=== PATIENT | male | born 1945 | race Caucasian/White ===

== ENCOUNTER 2020-04-14 11:00 | Outpatient (RCR) | payer MEDICARE, SELFPAY ==
[2020-04-07 09:27] VITALS: BP 107/47; PULSE 72; RESP 16; TEMP 36.5
--- NOTE | 2020-04-07 12:54 | PCM.WC.HP ---
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 Code(s): E11.622 - Type 2 diabetes mellitus with other skin ulcer; L97.319 - Non-pressure chronic ulcer of right ankle with unspecified severity (3) Diabetic ulcer of right lower leg Status: Chronic Code(s): E11.622 - Type 2 diabetes mellitus with other skin ulcer; L97.919 - Non-pressure chronic ulcer of unspecified part of right lower leg with unspecified severity (4) Alcoholism Status: Chronic Code(s): F10.20 - Alcohol dependence, uncomplicated (5) Decubitus ulcer of right hip, stage 4 Status: Chronic Code(s): L89.214 - Pressure ulcer of right hip, stage 4 (6) Diabetes mellitus type 2 in nonobese Status: Chronic Code(s): E11.9 - Type 2 diabetes mellitus without complications (7) Bipolar disorder Status: Chronic Code(s): F31.9 - Bipolar disorder, unspecified (8) Hyperlipidemia Status: Chronic Code(s): E78.5 - Hyperlipidemia, unspecified (9) Hypertension Status: Chronic Code(s): I10 - Essential (primary) hypertension History of Present Illness Date of Service: 04/07/20 Chief Complaint: Ulcers of right foot, right ankle, right lateral leg, and right hip History of Wound: The patient presents to the wound healing center today, 04/07/2020, for an initial evaluation of right lower extremity ulcers of the foot, ankle, lateral leg and hip. He has a past medical history significant for type 2 diabetes mellitus, hypertension, hyperlipidemia, anemia, tobacco use and alcoholism. He states he has been sober for about 4 months. He no longer takes Metformin, and states this was discontinued due to causing renal insufficiency. He states his diabetes is currently managed with diet and exercise, though he has been not unable to exercise in recent months. He states that in December he suffered a fall and laid on the ground for 5 days, during which time he developed these ulcers. He reports subsequent impaired movement and sensation of his right lower extremity from the mid lower leg to his toes. He was admitted to a senior living following hospitalization, and was receiving wound debridement approximately every 2 weeks. Santyl was used on the ulcers of his right lower leg, ankle and foot. A wound VAC was used for his right hip ulcer. He was discharged from the senior living on 04/03/2020, at which time the wound VAC was discontinued. Since 04/03/2020, the patient has been using wet to dry gauze dressings to the right hip daily. He is receiving home health care from [facility]. He reports he is able to ambulate with the use of a walker, and also uses a wheelchair at times. He denies any fever or chills. He states there was a concern for infection in his right lateral leg ulcer, and he was started on doxycycline, which he is currently taking. He reports occasional nausea, but denies vomiting or diarrhea. He also reports a decreased appetite. He denies any recent copious, purulent, or foul-smelling drainage from his ulcers. Past Medical History Past Medical History: Chronic Problems Diabetic ulcer of right foot (Chronic) Diabetic ulcer of right ankle (Chronic) Diabetic ulcer of right lower leg (Chronic) Decubitus ulcer of right hip, stage 4 (Chronic) Essential tremor (Chronic) Hyperlipidemia (Chronic) Hypertension (Chronic) Diabetes mellitus type 2 in nonobese (Chronic) Bipolar disorder (Chronic) Alcoholism (Chronic) Surgical History: - - ruptured colon repair. Allergies/Adverse Reactions: Allergies No Known Allergies Allergy (Verified 04/07/20 09:55) Home Medications: Ambulatory Orders Medication Instructions Recorded Gabapentin [Gralise] 600 mg PO QHS 09/12/16 Metoprolol Succinate 100 mg PO DAILY 09/12/16 Atorvastatin Calcium [Lipitor] 40 mg PO DAILY 09/13/16 Bacitracin Ointment 1 applic TOPICAL TID #1 tube 09/18/16 Magnesium Oxide [Mag-Ox 400] 400 mg PO DAILYCM #30 tablet 09/18/16 metFORMIN HCl [Glucophage] 500 mg PO BIDCM #60 tablet 09/18/16 - Family History Maternal - - mother is still alive, had small strokes. Paternal - - father had a stroke Smoking Status: Current every day smoker Review of Systems Constitutional: Denies: Chills, Fever, Night Sweats Eyes: Denies: Conjunctivae Inflammation, Eyelid Inflammation, Redness HEENT: Reports: Difficulty Hearing, Hard of Hearing Cardiovascular: Denies: Chest Pain Respiratory: Reports: Cough Gastrointestinal: Reports: Nausea. Denies: Diarrhea, Vomiting Genitourinary: Denies: Dysuria, Hematuria Musculoskeletal: Reports: Leg Pain - On palpation/manipulation of ulcer. Denies: Foot Pain Skin: Reports: Wounds - Ulcers of right hip, right lateral leg, right ankle, and right foot Neurological: Reports: Tremor. Denies: Change in Speech, Confusion Psychiatric: Reports: - - Bipolar disorder Endocrine: Reports: - - Type II diabetes mellitus Hematologic/ Lymphatic: Reports: Anemia - Physical Exam Vital Signs Temp Pulse Resp BP 97.7 F L 72 16 107/47 L 04/07/20 09:27 04/07/20 09:27 04/07/20 09:27 04/07/20 09:27 General: Alert, Cooperative, No apparent distress HEENT: Atraumatic Oral: Moist Mucosa Neck: Supple Lungs: Clear to auscultation, Normal air movement, No rhonchi, No wheeze, No rales Cardiovascular: Regular rate, Regular Rhythm, Murmur Abdomen: Bowel Sounds Present, Soft Extremities: No clubbing, No cyanosis, No edema, Capillary Refill Less than 3 Seconds, Peripheral Pulses Normal Skin: Ulcer/ Wound - Stage IV right hip ulcer, does not probe to bone, undermining present. Ulcers of right lateral leg, right ankle, and right foot with subcutaneous layers exposed. Small to moderate amounts of slough present. No clinical signs of infection including periulcer erythema, warmth, or purulent drainage Wound Measurements and Assessment WC - Nurse 1 - General Ulcer Measurement Start: 04/07/20 09:17 Freq: Status: Active Protocol: Activity Type Activity Date Activity User E-Sign Co-Sign Detail Recorded Client Recorded Date Recorded By Document 04/07/20 09:27 MS [id number] 04/07/20 09:52 MS 04/07/20 09:27 Wound Center Nurse 1 [Ulcer Assessment] #3 R Lat LE -Current Size (cm) - Length 5 -Current Size (cm) - Width 2.5 -Current Size (cm) - Depth 0.1 -Total Square Cm 12.5 -Photo Taken Yes -Exudate Amt Medium -Exudate Type Serosanguineous -Wound Margin Distinct, Outline Attached -Granulation Amt Medium (34-66%) -Granulation Quality Red -Necrosis Amt Medium (34-66%) -Necrotic Tissue Type Adherent Slough -Structure Exposed N/A -Texture (Cammie-wound Skin Appearance) Scarring -Moisture (Cammie-wound Skin Appearance No Abnormality ) -Color (Cammie-wound Skin Appearance) No Abnormality -Temperature (Cammie-wound Skin No Abnormality Appearance) (Pt Warm) -Tenderness on Palpation (Cammie-wound No Skin Appearance) -Ulcer Cleansing Wound Cleanser -Foul Odor after Cleansing No -Anesthetic Used 4% Lidocaine Solution #2 R Hip -Current Size (cm) - Length 4 -Current Size (cm) - Width 4.2 -Current Size (cm) - Depth 3 -Total Square Cm 16.8 -Photo Taken Yes -Undermining/Tunneling Starts (O' 3 clock) -Undermining/Tunneling Ends (O'clock) 5 -Maximum Distance (cm) 2.7 -Classification - Thickness Full Thickness without Exposed Support Structure -Exudate Amt Medium -Exudate Type Serosanguineous -Wound Margin Distinct, Outline Attached -Granulation Amt Medium (34-66%) -Granulation Quality Red -Necrosis Amt Medium (34-66%) -Necrotic Tissue Type Adherent Slough -Structure Exposed N/A -Texture (Cammie-wound Skin Appearance) Scarring -Moisture (Cammie-wound Skin Appearance No Abnormality, ) Dry/Scaly -Color (Cammie-wound Skin Appearance) No Abnormality -Temperature (Cammie-wound Skin No Abnormality Appearance) (Pt Warm) -Tenderness on Palpation (Cammie-wound No Skin Appearance) -Ulcer Cleansing Wound Cleanser -Foul Odor after Cleansing No -Anesthetic Used 4% Lidocaine Solution #1 R ankle -Current Size (cm) - Length 1.1 -Current Size (cm) - Width 0.9 -Current Size (cm) - Depth 0.3 -Total Square Cm 0.99 -Photo Taken Yes -Classification - Thickness Full Thickness without Exposed Support Structure -Exudate Amt Medium -Exudate Type Serosanguineous -Wound Margin Distinct, Outline Attached -Granulation Amt None Present (0 %) -Necrosis Amt Large (67-100%) -Necrotic Tissue Type Adherent Slough -Structure Exposed N/A -Texture (Cammie-wound Skin Appearance) Scarring -Moisture (Cammie-wound Skin Appearance No Abnormality ) -Color (Cammie-wound Skin Appearance) No Abnormality -Temperature (Cammie-wound Skin No Abnormality Appearance) (Pt Warm) -Tenderness on Palpation (Cammie-wound No Skin Appearance) -Ulcer Cleansing Wound Cleanser -Foul Odor after Cleansing No -Anesthetic Used 4% Lidocaine Solution Musculoskeletal: Muscle Wasting, Tenderness - On palpation/debridement of right hip and right lateral leg Neurological: Unsteady Gait Psych/Mental Status: Normal Affect, Appropriate Debridement Note Wound debrided: Right foot ulcer Laterality: Right Wound Grade/Stage: Mendez 1 Type of Debridement: Excisional debridement Anesthesia Used: 4% Lidocaine Solution Depth: in the subcutaneous layer Percentage of wound debrided: 100 Instrument Used: 3mm curette Tissue Removed: Slough and devitalized tissue Severity: Fat Layer Exposed Amount of bleeding with debridement: Mild Bleeding Controlled with: Pressure Patient tolerated procedure well - Additional Wound Wound debrided: Right ankle ulcer Laterality: Right Wound Grade/Stage: Mendez 1 Type of Debridement: Excisional debridement Anesthesia Used: 4% Lidocaine Solution Depth: in the subcutaneous layer Percentage of wound debrided: 100 Instrument Used: 5mm curette Tissue Removed: Slough and devitalized tissue Severity: Fat Layer Exposed Amount of bleeding with debridement: Mild Bleeding Controlled with: Pressure Patient tolerated procedure: Patient tolerated procedure well - Additional Wound Wound debrided: Right lateral leg ulcer Wound Grade/Stage: Stage II Type of Debridement: Excisional debridement Anesthesia Used: 4% Lidocaine Solution Depth: in the subcutaneous layer Percentage of wound debrided: 100 Instrument Used: 7mm curette Tissue Removed: Slough and devitalized tissue Severity: Fat Layer Exposed Amount of bleeding with debridement: Mild Bleeding Controlled with: Pressure Patient tolerated procedure: Patient tolerated procedure well - Additional Wound Wound debrided: Right hip ulcer Wound Grade/Stage: Stage IV Type of Debridement: Excisional debridement Anesthesia Used: 4% Lidocaine Solution Depth: to muscle Percentage of wound debrided: 100 Instrument Used: 7mm curette Tissue Removed: Slough and devitalized tissue Severity: Fat Layer Exposed Amount of bleeding with debridement: Mild Bleeding Controlled with: Pressure Patient tolerated procedure: Patient tolerated procedure well Assessment/Plan Active Problems 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 Wet-to-dry dressing applied to the right hip. Aquacel Ag dressing applied to the right lateral leg, right ankle, and right foot. Given the duration of the wound and failure of the wound to respond to standard wound care, we will apply for advanced skin substitutes for the diabetic ulcers of the right lateral leg, right ankle, and right foot. Given the depth and size of the right hip ulcer, we will apply for a wound VAC. We will initiate Dakin's wet-to-dry dressings to the right hip until wound VAC approval is obtained. We will resume the use of Santyl to the right lateral leg, right ankle, and right foot ulcers for the next week, with the plan to initiate use of advanced skin substitutes if/when approved. At home wound-care instructions: Patient's ulcers are to be cleansed daily with antibacterial soap and water. Dressings are to be changed daily. Compression: No edema is present today. Compression will be deferred for the time being. Off-loading: Avoid pressure at ulcer sites. Avoid prolonged standing or dangling of the legs. When seated, keep feet elevated at chest level. A Roho cushion will be ordered for the patient to use when utilizing his wheelchair. He was instructed on appropriate offloading when seated/lying down. Frequent position changes were encouraged. Diet: Patient encouraged to increase protein and vitamin C intake while taking caution to avoid high carbohydrate and/or sugar intake. Labs/cultures/imaging: Cultures ordered and collected today. Routine baseline labwork ordered. Vascular studies deferred for the time being, as peripheral pulses are normal and there is no presence of edema. Follow-up: Return to clinic in 1 week for re-evaluation. Return sooner or report to the emergency room should symptoms worsen, or new symptoms arise. Note: [employer] speech recognition radiochemical technician software was used to create portions of this document. Sound-alike and misspelled words, as well as other radiochemical technician errors may be contained in the documentation. Office Visits / Consults: [id number] OV L4 New [id number]: [id number] Berna subq tissue 20 sq cm/< - [id number] x1 and [id number] x1
[2020-04-14 11:43] VITALS: BP 100/36; PULSE 66; TEMP 36.7
--- NOTE | 2020-04-14 13:00 | PCM.WC.PN ---
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 Code(s): E11.622 - Type 2 diabetes mellitus with other skin ulcer; L97.319 - Non-pressure chronic ulcer of right ankle with unspecified severity (3) Diabetic ulcer of right lower leg Status: Chronic Code(s): E11.622 - Type 2 diabetes mellitus with other skin ulcer; L97.919 - Non-pressure chronic ulcer of unspecified part of right lower leg with unspecified severity (4) Alcoholism Status: Chronic Code(s): F10.20 - Alcohol dependence, uncomplicated (5) Decubitus ulcer of right hip, stage 4 Status: Chronic Code(s): L89.214 - Pressure ulcer of right hip, stage 4 (6) Diabetes mellitus type 2 in nonobese Status: Chronic Code(s): E11.9 - Type 2 diabetes mellitus without complications (7) Bipolar disorder Status: Chronic Code(s): F31.9 - Bipolar disorder, unspecified (8) Hyperlipidemia Status: Chronic Code(s): E78.5 - Hyperlipidemia, unspecified (9) Hypertension Status: Chronic Code(s): I10 - Essential (primary) hypertension Type of Wound Date of Service: 04/14/20 Chief Complaint: Ulcers of right foot, right ankle, right lateral leg, and right hip History of Wound: The patient presents to the wound healing center today, 04/07/2020, for an initial evaluation of right lower extremity ulcers of the foot, ankle, lateral leg and hip. He has a past medical history significant for type 2 diabetes mellitus, hypertension, hyperlipidemia, anemia, tobacco use and alcoholism. He states he has been sober for about 4 months. He no longer takes Metformin, and states this was discontinued due to causing renal insufficiency. He states his diabetes is currently managed with diet and exercise, though he has been not unable to exercise in recent months. He states that in December he suffered a fall and laid on the ground for 5 days, during which time he developed these ulcers. He reports subsequent impaired movement and sensation of his right lower extremity from the mid lower leg to his toes. He was admitted to a skilled nursing following hospitalization, and was receiving wound debridement approximately every 2 weeks. Santyl was used on the ulcers of his right lower leg, ankle and foot. A wound VAC was used for his right hip ulcer. He was discharged from the skilled nursing on 04/03/2020, at which time the wound VAC was discontinued. Since 04/03/2020, the patient has been using wet to dry gauze dressings to the right hip daily. He is receiving home health care from [place] at home. He reports he is able to ambulate with the use of a walker, and also uses a wheelchair at times. He denies any fever or chills. He states there was a concern for infection in his right lateral leg ulcer, and he was started on doxycycline, which he is currently taking. He reports occasional nausea, but denies vomiting or diarrhea. He also reports a decreased appetite. He denies any recent copious, purulent, or foul-smelling drainage from his ulcers. Progress of Wound: Home health has been performing daily wet-to-dry dressings with Dakin's to the right hip ulcer and daily Santyl dressing changes to the ulcers of the right leg, right ankle, and right foot. The patient denies any fever or chills. He completed a course of doxycycline on 04/11/2020. His right hip culture was positive for 1+ MRSA, susceptible to clindamycin and Bactrim. He was started on Bactrim on 04/11/2020 by his primary care doctor. He reports erythema and swelling of his right lower extremity last night, which is much improved this morning. A culture from his right leg was collected today. - Physical Exam Vital Signs Temp Pulse Resp BP 98.0 F 66 16 100/36 L 04/14/20 11:43 04/14/20 11:43 04/07/20 09:27 04/14/20 11:43 General: Alert, Cooperative, No apparent distress Oral: Moist Mucosa Lungs: Normal air movement Extremities: No clubbing, No cyanosis, Capillary Refill Less than 3 Seconds, Edema - Edema right lower extremity, Peripheral Pulses Normal, Tenderness - On debridement of right leg ulcer Skin: Ulcer/ Wound - Stage IV R hip ulcer, does not probe to bone, undermining present. Ulcers of R lateral leg, R ankle, & R foot w/ subcu layers exposed. Small to moderate amounts of slough present. Generalized, mild erythema, warmth, and edema of R lower extremity from knee to toes. No purulent/malodorous drainage Wound Measurements and Assessment WC - Nurse 1 - General Ulcer Measurement Start: 04/07/20 09:17 Freq: Status: Active Protocol: Activity Type Activity Date Activity User E-Sign Co-Sign Detail Recorded Client Recorded Date Recorded By Document 04/14/20 11:43 HARDIK [id number] 04/14/20 11:46 HARDIK 04/14/20 11:43 Wound Center Nurse 1 [Ulcer Assessment] #4 Right Lat Foot -Current Size (cm) - Length 0.3 -Current Size (cm) - Width 0.6 -Current Size (cm) - Depth 0.1 -Total Square Cm 0.18 -Exudate Amt Small -Exudate Type Serosanguineous -Wound Margin Distinct, Outline Attached -Granulation Amt Medium (34-66%) -Granulation Quality Red -Necrosis Amt Medium (34-66%) -Necrotic Tissue Type Adherent Slough -Texture (Cammie-wound Skin Appearance) Assessed, Scarring -Moisture (Cammie-wound Skin Appearance No Abnormality, ) Assessed -Color (Cammie-wound Skin Appearance) No Abnormality, Assessed -Temperature (Cammie-wound Skin No Abnormality Appearance) (Pt Warm) -Tenderness on Palpation (Cammie-wound No Skin Appearance) -Ulcer Cleansing Rinsed/ Irrigated with Saline -Foul Odor after Cleansing No -Anesthetic Used 4% Lidocaine Solution #3 R Lat LE -Current Size (cm) - Length 4.8 -Current Size (cm) - Width 3 -Current Size (cm) - Depth 0.1 -Total Square Cm 14.4 -Exudate Amt Medium -Exudate Type Serosanguineous -Wound Margin Distinct, Outline Attached -Granulation Amt Medium (34-66%) -Granulation Quality Red -Necrosis Amt Medium (34-66%) -Necrotic Tissue Type Adherent Slough -Texture (Cammie-wound Skin Appearance) Assessed, Scarring -Moisture (Cammie-wound Skin Appearance No Abnormality, ) Assessed -Color (Cammie-wound Skin Appearance) No Abnormality, Assessed -Temperature (Cammie-wound Skin No Abnormality Appearance) (Pt Warm) -Tenderness on Palpation (Cammie-wound No Skin Appearance) -Ulcer Cleansing Rinsed/ Irrigated with Saline -Foul Odor after Cleansing No -Anesthetic Used 4% Lidocaine Solution #2 R Hip -Current Size (cm) - Length 2.9 -Current Size (cm) - Width 3.5 -Current Size (cm) - Depth 1.4 -Total Square Cm 10.15 -Undermining/Tunneling Starts (O' 2 clock) -Undermining/Tunneling Ends (O'clock) 3 -Maximum Distance (cm) 3 -Exudate Amt Medium -Exudate Type Serosanguineous -Wound Margin Distinct, Outline Attached -Granulation Amt Medium (34-66%) -Granulation Quality Red -Necrosis Amt Medium (34-66%) -Necrotic Tissue Type Adherent Slough -Texture (Cammie-wound Skin Appearance) Assessed, Scarring -Moisture (Cammie-wound Skin Appearance No Abnormality, ) Assessed -Color (Cammie-wound Skin Appearance) No Abnormality, Assessed -Temperature (Cammie-wound Skin No Abnormality Appearance) (Pt Warm) -Tenderness on Palpation (Cammie-wound No Skin Appearance) -Ulcer Cleansing Rinsed/ Irrigated with Saline -Foul Odor after Cleansing No -Anesthetic Used 4% Lidocaine Solution #1 R ankle -Current Size (cm) - Length 0.5 -Current Size (cm) - Width 1 -Current Size (cm) - Depth 0.2 -Total Square Cm 0.5 -Exudate Amt Medium -Exudate Type Serosanguineous -Wound Margin Distinct, Outline Attached -Granulation Amt Medium (34-66%) -Granulation Quality Red -Necrosis Amt Medium (34-66%) -Necrotic Tissue Type Adherent Slough -Texture (Cammie-wound Skin Appearance) Assessed, Scarring -Moisture (Cammie-wound Skin Appearance No Abnormality, ) Assessed -Color (Cammie-wound Skin Appearance) No Abnormality, Assessed -Temperature (Cammie-wound Skin No Abnormality Appearance) (Pt Warm) -Tenderness on Palpation (Cammie-wound No Skin Appearance) -Ulcer Cleansing Rinsed/ Irrigated with Saline -Foul Odor after Cleansing No -Anesthetic Used 4% Lidocaine Solution WC - Nurse 3 - General Ulcer D/C NN Start: 04/07/20 09:17 Freq: Status: Active Protocol: Activity Type Activity Date Activity User E-Sign Co-Sign Detail Recorded Client Recorded Date Recorded By Document 04/14/20 12:32 HARDIK [id number] 04/14/20 12:32 HARDIK 02/26/21 12:32 Wound Care Nurse 3 [Wound Dressing] #4 Right Lat Foot -Ulcer Cleansing Rinsed/ Irrigated with Saline -Primary Dressing Applied C Hydrogel ($) -Primary Dressing Covered/Secured Dry Gauze, with Secured with Tape #3 R Lat LE -Ulcer Cleansing Rinsed/ Irrigated with Saline -Primary Dressing Applied C Hydrogel ($) -Primary Dressing Covered/Secured Dry Gauze, with Secured with Tape #1 R ankle -Ulcer Cleansing Rinsed/ Irrigated with Saline -Primary Dressing Applied C Hydrogel ($) -Primary Dressing Covered/Secured Dry Gauze, with Secured with Tape Pain Scale: 0-10 Numeric [Pain] -Is Patient Pain Free? Yes WC - Visit Discharge [Visit Discharge Information] -Discharge Condition Stable -Ambulatory Status Walker -Transportation Private Auto -Accompanied by grandson Psych/Mental Status: Normal Affect, Appropriate Debridement Note Post-Debridement Measurements/Treatment WC - Nurse 2 - General Ulcer CM Notes Start: 04/07/20 09:17 Freq: Status: Active Protocol: Activity Type Activity Date Activity User E-Sign Co-Sign Detail Recorded Client Recorded Date Recorded By Document 04/07/20 14:43 PL [id number] 04/07/20 14:53 PL 04/07/20 14:43 Wound Center Nurse 2 #4 Right Lat Foot -Time 10:30 -Correct Patient Yes -Correct Side, Site, Position Yes -Correct Procedure Yes -Procedure Performed Yes -Type of Procedure Debridement -Clinical Debridement Subcutaneous -Tissue Removed Subcutaneous -Post Debridement (cm) - Length 0.7 -Post Debridement (cm) - Width 1.0 -Post Debridement (cm) - Depth 0.1 -Total Square (Post) (cm) 0.70 -Area of Debridement (cm) - Length 0.7 -Area of Debridement (cm) - Width 1.0 -Total Square (Area) (cm) 0.70 -Tunneling No -Undermining/Tunneling No -Circular Undermining No -Wound/Ulcer Outcome Not Healed -Ulcer Cleansing Rinsed/ Irrigated with Saline -Foul Odor after Cleansing No -Bioengineered Tissue No -Bleeding Controlled with Pressure -Treatment Response Procedure Tolerated Well -Debridement - Subq, 1st 20sq cm No #3 R Lat LE -Time 10:30 -Correct Patient Yes -Correct Side, Site, Position Yes -Correct Procedure Yes -Procedure Performed Yes -Type of Procedure Debridement -Clinical Debridement Subcutaneous -Tissue Removed Subcutaneous -Post Debridement (cm) - Length 5.5 -Post Debridement (cm) - Width 2.4 -Post Debridement (cm) - Depth 0.1 -Total Square (Post) (cm) 13.20 -Area of Debridement (cm) - Length 5.5 -Area of Debridement (cm) - Width 2.4 -Total Square (Area) (cm) 13.20 -Tunneling No -Undermining/Tunneling No -Circular Undermining No -Wound/Ulcer Outcome Not Healed -Ulcer Cleansing Rinsed/ Irrigated with Saline -Foul Odor after Cleansing No -Bioengineered Tissue No -Debridement - Subq, 1st 20sq cm No #2 R Hip -Time 10:30 -Correct Patient Yes -Correct Side, Site, Position Yes -Correct Procedure Yes -Procedure Performed Yes -Type of Procedure Debridement -Clinical Debridement Muscle / Fascia -Tissue Removed Subcutaneous, Muscle -Post Debridement (cm) - Length 3.9 -Post Debridement (cm) - Width 4.7 -Post Debridement (cm) - Depth 3.8 -Total Square (Post) (cm) 18.33 -Area of Debridement (cm) - Length 3.9 -Area of Debridement (cm) - Width 4.7 -Total Square (Area) (cm) 18.33 -Tunneling No -Undermining/Tunneling Yes -Undermining/Tunneling Starts (O'clock 2 ) -Undermining/Tunneling Ends (O'clock) 5 -Maximum Distance (cm) 2.9 -Circular Undermining No -Wound/Ulcer Outcome Not Healed -Ulcer Cleansing Rinsed/ Irrigated with Saline -Foul Odor after Cleansing No -Bioengineered Tissue No -Bleeding Controlled with Pressure -Treatment Response Procedure Tolerated Well -Debridement - Muscle / Fascia, 1st Yes 20sq cm #1 R ankle -Time 10:30 -Correct Patient Yes -Correct Side, Site, Position Yes -Correct Procedure Yes -Procedure Performed Yes -Type of Procedure Debridement -Clinical Debridement Subcutaneous -Tissue Removed Subcutaneous -Post Debridement (cm) - Length 1.8 -Post Debridement (cm) - Width 1.5 -Post Debridement (cm) - Depth 0.3 -Total Square (Post) (cm) 2.70 -Area of Debridement (cm) - Length 1.8 -Area of Debridement (cm) - Width 1.5 -Total Square (Area) (cm) 2.70 -Tunneling No -Undermining/Tunneling No -Circular Undermining No -Wound/Ulcer Outcome Not Healed -Ulcer Cleansing Rinsed/ Irrigated with Saline -Foul Odor after Cleansing No -Bioengineered Tissue No -Debridement - Subq, 1st 20sq cm Yes Pain Scale: 0-10 Numeric Is Patient Pain Free? Yes WC - Nurse 3 - General Ulcer D/C NN Start: 04/07/20 09:17 Freq: Status: Active Protocol: Activity Type Activity Date Activity User E-Sign Co-Sign Detail Recorded Client Recorded Date Recorded By Document 04/14/20 12:32 HARDIK [id number] 04/14/20 12:32 HARDIK 04/14/20 12:32 Wound Care Nurse 3 #4 Right Lat Foot -Ulcer Cleansing Rinsed/ Irrigated with Saline -Primary Dressing Applied C Hydrogel ($) -Primary Dressing Covered/Secured with Dry Gauze, Secured with Tape #3 R Lat LE -Ulcer Cleansing Rinsed/ Irrigated with Saline -Primary Dressing Applied C Hydrogel ($) -Primary Dressing Covered/Secured with Dry Gauze, Secured with Tape #1 R ankle -Ulcer Cleansing Rinsed/ Irrigated with Saline -Primary Dressing Applied C Hydrogel ($) -Primary Dressing Covered/Secured with Dry Gauze, Secured with Tape Pain Scale: 0-10 Numeric Is Patient Pain Free? Yes WC - Visit Discharge Discharge Condition Stable Ambulatory Status Walker Transportation Private Auto Accompanied by alexandra Wound debrided: Right foot ulcer Laterality: Right Wound Grade/Stage: Mendez 1 Type of Debridement: Excisional debridement Anesthesia Used: 4% Lidocaine Solution Depth: in the subcutaneous layer Percentage of wound debrided: 100 Instrument Used: 5mm curette Tissue Removed: Slough and devitalized tissue Severity: Fat Layer Exposed Amount of bleeding with debridement: Mild Bleeding Controlled with: Pressure Patient tolerated procedure well - Additional Wound Wound debrided: Right ankle ulcer Laterality: Right Wound Grade/Stage: Mendez 1 Type of Debridement: Excisional debridement Anesthesia Used: 4% Lidocaine Solution Depth: in the subcutaneous layer Percentage of wound debrided: 100 Instrument Used: 5mm curette Tissue Removed: Slough and devitalized tissue Severity: Fat Layer Exposed Amount of bleeding with debridement: Mild Bleeding Controlled with: Pressure Patient tolerated procedure: Patient tolerated procedure well - Additional Wound Wound debrided: Right lateral leg ulcer Laterality: Right Wound Grade/Stage: Stage II Type of Debridement: Excisional debridement Anesthesia Used: 4% Lidocaine Solution, Cetacaine Depth: in the subcutaneous layer Percentage of wound debrided: 100 Instrument Used: 7mm curette Tissue Removed: Slough and devitalized tissue Severity: Fat Layer Exposed Amount of bleeding with debridement: Mild Bleeding Controlled with: Compression and gauze Patient tolerated procedure: Patient tolerated procedure well - Additional Wound Wound debrided: Right hip ulcer Laterality: Right Wound Grade/Stage: Stage IV Type of Debridement: Excisional debridement Anesthesia Used: 4% Lidocaine Solution, Cetacaine Depth: in the subcutaneous layer, to muscle Percentage of wound debrided: 100 Instrument Used: 7mm curette Tissue Removed: Slough and devitalized tissue Severity: Fat Layer Exposed Amount of bleeding with debridement: Mild Bleeding Controlled with: Pressure Patient tolerated procedure: Patient tolerated procedure well Assessment/Plan Active Problems 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 Wound VAC applied to the right hip at 150 mmHg negative pressure. Aquacel Ag dressing applied to the right lateral leg, right ankle, and right foot. 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 We will continue the use of Santyl to the right lateral leg, right ankle, and right foot ulcers for the next week, with the plan to initiate use of advanced skin substitutes if/when approved. At home wound-care instructions: Patient's right leg, right ankle, and right foot ulcers are to be cleansed daily with antibacterial soap and water and dressings are to be changed daily. The patient's right hip wound VAC is to be changed 3 times weekly. Off-loading: Avoid pressure at ulcer sites. Avoid prolonged standing or dangling of the legs. When seated, keep feet elevated at chest level. A Roho cushion was ordered for the patient to use when utilizing his wheelchair. He was instructed on appropriate offloading when seated/lying down. Frequent position changes were encouraged. Diet: Patient encouraged to increase protein and vitamin C intake while taking caution to avoid high carbohydrate and/or sugar intake. Labs/cultures/imaging: The patient's right hip culture was positive for 1+ MRSA. He was started on Bactrim by his primary care provider. A culture of his right leg ulcer was obtained today. Changes to antibiotics will be initiated as needed based on culture results. Routine baseline labwork (CRP, CMP, CBC D, ESR, prealbumin) was significant for the following: CRP 10.1 (H), glucose 123 (H), normal serum creatinine, estimated GFR 81.4, ESR 103 (H), RBC 3.46 (L), hemoglobin 10.5 (L), hematocrit 31.2 (L). Vascular studies deferred for the time being; we will continue to monitor. Follow-up: Return to clinic in 1 week for re-evaluation. Return sooner or report to the emergency room should symptoms worsen, or new symptoms arise. Note: [email or web address] speech recognition clothes separator software was used to create portions of this document. Sound-alike and misspelled words, as well as other clothes separator errors may be contained in the documentation. [id number]: [id number] Berna musc/fascia 20 sq cm/< - [id number] x1 + [id number] x1 (2 separate wounds)
== END 2020-04-16 23:59 ==
LOC: WC 11:00
PROVIDERS: PCP Student in an Organized Health Care Education/Training Program; Referring Provider Family Medicine; Visit Provider Nurse Practitioner Family
DX: E11.621 Type 2 diabetes mellitus with foot ulcer (principal); L97.312 Non-pressure chronic ulcer of right ankle with fat layer exposed; E11.622 Type 2 diabetes mellitus with other skin ulcer; L89.214 Pressure ulcer of right hip, stage 4; E78.5 Hyperlipidemia, unspecified; I10 Essential (primary) hypertension; F10.20 Alcohol dependence, uncomplicated; F17.200 Nicotine dependence, unspecified, uncomplicated; L97.512 Non-pressure chronic ulcer of other part of right foot with fat layer exposed; G25.0 Essential tremor; Z79.899 Other long term (current) drug therapy; Z79.84 Long term (current) use of oral hypoglycemic drugs
CPT/HCPCS: 11042; 11043; 87070; 87075; 87077; 87186; 87205; 97605; 99213; G0463

== ENCOUNTER 2020-05-12 10:30 | Outpatient (RCR) | payer MEDICARE, SELFPAY ==
[2016-09-12 23:57] VITALS: BMI 20.8
[2020-04-17 00:38] VITALS: BP 100/36; PULSE 66; RESP 16; TEMP 36.7
[2020-04-21 10:36] VITALS: BP 125/55; PULSE 83; TEMP 36.1; BMI 20.8
--- NOTE | 2020-04-21 13:31 | PN.PCM_ITS ---
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 Code(s): E11.622 - Type 2 diabetes mellitus with other skin ulcer; L97.919 - Non-pressure chronic ulcer of unspecified part of right lower leg with unspecified severity (3) Diabetic ulcer of right ankle Status: Chronic Code(s): E11.622 - Type 2 diabetes mellitus with other skin ulcer; L97.319 - Non-pressure chronic ulcer of right ankle with unspecified severity (4) Diabetic ulcer of right foot Status: Chronic Code(s): E11.621 - Type 2 diabetes mellitus with foot ulcer; L97.519 - Non-pressure chronic ulcer of other part of right foot with unspecified severity (5) Decubitus ulcer of right hip, stage 4 Status: Chronic Code(s): L89.214 - Pressure ulcer of right hip, stage 4 (6) Diabetes mellitus type 2 in nonobese Status: Chronic Code(s): E11.9 - Type 2 diabetes mellitus without complications (7) Alcoholism Status: Chronic Code(s): F10.20 - Alcohol dependence, uncomplicated (8) Bipolar disorder Status: Chronic Code(s): F31.9 - Bipolar disorder, unspecified (9) Hyperlipidemia Status: Chronic Code(s): E78.5 - Hyperlipidemia, unspecified (10) Hypertension Status: Chronic Code(s): I10 - Essential (primary) hypertension Type of Wound Date of Service: 04/21/20 Chief Complaint: Ulcers of right foot, right ankle, right lateral leg, and right hip History of Wound: The patient presents to the wound healing center today, 04/07/2020, for an initial evaluation of right lower extremity ulcers of the foot, ankle, lateral leg and hip. He has a past medical history significant for type 2 diabetes mellitus, hypertension, hyperlipidemia, anemia, tobacco use and alcoholism. He states he has been sober for about 4 months. He no longer takes Metformin, and states this was discontinued due to causing renal insufficiency. He states his diabetes is currently managed with diet and exercise, though he has been not unable to exercise in recent months. He states that in December he suffered a fall and laid on the ground for 5 days, during which time he developed these ulcers. He reports subsequent impaired movement and sensation of his right lower extremity from the mid lower leg to his toes. He was admitted to a [place] [facility] following hospitalization, and was receiving wound debridement approximately every 2 weeks. Santyl was used on the ulcers of his right lower leg, ankle and foot. A wound VAC was used for his right hip ulcer. He was discharged from the [place] [facility] on 04/03/2020, at which time the wound VAC was discontinued. Since 04/03/2020, the patient has been using wet to dry gauze dressings to the right hip daily. He is receiving home health care from [facility]. He reports he is able to ambulate with the use of a walker, and also uses a wheelchair at times. He denies any fever or chills. He states there was a concern for infection in his right lateral leg ulcer, and he was started on doxycycline, which he is currently taking. He reports occasional nausea, but denies vomiting or diarrhea. He also reports a decreased appetite. He denies any recent copious, purulent, or foul-smelling drainage from his ulcers. Progress of Wound: Wound VAC was applied to the right hip ulcer last week. He notes home health has been having difficulty with operating and applying the [facility]. He reports that last night the VAC was not suctioning and he had a large amount of drainage leak out from his right hip ulcer. He has been compliant with the use of daily Santyl dressing changes to the ulcers of the right leg, right ankle, and right foot. The patient denies any fever or chills. He completed a course of doxycycline on 04/11/2020. His right hip culture was positive for 1+ MRSA, susceptible to clindamycin and Bactrim. He was started on Bactrim on 04/11/2020 by his primary care doctor. A culture was collected from his right lower leg ulcer on 04/14/2020. This was positive for 1+ Staph aureus (susceptible to Bactrim) and Staph epidermidis which possibly indicated skin contamination. Bactrim was continued. In the past week, the patient's right lower extremity erythema, warmth, and swelling have worsened. - Physical Exam Vital Signs Temp Pulse Resp BP 97.0 F L 83 16 125/55 H 04/21/20 10:36 04/21/20 10:36 04/17/20 00:38 04/21/20 10:36 General: Alert, Cooperative, No apparent distress Oral: Moist Mucosa Lungs: Normal air movement Extremities: No clubbing, No cyanosis, Capillary Refill Less than 3 Seconds, Edema - 4+ pitting edema of right lower extremity, Peripheral Pulses Normal Skin: Ulcer/ Wound - Stage IV R hip ulcer, does not probe to bone, undermining present. Ulcers of R lateral leg, R, and R ankle with subcu layer is exposed. Small to moderate amounts of slough present. No purulent/malodorous drainage., Rash Present - Cellulitic rash of right lower extremity from below knee to foot. Wound Measurements and Assessment WC - Nurse 1 - General Ulcer Measurement Start: 04/21/20 10:36 Freq: Status: Active Protocol: Activity Type Activity Date Activity User E-Sign Co-Sign Detail Recorded Client Recorded Date Recorded By Document 04/21/20 10:36 HARDIK [id number] 04/21/20 10:47 HARDIK 04/21/20 10:36 Wound Center Nurse 1 [Ulcer Assessment] #4 Right Lat Foot -Current Size (cm) - Length 0.5 -Current Size (cm) - Width 0.9 -Current Size (cm) - Depth 0.2 -Total Square Cm 0.45 -Exudate Amt Small -Exudate Type Serosanguineous -Wound Margin Distinct, Outline Attached -Granulation Amt Small (1-33%) -Granulation Quality [place] -Necrosis Amt Small (1-33%) -Necrotic Tissue Type Adherent Slough -Texture (Cammie-wound Skin Appearance) Assessed, Scarring -Moisture (Cammie-wound Skin Appearance No Abnormality, ) Assessed -Color (Cammie-wound Skin Appearance) No Abnormality, Assessed -Temperature (Cammie-wound Skin No Abnormality Appearance) (Pt Warm) -Tenderness on Palpation (Cammie-wound No Skin Appearance) -Ulcer Cleansing Rinsed/ Irrigated with Saline -Foul Odor after Cleansing No -Anesthetic Used 4% Lidocaine Solution #3 R Lat LE -Current Size (cm) - Length 4.9 -Current Size (cm) - Width 3.5 -Current Size (cm) - Depth 0.1 -Total Square Cm 17.15 -Exudate Amt Medium -Exudate Type Serosanguineous -Wound Margin Distinct, Outline Attached -Granulation Amt Medium (34-66%) -Granulation Quality Red -Necrosis Amt Medium (34-66%) -Necrotic Tissue Type Adherent Slough -Texture (Cammie-wound Skin Appearance) Assessed, Scarring -Moisture (Cammie-wound Skin Appearance No Abnormality, ) Assessed -Color (Cammie-wound Skin Appearance) No Abnormality, Assessed -Temperature (Cammie-wound Skin No Abnormality Appearance) (Pt Warm) -Tenderness on Palpation (Cammie-wound No Skin Appearance) -Ulcer Cleansing Rinsed/ Irrigated with Saline -Foul Odor after Cleansing No -Anesthetic Used 4% Lidocaine Solution #2 R Hip -Current Size (cm) - Length 4 -Current Size (cm) - Width 2.5 -Current Size (cm) - Depth 0.9 -Total Square Cm 10.0 -Exudate Amt Medium -Exudate Type Serosanguineous -Wound Margin Distinct, Outline Attached -Granulation Amt Medium (34-66%) -Granulation Quality Red -Necrosis Amt Medium (34-66%) -Necrotic Tissue Type Adherent Slough -Texture (Cammie-wound Skin Appearance) Assessed, Scarring -Moisture (Cammie-wound Skin Appearance No Abnormality, ) Assessed -Color (Cammie-wound Skin Appearance) No Abnormality, Assessed -Temperature (Cammie-wound Skin No Abnormality Appearance) (Pt Warm) -Tenderness on Palpation (Cammie-wound No Skin Appearance) -Ulcer Cleansing Rinsed/ Irrigated with Saline -Foul Odor after Cleansing No -Anesthetic Used 4% Lidocaine Solution #1 R ankle -Current Size (cm) - Length 1.5 -Current Size (cm) - Width 1.7 -Current Size (cm) - Depth 0.3 -Total Square Cm 2.55 -Exudate Amt Medium -Exudate Type Serosanguineous -Wound Margin Distinct, Outline Attached -Granulation Amt Medium (34-66%) -Granulation Quality Red -Necrosis Amt Medium (34-66%) -Necrotic Tissue Type Adherent Slough -Texture (Cammie-wound Skin Appearance) Assessed, Scarring -Moisture (Cammie-wound Skin Appearance No Abnormality, ) Assessed -Color (Cammie-wound Skin Appearance) No Abnormality, Assessed -Temperature (Cammie-wound Skin No Abnormality Appearance) (Pt Warm) -Tenderness on Palpation (Cammie-wound No Skin Appearance) -Ulcer Cleansing Rinsed/ Irrigated with Saline -Foul Odor after Cleansing No -Anesthetic Used 4% Lidocaine Solution WC - Nurse 3 - General Ulcer D/C NN Start: 04/21/20 10:36 Freq: Status: Active Protocol: Activity Type Activity Date Activity User E-Sign Co-Sign Detail Recorded Client Recorded Date Recorded By Document 04/21/20 11:22 MS [id number] 04/21/20 11:25 MS 04/21/20 11:22 Wound Care Nurse 3 [Wound Dressing] #4 Right Lat Foot -Ulcer Cleansing Rinsed/ Irrigated with Saline -Foul Odor after Cleansing No -Other Dressing hydrogel,abd -Primary Dressing Covered/Secured Dry Gauze, with Secured with Tape #3 R Lat LE -Ulcer Cleansing Rinsed/ Irrigated with Saline -Other Dressing hydrogel,abd -Primary Dressing Covered/Secured Dry Gauze, with Secured with Tape #2 R Hip -Ulcer Cleansing Rinsed/ Irrigated with Saline -Foul Odor after Cleansing No -Negative Pressure Wound Therapy Continue -Setting (mmHg) 150 -Negative Pressure is Continuous -NPWT Application Charge ($) NPWT </= 50 sq cm #1 R ankle -Ulcer Cleansing Rinsed/ Irrigated with Saline -Other Dressing hydrogel,abd -Primary Dressing Covered/Secured Dry Gauze, with Secured with Tape Pain Scale: 0-10 Numeric [Pain] -Is Patient Pain Free? Yes WC - Visit Discharge [Visit Discharge Information] -Discharge Condition Stable -Ambulatory Status Wheelchair -Clinical Summary of Care Provided Yes Musculoskeletal: Muscle Wasting Psych/Mental Status: Normal Affect, Appropriate Debridement Note Post-Debridement Measurements/Treatment WC - Nurse 3 - General Ulcer D/C NN Start: 04/21/20 10:36 Freq: Status: Active Protocol: Activity Type Activity Date Activity User E-Sign Co-Sign Detail Recorded Client Recorded Date Recorded By Document 04/21/20 11:22 MS [id number] 04/21/20 11:25 MS 04/21/20 11:22 Wound Care Nurse 3 #4 Right Lat Foot -Ulcer Cleansing Rinsed/ Irrigated with Saline -Foul Odor after Cleansing No -Other Dressing hydrogel,abd -Primary Dressing Covered/Secured with Dry Gauze, Secured with Tape #3 R Lat LE -Ulcer Cleansing Rinsed/ Irrigated with Saline -Other Dressing hydrogel,abd -Primary Dressing Covered/Secured with Dry Gauze, Secured with Tape #2 R Hip -Ulcer Cleansing Rinsed/ Irrigated with Saline -Foul Odor after Cleansing No -Negative Pressure Wound Therapy Continue -Setting (mmHg) 150 -Negative Pressure is Continuous -NPWT Application Charge ($) NPWT </= 50 sq cm #1 R ankle -Ulcer Cleansing Rinsed/ Irrigated with Saline -Other Dressing hydrogel,abd -Primary Dressing Covered/Secured with Dry Gauze, Secured with Tape Pain Scale: 0-10 Numeric Is Patient Pain Free? Yes WC - Visit Discharge Discharge Condition Stable Ambulatory Status Wheelchair Clinical Summary of Care Provided Yes Wound debrided: Right foot ulcer Laterality: Right Wound Grade/Stage: Mendez 1 Type of Debridement: Excisional debridement Anesthesia Used: 4% Lidocaine Solution Depth: Down to and including healthy tissue, in the subcutaneous layer Percentage of wound debrided: 100 Instrument Used: 3mm curette Tissue Removed: Slough and devitalized tissue Severity: Fat Layer Exposed Amount of bleeding with debridement: Mild Bleeding Controlled with: Pressure Patient tolerated procedure well - Additional Wound Wound debrided: Right ankle ulcer Laterality: Right Wound Grade/Stage: Mendez 1 Type of Debridement: Excisional debridement Anesthesia Used: 4% Lidocaine Solution Depth: Down to and including healthy tissue, in the subcutaneous layer Percentage of wound debrided: 100 Instrument Used: 5mm curette Tissue Removed: Slough and devitalized tissue Severity: Fat Layer Exposed Amount of bleeding with debridement: Mild Bleeding Controlled with: Pressure Patient tolerated procedure: Patient tolerated procedure well - Additional Wound Wound debrided: Right lateral leg ulcer Laterality: Right Wound Grade/Stage: Stage II Type of Debridement: Excisional debridement Anesthesia Used: 4% Lidocaine Solution, Cetacaine Depth: Down to and including healthy tissue, in the subcutaneous layer Percentage of wound debrided: 100 Instrument Used: 7mm curette Tissue Removed: Slough and devitalized tissue Severity: Fat Layer Exposed Amount of bleeding with debridement: Mild Bleeding Controlled with: Pressure Patient tolerated procedure: Patient tolerated procedure well - Additional Wound Wound debrided: Right hip ulcer Laterality: Right Wound Grade/Stage: Stage IV Type of Debridement: Excisional debridement Anesthesia Used: 4% Lidocaine Solution, Cetacaine Depth: in the subcutaneous layer Percentage of wound debrided: 100 Instrument Used: 7mm curette Tissue Removed: Slough and devitalized tissue Severity: Fat Layer Exposed Amount of bleeding with debridement: Mild Bleeding Controlled with: Pressure Patient tolerated procedure: Patient tolerated procedure well Assessment/Plan Assessment: See above Plan: Debridement performed today in clinic. Wound VAC applied to the right hip at 150 mmHg negative pressure. Aquacel Ag dressing applied to the right lateral leg, right ankle, and right foot. 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 We will continue the use of Santyl to the right lateral leg, right ankle, and right foot ulcers for the next week, with the plan to initiate use of advanced skin substitutes if/when approved. At home wound-care instructions: Patient's right leg, right ankle, and right foot ulcers are to be cleansed daily with antibacterial soap and water and dressings are to be changed daily. The patient's right hip wound VAC is to be changed 3 times weekly. Off-loading: Avoid pressure at ulcer sites. Avoid prolonged standing or dangling of the legs. When seated, keep feet elevated at chest level. A Roho cushion was ordered for the patient to use when utilizing his wheelchair. He was instructed on appropriate offloading when seated/lying down. Frequent position changes were encouraged. Diet: Patient encouraged to increase protein and vitamin C intake while taking caution to avoid high carbohydrate and/or sugar intake. Labs/cultures/imaging: The patient's right hip culture was positive for 1+ MRSA. He was started on Bactrim by his primary care provider. A culture of his right leg ulcer on 04/14/2020 was positive for 1+ Staph aureus (susceptible to Bactrim) and Staphylococcus epidermidis (possible skin contamination). The patient's right lower extremity cellulitis has worsened in the past week. Bactrim will be discontinued and clindamycin 450 mg p.o. 3 times daily will be initiated. The patient was advised to report to the emergency room if at any time his redness, warmth, or swelling of his right lower extremity worsens, or if he develops fever, chills, or general feeling of illness. He was advised to report to the emergency room if his right lower extremity erythema, warmth and swelling do not improve in the next 2 days, as he may require IV antibiotic treatment. Routine baseline labwork (CRP, CMP, CBC D, ESR, prealbumin) was significant for the following: CRP 10.1 (H), glucose 123 (H), normal serum creatinine, estimated GFR 81.4, ESR 103 (H), RBC 3.46 (L), hemoglobin 10.5 (L), hematocrit 31.2 (L). Vascular studies deferred for the time being; we will continue to monitor. Follow-up: Return to clinic in 1 week for re-evaluation. Return sooner or report to the emergency room should symptoms worsen, or new symptoms arise. Note: [employer] ??? speech recognition radar signal processing engineer software was used to create portions of this document. Sound-alike and misspelled words, as well as other radar signal processing engineer errors may be contained in the documentation. [id number]: [id number] Berna musc/fascia 20 sq cm/< - [id number] + [id number] (2 separate wounds)
[2020-04-28 10:31] VITALS: TEMP 36.2; BMI 20.8
[2020-04-28 10:46] VITALS: BP 130/72; PULSE 64; TEMP 36.2; BMI 20.8
--- NOTE | 2020-04-28 13:44 | PN.PCM_ITS ---
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 Code(s): E11.622 - Type 2 diabetes mellitus with other skin ulcer; L97.919 - Non-pressure chronic ulcer of unspecified part of right lower leg with unspecified severity (3) Diabetic ulcer of right ankle Status: Chronic Code(s): E11.622 - Type 2 diabetes mellitus with other skin ulcer; L97.319 - Non-pressure chronic ulcer of right ankle with unspecified severity (4) Diabetic ulcer of right foot Status: Chronic Code(s): E11.621 - Type 2 diabetes mellitus with foot ulcer; L97.519 - Non-pressure chronic ulcer of other part of right foot with unspecified severity (5) Decubitus ulcer of right hip, stage 4 Status: Chronic Code(s): L89.214 - Pressure ulcer of right hip, stage 4 (6) Diabetes mellitus type 2 in nonobese Status: Chronic Code(s): E11.9 - Type 2 diabetes mellitus without complications (7) Alcoholism Status: Chronic Code(s): F10.20 - Alcohol dependence, uncomplicated (8) Bipolar disorder Status: Chronic Code(s): F31.9 - Bipolar disorder, unspecified (9) Hyperlipidemia Status: Chronic Code(s): E78.5 - Hyperlipidemia, unspecified (10) Hypertension Status: Chronic Code(s): I10 - Essential (primary) hypertension Type of Wound Date of Service: 04/28/20 Chief Complaint: Ulcers of right foot, right ankle, right lateral leg, and right hip History of Wound: The patient presents to the wound healing center today, 04/07/2020, for an initial evaluation of right lower extremity ulcers of the foot, ankle, lateral leg and hip. He has a past medical history significant for type 2 diabetes mellitus, hypertension, hyperlipidemia, anemia, tobacco use and alcoholism. He states he has been sober for about 4 months. He no longer takes Metformin, and states this was discontinued due to causing renal insufficiency. He states his diabetes is currently managed with diet and exercise, though he has been not unable to exercise in recent months. He states that in December he suffered a fall and laid on the ground for 5 days, during which time he developed these ulcers. He reports subsequent impaired movement and sensation of his right lower extremity from the mid lower leg to his toes. He was admitted to a half-way following hospitalization, and was receiving wound debridement approximately every 2 weeks. Santyl was used on the ulcers of his right lower leg, ankle and foot. A wound VAC was used for his right hip ulcer. He was discharged from the half-way on 04/03/2020, at which time the wound VAC was discontinued. Since 04/03/2020, the patient has been using wet to dry gauze dressings to the right hip daily. He is receiving home health care from [facility]. He reports he is able to ambulate with the use of a walker, and also uses a wheelchair at times. He denies any fever or chills. He states there was a concern for infection in his right lateral leg ulcer, and he was started on doxycycline, which he is currently taking. He reports occasional nausea, but denies vomiting or diarrhea. He also reports a decreased appetite. He denies any recent copious, purulent, or foul-smelling drainage from his ulcers. Progress of Wound: The patient has been using wound VAC to his right hip ulcer, and is tolerating this well. His right hip ulcer has increased in size this w [facility]. He has foul-smelling drainage from his right hip ulcer today. He has been compliant with the use of daily Santyl dressing changes to the ulcers of the right leg, right ankle, and right foot. He denies any foul-smelling drainage from these ulcers. The patient denies any fever or chills. He completed a course of doxycycline on 04/11/2020. Patient's right hip culture from 04/07/2020 was positive for 1+ MRSA (susceptible to Bactrim), and he was started on Bactrim by his PCP on 04/11/20. Patient's right lower leg culture from 04/14/2020 was positive for rare MRSA (susceptible to Bactrim). Bactrim was continued. In the past 2 weeks, the patient developed right lower extremity erythema, warmth, and swelling which spread to the left lower extremity as well. At last week's appointment, Bactrim was discontinued and he was started on Clindamycin 450mg PO TID x 10 days. (Cultures showed susceptibility to clindamycin, and negative for inducible clindamycin resistance.) Since initiation of clindamycin, the patient and his caregiver report significant improvement in the erythema and edema of his bilateral lower extremities. Clindamycin is causing frequent, loose stools. - Physical Exam Vital Signs Temp Pulse Resp BP 97.2 F L 64 16 130/72 H 04/28/20 10:46 04/28/20 10:46 04/17/20 00:38 04/28/20 10:46 General: Alert, Cooperative, No apparent distress Oral: Moist Mucosa Neck: Supple, Trachea Midline Lungs: Normal air movement Extremities: No clubbing, No cyanosis, Capillary Refill Less than 3 Seconds, Edema - 3+ pitting edema bilateral lower extremities, Peripheral Pulses Normal Skin: Ulcer/ Wound - Stage IV R hip ulcer, does not probe to bone, undermining present. Malodorous yellow?green drainage present. Ulcers of R lateral leg, R foot, and R ankle with subcu layers exposed. Small to moderate amounts of slough present. No purulent/malodorous drainage., Rash Present - Cellulitic rash of right lower extremity from knee to foot has improved. Bilateral lower e xtremities remain warm to touch. Wound Measurements and Assessment WC - Nurse 1 - General Ulcer Measurement Start: 04/21/20 10:36 Freq: Status: Active Protocol: Activity Type Activity Date Activity User E-Sign Co-Sign Detail Recorded Client Recorded Date Recorded By Document 04/28/20 10:46 HARDIK [id number] 04/28/20 10:49 HARDIK 04/28/20 10:46 Wound Center Nurse 1 [Ulcer Assessment] #4 Right Lat Foot -Current Size (cm) - Length 0.3 -Current Size (cm) - Width 0.6 -Current Size (cm) - Depth 0.1 -Total Square Cm 0.18 -Exudate Amt Small -Exudate Type Serosanguineous -Wound Margin Distinct, Outline Attached -Granulation Amt Medium (34-66%) -Granulation Quality Red -Necrosis Amt Medium (34-66%) -Necrotic Tissue Type Adherent Slough -Texture (Cammie-wound Skin Appearance) Assessed, Scarring -Moisture (Cammie-wound Skin Appearance No Abnormality, ) Assessed -Color (Cammie-wound Skin Appearance) No Abnormality, Assessed -Temperature (Cammie-wound Skin No Abnormality Appearance) (Pt Warm) -Tenderness on Palpation (Cammie-wound No Skin Appearance) -Ulcer Cleansing Rinsed/ Irrigated with Saline -Foul Odor after Cleansing No -Anesthetic Used 4% Lidocaine Solution #3 R Lat LE -Current Size (cm) - Length 5.5 -Current Size (cm) - Width 1.6 -Current Size (cm) - Depth 0.1 -Total Square Cm 8.80 -Exudate Amt Medium -Exudate Type Serosanguineous -Wound Margin Distinct, Outline Attached -Granulation Amt Medium (34-66%) -Granulation Quality Red -Necrosis Amt Medium (34-66%) -Necrotic Tissue Type Adherent Slough -Texture (Cammie-wound Skin Appearance) Assessed, Scarring -Moisture (Cammie-wound Skin Appearance No Abnormality, ) Assessed -Color (Cammie-wound Skin Appearance) No Abnormality, Assessed -Temperature (Cammie-wound Skin No Abnormality Appearance) (Pt Warm) -Tenderness on Palpation (Cammie-wound No Skin Appearance) -Ulcer Cleansing Rinsed/ Irrigated with Saline -Foul Odor after Cleansing No -Anesthetic Used 4% Lidocaine Solution #2 R Hip -Current Size (cm) - Length 2.5 -Current Size (cm) - Width 2.9 -Current Size (cm) - Depth 3.1 -Total Square Cm 7.25 -Exudate Amt Large -Exudate Type Yellow/Green -Wound Margin Distinct, Outline Attached -Granulation Amt Medium (34-66%) -Granulation Quality Red -Necrosis Amt Medium (34-66%) -Necrotic Tissue Type Adherent Slough -Texture (Cammie-wound Skin Appearance) Assessed, Scarring -Moisture (Cammie-wound Skin Appearance No Abnormality, ) Assessed -Color (Cammie-wound Skin Appearance) No Abnormality, Assessed -Temperature (Cammie-wound Skin No Abnormality Appearance) (Pt Warm) -Tenderness on Palpation (Cammie-wound No Skin Appearance) -Ulcer Cleansing soap and water -Foul Odor after Cleansing No -Anesthetic Used 4% Lidocaine Solution #1 R ankle -Current Size (cm) - Length 1.5 -Current Size (cm) - Width 1.5 -Current Size (cm) - Depth 0.2 -Total Square Cm 2.25 -Exudate Amt Small -Exudate Type Serosanguineous -Wound Margin Distinct, Outline Attached -Granulation Amt Medium (34-66%) -Granulation Quality Red -Necrosis Amt Medium (34-66%) -Necrotic Tissue Type Adherent Slough -Texture (Cammie-wound Skin Appearance) Assessed, Scarring -Moisture (Cammie-wound Skin Appearance No Abnormality, ) Assessed -Color (Cammie-wound Skin Appearance) No Abnormality, Assessed -Temperature (Cammie-wound Skin No Abnormality Appearance) (Pt Warm) -Tenderness on Palpation (Cammie-wound No Skin Appearance) -Ulcer Cleansing Rinsed/ Irrigated with Saline -Foul Odor after Cleansing No -Anesthetic Used 4% Lidocaine Solution DELVIS - Nurse 3 - General Ulcer D/C NN Start: 04/21/20 10:36 Freq: Status: Active Protocol: Activity Type Activity Date Activity User E-Sign Co-Sign Detail Recorded Client Recorded Date Recorded By Document 04/28/20 12:01 [facility] [id number] 04/28/20 12:03 [facility] 04/28/20 12:01 Wound Care Nurse 3 [Wound Dressing] #4 Right Lat Foot -Ulcer Cleansing Rinsed/ Irrigated with Saline -Foul Odor after Cleansing No -Primary Dressing Applied Aquacel AG 4x4 -Other Dressing unna boot -Other Covering drsg per k ruminski client support coordinator -Aquacel AG 4x4 1 #3 R Lat LE -Ulcer Cleansing Rinsed/ Irrigated with Saline -Foul Odor after Cleansing No -Primary Dressing Applied Aquacel AG 4x4 -Other Covering unna boot per k ruminski client support coordinator -Aquacel AG 4x4 0 #2 R Hip -Ulcer Cleansing Rinsed/ Irrigated with Saline -Foul Odor after Cleansing No -Negative Pressure Wound Therapy Continue -Setting (mmHg) 150 -Negative Pressure is Continuous -NPWT Application Charge ($) NPWT </= 50 sq cm #1 R ankle -Ulcer Cleansing Rinsed/ Irrigated with Saline Pain Scale: 0-10 Numeric [Pain] -Is Patient Pain Free? Yes WC - Visit Discharge [Visit Discharge Information] -Discharge Condition Stable -Ambulatory Status Wheelchair -Transportation Private Auto -Accompanied by gr son [Facility Notification] -Facility Type Home Health Musculoskeletal: Muscle Wasting Psych/Mental Status: Normal Affect, Appropriate Debridement Note Post-Debridement Measurements/Treatment DELVIS - Nurse 2 - General Ulcer CM Notes Start: 04/21/20 10:36 Freq: Status: Active Protocol: Activity Type Activity Date Activity User E-Sign Co-Sign Detail Recorded Client Recorded Date Recorded By Document 04/21/20 13:26 PL [id number] 04/21/20 13:31 PL 04/21/20 13:26 Wound Center Nurse 2 #4 Right Lat Foot -Time 10:58 -Correct Patient Yes -Correct Side, Site, Position Yes -Correct Procedure Yes -Procedure Performed Yes -Type of Procedure Debridement -Clinical Debridement Subcutaneous -Tissue Removed Subcutaneous -Post Debridement (cm) - Length 0.5 -Post Debridement (cm) - Width 0.9 -Post Debridement (cm) - Depth 0.2 -Total Square (Post) (cm) 0.45 -Area of Debridement (cm) - Length 0.5 -Area of Debridement (cm) - Width 0.9 -Total Square (Area) (cm) 0.45 -Tunneling No -Undermining/Tunneling No -Circular Undermining No -Wound/Ulcer Outcome Not Healed -Ulcer Cleansing Rinsed/ Irrigated with Saline -Foul Odor after Cleansing No -Bioengineered Tissue No -Bleeding Controlled with Pressure -Treatment Response Procedure Tolerated Well -Debridement - Subq, 1st 20sq cm No #3 R Lat LE -Time 10:58 -Correct Patient Yes -Correct Side, Site, Position Yes -Correct Procedure Yes -Procedure Performed Yes -Type of Procedure Debridement -Clinical Debridement Subcutaneous -Tissue Removed Subcutaneous -Post Debridement (cm) - Length 4.9 -Post Debridement (cm) - Width 3.5 -Post Debridement (cm) - Depth 0.1 -Total Square (Post) (cm) 17.15 -Area of Debridement (cm) - Length 4.9 -Area of Debridement (cm) - Width 3.5 -Total Square (Area) (cm) 17.15 -Tunneling No -Undermining/Tunneling No -Circular Undermining No -Wound/Ulcer Outcome Not Healed -Ulcer Cleansing Rinsed/ Irrigated with Saline -Foul Odor after Cleansing No -Bioengineered Tissue No -Debridement - Subq, 1st 20sq cm Yes #2 R Hip -Time 10:58 -Correct Patient Yes -Correct Side, Site, Position Yes -Correct Procedure Yes -Procedure Performed Yes -Type of Procedure Debridement -Clinical Debridement Muscle / Fascia -Tissue Removed Muscle -Post Debridement (cm) - Length 3.0 -Post Debridement (cm) - Width 4.0 -Post Debridement (cm) - Depth 3.8 -Total Square (Post) (cm) 12.00 -Area of Debridement (cm) - Length 3.0 -Area of Debridement (cm) - Width 4.0 -Total Square (Area) (cm) 12.00 -Tunneling No -Undermining/Tunneling No -Circular Undermining No -Wound/Ulcer Outcome Not Healed -Ulcer Cleansing Rinsed/ Irrigated with Saline -Foul Odor after Cleansing No -Bioengineered Tissue No -Debridement - Muscle / Fascia, 1st Yes 20sq cm #1 R ankle -Time 10:58 -Correct Patient Yes -Correct Side, Site, Position Yes -Correct Procedure Yes -Procedure Performed Yes -Type of Procedure Debridement -Clinical Debridement Subcutaneous -Tissue Removed Subcutaneous -Post Debridement (cm) - Length 1.9 -Post Debridement (cm) - Width 2.0 -Post Debridement (cm) - Depth 0.3 -Total Square (Post) (cm) 3.80 -Area of Debridement (cm) - Length 1.9 -Area of Debridement (cm) - Width 2.0 -Total Square (Area) (cm) 3.80 -Tunneling No -Undermining/Tunneling No -Circular Undermining No -Wound/Ulcer Outcome Not Healed -Ulcer Cleansing Rinsed/ Irrigated with Saline -Foul Odor after Cleansing No -Bioengineered Tissue No -Debridement - Subq, 1st 20sq cm No Pain Scale: 0-10 Numeric Is Patient Pain Free? Yes WC - Nurse 3 - General Ulcer D/C NN Start: 04/21/20 10:36 Freq: Status: Active Protocol: Activity Type Activity Date Activity User E-Sign Co-Sign Detail Recorded Client Recorded Date Recorded By Document 04/21/20 11:22 [facility] [id number] 04/21/20 11:25 MS Document 04/28/20 12:01 [facility] [id number] 04/28/20 12:03 [facility] 04/21/20 04/28/20 11:22 12:01 Wound Care Nurse 3 #4 Right Lat Foot -Ulcer Cleansing Rinsed/ Rinsed/ Irrigated with Irrigated with Saline Saline -Foul Odor after Cleansing No No -Primary Dressing Applied Aquacel AG 4x4 -Other Dressing hydrogel,abd unna boot -Primary Dressing Covered/Secured with Dry Gauze, Secured with Tape -Other Covering drsg per bailee william lpn -Aquacel AG 4x4 1 #3 R Lat LE -Ulcer Cleansing Rinsed/ Rinsed/ Irrigated with Irrigated with Saline Saline -Foul Odor after Cleansing No -Primary Dressing Applied Aquacel AG 4x4 -Other Dressing hydrogel,abd -Primary Dressing Covered/Secured with Dry Gauze, Secured with Tape -Other Covering unna boot ryne bailee nidhinichole client support coordinator -Aquacel AG 4x4 0 #2 R Hip -Ulcer Cleansing Rinsed/ Rinsed/ Irrigated with Irrigated with Saline Saline -Foul Odor after Cleansing No No -Negative Pressure Wound Therapy Continue Continue -Setting (mmHg) 150 150 -Negative Pressure is Continuous Continuous -NPWT Application Charge ($) NPWT </= 50 sq NPWT </= 50 sq cm cm #1 R ankle -Ulcer Cleansing Rinsed/ Rinsed/ Irrigated with Irrigated with Saline Saline -Other Dressing hydrogel,abd -Primary Dressing Covered/Secured with Dry Gauze, Secured with Tape Pain Scale: 0-10 Numeric Is Patient Pain Free? Yes Yes WC - Visit Discharge Discharge Condition Stable Stable Ambulatory Status Wheelchair Wheelchair Transportation Private Auto Accompanied by gr son Clinical Summary of Care Provided Yes Facility Type Home Health Wound debrided: Right foot ulcer Laterality: Right Wound Grade/Stage: Mendez 1 Type of Debridement: Excisional debridement Anesthesia Used: 4% Lidocaine Solution Depth: in the subcutaneous layer Percentage of wound debrided: 100 Instrument Used: 3mm curette Tissue Removed: Slough and devitalized tissue Severity: Fat Layer Exposed Amount of bleeding with debridement: Mild Bleeding Controlled with: Pressure Patient tolerated procedure well - Additional Wound Wound debrided: Right ankle ulcer Laterality: Right Wound Grade/Stage: Mendez 1 Type of Debridement: Excisional debridement Anesthesia Used: 4% Lidocaine Solution Depth: in the subcutaneous layer Percentage of wound debrided: 100 Instrument Used: 3mm curette Tissue Removed: Slough and devitalized tissue Severity: Fat Layer Exposed Amount of bleeding with debridement: Mild Bleeding Controlled with: Pressure Patient tolerated procedure: Patient tolerated procedure well - Additional Wound Wound debrided: Right lateral leg ulcer Laterality: Right Wound Grade/Stage: Stage II Type of Debridement: Excisional debridement Anesthesia Used: 4% Lidocaine Solution, Cetacaine Depth: in the subcutaneous layer Percentage of wound debrided: 100 Instrument Used: 7mm curette Tissue Removed: Slough and devitalized tissue Severity: Fat Layer Exposed Amount of bleeding with debridement: Mild Bleeding Controlled with: Pressure Patient tolerated procedure: Patient did not tolerate procedure well - Additional Wound Wound debrided: Right hip ulcer Laterality: Right Wound Grade/Stage: Stage IV Type of Debridement: Excisional debridement Anesthesia Used: 4% Lidocaine Solution, Cetacaine Depth: in the subcutaneous layer, to muscle Percentage of wound debrided: 100 Instrument Used: 7mm curette Tissue Removed: Slough and devitalized tissue Severity: Fat Layer Exposed Amount of bleeding with debridement: Mild Bleeding Controlled with: Pressure Patient tolerated procedure: Patient tolerated procedure well Assessment/Plan Active Problems 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 Wound VAC applied to the right hip at 150 mmHg negative pressure. Aquacel Ag dressing applied to the right lateral leg, right ankle, and right foot. ABIs performed today in clinic were normal. Unna boots applied to bilateral lower extremities. These are to be removed on Friday when the home health nurse arrives. Upon removal of the Unna boots, bilateral legs should be washed thoroughly with antibacterial soap and water and a new Aquacel dressing should be applied to the right lateral leg, right ankle, and right foot ulcers. New Unna boots should be applied. If there is any concern regarding Unna boots, or the patient's erythema and swelling of bilateral lower extremities, the nurse is to contact the wound healing center or patient should report to the emergency department. 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 At home wound-care instructions: The patient is to keep Unna boots clean and dry. If he notices numbness/tingling of the toes or discoloration of the toes, he is to contact the wound healing center or report to the emergency department. The patient's right hip wound VAC is to be changed 3 times weekly. Off-loading: Avoid pressure at ulcer sites. Avoid prolonged standing or dangling of the legs. When seated, keep feet elevated at chest level. If Unna boots begin to feel tight, elevate the feet. A Roho cushion was ordered for the patient to use when utilizing his wheelchair. He was instructed on appropriate offloading when seated/lying down. Frequent position changes were encouraged. Diet: Patient encouraged to increase protein and vitamin C intake while taking caution to avoid high carbohydrate and/or sugar intake. Labs/cultures/imaging: He completed a course of doxycycline on 04/11/2020. Patient's right hip culture from 04/07/2020 was positive for 1+ MRSA (susceptible to Bactrim), and he was started on Bactrim by his PCP on 04/11/20. Patient's right lower leg culture from 04/14/2020 was positive for rare MRSA (susceptible to Bactrim). Bactrim was continued. In the past 2 weeks, the patient developed right lower extremity erythema, warmth, and swelling which spread to the left lower extremity as well. At last week's appointment, Bactrim was discontinued and he was started on Clindamycin 450mg PO TID x 10 days. (Cultures showed susceptibility to clindamycin, and negative for inducible clindamycin resistance.) Since initiation of clindamycin, the patient and his caregiver report significant improvement in the erythema and edema of his bilateral lower extremities. Clindamycin will be continued for another 7 days. Due to clinical signs of infection, new cultures were collected from the right hip today. The patient will be notified if a change in antibiotics is warranted. Patient believes he had a right hip x-ray at [facility]. Records will be requested. Routine baseline labwork (CRP, CMP, CBC D, ESR, prealbumin) was significant for the following: CRP 10.1 (H), glucose 123 (H), normal serum creatinine, estimated GFR 81.4, ESR 103 (H), RBC 3.46 (L), hemoglobin 10.5 (L), hematocrit 31.2 (L). ABIs were done in office today and were normal. Follow-up: Return to clinic in 1 week for re-evaluation. Return sooner or report to the emergency room should symptoms worsen, or new symptoms arise. Note: [employer] speech recognition lathe puller software was used to create portions of this document. Sound-alike and misspelled words, as well as other lathe puller errors may be contained in the documentation. [id number]: [id number] Berna musc/fascia 20 sq cm/< - [id number] + [id number] (separate wounds)
[2020-04-28 14:34] VITALS: BMI 20.8
[2020-05-05 10:30] VITALS: BP 132/53; PULSE 69; TEMP 35.8; BMI 20.8
--- NOTE | 2020-05-05 14:19 | PCM.WC.PN ---
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 Code(s): E11.622 - Type 2 diabetes mellitus with other skin ulcer; L97.319 - Non-pressure chronic ulcer of right ankle with unspecified severity (3) Diabetic ulcer of right foot Status: Chronic Code(s): E11.621 - Type 2 diabetes mellitus with foot ulcer; L97.519 - Non-pressure chronic ulcer of other part of right foot with unspecified severity (4) Decubitus ulcer of right hip, stage 4 Status: Chronic Code(s): L89.214 - Pressure ulcer of right hip, stage 4 (5) Cellulitis of right lower extremity Status: Acute Code(s): L03.115 - Cellulitis of right lower limb (6) Diabetes mellitus type 2 in nonobese Status: Chronic Code(s): E11.9 - Type 2 diabetes mellitus without complications (7) Alcoholism Status: Chronic Code(s): F10.20 - Alcohol dependence, uncomplicated (8) Bipolar disorder Status: Chronic Code(s): F31.9 - Bipolar disorder, unspecified (9) Hyperlipidemia Status: Chronic Code(s): E78.5 - Hyperlipidemia, unspecified (10) Hypertension Status: Chronic Code(s): I10 - Essential (primary) hypertension Type of Wound Date of Service: 05/05/20 Chief Complaint: Ulcers of right foot, right ankle, right lateral leg, and right hip History of Wound: The patient presents to the wound healing center today, 04/07/2020, for an initial evaluation of right lower extremity ulcers of the foot, ankle, lateral leg and hip. He has a past medical history significant for type 2 diabetes mellitus, hypertension, hyperlipidemia, anemia, tobacco use and alcoholism. He states he has been sober for about 4 months. He no longer takes Metformin, and states this was discontinued due to causing renal insufficiency. He states his diabetes is currently managed with diet and exercise, though he has been not unable to exercise in recent months. He states that in December he suffered a fall and laid on the ground for 5 days, during which time he developed these ulcers. He reports subsequent impaired movement and sensation of his right lower extremity from the mid lower leg to his toes. He was admitted to a longterm following hospitalization, and was receiving wound debridement approximately every 2 weeks. Santyl was used on the ulcers of his right lower leg, ankle and foot. A wound VAC was used for his right hip ulcer. He was discharged from the longterm on 04/03/2020, at which time the wound VAC was discontinued. Since 04/03/2020, the patient has been using wet to dry gauze dressings to the right hip daily. He is receiving home health care from [facility]. He reports he is able to ambulate with the use of a walker, and also uses a wheelchair at times. He denies any fever or chills. He states there was a concern for infection in his right lateral leg ulcer, and he was started on doxycycline, which he is currently taking. He reports occasional nausea, but denies vomiting or diarrhea. He also reports a decreased appetite. He denies any recent copious, purulent, or foul-smelling drainage from his ulcers. Progress of Wound: The patient has been using wound VAC to his right hip ulcer, and is tolerating this well. His right hip ulcer has decreased in size this week. There is no foul-smelling drainage from his right hip ulcer today. He has been using Aquacel Ag to the ulcers of his right leg. He denies any foul-smelling drainage from these ulcers. He reports the erythema and swelling of his bilateral lower extremities improved with the use of clindamycin and Unna boots. The patient denies any fever or chills. He completed a course of doxycycline on 04/11/2020. Patient's right hip culture from 04/07/2020 was positive for 1+ MRSA (susceptible to Bactrim), and he was started on Bactrim by his PCP on 04/11/20. Patient's right lower leg culture from 04/14/2020 was positive for rare MRSA (susceptible to Bactrim). Bactrim was continued. He then developed right lower extremity erythema, warmth, and swelling which spread to the left lower extremity as well. At last week's appointment, Bactrim was discontinued and he was started on Clindamycin 450mg PO TID x 10 days. (Cultures showed susceptibility to clindamycin, and negative for inducible clindamycin resistance.) Since initiation of clindamycin, the patient and his caregiver report significant improvement in the erythema and edema of his bilateral lower extremities. A wound culture collected last week revealed 3+ stenotrophomonas maltophilia susceptible to levofloxacin and Bactrim. Anaerobic studies are pending. - Physical Exam Vital Signs Temp Pulse Resp BP 96.4 F L 69 16 132/53 H 05/05/20 10:30 05/05/20 10:30 04/17/20 00:38 05/05/20 10:30 General: Alert, Cooperative, No apparent distress Oral: Moist Mucosa Neck: Supple Lungs: Normal air movement Extremities: No clubbing, No cyanosis, Capillary Refill Less than 3 Seconds, Edema - 2+ pitting edema of bilateral lower extremities, Peripheral Pulses Normal Skin: Ulcer/ Wound - Stage IV R hip ulcer, does not probe to bone, undermining present. No malodorous drainage. Size improved. Ulcers of R lateral leg, R foot, and R ankle with subcu layers exposed. Small to moderate amounts of slough present. No purulent/malodorous drainage., Rash Present - Cellulitic rash of right lower extremity from knee to foot has improved. Wound Measurements and Assessment WC - Nurse 1 - General Ulcer Measurement Start: 04/21/20 10:36 Freq: Status: Active Protocol: Activity Type Activity Date Activity User E-Sign Co-Sign Detail Recorded Client Recorded Date Recorded By Document 05/05/20 10:30 [email or web address] [id number] 05/05/20 10:38 HARDIK 05/05/20 10:30 Wound Center Nurse 1 [Ulcer Assessment] #4 Right Lat Foot -Current Size (cm) - Length 0.4 -Current Size (cm) - Width 0.7 -Current Size (cm) - Depth 0.2 -Total Square Cm 0.28 -Exudate Amt Medium -Exudate Type Serosanguineous -Wound Margin Distinct, Outline Attached -Granulation Amt Medium (34-66%) -Granulation Quality Red -Necrosis Amt Medium (34-66%) -Necrotic Tissue Type Adherent Slough -Texture (Cammie-wound Skin Appearance) Assessed, Scarring -Moisture (Cammie-wound Skin Appearance No Abnormality, ) Assessed -Color (Cammie-wound Skin Appearance) No Abnormality, Assessed -Temperature (Cammie-wound Skin No Abnormality Appearance) (Pt Warm) -Tenderness on Palpation (Cammie-wound No Skin Appearance) -Ulcer Cleansing Rinsed/ Irrigated with Saline -Foul Odor after Cleansing No -Anesthetic Used 4% Lidocaine Solution #3 R Lat LE -Current Size (cm) - Length 5.5 -Current Size (cm) - Width 2.7 -Current Size (cm) - Depth 0.2 -Total Square Cm 14.85 -Exudate Amt Medium -Exudate Type Serosanguineous -Wound Margin Distinct, Outline Attached -Granulation Amt Medium (34-66%) -Granulation Quality Red -Necrosis Amt Medium (34-66%) -Necrotic Tissue Type Adherent Slough -Texture (Cammie-wound Skin Appearance) Assessed, Scarring -Moisture (Cammie-wound Skin Appearance No Abnormality, ) Assessed -Color (Cammie-wound Skin Appearance) No Abnormality, Assessed -Temperature (Cammie-wound Skin No Abnormality Appearance) (Pt Warm) -Tenderness on Palpation (Cammie-wound No Skin Appearance) -Ulcer Cleansing Rinsed/ Irrigated with Saline -Foul Odor after Cleansing No -Anesthetic Used 4% Lidocaine Solution #2 R Hip -Current Size (cm) - Length 2 -Current Size (cm) - Width 2.6 -Current Size (cm) - Depth 4.4 -Total Square Cm 5.2 -Exudate Amt Large -Exudate Type Yellow/Green -Wound Margin Distinct, Outline Attached -Granulation Amt Medium (34-66%) -Granulation Quality Red -Necrosis Amt Medium (34-66%) -Necrotic Tissue Type Adherent Slough -Texture (Cammie-wound Skin Appearance) Assessed, Scarring -Moisture (Cammie-wound Skin Appearance No Abnormality, ) Assessed -Color (Cammie-wound Skin Appearance) No Abnormality, Assessed -Temperature (Cammie-wound Skin No Abnormality Appearance) (Pt Warm) -Tenderness on Palpation (Cammie-wound No Skin Appearance) -Ulcer Cleansing Rinsed/ Irrigated with Saline -Foul Odor after Cleansing No -Anesthetic Used 4% Lidocaine Solution #1 R ankle -Current Size (cm) - Length 1.6 -Current Size (cm) - Width 1.3 -Current Size (cm) - Depth 0.3 -Total Square Cm 2.08 -Exudate Amt Medium -Exudate Type Serosanguineous -Wound Margin Distinct, Outline Attached -Granulation Amt Medium (34-66%) -Granulation Quality Red -Necrosis Amt Medium (34-66%) -Necrotic Tissue Type Adherent Slough -Texture (Cammie-wound Skin Appearance) Assessed, Scarring -Moisture (Cammie-wound Skin Appearance No Abnormality, ) Assessed -Color (Cammie-wound Skin Appearance) No Abnormality, Assessed -Temperature (Cammie-wound Skin No Abnormality Appearance) (Pt Warm) -Tenderness on Palpation (Cammie-wound No Skin Appearance) -Ulcer Cleansing soap and water -Foul Odor after Cleansing No -Anesthetic Used 4% Lidocaine Solution WC - Nurse 2 - General Ulcer CM Notes Start: 04/21/20 10:36 Freq: Status: Active Protocol: Activity Type Activity Date Activity User E-Sign Co-Sign Detail Recorded Client Recorded Date Recorded By Document 05/05/20 14:08 PL [id number] 05/05/20 14:13 PL 05/05/20 14:08 Wound Center Nurse 2 [Procedure/Treatment] #4 Right Lat Foot -Time 10:50 -Correct Patient Yes -Correct Side, Site, Position Yes -Correct Procedure Yes -Procedure Performed Yes -Type of Procedure Debridement -Clinical Debridement Subcutaneous -Tissue Removed Subcutaneous -Post Debridement (cm) - Length 0.6 -Post Debridement (cm) - Width 0.9 -Post Debridement (cm) - Depth 0.1 -Total Square (Post) (cm) 0.54 -Area of Debridement (cm) - Length 0.6 -Area of Debridement (cm) - Width 0.9 -Total Square (Area) (cm) 0.54 -Tunneling No -Undermining/Tunneling No -Circular Undermining No -Wound/Ulcer Outcome Not Healed -Ulcer Cleansing Rinsed/ Irrigated with Saline -Foul Odor after Cleansing No -Bioengineered Tissue No -Debridement - Subq, 1st 20sq cm No #3 R Lat LE -Time 10:50 -Correct Patient Yes -Correct Side, Site, Position Yes -Correct Procedure Yes -Procedure Performed Yes -Type of Procedure Debridement -Clinical Debridement Subcutaneous -Tissue Removed Subcutaneous -Post Debridement (cm) - Length 5.5 -Post Debridement (cm) - Width 2.8 -Post Debridement (cm) - Depth 0.1 -Total Square (Post) (cm) 15.40 -Area of Debridement (cm) - Length 5.5 -Area of Debridement (cm) - Width 2.8 -Total Square (Area) (cm) 15.40 -Tunneling No -Undermining/Tunneling No -Circular Undermining No -Wound/Ulcer Outcome Not Healed -Ulcer Cleansing Rinsed/ Irrigated with Saline -Foul Odor after Cleansing No -Bioengineered Tissue No -Debridement - Subq, 1st 20sq cm No #2 R Hip -Time 10:50 -Correct Patient Yes -Correct Side, Site, Position Yes -Correct Procedure Yes -Procedure Performed Yes -Type of Procedure Debridement -Clinical Debridement Muscle / Fascia -Tissue Removed Subcutaneous, Muscle -Post Debridement (cm) - Length 2.3 -Post Debridement (cm) - Width 2.8 -Post Debridement (cm) - Depth 3.9 -Total Square (Post) (cm) 6.44 -Area of Debridement (cm) - Length 2.3 -Area of Debridement (cm) - Width 2.8 -Total Square (Area) (cm) 6.44 -Tunneling No -Undermining/Tunneling Yes -Undermining/Tunneling Starts (O' 1 clock) -Undermining/Tunneling Ends (O'clock) 4 -Maximum Distance (cm) 3.5 -Circular Undermining No -Wound/Ulcer Outcome Not Healed -Ulcer Cleansing Rinsed/ Irrigated with Saline -Foul Odor after Cleansing No -Bioengineered Tissue No -Debridement - Subq, 1st 20sq cm No -Debridement - Muscle / Fascia, 1st Yes 20sq cm #1 R ankle -Time 10:50 -Correct Patient Yes -Correct Side, Site, Position Yes -Correct Procedure Yes -Procedure Performed Yes -Type of Procedure Debridement -Clinical Debridement Subcutaneous -Tissue Removed Subcutaneous -Post Debridement (cm) - Length 1.5 -Post Debridement (cm) - Width 1.7 -Post Debridement (cm) - Depth 0.3 -Total Square (Post) (cm) 2.55 -Area of Debridement (cm) - Length 1.5 -Area of Debridement (cm) - Width 1.7 -Total Square (Area) (cm) 2.55 -Tunneling No -Undermining/Tunneling No -Circular Undermining No -Wound/Ulcer Outcome Not Healed -Ulcer Cleansing Rinsed/ Irrigated with Saline -Foul Odor after Cleansing No -Bioengineered Tissue No -Debridement - Subq, 1st 20sq cm Yes [See Physician Procedure note for Specifics] Pain Scale: 0-10 Numeric [Pain] -Is Patient Pain Free? Yes - Nurse 3 - General Ulcer D/C NN Start: 04/21/20 10:36 Freq: Status: Active Protocol: Activity Type Activity Date Activity User E-Sign Co-Sign Detail Recorded Client Recorded Date Recorded By Document 05/05/20 11:40 [id number] 05/05/20 11:41 05/05/20 11:40 Wound Care Nurse 3 [Wound Dressing] #4 Right Lat Foot -Ulcer Cleansing Rinsed/ Irrigated with Saline -Foul Odor after Cleansing No -Primary Dressing Applied Aquacel Extra -Other Dressing drysorb -Aquacel Extra 1 #3 R Lat LE -Ulcer Cleansing Rinsed/ Irrigated with Saline -Foul Odor after Cleansing No -Primary Dressing Applied Aquacel Extra -Other Dressing drysorb -Aquacel Extra 0 #2 R Hip -Ulcer Cleansing Rinsed/ Irrigated with Saline -Foul Odor after Cleansing No -Primary Dressing Applied Aquacel Extra -Other Dressing drysorb -Aquacel Extra 0 #1 R ankle -Ulcer Cleansing Rinsed/ Irrigated with Saline -Foul Odor after Cleansing No -Negative Pressure Wound Therapy Continue -Setting (mmHg) 150 -Negative Pressure is Continuous -NPWT Application Charge ($) NPWT </= 50 sq cm [Compression Applied] Right -Multi-Layered Wrap Application Unna Boot - Right ($) -Compression Wrap Unna Boot ($) ( single) Left -Multi-Layered Wrap Application Unna Boot - Left ($) -Compression Wrap Unna Boot ($) ( single) Pain Scale: 0-10 Numeric [Pain] -Is Patient Pain Free? Yes - Visit Discharge [Visit Discharge Information] -Discharge Condition Stable -Ambulatory Status Wheelchair -Transportation Private Auto -Accompanied by grandson -Medication Reconcilliation completed Yes & provided to patient/care provider -Clinical Summary of Care Provided Yes Musculoskeletal: Muscle Wasting Psych/Mental Status: Normal Affect, Appropriate Debridement Note Post-Debridement Measurements/Treatment - Nurse 2 - General Ulcer CM Notes Start: 04/21/20 10:36 Freq: Status: Active Protocol: Activity Type Activity Date Activity User E-Sign Co-Sign Detail Recorded Client Recorded Date Recorded By Document 04/21/20 13:26 PL [id number] 04/21/20 13:31 PL Document 04/28/20 14:28 PL [id number] 04/28/20 14:33 PL Document 05/05/20 14:08 PL [id number] 05/05/20 14:13 PL 04/21/20 04/28/20 05/05/20 13:26 14:28 14:08 Wound Center Nurse 2 #4 Right Lat Foot -Time 10:58 10:56 10:50 -Correct Patient Yes Yes Yes -Correct Side, Site, Position Yes Yes Yes -Correct Procedure Yes Yes Yes -Procedure Performed Yes Yes Yes -Type of Procedure Debridement Debridement Debridement -Clinical Debridement Subcutaneous Subcutaneous Subcutaneous -Tissue Removed Subcutaneous Subcutaneous Subcutaneous -Post Debridement (cm) - Length 0.5 0.5 0.6 -Post Debridement (cm) - Width 0.9 0.8 0.9 -Post Debridement (cm) - Depth 0.2 0.1 0.1 -Total Square (Post) (cm) 0.45 0.40 0.54 -Area of Debridement (cm) - Length 0.5 0.5 0.6 -Area of Debridement (cm) - Width 0.9 0.8 0.9 -Total Square (Area) (cm) 0.45 0.40 0.54 -Tunneling No No No -Undermining/Tunneling No No No -Circular Undermining No No No -Wound/Ulcer Outcome Not Healed Not Healed Not Healed -Ulcer Cleansing Rinsed/ Rinsed/ Rinsed/ Irrigated with Irrigated with Irrigated with Saline Saline Saline -Foul Odor after Cleansing No No No -Bioengineered Tissue No No No -Bleeding Controlled with Pressure -Treatment Response Procedure Tolerated Well -Debridement - Subq, 1st 20sq cm No Yes No #3 R Lat LE -Time 10:58 10:56 10:50 -Correct Patient Yes Yes Yes -Correct Side, Site, Position Yes Yes Yes -Correct Procedure Yes Yes Yes -Procedure Performed Yes Yes Yes -Type of Procedure Debridement Debridement Debridement -Clinical Debridement Subcutaneous Subcutaneous Subcutaneous -Tissue Removed Subcutaneous Subcutaneous Subcutaneous -Post Debridement (cm) - Length 4.9 4.9 5.5 -Post Debridement (cm) - Width 3.5 3.0 2.8 -Post Debridement (cm) - Depth 0.1 0.1 0.1 -Total Square (Post) (cm) 17.15 14.70 15.40 -Area of Debridement (cm) - Length 4.9 4.9 5.5 -Area of Debridement (cm) - Width 3.5 3.0 2.8 -Total Square (Area) (cm) 17.15 14.70 15.40 -Tunneling No No No -Undermining/Tunneling No No No -Circular Undermining No No No -Wound/Ulcer Outcome Not Healed Not Healed Not Healed -Ulcer Cleansing Rinsed/ Rinsed/ Rinsed/ Irrigated with Irrigated with Irrigated with Saline Saline Saline -Foul Odor after Cleansing No No No -Bioengineered Tissue No No No -Debridement - Subq, 1st 20sq cm Yes No No #2 R Hip -Time 10:58 10:56 10:50 -Correct Patient Yes Yes Yes -Correct Side, Site, Position Yes Yes Yes -Correct Procedure Yes Yes Yes -Procedure Performed Yes Yes Yes -Type of Procedure Debridement Debridement Debridement -Clinical Debridement Muscle / Fascia Muscle / Fascia Muscle / Fascia -Tissue Removed Muscle Subcutaneous, Subcutaneous, Muscle Muscle -Post Debridement (cm) - Length 3.0 2.8 2.3 -Post Debridement (cm) - Width 4.0 3.0 2.8 -Post Debridement (cm) - Depth 3.8 4.3 3.9 -Total Square (Post) (cm) 12.00 8.40 6.44 -Area of Debridement (cm) - Length 3.0 2.8 2.3 -Area of Debridement (cm) - Width 4.0 3.0 2.8 -Total Square (Area) (cm) 12.00 8.40 6.44 -Tunneling No No No -Undermining/Tunneling No Yes Yes -Undermining/Tunneling Starts (O'clock 10 1 ) -Undermining/Tunneling Ends (O'clock) 2 4 -Maximum Distance (cm) 4.0 3.5 -Circular Undermining No No No -Wound/Ulcer Outcome Not Healed Not Healed Not Healed -Ulcer Cleansing Rinsed/ Rinsed/ Rinsed/ Irrigated with Irrigated with Irrigated with Saline Saline Saline -Foul Odor after Cleansing No No No -Bioengineered Tissue No No No -Debridement - Subq, 1st 20sq cm No -Debridement - Muscle / Fascia, 1st Yes Yes Yes 20sq cm #1 R ankle -Time 10:58 10:56 10:50 -Correct Patient Yes Yes Yes -Correct Side, Site, Position Yes Yes Yes -Correct Procedure Yes Yes Yes -Procedure Performed Yes Yes Yes -Type of Procedure Debridement Debridement Debridement -Clinical Debridement Subcutaneous Subcutaneous Subcutaneous -Tissue Removed Subcutaneous Subcutaneous Subcutaneous -Post Debridement (cm) - Length 1.9 1.9 1.5 -Post Debridement (cm) - Width 2.0 1.8 1.7 -Post Debridement (cm) - Depth 0.3 0.3 0.3 -Total Square (Post) (cm) 3.80 3.42 2.55 -Area of Debridement (cm) - Length 1.9 1.9 1.5 -Area of Debridement (cm) - Width 2.0 1.8 1.7 -Total Square (Area) (cm) 3.80 3.42 2.55 -Tunneling No No No -Undermining/Tunneling No No No -Circular Undermining No No No -Wound/Ulcer Outcome Not Healed Not Healed Not Healed -Ulcer Cleansing Rinsed/ Rinsed/ Rinsed/ Irrigated with Irrigated with Irrigated with Saline Saline Saline -Foul Odor after Cleansing No No No -Bioengineered Tissue No No No -Debridement - Subq, 1st 20sq cm No No Yes Pain Scale: 0-10 Numeric Is Patient Pain Free? Yes Yes Yes WC - Nurse 3 - General Ulcer D/C NN Start: 04/21/20 10:36 Freq: Status: Active Protocol: Activity Type Activity Date Activity User E-Sign Co-Sign Detail Recorded Client Recorded Date Recorded By Document 04/21/20 11:22 [place] [id number] 04/21/20 11:25 MS Document 04/28/20 12:01 [facility] [id number] 04/28/20 12:03 [facility] Document 05/05/20 11:40 [id number] 05/05/20 11:41 04/21/20 04/28/20 05/05/20 11:22 12:01 11:40 Wound Care Nurse 3 #4 Right Lat Foot -Ulcer Cleansing Rinsed/ Rinsed/ Rinsed/ Irrigated with Irrigated with Irrigated with Saline Saline Saline -Foul Odor after Cleansing No No No -Primary Dressing Applied Aquacel AG 4x4 Aquacel Extra -Other Dressing hydrogel,abd unna boot drysorb -Primary Dressing Covered/Secured with Dry Gauze, Secured with Tape -Other Covering drsg per bailee william lpn -Aquacel Extra 1 -Aquacel AG 4x4 1 #3 R Lat LE -Ulcer Cleansing Rinsed/ Rinsed/ Rinsed/ Irrigated with Irrigated with Irrigated with Saline Saline Saline -Foul Odor after Cleansing No No -Primary Dressing Applied Aquacel AG 4x4 Aquacel Extra -Other Dressing hydrogel,abd drysorb -Primary Dressing Covered/Secured with Dry Gauze, Secured with Tape -Other Covering unna boot per k ruminski 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 -Aquacel Extra 0 -Aquacel AG 4x4 0 #2 R Hip -Ulcer Cleansing Rinsed/ Rinsed/ Rinsed/ Irrigated with Irrigated with Irrigated with Saline Saline Saline -Foul Odor after Cleansing No No No -Negative Pressure Wound Therapy Continue Continue -Setting (mmHg) 150 150 -Negative Pressure is Continuous Continuous -Primary Dressing Applied Aquacel Extra -Other Dressing drysorb -NPWT Application Charge ($) NPWT </= 50 sq NPWT </= 50 sq cm cm -Aquacel Extra 0 #1 R ankle -Ulcer Cleansing Rinsed/ Rinsed/ Rinsed/ Irrigated with Irrigated with Irrigated with Saline Saline Saline -Foul Odor after Cleansing No -Negative Pressure Wound Therapy Continue -Setting (mmHg) 150 -Negative Pressure is Continuous -Other Dressing hydrogel,abd -Primary Dressing Covered/Secured with Dry Gauze, Secured with Tape -NPWT Application Charge ($) NPWT </= 50 sq cm Right -Multi-Layered Wrap Application Unna Boot - Right ($) -Compression Wrap Unna Boot ($) ( single) Left -Multi-Layered Wrap Application Unna Boot - Left ($) -Compression Wrap Unna Boot ($) ( single) Pain Scale: 0-10 Numeric Is Patient Pain Free? Yes Yes Yes WC - Visit Discharge Discharge Condition Stable Stable Stable Ambulatory Status Wheelchair Wheelchair Wheelchair Transportation Private Auto Private Auto Accompanied by tara hartman Medication Reconcilliation completed & Yes provided to patient/care provider Clinical Summary of Care Provided Yes Yes Facility Type Home Health Wound debrided: Mendez 1 Laterality: Right Wound Grade/Stage: Right foot ulcer Type of Debridement: Excisional debridement Anesthesia Used: 4% Lidocaine Solution Depth: in the subcutaneous layer Percentage of wound debrided: 100 Instrument Used: 3mm curette Tissue Removed: Slough and devitalized tissue Severity: Fat Layer Exposed Amount of bleeding with debridement: Mild Bleeding Controlled with: Pressure Patient tolerated procedure well - Additional Wound Wound debrided: Right ankle ulcer Laterality: Right Wound Grade/Stage: Mendez 1 Type of Debridement: Excisional debridement Anesthesia Used: 4% Lidocaine Solution, Cetacaine Depth: in the subcutaneous layer Percentage of wound debrided: 100 Instrument Used: 5mm curette Tissue Removed: Slough and devitalized tissue Severity: Fat Layer Exposed Amount of bleeding with debridement: Mild Bleeding Controlled with: Pressure Patient tolerated procedure: Patient tolerated procedure well - Additional Wound Wound debrided: Right lateral leg ulcer Laterality: Right Wound Grade/Stage: Stage II Type of Debridement: Excisional debridement Anesthesia Used: 4% Lidocaine Solution, Cetacaine Depth: in the subcutaneous layer Percentage of wound debrided: 100 Instrument Used: 7mm curette Tissue Removed: Slough and devitalized tissue Severity: Fat Layer Exposed Amount of bleeding with debridement: Mild Bleeding Controlled with: Pressure Patient tolerated procedure: Patient tolerated procedure well - Additional Wound Wound debrided: Right hip ulcer Laterality: Right Wound Grade/Stage: Stage IV Type of Debridement: Excisional debridement Anesthesia Used: 4% Lidocaine Solution, Cetacaine Depth: in the subcutaneous layer, to muscle Percentage of wound debrided: 100 Instrument Used: 7mm curette Tissue Removed: Slough and devitalized tissue Severity: Fat Layer Exposed Amount of bleeding with debridement: Mild Bleeding Controlled with: Pressure Patient tolerated procedure: Patient tolerated procedure well Assessment/Plan Active Problems 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 Wound VAC applied to the right hip at 150 mmHg negative pressure. Aquacel dressing applied to the right lateral leg, right ankle, and right foot. Unna boots applied to bilateral lower extremities. Unna boots may be left in place for 1 week, until next appointment. If there is any concern regarding Unna boots, or the patient's erythema and swelling of bilateral lower extremities, the nurse or patient is to contact the wound healing center or patient should report to the emergency department. 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 We will submit an application for epifix today. At home wound-care instructions: The patient is to keep Unna boots clean and dry. If he notices numbness/tingling of the toes or discoloration of the toes, he is to contact the wound healing center or report to the emergency department. The patient's right hip wound VAC is to be changed 3 times weekly. Off-loading: Avoid pressure at ulcer sites. Avoid prolonged standing or dangling of the legs. When seated, keep feet elevated at chest level. If Unna boots begin to feel tight, elevate the feet. A Roho cushion was ordered for the patient to use when utilizing his wheelchair. He was instructed on appropriate offloading when seated/lying down. Frequent position changes were encouraged. Diet: Patient encouraged to increase protein and vitamin C intake while taking caution to avoid high carbohydrate and/or sugar intake. Labs/cultures/imaging: He completed a course of doxycycline on 04/11/2020. Patient's right hip culture from 04/07/2020 was positive for 1+ MRSA (susceptible to Bactrim), and he was started on Bactrim by his PCP on 04/11/20. Patient's right lower leg culture from 04/14/2020 was positive for rare MRSA (susceptible to Bactrim). Bactrim was continued. In the past 2 weeks, the patient developed right lower extremity erythema, warmth, and swelling which spread to the left lower extremity as well. At last week's appointment, Bactrim was discontinued and he was started on Clindamycin 450mg PO TID x 10 days. (Cultures showed susceptibility to clindamycin, and negative for inducible clindamycin resistance.) Since initiation of clindamycin, the patient and his caregiver report significant improvement in the erythema and edema of his bilateral lower extremities. Clindamycin was continued for another 7 days. Due to clinical signs of infection, new cultures were collected from the right hip on 04/28/2020, which were positive for 3+ Stenotrophomonas maltophilia and 1+ gram-positive allan. Susceptibility studies showed susceptibility of Stenotrophomonas maltophilia to levofloxacin and Bactrim. Anaerobic studies are pending. The patient will be started on levofloxacin 750 mg once daily for 7 days. Clindamycin will be discontinued. Additional antibiotics will be considered based on anaerobic culture results. The patient will be notified if a change in antibiotics is warranted. Patient believes he had a right hip x-ray at [facility]. Records not yet received. Routine baseline labwork (CRP, CMP, CBC D, ESR, prealbumin) was significant for the following: CRP 10.1 (H), glucose 123 (H), normal serum creatinine, estimated GFR 81.4, ESR 103 (H), RBC 3.46 (L), hemoglobin 10.5 (L), hematocrit 31.2 (L). ABIs were done in office today and were normal. Follow-up: Return to clinic in 1 week for re-evaluation. Return sooner or report to the emergency room should symptoms worsen, or new symptoms arise. Note: [employer] speech recognition vice president sales and marketing software was used to create portions of this document. Sound-alike and misspelled words, as well as other vice president sales and marketing errors may be contained in the documentation. Multi Select Codes - Integumentary Integumentary CPT Codes: 08337 Berna subq tissue 20 sq cm/<, 62170 Berna musc/fascia 20 sq cm/<
[2020-05-12 10:46] VITALS: BMI 20.8
--- NOTE | 2020-05-12 13:03 | PN.PCM_ITS ---
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 Code(s): E11.622 - Type 2 diabetes mellitus with other skin ulcer; L97.319 - Non-pressure chronic ulcer of right ankle with unspecified severity (3) Diabetic ulcer of right foot Status: Chronic Code(s): E11.621 - Type 2 diabetes mellitus with foot ulcer; L97.519 - Non-pressure chronic ulcer of other part of right foot with unspecified severity (4) Decubitus ulcer of right hip, stage 4 Status: Chronic Code(s): L89.214 - Pressure ulcer of right hip, stage 4 (5) Cellulitis of right lower extremity Status: Acute Code(s): L03.115 - Cellulitis of right lower limb (6) Diabetes mellitus type 2 in nonobese Status: Chronic Code(s): E11.9 - Type 2 diabetes mellitus without complications (7) Alcoholism Status: Chronic Code(s): F10.20 - Alcohol dependence, uncomplicated (8) Bipolar disorder Status: Chronic Code(s): F31.9 - Bipolar disorder, unspecified (9) Hyperlipidemia Status: Chronic Code(s): E78.5 - Hyperlipidemia, unspecified (10) Hypertension Status: Chronic Code(s): I10 - Essential (primary) hypertension Type of Wound Date of Service: 05/12/20 Chief Complaint: Ulcers of right foot, right ankle, right lateral leg, and right hip History of Wound: The patient presents to the wound healing center today, 04/07/2020, for an initial evaluation of right lower extremity ulcers of the foot, ankle, lateral leg and hip. He has a past medical history significant for type 2 diabetes mellitus, hypertension, hyperlipidemia, anemia, tobacco use and alcoholism. He states he has been sober for about 4 months. He no longer takes Metformin, and states this was discontinued due to causing renal insufficiency. He states his diabetes is currently managed with diet and exercise, though he has been not unable to exercise in recent months. He states that in December he suffered a fall and laid on the ground for 5 days, during which time he developed these ulcers. He reports subsequent impaired movement and sensation of his right lower extremity from the mid lower leg to his toes. [facility] a [facility] following hospitalization, and was receiving wound debridement approximately every 2 weeks. Santyl was used on the ulcers of his right lower leg, ankle and foot. A wound VAC was used for his right hip ulcer. He was discharged from the jail on 04/03/2020, at which time the wound VAC was discontinued. Since 04/03/2020, the patient has been using wet to dry gauze dressings to the right hip daily. He is receiving home health care from [facility] at home. He reports he is able to ambulate with the use of a walker, and also uses a wheelchair at times. He denies any fever or chills. He states there was a concern for infection in his right lateral leg ulcer, and he was started on doxycycline, which he is currently taking. He reports occasional nausea, but denies vomiting or diarrhea. He also reports a decreased appetite. He denies any recent copious, purulent, or foul-smelling drainage from his ulcers. Progress of Wound: The patient has been using wound VAC to his right hip ulcer, and is tolerating this well. His right hip ulcer has decreased in size this w [employer], though there is deepening of the undermining. There is no foul-smelling drainage from his right hip ulcer today. He has been using Aquacel Ag to the ulcers of his right leg. He denies any foul-smelling drainage from these ulcers. He reports the erythema and swelling of his bilateral lower extremities continues to improve with the use of antibiotics and Unna boots. The patient denies any fever or chills. He completed a course of doxycycline on 04/11/2020. Patient's right hip culture from 04/07/2020 was positive for 1+ MRSA (susceptible to Bactrim), and he was started on Bactrim by his PCP on 04/11/20. Patient's right lower leg culture from 04/14/2020 was positive for rare MRSA (susceptible to Bactrim). Bactrim was continued. He then developed right lower extremity erythema, warmth, and swelling which spread to the left lower extremity as well. At last week's appointment, Bactrim was discontinued and he was started on Clindamycin 450mg PO TID x 10 days. (Cultures showed susceptibility to clindamycin, and negative for inducible clindamycin resistance.) Since initiation of clindamycin, the patient and his caregiver report significant improvement in the erythema and edema of his bilateral lower extremities. His most recent wound culture revealed 3+ stenotrophomonas maltophilia susceptible to levofloxacin and Bactrim and 1+ corynebacterium striatum. Anaerobic studies were negative. Levofloxacin was not tolerated (caused weakness and confusion, per patient's PCP) and his PCP changed his antibiotic to Bactrim and his sypmtoms resolved. - Physical Exam Vital Signs Temp Pulse Resp BP 96.4 F L 69 16 132/53 H 05/05/20 10:30 05/05/20 10:30 04/17/20 00:38 05/05/20 10:30 General: Alert, Cooperative, No apparent distress HEENT: Atraumatic, Normocephalic Oral: Moist Mucosa Neck: Supple Lungs: Normal air movement Extremities: No clubbing, No cyanosis, Capillary Refill Less than 3 Seconds, Edema - 1+ pitting edema of left lower extremity, Peripheral Pulses Normal Skin: Ulcer/ Wound - Stage IV R hip ulcer, does not probe to bone, undermining present. No malodorous drainage; improved, aside from depth of undermining. Ulcers of R lateral leg, R foot, and R ankle with subcu layers exposed; improved. Small to moderate amount of slough present. No purulent/malodorous drainage., Rash Present - Cellulitic rash of right lower extremity from knee to foot has improved. Wound Measurements and Assessment WC - Nurse 1 - General Ulcer Measurement Start: 04/21/20 10:36 Freq: Status: Active Protocol: Activity Type Activity Date Activity User E-Sign Co-Sign Detail Recorded Client Recorded Date Recorded By Document 05/12/20 10:46 VIELKA [id number] 05/12/20 11:06 VIELKA 05/12/20 10:46 Wound Center Nurse 1 [Ulcer Assessment] #4 Right Lat Foot -Current Size (cm) - Length 0.3 -Current Size (cm) - Width 0.5 -Current Size (cm) - Depth 0.2 -Total Square Cm 0.15 -Exudate Amt Medium -Exudate Type Serous -Wound Margin Distinct, Outline Attached -Granulation Amt Medium (34-66%) -Granulation Quality [place] -Necrosis Amt Medium (34-66%) -Necrotic Tissue Type Adherent Slough -Texture (Cammie-wound Skin Appearance) Assessed, Scarring -Moisture (Cammie-wound Skin Appearance Assessed,Dry/ ) Scaly -Color (Cammie-wound Skin Appearance) No Abnormality, Assessed -Temperature (Cammie-wound Skin No Abnormality Appearance) (Pt Warm) -Tenderness on Palpation (Cammie-wound No Skin Appearance) -Ulcer Cleansing Rinsed/ Irrigated with Saline -Foul Odor after Cleansing No -Anesthetic Used 4% Lidocaine Solution #3 R Lat LE -Current Size (cm) - Length 5.9 -Current Size (cm) - Width 2.4 -Current Size (cm) - Depth 0.2 -Total Square Cm 14.16 -Exudate Amt Medium -Exudate Type Yellow/Green -Wound Margin Distinct, Outline Attached -Granulation Amt Large (67-100%) -Granulation Quality Red -Slough/Fibrin No -Necrosis Amt None Present (0 %) -Texture (Cammie-wound Skin Appearance) Assessed, Scarring -Moisture (Cammie-wound Skin Appearance No Abnormality, ) Assessed -Color (Cammie-wound Skin Appearance) No Abnormality, Assessed -Temperature (Cammie-wound Skin No Abnormality Appearance) (Pt Warm) -Tenderness on Palpation (Cammie-wound No Skin Appearance) -Ulcer Cleansing Rinsed/ Irrigated with Saline -Foul Odor after Cleansing No -Anesthetic Used 4% Lidocaine Solution #2 R Hip -Current Size (cm) - Length 1.5 -Current Size (cm) - Width 2 -Current Size (cm) - Depth 3.7 -Total Square Cm 3.0 -Exudate Amt Medium -Exudate Type Serous -Wound Margin Distinct, Outline Attached -Granulation Amt Medium (34-66%) -Granulation Quality [place] -Necrosis Amt Small (1-33%) -Necrotic Tissue Type Adherent Slough -Texture (Cammie-wound Skin Appearance) Assessed, Scarring -Moisture (Cammie-wound Skin Appearance No Abnormality, ) Assessed -Color (Cammie-wound Skin Appearance) No Abnormality, Assessed -Temperature (Cammie-wound Skin No Abnormality Appearance) (Pt Warm) -Tenderness on Palpation (Cammie-wound No Skin Appearance) -Ulcer Cleansing Rinsed/ Irrigated with Saline -Foul Odor after Cleansing No -Anesthetic Used 4% Lidocaine Solution #1 R ankle -Current Size (cm) - Length 1.6 -Current Size (cm) - Width 1.4 -Current Size (cm) - Depth 0.2 -Total Square Cm 2.24 -Exudate Amt Medium -Exudate Type Serosanguineous -Wound Margin Distinct, Outline Attached -Granulation Amt Small (1-33%) -Granulation Quality Red -Necrosis Amt Medium (34-66%) -Necrotic Tissue Type Adherent Slough -Texture (Cammie-wound Skin Appearance) Assessed, Scarring -Moisture (Cammie-wound Skin Appearance No Abnormality, ) Assessed -Color (Cammie-wound Skin Appearance) No Abnormality, Assessed -Temperature (Cammie-wound Skin No Abnormality Appearance) (Pt Warm) -Tenderness on Palpation (Cammie-wound No Skin Appearance) -Ulcer Cleansing Rinsed/ Irrigated with Saline -Foul Odor after Cleansing No -Anesthetic Used 4% Lidocaine Solution [Edema Assessment] -Right Calf (cm) 33.6 -Right Ankle (cm) 21.7 -Left Calf (cm) 31.4 -Left Ankle (cm) 20 WC - Nurse 2 - General Ulcer CM Notes Start: 04/21/20 10:36 Freq: Status: Active Protocol: Activity Type Activity Date Activity User E-Sign Co-Sign Detail Recorded Client Recorded Date Recorded By Document 05/12/20 11:56 HEATHER [id number] 05/12/20 12:01 HEATHER 05/12/20 11:56 Wound Center Nurse 2 [Procedure/Treatment] #4 Right Lat Foot -Time 11:25 -Correct Patient Yes -Correct Side, Site, Position Yes -Correct Procedure Yes -Procedure Performed Yes -Type of Procedure Debridement -Clinical Debridement Subcutaneous -Tissue Removed Subcutaneous -Post Debridement (cm) - Length 0.4 -Post Debridement (cm) - Width 0.7 -Post Debridement (cm) - Depth 0.1 -Total Square (Post) (cm) 0.28 -Area of Debridement (cm) - Length 0.4 -Area of Debridement (cm) - Width 0.7 -Total Square (Area) (cm) 0.28 -Tunneling No -Undermining/Tunneling No -Circular Undermining No -Wound/Ulcer Outcome Not Healed -Ulcer Cleansing Rinsed/ Irrigated with Saline -Foul Odor after Cleansing No -Bioengineered Tissue No -Debridement - Subq, 1st 20sq cm No #3 R Lat LE -Time 11:25 -Correct Patient Yes -Correct Side, Site, Position Yes -Correct Procedure Yes -Procedure Performed Yes -Type of Procedure Debridement -Clinical Debridement Subcutaneous -Tissue Removed Subcutaneous -Post Debridement (cm) - Length 5.5 -Post Debridement (cm) - Width 2.5 -Post Debridement (cm) - Depth 0.1 -Total Square (Post) (cm) 13.75 -Area of Debridement (cm) - Length 5.5 -Area of Debridement (cm) - Width 2.5 -Total Square (Area) (cm) 13.75 -Tunneling No -Undermining/Tunneling No -Circular Undermining No -Wound/Ulcer Outcome Not Healed -Ulcer Cleansing Rinsed/ Irrigated with Saline -Foul Odor after Cleansing No -Bioengineered Tissue No -Debridement - Subq, 1st 20sq cm Yes #2 R Hip -Time 11:25 -Correct Patient Yes -Correct Side, Site, Position Yes -Correct Procedure Yes -Procedure Performed Yes -Type of Procedure Debridement -Clinical Debridement Muscle / Fascia -Tissue Removed Epidermis, Dermis, Subcutaneous, Muscle -Post Debridement (cm) - Length 2 -Post Debridement (cm) - Width 2 -Post Debridement (cm) - Depth 2.9 -Total Square (Post) (cm) 4 -Area of Debridement (cm) - Length 2 -Area of Debridement (cm) - Width 2 -Total Square (Area) (cm) 4 -Undermining/Tunneling Yes -Undermining/Tunneling Starts (O' 1 clock) -Undermining/Tunneling Ends (O'clock) 4 -Maximum Distance (cm) 5.0 -Circular Undermining No -Wound/Ulcer Outcome Not Healed -Ulcer Cleansing Rinsed/ Irrigated with Saline -Foul Odor after Cleansing No -Bioengineered Tissue No -Bleeding Controlled with Pressure -Treatment Response Procedure Tolerated Well -Debridement - Muscle / Fascia, 1st Yes 20sq cm #1 R ankle -Time 11:25 -Correct Patient Yes -Correct Side, Site, Position Yes -Correct Procedure Yes -Procedure Performed Yes -Type of Procedure Debridement -Clinical Debridement Subcutaneous -Tissue Removed Subcutaneous -Post Debridement (cm) - Length 1.5 -Post Debridement (cm) - Width 1.6 -Post Debridement (cm) - Depth 0.3 -Total Square (Post) (cm) 2.40 -Area of Debridement (cm) - Length 1.5 -Area of Debridement (cm) - Width 1.6 -Total Square (Area) (cm) 2.40 -Tunneling No -Undermining/Tunneling No -Circular Undermining No -Wound/Ulcer Outcome Not Healed -Ulcer Cleansing Rinsed/ Irrigated with Saline -Foul Odor after Cleansing No -Bioengineered Tissue No -Debridement - Subq, 1st 20sq cm No [See Physician Procedure note for Specifics] Pain Scale: 0-10 Numeric [Pain] -Is Patient Pain Free? Yes Musculoskeletal: Muscle Wasting Psych/Mental Status: Normal Affect, Appropriate Debridement Note Post-Debridement Measurements/Treatment WC - Nurse 2 - General Ulcer CM Notes Start: 04/21/20 10:36 Freq: Status: Active Protocol: Activity Type Activity Date Activity User E-Sign Co-Sign Detail Recorded Client Recorded Date Recorded By Document 04/21/20 13:26 PL [id number] 04/21/20 13:31 PL Document 04/28/20 14:28 PL [id number] 04/28/20 14:33 PL Document 05/05/20 14:08 PL [id number] 05/05/20 14:13 PL Document 05/12/20 11:56 PL [id number] 05/12/20 12:01 PL 04/21/20 04/28/20 05/05/20 13:26 14:28 14:08 Wound Center Nurse 2 #4 Right Lat Foot -Time 10:58 10:56 10:50 -Correct Patient Yes Yes Yes -Correct Side, Site, Position Yes Yes Yes -Correct Procedure Yes Yes Yes -Procedure Performed Yes Yes Yes -Type of Procedure Debridement Debridement Debridement -Clinical Debridement Subcutaneous Subcutaneous Subcutaneous -Tissue Removed Subcutaneous Subcutaneous Subcutaneous -Post Debridement (cm) - Length 0.5 0.5 0.6 -Post Debridement (cm) - Width 0.9 0.8 0.9 -Post Debridement (cm) - Depth 0.2 0.1 0.1 -Total Square (Post) (cm) 0.45 0.40 0.54 -Area of Debridement (cm) - Length 0.5 0.5 0.6 -Area of Debridement (cm) - Width 0.9 0.8 0.9 -Total Square (Area) (cm) 0.45 0.40 0.54 -Tunneling No No No -Undermining/Tunneling No No No -Circular Undermining No No No -Wound/Ulcer Outcome Not Healed Not Healed Not Healed -Ulcer Cleansing Rinsed/ Rinsed/ Rinsed/ Irrigated with Irrigated with Irrigated with Saline Saline Saline -Foul Odor after Cleansing No No No -Bioengineered Tissue No No No -Bleeding Controlled with Pressure -Treatment Response Procedure Tolerated Well -Debridement - Subq, 1st 20sq cm No Yes No #3 R Lat LE -Time 10:58 10:56 10:50 -Correct Patient Yes Yes Yes -Correct Side, Site, Position Yes Yes Yes -Correct Procedure Yes Yes Yes -Procedure Performed Yes Yes Yes -Type of Procedure Debridement Debridement Debridement -Clinical Debridement Subcutaneous Subcutaneous Subcutaneous -Tissue Removed Subcutaneous Subcutaneous Subcutaneous -Post Debridement (cm) - Length 4.9 4.9 5.5 -Post Debridement (cm) - Width 3.5 3.0 2.8 -Post Debridement (cm) - Depth 0.1 0.1 0.1 -Total Square (Post) (cm) 17.15 14.70 15.40 -Area of Debridement (cm) - Length 4.9 4.9 5.5 -Area of Debridement (cm) - Width 3.5 3.0 2.8 -Total Square (Area) (cm) 17.15 14.70 15.40 -Tunneling No No No -Undermining/Tunneling No No No -Circular Undermining No No No -Wound/Ulcer Outcome Not Healed Not Healed Not Healed -Ulcer Cleansing Rinsed/ Rinsed/ Rinsed/ Irrigated with Irrigated with Irrigated with Saline Saline Saline -Foul Odor after Cleansing No No No -Bioengineered Tissue No No No -Debridement - Subq, 1st 20sq cm Yes No No #2 R Hip -Time 10:58 10:56 10:50 -Correct Patient Yes Yes Yes -Correct Side, Site, Position Yes Yes Yes -Correct Procedure Yes Yes Yes -Procedure Performed Yes Yes Yes -Type of Procedure Debridement Debridement Debridement -Clinical Debridement Muscle / Fascia Muscle / Fascia Muscle / Fascia -Tissue Removed Muscle Subcutaneous, Subcutaneous, Muscle Muscle -Post Debridement (cm) - Length 3.0 2.8 2.3 -Post Debridement (cm) - Width 4.0 3.0 2.8 -Post Debridement (cm) - Depth 3.8 4.3 3.9 -Total Square (Post) (cm) 12.00 8.40 6.44 -Area of Debridement (cm) - Length 3.0 2.8 2.3 -Area of Debridement (cm) - Width 4.0 3.0 2.8 -Total Square (Area) (cm) 12.00 8.40 6.44 -Tunneling No No No -Undermining/Tunneling No Yes Yes -Undermining/Tunneling Starts (O'clock 10 1 ) -Undermining/Tunneling Ends (O'clock) 2 4 -Maximum Distance (cm) 4.0 3.5 -Circular Undermining No No No -Wound/Ulcer Outcome Not Healed Not Healed Not Healed -Ulcer Cleansing Rinsed/ Rinsed/ Rinsed/ Irrigated with Irrigated with Irrigated with Saline Saline Saline -Foul Odor after Cleansing No No No -Bioengineered Tissue No No No -Bleeding Controlled with -Treatment Response -Debridement - Subq, 1st 20sq cm No -Debridement - Muscle / Fascia, 1st Yes Yes Yes 20sq cm #1 R ankle -Time 10:58 10:56 10:50 -Correct Patient Yes Yes Yes -Correct Side, Site, Position Yes Yes Yes -Correct Procedure Yes Yes Yes -Procedure Performed Yes Yes Yes -Type of Procedure Debridement Debridement Debridement -Clinical Debridement Subcutaneous Subcutaneous Subcutaneous -Tissue Removed Subcutaneous Subcutaneous Subcutaneous -Post Debridement (cm) - Length 1.9 1.9 1.5 -Post Debridement (cm) - Width 2.0 1.8 1.7 -Post Debridement (cm) - Depth 0.3 0.3 0.3 -Total Square (Post) (cm) 3.80 3.42 2.55 -Area of Debridement (cm) - Length 1.9 1.9 1.5 -Area of Debridement (cm) - Width 2.0 1.8 1.7 -Total Square (Area) (cm) 3.80 3.42 2.55 -Tunneling No No No -Undermining/Tunneling No No No -Circular Undermining No No No -Wound/Ulcer Outcome Not Healed Not Healed Not Healed -Ulcer Cleansing Rinsed/ Rinsed/ Rinsed/ Irrigated with Irrigated with Irrigated with Saline Saline Saline -Foul Odor after Cleansing No No No -Bioengineered Tissue No No No -Debridement - Subq, 1st 20sq cm No No Yes Pain Scale: 0-10 Numeric Is Patient Pain Free? Yes Yes Yes 05/12/20 11:56 Wound Center Nurse 2 #4 Right Lat Foot -Time 11:25 -Correct Patient Yes -Correct Side, Site, Position Yes -Correct Procedure Yes -Procedure Performed Yes -Type of Procedure Debridement -Clinical Debridement Subcutaneous -Tissue Removed Subcutaneous -Post Debridement (cm) - Length 0.4 -Post Debridement (cm) - Width 0.7 -Post Debridement (cm) - Depth 0.1 -Total Square (Post) (cm) 0.28 -Area of Debridement (cm) - Length 0.4 -Area of Debridement (cm) - Width 0.7 -Total Square (Area) (cm) 0.28 -Tunneling No -Undermining/Tunneling No -Circular Undermining No -Wound/Ulcer Outcome Not Healed -Ulcer Cleansing Rinsed/ Irrigated with Saline -Foul Odor after Cleansing No -Bioengineered Tissue No -Bleeding Controlled with -Treatment Response -Debridement - Subq, 20sq cm No #3 R Lat LE -Time 11:25 -Correct Patient Yes -Correct Side, Site, Position Yes -Correct Procedure Yes -Procedure Performed Yes -Type of Procedure Debridement -Clinical Debridement Subcutaneous -Tissue Removed Subcutaneous -Post Debridement (cm) - Length 5.5 -Post Debridement (cm) - Width 2.5 -Post Debridement (cm) - Depth 0.1 -Total Square (Post) (cm) 13.75 -Area of Debridement (cm) - Length 5.5 -Area of Debridement (cm) - Width 2.5 -Total Square (Area) (cm) 13.75 -Tunneling No -Undermining/Tunneling No -Circular Undermining No -Wound/Ulcer Outcome Not Healed -Ulcer Cleansing Rinsed/ Irrigated with Saline -Foul Odor after Cleansing No -Bioengineered Tissue No -Debridement - Subq, 20sq cm Yes #2 R Hip -Time 11:25 -Correct Patient Yes -Correct Side, Site, Position Yes -Correct Procedure Yes -Procedure Performed Yes -Type of Procedure Debridement -Clinical Debridement Muscle / Fascia -Tissue Removed Epidermis, Dermis, Subcutaneous, Muscle -Post Debridement (cm) - Length 2 -Post Debridement (cm) - Width 2 -Post Debridement (cm) - Depth 2.9 -Total Square (Post) (cm) 4 -Area of Debridement (cm) - Length 2 -Area of Debridement (cm) - Width 2 -Total Square (Area) (cm) 4 -Tunneling -Undermining/Tunneling Yes -Undermining/Tunneling Starts (O'clock 1 ) -Undermining/Tunneling Ends (O'clock) 4 -Maximum Distance (cm) 5.0 -Circular Undermining No -Wound/Ulcer Outcome Not Healed -Ulcer Cleansing Rinsed/ Irrigated with Saline -Foul Odor after Cleansing No -Bioengineered Tissue No -Bleeding Controlled with Pressure -Treatment Response Procedure Tolerated Well -Debridement - Subq, 1st 20sq cm -Debridement - Muscle / Fascia, 1st Yes 20sq cm #1 R ankle -Time 11:25 -Correct Patient Yes -Correct Side, Site, Position Yes -Correct Procedure Yes -Procedure Performed Yes -Type of Procedure Debridement -Clinical Debridement Subcutaneous -Tissue Removed Subcutaneous -Post Debridement (cm) - Length 1.5 -Post Debridement (cm) - Width 1.6 -Post Debridement (cm) - Depth 0.3 -Total Square (Post) (cm) 2.40 -Area of Debridement (cm) - Length 1.5 -Area of Debridement (cm) - Width 1.6 -Total Square (Area) (cm) 2.40 -Tunneling No -Undermining/Tunneling No -Circular Undermining No -Wound/Ulcer Outcome Not Healed -Ulcer Cleansing Rinsed/ Irrigated with Saline -Foul Odor after Cleansing No -Bioengineered Tissue No -Debridement - Subq, 1st 20sq cm No Pain Scale: 0-10 Numeric Is Patient Pain Free? Yes WC - Nurse 3 - General Ulcer D/C NN Start: 04/21/20 10:36 Freq: Status: Active Protocol: Activity Type Activity Date Activity User E-Sign Co-Sign Detail Recorded Client Recorded Date Recorded By Document 04/21/20 11:22 MS [id number] 04/21/20 11:25 MS Document 04/28/20 12:01 [facility] [id number] 04/28/20 12:03 [facility] Document 05/05/20 11:40 JF [id number] 05/05/20 11:41 JF 04/21/20 04/28/20 05/05/20 11:22 12:01 11:40 Wound Care Nurse 3 #4 Right Lat Foot -Ulcer Cleansing Rinsed/ Rinsed/ Rinsed/ Irrigated with Irrigated with Irrigated with Saline Saline Saline -Foul Odor after Cleansing No No No -Primary Dressing Applied Aquacel AG 4x4 Aquacel Extra -Other Dressing hydrogel,abd unna boot drysorb -Primary Dressing Covered/Secured with Dry Gauze, Secured with Tape -Other Covering drsg per k ruminski cloth pattern maker -Aquacel Extra 1 -Aquacel AG 4x4 1 #3 R Lat LE -Ulcer Cleansing Rinsed/ Rinsed/ Rinsed/ Irrigated with Irrigated with Irrigated with Saline Saline Saline -Foul Odor after Cleansing No No -Primary Dressing Applied Aquacel AG 4x4 Aquacel Extra -Other Dressing hydrogel,abd drysorb -Primary Dressing Covered/Secured with Dry Gauze, Secured with Tape -Other Covering unna boot per k ruminski cloth pattern maker -Aquacel Extra 0 -Aquacel AG 4x4 0 #2 R Hip -Ulcer Cleansing Rinsed/ Rinsed/ Rinsed/ Irrigated with Irrigated with Irrigated with Saline Saline Saline -Foul Odor after Cleansing No No No -Negative Pressure Wound Therapy Continue Continue -Setting (mmHg) 150 150 -Negative Pressure is Continuous Continuous -Primary Dressing Applied Aquacel Extra -Other Dressing drysorb -NPWT Application Charge ($) NPWT </= 50 sq NPWT </= 50 sq cm cm -Aquacel Extra 0 #1 R ankle -Ulcer Cleansing Rinsed/ Rinsed/ Rinsed/ Irrigated with Irrigated with Irrigated with Saline Saline Saline -Foul Odor after Cleansing No -Negative Pressure Wound Therapy Continue -Setting (mmHg) 150 -Negative Pressure is Continuous -Other Dressing hydrogel,abd -Primary Dressing Covered/Secured with Dry Gauze, Secured with Tape -NPWT Application Charge ($) NPWT </= 50 sq cm Bilateral -Multi-Layered Wrap Application Unna Boot - Bilateral ($) -Unna Boots (Bilat) ($) 2 Right -Compression Wrap Unna Boot ($) ( single) Left -Compression Wrap Unna Boot ($) ( single) Pain Scale: 0-10 Numeric Is Patient Pain Free? Yes Yes Yes WC - Visit Discharge Discharge Condition Stable Stable Stable Ambulatory Status Wheelchair Wheelchair Wheelchair Transportation Private Auto Private Auto Accompanied by tara hartman Medication Reconcilliation completed & Yes provided to patient/care provider Clinical Summary of Care Provided Yes Yes Facility Type Home Health Wound debrided: Right foot ulcer Laterality: Right Wound Grade/Stage: Mendez 1 Type of Debridement: Excisional debridement Anesthesia Used: 4% Lidocaine Solution Depth: in the subcutaneous layer Percentage of wound debrided: 100 Instrument Used: 3mm curette Tissue Removed: Slough and devitalized tissue Severity: Fat Layer Exposed Amount of bleeding with debridement: Mild Bleeding Controlled with: Pressure Patient tolerated procedure well - Additional Wound Wound debrided: Right ankle ulcer Laterality: Right Wound Grade/Stage: Mendez 1 Type of Debridement: Excisional debridement Anesthesia Used: 4% Lidocaine Solution Depth: in the subcutaneous layer, to muscle Percentage of wound debrided: 100 Instrument Used: 5mm curette Tissue Removed: Slough and devitalized tissue Severity: Fat Layer Exposed Amount of bleeding with debridement: Mild Bleeding Controlled with: Pressure Patient tolerated procedure: Patient tolerated procedure well - Additional Wound Wound debrided: Right lateral leg ulcer Laterality: Right Wound Grade/Stage: Stage II Type of Debridement: Excisional debridement Anesthesia Used: 4% Lidocaine Solution Depth: in the subcutaneous layer Percentage of wound debrided: 100 Instrument Used: 7mm curette Tissue Removed: Slough and devitalized tissue Severity: Fat Layer Exposed Amount of bleeding with debridement: Mild Bleeding Controlled with: Pressure Patient tolerated procedure: Patient tolerated procedure well - Additional Wound Wound debrided: Right hip ulcer Laterality: Right Wound Grade/Stage: Stage IV Type of Debridement: Excisional debridement Anesthesia Used: 4% Lidocaine Solution Depth: in the subcutaneous layer Percentage of wound debrided: 100 Instrument Used: 7mm curette Tissue Removed: Slough and devitalized tissue Severity: Fat Layer Exposed Amount of bleeding with debridement: Mild Bleeding Controlled with: Pressure Patient tolerated procedure: Patient tolerated procedure well Assessment/Plan Active Problems 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 Wound VAC applied to the right hip at 150 mmHg negative pressure, with special instructions to pack 1:00 undermining with foam. Aquacel dressing applied to the right lateral leg, right ankle, and right foot. Unna boots applied to bilateral lower extremities. Unna boots may be left in place for 1 week, until next appointment. If there is any concern regarding Unna boots, or the patient's erythema and swelling of bilateral lower extremities, the nurse or patient is to contact the wound healing center or patient should report to the emergency department. 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 At home wound-care instructions: The patient is to keep Unna boots clean and dry. If he notices numbness/tingling of the toes or discoloration of the toes, he is to contact the wound healing center or report to the emergency department. The patient's right hip wound VAC is to be changed 3 times weekly. Off-loading: Avoid pressure at ulcer sites. Avoid prolonged standing or dangling of the legs. When seated, keep feet elevated at chest level. If Unna boots begin to feel tight, elevate the feet. A Roho cushion was ordered for the patient to use when utilizing his wheelchair. He was instructed on appropriate offloading when seated/lying down. Frequent position changes were encouraged. Diet: Patient encouraged to increase protein and vitamin C intake while taking caution to avoid high carbohydrate and/or sugar intake. Labs/cultures/imaging: He completed a course of doxycycline on 04/11/2020. Patient's right hip culture from 04/07/2020 was positive for 1+ MRSA (susceptible to Bactrim), and he was started on Bactrim by his PCP on 04/11/20. Patient's right lower leg culture from 04/14/2020 was positive for rare MRSA (susceptible to Bactrim). Bactrim was continued. In recent weeks, the patient developed right lower extremity erythema, warmth, and swelling which spread to the left lower extremity as well. Bactrim was discontinued and he was started on Clindamycin 450mg PO TID x 10 days. (Cultures showed susceptibility to clindamycin, and negative for inducible clindamycin resistance.) With initiation of clindamycin, the patient and his caregiver report significant improvement in the erythema and edema of his bilateral lower extremities. Clindamycin was continued for another 7 days. Due to clinical signs of infection, new cultures were collected from the right hip on 04/28/2020, which were positive for 3+ Stenotrophomonas maltophilia and 1+ corynebacterium striatum. Susceptibility studies showed susceptibility of Stenotrophomonas maltophilia to levofloxacin and Bactrim. Anaerobic studies were negative. The patient was started on levofloxacin 750 mg once daily for 7 days. Per his primary care provider, this was not well-tolerated (caused weakness and confusion) and his primary care provider discontinued levofloxacin and started him on Bactrim; side effects resolved with antibiotic change. Patient believes he had a right hip x-ray at [facility]. Records not yet received. Routine baseline labwork (CRP, CMP, CBC D, ESR, prealbumin) was significant for the following: CRP 10.1 (H), glucose 123 (H), normal serum creatinine, estimated GFR 81.4, ESR 103 (H), RBC 3.46 (L), hemoglobin 10.5 (L), hematocrit 31.2 (L). ABIs were done in office today and were normal. Follow- up: Return to clinic in 1 week for re-evaluation. Return sooner or report to the emergency room should symptoms worsen, or new symptoms arise. We have discussed in great detail the clinical signs of infection or worsening overall condition and emphasized the importance of seeking emergency medical care should these occur. Note: [employer] speech recognition central control room operator software was used to create portions of this document. Sound-alike and misspelled words, as well as other central control room operator errors may be contained in the documentation. Multi Select Codes - Integumentary Integumentary CPT Codes: 66618 Berna subq tissue 20 sq cm/<, 58215 Berna musc/fascia 20 sq cm/<
== END 2020-05-17 23:59 ==
LOC: WC 10:30
PROVIDERS: PCP Student in an Organized Health Care Education/Training Program; Referring Provider Family Medicine; Visit Provider Nurse Practitioner Family
DX: E11.621 Type 2 diabetes mellitus with foot ulcer (principal); L97.312 Non-pressure chronic ulcer of right ankle with fat layer exposed; E11.622 Type 2 diabetes mellitus with other skin ulcer; L03.115 Cellulitis of right lower limb; L89.214 Pressure ulcer of right hip, stage 4; F10.20 Alcohol dependence, uncomplicated; E78.5 Hyperlipidemia, unspecified; I10 Essential (primary) hypertension; Z86.14 Personal history of Methicillin resistant Staphylococcus aureus infection; L97.512 Non-pressure chronic ulcer of other part of right foot with fat layer exposed; L97.812 Non-pressure chronic ulcer of other part of right lower leg with fat layer exposed
CPT/HCPCS: 11042; 11043; 29580; 87070; 87075; 87077; 87186; 87205; 97605

== ENCOUNTER 2020-06-16 10:30 | Outpatient (RCR) | payer MEDICARE, SELFPAY ==
[2020-05-18 00:44] VITALS: BP 132/53; PULSE 69; RESP 16; TEMP 35.8
[2020-05-19 11:43] VITALS: BP 123/61; PULSE 95; RESP 16; TEMP 36.4; BMI 20.8
--- NOTE | 2020-05-19 15:02 | PN.PCM_ITS ---
(1) Diabetic ulcer of right lower leg Status: Chronic Code(s): E11.622 - Type 2 diabetes mellitus with other skin ulcer; L97.919 - Non-pressure chronic ulcer of unspecified part of right lower leg with unspecified severity (2) Diabetic ulcer of right foot Status: Chronic Code(s): E11.621 - Type 2 diabetes mellitus with foot ulcer; L97.519 - Non-pressure chronic ulcer of other part of right foot with unspecified severity (3) Diabetic ulcer of right ankle Status: Chronic Code(s): E11.622 - Type 2 diabetes mellitus with other skin ulcer; L97.319 - Non-pressure chronic ulcer of right ankle with unspecified severity (4) Diabetes mellitus type 2 in nonobese Status: Chronic Code(s): E11.9 - Type 2 diabetes mellitus without complications (5) Decubitus ulcer of right hip, stage 4 Status: Chronic Code(s): L89.214 - Pressure ulcer of right hip, stage 4 (6) Cellulitis of right lower extremity Status: Resolved Code(s): L03.115 - Cellulitis of right lower limb (7) Alcoholism Status: Chronic Code(s): F10.20 - Alcohol dependence, uncomplicated (8) Bipolar disorder Status: Chronic Code(s): F31.9 - Bipolar disorder, unspecified (9) Hyperlipidemia Status: Chronic Code(s): E78.5 - Hyperlipidemia, unspecified (10) Hypertension Status: Chronic Code(s): I10 - Essential (primary) hypertension Type of Wound Date of Service: 05/19/20 Chief Complaint: Ulcers of right foot, right ankle, right lateral leg, and right hip History of Wound: The patient presents to the wound healing center today, 04/07/2020, for an initial evaluation of right lower extremity ulcers of the foot, ankle, lateral leg and hip. He has a past medical history significant for type 2 diabetes mellitus, hypertension, hyperlipidemia, anemia, tobacco use and alcoholism. He states he has been sober for about 4 months. He no longer takes Metformin, and states this was discontinued due to causing renal insufficiency. He states his diabetes is currently managed with diet and exercise, though he has been not unable to exercise in recent months. He states that in December he suffered a fall and laid on the ground for 5 days, during which time he developed these ulcers. He reports subsequent impaired movement and sensation of his right lower extremity from the mid lower leg to his toes. [facility], and was receiving wound debridement approximately every 2 weeks. Santyl was used on the ulcers of his right lower leg, ankle and foot. A wound VAC was used for his right hip ulcer. He was [facility] from the [facility]iary on 04/03/2020, at which time the wound VAC was discontinued. Since 04/03/2020, the patient has been using wet to dry gauze dressings to the right hip daily. He is receiving home health care from [facility]. He reports he is able to ambulate with the use of a walker, and also uses a wheelchair at times. He denies any fever or chills. He states there was a concern for infection in his right lateral leg ulcer, and he was started on doxycycline, which he is currently taking. He reports occasional nausea, but denies vomiting or diarrhea. He also reports a decreased appetite. He denies any recent copious, purulent, or foul-smelling drainage from his ulcers. Progress of Wound: The patient has been using wound VAC to his right hip ulcer, and is tolerating this well. His right hip ulcer has decreased in size this week, and tunneling is improved in depth. There is no foul-smelling drainage from his right hip ulcer today. He has been using Aquacel Ag to the ulcers of his right leg. He denies any foul-smelling drainage from these ulcers. The erythema and swelling of his bilateral lower extremities is significantly improved. The patient denies any fever or chills. He completed a course of doxycycline on 04/11/2020. Patient's right hip culture from 04/07/2020 was positive for 1+ MRSA (susceptible to Bactrim), and he was started on Bactrim by his PCP on 04/11/20. Patient's right lower leg culture from 04/14/2020 was positive for rare MRSA (susceptible to Bactrim). Bactrim was continued. He then developed right lower extremity erythema, warmth, and swelling which spread to the left lower extremity as well. At last week's appointment, Bactrim was discontinued and he was started on Clindamycin 450mg PO TID x 10 days. (Cultures showed susceptibility to clindamycin, and negative for inducible clindamycin resistance.) With initiation of clindamycin, the patient and his caregiver reported significant improvement in the erythema and edema of his bilateral lower extremities. His most recent wound culture revealed 3+ stenotrophomonas maltophilia susceptible to levofloxacin and Bactrim and 1+ corynebacterium striatum. Anaerobic studies were negative. Levofloxacin was not tolerated (caused weakness and confusion, per patient's PCP) and his PCP changed his antibiotic to Bactrim and his sypmtoms resolved. He has one more day of antibiotics before he is completed with his course of Bactrim. - Physical Exam Vital Signs Temp Pulse Resp BP 97.6 F L 95 16 123/61 H 05/19/20 11:43 05/19/20 11:43 05/19/20 11:43 05/19/20 11:43 General: Alert, Cooperative, No apparent distress HEENT: Atraumatic, Normocephalic Oral: Moist Mucosa Lungs: Normal air movement Extremities: No clubbing, No cyanosis, Edema - Trace edema of right lower extremity, Peripheral Pulses Normal Skin: No rashes - cellulitis resolved, Ulcer/ Wound - Stage IV R hip ulcer, does not probe to bone, undermining present. No malodorous drainage; improved. Ulcers of R lateral leg, R foot, and R ankle with subcu layers exposed, no tunneling or undermining. Small to moderate amount of slough present. No purulent/malodorous drainage. Wound Measurements and Assessment WC - Nurse 1 - General Ulcer Measurement Start: 05/19/20 11:43 Freq: Status: Active Protocol: Activity Type Activity Date Activity User E-Sign Co-Sign Detail Recorded Client Recorded Date Recorded By Document 05/19/20 11:43 HARDIK [id number] 05/19/20 11:47 HARDIK 05/19/20 11:43 Wound Center Nurse 1 [Ulcer Assessment] #4 Right Lat Foot -Current Size (cm) - Length 0.5 -Current Size (cm) - Width 0.5 -Current Size (cm) - Depth 0.3 -Total Square Cm 0.25 -Exudate Amt Medium -Exudate Type Serosanguineous -Wound Margin Distinct, Outline Attached -Granulation Amt Medium (34-66%) -Slough/Fibrin Yes -Necrosis Amt Medium (34-66%) -Necrotic Tissue Type Adherent Slough -Texture (Cammie-wound Skin Appearance) No Abnormality -Moisture (Cammie-wound Skin Appearance No Abnormality ) -Color (Cammie-wound Skin Appearance) No Abnormality -Temperature (Cammie-wound Skin No Abnormality Appearance) (Pt Warm) -Ulcer Cleansing Rinsed/ Irrigated with Saline -Foul Odor after Cleansing No -Anesthetic Used 4% Lidocaine Solution #3 R Lat LE -Current Size (cm) - Length 5.5 -Current Size (cm) - Width 2.5 -Current Size (cm) - Depth 0.2 -Total Square Cm 13.75 -Exudate Amt Medium -Exudate Type Serosanguineous -Wound Margin Distinct, Outline Attached -Granulation Amt Medium (34-66%) -Slough/Fibrin Yes -Necrosis Amt Medium (34-66%) -Necrotic Tissue Type Adherent Slough -Texture (Cammie-wound Skin Appearance) No Abnormality -Moisture (Cammie-wound Skin Appearance No Abnormality ) -Color (Cammie-wound Skin Appearance) No Abnormality -Temperature (Cammie-wound Skin No Abnormality Appearance) (Pt Warm) -Ulcer Cleansing Rinsed/ Irrigated with Saline -Foul Odor after Cleansing No -Anesthetic Used 4% Lidocaine Solution #2 R Hip -Current Size (cm) - Length 1 -Current Size (cm) - Width 2.5 -Current Size (cm) - Depth 3.8 -Total Square Cm 2.5 -Exudate Amt Large -Exudate Type Serosanguineous -Wound Margin Distinct, Outline Attached -Granulation Amt Medium (34-66%) -Slough/Fibrin No -Necrosis Amt Medium (34-66%) -Texture (Cammie-wound Skin Appearance) No Abnormality -Moisture (Cammie-wound Skin Appearance No Abnormality ) -Color (Cammie-wound Skin Appearance) No Abnormality -Temperature (Cammie-wound Skin No Abnormality Appearance) (Pt Warm) -Tenderness on Palpation (Cammie-wound Yes Skin Appearance) -Ulcer Cleansing Rinsed/ Irrigated with Saline -Foul Odor after Cleansing No -Anesthetic Used 4% Lidocaine Solution #1 R ankle -Current Size (cm) - Length 1.5 -Current Size (cm) - Width 1.5 -Current Size (cm) - Depth 0.3 -Total Square Cm 2.25 -Exudate Amt Small -Exudate Type Serosanguineous -Wound Margin Distinct, Outline Attached -Granulation Amt Medium (34-66%) -Necrosis Amt Medium (34-66%) -Necrotic Tissue Type Adherent Slough -Texture (Cammie-wound Skin Appearance) No Abnormality -Moisture (Cammie-wound Skin Appearance No Abnormality ) -Color (Cammie-wound Skin Appearance) No Abnormality -Temperature (Cammie-wound Skin No Abnormality Appearance) (Pt Warm) -Tenderness on Palpation (Cammie-wound No Skin Appearance) -Ulcer Cleansing Rinsed/ Irrigated with Saline -Foul Odor after Cleansing No -Anesthetic Used 4% Lidocaine Solution Musculoskeletal: Muscle Wasting Psych/Mental Status: Normal Affect, Appropriate Debridement Note Wound debrided: Right foot ulcer Laterality: Right Wound Grade/Stage: Mendez 1 Anesthesia Used: 4% Lidocaine Solution Depth: in the subcutaneous layer Percentage of wound debrided: 100 Instrument Used: 3mm curette Tissue Removed: Slough and devitalized tissue Severity: Fat Layer Exposed Amount of bleeding with debridement: Mild Bleeding Controlled with: Pressure Patient tolerated procedure well - Additional Wound Wound debrided: Right ankle ulcer Laterality: Right Wound Grade/Stage: Mendez 1 Type of Debridement: Excisional debridement Anesthesia Used: 4% Lidocaine Solution Depth: in the subcutaneous layer Percentage of wound debrided: 100 Instrument Used: 5mm curette Tissue Removed: Slough and devitalized tissue Severity: Fat Layer Exposed Amount of bleeding with debridement: Mild Bleeding Controlled with: Pressure Patient tolerated procedure: Patient tolerated procedure well - Additional Wound Wound debrided: Right lateral leg ulcer Laterality: Right Wound Grade/Stage: Stage II Type of Debridement: Excisional debridement Anesthesia Used: 4% Lidocaine Solution, Cetacaine Depth: in the subcutaneous layer Percentage of wound debrided: 100 Instrument Used: 7mm curette Tissue Removed: Slough and devitalized tissue Severity: Fat Layer Exposed Amount of bleeding with debridement: Mild Bleeding Controlled with: Pressure Patient tolerated procedure: Patient tolerated procedure well - Additional Wound Wound debrided: Right hip ulcer Laterality: Right Wound Grade/Stage: Stage IV Type of Debridement: Excisional debridement Anesthesia Used: 4% Lidocaine Solution, Cetacaine Depth: in the subcutaneous layer, to muscle Percentage of wound debrided: 100 Instrument Used: 7mm curette Tissue Removed: Slough and devitalized tissue Severity: Fat Layer Exposed Amount of bleeding with debridement: Mild Bleeding Controlled with: Pressure Patient tolerated procedure: Patient tolerated procedure well Assessment/Plan Active Problems 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 Wound VAC applied to the right hip at 150 mmHg negative pressure, with special instructions to pack 1:00 undermining with foam. Aquacel dressing applied to the right ankle, and right foot. Given the duration of the wound and failure of the wound to respond to standard wound care, we applied for advanced skin substitutes and were approved for epifix. Epifix #1 applied to the right lateral leg ulcer, 100% of the product was used. Epifix was covered with Adaptic and secured with Steri- Strips. Unna boot applied to right lower extremity. 3M wrap applied to the left lower extremity. Unna boot and 3M wrap are to be left in place for 1 week, until next appointment. At home wound-care instructions: The patient is to keep Unna boots clean and dry. If he notices numbness/tingling of the toes or discoloration of the toes, he is to contact the wound healing center or report to the emergency department. The patient's right hip wound VAC is to be changed 3 times weekly. Off-loading: Avoid pressure at ulcer sites. Avoid prolonged standing or dangling of the legs. When seated, keep feet elevated at chest level. If Unna boots begin to feel tight, elevate the feet. A Roho cushion was ordered for the patient to use when utilizing his wheelchair. He was instructed on appropriate offloading when seated/lying down. Frequent position changes were encouraged. Diet: Patient encouraged to increase protein and vitamin C intake while taking caution to avoid high carbohydrate and/or sugar intake. Labs/cultures/imaging: He completed a course of doxycycline on 04/11/2020. Patient's right hip culture from 04/07/2020 was positive for 1+ MRSA (susceptible to Bactrim), and he was started on Bactrim by his PCP on 04/11/20. Patient's right lower leg culture from 04/14/2020 was positive for rare MRSA (susceptible to Bactrim). Bactrim was continued. In recent weeks, the patient developed right lower extremity erythema, warmth, and swelling which spread to the left lower extremity as well. Bactrim was discontinued and he was started on Clindamycin 450mg PO TID x 10 days. (Cultures showed susceptibility to clindamycin, and negative for inducible clindamycin resistance.) With initiation of clindamycin, the patient and his caregiver report significant improvement in the erythema and edema of his bilateral lower extremities. Clindamycin was continued for another 7 days. Due to clinical signs of infection, new cultures were collected from the right hip on 04/28/2020, which were positive for 3+ Stenotrophomonas maltophilia and 1+ corynebacterium striatum. Susceptibility studies showed susceptibility of Stenotrophomonas maltophilia to levofloxacin and Bactrim. Anaerobic studies were negative. The patient was started on levofloxacin 750 mg once daily for 7 days. Per his primary care provider, this was not well-tolerated (caused weakness and confusion) and his primary care provider discontinued levofloxacin and started him on Bactrim; side effects resolved with antibiotic change. He has 1 day left of Bactrim, and should complete this course. No further antibiotics are warranted at this time. Patient believes he had a right hip x-ray at [facility]. Records not yet received. Routine baseline labwork (CRP, CMP, CBC D, ESR, prealbumin) was significant for the following: CRP 10.1 (H), glucose 123 (H), normal serum creatinine, estimated GFR 81.4, ESR 103 (H), RBC 3.46 (L), hemoglobin 10.5 (L), hematocrit 31.2 (L). ABIs were done in office and were normal. Follow-up: Return to clinic in 1 week for re-evaluation. Return sooner or report to the emergency room should symptoms worsen, or new symptoms arise. We have discussed in great detail the clinical signs of infection or worsening overall condition and emphasized the importance of seeking emergency medical care should these occur. Note: [employer] speech recognition jig and fixture maker software was used to create portions of this document. Sound-alike and misspelled words, as well as other jig and fixture maker errors may be contained in the documentation. Multi Select Codes - Integumentary Integumentary CPT Codes: 72641 Berna subq tissue 20 sq cm/<, 07078 Berna musc/fascia 20 sq cm/<, 78742 Skin sub graft trnk/arm/leg
[2020-05-26 10:32] VITALS: BP 137/69; PULSE 82; RESP 16; TEMP 36.2; BMI 20.8
--- NOTE | 2020-05-26 12:45 | PN.PCM_ITS ---
(1) Diabetic ulcer of right lower leg Status: Chronic Code(s): E11.622 - Type 2 diabetes mellitus with other skin ulcer; L97.919 - Non-pressure chronic ulcer of unspecified part of right lower leg with unspecified severity (2) Diabetic ulcer of right foot Status: Chronic Code(s): E11.621 - Type 2 diabetes mellitus with foot ulcer; L97.519 - Non-pressure chronic ulcer of other part of right foot with unspecified severity (3) Diabetic ulcer of right ankle Status: Chronic Code(s): E11.622 - Type 2 diabetes mellitus with other skin ulcer; L97.319 - Non-pressure chronic ulcer of right ankle with unspecified severity (4) Diabetes mellitus type 2 in nonobese Status: Chronic Code(s): E11.9 - Type 2 diabetes mellitus without complications (5) Decubitus ulcer of right hip, stage 4 Status: Chronic Code(s): L89.214 - Pressure ulcer of right hip, stage 4 (6) Cellulitis of right lower extremity Status: Resolved Code(s): L03.115 - Cellulitis of right lower limb (7) Alcoholism Status: Chronic Code(s): F10.20 - Alcohol dependence, uncomplicated (8) Bipolar disorder Status: Chronic Code(s): F31.9 - Bipolar disorder, unspecified (9) Hyperlipidemia Status: Chronic Code(s): E78.5 - Hyperlipidemia, unspecified (10) Hypertension Status: Chronic Code(s): I10 - Essential (primary) hypertension Type of Wound Date of Service: 05/26/20 Chief Complaint: Ulcers of right foot, right ankle, right lateral leg, and right hip History of Wound: The patient presents to the wound healing center today, 04/07/2020, for an initial evaluation of right lower extremity ulcers of the foot, ankle, lateral leg and hip. He has a past medical history significant for type 2 diabetes mellitus, hypertension, hyperlipidemia, anemia, tobacco use and alcoholism. He states he has been sober for about 4 months. He no longer takes Metformin, and states this was discontinued due to causing renal insufficiency. He states his diabetes is currently managed with diet and exercise, though he has been not unable to exercise in recent months. He states that in December he suffered a fall and laid on the ground for 5 days, during which time he developed these ulcers. He reports subsequent impaired movement and sensation of his right lower extremity from the mid lower leg to his toes. He was admitted to a detention following hospitalization, and was receiving wound debridement approximately every 2 weeks. Santyl was used on the ulcers of his right lower leg, ankle and foot. A wound VAC was used for his right hip ulcer. He was discharged from the detention on 04/03/2020, at which time the wound VAC was discontinued. Since 04/03/2020, the patient has been using wet to dry gauze dressings to the right hip daily. He is receiving home health care from [facility]. He reports he is able to ambulate with the use of a walker, and also uses a wheelchair at times. He denies any fever or chills. He states there was a concern for infection in his right lateral leg ulcer, and he was started on doxycycline, which he is currently taking. He reports occasional nausea, but denies vomiting or diarrhea. He also reports a decreased appetite. He denies any recent copious, purulent, or foul-smelling drainage from his ulcers. Progress of Wound: The patient has been using wound VAC to his right hip ulcer, and is tolerating this well. His right hip ulcer has decreased in size this week, and tunneling is improved in depth. There is no foul-smelling drainage from his right hip ulcer today. He received Epifix #1 to his right leg ulcer last week and tolerated this well. He has been using Aquacel Ag to the ulcers of his right foot and ankle. He denies any foul-smelling drainage from these ulcers. The erythema and swelling of his bilateral lower extremities is significantly improved. The patient denies any fever or chills. He completed a course of doxycycline on 04/11/2020. Patient's right hip culture from 04/07/2020 was positive for 1+ MRSA (susceptible to Bactrim), and he was started on Bactrim by his PCP on 04/11/20. Patient's right lower leg culture from 04/14/2020 was positive for rare MRSA (susceptible to Bactrim). Bactrim was continued. He then developed right lower extremity erythema, warmth, and swelling which spread to the left lower extremity as well. Bactrim was discontinued and he was started on Clindamycin 450mg PO TID x 10 days. (Cultures showed susceptibility to clindamycin, and negative for inducible clindamycin resistance.). With initiation of clindamycin, the patient and his caregiver reported significant improvement in the erythema and edema of his bilateral lower extremities. His most recent wound culture revealed 3+ stenotrophomonas maltophilia susceptible to levofloxacin and Bactrim and 1+ corynebacterium striatum. Anaerobic studies were negative. Levofloxacin was not tolerated (caused weakness and confusion, per patient's PCP) and his PCP changed his antibiotic to Bactrim and his symptoms resolved. He has completed his course of Bactrim. - Physical Exam Vital Signs Temp Pulse Resp BP 97.1 F L 82 16 137/69 H 05/26/20 10:32 05/26/20 10:32 05/26/20 10:32 05/26/20 10:32 General: Alert, Cooperative, No apparent distress HEENT: Atraumatic, Normocephalic Oral: Moist Mucosa Lungs: Normal air movement Extremities: No clubbing, No cyanosis, No edema, Capillary Refill Less than 3 Seconds, Peripheral Pulses Normal Skin: No rashes - cellulitis resolved, Ulcer/ Wound - Stage IV R hip ulcer, does not probe to bone, undermining present. No malodorous drainage; improved. Ulcers of R lateral leg, R foot, and R ankle with subcu layers exposed, no tunneling or undermining. Small to moderate amount of slough present. No purulent/malodorous drainage Wound Measurements and Assessment WC - Nurse 1 - General Ulcer Measurement Start: 05/19/20 11:43 Freq: Status: Active Protocol: Activity Type Activity Date Activity User E-Sign Co-Sign Detail Recorded Client Recorded Date Recorded By Document 05/26/20 10:32 AK [id number] 05/26/20 10:50 MS 05/26/20 10:32 Wound Center Nurse 1 [Ulcer Assessment] #4 Right Lat Foot -Current Size (cm) - Length 5.6 -Current Size (cm) - Width 1.5 -Current Size (cm) - Depth 0.1 -Total Square Cm 8.40 -Exudate Amt Small -Exudate Type Serosanguineous -Wound Margin Distinct, Outline Attached -Granulation Amt Medium (34-66%) -Granulation Quality Red -Necrosis Amt None Present (0 %) -Necrotic Tissue Type Adherent Slough -Texture (Cammie-wound Skin Appearance) No Abnormality -Moisture (Cammie-wound Skin Appearance No Abnormality ) -Color (Cammie-wound Skin Appearance) No Abnormality -Temperature (Cammie-wound Skin No Abnormality Appearance) (Pt Warm) -Tenderness on Palpation (Cammie-wound Yes Skin Appearance) -Ulcer Cleansing Wound Cleanser -Foul Odor after Cleansing No -Anesthetic Used 4% Lidocaine Solution #3 R Lat LE -Current Size (cm) - Length 0.5 -Current Size (cm) - Width 0.5 -Current Size (cm) - Depth 0.1 -Total Square Cm 0.25 -Exudate Amt Small -Exudate Type Serosanguineous -Wound Margin Distinct, Outline Attached -Granulation Amt Medium (34-66%) -Granulation Quality Red -Slough/Fibrin Yes -Necrosis Amt None Present (0 %) -Necrotic Tissue Type Adherent Slough -Texture (Cammie-wound Skin Appearance) No Abnormality -Moisture (Cammie-wound Skin Appearance No Abnormality ) -Color (Cammie-wound Skin Appearance) No Abnormality -Temperature (Cammie-wound Skin No Abnormality Appearance) (Pt Warm) -Tenderness on Palpation (Cammie-wound No Skin Appearance) -Ulcer Cleansing Wound Cleanser -Foul Odor after Cleansing No -Anesthetic Used 4% Lidocaine Solution #2 R Hip -Current Size (cm) - Length 1.5 -Current Size (cm) - Width 1.7 -Current Size (cm) - Depth 0.3 -Total Square Cm 2.55 -Tunneling No -Undermining/Tunneling Yes -Undermining/Tunneling Starts (O' 1 clock) -Undermining/Tunneling Ends (O'clock) 2 -Exudate Amt Medium -Exudate Type Serosanguineous -Wound Margin Distinct, Outline Attached -Granulation Amt Medium (34-66%) -Granulation Quality Red -Slough/Fibrin Yes -Necrosis Amt Small (1-33%) -Necrotic Tissue Type Adherent Slough -Texture (Cammie-wound Skin Appearance) No Abnormality -Moisture (Cammie-wound Skin Appearance No Abnormality ) -Color (Cammie-wound Skin Appearance) No Abnormality -Temperature (Cammie-wound Skin No Abnormality Appearance) (Pt Warm) -Tenderness on Palpation (Cammie-wound Yes Skin Appearance) -Ulcer Cleansing Wound Cleanser -Foul Odor after Cleansing No -Anesthetic Used 4% Lidocaine Solution #1 R ankle -Current Size (cm) - Length 1.6 -Current Size (cm) - Width 1.1 -Current Size (cm) - Depth 0.3 -Total Square Cm 1.76 -Exudate Amt Small -Exudate Type Serosanguineous -Wound Margin Distinct, Outline Attached -Granulation Amt Medium (34-66%) -Slough/Fibrin Yes -Necrosis Amt None Present (0 %) -Necrotic Tissue Type Adherent Slough -Texture (Cammie-wound Skin Appearance) No Abnormality -Moisture (Cammie-wound Skin Appearance No Abnormality ) -Color (Cammie-wound Skin Appearance) No Abnormality -Ulcer Cleansing Wound Cleanser -Foul Odor after Cleansing No -Anesthetic Used 4% Lidocaine Solution [Edema Assessment] -Right Calf (cm) 29 -Right Ankle (cm) 21 -Left Calf (cm) 30 -Left Ankle (cm) 20 - Nurse 3 - General Ulcer D/C NN Start: 05/19/20 11:43 Freq: Status: Active Protocol: Activity Type Activity Date Activity User E-Sign Co-Sign Detail Recorded Client Recorded Date Recorded By Document 05/26/20 12:05 KR [id number] 05/26/20 12:06 [email or web address] 05/26/20 12:05 Wound Care Nurse 3 [Wound Dressing] #4 Right Lat Foot -Primary Dressing Covered/Secured Dry Gauze with #3 R Lat LE -Primary Dressing Covered/Secured Dry Gauze with #1 R ankle -Primary Dressing Covered/Secured Dry Gauze with [Compression Applied] Right -Multi-Layered Wrap Application Unna Boot - Bilateral ($) -Unna Boots (Bilat) ($) 2 Pain Scale: 0-10 Numeric [Pain] -Is Patient Pain Free? Yes - Visit Discharge [Visit Discharge Information] -Discharge Condition Stable -Ambulatory Status Wheelchair -Transportation Private Auto -Accompanied by grandson Musculoskeletal: Muscle Wasting Psych/Mental Status: Normal Affect, Appropriate Debridement Note Post-Debridement Measurements/Treatment - Nurse 2 - General Ulcer CM Notes Start: 05/19/20 11:43 Freq: Status: Active Protocol: Activity Type Activity Date Activity User E-Sign Co-Sign Detail Recorded Client Recorded Date Recorded By Document 05/19/20 15:39 PL [id number] 05/19/20 16:00 PL 05/19/20 15:39 Wound Center Nurse 2 #4 Right Lat Foot -Time 11:43 -Correct Patient Yes -Correct Side, Site, Position Yes -Correct Procedure Yes -Procedure Performed Yes -Type of Procedure Debridement -Clinical Debridement Subcutaneous -Tissue Removed Subcutaneous -Post Debridement (cm) - Length 0.6 -Post Debridement (cm) - Width 0.7 -Post Debridement (cm) - Depth 0.2 -Total Square (Post) (cm) 0.42 -Area of Debridement (cm) - Length 0.6 -Area of Debridement (cm) - Width 0.7 -Total Square (Area) (cm) 0.42 -Tunneling No -Undermining/Tunneling No -Circular Undermining No -Wound/Ulcer Outcome Not Healed -Ulcer Cleansing Rinsed/ Irrigated with Saline -Foul Odor after Cleansing No -Bioengineered Tissue No -Bleeding Controlled with Pressure -Treatment Response Procedure Tolerated Well -Debridement - Subq, 1st 20sq cm Yes #3 R Lat LE -Time 11:43 -Correct Patient Yes -Correct Side, Site, Position Yes -Correct Procedure Yes -Procedure Performed Yes -Type of Procedure Debridement -Clinical Debridement Subcutaneous -Tissue Removed Subcutaneous -Post Debridement (cm) - Length 5.6 -Post Debridement (cm) - Width 2.3 -Post Debridement (cm) - Depth 0.1 -Total Square (Post) (cm) 12.88 -Area of Debridement (cm) - Length 5.6 -Area of Debridement (cm) - Width 2.3 -Total Square (Area) (cm) 12.88 -Tunneling No -Undermining/Tunneling No -Circular Undermining No -Wound/Ulcer Outcome Not Healed -Ulcer Cleansing Rinsed/ Irrigated with Saline -Foul Odor after Cleansing No -Bioengineered Tissue Yes -Type of Bioengineered Tissue Epifix Mesh -Expiration Date 01/17/25 -Product Lot Number [id number] -Percent Used 100 -Lot number of Saline Used [id number] -Bleeding Controlled with Pressure -Treatment Response Procedure Tolerated Well -Debridement - Subq, 1st 20sq cm No -Apply Skin Sub - 1st 25 sq cm - Legs 1 -Epifix Mesh (per sq cm) 11 #2 R Hip -Time 11:43 -Correct Patient Yes -Correct Side, Site, Position Yes -Correct Procedure Yes -Procedure Performed Yes -Type of Procedure Debridement -Clinical Debridement Muscle / Fascia -Tissue Removed Epidermis, Dermis, Subcutaneous, Muscle -Post Debridement (cm) - Length 1.4 -Post Debridement (cm) - Width 2.5 -Post Debridement (cm) - Depth 2.5 -Total Square (Post) (cm) 3.50 -Area of Debridement (cm) - Length 1.4 -Area of Debridement (cm) - Width 2.5 -Total Square (Area) (cm) 3.50 -Tunneling No -Tunneling Position (O'clock) 1 -Tunneling Distance (cm) 4.5 -Undermining/Tunneling No -Circular Undermining No -Wound/Ulcer Outcome Not Healed -Ulcer Cleansing Rinsed/ Irrigated with Saline -Foul Odor after Cleansing No -Bioengineered Tissue No -Bleeding Controlled with Pressure -Treatment Response Procedure Tolerated Well -Debridement - Muscle / Fascia, 1st Yes 20sq cm #1 R ankle -Time 11:43 -Correct Patient Yes -Correct Side, Site, Position Yes -Correct Procedure Yes -Procedure Performed Yes -Type of Procedure Debridement -Clinical Debridement Subcutaneous -Tissue Removed Subcutaneous -Post Debridement (cm) - Length 1.1 -Post Debridement (cm) - Width 0.8 -Post Debridement (cm) - Depth 0.3 -Total Square (Post) (cm) 0.88 -Area of Debridement (cm) - Length 1.1 -Area of Debridement (cm) - Width 0.8 -Total Square (Area) (cm) 0.88 -Tunneling No -Undermining/Tunneling No -Circular Undermining No -Wound/Ulcer Outcome Not Healed -Ulcer Cleansing Rinsed/ Irrigated with Saline -Foul Odor after Cleansing No -Bioengineered Tissue No -Debridement - Subq, 1st 20sq cm No Pain Scale: 0-10 Numeric Is Patient Pain Free? Yes WC - Nurse 3 - General Ulcer D/C NN Start: 05/19/20 11:43 Freq: Status: Active Protocol: Activity Type Activity Date Activity User E-Sign Co-Sign Detail Recorded Client Recorded Date Recorded By Document 05/19/20 15:39 PL [id number] 05/19/20 16:00 PL Document 05/26/20 12:05 KR [id number] 05/26/20 12:06 KR 05/19/20 05/26/20 15:39 12:05 Pain Scale: 0-10 Numeric Is Patient Pain Free? Yes Yes Wound Care Nurse 3 #4 Right Lat Foot -Primary Dressing Covered/Secured with Dry Gauze, Dry Gauze Secured with Tape #3 R Lat LE -Primary Dressing Covered/Secured with Dry Gauze, Dry Gauze Secured with Tape #2 R Hip -Ulcer Cleansing Rinsed/ Irrigated with Saline -Foul Odor after Cleansing No -Negative Pressure Wound Therapy Continue -Setting (mmHg) 150 -Negative Pressure is Continuous -NPWT Application Charge ($) NPWT </= 50 sq cm #1 R ankle -Ulcer Cleansing Rinsed/ Irrigated with Saline -Foul Odor after Cleansing No -Primary Dressing Covered/Secured with Dry Gauze, Dry Gauze Secured with Tape Right -Multi-Layered Wrap Application Unna Boot - Unna Boot - Right ($) Bilateral ($) -Unna Boots (Bilat) ($) 2 Left -Multi-Layered Wrap Application Multi-Layer Comp - Left ($) WC - Visit Discharge Discharge Condition Stable Stable Ambulatory Status Wheelchair Wheelchair Transportation Private Auto Private Auto Accompanied by devan Clinical Summary of Care Provided Yes Wound debrided: Right foot ulcer Laterality: Right Wound Grade/Stage: Mendez 1 Type of Debridement: Excisional debridement Anesthesia Used: 4% Lidocaine Solution, Cetacaine Depth: in the subcutaneous layer Percentage of wound debrided: 100 Instrument Used: 3mm curette Tissue Removed: Slough and devitalized tissue Severity: Fat Layer Exposed Amount of bleeding with debridement: Mild Bleeding Controlled with: Pressure Patient tolerated procedure well - Additional Wound Wound debrided: Right ankle ulcer Laterality: Right Wound Grade/Stage: Mendez 1 Type of Debridement: Excisional debridement Anesthesia Used: 4% Lidocaine Solution, Cetacaine Depth: in the subcutaneous layer Percentage of wound debrided: 100 Instrument Used: 5mm curette Tissue Removed: Slough and devitalized tissue Severity: Fat Layer Exposed Amount of bleeding with debridement: Mild Bleeding Controlled with: Pressure Patient tolerated procedure: Patient tolerated procedure well - Additional Wound Wound debrided: Right lateral leg ulcer Laterality: Right Wound Grade/Stage: Stage II Type of Debridement: Excisional debridement Anesthesia Used: 4% Lidocaine Solution, Cetacaine Depth: in the subcutaneous layer Percentage of wound debrided: 100 Instrument Used: 7mm curette Tissue Removed: Slough and devitalized tissue Severity: Fat Layer Exposed Amount of bleeding with debridement: Mild Bleeding Controlled with: Pressure Patient tolerated procedure: Patient tolerated procedure well - Additional Wound Wound debrided: Right hip ulcer Laterality: Right Wound Grade/Stage: Stage IV Type of Debridement: Excisional debridement Anesthesia Used: 4% Lidocaine Solution, Cetacaine Depth: in the subcutaneous layer, to muscle Percentage of wound debrided: 100 Instrument Used: 7mm curette Tissue Removed: Slough and devitalized tissue Severity: Fat Layer Exposed Amount of bleeding with debridement: Mild Bleeding Controlled with: Pressure Patient tolerated procedure: Patient tolerated procedure well Assessment/Plan Active Problems 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 Wound VAC applied to the right hip at 150 mmHg negative pressure, with special instructions to pack 1:00 undermining with foam. Aquacel Ag dressing applied to the right ankle, and right foot. Given the duration of the wound and failure of the wound to respond to standard wound care, we applied for advanced skin substitutes and were approved for epifix. Epifix #2 applied to the right lateral leg ulcer, 100% of the product was used. Epifix was covered with Adaptic touch and secured with Steri-Strips. Unna boot applied to lower extremities. (3M wrap was not well tolerated last week due to loosening, and the patient removed the outer layer.) Unna boots are to be left in place for 1 week, until next appointment. At home wound-care instructions: The patient is to keep Unna boots clean and dry. If he notices numbness/tingling of the toes or discoloration of the toes, he is to contact the wound healing center or report to the emergency department. The patient's right hip wound VAC is to be changed 3 times weekly. Off-loading: Avoid pressure at ulcer sites. Avoid prolonged standing or dangling of the legs. When seated, keep feet elevated at chest level. If Unna boots begin to feel tight, elevate the feet. A Roho cushion was ordered for the patient to use when utilizing his wheelchair. He was instructed on appropriate offloading when seated/lying down. Frequent position changes were encouraged. Diet: Patient encouraged to increase protein and vitamin C intake while taking caution to avoid high carbohydrate and/or sugar intake. Labs/cultures/imaging: He completed a course of doxycycline on 04/11/2020. Patient's right hip culture from 04/07/2020 was positive for 1+ MRSA (susceptible to Bactrim), and he was started on Bactrim by his PCP on 04/11/20. Patient's right lower leg culture from 04/14/2020 was positive for rare MRSA (susceptible to Bactrim). Bactrim was continued. He later developed right lower extremity erythema, warmth, and swelling which spread to the left lower extremity as well. Bactrim was discontinued and he was started on Clindamycin 450mg PO TID x 10 days. (Cultures showed susceptibility to clindamycin, and negative for inducible clindamycin resistance.) With initiation of clindamycin, the patient and his caregiver reported significant improvement in the erythema and edema of his bilateral lower extremities. Clindamycin was continued for another 7 days. Due to cl inical signs of infection, new cultures were collected from the right hip on 04/28/2020, which were positive for 3+ Stenotrophomonas maltophilia and 1+ corynebacterium striatum. Susceptibility studies showed susceptibility of Stenotrophomonas maltophilia to levofloxacin and Bactrim. Anaerobic studies were negative. The patient was started on levofloxacin 750 mg once daily for 7 days. Per his primary care provider, this was not well-tolerated (caused weakness and confusion) and his primary care provider discontinued levofloxacin and started him on Bactrim; side effects resolved with antibiotic change. He completed his course of Bactrim. No further antibiotics are warranted at this time. Patient believes he had a right hip x-ray at [facility]. Records not yet received. Routine baseline labwork (CRP, CMP, CBC D, ESR, prealbumin) was significant for the following: CRP 10.1 (H), glucose 123 (H), normal serum creatinine, estimated GFR 81.4, ESR 103 (H), RBC 3.46 (L), hemoglo bin 10.5 (L), hematocrit 31.2 (L). ABIs were done in office and were normal. Follow-up: Return to clinic in 1 week for re-evaluation. Return sooner or report to the emergency room should symptoms worsen, or new symptoms arise. We have discussed in great detail the clinical signs of infection or worsening overall condition and emphasized the importance of seeking emergency medical care should these occur. Note: invi speech recognition theatrical rigger software was used to create portions of this document. Sound-alike and misspelled words, as well as other theatrical rigger errors may be contained in the documentation. Multi Select Codes - Integumentary Integumentary CPT Codes: 61230 Berna subq tissue 20 sq cm/<, 72004 Berna musc/fascia 20 sq cm/<, 68759 Skin sub graft trnk/arm/leg
[2020-06-02 10:38] VITALS: BP 142/75; PULSE 85; TEMP 36.6; BMI 20.8
--- NOTE | 2020-06-02 13:50 | PN.PCM_ITS ---
(1) Diabetic ulcer of right lower leg Status: Chronic Code(s): E11.622 - Type 2 diabetes mellitus with other skin ulcer; L97.919 - Non-pressure chronic ulcer of unspecified part of right lower leg with unspecified severity (2) Diabetic ulcer of right foot Status: Chronic Code(s): E11.621 - Type 2 diabetes mellitus with foot ulcer; L97.519 - Non-pressure chronic ulcer of other part of right foot with unspecified severity (3) Diabetic ulcer of right ankle Status: Chronic Code(s): E11.622 - Type 2 diabetes mellitus with other skin ulcer; L97.319 - Non-pressure chronic ulcer of right ankle with unspecified severity (4) Diabetes mellitus type 2 in nonobese Status: Chronic Code(s): E11.9 - Type 2 diabetes mellitus without complications (5) Decubitus ulcer of right hip, stage 4 Status: Chronic Code(s): L89.214 - Pressure ulcer of right hip, stage 4 (6) Cellulitis of right lower extremity Status: Resolved Code(s): L03.115 - Cellulitis of right lower limb (7) Alcoholism Status: Chronic Code(s): F10.20 - Alcohol dependence, uncomplicated (8) Bipolar disorder Status: Chronic Code(s): F31.9 - Bipolar disorder, unspecified (9) Hyperlipidemia Status: Chronic Code(s): E78.5 - Hyperlipidemia, unspecified (10) Hypertension Status: Chronic Code(s): I10 - Essential (primary) hypertension Type of Wound Date of Service: 06/02/20 Chief Complaint: Ulcers of right foot, right ankle, right lateral leg, and right hip History of Wound: The patient presents to the wound healing center today, 04/07/2020, for an initial evaluation of right lower extremity ulcers of the foot, ankle, lateral leg and hip. He has a past medical history significant for type 2 diabetes mellitus, hypertension, hyperlipidemia, anemia, tobacco use and alcoholism. He states he has been sober for about 4 months. He no longer takes Metformin, and states this was discontinued due to causing renal insufficiency. He states his diabetes is currently managed with diet and exercise, though he has been not unable to exercise in recent months. He states that in December he suffered a fall and laid on the ground for 5 days, during which time he developed these ulcers. He reports subsequent impaired movement and sensation of his right lower extremity from the mid lower leg to his toes. He was admitted to a skilled nursing following hospitalization, and was receiving wound debridement approximately every 2 weeks. Santyl was used on the ulcers of his right lower leg, ankle and foot. A wound VAC was used for his right hip ulcer. He was discharged from the skilled nursing on 04/03/2020, at which time the wound VAC was discontinued. Since 04/03/2020, the patient has been using wet to dry gauze dressings to the right hip daily. He is receiving home health care from [facility]. He reports he is able to ambulate with the use of a walker, and also uses a wheelchair at times. He denies any fever or chills. He states there was a concern for infection in his right lateral leg ulcer, and he was started on doxycycline, which he is currently taking. He reports occasional nausea, but denies vomiting or diarrhea. He also reports a decreased appetite. He denies any recent copious, purulent, or foul-smelling drainage from his ulcers. Progress of Wound: The patient has been using wound VAC to his right hip ulcer, and is tolerating this well. His right hip ulcer has decreased in size this week, though tunneling remains unchanged. There is no foul-smelling drainage from his right hip ulcer today. He received Epifix #2 to his right leg ulcer last week and tolerated this well. He has been using Aquacel Ag to the ulcers of his right foot and ankle. His Right leg, right ankle, and right foot ulcers are improved in size this week. He denies any foul-smelling drainage from these ulcers. The erythema and swelling of his bilateral lower extremities is significantly improved. The patient denies any fever or chills. He completed a course of doxycycline on 04/11/2020. Patient's right hip culture from 04/07/2020 was positive for 1+ MRSA (susceptible to Bactrim), and he was started on Bactrim by his PCP on 04/11/20. Patient's right lower leg culture from 04/14/2020 was positive for rare MRSA (susceptible to Bactrim). Bactrim was continued. He then developed right lower extremity erythema, warmth, and swelling which spread to the left lower extremity as well. Bactrim was discontinued and he was started on Clindamycin 450mg PO TID x 10 days. (Cultures showed susceptibility to clindamycin, and negative for inducible clindamycin resistance.). With initiation of clindamycin, the patient and his caregiver reported significant improvement in the erythema and edema of his bilateral lower extremities. His most recent wound culture revealed 3+ stenotrophomonas maltophilia susceptible to levofloxacin and Bactrim and 1+ corynebacterium striatum. Anaerobic studies were negative. Levofloxacin was not tolerated (caused weakness and confusion, per patient's PCP) and his PCP changed his antibiotic to Bactrim and his symptoms resolved. He has completed his course of Bactrim. He was diagnosed with a UTI in the past week and was started on doxycycline by his PCP. - Physical Exam Vital Signs Temp Pulse Resp BP 97.9 F 85 16 142/75 H 06/02/20 10:38 06/02/20 10:38 05/26/20 10:32 06/02/20 10:38 General: Alert, Cooperative, No apparent distress HEENT: Atraumatic, Normocephalic Oral: Moist Mucosa Neck: Supple Lungs: Normal air movement Extremities: No clubbing, No cyanosis, No edema, Capillary Refill Less than 3 Seconds, Peripheral Pulses Normal Skin: No rashes, Ulcer/ Wound - Stage IV R hip ulcer, does not probe to bone, undermining/tunneling present. No malodorous drainage. Ulcers of R lateral leg, R foot, and R ankle with subcu layers exposed, no tunneling or undermining. Small amounts of slough present. No purulent/malodorous drainage Wound Measurements and Assessment WC - Nurse 1 - General Ulcer Measurement Start: 05/19/20 11:43 Freq: Status: Active Protocol: Activity Type Activity Date Activity User E-Sign Co-Sign Detail Recorded Client Recorded Date Recorded By Document 06/02/20 10:38 [facility] [id number] 06/02/20 10:50 [facility] 06/02/20 10:38 Wound Center Nurse 1 [Ulcer Assessment] #4 Right Lat Foot -Current Size (cm) - Length 1.4 -Current Size (cm) - Width 0.8 -Current Size (cm) - Depth 0.4 -Total Square Cm 1.12 -Exudate Amt Small -Exudate Type Serosanguineous -Wound Margin Distinct, Outline Attached -Granulation Amt Medium (34-66%) -Granulation Quality Red -Necrosis Amt Medium (34-66%) -Necrotic Tissue Type Adherent Slough -Texture (Cammie-wound Skin Appearance) Assessed, Scarring -Moisture (Cammie-wound Skin Appearance No Abnormality, ) Assessed -Color (Cammie-wound Skin Appearance) No Abnormality, Assessed -Temperature (Cammie-wound Skin No Abnormality Appearance) (Pt Warm) -Tenderness on Palpation (Cammie-wound No Skin Appearance) -Ulcer Cleansing soap and water -Foul Odor after Cleansing No -Anesthetic Used 4% Lidocaine Solution #3 R Lat LE -Current Size (cm) - Length 5 -Current Size (cm) - Width 1.9 -Current Size (cm) - Depth 0.1 -Total Square Cm 9.5 -Date of Last Picture (Recall this 06/02/20 field) -Exudate Amt Medium -Exudate Type Serosanguineous -Wound Margin Distinct, Outline Attached -Granulation Amt Medium (34-66%) -Granulation Quality Red -Necrosis Amt Medium (34-66%) -Necrotic Tissue Type Adherent Slough -Texture (Cammie-wound Skin Appearance) Assessed, Scarring -Moisture (Cammie-wound Skin Appearance No Abnormality, ) Assessed -Color (Cammie-wound Skin Appearance) No Abnormality, Assessed -Temperature (Cammie-wound Skin No Abnormality Appearance) (Pt Warm) -Tenderness on Palpation (Cammie-wound No Skin Appearance) -Ulcer Cleansing soap and water -Anesthetic Used 4% Lidocaine Solution #2 R Hip -Current Size (cm) - Length 1 -Current Size (cm) - Width 1.3 -Current Size (cm) - Depth 1.6 -Total Square Cm 1.3 -Tunneling Position (O'clock) 1 -Tunneling Distance (cm) 3.4 -Exudate Amt Medium -Exudate Type Serosanguineous -Wound Margin Distinct, Outline Attached -Granulation Amt Large (67-100%) -Granulation Quality Red -Necrosis Amt None Present (0 %) -Texture (Cammie-wound Skin Appearance) Assessed, Scarring -Color (Cammie-wound Skin Appearance) No Abnormality, Assessed -Temperature (Cammie-wound Skin No Abnormality Appearance) (Pt Warm) -Tenderness on Palpation (Cammie-wound No Skin Appearance) -Ulcer Cleansing soap and water -Anesthetic Used 4% Lidocaine Solution #1 R ankle -Current Size (cm) - Length 0.1 -Current Size (cm) - Width 0.1 -Current Size (cm) - Depth 0.1 -Total Square Cm 0.01 -Exudate Amt Small -Exudate Type Serosanguineous -Wound Margin Distinct, Outline Attached -Granulation Amt Medium (34-66%) -Granulation Quality Red -Necrosis Amt Medium (34-66%) -Necrotic Tissue Type Adherent Slough -Texture (Cammie-wound Skin Appearance) Assessed, Scarring -Moisture (Cammie-wound Skin Appearance No Abnormality, ) Assessed -Color (Cammie-wound Skin Appearance) No Abnormality, Assessed -Temperature (Cammie-wound Skin No Abnormality Appearance) (Pt Warm) -Tenderness on Palpation (Cammie-wound No Skin Appearance) -Ulcer Cleansing soap and water -Foul Odor after Cleansing No -Anesthetic Used 4% Lidocaine Solution [Edema Assessment] -Right Calf (cm) 28.6 -Right Ankle (cm) 20.4 -Left Calf (cm) 30.1 -Left Ankle (cm) 18.8 WC - Nurse 2 - General Ulcer CM Notes Start: 05/19/20 11:43 Freq: Status: Active Protocol: Activity Type Activity Date Activity User E-Sign Co-Sign Detail Recorded Client Recorded Date Recorded By Document 06/02/20 13:17 PL [id number] 06/02/20 13:23 PL 06/02/20 13:17 Wound Center Nurse 2 [Procedure/Treatment] #4 Right Lat Foot -Time 10:58 -Correct Patient Yes -Correct Side, Site, Position Yes -Correct Procedure Yes -Procedure Performed Yes -Type of Procedure Debridement -Clinical Debridement Subcutaneous -Tissue Removed Subcutaneous -Post Debridement (cm) - Length 0.3 -Post Debridement (cm) - Width 0.4 -Post Debridement (cm) - Depth 0.1 -Total Square (Post) (cm) 0.12 -Area of Debridement (cm) - Length 0.3 -Area of Debridement (cm) - Width 0.4 -Total Square (Area) (cm) 0.12 -Tunneling No -Undermining/Tunneling No -Circular Undermining No -Wound/Ulcer Outcome Not Healed -Ulcer Cleansing Rinsed/ Irrigated with Saline -Foul Odor after Cleansing No -Bioengineered Tissue No -Debridement - Subq, 1st 20sq cm No #3 R Lat LE -Time 10:58 -Correct Patient Yes -Correct Side, Site, Position Yes -Correct Procedure Yes -Procedure Performed Yes -Type of Procedure Debridement -Clinical Debridement Subcutaneous -Tissue Removed Subcutaneous -Post Debridement (cm) - Length 4.2 -Post Debridement (cm) - Width 1.2 -Post Debridement (cm) - Depth 0.1 -Total Square (Post) (cm) 5.04 -Area of Debridement (cm) - Length 4.2 -Area of Debridement (cm) - Width 1.2 -Total Square (Area) (cm) 5.04 -Tunneling No -Undermining/Tunneling No -Circular Undermining No -Wound/Ulcer Outcome Not Healed -Ulcer Cleansing Rinsed/ Irrigated with Saline -Foul Odor after Cleansing No -Bioengineered Tissue Yes -Type of Bioengineered Tissue Epifix Mesh -Expiration Date 03/20/23 -Product Lot Number [id number] -Percent Used 100 -Lot number of Saline Used [id number] -Bleeding Controlled with Pressure -Treatment Response Procedure Tolerated Well -Debridement - Subq, 1st 20sq cm No -Apply Skin Sub - 1st 25 sq cm - Legs 1 -Epifix Mesh (per sq cm) 11 #2 R Hip -Time 10:58 -Correct Patient Yes -Correct Side, Site, Position Yes -Correct Procedure Yes -Procedure Performed Yes -Type of Procedure Debridement -Clinical Debridement Muscle / Fascia -Tissue Removed Subcutaneous, Muscle -Post Debridement (cm) - Length 1.2 -Post Debridement (cm) - Width 1.7 -Post Debridement (cm) - Depth 2.2 -Total Square (Post) (cm) 2.04 -Area of Debridement (cm) - Length 1.2 -Area of Debridement (cm) - Width 1.7 -Total Square (Area) (cm) 2.04 -Undermining/Tunneling Yes -Undermining/Tunneling Starts (O' 1 clock) -Undermining/Tunneling Ends (O'clock) 3 -Maximum Distance (cm) 3.4 -Wound/Ulcer Outcome Not Healed -Ulcer Cleansing Rinsed/ Irrigated with Saline -Foul Odor after Cleansing No -Bioengineered Tissue No -Debridement - Muscle / Fascia, 1st Yes 20sq cm #1 R ankle -Time 10:58 -Correct Patient Yes -Correct Side, Site, Position Yes -Correct Procedure Yes -Procedure Performed Yes -Type of Procedure Debridement -Clinical Debridement Subcutaneous -Tissue Removed Subcutaneous -Post Debridement (cm) - Length 1.1 -Post Debridement (cm) - Width 1.0 -Post Debridement (cm) - Depth 0.2 -Total Square (Post) (cm) 1.10 -Area of Debridement (cm) - Length 1.1 -Area of Debridement (cm) - Width 1.0 -Total Square (Area) (cm) 1.10 -Tunneling No -Undermining/Tunneling No -Circular Undermining No -Wound/Ulcer Outcome Not Healed -Ulcer Cleansing Rinsed/ Irrigated with Saline -Foul Odor after Cleansing No -Bioengineered Tissue No -Debridement - Subq, 1st 20sq cm No [See Physician Procedure note for Specifics] Pain Scale: 0-10 Numeric [Pain] -Is Patient Pain Free? Yes - Nurse 3 - General Ulcer D/C NN Start: 05/19/20 11:43 Freq: Status: Active Protocol: Activity Type Activity Date Activity User E-Sign Co-Sign Detail Recorded Client Recorded Date Recorded By Document 06/02/20 11:49 [facility] [id number] 06/02/20 11:52 [facility] 06/02/20 11:49 Wound Care Nurse 3 [Wound Dressing] #4 Right Lat Foot -Other Dressing epifix -Other Covering unna per kr manager field service #3 R Lat LE -Other Dressing epifix -Other Covering unna per kr manager field service #2 R Hip -Negative Pressure Wound Therapy Continue -Setting (mmHg) 125 -Negative Pressure is Continuous -Other Dressing epifix -NPWT Application Charge ($) NPWT </= 50 sq cm #1 R ankle -Ulcer Cleansing Rinsed/ Irrigated with Saline -Foul Odor after Cleansing No -Other Dressing epifix -Other Covering unna per kr manager field service [Compression Applied] BLE -Multi-Layered Wrap Application Unna Boot - Bilateral ($) -Unna Boots (Bilat) ($) 1 -Other PER KR ASSISTANT CORPORATE CONTROLLER [Post Procedure Tolerated] -Treatment Response Procedure Tolerated Well Pain Scale: 0-10 Numeric [Pain] -Is Patient Pain Free? Yes - Visit Discharge [Visit Discharge Information] -Discharge Condition Stable -Ambulatory Status Wheelchair -Transportation Private Auto -Accompanied by GR SON [Facility Notification] -Facility Type Home Health Musculoskeletal: Muscle Wasting Psych/Mental Status: Normal Affect, Appropriate Debridement Note Post-Debridement Measurements/Treatment WC - Nurse 2 - General Ulcer CM Notes Start: 05/19/20 11:43 Freq: Status: Active Protocol: Activity Type Activity Date Activity User E-Sign Co-Sign Detail Recorded Client Recorded Date Recorded By Document 05/19/20 15:39 PL [id number] 05/19/20 16:00 PL Document 05/26/20 13:34 PL [id number] 05/26/20 13:40 PL Document 06/02/20 13:17 PL [id number] 06/02/20 13:23 PL 05/19/20 05/26/20 06/02/20 15:39 13:34 13:17 Wound Center Nurse 2 #4 Right Lat Foot -Time 11:43 10:56 10:58 -Correct Patient Yes Yes Yes -Correct Side, Site, Position Yes Yes Yes -Correct Procedure Yes Yes Yes -Procedure Performed Yes Yes Yes -Type of Procedure Debridement Debridement Debridement -Clinical Debridement Subcutaneous Subcutaneous Subcutaneous -Tissue Removed Subcutaneous Subcutaneous Subcutaneous -Post Debridement (cm) - Length 0.6 0.4 0.3 -Post Debridement (cm) - Width 0.7 0.5 0.4 -Post Debridement (cm) - Depth 0.2 0.1 0.1 -Total Square (Post) (cm) 0.42 0.20 0.12 -Area of Debridement (cm) - Length 0.6 0.4 0.3 -Area of Debridement (cm) - Width 0.7 0.5 0.4 -Total Square (Area) (cm) 0.42 0.20 0.12 -Tunneling No No No -Undermining/Tunneling No No No -Circular Undermining No No No -Wound/Ulcer Outcome Not Healed Not Healed Not Healed -Ulcer Cleansing Rinsed/ Rinsed/ Rinsed/ Irrigated with Irrigated with Irrigated with Saline Saline Saline -Foul Odor after Cleansing No No No -Bioengineered Tissue No No No -Bleeding Controlled with Pressure -Treatment Response Procedure Tolerated Well -Debridement - Subq, 1st 20sq cm Yes No No #3 R Lat LE -Time 11:43 10:56 10:58 -Correct Patient Yes Yes Yes -Correct Side, Site, Position Yes Yes Yes -Correct Procedure Yes Yes Yes -Procedure Performed Yes Yes Yes -Type of Procedure Debridement Debridement Debridement -Clinical Debridement Subcutaneous Subcutaneous Subcutaneous -Tissue Removed Subcutaneous Subcutaneous Subcutaneous -Post Debridement (cm) - Length 5.6 5.4 4.2 -Post Debridement (cm) - Width 2.3 2.0 1.2 -Post Debridement (cm) - Depth 0.1 0.1 0.1 -Total Square (Post) (cm) 12.88 10.80 5.04 -Area of Debridement (cm) - Length 5.6 5.4 4.2 -Area of Debridement (cm) - Width 2.3 2.0 1.2 -Total Square (Area) (cm) 12.88 10.80 5.04 -Tunneling No No No -Undermining/Tunneling No No No -Circular Undermining No No No -Wound/Ulcer Outcome Not Healed Not Healed Not Healed -Ulcer Cleansing Rinsed/ Rinsed/ Rinsed/ Irrigated with Irrigated with Irrigated with Saline Saline Saline -Foul Odor after Cleansing No No No -Bioengineered Tissue Yes Yes Yes -Type of Bioengineered Tissue Epifix Mesh Epifix Mesh Epifix Mesh -Expiration Date 01/17/25 01/17/25 03/20/23 -Product Lot Number [id number] -Percent Used 100 100 100 -Lot number of Saline Used [id number] -Bleeding Controlled with Pressure Pressure Pressure -Treatment Response Procedure Procedure Procedure Tolerated Well Tolerated Well Tolerated Well -Debridement - Subq, 1st 20sq cm No No No -Apply Skin Sub - 1st 25 sq cm - Legs 1 1 1 -Epifix Mesh (per sq cm) 11 11 11 #2 R Hip -Time 11:43 10:56 10:58 -Correct Patient Yes Yes Yes -Correct Side, Site, Position Yes Yes Yes -Correct Procedure Yes Yes Yes -Procedure Performed Yes Yes Yes -Type of Procedure Debridement Debridement Debridement -Clinical Debridement Muscle / Fascia Muscle / Fascia Muscle / Fascia -Tissue Removed Epidermis, Epidermis, Subcutaneous, Dermis, Dermis, Muscle Subcutaneous, Subcutaneous, Muscle Muscle -Post Debridement (cm) - Length 1.4 1.4 1.2 -Post Debridement (cm) - Width 2.5 2.0 1.7 -Post Debridement (cm) - Depth 2.5 2.2 2.2 -Total Square (Post) (cm) 3.50 2.80 2.04 -Area of Debridement (cm) - Length 1.4 1.4 1.2 -Area of Debridement (cm) - Width 2.5 2.0 1.7 -Total Square (Area) (cm) 3.50 2.80 2.04 -Tunneling No No -Tunneling Position (O'clock) 1 -Tunneling Distance (cm) 4.5 -Undermining/Tunneling No No Yes -Undermining/Tunneling Starts (O'clock 1 ) -Undermining/Tunneling Ends (O'clock) 3 -Maximum Distance (cm) 3.4 -Circular Undermining No No -Wound/Ulcer Outcome Not Healed Not Healed Not Healed -Ulcer Cleansing Rinsed/ Rinsed/ Rinsed/ Irrigated with Irrigated with Irrigated with Saline Saline Saline -Foul Odor after Cleansing No No No -Bioengineered Tissue No No No -Bleeding Controlled with Pressure -Treatment Response Procedure Tolerated Well -Debridement - Muscle / Fascia, 1st Yes Yes Yes 20sq cm #1 R ankle -Time 11:43 10:56 10:58 -Correct Patient Yes Yes Yes -Correct Side, Site, Position Yes Yes Yes -Correct Procedure Yes Yes Yes -Procedure Performed Yes Yes Yes -Type of Procedure Debridement Debridement Debridement -Clinical Debridement Subcutaneous Subcutaneous Subcutaneous -Tissue Removed Subcutaneous Subcutaneous Subcutaneous -Post Debridement (cm) - Length 1.1 1.3 1.1 -Post Debridement (cm) - Width 0.8 1.2 1.0 -Post Debridement (cm) - Depth 0.3 0.3 0.2 -Total Square (Post) (cm) 0.88 1.56 1.10 -Area of Debridement (cm) - Length 1.1 1.3 1.1 -Area of Debridement (cm) - Width 0.8 1.2 1.0 -Total Square (Area) (cm) 0.88 1.56 1.10 -Tunneling No No No -Undermining/Tunneling No No No -Circular Undermining No No No -Wound/Ulcer Outcome Not Healed Not Healed Not Healed -Ulcer Cleansing Rinsed/ Rinsed/ Rinsed/ Irrigated with Irrigated with Irrigated with Saline Saline Saline -Foul Odor after Cleansing No No No -Bioengineered Tissue No No No -Debridement - Subq, 1st 20sq cm No No No Pain Scale: 0-10 Numeric Is Patient Pain Free? Yes Yes Yes - Nurse 3 - General Ulcer D/C NN Start: 05/19/20 11:43 Freq: Status: Active Protocol: Activity Type Activity Date Activity User E-Sign Co-Sign Detail Recorded Client Recorded Date Recorded By Document 05/19/20 15:39 PL [id number] 05/19/20 16:00 PL Document 05/26/20 12:05 KR [id number] 05/26/20 12:06 KR Document 06/02/20 11:49 [facility] [id number] 06/02/20 11:52 [facility] 05/19/20 05/26/20 06/02/20 15:39 12:05 11:49 Pain Scale: 0-10 Numeric Is Patient Pain Free? Yes Yes Yes Wound Care Nurse 3 #4 Right Lat Foot -Other Dressing epifix -Primary Dressing Covered/Secured with Dry Gauze, Dry Gauze Secured with Tape -Other Covering unna per kr manager field service #3 R Lat LE -Other Dressing epifix -Primary Dressing Covered/Secured with Dry Gauze, Dry Gauze Secured with Tape -Other Covering unna per kr manager field service #2 R Hip -Ulcer Cleansing Rinsed/ Irrigated with Saline -Foul Odor after Cleansing No -Negative Pressure Wound Therapy Continue Continue -Setting (mmHg) 150 125 -Negative Pressure is Continuous Continuous -Other Dressing epifix -NPWT Application Charge ($) NPWT </= 50 sq NPWT </= 50 sq cm cm #1 R ankle -Ulcer Cleansing Rinsed/ Rinsed/ Irrigated with Irrigated with Saline Saline -Foul Odor after Cleansing No No -Other Dressing epifix -Primary Dressing Covered/Secured with Dry Gauze, Dry Gauze Secured with Tape -Other Covering unna per kr manager field service BLE -Multi-Layered Wrap Application Unna Boot - Bilateral ($) -Unna Boots (Bilat) ($) 1 -Other PER KR ASSISTANT CORPORATE CONTROLLER Right -Multi-Layered Wrap Application Unna Boot - Unna Boot - Right ($) Bilateral ($) -Unna Boots (Bilat) ($) 2 Left -Multi-Layered Wrap Application Multi-Layer Comp - Left ($) Treatment Response Procedure Tolerated Well WC - Visit Discharge Discharge Condition Stable Stable Stable Ambulatory Status Wheelchair Wheelchair Wheelchair Transportation Private Auto Private Auto Private Auto Accompanied by devan BRAGG Clinical Summary of Care Provided Yes Facility Type Home Health Wound debrided: Right foot ulcer Laterality: Right Wound Grade/Stage: Mendez 1 Type of Debridement: Excisional debridement Anesthesia Used: 4% Lidocaine Solution Depth: in the subcutaneous layer Percentage of wound debrided: 100 Instrument Used: 3mm curette Tissue Removed: Slough and devitalized tissue Severity: Fat Layer Exposed Amount of bleeding with debridement: Mild Bleeding Controlled with: Pressure Patient tolerated procedure well - Additional Wound Wound debrided: Right ankle ulcer Laterality: Right Wound Grade/Stage: Mendez 1 Type of Debridement: Excisional debridement Anesthesia Used: 4% Lidocaine Solution Depth: in the subcutaneous layer Percentage of wound debrided: 100 Instrument Used: 5mm curette Tissue Removed: Slough and devitalized tissue Severity: Fat Layer Exposed Amount of bleeding with debridement: Mild Bleeding Controlled with: Pressure Patient tolerated procedure: Patient tolerated procedure well - Additional Wound Wound debrided: Right lateral leg ulcer Laterality: Right Wound Grade/Stage: Stage II Type of Debridement: Excisional debridement Anesthesia Used: 4% Lidocaine Solution, Cetacaine Depth: in the subcutaneous layer Percentage of wound debrided: 100 Instrument Used: 7mm curette Tissue Removed: Slough and devitalized tissue Severity: Fat Layer Exposed Amount of bleeding with debridement: Mild Bleeding Controlled with: Compression and gauze Patient tolerated procedure: Patient did not tolerate procedure well - Additional Wound Wound debrided: Right hip ulcer Laterality: Right Wound Grade/Stage: Stage IV Type of Debridement: Excisional debridement Anesthesia Used: 4% Lidocaine Solution, Cetacaine Depth: in the subcutaneous layer, to muscle Percentage of wound debrided: 100 Instrument Used: 5mm curette Tissue Removed: Slough and devitalized tissue Severity: Fat Layer Exposed Amount of bleeding with debridement: Mild Bleeding Controlled with: Pressure Patient tolerated procedure: Patient did not tolerate procedure well Assessment/Plan Active Problems 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 Wound VAC applied to the right hip at 125 mmHg negative pressure, with special instructions to pack 2:00 tunnel with foam. Aquacel Ag dressing applied to the right ankle, and right foot. Given the duration of the wound and failure of the wound to respond to standard wound care, we applied for advanced skin substitutes and were approved for epifix. Epifix #3 applied to the right lateral leg ulcer, 100% of the product was used. Epifix was covered with Adaptic touch and secured with Steri-Strips. Unna boots applied to lower extremities. (3M wrap was previously not well tolerated.) Unna boots are to be left in place for 1 week, until next appointment. At home wound-care instructions: The patient is to keep Unna boots clean and dry. If he notices numbness/tingling of the toes or discoloration of the toes, he is to contact the wound healing center or report to the emergency department. The patient's right hip wound VAC is to be changed 3 times weekly. Off-loading: Avoid pressure at ulcer sites. Avoid prolonged standing or dangling of the legs. When seated, keep feet elevated at chest level. If Unna boots begin to feel tight, elevate the feet. A Roho cushion was ordered for the patient to use when utilizing his wheelchair. He was instructed on appropriate offloading when seated/lying down. Frequent position changes were encouraged. Diet: Patient encouraged to increase protein and vitamin C intake while taking caution to avoid high carbohydrate and/or sugar intake. Labs/cultures/imaging: He completed a course of doxycycline on 04/11/2020. Patient's right hip culture from 04/07/2020 was positive for 1+ MRSA (susceptible to Bactrim), and he was started on Bactrim by his PCP on 04/11/20. Patient's right lower leg culture from 04/14/2020 was positive for rare MRSA (susceptible to Bactrim). Bactrim was continued. He later developed right lower extremity erythema, warmth, and swelling which spread to the left lower extremity as well. Bactrim was discontinued and he was started on Clindamycin 450mg PO TID x 10 days. (Cultures showed susceptibility to clindamycin, and negative for inducible clindamycin resistance.) With initiation of clindamycin, the patient and his caregiver reported significant improvement in the erythema and edema of his bilateral lower extremities. Clindamycin was continued for another 7 days. Due to clinical signs of infection, new cultures were collected from the right hip on 04/28/2020, which were positive for 3+ Stenotrophomonas maltophilia and 1+ corynebacterium striatum. Susceptibility studies showed susceptibility of Stenotrophomonas maltophilia to levofloxacin and Bactrim. Anaerobic studies were negative. The patient was started on levofloxacin 750 mg once daily for 7 days. Per his primary care provider, this was not well-tolerated (caused weakness and confusion) and his primary care provider discontinued levofloxacin and started him on Bactrim; side effects resolved with antibiotic change. He completed his course of Bactrim. No further antibiotics are warranted for his wounds at this time. He was started on doxycycline by his PCP earlier this week (approximately 05/30/2019) for a UTI. Patient believes he had a right hip x-ray at [facility]. Records not yet received. Routine baseline labwork (CRP, CMP, CBC D, ESR, prealbumin) was significant for the following: CRP 10.1 (H), glucose 123 (H), normal serum creatinine, estimated GFR 81.4, ESR 103 (H), RBC 3.46 (L), hemoglobin 10.5 (L), hematocrit 31.2 (L). ABIs were done in office and were normal. Follow-up: Return to clinic in 1 week for re- evaluation. Return sooner or report to the emergency room should symptoms worsen, or new symptoms arise. We have discussed in great detail the clinical signs of infection or worsening overall condition and emphasized the importance of seeking emergency medical care should these occur. Note: [employer] speech recognition molding plasterer software was used to create portions of this document. Sound-alike and misspelled words, as well as other molding plasterer errors may be contained in the documentation. Multi Select Codes - Integumentary Integumentary CPT Codes: 91007 Berna musc/fascia 20 sq cm/<, 47076 Skin sub graft trnk/arm/leg
[2020-06-09 10:31] VITALS: BP 127/60; PULSE 97; RESP 18; TEMP 36.6; BMI 20.8
--- NOTE | 2020-06-09 15:07 | PN.PCM_ITS ---
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 Qualifiers: Diabetic foot ulcer location: midfoot Diabetes mellitus type: type 2 Non- pressure ulcer stage: with fat layer exposed Qualified Code(s): E11.621 - Type 2 diabetes mellitus with foot ulcer; L97.412 - Non-pressure chronic ulcer of right heel and midfoot with fat layer exposed Code(s): E11.621 - Type 2 diabetes mellitus with foot ulcer; L97.519 - Non- pressure chronic ulcer of other part of right foot with unspecified severity (2) Diabetic ulcer of right ankle Status: Chronic Code(s): E11.622 - Type 2 diabetes mellitus with other skin ulcer; L97.319 - Non-pressure chronic ulcer of right ankle with unspecified severity (3) Diabetic ulcer of right lower leg Status: Chronic Code(s): E11.622 - Type 2 diabetes mellitus with other skin ulcer; L97.919 - Non-pressure chronic ulcer of unspecified part of right lower leg with unspecified severity (4) Decubitus ulcer of right hip, stage 4 Status: Chronic Code(s): L89.214 - Pressure ulcer of right hip, stage 4 (5) Hypertension Status: Chronic Qualifiers: Hypertension type: essential hypertension Qualified Code(s): I10 - Essential (primary) hypertension Code(s): I10 - Essential (primary) hypertension (6) Diabetes mellitus type 2 in nonobese Status: Chronic Code(s): E11.9 - Type 2 diabetes mellitus without complications (7) Bipolar disorder Status: Chronic Qualifiers: Active/Remission status: remission status unspecified Qualified Code(s): F31.9 - Bipolar disorder, unspecified Code(s): F31.9 - Bipolar disorder, unspecified Type of Wound Date of Service: 06/09/20 Chief Complaint: Ulcers of right foot, right ankle, right lateral leg, and right hip History of Wound: The patient presents to the wound healing center today, 04/07/2020, for an initial evaluation of right lower extremity ulcers of the foot, ankle, lateral leg and hip. He has a past medical history significant for type 2 diabetes mellitus, hypertension, hyperlipidemia, anemia, tobacco use and alcoholism. He states he has been sober for about 4 months. He no longer takes Metformin, and states this was discontinued due to causing renal insufficiency. He states his diabetes is currently managed with diet and exercise, though he has been not unable to exercise in recent months. He states that in December he suffered a fall and laid on the ground for 5 days, during which time he developed these ulcers. He reports subsequent impaired movement and sensation of his right lower extremity from the mid lower leg to his toes. He was admitted to a half-way following hospitalization, and was receiving wound debridement approximately every 2 weeks. Santyl was used on the ulcers of his right lower leg, ankle and foot. A wound VAC was used for his right hip ulcer. He was discharged from the half-way on 04/03/2020, at which time the wound VAC was discontinued. Since 04/03/2020, the patient has been using wet to dry gauze dressings to the right hip daily. He is receiving home health care from [facility]. He reports he is able to ambulate with the use of a walker, and also uses a wheelchair at times. He denies any fever or chills. He states there was a concern for infection in his right lateral leg ulcer, and he was started on doxycycline, which he is currently taking. He reports occasional nausea, but denies vomiting or diarrhea. He also reports a decreased appetite. He denies any recent copious, purulent, or foul-smelling drainage from his ulcers. Progress of Wound: Rosendo is seen today as a courtesy visit for Mary peng CNP. The patient has been using wound VAC to his right hip ulcer, and is tolerating this well. His right hip ulcer has decreased in size this week, though tunneling remains relatively unchanged. There is no foul-smelling drainage from his right hip ulcer today. He received Epifix #3 to his right leg ulcer last week and tolerated this well. He has been using Aquacel Ag to the ulcers of his right foot and ankle. His right leg, right ankle, and right foot ulcers are improved in size this week. He denies any foul-smelling drainage from these ulcers. The erythema and swelling of his bilateral lower extremities is significantly improved. The patient denies any fever or chills. He completed a course of doxycycline on 04/11/2020. Patient's right hip culture from 04/07/2020 was positive for 1+ MRSA (susceptible to Bactrim), and he was started on Bactrim by his PCP on 04/11/20. Patient's right lower leg culture from 04/14/2020 was positive for rare MRSA (susceptible to Bactrim). Bactrim was continued. He then developed right lower extremity erythema, warmth, and swelling which spread to the left lower extremity as well. Bactrim was discontinued and he was started on Clindamycin 450mg PO TID x 10 days. (Cultures showed susceptibility to clindamycin, and negative for inducible clindamycin resistance.). With initiation of clindamycin, the patient and his caregiver reported significant improvement in the erythema and edema of his bilateral lower extremities. His most recent wound culture revealed 3+ stenotrophomonas maltophilia susceptible to levofloxacin and Bactrim and 1+ corynebacterium striatum. Anaerobic studies were negative. Levofloxacin was not tolerated (caused weakness and confusion, per patient's PCP) and his PCP changed his antibiotic to Bactrim and his symptoms resolved. He has completed his course of Bactrim. He was diagnosed with a UTI in the past week and was started on doxycycline by his PCP. - Physical Exam Vital Signs Temp Pulse Resp BP 98 F 97 18 127/60 H 06/09/20 10:31 06/09/20 10:31 06/09/20 10:31 06/09/20 10:31 General: Alert, Oriented x3, Cooperative, No apparent distress HEENT: Atraumatic, Normocephalic Oral: Moist Mucosa Neck: Supple Cardiovascular: Regular rate, Regular Rhythm Extremities: No edema Skin: Ulcer/ Wound Wound Measurements and Assessment WC - Nurse 1 - General Ulcer Measurement Start: 05/19/20 11:43 Freq: Status: Active Protocol: Activity Type Activity Date Activity User E-Sign Co-Sign Detail Recorded Client Recorded Date Recorded By Document 06/09/20 10:31 RB [id number] 06/09/20 10:39 RB 06/09/20 10:31 Wound Center Nurse 1 [Ulcer Assessment] #4 Right Lat Foot -Combined with other wound No -Current Size (cm) - Length 3 -Current Size (cm) - Width 0.9 -Current Size (cm) - Depth 0.1 -Total Square Cm 2.7 -Tunneling No -Undermining/Tunneling No -Circular Undermining No -Exudate Amt Small -Exudate Type Serosanguineous -Wound Margin Flat & Intact -Granulation Amt Medium (34-66%) -Granulation Quality [place] -Slough/Fibrin Yes -Necrosis Amt Small (1-33%) -Necrotic Tissue Type Adherent Slough -Structure Exposed N/A -Texture (Cammie-wound Skin Appearance) Assessed, Scarring -Moisture (Cammie-wound Skin Appearance Assessed ) -Color (Cammie-wound Skin Appearance) Assessed -Temperature (Cammie-wound Skin No Abnormality Appearance) (Pt Warm) -Foul Odor after Cleansing Yes, Due to Product Use -Anesthetic Used 4% Lidocaine Solution #3 R Lat LE -Combined with other wound No -Current Size (cm) - Length 0.3 -Current Size (cm) - Width 0.4 -Current Size (cm) - Depth 0.2 -Total Square Cm 0.12 -Tunneling No -Undermining/Tunneling No -Circular Undermining No -Exudate Amt Medium -Exudate Type Serosanguineous -Wound Margin Thickened -Granulation Amt Medium (34-66%) -Granulation Quality [place] -Slough/Fibrin Yes -Necrosis Amt Small (1-33%) -Necrotic Tissue Type Adherent Slough -Structure Exposed N/A -Texture (Cammie-wound Skin Appearance) Assessed, Scarring -Moisture (Cammie-wound Skin Appearance Assessed ) -Color (Cammie-wound Skin Appearance) Assessed -Temperature (Cammie-wound Skin No Abnormality Appearance) (Pt Warm) -Tenderness on Palpation (Cammie-wound No Skin Appearance) -Ulcer Cleansing Wound Cleanser -Foul Odor after Cleansing No -Anesthetic Used 4% Lidocaine Solution #2 R Hip -Combined with other wound No -Current Size (cm) - Length 0.8 -Current Size (cm) - Width 1.2 -Current Size (cm) - Depth 2.6 -Total Square Cm 0.96 -Tunneling No -Undermining/Tunneling No -Circular Undermining No -Exudate Amt Medium -Exudate Type Serosanguineous -Wound Margin Thickened -Granulation Amt Medium (34-66%) -Granulation Quality [place] -Slough/Fibrin Yes -Necrosis Amt Small (1-33%) -Necrotic Tissue Type Adherent Slough -Structure Exposed N/A -Texture (Cammie-wound Skin Appearance) Assessed, Scarring -Moisture (Cammie-wound Skin Appearance Assessed ) -Color (Cammie-wound Skin Appearance) Assessed -Temperature (Cammie-wound Skin No Abnormality Appearance) (Pt Warm) -Tenderness on Palpation (Cammie-wound No Skin Appearance) -Ulcer Cleansing Wound Cleanser -Foul Odor after Cleansing No -Anesthetic Used 4% Lidocaine Solution #1 R ankle -Combined with other wound No -Current Size (cm) - Length 1 -Current Size (cm) - Width 0.7 -Current Size (cm) - Depth 0.1 -Total Square Cm 0.7 -Tunneling No -Undermining/Tunneling No -Circular Undermining No -Exudate Amt Medium -Exudate Type Serosanguineous -Wound Margin Thickened -Granulation Amt Medium (34-66%) -Granulation Quality [place] -Slough/Fibrin Yes -Necrosis Amt Small (1-33%) -Necrotic Tissue Type Adherent Slough -Structure Exposed N/A -Texture (Cammie-wound Skin Appearance) Assessed, Scarring -Moisture (Cammie-wound Skin Appearance Assessed ) -Color (Cammie-wound Skin Appearance) Assessed -Temperature (Cammie-wound Skin No Abnormality Appearance) (Pt Warm) -Tenderness on Palpation (Cammie-wound No Skin Appearance) -Ulcer Cleansing Wound Cleanser -Foul Odor after Cleansing No -Anesthetic Used 4% Lidocaine Solution WC - Nurse 2 - General Ulcer CM Notes Start: 05/19/20 11:43 Freq: Status: Active Protocol: Activity Type Activity Date Activity User E-Sign Co-Sign Detail Recorded Client Recorded Date Recorded By Document 06/09/20 10:47 MW [id number] 06/09/20 11:13 MW 06/09/20 10:47 Wound Center Nurse 2 [Procedure/Treatment] #4 Right Lat Foot -Time 10:51 -Correct Patient Yes -Correct Side, Site, Position Yes -Correct Procedure Yes -Procedure Performed Yes -Type of Procedure Debridement -Clinical Debridement Subcutaneous -Tissue Removed Subcutaneous -Post Debridement (cm) - Length 0.1 -Post Debridement (cm) - Width 0.1 -Post Debridement (cm) - Depth 0.1 -Total Square (Post) (cm) 0.01 -Area of Debridement (cm) - Length 0.1 -Area of Debridement (cm) - Width 0.1 -Total Square (Area) (cm) 0.01 -Tunneling No -Undermining/Tunneling No -Circular Undermining No -Wound/Ulcer Outcome Not Healed -Ulcer Cleansing Rinsed/ Irrigated with Saline -Foul Odor after Cleansing No -Bioengineered Tissue No -Bleeding Controlled with Pressure -Offloading No -Treatment Response Procedure Tolerated Well -Debridement - Subq, 1st 20sq cm No #3 R Lat LE -Time 10:51 -Correct Patient Yes -Correct Side, Site, Position Yes -Correct Procedure Yes -Procedure Performed Yes -Type of Procedure Debridement -Clinical Debridement Subcutaneous -Tissue Removed Subcutaneous -Post Debridement (cm) - Length 3.8 -Post Debridement (cm) - Width 1.0 -Post Debridement (cm) - Depth 0.1 -Total Square (Post) (cm) 3.80 -Area of Debridement (cm) - Length 3.8 -Area of Debridement (cm) - Width 1.0 -Total Square (Area) (cm) 3.80 -Tunneling No -Undermining/Tunneling No -Circular Undermining No -Wound/Ulcer Outcome Not Healed -Ulcer Cleansing Rinsed/ Irrigated with Saline -Foul Odor after Cleansing No -Bioengineered Tissue Yes -Type of Bioengineered Tissue Epifix Mesh -Expiration Date 03/20/25 -Product Lot Number [id number] -Percent Used 100 -Lot number of Saline Used [id number] -Bleeding Controlled with Pressure -Offloading No -Treatment Response Procedure Tolerated Well -Debridement - Subq, 1st 20sq cm No -Apply Skin Sub - 1st 25 sq cm - Legs 1 -Epifix Mesh (per sq cm) 11 #2 R Hip -Time 10:52 -Correct Patient Yes -Correct Side, Site, Position Yes -Correct Procedure Yes -Procedure Performed Yes -Type of Procedure Debridement -Clinical Debridement Subcutaneous -Tissue Removed Subcutaneous -Post Debridement (cm) - Length 1.0 -Post Debridement (cm) - Width 1.1 -Post Debridement (cm) - Depth 2.6 -Total Square (Post) (cm) 1.10 -Area of Debridement (cm) - Length 1.0 -Area of Debridement (cm) - Width 1.1 -Total Square (Area) (cm) 1.10 -Tunneling No -Tunneling Position (O'clock) 2 -Tunneling Distance (cm) 4.1 -Undermining/Tunneling No -Circular Undermining No -Wound/Ulcer Outcome Not Healed -Ulcer Cleansing Rinsed/ Irrigated with Saline -Foul Odor after Cleansing No -Bioengineered Tissue No -Bleeding Controlled with Pressure -Offloading No -Debridement - Subq, 1st 20sq cm Yes #1 R ankle -Time 10:53 -Correct Patient Yes -Correct Side, Site, Position Yes -Correct Procedure Yes -Procedure Performed No -Type of Procedure Debridement -Clinical Debridement Subcutaneous -Tissue Removed Subcutaneous -Post Debridement (cm) - Length 1.1 -Post Debridement (cm) - Width 0.7 -Post Debridement (cm) - Depth 0.3 -Total Square (Post) (cm) 0.77 -Area of Debridement (cm) - Length 1.1 -Area of Debridement (cm) - Width 0.7 -Total Square (Area) (cm) 0.77 -Tunneling No -Undermining/Tunneling No -Circular Undermining No -Wound/Ulcer Outcome Not Healed -Ulcer Cleansing Rinsed/ Irrigated with Saline -Foul Odor after Cleansing No -Bioengineered Tissue No -Bleeding Controlled with Pressure -Offloading No -Debridement - Subq, 1st 20sq cm No [See Physician Procedure note for Specifics] Pain Scale: 0-10 Numeric [Pain] -Is Patient Pain Free? Yes - Nurse 3 - General Ulcer D/C NN Start: 05/19/20 11:43 Freq: Status: Active Protocol: Activity Type Activity Date Activity User E-Sign Co-Sign Detail Recorded Client Recorded Date Recorded By Document 06/09/20 12:44 PL [id number] 06/09/20 12:46 PL 06/09/20 12:44 Wound Care Nurse 3 [Wound Dressing] #4 Right Lat Foot -Other Dressing ABD #3 R Lat LE -Other Dressing abd #2 R Hip -Negative Pressure Wound Therapy Continue -Setting (mmHg) 125 -Negative Pressure is Continuous -NPWT Application Charge ($) NPWT </= 50 sq cm #1 R ankle -Other Dressing ABD Pain Scale: 0-10 Numeric [Pain] -Is Patient Pain Free? Yes Psych/Mental Status: Normal Affect, Appropriate Debridement Note Post-Debridement Measurements/Treatment WC - Nurse 2 - General Ulcer CM Notes Start: 05/19/20 11:43 Freq: Status: Active Protocol: Activity Type Activity Date Activity User E-Sign Co-Sign Detail Recorded Client Recorded Date Recorded By Document 05/19/20 15:39 PL [id number] 05/19/20 16:00 PL Document 05/26/20 13:34 PL [id number] 05/26/20 13:40 PL Document 06/02/20 13:17 PL [id number] 06/02/20 13:23 PL Document 06/09/20 10:47 MW [id number] 06/09/20 11:13 MW 05/19/20 05/26/20 06/02/20 15:39 13:34 13:17 Wound Center Nurse 2 #4 Right Lat Foot -Time 11:43 10:56 10:58 -Correct Patient Yes Yes Yes -Correct Side, Site, Position Yes Yes Yes -Correct Procedure Yes Yes Yes -Procedure Performed Yes Yes Yes -Type of Procedure Debridement Debridement Debridement -Clinical Debridement Subcutaneous Subcutaneous Subcutaneous -Tissue Removed Subcutaneous Subcutaneous Subcutaneous -Post Debridement (cm) - Length 0.6 0.4 0.3 -Post Debridement (cm) - Width 0.7 0.5 0.4 -Post Debridement (cm) - Depth 0.2 0.1 0.1 -Total Square (Post) (cm) 0.42 0.20 0.12 -Area of Debridement (cm) - Length 0.6 0.4 0.3 -Area of Debridement (cm) - Width 0.7 0.5 0.4 -Total Square (Area) (cm) 0.42 0.20 0.12 -Tunneling No No No -Undermining/Tunneling No No No -Circular Undermining No No No -Wound/Ulcer Outcome Not Healed Not Healed Not Healed -Ulcer Cleansing Rinsed/ Rinsed/ Rinsed/ Irrigated with Irrigated with Irrigated with Saline Saline Saline -Foul Odor after Cleansing No No No -Bioengineered Tissue No No No -Bleeding Controlled with Pressure -Offloading -Treatment Response Procedure Tolerated Well -Debridement - Subq, 1st 20sq cm Yes No No #3 R Lat LE -Time 11:43 10:56 10:58 -Correct Patient Yes Yes Yes -Correct Side, Site, Position Yes Yes Yes -Correct Procedure Yes Yes Yes -Procedure Performed Yes Yes Yes -Type of Procedure Debridement Debridement Debridement -Clinical Debridement Subcutaneous Subcutaneous Subcutaneous -Tissue Removed Subcutaneous Subcutaneous Subcutaneous -Post Debridement (cm) - Length 5.6 5.4 4.2 -Post Debridement (cm) - Width 2.3 2.0 1.2 -Post Debridement (cm) - Depth 0.1 0.1 0.1 -Total Square (Post) (cm) 12.88 10.80 5.04 -Area of Debridement (cm) - Length 5.6 5.4 4.2 -Area of Debridement (cm) - Width 2.3 2.0 1.2 -Total Square (Area) (cm) 12.88 10.80 5.04 -Tunneling No No No -Undermining/Tunneling No No No -Circular Undermining No No No -Wound/Ulcer Outcome Not Healed Not Healed Not Healed -Ulcer Cleansing Rinsed/ Rinsed/ Rinsed/ Irrigated with Irrigated with Irrigated with Saline Saline Saline -Foul Odor after Cleansing No No No -Bioengineered Tissue Yes Yes Yes -Type of Bioengineered Tissue Epifix Mesh Epifix Mesh Epifix Mesh -Expiration Date 01/17/25 01/17/25 03/20/23 -Product Lot Number [id number] -Percent Used 100 100 100 -Lot number of Saline Used [id number] -Bleeding Controlled with Pressure Pressure Pressure -Offloading -Treatment Response Procedure Procedure Procedure Tolerated Well Tolerated Well Tolerated Well -Debridement - Subq, 1st 20sq cm No No No -Apply Skin Sub - 1st 25 sq cm - Legs 1 1 1 -Epifix Mesh (per sq cm) 11 11 11 #2 R Hip -Time 11:43 10:56 10:58 -Correct Patient Yes Yes Yes -Correct Side, Site, Position Yes Yes Yes -Correct Procedure Yes Yes Yes -Procedure Performed Yes Yes Yes -Type of Procedure Debridement Debridement Debridement -Clinical Debridement Muscle / Fascia Muscle / Fascia Muscle / Fascia -Tissue Removed Epidermis, Epidermis, Subcutaneous, Dermis, Dermis, Muscle Subcutaneous, Subcutaneous, Muscle Muscle -Post Debridement (cm) - Length 1.4 1.4 1.2 -Post Debridement (cm) - Width 2.5 2.0 1.7 -Post Debridement (cm) - Depth 2.5 2.2 2.2 -Total Square (Post) (cm) 3.50 2.80 2.04 -Area of Debridement (cm) - Length 1.4 1.4 1.2 -Area of Debridement (cm) - Width 2.5 2.0 1.7 -Total Square (Area) (cm) 3.50 2.80 2.04 -Tunneling No No -Tunneling Position (O'clock) 1 -Tunneling Distance (cm) 4.5 -Undermining/Tunneling No No Yes -Undermining/Tunneling Starts (O'clock 1 ) -Undermining/Tunneling Ends (O'clock) 3 -Maximum Distance (cm) 3.4 -Circular Undermining No No -Wound/Ulcer Outcome Not Healed Not Healed Not Healed -Ulcer Cleansing Rinsed/ Rinsed/ Rinsed/ Irrigated with Irrigated with Irrigated with Saline Saline Saline -Foul Odor after Cleansing No No No -Bioengineered Tissue No No No -Bleeding Controlled with Pressure -Offloading -Treatment Response Procedure Tolerated Well -Debridement - Subq, 1st 20sq cm -Debridement - Muscle / Fascia, 1st Yes Yes Yes 20sq cm #1 R ankle -Time 11:43 10:56 10:58 -Correct Patient Yes Yes Yes -Correct Side, Site, Position Yes Yes Yes -Correct Procedure Yes Yes Yes -Procedure Performed Yes Yes Yes -Type of Procedure Debridement Debridement Debridement -Clinical Debridement Subcutaneous Subcutaneous Subcutaneous -Tissue Removed Subcutaneous Subcutaneous Subcutaneous -Post Debridement (cm) - Length 1.1 1.3 1.1 -Post Debridement (cm) - Width 0.8 1.2 1.0 -Post Debridement (cm) - Depth 0.3 0.3 0.2 -Total Square (Post) (cm) 0.88 1.56 1.10 -Area of Debridement (cm) - Length 1.1 1.3 1.1 -Area of Debridement (cm) - Width 0.8 1.2 1.0 -Total Square (Area) (cm) 0.88 1.56 1.10 -Tunneling No No No -Undermining/Tunneling No No No -Circular Undermining No No No -Wound/Ulcer Outcome Not Healed Not Healed Not Healed -Ulcer Cleansing Rinsed/ Rinsed/ Rinsed/ Irrigated with Irrigated with Irrigated with Saline Saline Saline -Foul Odor after Cleansing No No No -Bioengineered Tissue No No No -Bleeding Controlled with -Offloading -Debridement - Subq, 1st 20sq cm No No No Pain Scale: 0-10 Numeric Is Patient Pain Free? Yes Yes Yes 06/09/20 10:47 Wound Center Nurse 2 #4 Right Lat Foot -Time 10:51 -Correct Patient Yes -Correct Side, Site, Position Yes -Correct Procedure Yes -Procedure Performed Yes -Type of Procedure Debridement -Clinical Debridement Subcutaneous -Tissue Removed Subcutaneous -Post Debridement (cm) - Length 0.1 -Post Debridement (cm) - Width 0.1 -Post Debridement (cm) - Depth 0.1 -Total Square (Post) (cm) 0.01 -Area of Debridement (cm) - Length 0.1 -Area of Debridement (cm) - Width 0.1 -Total Square (Area) (cm) 0.01 -Tunneling No -Undermining/Tunneling No -Circular Undermining No -Wound/Ulcer Outcome Not Healed -Ulcer Cleansing Rinsed/ Irrigated with Saline -Foul Odor after Cleansing No -Bioengineered Tissue No -Bleeding Controlled with Pressure -Offloading No -Treatment Response Procedure Tolerated Well -Debridement - Subq, 1st 20sq cm No #3 R Lat LE -Time 10:51 -Correct Patient Yes -Correct Side, Site, Position Yes -Correct Procedure Yes -Procedure Performed Yes -Type of Procedure Debridement -Clinical Debridement Subcutaneous -Tissue Removed Subcutaneous -Post Debridement (cm) - Length 3.8 -Post Debridement (cm) - Width 1.0 -Post Debridement (cm) - Depth 0.1 -Total Square (Post) (cm) 3.80 -Area of Debridement (cm) - Length 3.8 -Area of Debridement (cm) - Width 1.0 -Total Square (Area) (cm) 3.80 -Tunneling No -Undermining/Tunneling No -Circular Undermining No -Wound/Ulcer Outcome Not Healed -Ulcer Cleansing Rinsed/ Irrigated with Saline -Foul Odor after Cleansing No -Bioengineered Tissue Yes -Type of Bioengineered Tissue Epifix Mesh -Expiration Date 03/20/25 -Product Lot Number [id number] -Percent Used 100 -Lot number of Saline Used [id number] -Bleeding Controlled with Pressure -Offloading No -Treatment Response Procedure Tolerated Well -Debridement - Subq, 1st 20sq cm No -Apply Skin Sub - 1st 25 sq cm - Legs 1 -Epifix Mesh (per sq cm) 11 #2 R Hip -Time 10:52 -Correct Patient Yes -Correct Side, Site, Position Yes -Correct Procedure Yes -Procedure Performed Yes -Type of Procedure Debridement -Clinical Debridement Subcutaneous -Tissue Removed Subcutaneous -Post Debridement (cm) - Length 1.0 -Post Debridement (cm) - Width 1.1 -Post Debridement (cm) - Depth 2.6 -Total Square (Post) (cm) 1.10 -Area of Debridement (cm) - Length 1.0 -Area of Debridement (cm) - Width 1.1 -Total Square (Area) (cm) 1.10 -Tunneling No -Tunneling Position (O'clock) 2 -Tunneling Distance (cm) 4.1 -Undermining/Tunneling No -Undermining/Tunneling Starts (O'clock ) -Undermining/Tunneling Ends (O'clock) -Maximum Distance (cm) -Circular Undermining No -Wound/Ulcer Outcome Not Healed -Ulcer Cleansing Rinsed/ Irrigated with Saline -Foul Odor after Cleansing No -Bioengineered Tissue No -Bleeding Controlled with Pressure -Offloading No -Treatment Response -Debridement - Subq, 1st 20sq cm Yes -Debridement - Muscle / Fascia, 1st 20sq cm #1 R ankle -Time 10:53 -Correct Patient Yes -Correct Side, Site, Position Yes -Correct Procedure Yes -Procedure Performed No -Type of Procedure Debridement -Clinical Debridement Subcutaneous -Tissue Removed Subcutaneous -Post Debridement (cm) - Length 1.1 -Post Debridement (cm) - Width 0.7 -Post Debridement (cm) - Depth 0.3 -Total Square (Post) (cm) 0.77 -Area of Debridement (cm) - Length 1.1 -Area of Debridement (cm) - Width 0.7 -Total Square (Area) (cm) 0.77 -Tunneling No -Undermining/Tunneling No -Circular Undermining No -Wound/Ulcer Outcome Not Healed -Ulcer Cleansing Rinsed/ Irrigated with Saline -Foul Odor after Cleansing No -Bioengineered Tissue No -Bleeding Controlled with Pressure -Offloading No -Debridement - Subq, 1st 20sq cm No Pain Scale: 0-10 Numeric Is Patient Pain Free? Yes WC - Nurse 3 - General Ulcer D/C NN Start: 05/19/20 11:43 Freq: Status: Active Protocol: Activity Type Activity Date Activity User E-Sign Co-Sign Detail Recorded Client Recorded Date Recorded By Document 05/19/20 15:39 PL [id number] 05/19/20 16:00 PL Document 05/26/20 12:05 KR [id number] 05/26/20 12:06 KR Document 06/02/20 11:49 BMF [id number] 06/02/20 11:52 BMF Document 06/09/20 12:44 PL [id number] 06/09/20 12:46 PL 05/19/20 05/26/20 06/02/20 15:39 12:05 11:49 Pain Scale: 0-10 Numeric Is Patient Pain Free? 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 #2 R Hip -Ulcer Cleansing Rinsed/ Irrigated with Saline -Foul Odor after Cleansing No -Negative Pressure Wound Therapy Continue Continue -Setting (mmHg) 150 125 -Negative Pressure is Continuous Continuous -Other Dressing epifix -NPWT Application Charge ($) NPWT </= 50 sq NPWT </= 50 sq cm cm #1 R ankle -Ulcer Cleansing Rinsed/ Rinsed/ Irrigated with Irrigated with Saline Saline -Foul Odor after Cleansing No No -Other Dressing epifix -Primary Dressing Covered/Secured with Dry Gauze, Dry Gauze Secured with Tape -Other Covering unna per kr restaurant hourly manager BLE -Multi-Layered Wrap Application Unna Boot - Bilateral ($) -Unna Boots (Bilat) ($) 1 -Other PER KR MOTION STUDY ANALYST Right -Multi-Layered Wrap Application Unna Boot - Unna Boot - Right ($) Bilateral ($) -Unna Boots (Bilat) ($) 2 Left -Multi-Layered Wrap Application Multi-Layer Comp - Left ($) Treatment Response Procedure Tolerated Well WC - Visit Discharge Discharge Condition Stable Stable Stable Ambulatory Status Wheelchair Wheelchair Wheelchair Transportation Private Auto Private Auto Private Auto Accompanied by devan BRAGG Clinical Summary of Care Provided Yes Facility Type Home Health 06/09/20 12:44 Pain Scale: 0-10 Numeric Is Patient Pain Free? Yes Wound Care Nurse 3 #4 Right Lat Foot -Other Dressing ABD -Primary Dressing Covered/Secured with -Other Covering #3 R Lat LE -Other Dressing abd -Primary Dressing Covered/Secured with -Other Covering #2 R Hip -Ulcer Cleansing -Foul Odor after Cleansing -Negative Pressure Wound Therapy Continue -Setting (mmHg) 125 -Negative Pressure is Continuous -Other Dressing -NPWT Application Charge ($) NPWT </= 50 sq cm #1 R ankle -Ulcer Cleansing -Foul Odor after Cleansing -Other Dressing ABD -Primary Dressing Covered/Secured with -Other Covering BLE -Multi-Layered Wrap Application -Unna Boots (Bilat) ($) -Other Right -Multi-Layered Wrap Application -Unna Boots (Bilat) ($) Left -Multi-Layered Wrap Application Treatment Response WC - Visit Discharge Discharge Condition Ambulatory Status Transportation Accompanied by Clinical Summary of Care Provided Facility Type Wound debrided: right lateral foot Laterality: Right Wound Grade/Stage: Mendez grade 2 Type of Debridement: Excisional debridement Anesthesia Used: 4% Lidocaine Solution Depth: Down to and including healthy tissue, in the subcutaneous layer Percentage of wound debrided: 100 Instrument Used: 3mm curette Tissue Removed: yellow slough, devitalized tissue Severity: Fat Layer Exposed Amount of bleeding with debridement: Mild Bleeding Controlled with: Compression and gauze Patient tolerated procedure well - Additional Wound Wound debrided: right lateral LE Laterality: Right Wound Grade/Stage: Mendez grade 2 Type of Debridement: Excisional debridement Anesthesia Used: 4% Lidocaine Solution, 5% Lidocaine Gel Depth: Down to and including healthy tissue, in the subcutaneous layer Percentage of wound debrided: 100 Instrument Used: 3mm curette Tissue Removed: yellow slough, devitalized tissue Severity: Fat Layer Exposed Amount of bleeding with debridement: Mild Bleeding Controlled with: Compression and gauze Patient tolerated procedure: Patient tolerated procedure well - Additional Wound Wound debrided: right hip Laterality: Right Wound Grade/Stage: Stage 4 Type of Debridement: Excisional debridement Anesthesia Used: 4% Lidocaine Solution Depth: Down to and including healthy tissue, in the subcutaneous layer Percentage of wound debrided: 100 Instrument Used: 3mm curette Tissue Removed: yellow slough, devitalized tissue Severity: Fat Layer Exposed Amount of bleeding with debridement: Mild Bleeding Controlled with: Compression and gauze Patient tolerated procedure: Patient tolerated procedure well - Additional Wound Wound debrided: right ankle Laterality: Right Wound Grade/Stage: Mendez grade 2 Type of Debridement: Excisional debridement Anesthesia Used: 4% Lidocaine Solution, 5% Lidocaine Gel Depth: Down to and including healthy tissue, in the subcutaneous layer Percentage of wound debrided: 100 Instrument Used: 3mm curette Tissue Removed: yellow slough, devitalized tissue Severity: Fat Layer Exposed Amount of bleeding with debridement: Mild Bleeding Controlled with: Compression and gauze Patient tolerated procedure: Patient tolerated procedure well Assessment/Plan Active Problems 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 Wound VAC applied to the right hip at 125 mmHg negative pressure, with special instructions to pack 2:00 tunnel with foam. Aquacel Ag dressing applied to the right ankle, and right foot. Given the duration of the wound and failure of the wound to respond to standard wound care, we applied for advanced skin substitutes and were approved for epifix. Epifix #4 applied to the right lateral leg ulcer, 100% of the product was used. Epifix was covered with Adaptic touch and secured with Steri-Strips. 3M wrap placed to right LE and will be left in place for 1 week, until next appointment. At home wound-care instructions: The patient is to keep Unna boots clean and dry. If he notices numbness/tingling of the toes or discoloration of the toes, he is to contact the wound healing center or report to the emergency department. The patient's right hip wound VAC is to be changed 3 times weekly. Off-loading: Avoid pressure at ulcer sites. Avoid prolonged standing or dangling of the legs. When seated, keep feet elevated at chest level. If Unna boots begin to feel tight, elevate the feet. A Roho cushion was ordered for the patient to use when utilizing his wheelchair. He was instructed on appropriate offloading when seated/lying down. Frequent position changes were encouraged. Diet: Patient encouraged to increase protein and vitamin C intake while taking caution to avoid high carbohydrate and/or sugar intake. Labs/cultures/imaging: He completed a course of doxycycline on 04/11/2020. Patient's right hip culture from 04/07/2020 was positive for 1+ MRSA (susceptible to Bactrim), and he was started on Bactrim by his PCP on 04/11/20. Patient's right lower leg culture from 04/14/2020 was positive for rare MRSA (susceptible to Bactrim). Bactrim was continued. He later developed right lower extremity erythema, warmth, and swelling which spread to the left lower extremity as well. Bactrim was discontinued and he was started on Clindamycin 450mg PO TID x 10 days. (Cultures showed susceptibility to clindamycin, and negative for inducible clindamycin resistance.) With initiation of clindamycin, the patient and his caregiver reported significant improvement in the erythema and edema of his bilateral lower extremities. Clindamycin was continued for another 7 days. Due to clinical signs of infection, new cultures were collected from the right hip on 04/28/2020, which were positive for 3+ Stenotrophomonas maltophilia and 1+ corynebacterium striatum. Susceptibility studies showed susceptibility of Stenotrophomonas maltophilia to levofloxacin and Bactrim. Anaerobic studies were negative. The patient was started on levofloxacin 750 mg once daily for 7 days. Per his primary care provider, this was not well-tolerated (caused weakness and confusion) and his primary care provider discontinued levofloxacin and started him on Bactrim; side effects resolved with antibiotic change. He completed his course of Bactrim. No further antibiotics are warranted for his wounds at this time. He was started on doxycycline by his PCP earlier this week (approximately 05/30/2019) for a UTI. Patient believes he had a right hip x-ray at [facility]. Records not yet received. Routine baseline labwork (CRP, CMP, CBC D, ESR, prealbumin) was significant for the following: CRP 10.1 (H), glucose 123 (H), normal serum creatinine, estimated GFR 81.4, ESR 103 (H), RBC 3.46 (L), hemoglobin 10.5 (L), hematocrit 31.2 (L). ABIs were done in office and were normal. Follow-up: Return to clinic in 1 week for re- evaluation. Return sooner or report to the emergency room should symptoms worsen, or new symptoms arise. We have discussed in great detail the clinical signs of infection or worsening overall condition and emphasized the importance of seeking emergency medical care should these occur. Note: [employer] speech recognition site controller software was used to create portions of this document. Sound-alike and misspelled words, as well as other site controller errors may be contained in the documentation.
[2020-06-16 10:55] VITALS: BP 112/43; PULSE 84; RESP 16; TEMP 35.8; BMI 20.8
--- NOTE | 2020-06-16 14:13 | PCM.WC.PN ---
History of Present Illness Date of Service: 06/16/20 Chief Complaint: Ulcers of right foot, right ankle, right lateral leg, and right hip History of Wound: The patient presents to the wound healing center today, 04/07/2020, for an initial evaluation of right lower extremity ulcers of the foot, ankle, lateral leg and hip. He has a past medical history significant for type 2 diabetes mellitus, hypertension, hyperlipidemia, anemia, tobacco use and alcoholism. He states he has been sober for about 4 months. He no longer takes Metformin, and states this was discontinued due to causing renal insufficiency. He states his diabetes is currently managed with diet and exercise, though he has been not unable to exercise in recent months. He states that in December he suffered a fall and laid on the ground for 5 days, during which time he developed these ulcers. He reports subsequent impaired movement and sensation of his right lower extremity from the mid lower leg to his toes. He was admitted to a fdc following hospitalization, and was receiving wound debridement approximately every 2 weeks. Santyl was used on the ulcers of his right lower leg, ankle and foot. A wound VAC was used for his right hip ulcer. He was discharged from the fdc on 04/03/2020, at which time the wound VAC was discontinued. Since 04/03/2020, the patient has been using wet to dry gauze dressings to the right hip daily. He is receiving home health care from [facility]. He reports he is able to ambulate with the use of a walker, and also uses a wheelchair at times. He denies any fever or chills. He states there was a concern for infection in his right lateral leg ulcer, and he was started on doxycycline, which he is currently taking. He reports occasional nausea, but denies vomiting or diarrhea. He also reports a decreased appetite. He denies any recent copious, purulent, or foul-smelling drainage from his ulcers. Progress of Wound: Rosendo returns today for a follow-up visit. He has been using a wound VAC to his right hip ulcer and is tolerating this well. There is some concern regarding the wound opening closing more quickly than his tunnel is filling in. The tunnel has become more shallow in the past week. He reports an increase in pain in his right hip ulcer, as well as an increase in drainage. A culture will be collected today. His right leg ulcer is significantly improved in size and appearance since last week with the use of epifix. His right ankle ulcer is increased in size this week. No signs of infection present. His right foot ulcer is healed today. The patient denies fever, chills, nausea, vomiting, or diarrhea. 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 Code(s): E11.622 - Type 2 diabetes mellitus with other skin ulcer; L97.319 - Non-pressure chronic ulcer of right ankle with unspecified severity (2) Diabetic ulcer of right lower leg: Status: Chronic Code(s): E11.622 - Type 2 diabetes mellitus with other skin ulcer; L97.919 - Non-pressure chronic ulcer of unspecified part of right lower leg with unspecified severity (3) Decubitus ulcer of right hip, stage 4: Status: Chronic Code(s): L89.214 - Pressure ulcer of right hip, stage 4 (4) Diabetes mellitus type 2 in nonobese: Status: Chronic Code(s): E11.9 - Type 2 diabetes mellitus without complications (5) Hypertension: Status: Chronic Code(s): I10 - Essential (primary) hypertension Qualifiers: Hypertension type: essential hypertension Qualified Code(s): I10 - Essential (primary) hypertension (6) Hyperlipidemia: Status: Chronic Code(s): E78.5 - Hyperlipidemia, unspecified Qualifiers: Hyperlipidemia type: unspecified Qualified Code(s): E78.5 - Hyperlipidemia, unspecified (7) Alcoholism: Status: Chronic Code(s): F10.20 - Alcohol dependence, uncomplicated (8) Bipolar disorder: Status: Chronic Code(s): F31.9 - Bipolar disorder, unspecified Qualifiers: Active/Remission status: remission status unspecified Qualified Code(s): F31.9 - Bipolar disorder, unspecified Plan: Debridement performed today in clinic. Wound VAC applied to the right hip at 125 mmHg negative pressure, with special instructions to pack 2:00 tunnel with foam. Aquacel Ag dressing applied to the right ankle. Given the duration of the wound and failure of the wound to respond to standard wound care, we applied for advanced skin substitutes and were approved for Epifix. Epifix #4 applied to the right lateral leg ulcer, 100% of the product was used. Epifix was covered with a wound veil and secured with Steri-Strips. Unna boot applied to right lower extremity. (3M wrap was previously not well tolerated.) At home wound-care instructions: The patient is to keep Unna boots clean and dry. If he notices numbness/tingling of the toes or discoloration of the toes, he is to contact the wound healing center or report to the emergency department. The patient's right hip wound VAC is to be changed 3 times weekly. Off-loading: Avoid pressure at ulcer sites. Avoid prolonged standing or dangling of the legs. When seated, keep feet elevated at chest level. If Unna boots begin to feel tight, elevate the feet. A Roho cushion was ordered for the patient to use when utilizing his wheelchair. He was instructed on appropriate offloading when seated/lying down. Frequent position changes were encouraged. Diet: Patient encouraged to increase protein and vitamin C intake while taking caution to avoid high carbohydrate and/or sugar intake. Labs/cultures/imaging: He completed a course of doxycycline on 04/11/2020. Patient's right hip culture from 04/07/2020 was positive for 1+ MRSA (susceptible to Bactrim), and he was started on Bactrim by his PCP on 04/11/20. Patient's right lower leg culture from 04/14/2020 was positive for rare MRSA (susceptible to Bactrim). Bactrim was continued. He later developed right lower extremity erythema, warmth, and swelling which spread to the left lower extremity as well. Bactrim was discontinued and he was started on Clindamycin 450mg PO TID x 10 days. (Cultures showed susceptibility to clindamycin, and negative for inducible clindamycin resistance.) With initiation of clindamycin, the patient and his caregiver reported significant improvement in the erythema and edema of his bilateral lower extremities. Clindamycin was continued for another 7 days. Due to clinical signs of infection, new cultures were collected from the right hip on 04/28/2020, which were positive for 3+ Stenotrophomonas maltophilia and 1+ corynebacterium striatum. Susceptibility studies showed susceptibility of Stenotrophomonas maltophilia to levofloxacin and Bactrim. Anaerobic studies were negative. The patient was started on levofloxacin 750 mg once daily for 7 days. Per his primary care provider, this was not well-tolerated (caused weakness and confusion) and his primary care provider discontinued levofloxacin and started him on Bactrim; side effects resolved with antibiotic change. He completed his course of Bactrim. He was started on doxycycline by his PCP on approximately 05/30/2019 for a UTI. He has been off of antibiotics for approximately 1 week now. Cultures again collected from the right hip today due to an increase in pain and drainage from the right hip ulcer. We will await culture results to determine appropriateness of antibiotics. Patient believes he had a right hip x-ray at [facility]. Records not yet received. Routine baseline lab work (CRP, CMP, CBC D, ESR, prealbumin) was significant for the following: CRP 10.1 (H), glucose 123 (H), normal serum creatinine, estimated GFR 81.4, ESR 103 (H), RBC 3.46 (L), hemoglobin 10.5 (L), hematocrit 31.2 (L). ABIs were done in office and were normal. Follow-up: Return to clinic in 1 week for re-evaluation. Return sooner or report to the emergency room should symptoms worsen, or new symptoms arise. We have discussed in great detail the clinical signs of infection or worsening overall condition and emphasized the importance of seeking emergency medical care should these occur. Note: [employer] speech recognition center rep software was used to create portions of this document. Sound-alike and misspelled words, as well as other center rep errors may be contained in the documentation. Charges/Coding Procedures Integumentary 111xxx-113xx: 50977 Berna musc/fascia 20 sq cm/< 150xxx-152xx: 10611 Skin sub graft trnk/arm/leg Physical Exam Const alert and no apparent distress General Appearance: cooperative, comfortable, well kempt and frail HEENT Head and Scalp: normocephalic and atraumatic Neck supple Resp normal respiratory effort and normal air movement GI non-distended Extremity normal capillary refill, no joint enlargement and no calf tenderness General Extremity: edema right lower extremity mild; Negative for clubbing or cyanosis Peripheral Pulses: Yes dorsalis pedis pulses present right 2+ Skin Wounds: wounds noted No malodorous Wound Narrative: 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 Tunneling is somewhat improved in depth. Does not probe to bone. No malodorous drainage. Moderate rey-colored drainage present. Right lateral leg ulcer is significantly improved in size and appearance. Good granulation tissue present. No periulcer warmth or edema. Tender to palpation. Right ankle ulcer is slightly increased in size today. Good granulation tissue is present. No periulcer warmth or erythema present. Right foot ulcer is healed today. Neuro moves all extremities Sensorium / Orientation: awake and alert Psych mental status grossly normal, cooperative and affect normal Appearance: grossly normal Debridement Note Debridement Note Post-Debridement Measurements and Additional Note: Post-Debridement Measurements/Treatment WC - Nurse 2 - General Ulcer CM Notes Start: 05/19/20 11:43 Freq: Status: Active Protocol: Activity Type Activity Date Activity User E-Sign Co-Sign Detail Recorded Client Recorded Date Recorded By Document 05/19/20 15:39 PL [id number] 05/19/20 16:00 PL Document 05/26/20 13:34 PL [id number] 05/26/20 13:40 PL Document 06/02/20 13:17 PL [id number] 06/02/20 13:23 PL Document 06/09/20 10:47 MW [id number] 06/09/20 11:13 MW Document 06/16/20 13:48 PL [id number] 06/16/20 13:58 PL 05/19/20 05/26/20 06/02/20 15:39 13:34 13:17 Wound Center Nurse 2 #4 Right Lat Foot -Time 11:43 10:56 10:58 -Correct Patient Yes Yes Yes -Correct Side, Site, Position Yes Yes Yes -Correct Procedure Yes Yes Yes -Procedure Performed Yes Yes Yes -Type of Procedure Debridement Debridement Debridement -Clinical Debridement Subcutaneous Subcutaneous Subcutaneous -Tissue Removed Subcutaneous Subcutaneous Subcutaneous -Post Debridement (cm) - Length 0.6 0.4 0.3 -Post Debridement (cm) - Width 0.7 0.5 0.4 -Post Debridement (cm) - Depth 0.2 0.1 0.1 -Total Square (Post) (cm) 0.42 0.20 0.12 -Area of Debridement (cm) - Length 0.6 0.4 0.3 -Area of Debridement (cm) - Width 0.7 0.5 0.4 -Total Square (Area) (cm) 0.42 0.20 0.12 -Tunneling No No No -Undermining/Tunneling No No No -Circular Undermining No No No -Wound/Ulcer Outcome Not Healed Not Healed Not Healed -Ulcer Cleansing Rinsed/ Rinsed/ Rinsed/ Irrigated with Irrigated with Irrigated with Saline Saline Saline -Foul Odor after Cleansing No No No -Bioengineered Tissue No No No -Bleeding Controlled with Pressure -Offloading -Treatment Response Procedure Tolerated Well -Debridement - Subq, 1st 20sq cm Yes No No #3 R Lat LE -Time 11:43 10:56 10:58 -Correct Patient Yes Yes Yes -Correct Side, Site, Position Yes Yes Yes -Correct Procedure Yes Yes Yes -Procedure Performed Yes Yes Yes -Type of Procedure Debridement Debridement Debridement -Clinical Debridement Subcutaneous Subcutaneous Subcutaneous -Tissue Removed Subcutaneous Subcutaneous Subcutaneous -Post Debridement (cm) - Length 5.6 5.4 4.2 -Post Debridement (cm) - Width 2.3 2.0 1.2 -Post Debridement (cm) - Depth 0.1 0.1 0.1 -Total Square (Post) (cm) 12.88 10.80 5.04 -Area of Debridement (cm) - Length 5.6 5.4 4.2 -Area of Debridement (cm) - Width 2.3 2.0 1.2 -Total Square (Area) (cm) 12.88 10.80 5.04 -Tunneling No No No -Undermining/Tunneling No No No -Circular Undermining No No No -Wound/Ulcer Outcome Not Healed Not Healed Not Healed -Ulcer Cleansing Rinsed/ Rinsed/ Rinsed/ Irrigated with Irrigated with Irrigated with Saline Saline Saline -Foul Odor after Cleansing No No No -Bioengineered Tissue Yes Yes Yes -Type of Bioengineered Tissue Epifix Mesh Epifix Mesh Epifix Mesh -Expiration Date 01/17/25 01/17/25 03/20/23 -Product Lot Number [id number] -Percent Used 100 100 100 -Lot number of Saline Used [id number] -Bleeding Controlled with Pressure Pressure Pressure -Offloading -Treatment Response Procedure Procedure Procedure Tolerated Well Tolerated Well Tolerated Well -Debridement - Subq, 1st 20sq cm No No No -Apply Skin Sub - 1st 25 sq cm - Legs 1 1 1 -Epifix (per sq cm) -Epifix Mesh (per sq cm) 11 11 11 #2 R Hip -Time 11:43 10:56 10:58 -Correct Patient Yes Yes Yes -Correct Side, Site, Position Yes Yes Yes -Correct Procedure Yes Yes Yes -Procedure Performed Yes Yes Yes -Type of Procedure Debridement Debridement Debridement -Clinical Debridement Muscle / Fascia Muscle / Fascia Muscle / Fascia -Tissue Removed Epidermis, Epidermis, Subcutaneous, Dermis, Dermis, Muscle Subcutaneous, Subcutaneous, Muscle Muscle -Post Debridement (cm) - Length 1.4 1.4 1.2 -Post Debridement (cm) - Width 2.5 2.0 1.7 -Post Debridement (cm) - Depth 2.5 2.2 2.2 -Total Square (Post) (cm) 3.50 2.80 2.04 -Area of Debridement (cm) - Length 1.4 1.4 1.2 -Area of Debridement (cm) - Width 2.5 2.0 1.7 -Total Square (Area) (cm) 3.50 2.80 2.04 -Tunneling No No -Tunneling Position (O'clock) 1 -Tunneling Distance (cm) 4.5 -Undermining/Tunneling No No Yes -Undermining/Tunneling Starts (O'clock 1 ) -Undermining/Tunneling Ends (O'clock) 3 -Maximum Distance (cm) 3.4 -Circular Undermining No No -Wound/Ulcer Outcome Not Healed Not Healed Not Healed -Ulcer Cleansing Rinsed/ Rinsed/ Rinsed/ Irrigated with Irrigated with Irrigated with Saline Saline Saline -Foul Odor after Cleansing No No No -Bioengineered Tissue No No No -Bleeding Controlled with Pressure -Offloading -Treatment Response Procedure Tolerated Well -Debridement - Subq, 1st 20sq cm -Debridement - Muscle / Fascia, 1st Yes Yes Yes 20sq cm #1 R ankle -Time 11:43 10:56 10:58 -Correct Patient Yes Yes Yes -Correct Side, Site, Position Yes Yes Yes -Correct Procedure Yes Yes Yes -Procedure Performed Yes Yes Yes -Type of Procedure Debridement Debridement Debridement -Clinical Debridement Subcutaneous Subcutaneous Subcutaneous -Tissue Removed Subcutaneous Subcutaneous Subcutaneous -Post Debridement (cm) - Length 1.1 1.3 1.1 -Post Debridement (cm) - Width 0.8 1.2 1.0 -Post Debridement (cm) - Depth 0.3 0.3 0.2 -Total Square (Post) (cm) 0.88 1.56 1.10 -Area of Debridement (cm) - Length 1.1 1.3 1.1 -Area of Debridement (cm) - Width 0.8 1.2 1.0 -Total Square (Area) (cm) 0.88 1.56 1.10 -Tunneling No No No -Undermining/Tunneling No No No -Circular Undermining No No No -Wound/Ulcer Outcome Not Healed Not Healed Not Healed -Ulcer Cleansing Rinsed/ Rinsed/ Rinsed/ Irrigated with Irrigated with Irrigated with Saline Saline Saline -Foul Odor after Cleansing No No No -Bioengineered Tissue No No No -Bleeding Controlled with -Offloading -Treatment Response -Debridement - Subq, 1st 20sq cm No No No Pain Scale: 0-10 Numeric Is Patient Pain Free? Yes Yes Yes 06/09/20 06/16/20 10:47 13:48 Wound Center Nurse 2 #4 Right Lat Foot -Time 10:51 -Correct Patient Yes -Correct Side, Site, Position Yes -Correct Procedure Yes -Procedure Performed Yes No -Type of Procedure Debridement -Clinical Debridement Subcutaneous -Tissue Removed Subcutaneous -Post Debridement (cm) - Length 0.1 -Post Debridement (cm) - Width 0.1 -Post Debridement (cm) - Depth 0.1 -Total Square (Post) (cm) 0.01 -Area of Debridement (cm) - Length 0.1 -Area of Debridement (cm) - Width 0.1 -Total Square (Area) (cm) 0.01 -Tunneling No -Undermining/Tunneling No -Circular Undermining No -Wound/Ulcer Outcome Not Healed Healed- Epithelialized -Ulcer Cleansing Rinsed/ Irrigated with Saline -Foul Odor after Cleansing No -Bioengineered Tissue No -Bleeding Controlled with Pressure -Offloading No -Treatment Response Procedure Tolerated Well -Debridement - Subq, 1st 20sq cm No #3 R Lat LE -Time 10:51 11:29 -Correct Patient Yes Yes -Correct Side, Site, Position Yes Yes -Correct Procedure Yes Yes -Procedure Performed Yes Yes -Type of Procedure Debridement Debridement -Clinical Debridement Subcutaneous Subcutaneous -Tissue Removed Subcutaneous Subcutaneous -Post Debridement (cm) - Length 3.8 1.9 -Post Debridement (cm) - Width 1.0 0.5 -Post Debridement (cm) - Depth 0.1 0.1 -Total Square (Post) (cm) 3.80 0.95 -Area of Debridement (cm) - Length 3.8 1.9 -Area of Debridement (cm) - Width 1.0 0.5 -Total Square (Area) (cm) 3.80 0.95 -Tunneling No No -Undermining/Tunneling No No -Circular Undermining No No -Wound/Ulcer Outcome Not Healed Not Healed -Ulcer Cleansing Rinsed/ Rinsed/ Irrigated with Irrigated with Saline Saline -Foul Odor after Cleansing No No -Bioengineered Tissue Yes Yes -Type of Bioengineered Tissue Epifix Mesh Epifix -Expiration Date 03/20/25 02/17/25 -Product Lot Number [id number] -Percent Used 100 100 -Lot number of Saline Used [id number] -Bleeding Controlled with Pressure Pressure -Offloading No -Treatment Response Procedure Procedure Tolerated Well Tolerated Well -Debridement - Subq, 1st 20sq cm No No -Apply Skin Sub - 1st 25 sq cm - Legs 1 1 -Epifix (per sq cm) 4 -Epifix Mesh (per sq cm) 11 #2 R Hip -Time 10:52 11:29 -Correct Patient Yes Yes -Correct Side, Site, Position Yes Yes -Correct Procedure Yes Yes -Procedure Performed Yes Yes -Type of Procedure Debridement Debridement -Clinical Debridement Subcutaneous Muscle / Fascia -Tissue Removed Subcutaneous Muscle -Post Debridement (cm) - Length 1.0 2.5 -Post Debridement (cm) - Width 1.1 1.5 -Post Debridement (cm) - Depth 2.6 2.2 -Total Square (Post) (cm) 1.10 3.75 -Area of Debridement (cm) - Length 1.0 2.5 -Area of Debridement (cm) - Width 1.1 1.5 -Total Square (Area) (cm) 1.10 3.75 -Tunneling No Yes -Tunneling Position (O'clock) 2 2 -Tunneling Distance (cm) 4.1 3.5 -Undermining/Tunneling No No -Undermining/Tunneling Starts (O'clock ) -Undermining/Tunneling Ends (O'clock) -Maximum Distance (cm) -Circular Undermining No No -Wound/Ulcer Outcome Not Healed Not Healed -Ulcer Cleansing Rinsed/ Rinsed/ Irrigated with Irrigated with Saline Saline -Foul Odor after Cleansing No No -Bioengineered Tissue No No -Bleeding Controlled with Pressure -Offloading No -Treatment Response -Debridement - Subq, 1st 20sq cm Yes -Debridement - Muscle / Fascia, 1st Yes 20sq cm #1 R ankle -Time 10:53 11:29 -Correct Patient Yes Yes -Correct Side, Site, Position Yes Yes -Correct Procedure Yes Yes -Procedure Performed No Yes -Type of Procedure Debridement Debridement -Clinical Debridement Subcutaneous Subcutaneous -Tissue Removed Subcutaneous Subcutaneous -Post Debridement (cm) - Length 1.1 1.2 -Post Debridement (cm) - Width 0.7 1.0 -Post Debridement (cm) - Depth 0.3 0.3 -Total Square (Post) (cm) 0.77 1.20 -Area of Debridement (cm) - Length 1.1 1.2 -Area of Debridement (cm) - Width 0.7 1.0 -Total Square (Area) (cm) 0.77 1.20 -Tunneling No No -Undermining/Tunneling No No -Circular Undermining No No -Wound/Ulcer Outcome Not Healed Not Healed -Ulcer Cleansing Rinsed/ Rinsed/ Irrigated with Irrigated with Saline Saline -Foul Odor after Cleansing No No -Bioengineered Tissue No No -Bleeding Controlled with Pressure Pressure -Offloading No -Treatment Response Procedure Tolerated Well -Debridement - Subq, 1st 20sq cm No No Pain Scale: 0-10 Numeric Is Patient Pain Free? Yes Yes WC - Nurse 3 - General Ulcer D/C NN Start: 05/19/20 11:43 Freq: Status: Active Protocol: Activity Type Activity Date Activity User E-Sign Co-Sign Detail Recorded Client Recorded Date Recorded By Document 05/19/20 15:39 PL [id number] 05/19/20 16:00 PL Document 05/26/20 12:05 KR [id number] 05/26/20 12:06 KR Document 06/02/20 11:49 [facility] [id number] 06/02/20 11:52 BMF Document 06/09/20 12:44 PL [id number] 06/09/20 12:46 PL Edit Result 06/09/20 12:44 PL (1) [id number] 06/12/20 06:35 PL Document 06/16/20 12:05 BMF [id number] 06/16/20 12:07 BMF (1) Right - Multi-Layered Wrap Application => Multi-Layer Comp - => Right ($) 05/19/20 05/26/20 06/02/20 15:39 12:05 11:49 Pain Scale: 0-10 Numeric Is Patient Pain Free? Yes Yes Yes Wound Care Nurse 3 #4 Right Lat Foot -Other Dressing epifix -Primary Dressing Covered/Secured with Dry Gauze, Dry Gauze Secured with Tape -Other Covering unna per kr ceramic capacitor processor #3 R Lat LE -Other Dressing epifix -Primary Dressing Covered/Secured with Dry Gauze, Dry Gauze Secured with Tape -Other Covering unna per kr ceramic capacitor processor #2 R Hip -Ulcer Cleansing Rinsed/ Irrigated with Saline -Foul Odor after Cleansing No -Negative Pressure Wound Therapy Continue Continue -Setting (mmHg) 150 125 -Negative Pressure is Continuous Continuous -Other Dressing epifix -NPWT Application Charge ($) NPWT </= 50 sq NPWT </= 50 sq cm cm #1 R ankle -Ulcer Cleansing Rinsed/ Rinsed/ Irrigated with Irrigated with Saline Saline -Foul Odor after Cleansing No No -Other Dressing epifix -Primary Dressing Covered/Secured with Dry Gauze, Dry Gauze Secured with Tape -Other Covering unna per kr ceramic capacitor processor BLE -Multi-Layered Wrap Application Unna Boot - Bilateral ($) -Unna Boots (Bilat) ($) 1 -Other PER KR [employer] Right -Multi-Layered Wrap Application Unna Boot - Unna Boot - Right ($) Bilateral ($) -Compression Wrap -Unna Boots (Bilat) ($) 2 Left -Multi-Layered Wrap Application Multi-Layer Comp - Left ($) Treatment Response Procedure Tolerated Well WC - Visit Discharge Discharge Condition Stable Stable Stable Ambulatory Status Wheelchair Wheelchair Wheelchair Transportation Private Auto Private Auto Private Auto Accompanied by devan BRAGG Clinical Summary of Care Provided Yes Facility Type Home Health 06/09/20 06/16/20 12:44 12:05 Pain Scale: 0-10 Numeric Is Patient Pain Free? Yes Wound Care Nurse 3 #4 Right Lat Foot -Other Dressing ABD epifix -Primary Dressing Covered/Secured with -Other Covering unna boot per kr ceramic capacitor processor #3 R Lat LE -Other Dressing abd epifix -Primary Dressing Covered/Secured with -Other Covering unna boot per kr ceramic capacitor processor #2 R Hip -Ulcer Cleansing Rinsed/ Irrigated with Saline -Foul Odor after Cleansing No -Negative Pressure Wound Therapy Continue Continue -Setting (mmHg) 125 150 -Negative Pressure is Continuous Continuous -Other Dressing -NPWT Application Charge ($) NPWT </= 50 sq NPWT </= 50 sq cm cm #1 R ankle -Ulcer Cleansing -Foul Odor after Cleansing -Other Dressing ABD epifix -Primary Dressing Covered/Secured with -Other Covering unna boot per kr ceramic capacitor processor BLE -Multi-Layered Wrap Application -Unna Boots (Bilat) ($) -Other Right -Multi-Layered Wrap Application Multi-Layer Unna Boot - Comp - Right ($ Right ($) ) -Compression Wrap Unna Boot ($) ( single) -Unna Boots (Bilat) ($) Left -Multi-Layered Wrap Application Treatment Response Procedure Tolerated Well WC - Visit Discharge Discharge Condition Stable Ambulatory Status Wheelchair Transportation Private Auto Accompanied by tara bragg Clinical Summary of Care Provided Facility Type Home Health Wound debrided: Right ankle ulcer Laterality: Right Wound Grade/Stage: Mendez 1 Type of Debridement: Excisional debridement Anesthesia Used: 4% Lidocaine Solution and Cetacaine Depth: in the subcutaneous layer Percentage of wound debrided: 100 Instrument Used: 5mm curette Tissue Removed: Slough and devitalized tissue Severity: Fat Layer Exposed Amount of bleeding with debridement: Mild Bleeding Controlled with: Pressure Patient tolerated procedure: Patient tolerated procedure well Additional Wound Wound debrided: Right leg ulcer Laterality: Right Wound Grade/Stage: Stage II Type of Debridement: Excisional debridement Anesthesia Used: 4% Lidocaine Solution and Cetacaine Depth: in the subcutaneous layer Percentage of wound debrided: 100 Instrument Used: 5mm curette Tissue Removed: Slough and devitalized tissue Severity: Fat Layer Exposed Amount of bleeding with debridement: Mild Bleeding Controlled with: Pressure Patient tolerated procedure: Patient tolerated procedure well Additional Wound Wound debrided: Right hip ulcer Laterality: Right Wound Grade/Stage: Stage IV Type of Debridement: Excisional debridement Anesthesia Used: 4% Lidocaine Solution and Cetacaine Depth: to muscle Percentage of wound debrided: 100 Instrument Used: 5mm curette Tissue Removed: Slough and devitalized tissue Severity: Fat Layer Exposed Amount of bleeding with debridement: Mild Bleeding Controlled with: Pressure Patient tolerated procedure: Patient did not tolerate procedure well
== END 2020-06-16 23:59 ==
LOC: WC 10:30
PROVIDERS: PCP Student in an Organized Health Care Education/Training Program; Referring Provider Family Medicine; Visit Provider Nurse Practitioner Family
DX: E11.622 Type 2 diabetes mellitus with other skin ulcer (principal); E11.621 Type 2 diabetes mellitus with foot ulcer; L97.312 Non-pressure chronic ulcer of right ankle with fat layer exposed; L97.812 Non-pressure chronic ulcer of other part of right lower leg with fat layer exposed; L97.512 Non-pressure chronic ulcer of other part of right foot with fat layer exposed; L89.214 Pressure ulcer of right hip, stage 4; F10.20 Alcohol dependence, uncomplicated; E78.5 Hyperlipidemia, unspecified; I10 Essential (primary) hypertension; Z72.0 Tobacco use; Z86.14 Personal history of Methicillin resistant Staphylococcus aureus infection
CPT/HCPCS: 11042; 11043; 15271; 29580; 29581; 87070; 87075; 87077; 87186; 87205; 97605; Q4186

== ENCOUNTER 2020-06-19 16:45 | Emergency (ER) | payer MEDICARE, SELFPAY ==
[2020-06-19 16:45] VITALS: BP 110/58; PULSE 68; RESP 17; TEMP 36.1; O2SAT 98; BMI 22.6
--- NOTE | 2020-06-19 18:13 | EDS_ITS ---
HPI History of Present Illness Chief Complaint: Wound Narrative Narrative: Patient has been following with the wound center for right lower extremity wounds that he received as a result of lying on the floor for 5 days in January when he had a stroke. He apparently had soft tissue damage in his right buttock/hip and other areas more distally as a result of lying there with pressure necrosis I assume. The practitioners at the wound care center were concerned about his right hip and did a culture 2 days ago, it returned positive and the patient states he was sent here for IV antibiotics. He denies any fevers, chills, or any other systemic symptoms. He states he has chronic pain in this wound, it is controlled, and has not been worse. He states he has not been concerned about the appearance of it, but the wound center was. He has a wound VAC on it at all times. [facility] Medical History (Updated 06/19/20 @ 20:[address] Geoff Hood MD) Alcoholism Bipolar disorder Decubitus ulcer of right hip, stage 4 Diabetes mellitus type 2 in nonobese Diabetic ulcer of right foot Essential tremor Hyperlipidemia Hypertension Stroke Home Medications Gralise 600 mg PO QHS 09/12/16 [History Last Taken Unknown] metoprolol succinate 100 mg PO DAILY 09/12/16 [History Last Taken Unknown] atorvastatin [Lipitor] 40 mg PO DAILY 09/13/16 [History Last Taken Unknown] bacitracin zinc 1 applic TOPICAL TID #1 tube 09/18/16 [Rx Last Taken Unknown] aspirin 81 mg PO DAILY 06/19/20 [History Last Taken Unknown] cefdinir 300 mg PO BID 10 Days #20 cap 06/19/20 [Rx Last Taken Unknown] levothyroxine [Synthroid] 25 mcg PO DAILY 06/19/20 [History Last Taken Unknown] lorazepam 1 mg PO Q8H PRN PRN 06/19/20 [History Last Taken Unknown] terazosin 5 mg PO DAILY 06/19/20 [History Last Taken Unknown] tramadol 50 mg PO Q12H PRN PRN 06/19/20 [History Last Taken Unknown] Allergy/AdvReac Type Severity Reaction Status Date / Time No Known Allergies Allergy Verified 06/19/20 16:47 Social History (Updated 06/19/20 @ 18:[address] Geoff Hood MD) household members: family Smoking Status: Current every day smoker ROS ROS ED Constitutional Constitutional ED: Denies chills or fever(s) Eyes Eyes: Denies change in vision or diplopia ENT ENT ED: Denies rhinorrhea or sore throat Cardiovascular Cardiovascular: Denies chest pain or palpitations Respiratory/Chest Respiratory/Chest: Denies cough or dyspnea Gastrointestinal Gastrointestinal: Denies abdominal pain, diarrhea, nausea or vomiting Genitourinary Genitourinary ED: Denies dysuria or hematuria Musculoskeletal Musculoskeletal: Reports as per HPI and extremity pain; Denies back pain or neck pain Integumentary Denies abscess or rash Neurologic Neurologic: Reports paresthesias and weakness; Denies headache(s) Psychiatric Psychiatric: Denies anxiety or suicidal thoughts EXAM Physical Exam Const Vital Signs: 06/19/20 16:45 Temperature 97 F L Temperature Source Temporal Pulse Rate 68 Respiratory Rate 17 Blood Pressure 110/58 L Blood Pressure Mean 75 Pulse Ox 98 Oxygen Delivery Method Room Air Positive well nourished and well developed General Appearance ED: well developed and NAD HEENT Reports moist mucous membranes normocephalic and atraumatic Eyes PERRL and EOMs intact bilaterally Neck full ROM and supple Resp normal respiratory effort and clear to auscultation bilaterally Cardio regular rate and regular rhythm GI non-tender and non-distended Auscultation: normoactive bowel sounds Palpation: soft Back/Spine no CVA tenderness General Back: other FROM Extremity normal to inspection General Extremety ED: Negative for edema, pulses abnormal or tenderness General Extremity: Negative for edema or pulses abnormal Neuro oriented x3 and CN's II-XII intact bilaterally Sensorium / Orientation: awake and alert Sensory Exam: other decreased RUE and RLE, chronic/stable since stroke Coordination: other (decreased strength RUE and RLE, chronic/stable since stroke) Skin no rashes or lesions noted Wounds: wounds noted other Right buttock, wound VAC intact with foam, no surrounding erythema or discharge apparent MDM MDM MDM Narrative Medical decision making narrative: Lab work is reviewed as below, lactate within normal limits, white blood count within normal limits, patient's vital signs are normal and he is not clinically septic. States he feels well. He was offered admission as I was unable to get a hold of anyone with wound care after hours, trying to contact the person who is caring for him in the clinic. We did review his culture results which appears to be group B strep, sensitive to everything it was tested for except clindamycin. He was given a dose of IV Unasyn here. He does not want to stay in hospital. For this reason he was discharged on cefdinir since it is a third-generation cephalosporin and the culture was sensitive to ceftriaxone. Lab Data Attestation: I reviewed the patient's lab results. Labs: Laboratory Results - last 24 hr 06/19/20 06/19/20 06/19/20 19:05 19:05 19:05 WBC 10.0 RBC 4.18 L Hgb 12.3 L Hct 37.5 L MCV 89.7 MCH 29.4 MCHC 32.8 RDW Std Deviation 54.7 H RDW Coeff of Ed 16.6 H Plt Count 250 MPV 10.7 Immature Gran % (Auto) 0.400 Neut % (Auto) 67.1 Lymph % (Auto) 21.2 Waller % (Auto) 9.4 Eos % (Auto) 1.5 Baso % (Auto) 0.4 Absolute Neuts (auto) 6.7 Absolute Lymphs (auto) 2.12 Nucleated RBC % 0 Sodium 135 L Potassium 5.4 H Chloride 103 Carbon Dioxide 24.0 Anion Gap 8 BUN 22 H Creatinine 0.99 Estim Creat Clear Calc 60.58 Est GFR (MDRD) Af Amer 96 Est GFR (MDRD) Non-Af 79 BUN/Creatinine Ratio 22.3 H Glucose 99 Lactic Acid 1.7 Calcium 9.1 Total Bilirubin 0.40 AST 55 H ALT 47 Alkaline Phosphatase 106 Total Protein 8.1 Albumin 3.6 Globulin 4.5 H Albumin/Globulin Ratio 0.8 L Discharge Plan Triage Chief Complaint: Wound ED Provider: Geoff Hood Dx/Rx/DC Orders Clinical Impression: Wound infection Instructions: ED Wound Check (Infection) Prescriptions: New cefdinir 300 mg capsule 300 mg PO BID 10 Days Qty: 20 RF: 0 No Action metoprolol succinate 100 MG tablet extended release 24 hr 100 mg PO DAILY RF: 0 Gralise 600 MG tablet extended release 24 hr 600 mg PO QHS RF: 0 atorvastatin [Lipitor] 40 MG tablet 40 mg PO DAILY RF: 0 bacitracin zinc 1 APPLIC ointment 1 applic topical TID Qty: 1 RF: 0 terazosin 5 mg capsule 5 mg PO DAILY RF: 0 tramadol 50 mg tablet 50 mg PO Q12H PRN PRN (Reason: Pain) RF: 0 levothyroxine [Synthroid] 25 mcg Tablet 25 mcg PO DAILY RF: 0 aspirin 81 mg Tablet 81 mg PO DAILY RF: 0 lorazepam 1 mg tablet 1 mg PO Q8H PRN PRN (Reason: Anxiety) RF: 0 Primary Care Provider: Abelardo Adamson Referrals: Abelardo Adamson DO [Primary Care Provider] - (And/or wound center) Disposition Disposition: Home, self care
--- NOTE | 2020-06-19 19:14 | ED.RN ---
Pt requesting Ativan 1mg d/t not liking being in the hospital. Pt upset that wound doctor sent him in. Pt states he takes Ativan at home when he gets like this. Dr. Hood updated and orders entered.
[2020-06-19 19:17] LABS: Absolute Lymphocyte Count 2.12 X10^3/uL (0.83-4.51); Absolute Neutrophil Count 6.7 X10^3/uL (2.0-7.7); Basophil# 0.04 X10^3/uL; Basophil% 0.4 % (0-1); Eosinophil# 0.15 X10^3/uL; Eosinophils% 1.5 % (0-5); Hematocrit 37.5 % (40-54); Hemoglobin 12.3 g/dL (13.0-16.5); Lymphocyte # 2.12 X10^3/ul (0.83-4.51); Lymphocyte % 21.2 % (19-41); Mean Corp Hgb Conc 32.8 g/dL (32-36); Mean Corpuscular Hgb 29.4 pg (27.0-32.0); Mean Corpuscular Volume 89.7 fL (80-94); Mean Platelet Vol. 10.7 fl (6.2-12.0); Monocyte# 0.94 X10^3/uL; Monocyte% 9.4 % (0-10); NRBC Flagged by Analyzer 0 % (0-5); Neutrophil # 6.71 X10^3/uL (2.7-7.7); Neutrophil % 67.1 % (47-70); Platelet Count 250 K/mm3 (150-450); RBC Distribution Width CV 16.6 % (11.6-14.6); RBC Distribution Width SD 54.7 fl (35.1-43.9); Red Blood Count 4.18 M/mm3 (4.6-6.2)
[2020-06-19] MEDS: LORazepam 1 MG Tablet PO (19:17)
[2020-06-19 20:03] LABS: ALB/GLOB Ratio 0.8 RATIO (0.9-2.4); AST(SGOT) 55 U/L (15-37); Alanine Aminotransfer ALT/SGPT 47 U/L (16-61); Albumin, Serum 3.6 g/dL (3.2-5.0); Alkaline Phosphatase 106 U/L (45-117); Anion Gap 8 (5-15); BUN 22 mg/dL (7-18); BUN/Creat Ratio 22.3 RATIO (10-20); Calcium,Total 9.1 mg/dL (8.5-10.1); Chloride 103 mmol/L (98-107); Creatinine, Serum 0.99 mg/dL (0.70-1.30); EST Glomerular Filtration Rate 79 mL/min (>60); Est Glom Filt Rate - Afr Amer 96 mL/min (>60); Estimated Creatinine Clearance 60.58 ml/min; Globulin 4.5 g/dL (2.2-4.2); Glucose 99 mg/dL (74-106); Lactic Acid 1.7 mmol/L (0.4-1.9); Potassium 5.4 mmol/L (3.5-5.1); Protein, Total 8.1 g/dL (6.4-8.2); Sodium Level 135 mmol/L (136-145)
[2020-06-19 21:41] VITALS: BP 115/74; PULSE 69; RESP 14; O2SAT 99
== END 2020-06-19 21:53 | disposition home or self-care (01) ==
PROVIDERS: Emergency Provider Emergency Medicine; PCP Student in an Organized Health Care Education/Training Program
DX: S31.819A Unspecified open wound of right buttock, initial encounter (principal); I10 Essential (primary) hypertension; F17.200 Nicotine dependence, unspecified, uncomplicated; E78.5 Hyperlipidemia, unspecified; Z79.82 Long term (current) use of aspirin; Z79.899 Other long term (current) drug therapy; X58.XXXA Exposure to other specified factors, initial encounter
CPT/HCPCS: 80053; 83605; 85025; 87040; 96365; 99285; J7050; A4216; J0295

== ENCOUNTER 2020-07-14 10:30 | Outpatient (RCR) | payer MEDICARE, SELFPAY ==
[2020-06-17 00:42] VITALS: BP 112/43; PULSE 84; RESP 16; TEMP 35.8
[2020-06-23 10:17] VITALS: BP 132/60; PULSE 82; TEMP 36.2; BMI 22.6
--- NOTE | 2020-06-23 12:03 | RAD_ITS ---
STUDY: X-RAY - PELVIS AND RIGHT HIP REASON FOR EXAM: Male, 74 years old. Nonhealing wound. TECHNIQUE: 3 views of the pelvis and hip. COMPARISON: None. FINDINGS: There is a non-specific bowel gas pattern. Soft tissue ulceration lateral to the proximal right femur. No bone resorption to suggest osteomyelitis. Vascular calcification. Normal bilateral iliac wings, sacroiliac joints and visualized sacrum. Normal bilateral superior and inferior pubic rami. Normal pubic symphysis. Normal bilateral ischial tuberosities. Mild arthrosis of both hips. RAD/HIP, UNI W/ Pelvis 2-3 Views IMPRESSION: Soft tissue ulceration lateral to the proximal right femur. No bone resorption to suggest osteomyelitis. Electronically Signed: Chris Butt MD at 12:20 EDT , Service support ,
--- NOTE | 2020-06-23 13:19 | PCM.WC.PN ---
History of Present Illness Date of Service: 06/23/20 Chief Complaint: Ulcers of right foot, right ankle, right lateral leg, and right hip History of Wound: The patient presents to the wound healing center today, 04/07/2020, for an initial evaluation of right lower extremity ulcers of the foot, ankle, lateral leg and hip. He has a past medical history significant for type 2 diabetes mellitus, hypertension, hyperlipidemia, anemia, tobacco use and alcoholism. He states he has been sober for about 4 months. He no longer takes Metformin, and states this was discontinued due to causing renal insufficiency. He states his diabetes is currently managed with diet and exercise, though he has been not unable to exercise in recent months. He states that in December he suffered a fall and laid on the ground for 5 days, during which time he developed these ulcers. He reports subsequent impaired movement and sensation of his right lower extremity from the mid lower leg to his toes. He was admitted to a fdc following hospitalization, and was receiving wound debridement approximately every 2 weeks. Santyl was used on the ulcers of his right lower leg, ankle and foot. A wound VAC was used for his right hip ulcer. He was discharged from the fdc on 04/03/2020, at which time the wound VAC was discontinued. Since 04/03/2020, the patient has been using wet to dry gauze dressings to the right hip daily. He is receiving home health care from [facility]. He reports he is able to ambulate with the use of a walker, and also uses a wheelchair at times. He denies any fever or chills. He states there was a concern for infection in his right lateral leg ulcer, and he was started on doxycycline, which he is currently taking. He reports occasional nausea, but denies vomiting or diarrhea. He also reports a decreased appetite. He denies any recent copious, purulent, or foul-smelling drainage from his ulcers. Progress of Wound: Rosendo returns today for a follow-up visit. He has been using a wound VAC to his right hip ulcer and is tolerating this well. The wound opening continues to close more quickly than his tunnel is filling in. A culture was collected from the right hip last week and demonstrated 1+ Streptococcus agalactiae (B). 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 He had reported to my child welfare caseworker that he would be presenting to [facility]. Report was called to [facility]. However, patient ended up presenting to [facility] emergency department, where he received a dose of IV Unasyn and was discharged on cefdinir. He is currently finishing his course of cefdinir. Labs were done while he was at the hospital on 06/19/2020. Preliminary blood cultures are negative. His CBC demonstrated anemia. His potassium level was elevated, but the lab report notes moderate hemolysis which may falsely increase this level. His lactic acid level was normal. A CMP was otherwise unremarkable. His right leg ulcer is significantly improved in size and appearance since last week with the use of epifix. His right ankle ulcer is improved in size this week. No signs of infection present. His right foot ulcer remains healed. The patient denies fever, chills, nausea, vomiting, or diarrhea. Objective Data Objective Data Vital Signs: Vital Signs Temp Pulse Resp BP 97.2 F L 82 16 132/60 H 06/23/20 10:17 06/23/20 10:17 06/17/20 00:42 06/23/20 10:17 Body Mass Index (BMI) 22.6 Radiography Diagnostic Testing: Radiology Impression Hip/Pelvis X-Ray 06/23/20 12:03 IMPRESSION: Soft tissue ulceration lateral to the proximal right femur. No bone resorption to suggest osteomyelitis. Electronically Signed: Chris Butt MD at 12:20 EDT , Service support , Assessment & Plan Assessment/Plan (1) Diabetic ulcer of right ankle: (2) Diabetic ulcer of right lower leg: (3) Decubitus ulcer of right hip, stage 4: (4) Diabetes mellitus type 2 in nonobese: (5) Hypertension: QUALIFIERS: Hypertension type: essential hypertension Qualified Code(s): I10 - Essential (primary) hypertension (6) Hyperlipidemia: QUALIFIERS: Hyperlipidemia type: unspecified Qualified Code(s): E78.5 - Hyperlipidemia, unspecified (7) Alcoholism: (8) Bipolar disorder: QUALIFIERS: Active/Remission status: remission status unspecified Qualified Code(s): F31.9 - Bipolar disorder, unspecified PLAN: Debridement performed today in clinic. Right hip wound packed with Aquacel Ag rope. Given the duration of the wound and failure of the wound to respond to standard wound care, we applied for advanced skin substitutes and were approved for Epifix. Epifix #5 applied to the right lateral leg ulcer, 100% of the product was used. Epifix was covered with Adaptic touch and secured with Steri-Strips. Right ankle ulcer covered with Aquacel Ag. Unna boot applied to right lower extremity. (3M wrap was previously not well tolerated.) At home wound-care instructions: The patient is to keep Unna boot clean and dry. If he notices numbness/tingling of the toes or discoloration of the toes, he is to contact the wound healing center or report to the emergency department. The patient's home health care nurse comes out on Mondays and Wednesdays. His right hip ulcer was packed today with Aquacel Ag rope. He was instructed to change the dressing tomorrow and replace with regular Aquacel Ag dressing. (He/support person do not feel comfortable with packing wound at home.) On Mondays and Wednesdays, the nurse will pack the right hip wound and tunnel with Aquacel Ag rope. Rope packing is not to be left in for more than 24 hours. Patient/support person should remove Aquacel Ag rope packing at 24 hours and replace with regular Aquacel Ag dressing. Off-loading: Avoid pressure at ulcer sites. Avoid prolonged standing or dangling of the legs. When seated, keep feet elevated at chest level. If Unna boots begin to feel tight, elevate the feet. A Roho cushion was ordered for the patient to use when utilizing his wheelchair. He was instructed on appropriate offloading when seated/lying down. Frequent position changes were encouraged. Diet: Patient encouraged to increase protein and vitamin C intake while taking caution to avoid high carbohydrate and/or sugar intake. Labs/cultures/imaging: He completed a course of doxycycline on 04/11/2020. Patient's right hip culture from 04/07/2020 was positive for 1+ MRSA (susceptible to Bactrim), and he was started on Bactrim by his PCP on 04/11/20. Patient's right lower leg culture from 04/14/2020 was positive for rare MRSA (susceptible to Bactrim). Bactrim was continued. He later developed right lower extremity erythema, warmth, and swelling which spread to the left lower extremity as well. Bactrim was discontinued and he was started on Clindamycin 450mg PO TID x 10 days. (Cultures showed susceptibility to clindamycin, and negative for inducible clindamycin resistance.) With initiation of clindamycin, the patient and his caregiver reported significant improvement in the erythema and edema of his bilateral lower extremities. Clindamycin was continued for another 7 days. Due to clinical signs of infection, new cultures were collected from the right hip on 04/28/2020, which were positive for 3+ Stenotrophomonas maltophilia and 1+ corynebacterium striatum. Susceptibility studies showed susceptibility of Stenotrophomonas maltophilia to levofloxacin and Bactrim. Anaerobic studies were negative. The patient was started on levofloxacin 750 mg once daily for 7 days. Per his primary care provider, this was not well-tolerated (caused weakness and confusion) and his primary care provider discontinued levofloxacin and started him on Bactrim; side effects resolved with antibiotic change. He completed his course of Bactrim. He was started on doxycycline by his PCP on approximately 05/30/2019 for a UTI. He has been off of antibiotics for approximately 1 week now. Cultures again collected from the right hip on 06/16/2020 demonstrated 1+ Streptococcus agalactiae (B). 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 He had reported to my child welfare caseworker that he would be presenting to [facility]. Report was called to [facility]. However, patient ended up presenting to [facility] emergency department, where he received a dose of IV Unasyn and was discharged on cefdinir. He is currently finishing his course of cefdinir. Labs were done while he was at the hospital on 06/19/2020. Preliminary blood cultures are negative. His CBC demonstrated anemia. His potassium level was elevated, but the lab report notes moderate hemolysis which may falsely increase this level. His lactic acid level was normal. A CMP was otherwise unremarkable. A right hip x-ray was ordered today. This revealed no bone reabsorption to suggest osteomyelitis. Follow-up: Return to clinic in 1 week for re-evaluation. A consult will be scheduled with Dr. Fenton (plastic surgeon) at the wound healing center for 07/03/2020 due to concern regarding right hip ulcer with deep tunneling which may require unroofing/surgical debridement. Return sooner or report to the emergency room should symptoms worsen, or new symptoms arise. We have discussed in great detail the clinical signs of infection or worsening overall condition and emphasized the importance of seeking emergency medical care should these occur. Note: [email or web address] speech recognition provider network analyst software was used to create portions of this document. Sound-alike and misspelled words, as well as other provider network analyst errors may be contained in the documentation. Charges/Coding Procedures Integumentary 111xxx-113xx: 52398 Berna musc/fascia 20 sq cm/< 150xxx-152xx: 83889 Skin sub graft trnk/arm/leg Physical Exam Const alert and no apparent distress General Appearance: cooperative, comfortable, well kempt and frail HEENT Head and Scalp: normocephalic and atraumatic Neck supple Resp normal respiratory effort and normal air movement GI non-distended Extremity normal capillary refill, no joint enlargement and no calf tenderness General Extremity: edema right lower extremity mild; Negative for clubbing or cyanosis Peripheral Pulses: Yes dorsalis pedis pulses present right 2+ Skin Wounds: wounds noted No malodorous Wound Narrative: 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 Tunneling is deeper this week. Ulcer opening is smaller in size this week. Ulcer does not probe to bone. No purulent/malodorous drainage. Right lateral leg ulcer is significantly improved in size and appearance. Good granulation tissue present. No periulcer warmth or edema. Tender to palpation. Right ankle ulcer is slightly improved in size today. Good granulation tissue is present. No periulcer warmth or erythema present. Right foot ulcer remains healed. Neuro moves all extremities Sensorium / Orientation: awake and alert Psych mental status grossly normal, cooperative and affect normal Appearance: grossly normal Debridement Note Debridement Note Post-Debridement Measurements and Additional Note: Post-Debridement Measurements/Treatment DELVIS - Nurse 1 - General Ulcer Assessment Start: 06/23/20 10:17 Freq: Status: Active Protocol: LOCEXBrandon Activity Type Activity Date Activity User E-Sign Co-Sign Detail Recorded Client Recorded Date Recorded By Document 06/23/20 10:17 HARDIK [id number] 06/23/20 10:27 HARDIK 06/23/20 10:17 - Today's Visit Information Type of service Follow-up Visit (Physician/RADIOLOGY CLERK ) Arrival Mode Ambulatory Patient Identification Verified (Name & Yes ) Height and Weight Body Mass Index (BMI) 22.6 BMI Classification Normal Vital Signs Temperature (97.8 F-99.1 F) 97.2 F L Temperature Source Temporal Pulse Rate (60-100) 82 Pulse Location Monitor Blood Pressure (90/60-120/80) 132/60 H Blood Pressure Mean (mm Hg) 84 Source Monitor Position Semi-Fowlers Blood Pressure Location Left Arm History Since Last Visit- (Skip if this is Patient's initial visit) Have you changed medications since your No last visit? Any new allergies or adverse reactions No Had a fall/change in ADL's that may No increase risk of falls Signs or symptoms of abuse and/or No neglect since last visit Have you been in the hospital since your No last visit? Has dressing in place as prescribed Yes Has compression in place as prescribed Yes Has offloadiing in place as prescribed N/A Experienced any changes in pain level or No management Left Footwear Regular Shoe Right Footwear Regular Shoe Pain Scale: 0-10 Numeric Is Patient Pain Free? Yes - Nurse 1 - General Ulcer Measurement Start: 06/23/20 10:17 Freq: Status: Active Protocol: Activity Type Activity Date Activity User E-Sign Co-Sign Detail Recorded Client Recorded Date Recorded By Document 06/23/20 10:17 HARDIK [id number] 06/23/20 10:27 HARDIK 06/23/20 10:17 Wound Center Nurse 1 #4 Right Lat Foot -Current Size (cm) - Length 0.1 -Current Size (cm) - Width 0.1 -Current Size (cm) - Depth 0.1 -Total Square Cm 0.01 -Exudate Amt None Present -Wound Margin Distinct, Outline Attached -Granulation Amt Small (1-33%) -Granulation Quality Hyper- granulation -Necrosis Amt None Present (0 %) -Texture (Cammie-wound Skin Appearance) Assessed, Scarring -Moisture (Cammie-wound Skin Appearance) No Abnormality, Assessed -Color (Cammie-wound Skin Appearance) Assessed -Temperature (Cammie-wound Skin No Abnormality Appearance) (Pt Warm) -Tenderness on Palpation (Cammie-wound No Skin Appearance) -Ulcer Cleansing soap and water -Anesthetic Used 4% Lidocaine Solution #3 R Lat LE -Current Size (cm) - Length 0.1 -Current Size (cm) - Width 0.1 -Current Size (cm) - Depth 0.1 -Total Square Cm 0.01 -Exudate Amt Small -Exudate Type Serosanguineous -Wound Margin Distinct, Outline Attached -Granulation Amt Medium (34-66%) -Granulation Quality Hyper- granulation -Necrosis Amt None Present (0 %) -Necrotic Tissue Type Adherent Slough -Texture (Cammie-wound Skin Appearance) Assessed, Scarring -Moisture (Cammie-wound Skin Appearance) No Abnormality, Assessed -Color (Cammie-wound Skin Appearance) No Abnormality, Assessed -Temperature (Cammie-wound Skin No Abnormality Appearance) (Pt Warm) -Tenderness on Palpation (Cammie-wound No Skin Appearance) -Ulcer Cleansing soap and water -Anesthetic Used 4% Lidocaine Solution #2 R Hip -Current Size (cm) - Length 1.3 -Current Size (cm) - Width 0.6 -Current Size (cm) - Depth 3.1 -Total Square Cm 0.78 -Exudate Amt Medium -Exudate Type Serosanguineous -Wound Margin Distinct, Outline Attached -Granulation Amt Medium (34-66%) -Granulation Quality Red -Necrosis Amt Medium (34-66%) -Necrotic Tissue Type Adherent Slough -Texture (Cammie-wound Skin Appearance) Assessed, Scarring -Moisture (Cammei-wound Skin Appearance) No Abnormality, Assessed -Color (Cammie-wound Skin Appearance) No Abnormality, Assessed -Temperature (Cammie-wound Skin No Abnormality Appearance) (Pt Warm) -Tenderness on Palpation (Cammie-wound No Skin Appearance) -Ulcer Cleansing soap and water -Anesthetic Used 4% Lidocaine Solution #1 R ankle -Current Size (cm) - Length 0.1 -Current Size (cm) - Width 0.1 -Current Size (cm) - Depth 0.1 -Total Square Cm 0.01 -Exudate Amt None Present -Wound Margin Distinct, Outline Attached -Granulation Amt None Present (0 %) -Necrosis Amt None Present (0 %) -Texture (Cammie-wound Skin Appearance) Assessed, Scarring -Moisture (Cammie-wound Skin Appearance) No Abnormality, Assessed -Color (Cammie-wound Skin Appearance) No Abnormality, Assessed -Temperature (Cammie-wound Skin No Abnormality Appearance) (Pt Warm) -Tenderness on Palpation (Cammie-wound No Skin Appearance) -Ulcer Cleansing soap and water -Foul Odor after Cleansing No -Anesthetic Used 4% Lidocaine Solution Right Calf (cm) 27.3 Right Ankle (cm) 19.7 - Nurse 3 - General Ulcer D/C NN Start: 06/23/20 10:17 Freq: Status: Active Protocol: Activity Type Activity Date Activity User E-Sign Co-Sign Detail Recorded Client Recorded Date Recorded By Document 06/23/20 12:41 VIELKA [id number] 06/23/20 12:44 VIELKA 06/23/20 12:41 Wound Care Nurse 3 #4 Right Lat Foot -Ulcer Cleansing Rinsed/ Irrigated with Saline -Foul Odor after Cleansing No -Primary Dressing Covered/Secured with Dry Gauze & Roll Gauze, Secured with Tape #3 R Lat LE -Ulcer Cleansing Rinsed/ Irrigated with Saline -Foul Odor after Cleansing No -Primary Dressing Covered/Secured with Dry Gauze & Roll Gauze, Secured with Tape #2 R Hip -Ulcer Cleansing Rinsed/ Irrigated with Saline -Foul Odor after Cleansing No -Primary Dressing Applied Aquacel AG 2x2 -Primary Dressing Covered/Secured with Dry Gauze, Secured with Tape -Aquacel AG 2x2 2 #1 R ankle -Ulcer Cleansing Rinsed/ Irrigated with Saline -Foul Odor after Cleansing No -Primary Dressing Covered/Secured with Dry Gauze, Secured with Tape Right -Compression Wrap Unna Boot ($) ( single) Pain Scale: 0-10 Numeric Is Patient Pain Free? Yes WC - Visit Discharge Discharge Condition Stable Ambulatory Status Wheelchair Transportation Private Auto Accompanied by caregiver Medication Reconcilliation completed & Yes provided to patient/care provider Clinical Summary of Care Provided Yes Wound debrided: Right hip ulcer Laterality: Right Wound Grade/Stage: Stage IV Type of Debridement: Excisional debridement Anesthesia Used: 4% Lidocaine Solution and Cetacaine Depth: Down to and including healthy tissue, in the subcutaneous layer and to muscle Percentage of wound debrided: 100 Instrument Used: 7mm curette Tissue Removed: Slough and devitalized tissue Severity: Fat Layer Exposed Amount of bleeding with debridement: Mild Bleeding Controlled with: Pressure Patient tolerated procedure: Patient did not tolerate procedure well Additional Wound Wound debrided: Right leg ulcer Laterality: Right Wound Grade/Stage: Stage II Type of Debridement: Excisional debridement Anesthesia Used: 4% Lidocaine Solution Depth: in the subcutaneous layer Percentage of wound debrided: 100 Instrument Used: 7mm curette Tissue Removed: Slough and devitalized tissue Severity: Fat Layer Exposed Amount of bleeding with debridement: Mild Bleeding Controlled with: Pressure Patient tolerated procedure: Patient tolerated procedure well Additional Wound Wound debrided: Right ankle ulcer Laterality: Right Wound Grade/Stage: Mendez 1 Type of Debridement: Excisional debridement Anesthesia Used: 4% Lidocaine Solution Depth: in the subcutaneous layer Percentage of wound debrided: 100 Instrument Used: 5mm curette Tissue Removed: Slough and devitalized tissue Severity: Fat Layer Exposed Amount of bleeding with debridement: Mild Bleeding Controlled with: Pressure Patient tolerated procedure: Patient tolerated procedure well
[2020-06-30 10:11] VITALS: BP 129/78; PULSE 81; RESP 18; TEMP 36.2; BMI 22.6
--- NOTE | 2020-06-30 15:10 | PCM.WC.PN ---
History of Present Illness Date of Service: 06/30/20 Chief Complaint: Ulcers of right foot, right ankle, right lateral leg, and right hip History of Wound: The patient presents to the wound healing center today, 04/07/2020, for an initial evaluation of right lower extremity ulcers of the foot, ankle, lateral leg and hip. He has a past medical history significant for type 2 diabetes mellitus, hypertension, hyperlipidemia, anemia, tobacco use and alcoholism. He states he has been sober for about 4 months. He no longer takes Metformin, and states this was discontinued due to causing renal insufficiency. He states his diabetes is currently managed with diet and exercise, though he has been not unable to exercise in recent months. He states that in December he suffered a fall and laid on the ground for 5 days, during which time he developed these ulcers. He reports subsequent impaired movement and sensation of his right lower extremity from the mid lower leg to his toes. He was admitted to a half-way following hospitalization, and was receiving wound debridement approximately every 2 weeks. Santyl was used on the ulcers of his right lower leg, ankle and foot. A wound VAC was used for his right hip ulcer. He was discharged from the half-way on 04/03/2020, at which time the wound VAC was discontinued. Since 04/03/2020, the patient has been using wet to dry gauze dressings to the right hip daily. He is receiving home health care from [facility]. He reports he is able to ambulate with the use of a walker, and also uses a wheelchair at times. He denies any fever or chills. He states there was a concern for infection in his right lateral leg ulcer, and he was started on doxycycline, which he is currently taking. He reports occasional nausea, but denies vomiting or diarrhea. He also reports a decreased appetite. He denies any recent copious, purulent, or foul-smelling drainage from his ulcers. Progress of Wound: Rosendo returns today for a follow-up visit. His wound VAC was discontinued last week and he was changed to Aquacel Ag packing to the right hip ulcer. The wound opening continues to close more quickly than his tunnel is filling in. His most recent culture collected from the right hip on 06/16/2020 demonstrated 1+ Streptococcus agalactiae (B). 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 He presented to [facility] emergency department, where he received a dose of IV Unasyn and was discharged on cefdinir. He has finished his course of cefdinir. Labs were done while he was at the hospital on 06/19/2020. Blood cultures were negative. His CBC demonstrated anemia. His potassium level was elevated, but the lab report notes moderate hemolysis which may falsely increase this level. His lactic acid level was normal. A CMP was otherwise unremarkable. His pelvis and right hip x-ray (06/23/2020) revealed no bone resorption to suggest osteomyelitis. His right leg ulcer is significantly improved in size and appearance since last week with the use of epifix. His right ankle ulcer is improved in size this week. No signs of infection present. His right foot ulcer remains healed. The patient denies fever, chills, nausea, vomiting, or diarrhea. He feels his appetite and energy level have improved this week. Objective Data Objective Data Vital Signs: Vital Signs Temp Pulse Resp BP 97.2 F L 81 18 129/78 H 06/30/20 10:11 06/30/20 10:11 06/30/20 10:11 06/30/20 10:11 Body Mass Index (BMI) 22.6 Assessment & Plan Assessment/Plan (1) Diabetic ulcer of right ankle: (2) Diabetic ulcer of right lower leg: (3) Decubitus ulcer of right hip, stage 4: (4) Diabetes mellitus type 2 in nonobese: (5) Hypertension: QUALIFIERS: Hypertension type: essential hypertension Qualified Code(s): I10 - Essential (primary) hypertension (6) Hyperlipidemia: QUALIFIERS: Hyperlipidemia type: unspecified Qualified Code(s): E78.5 - Hyperlipidemia, unspecified (7) Alcoholism: (8) Bipolar disorder: QUALIFIERS: Active/Remission status: remission status unspecified Qualified Code(s): F31.9 - Bipolar disorder, unspecified PLAN: Debridement performed today in clinic. Right hip wound packed with Aquacel. Given the duration of the wound and failure of the wound to respond to standard wound care, we applied for advanced skin substitutes and were approved for Epifix. Epifix #7 applied to the right lateral leg ulcer, 100% of the product was used. Epifix was covered with Adaptic touch and secured with Steri-Strips. Right ankle ulcer covered with Aquacel Ag. Unna boot applied to right lower extremity. (3M wrap was previously not well tolerated.) At home wound-care instructions: The patient is to keep Unna boot clean and dry. If he notices numbness/tingling of the toes or discoloration of the toes, he is to contact the wound healing center or report to the emergency department. The patient's home health care nurse comes out on Mondays and Wednesdays. His right hip ulcer was packed today with Aquacel. Leave packing in place until Friday. On Friday and Friday, the nurse will pack the right hip wound and tunnel with Aquacel Ag. Off-loading: Avoid pressure at ulcer sites. Avoid prolonged standing or dangling of the legs. When seated, keep feet elevated at chest level. If Unna boots begin to feel tight, elevate the feet. A Roho cushion was ordered for the patient to use when utilizing his wheelchair. He was instructed on appropriate offloading when seated/lying down. Frequent position changes were encouraged. Diet: Patient encouraged to increase protein and vitamin C intake while taking caution to avoid high carbohydrate and/or sugar intake. Labs/cultures/imaging: He completed a course of doxycycline on 04/11/2020. Patient's right hip culture from 04/07/2020 was positive for 1+ MRSA (susceptible to Bactrim), and he was started on Bactrim by his PCP on 04/11/20. Patient's right lower leg culture from 04/14/2020 was positive for rare MRSA (susceptible to Bactrim). Bactrim was continued. He later developed right lower extremity erythema, warmth, and swelling which spread to the left lower extremity as well. Bactrim was discontinued and he was started on Clindamycin 450mg PO TID x 10 days. (Cultures showed susceptibility to clindamycin, and negative for inducible clindamycin resistance.) With initiation of clindamycin, the patient and his caregiver reported significant improvement in the erythema and edema of his bilateral lower extremities. Clindamycin was continued for another 7 days. Due to clinical signs of infection, new cultures were collected from the right hip on 04/28/2020, which were positive for 3+ Stenotrophomonas maltophilia and 1+ corynebacterium striatum. Susceptibility studies showed susceptibility of Stenotrophomonas maltophilia to levofloxacin and Bactrim. Anaerobic studies were negative. The patient was started on levofloxacin 750 mg once daily for 7 days. Per his primary care provider, this was not well-tolerated (caused weakness and confusion) and his primary care provider discontinued levofloxacin and started him on Bactrim; side effects resolved with antibiotic change. He completed his course of Bactrim. He was started on doxycycline by his PCP on approximately 05/30/2019 for a UTI. He has been off of antibiotics for approximately 1 week now. Cultures again collected from the right hip on 06/16/2020 demonstrated 1+ Streptococcus agalactiae (B). 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 He presented to [facility] emergency department, where he received a dose of IV Unasyn and was discharged on cefdinir. He has completed his course of cefdinir. Labs were done while he was at the hospital on 06/19/2020. Blood cultures were negative. His CBC demonstrated anemia. His potassium level was elevated, but the lab report notes moderate hemolysis which may falsely increase this level. His lactic acid level was normal. A CMP was otherwise unremarkable. His right hip x-ray from 06/23/2020 revealed no bone reabsorption to suggest osteomyelitis. A consult will be scheduled with a plastic surgeon regarding right hip ulcer with deep tunneling which may require unroofing/surgical debridement. Follow-up: Return to clinic in 1 week for re-evaluation. Return sooner or report to the emergency room should symptoms worsen, or new symptoms arise. We have discussed in great detail the clinical signs of infection or worsening overall condition and emphasized the importance of seeking emergency medical care should these occur. Note: [employer] speech recognition mri assistant software was used to create portions of this document. Sound-alike and misspelled words, as well as other mri assistant errors may be contained in the documentation. Charges/Coding Procedures Integumentary 111xxx-113xx: 88820 Berna musc/fascia 20 sq cm/< 150xxx-152xx: 78804 Skin sub graft trnk/arm/leg Physical Exam Const alert and no apparent distress General Appearance: cooperative, comfortable, well kempt and frail HEENT Head and Scalp: normocephalic and atraumatic Neck supple Resp normal respiratory effort and normal air movement GI non-distended Extremity normal capillary refill, no joint enlargement and no calf tenderness General Extremity: edema right lower extremity mild; Negative for clubbing or cyanosis Peripheral Pulses: Yes dorsalis pedis pulses present right 2+ Skin Wounds: wounds noted No malodorous Wound Narrative: 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 Tunneling is deeper this week. Ulcer opening is smaller in size this week. Ulcer does not probe to bone. No purulent/malodorous drainage. Right lateral leg ulcer is significantly improved in size and appearance. Good granulation tissue present. No periulcer warmth or edema. Tender to palpation. Right ankle ulcer is improved in size today. Good granulation tissue is present. No periulcer warmth or erythema present. Right foot ulcer remains healed. Neuro Sensorium / Orientation: awake and alert Psych mental status grossly normal, cooperative and affect normal Appearance: grossly normal Debridement Note Debridement Note Post-Debridement Measurements and Additional Note: Post-Debridement Measurements/Treatment - Nurse 1 - General Ulcer Assessment Start: 06/23/20 10:17 Freq: Status: Active Protocol: DELVIS.FRANCISCA Activity Type Activity Date Activity User E-Sign Co-Sign Detail Recorded Client Recorded Date Recorded By Document 06/23/20 10:17 HARDIK [id number] 06/23/20 10:27 KR Document 06/30/20 10:11 HARDIK [id number] 06/30/20 10:22 KR 06/23/20 06/30/20 10:17 10:11 - Today's Visit Information Type of service Follow-up Visit Follow-up Visit (Physician/[employer]IPLE [employer] (Physician/TRIPLE [employer]VE TESTER ) ) Arrival Mode Ambulatory Wheelchair Patient Identification Verified (Name & Yes Yes ) Height and Weight Body Mass Index (BMI) 22.6 22.6 BMI Classification Normal Normal Vital Signs Temperature (97.8 F-99.1 F) 97.2 F L 97.2 F L Temperature Source Temporal Temporal Pulse Rate (60-100) 82 81 Pulse Location Monitor Monitor Respiratory Rate (12-18) 18 Respiratory rate source Observation Blood Pressure (90/60-120/80) 132/60 H 129/78 H Blood Pressure Mean (mm Hg) 84 95 Source Monitor Monitor Position Semi-Fowlers Blood Pressure Location Left Arm History Since Last Visit- (Skip if this is Patient's initial visit) Have you changed medications since your No No last visit? Any new allergies or adverse reactions No No Had a fall/change in ADL's that may No No increase risk of falls Signs or symptoms of abuse and/or No neglect since last visit Have you been in the hospital since your No No last visit? Has dressing in place as prescribed Yes Yes Has compression in place as prescribed Yes N/A Has offloadiing in place as prescribed N/A Yes Experienced any changes in pain level or No management Left Footwear Regular Shoe Right Footwear Regular Shoe Pain Scale: 0-10 Numeric Is Patient Pain Free? Yes Yes WC - Nurse 1 - General Ulcer Measurement Start: 06/23/20 10:17 Freq: Status: Active Protocol: Activity Type Activity Date Activity User E-Sign Co-Sign Detail Recorded Client Recorded Date Recorded By Document 06/23/20 10:17 KR [id number] 06/23/20 10:27 KR Document 06/30/20 10:11 KR [id number] 06/30/20 10:22 KR 06/23/20 06/30/20 10:17 10:11 Wound Center Nurse 1 #4 Right Lat Foot -Current Size (cm) - Length 0.1 -Current Size (cm) - Width 0.1 -Current Size (cm) - Depth 0.1 -Total Square Cm 0.01 -Exudate Amt None Present -Wound Margin Distinct, Outline Attached -Granulation Amt Small (1-33%) -Granulation Quality Hyper- granulation -Necrosis Amt None Present (0 %) -Texture (Cammie-wound Skin Appearance) Assessed, Scarring -Moisture (Cammie-wound Skin Appearance) No Abnormality, Assessed -Color (Cammie-wound Skin Appearance) Assessed -Temperature (Cammie-wound Skin No Abnormality Appearance) (Pt Warm) -Tenderness on Palpation (Cammie-wound No Skin Appearance) -Ulcer Cleansing soap and water -Anesthetic Used 4% Lidocaine Solution #3 R Lat LE -Current Size (cm) - Length 0.1 0.1 -Current Size (cm) - Width 0.1 0.1 -Current Size (cm) - Depth 0.1 0.1 -Total Square Cm 0.01 0.01 -Photo Taken No -Exudate Amt Small None Present -Exudate Type Serosanguineous -Wound Margin Distinct, Flat & Intact Outline Attached -Granulation Amt Medium (34-66%) Small (1-33%) -Granulation Quality Hyper- Ai granulation -Necrosis Amt None Present (0 Small (1-33%) %) -Necrotic Tissue Type Adherent Slough Adherent Slough -Structure Exposed N/A -Texture (Cammie-wound Skin Appearance) Assessed, Scarring Scarring -Moisture (Cammie-wound Skin Appearance) No Abnormality, No Abnormality Assessed -Color (Cammie-wound Skin Appearance) No Abnormality, No Abnormality Assessed -Temperature (Cammie-wound Skin No Abnormality No Abnormality Appearance) (Pt Warm) (Pt Warm) -Tenderness on Palpation (Cammie-wound No No Skin Appearance) -Ulcer Cleansing soap and water Wound Cleanser -Foul Odor after Cleansing No -Anesthetic Used 4% Lidocaine 4% Lidocaine Solution Solution #2 R Hip -Current Size (cm) - Length 1.3 1.1 -Current Size (cm) - Width 0.6 1.1 -Current Size (cm) - Depth 3.1 0.7 -Total Square Cm 0.78 1.21 -Photo Taken No -Tunneling Position (O'clock) 3 -Tunneling Distance (cm) 2.1 -Exudate Amt Medium Small -Exudate Type Serosanguineous Serosanguineous -Wound Margin Distinct, Distinct, Outline Outline Attached Attached -Granulation Amt Medium (34-66%) Medium (34-66%) -Granulation Quality Red Ai -Necrosis Amt Medium (34-66%) Medium (34-66%) -Necrotic Tissue Type Adherent Slough Adherent Slough -Structure Exposed N/A -Texture (Cammie-wound Skin Appearance) Assessed, Scarring Scarring -Moisture (Cammie-wound Skin Appearance) No Abnormality, No Abnormality, Assessed Dry/Scaly -Color (Cammie-wound Skin Appearance) No Abnormality, No Abnormality Assessed -Temperature (Cammie-wound Skin No Abnormality No Abnormality Appearance) (Pt Warm) (Pt Warm) -Tenderness on Palpation (Cammie-wound No No Skin Appearance) -Ulcer Cleansing soap and water Wound Cleanser -Foul Odor after Cleansing No -Anesthetic Used 4% Lidocaine 4% Lidocaine Solution Solution #1 R ankle -Current Size (cm) - Length 0.1 1.3 -Current Size (cm) - Width 0.1 1 -Current Size (cm) - Depth 0.1 0.2 -Total Square Cm 0.01 1.3 -Photo Taken No -Exudate Amt None Present Small -Exudate Type Serosanguineous -Wound Margin Distinct, Distinct, Outline Outline Attached Attached -Granulation Amt None Present (0 Small (1-33%) %) -Granulation Quality Ai -Necrosis Amt None Present (0 Small (1-33%) %) -Necrotic Tissue Type Adherent Slough -Structure Exposed N/A -Texture (Cammie-wound Skin Appearance) Assessed, Scarring Scarring -Moisture (Cammie-wound Skin Appearance) No Abnormality, No Abnormality Assessed -Color (Cammie-wound Skin Appearance) No Abnormality, No Abnormality Assessed -Temperature (Cammie-wound Skin No Abnormality No Abnormality Appearance) (Pt Warm) (Pt Warm) -Tenderness on Palpation (Cammie-wound No No Skin Appearance) -Ulcer Cleansing soap and water Wound Cleanser -Foul Odor after Cleansing No No -Anesthetic Used 4% Lidocaine 4% Lidocaine Solution Solution Right Calf (cm) 27.3 Right Ankle (cm) 19.7 WC - Nurse 2 - General Ulcer CM Notes Start: 06/23/20 10:17 Freq: Status: Active Protocol: Activity Type Activity Date Activity User E-Sign Co-Sign Detail Recorded Client Recorded Date Recorded By Document 06/23/20 14:31 PL [id number] 06/23/20 14:36 PL Document 06/30/20 10:43 [id number] 06/30/20 11:07 06/23/20 06/30/20 14:31 10:43 Wound Center Nurse 2 #3 R Lat LE -Time 10:35 10:56 -Correct Patient Yes Yes -Correct Side, Site, Position Yes Yes -Correct Procedure Yes Yes -Procedure Performed Yes Yes -Type of Procedure Debridement Debridement -Clinical Debridement Subcutaneous Subcutaneous -Tissue Removed Subcutaneous Subcutaneous -Post Debridement (cm) - Length 0.5 0.4 -Post Debridement (cm) - Width 0.5 0.5 -Post Debridement (cm) - Depth 0.1 0.1 -Total Square (Post) (cm) 0.25 0.20 -Area of Debridement (cm) - Length 0.5 0.4 -Area of Debridement (cm) - Width 0.5 0.5 -Total Square (Area) (cm) 0.25 0.20 -Tunneling No No -Undermining/Tunneling No No -Circular Undermining No No -Wound/Ulcer Outcome Not Healed Not Healed -Ulcer Cleansing Rinsed/ Rinsed/ Irrigated with Irrigated with Saline Saline -Foul Odor after Cleansing No No -Bioengineered Tissue Yes Yes -Type of Bioengineered Tissue Epifix Epifix -Expiration Date 02/17/25 03/20/25 -Product Lot Number [id number] -Percent Used 100 100 -Lot number of Saline Used [id number] -Bleeding Controlled with Pressure NA -Offloading No -Treatment Response Procedure Procedure Tolerated Well Tolerated Well -Debridement - Subq, 1st 20sq cm No No -Apply Skin Sub - 1st 25 sq cm - Legs 1 1 -Epifix (per sq cm) 4 4 #2 R Hip -Time 10:35 10:57 -Correct Patient Yes Yes -Correct Side, Site, Position Yes Yes -Correct Procedure Yes Yes -Procedure Performed Yes Yes -Type of Procedure Debridement Debridement -Clinical Debridement Muscle / Fascia Muscle / Fascia -Tissue Removed Epidermis, Muscle,Fascia Dermis, Subcutaneous, Muscle -Post Debridement (cm) - Length 1.7 1.5 -Post Debridement (cm) - Width 1.5 1.5 -Post Debridement (cm) - Depth 2.2 2.1 -Total Square (Post) (cm) 2.55 2.25 -Area of Debridement (cm) - Length 1.7 1.5 -Area of Debridement (cm) - Width 1.5 1.5 -Total Square (Area) (cm) 2.55 2.25 -Tunneling No Yes -Tunneling Position (O'clock) 2 -Tunneling Distance (cm) 5 -Undermining/Tunneling No No -Circular Undermining No No -Wound/Ulcer Outcome Not Healed Not Healed -Ulcer Cleansing Rinsed/ Rinsed/ Irrigated with Irrigated with Saline Saline -Foul Odor after Cleansing No No -Bioengineered Tissue No No -Bleeding Controlled with Pressure Pressure -Offloading No -Treatment Response Procedure Procedure Tolerated Well Tolerated Well -Debridement - Muscle / Fascia, 1st Yes Yes 20sq cm #1 R ankle -Time 10:35 10:59 -Correct Patient Yes Yes -Correct Side, Site, Position Yes Yes -Correct Procedure Yes Yes -Procedure Performed Yes Yes -Type of Procedure Debridement Debridement -Clinical Debridement Subcutaneous Subcutaneous -Tissue Removed Subcutaneous Subcutaneous -Post Debridement (cm) - Length 1.2 1.1 -Post Debridement (cm) - Width 0.9 0.8 -Post Debridement (cm) - Depth 0.3 0.2 -Total Square (Post) (cm) 1.08 0.88 -Area of Debridement (cm) - Length 1.2 1.1 -Area of Debridement (cm) - Width 0.9 0.8 -Total Square (Area) (cm) 1.08 0.88 -Tunneling No No -Undermining/Tunneling No No -Circular Undermining No No -Wound/Ulcer Outcome Not Healed Not Healed -Ulcer Cleansing Rinsed/ Rinsed/ Irrigated with Irrigated with Saline Saline -Foul Odor after Cleansing No No -Bioengineered Tissue No No -Bleeding Controlled with Pressure -Offloading No -Treatment Response Procedure Tolerated Well -Debridement - Subq, 1st 20sq cm No Yes Pain Scale: 0-10 Numeric Is Patient Pain Free? Yes Yes - Nurse 3 - General Ulcer D/C NN Start: 06/23/20 10:17 Freq: Status: Active Protocol: Activity Type Activity Date Activity User E-Sign Co-Sign Detail Recorded Client Recorded Date Recorded By Document 06/23/20 12:41 VIELKA [id number] 06/23/20 12:44 VIELKA Edit Result 06/23/20 12:41 JF (1) [id number] 06/25/20 09:08 PL (1) Right - Multi-Layered Wrap Application => Unna Boot - Right => ($) 06/23/20 12:41 Wound Care Nurse 3 #4 Right Lat Foot -Ulcer Cleansing Rinsed/ Irrigated with Saline -Foul Odor after Cleansing No -Primary Dressing Covered/Secured with Dry Gauze & Roll Gauze, Secured with Tape #3 R Lat LE -Ulcer Cleansing Rinsed/ Irrigated with Saline -Foul Odor after Cleansing No -Primary Dressing Covered/Secured with Dry Gauze & Roll Gauze, Secured with Tape #2 R Hip -Ulcer Cleansing Rinsed/ Irrigated with Saline -Foul Odor after Cleansing No -Primary Dressing Applied Aquacel AG 2x2 -Primary Dressing Covered/Secured with Dry Gauze, Secured with Tape -Clear Standards AG 2x2 2 #1 R ankle -Ulcer Cleansing Rinsed/ Irrigated with Saline -Foul Odor after Cleansing No -Primary Dressing Covered/Secured with Dry Gauze, Secured with Tape Right -Multi-Layered Wrap Application Unna Boot - Right ($) -Compression Wrap Unna Boot ($) ( single) Pain Scale: 0-10 Numeric Is Patient Pain Free? Yes WC - Visit Discharge Discharge Condition Stable Ambulatory Status Wheelchair Transportation Private Auto Accompanied by caregiver Medication Reconcilliation completed & Yes provided to patient/care provider Clinical Summary of Care Provided Yes Wound debrided: Right ankle ulcer Laterality: Right Wound Grade/Stage: Mendez 1 Type of Debridement: Excisional debridement Anesthesia Used: 5% Lidocaine Gel Depth: in the subcutaneous layer Percentage of wound debrided: 100 Instrument Used: 5mm curette Tissue Removed: Slough and devitalized tissue Severity: Fat Layer Exposed Amount of bleeding with debridement: Mild Bleeding Controlled with: Pressure Patient tolerated procedure: Patient tolerated procedure well Additional Wound Wound debrided: Right lateral leg ulcer Laterality: Right Wound Grade/Stage: Stage II Type of Debridement: Excisional debridement Anesthesia Used: 5% Lidocaine Gel Depth: in the subcutaneous layer Percentage of wound debrided: 100 Instrument Used: 5mm curette Tissue Removed: Slough and devitalized tissue Severity: Fat Layer Exposed Amount of bleeding with debridement: Mild Bleeding Controlled with: Pressure Patient tolerated procedure: Patient tolerated procedure well Additional Wound Wound debrided: Right hip ulcer Laterality: Right Wound Grade/Stage: Stage IV Type of Debridement: Excisional debridement Anesthesia Used: 5% Lidocaine Gel and Cetacaine Depth: in the subcutaneous layer and to muscle Percentage of wound debrided: 100 Instrument Used: 5mm curette Tissue Removed: Slough and devitalized tissue Severity: Fat Layer Exposed Amount of bleeding with debridement: Mild Bleeding Controlled with: Pressure Patient tolerated procedure: Patient tolerated procedure well
[2020-07-07 10:15] VITALS: BP 122/49; PULSE 80; RESP 16; TEMP 36.8; BMI 22.6
--- NOTE | 2020-07-07 13:21 | PN.PCM_ITS ---
History of Present Illness Date of Service: 07/07/20 Chief Complaint: Ulcers of right foot, right ankle, right lateral leg, and right hip History of Wound: The patient presents to the wound healing center today, 04/07/2020, for an initial evaluation of right lower extremity ulcers of the foot, ankle, lateral leg and hip. He has a past medical history significant for type 2 diabetes mellitus, hypertension, hyperlipidemia, anemia, tobacco use and alcoholism. He states he has been sober for about 4 months. He no longer takes Metformin, and states this was discontinued due to causing renal insufficiency. He states his diabetes is currently managed with diet and exercise, though he has been not unable to exercise in recent months. He states that in December he suffered a fall and laid on the ground for 5 days, during which time he developed these ulcers. He reports subsequent impaired movement and sensation of his right lower extremity from the mid lower leg to his toes. He was admitted to a group home following hospitalization, and was receiving wound debridement approximately every 2 weeks. Santyl was used on the ulcers of his right lower leg, ankle and foot. A wound VAC was used for his right hip ulcer. He was discharged from the group home on 04/03/2020, at which time the wound VAC was discontinued. Since 04/03/2020, the patient has been using wet to dry gauze dressings to the right hip daily. He is receiving home health care from [place] [facility]. He reports he is able to ambulate with the use of a walker, and also uses a wheelchair at times. He denies any fever or chills. He states there was a concern for infection in his right lateral leg ulcer, and he was started on doxycycline, which he is currently taking. He reports occasional nausea, but denies vomiting or diarrhea. He also reports a decreased appetite. He denies any recent copious, purulent, or foul-smelling drainage from his ulcers. Progress of Wound: Rosendo returns today for a follow-up visit. We have been using Aquacel Ag packing to the right hip ulcer. The wound opening continues to close more quickly than his tunnel is filling in. We have discussed referral to plastic surgeon for unroofing of right hip ulcer due to tunneling, however the patient reports numerous scheduling conflicts and the consult has not yet been scheduled. His right leg ulcer is nearly healed today. He has been tolerating Epifix well. His right ankle ulcer is improved in appearance this week. No signs of infection present. His right foot ulcer remains healed. His most recent culture collected from the right hip on 06/16/2020 demonstrated 1+ Streptococcus agalactiae (B). 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 He presented to [facility] emergency department, where he received a dose of IV Unasyn and was discharged on cefdinir. He has finished his course of cefdinir. Labs were done while he was at the hospital on 06/19/2020. Blood cultures were negative. His CBC demonstrated anemia. His potassium level was elevated, but the lab report notes moderate hemolysis which may falsely increase this level. His lactic acid level was normal. A CMP was otherwise unremarkable. His pelvis and right hip x-ray (06/23/2020) revealed no bone resorption to suggest osteomyelitis. The patient denies fever, chills, nausea, vomiting, or diarrhea. He feels his appetite and energy level have improved this week. Objective Data Objective Data Vital Signs: Vital Signs Temp Pulse Resp BP 98.3 F 80 16 122/49 H 07/07/20 10:15 07/07/20 10:15 07/07/20 10:15 07/07/20 10:15 Oxygen Delivery Method Room Air Body Mass Index (BMI) 22.6 Charges/Coding Procedures Integumentary 111xxx-113xx: 76257 Berna musc/fascia 20 sq cm/< 150xxx-152xx: 86739 Skin sub graft trnk/arm/leg Physical Exam Const alert and no apparent distress General Appearance: cooperative, comfortable, well kempt and frail HEENT Head and Scalp: normocephalic and atraumatic Neck supple Resp normal respiratory effort and normal air movement GI non-distended Extremity normal capillary refill, no joint enlargement and no calf tenderness General Extremity: edema right lower extremity mild; Negative for clubbing or cyanosis Peripheral Pulses: Yes dorsalis pedis pulses present right 2+ Skin Wounds: wounds noted No malodorous Wound Narrative: 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 Tunneling is improved this week. Ulcer opening is smaller in size this week. Ulcer does not probe to bone. No purulent/malodorous drainage. Right lateral leg ulcer is significantly improved in size and appearance and is nearly resolved. Good granulation tissue present. No periulcer warmth or edema. Tender to palpation. Right ankle ulcer is improved in size today. Good granulation tissue is present. No periulcer warmth or erythema present. Right foot ulcer remains healed. Neuro Sensorium / Orientation: awake and alert Psych mental status grossly normal, cooperative and affect normal Appearance: grossly normal Debridement Note Debridement Note Post-Debridement Measurements and Additional Note: Post-Debridement Measurements/Treatment - Nurse 1 - General Ulcer Assessment Start: 06/23/20 10:17 Freq: Status: Active Protocol: NADIA Activity Type Activity Date Activity User E-Sign Co-Sign Detail Recorded Client Recorded Date Recorded By Document 06/23/20 10:17 HARDIK [id number] 06/23/20 10:27 KR Document 06/30/20 10:11 KR [id number] 06/30/20 10:22 KR Document 07/07/20 10:15 [facility] Desktop 07/07/20 10:30 [facility] 06/23/20 06/30/20 07/07/20 10:17 10:11 10:15 - Today's Visit Information Type of service Follow-up Visit Follow-up Visit Follow-up Visit (Physician/PAPER SLITTER (Physician/PAPER SLITTER (Physician/PAPER SLITTER ) ) ) Arrival Mode Ambulatory Wheelchair Wheelchair Transfer Assistance None Transfer Assist (Other) stand by Accompanied by grandson Patient Identification Verified (Name & Yes Yes Yes ) Patient Requires Transmission-Based No Precautions Height and Weight Body Mass Index (BMI) 22.6 22.6 22.6 BMI Classification Normal Normal Normal Vital Signs Temperature (97.8 F-99.1 F) 97.2 F L 97.2 F L 98.3 F Temperature Source Temporal Temporal Temporal Pulse Rate (60-100) 82 81 80 Pulse Location Monitor Monitor Monitor Respiratory Rate (12-18) 18 16 Respiratory rate source Observation Observation Oxygen Delivery Method Room Air Blood Pressure (90/60-120/80) 132/60 H 129/78 H 122/49 H Blood Pressure Mean (mm Hg) 84 95 73 Source Monitor Monitor Monitor Position Semi-Fowlers Sitting Blood Pressure Location Left Arm Left Arm History Since Last Visit- (Skip if this is Patient's initial visit) Have you changed medications since your No No No last visit? Any new allergies or adverse reactions No No No Had a fall/change in ADL's that may No No No increase risk of falls Signs or symptoms of abuse and/or No No neglect since last visit Have you been in the hospital since your No No No last visit? Has dressing in place as prescribed Yes Yes Yes Has compression in place as prescribed Yes N/A Has offloadiing in place as prescribed N/A Yes Experienced any changes in pain level or No management Left Footwear Regular Shoe Right Footwear Regular Shoe Pain Scale: 0-10 Numeric Is Patient Pain Free? Yes Yes WC - Nurse 1 - General Ulcer Measurement Start: 06/23/20 10:17 Freq: Status: Active Protocol: Activity Type Activity Date Activity User E-Sign Co-Sign Detail Recorded Client Recorded Date Recorded By Document 06/23/20 10:17 HARDIK [id number] 06/23/20 10:27 KR Document 06/30/20 10:11 KR [id number] 06/30/20 10:22 KR Document 07/07/20 10:15 [facility] Desktop 07/07/20 10:30 [facility] 06/23/20 06/30/20 07/07/20 10:17 10:11 10:15 Wound Center Nurse 1 #4 Right Lat Foot -Current Size (cm) - Length 0.1 -Current Size (cm) - Width 0.1 -Current Size (cm) - Depth 0.1 -Total Square Cm 0.01 -Exudate Amt None Present -Wound Margin Distinct, Outline Attached -Granulation Amt Small (1-33%) -Granulation Quality Hyper- granulation -Necrosis Amt None Present (0 %) -Texture (Cammie-wound Skin Appearance) Assessed, Scarring -Moisture (Cammie-wound Skin Appearance) No Abnormality, Assessed -Color (Cammie-wound Skin Appearance) Assessed -Temperature (Cammie-wound Skin No Abnormality Appearance) (Pt Warm) -Tenderness on Palpation (Cammie-wound No Skin Appearance) -Ulcer Cleansing soap and water -Anesthetic Used 4% Lidocaine Solution #3 R Lat LE -Combined with other wound No -Current Size (cm) - Length 0.1 0.1 0.1 -Current Size (cm) - Width 0.1 0.1 0.1 -Current Size (cm) - Depth 0.1 0.1 0.1 -Total Square Cm 0.01 0.01 0.01 -Photo Taken No No -Epithelialization Large 67-100% -Exudate Amt Small None Present -Exudate Type Serosanguineous -Wound Margin Distinct, Flat & Intact Outline Attached -Granulation Amt Medium (34-66%) Small (1-33%) -Granulation Quality Hyper- [place] granulation -Slough/Fibrin Yes -Necrosis Amt None Present (0 Small (1-33%) Small (1-33%) %) -Necrotic Tissue Type Adherent Slough Adherent Slough Eschar -Structure Exposed N/A -Texture (Cammie-wound Skin Appearance) Assessed, Scarring Assessed, Scarring Scarring -Moisture (Cammie-wound Skin Appearance) No Abnormality, No Abnormality Assessed Assessed -Color (Cammie-wound Skin Appearance) No Abnormality, No Abnormality Assessed Assessed -Temperature (Cammie-wound Skin No Abnormality No Abnormality No Abnormality Appearance) (Pt Warm) (Pt Warm) (Pt Warm) -Tenderness on Palpation (Cammie-wound No No No Skin Appearance) -Ulcer Cleansing soap and water Wound Cleanser soapy water -Foul Odor after Cleansing No No -Anesthetic Used 4% Lidocaine 4% Lidocaine 4% Lidocaine Solution Solution Solution #2 R Hip -Combined with other wound No -Current Size (cm) - Length 1.3 1.1 1.1 -Current Size (cm) - Width 0.6 1.1 0.9 -Current Size (cm) - Depth 3.1 0.7 1 -Total Square Cm 0.78 1.21 0.99 -Photo Taken No No -Epithelialization Small 1-33% -Tunneling Yes -Tunneling Position (O'clock) 3 2 -Tunneling Distance (cm) 2.1 2.5 -Undermining/Tunneling No -Circular Undermining No -Exudate Amt Medium Small Large -Exudate Type Serosanguineous Serosanguineous Serosanguineous -Wound Margin Distinct, Distinct, Distinct, Outline Outline Outline Attached Attached Attached -Granulation Amt Medium (34-66%) Medium (34-66%) Large (67-100%) -Granulation Quality Red [place] Red -Slough/Fibrin Yes -Necrosis Amt Medium (34-66%) Medium (34-66%) Small (1-33%) -Necrotic Tissue Type Adherent Slough Adherent Slough Adherent Slough -Structure Exposed N/A -Texture (Cammie-wound Skin Appearance) Assessed, Scarring Assessed, Scarring Scarring -Moisture (Cammie-wound Skin Appearance) No Abnormality, No Abnormality, Assessed Assessed Dry/Scaly -Color (Cammie-wound Skin Appearance) No Abnormality, No Abnormality Assessed Assessed -Temperature (Cammie-wound Skin No Abnormality No Abnormality No Abnormality Appearance) (Pt Warm) (Pt Warm) (Pt Warm) -Tenderness on Palpation (Cammie-wound No No Yes Skin Appearance) -Ulcer Cleansing soap and water Wound Cleanser Rinsed/ Irrigated with Saline -Foul Odor after Cleansing No No -Anesthetic Used 4% Lidocaine 4% Lidocaine 5% Lidocaine Solution Solution Gel #1 R ankle -Combined with other wound No -Current Size (cm) - Length 0.1 1.3 0.7 -Current Size (cm) - Width 0.1 1 0.5 -Current Size (cm) - Depth 0.1 0.2 0.3 -Total Square Cm 0.01 1.3 0.35 -Photo Taken No No -Epithelialization Small 1-33% -Tunneling No -Undermining/Tunneling No -Circular Undermining No -Exudate Amt None Present Small Small -Exudate Type Serosanguineous Serosanguineous -Wound Margin Distinct, Distinct, Thickened Outline Outline Attached Attached -Granulation Amt None Present (0 Small (1-33%) Small (1-33%) %) -Granulation Quality [place] Red -Slough/Fibrin Yes -Necrosis Amt None Present (0 Small (1-33%) Large (67-100%) %) -Necrotic Tissue Type Adherent Slough Adherent Slough -Structure Exposed N/A -Texture (Cammie-wound Skin Appearance) Assessed, Scarring Assessed, Scarring Scarring -Moisture (Cammie-wound Skin Appearance) No Abnormality, No Abnormality Assessed Assessed -Color (Cammie-wound Skin Appearance) No Abnormality, No Abnormality Assessed -Temperature (Cammie-wound Skin No Abnormality No Abnormality No Abnormality Appearance) (Pt Warm) (Pt Warm) (Pt Warm) -Tenderness on Palpation (Cammie-wound No No Skin Appearance) -Ulcer Cleansing soap and water Wound Cleanser soapy water -Foul Odor after Cleansing No No No -Anesthetic Used 4% Lidocaine 4% Lidocaine 4% Lidocaine Solution Solution Solution Right Calf (cm) 27.3 Right Ankle (cm) 19.7 WC - Nurse 2 - General Ulcer CM Notes Start: 06/23/20 10:17 Freq: Status: Active Protocol: Activity Type Activity Date Activity User E-Sign Co-Sign Detail Recorded Client Recorded Date Recorded By Document 06/23/20 14:31 PL [id number] 06/23/20 14:36 PL Document 06/30/20 10:43 JF [id number] 06/30/20 11:07 JF 06/23/20 06/30/20 14:31 10:43 Wound Center Nurse 2 #3 R Lat LE -Time 10:35 10:56 -Correct Patient Yes Yes -Correct Side, Site, Position Yes Yes -Correct Procedure Yes Yes -Procedure Performed Yes Yes -Type of Procedure Debridement Debridement -Clinical Debridement Subcutaneous Subcutaneous -Tissue Removed Subcutaneous Subcutaneous -Post Debridement (cm) - Length 0.5 0.4 -Post Debridement (cm) - Width 0.5 0.5 -Post Debridement (cm) - Depth 0.1 0.1 -Total Square (Post) (cm) 0.25 0.20 -Area of Debridement (cm) - Length 0.5 0.4 -Area of Debridement (cm) - Width 0.5 0.5 -Total Square (Area) (cm) 0.25 0.20 -Tunneling No No -Undermining/Tunneling No No -Circular Undermining No No -Wound/Ulcer Outcome Not Healed Not Healed -Ulcer Cleansing Rinsed/ Rinsed/ Irrigated with Irrigated with Saline Saline -Foul Odor after Cleansing No No -Bioengineered Tissue Yes Yes -Type of Bioengineered Tissue Epifix Epifix -Expiration Date 02/17/25 03/20/25 -Product Lot Number [id number] -Percent Used 100 100 -Lot number of Saline Used [id number] -Bleeding Controlled with Pressure NA -Offloading No -Treatment Response Procedure Procedure Tolerated Well Tolerated Well -Debridement - Subq, 1st 20sq cm No No -Apply Skin Sub - 1st 25 sq cm - Legs 1 1 -Epifix (per sq cm) 4 4 #2 R Hip -Time 10:35 10:57 -Correct Patient Yes Yes -Correct Side, Site, Position Yes Yes -Correct Procedure Yes Yes -Procedure Performed Yes Yes -Type of Procedure Debridement Debridement -Clinical Debridement Muscle / Fascia Muscle / Fascia -Tissue Removed Epidermis, Muscle,Fascia Dermis, Subcutaneous, Muscle -Post Debridement (cm) - Length 1.7 1.5 -Post Debridement (cm) - Width 1.5 1.5 -Post Debridement (cm) - Depth 2.2 2.1 -Total Square (Post) (cm) 2.55 2.25 -Area of Debridement (cm) - Length 1.7 1.5 -Area of Debridement (cm) - Width 1.5 1.5 -Total Square (Area) (cm) 2.55 2.25 -Tunneling No Yes -Tunneling Position (O'clock) 2 -Tunneling Distance (cm) 5 -Undermining/Tunneling No No -Circular Undermining No No -Wound/Ulcer Outcome Not Healed Not Healed -Ulcer Cleansing Rinsed/ Rinsed/ Irrigated with Irrigated with Saline Saline -Foul Odor after Cleansing No No -Bioengineered Tissue No No -Bleeding Controlled with Pressure Pressure -Offloading No -Treatment Response Procedure Procedure Tolerated Well Tolerated Well -Debridement - Muscle / Fascia, 1st Yes Yes 20sq cm #1 R ankle -Time 10:35 10:59 -Correct Patient Yes Yes -Correct Side, Site, Position Yes Yes -Correct Procedure Yes Yes -Procedure Performed Yes Yes -Type of Procedure Debridement Debridement -Clinical Debridement Subcutaneous Subcutaneous -Tissue Removed Subcutaneous Subcutaneous -Post Debridement (cm) - Length 1.2 1.1 -Post Debridement (cm) - Width 0.9 0.8 -Post Debridement (cm) - Depth 0.3 0.2 -Total Square (Post) (cm) 1.08 0.88 -Area of Debridement (cm) - Length 1.2 1.1 -Area of Debridement (cm) - Width 0.9 0.8 -Total Square (Area) (cm) 1.08 0.88 -Tunneling No No -Undermining/Tunneling No No -Circular Undermining No No -Wound/Ulcer Outcome Not Healed Not Healed -Ulcer Cleansing Rinsed/ Rinsed/ Irrigated with Irrigated with Saline Saline -Foul Odor after Cleansing No No -Bioengineered Tissue No No -Bleeding Controlled with Pressure -Offloading No -Treatment Response Procedure Tolerated Well -Debridement - Subq, 1st 20sq cm No Yes Pain Scale: 0-10 Numeric Is Patient Pain Free? Yes Yes WC - Nurse 3 - General Ulcer D/C NN Start: 06/23/20 10:17 Freq: Status: Active Protocol: Activity Type Activity Date Activity User E-Sign Co-Sign Detail Recorded Client Recorded Date Recorded By Document 06/23/20 12:41 JF [id number] 06/23/20 12:44 JF Edit Result 06/23/20 12:41 JF (1) [id number] 06/25/20 09:08 PL Document 06/30/20 10:50 PL [id number] 07/03/20 06:57 PL Document 07/07/20 11:20 BMF Desktop 07/07/20 11:21 BMF (1) Right - Multi-Layered Wrap Application => Unna Boot - Right => ($) 06/23/20 06/30/20 07/07/20 12:41 10:50 11:20 Wound Care Nurse 3 #4 Right Lat Foot -Ulcer Cleansing Rinsed/ Irrigated with Saline -Foul Odor after Cleansing No -Primary Dressing Covered/Secured with Dry Gauze & Roll Gauze, Secured with Tape #3 R Lat LE -Ulcer Cleansing Rinsed/ Irrigated with Saline -Foul Odor after Cleansing No -Other Dressing epifix, unna boot -Primary Dressing Covered/Secured with Dry Gauze & Roll Gauze, Secured with Tape #2 R Hip -Ulcer Cleansing Rinsed/ Rinsed/ Irrigated with Irrigated with Saline Saline -Foul Odor after Cleansing No No -Primary Dressing Applied Aquacel AG 2x2 Aquacel Extra, Mepilex Border -Primary Dressing Covered/Secured with Dry Gauze, Secured with Tape -Aquacel Extra 1 -Aquacel AG 2x2 2 -Mepilex Border 1 #1 R ankle -Ulcer Cleansing Rinsed/ Irrigated with Saline -Foul Odor after Cleansing No -Other Dressing epifix, unna -Primary Dressing Covered/Secured with Dry Gauze, Secured with Tape Right -Multi-Layered Wrap Application Unna Boot - Unna Boot - Unna Boot - Right ($) Right ($) Right ($) -Compression Wrap Unna Boot ($) ( Unna Boot ($) ( single) single) Pain Scale: 0-10 Numeric Is Patient Pain Free? Yes Yes WC - Visit Discharge Discharge Condition Stable Stable Ambulatory Status Wheelchair Wheelchair Transportation Private Auto Private Auto Accompanied by caregiver gr son Medication Reconcilliation completed & Yes provided to patient/care provider Clinical Summary of Care Provided Yes Wound debrided: Right ankle ulcer Laterality: Right Wound Grade/Stage: Mendez 1 Type of Debridement: Excisional debridement Anesthesia Used: 4% Lidocaine Solution Depth: in the subcutaneous layer Percentage of wound debrided: 100 Instrument Used: 3mm curette Tissue Removed: Slough and devitalized tissue Severity: Fat Layer Exposed Amount of bleeding with debridement: Mild Bleeding Controlled with: Pressure Patient tolerated procedure: Patient tolerated procedure well Additional Wound Wound debrided: Right lateral leg ulcer Laterality: Right Wound Grade/Stage: Stage II Type of Debridement: Excisional debridement Anesthesia Used: 4% Lidocaine Solution Depth: in the subcutaneous layer Percentage of wound debrided: 100 Instrument Used: 3mm curette Tissue Removed: Slough and devitalized tissue Severity: Fat Layer Exposed Amount of bleeding with debridement: Mild Bleeding Controlled with: Pressure Patient tolerated procedure: Patient tolerated procedure well Additional Wound Wound debrided: Right hip ulcer Laterality: Right Wound Grade/Stage: Stage IV Type of Debridement: Excisional debridement Anesthesia Used: 4% Lidocaine Solution Depth: in the subcutaneous layer and to muscle Percentage of wound debrided: 100 Instrument Used: 5mm curette Tissue Removed: Slough and devitalized tissue Severity: Fat Layer Exposed Amount of bleeding with debridement: Mild Bleeding Controlled with: Pressure Patient tolerated procedure: Patient tolerated procedure well Assessment/Plan Assessment/Plan (1) Diabetic ulcer of right ankle: CODE(S): Code(s): E11.622 - Type 2 diabetes mellitus with other skin ulcer; L97.319 - Non-pressure chronic ulcer of right ankle with unspecified severity (2) Diabetic ulcer of right lower leg: CODE(S): Code(s): E11.622 - Type 2 diabetes mellitus with other skin ulcer; L97.919 - Non-pressure chronic ulcer of unspecified part of right lower leg with unspecified severity (3) Decubitus ulcer of right hip, stage 4: CODE(S): Code(s): L89.214 - Pressure ulcer of right hip, stage 4 (4) Diabetes mellitus type 2 in nonobese: CODE(S): Code(s): E11.9 - Type 2 diabetes mellitus without complications (5) Hypertension: CODE(S): Code(s): I10 - Essential (primary) hypertension QUALIFIERS: Hypertension type: essential hypertension Qualified Code(s): I10 - Essential (primary) hypertension (6) Hyperlipidemia: CODE(S): Code(s): E78.5 - Hyperlipidemia, unspecified QUALIFIERS: Hyperlipidemia type: unspecified Qualified Code(s): E78.5 - Hyperlipidemia, unspecified (7) Alcoholism: CODE(S): Code(s): F10.20 - Alcohol dependence, uncomplicated (8) Bipolar disorder: CODE(S): Code(s): F31.9 - Bipolar disorder, unspecified QUALIFIERS: Active/Remission status: remission status unspecified Qualified Code(s): F31.9 - Bipolar disorder, unspecified PLAN: Debridement performed today in clinic. Right hip wound packed with Aquacel. Given the duration of the wound and failure of the wound to respond to standard wound care, we applied for advanced skin substitutes and were approved for Epifix. Epifix #8 applied to the right lateral leg ulcer, 100% of the product was used. Epifix was covered with Adaptic touch and secured with Steri-Strips. Right ankle ulcer covered with Aquacel Ag. Unna boot applied to right lower extremity. (3M wrap was previously not well tolerated.) At home wound-care instructions: The patient is to keep Unna boot clean and dry. If he notices numbness/tingling of the toes or discoloration of the toes, he is to contact the wound healing center or report to the emergency department. The patient's home health care nurse comes out on Mondays and Wednesdays. His right hip ulcer was packed today with Aquacel. Leave packing in place until Friday. On Friday and Friday, the nurse will pack the right hip wound and tunnel with Aquacel Ag. Off-loading: Avoid pressure at ulcer sites. Avoid prolonged standing or d angling of the legs. When seated, keep feet elevated at chest level. If Unna boots begin to feel tight, elevate the feet. A Roho cushion was ordered for the patient to use when utilizing his wheelchair. He was instructed on appropriate offloading when seated/lying down. Frequent position changes were encouraged. Diet: Patient encouraged to increase protein and vitamin C intake while taking caution to avoid high carbohydrate and/or sugar intake. Labs/cultures/imaging: He completed a course of doxycycline on 04/11/2020. Patient's right hip culture from 04/07/2020 was positive for 1+ MRSA (susceptible to Bactrim), and he was started on Bactrim by his PCP on 04/11/20. Patient's right lower leg culture from 04/14/2020 was positive for rare MRSA (susceptible to Bactrim). Bactrim was continued. He later developed right lower extremity erythema, warmth, and swelling which spread to the left lower extremity as well. Bactrim was discontinued and he was started on Clindamycin 450mg PO TID x 10 days. (Cultures showed susceptibility to clindamycin, and negative for inducible clindamycin resistance.) With initiation of clindamycin, the patient and his caregiver reported significant improvement in the erythema and edema of his bilateral lower extremities. Clindamycin was continued for another 7 days. Due to clinical signs of infection, new cultures were collected from the right hip on 04/28/2020, which were positive for 3+ Stenotrophomonas maltophilia and 1+ corynebacterium striatum. Susceptibility studies showed susceptibility of Stenotrophomonas maltophilia to levofloxacin and Bactrim. Anaerobic studies were negative. The patient was started on levofloxacin 750 mg once daily for 7 days. Per his primary care provider, this was not well-tolerated (caused weakness and confusion) and his primary care provider discontinued levofloxacin and started him on Bactrim; side effects resolved with antibiotic change. He completed his course of Bactrim. He was started on doxycycline by his PCP on approximately 05/30/2019 for a UTI. He has been off of antibiotics for approximately 1 week now. Cultures again collected from the right hip on 06/16/2020 demonstrated 1+ S treptococcus agalactiae (B). 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 He presented to [facility] emergency department, where he received a dose of IV Unasyn and was discharged on cefdinir. He has completed his course of cefdinir. Labs were done while he was at the hospital on 06/19/2020. Blood cultures were negative. His CBC demonstrated anemia. His potassium level was elevated, but the lab report notes moderate hemolysis which may falsely increase this level. His lactic acid level was normal. A CMP was otherwise unremarkable. His right hip x-ray from 06/23/2020 revealed no bone reabsorption to suggest osteomyelitis. We will continue to attempt to schedule a consult with a plastic surgeon regarding right hip ulcer with deep tunneling which may require unroofing/surgical debridement. The patient has been very reluctant to schedule and has voiced several scheduling concerns/conflicts. Follow-up: Return to clinic in 1 week for re-evaluation. Return sooner or report to the emergency room should symptoms worsen, or new symptoms arise. We have discussed in great detail the clinical signs of infection or worsening overall condition and emphasized the importance of seeking emergency medical care should these occur. Note: [employer] speech recognition power distribution engineer software was used to create portions of this document. Sound-alike and misspelled words, as well as other power distribution engineer errors may be contained in the documentation.
[2020-07-14 10:49] VITALS: BP 99/54; PULSE 72; RESP 18; TEMP 36.4; BMI 22.6
--- NOTE | 2020-07-14 13:46 | PCM.WC.PN ---
History of Present Illness Date of Service: 07/14/20 Chief Complaint: Ulcers of right foot, right ankle, right lateral leg, and right hip History of Wound: The patient presents to the wound healing center today, 04/07/2020, for an initial evaluation of right lower extremity ulcers of the foot, ankle, lateral leg and hip. He has a past medical history significant for type 2 diabetes mellitus, hypertension, hyperlipidemia, anemia, tobacco use and alcoholism. He states he has been sober for about 4 months. He no longer takes Metformin, and states this was discontinued due to causing renal insufficiency. He states his diabetes is currently managed with diet and exercise, though he has been not unable to exercise in recent months. He states that in December he suffered a fall and laid on the ground for 5 days, during which time he developed these ulcers. He reports subsequent impaired movement and sensation of his right lower extremity from the mid lower leg to his toes. He was admitted to a [place] [facility] following hospitalization, and was receiving wound debridement approximately every 2 weeks. Santyl was used on the ulcers of his right lower leg, ankle and foot. A wound VAC was used for his right hip ulcer. He was [place] from the [place] [facility] on 04/03/2020, at which time the wound VAC was discontinued. Since 04/03/2020, the patient has been using wet to dry gauze dressings to the right hip daily. He is receiving home health care from [facility]. He reports he is able to ambulate with the use of a walker, and also uses a wheelchair at times. He denies any fever or chills. He states there was a concern for infection in his right lateral leg ulcer, and he was started on doxycycline, which he is currently taking. He reports occasional nausea, but denies vomiting or diarrhea. He also reports a decreased appetite. He denies any recent copious, purulent, or foul-smelling drainage from his ulcers. Progress of Wound: Rosendo returns today for a follow-up visit. He is seen as a courtesy visit for Mary Méndez CNP. We have been using Aquacel Ag packing to the right hip ulcer. The wound opening continues to close more quickly than his tunnel is filling in. We have discussed referral to plastic surgeon for unroofing of right hip ulcer due to tunneling, however the patient reports numerous scheduling conflicts and the consult has not yet been scheduled. His right leg ulcer is healed today. His right ankle ulcer is improved in appearance this week. No signs of infection present. His right foot ulcer remains healed. His most recent culture collected from the right hip on 06/16/2020 demonstrated 1+ Streptococcus agalactiae (B). 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 He presented to [facility] emergency department, where he received a dose of IV Unasyn and was discharged on cefdinir. He has finished his course of cefdinir. Labs were done while he was at the hospital on 06/19/2020. Blood cultures were negative. His CBC demonstrated anemia. His potassium level was elevated, but the lab report notes moderate hemolysis which may falsely increase this level. His lactic acid level was normal. A CMP was otherwise unremarkable. His pelvis and right hip x-ray (06/23/2020) revealed no bone resorption to suggest osteomyelitis. The patient denies fever, chills, nausea, vomiting, or diarrhea. He feels his appetite and energy level have improved this week. Objective Data Objective Data Vital Signs: Vital Signs Temp Pulse Resp BP 97.5 F L 72 18 99/54 L 07/14/20 10:49 07/14/20 10:49 07/14/20 10:49 07/14/20 10:49 Oxygen Delivery Method Room Air Body Mass Index (BMI) 22.6 Physical Exam Const alert, oriented x3 and no apparent distress Nutritional Appearance: underweight HEENT normocephalic and head/scalp atraumatic Resp normal respiratory effort and normal air movement Cardio regular rate and regular rhythm Extremity General Extremity: atrophy Skin Wounds: wounds noted Wound Narrative: as in clinical data Psych mental status grossly normal and affect normal Debridement Note Debridement Note Post-Debridement Measurements and Additional Note: Post-Debridement Measurements/Treatment WC - Nurse 1 - General Ulcer Assessment Start: 06/23/20 10:17 Freq: Status: Active Protocol: DELVIS.FRANCISCA Activity Type Activity Date Activity User E-Sign Co-Sign Detail Recorded Client Recorded Date Recorded By Document 06/23/20 10:17 HARDIK [id number] 06/23/20 10:27 KR Document 06/30/20 10:11 KR [id number] 06/30/20 10:22 KR Document 07/07/20 10:15 BMF Desktop 07/07/20 10:30 BMF Document 07/14/20 10:49 RB Desktop 07/14/20 10:56 RB 06/23/20 06/30/20 07/07/20 10:17 10:11 10:15 WC - Today's Visit Information Type of service Follow-up Visit Follow-up Visit Follow-up Visit (Physician/MATERIAL STOCKKEEPER YARD (Physician/MATERIAL STOCKKEEPER YARD (Physician/MATERIAL STOCKKEEPER YARD ) ) ) Arrival Mode Ambulatory Wheelchair Wheelchair Transfer Assistance None Transfer Assist (Other) stand by Accompanied by grandson Patient Identification Verified (Name & Yes Yes Yes ) Patient Requires Transmission-Based No Precautions Height and Weight Body Mass Index (BMI) 22.6 22.6 22.6 BMI Classification Normal Normal Normal Vital Signs Temperature (97.8 F-99.1 F) 97.2 F L 97.2 F L 98.3 F Temperature Source Temporal Temporal Temporal Pulse Rate (60-100) 82 81 80 Pulse Location Monitor Monitor Monitor Respiratory Rate (12-18) 18 16 Respiratory rate source Observation Observation Oxygen Delivery Method Room Air Blood Pressure (90/60-120/80) 132/60 H 129/78 H 122/49 H Blood Pressure Mean (mm Hg) 84 95 73 Source Monitor Monitor Monitor Position Semi-Fowlers Sitting Blood Pressure Location Left Arm Left Arm History Since Last Visit- (Skip if this is Patient's initial visit) Have you changed medications since your No No No last visit? Any new allergies or adverse reactions No No No Had a fall/change in ADL's that may No No No increase risk of falls Signs or symptoms of abuse and/or No No neglect since last visit Have you been in the hospital since your No No No last visit? Has dressing in place as prescribed Yes Yes Yes Has compression in place as prescribed Yes N/A Has offloadiing in place as prescribed N/A Yes Experienced any changes in pain level or No management Left Footwear Regular Shoe Right Footwear Regular Shoe Pain Scale: 0-10 Numeric Is Patient Pain Free? Yes Yes 07/14/20 10:49 - Today's Visit Information Type of service Follow-up Visit (Physician/MATERIAL STOCKKEEPER YARD ) Arrival Mode Wheelchair Transfer Assistance Manual Transfer Assist (Other) Accompanied by Patient Identification Verified (Name & Yes ) Patient Requires Transmission-Based No Precautions Height and Weight Body Mass Index (BMI) 22.6 BMI Classification Normal Vital Signs Temperature (97.8 F-99.1 F) 97.5 F L Temperature Source Temporal Pulse Rate (60-100) 72 Pulse Location Monitor Respiratory Rate (12-18) 18 Respiratory rate source Observation Oxygen Delivery Method Blood Pressure (90/60-120/80) 99/54 L Blood Pressure Mean (mm Hg) 69 Source Monitor Position Sitting Blood Pressure Location Left Arm History Since Last Visit- (Skip if this is Patient's initial visit) Have you changed medications since your No last visit? Any new allergies or adverse reactions No Had a fall/change in ADL's that may No increase risk of falls Signs or symptoms of abuse and/or No neglect since last visit Have you been in the hospital since your No last visit? Has dressing in place as prescribed Yes Has compression in place as prescribed No Has offloadiing in place as prescribed Yes Experienced any changes in pain level or No management Left Footwear Right Footwear Pain Scale: 0-10 Numeric Is Patient Pain Free? Yes WC - Nurse 1 - General Ulcer Measurement Start: 06/23/20 10:17 Freq: Status: Active Protocol: Activity Type Activity Date Activity User E-Sign Co-Sign Detail Recorded Client Recorded Date Recorded By Document 06/23/20 10:17 KR [id number] 06/23/20 10:27 KR Document 06/30/20 10:11 KR [id number] 06/30/20 10:22 KR Document 07/07/20 10:15 [facility] Desktop 07/07/20 10:30 [facility] Document 07/14/20 10:49 RB Desktop 07/14/20 10:56 RB 06/23/20 06/30/20 07/07/20 10:17 10:11 10:15 Wound Center Nurse 1 #4 Right Lat Foot -Current Size (cm) - Length 0.1 -Current Size (cm) - Width 0.1 -Current Size (cm) - Depth 0.1 -Total Square Cm 0.01 -Exudate Amt None Present -Wound Margin Distinct, Outline Attached -Granulation Amt Small (1-33%) -Granulation Quality Hyper- granulation -Necrosis Amt None Present (0 %) -Texture (Cammie-wound Skin Appearance) Assessed, Scarring -Moisture (Cammie-wound Skin Appearance) No Abnormality, Assessed -Color (Cammie-wound Skin Appearance) Assessed -Temperature (Cammie-wound Skin No Abnormality Appearance) (Pt Warm) -Tenderness on Palpation (Cammie-wound No Skin Appearance) -Ulcer Cleansing soap and water -Anesthetic Used 4% Lidocaine Solution #3 R Lat LE -Combined with other wound No -Current Size (cm) - Length 0.1 0.1 0.1 -Current Size (cm) - Width 0.1 0.1 0.1 -Current Size (cm) - Depth 0.1 0.1 0.1 -Total Square Cm 0.01 0.01 0.01 -Photo Taken No No -Epithelialization Large 67-100% -Exudate Amt Small None Present -Exudate Type Serosanguineous -Wound Margin Distinct, Flat & Intact Outline Attached -Granulation Amt Medium (34-66%) Small (1-33%) -Granulation Quality Hyper- [place] granulation -Slough/Fibrin Yes -Necrosis Amt None Present (0 Small (1-33%) Small (1-33%) %) -Necrotic Tissue Type Adherent Slough Adherent Slough Eschar -Structure Exposed N/A -Texture (Cammie-wound Skin Appearance) Assessed, Scarring Assessed, Scarring Scarring -Moisture (Cammie-wound Skin Appearance) No Abnormality, No Abnormality Assessed Assessed -Color (Cammie-wound Skin Appearance) No Abnormality, No Abnormality Assessed Assessed -Temperature (Cammie-wound Skin No Abnormality No Abnormality No Abnormality Appearance) (Pt Warm) (Pt Warm) (Pt Warm) -Tenderness on Palpation (Cammie-wound No No No Skin Appearance) -Ulcer Cleansing soap and water Wound Cleanser soapy water -Foul Odor after Cleansing No No -Anesthetic Used 4% Lidocaine 4% Lidocaine 4% Lidocaine Solution Solution Solution #2 R Hip -Combined with other wound No -Current Size (cm) - Length 1.3 1.1 1.1 -Current Size (cm) - Width 0.6 1.1 0.9 -Current Size (cm) - Depth 3.1 0.7 1 -Total Square Cm 0.78 1.21 0.99 -Photo Taken No No -Epithelialization Small 1-33% -Tunneling Yes -Tunneling Position (O'clock) 3 2 -Tunneling Distance (cm) 2.1 2.5 -Undermining/Tunneling No -Circular Undermining No -Exudate Amt Medium Small Large -Exudate Type Serosanguineous Serosanguineous Serosanguineous -Wound Margin Distinct, Distinct, Distinct, Outline Outline Outline Attached Attached Attached -Granulation Amt Medium (34-66%) Medium (34-66%) Large (67-100%) -Granulation Quality Red [place] Red -Slough/Fibrin Yes -Necrosis Amt Medium (34-66%) Medium (34-66%) Small (1-33%) -Necrotic Tissue Type Adherent Slough Adherent Slough Adherent Slough -Structure Exposed N/A -Texture (Cammie-wound Skin Appearance) Assessed, Scarring Assessed, Scarring Scarring -Moisture (Cammie-wound Skin Appearance) No Abnormality, No Abnormality, Assessed Assessed Dry/Scaly -Color (Cammie-wound Skin Appearance) No Abnormality, No Abnormality Assessed Assessed -Temperature (Cammie-wound Skin No Abnormality No Abnormality No Abnormality Appearance) (Pt Warm) (Pt Warm) (Pt Warm) -Tenderness on Palpation (Cammie-wound No No Yes Skin Appearance) -Ulcer Cleansing soap and water Wound Cleanser Rinsed/ Irrigated with Saline -Foul Odor after Cleansing No No -Anesthetic Used 4% Lidocaine 4% Lidocaine 5% Lidocaine Solution Solution Gel #1 R ankle -Combined with other wound No -Current Size (cm) - Length 0.1 1.3 0.7 -Current Size (cm) - Width 0.1 1 0.5 -Current Size (cm) - Depth 0.1 0.2 0.3 -Total Square Cm 0.01 1.3 0.35 -Photo Taken No No -Epithelialization Small 1-33% -Tunneling No -Undermining/Tunneling No -Circular Undermining No -Exudate Amt None Present Small Small -Exudate Type Serosanguineous Serosanguineous -Wound Margin Distinct, Distinct, Thickened Outline Outline Attached Attached -Granulation Amt None Present (0 Small (1-33%) Small (1-33%) %) -Granulation Quality [place] Red -Slough/Fibrin Yes -Necrosis Amt None Present (0 Small (1-33%) Large (67-100%) %) -Necrotic Tissue Type Adherent Slough Adherent Slough -Structure Exposed N/A -Texture (Cammie-wound Skin Appearance) Assessed, Scarring Assessed, Scarring Scarring -Moisture (Cammie-wound Skin Appearance) No Abnormality, No Abnormality Assessed Assessed -Color (Cammie-wound Skin Appearance) No Abnormality, No Abnormality Assessed -Temperature (Cammie-wound Skin No Abnormality No Abnormality No Abnormality Appearance) (Pt Warm) (Pt Warm) (Pt Warm) -Tenderness on Palpation (Cammie-wound No No Skin Appearance) -Ulcer Cleansing soap and water Wound Cleanser soapy water -Foul Odor after Cleansing No No No -Anesthetic Used 4% Lidocaine 4% Lidocaine 4% Lidocaine Solution Solution Solution Right Calf (cm) 27.3 Right Ankle (cm) 19.7 07/14/20 10:49 Wound Center Nurse 1 #4 Right Lat Foot -Current Size (cm) - Length -Current Size (cm) - Width -Current Size (cm) - Depth -Total Square Cm -Exudate Amt -Wound Margin -Granulation Amt -Granulation Quality -Necrosis Amt -Texture (Cammie-wound Skin Appearance) -Moisture (Cammie-wound Skin Appearance) -Color (Cammie-wound Skin Appearance) -Temperature (Cammie-wound Skin Appearance) -Tenderness on Palpation (Cammie-wound Skin Appearance) -Ulcer Cleansing -Anesthetic Used #3 R Lat LE -Combined with other wound No -Current Size (cm) - Length 0 -Current Size (cm) - Width 0 -Current Size (cm) - Depth 0 -Total Square Cm 0 -Photo Taken -Epithelialization Large 67-100% -Exudate Amt -Exudate Type -Wound Margin -Granulation Amt -Granulation Quality -Slough/Fibrin -Necrosis Amt -Necrotic Tissue Type -Structure Exposed -Texture (Cammie-wound Skin Appearance) -Moisture (Cammie-wound Skin Appearance) -Color (Cammie-wound Skin Appearance) -Temperature (Cammie-wound Skin Appearance) -Tenderness on Palpation (Cammie-wound Skin Appearance) -Ulcer Cleansing -Foul Odor after Cleansing -Anesthetic Used #2 R Hip -Combined with other wound No -Current Size (cm) - Length 0.8 -Current Size (cm) - Width 0.8 -Current Size (cm) - Depth 1 -Total Square Cm 0.64 -Photo Taken -Epithelialization -Tunneling Yes -Tunneling Position (O'clock) 2 -Tunneling Distance (cm) 3.6 -Undermining/Tunneling No -Circular Undermining No -Exudate Amt Medium -Exudate Type Serosanguineous -Wound Margin Thickened & Rolled Under -Granulation Amt Medium (34-66%) -Granulation Quality [place] -Slough/Fibrin Yes -Necrosis Amt Large (67-100%) -Necrotic Tissue Type Adherent Slough -Structure Exposed N/A -Texture (Cammie-wound Skin Appearance) Assessed, Scarring -Moisture (Cammie-wound Skin Appearance) -Color (Cammie-wound Skin Appearance) No Abnormality, Assessed -Temperature (Cammie-wound Skin No Abnormality Appearance) (Pt Warm) -Tenderness on Palpation (Cammie-wound No Skin Appearance) -Ulcer Cleansing Wound Cleanser -Foul Odor after Cleansing No -Anesthetic Used 4% Lidocaine Solution #1 R ankle -Combined with other wound No -Current Size (cm) - Length 1 -Current Size (cm) - Width 0.6 -Current Size (cm) - Depth 0.2 -Total Square Cm 0.6 -Photo Taken -Epithelialization -Tunneling No -Undermining/Tunneling No -Circular Undermining No -Exudate Amt Small -Exudate Type Serosanguineous -Wound Margin Flat & Intact -Granulation Amt Medium (34-66%) -Granulation Quality [place] -Slough/Fibrin Yes -Necrosis Amt Small (1-33%) -Necrotic Tissue Type Adherent Slough -Structure Exposed N/A -Texture (Cammie-wound Skin Appearance) Assessed, Scarring -Moisture (Cammie-wound Skin Appearance) Assessed -Color (Cammie-wound Skin Appearance) Assessed -Temperature (Cammie-wound Skin No Abnormality Appearance) (Pt Warm) -Tenderness on Palpation (Cammie-wound Skin Appearance) -Ulcer Cleansing Wound Cleanser -Foul Odor after Cleansing No -Anesthetic Used 4% Lidocaine Solution Right Calf (cm) Right Ankle (cm) WC - Nurse 2 - General Ulcer CM Notes Start: 06/23/20 10:17 Freq: Status: Active Protocol: Activity Type Activity Date Activity User E-Sign Co-Sign Detail Recorded Client Recorded Date Recorded By Document 06/23/20 14:31 PL [id number] 06/23/20 14:36 PL Document 06/30/20 10:43 VIELKA [id number] 06/30/20 11:07 JF Document 07/07/20 13:36 PL [id number] 07/07/20 13:41 PL Document 07/14/20 12:29 PL [id number] 05/28/21 12:32 PL 06/23/20 06/30/20 07/07/20 14:31 10:43 13:36 Wound Center Nurse 2 #3 R Lat LE -Time 10:35 10:56 10:40 -Correct Patient Yes Yes Yes -Correct Side, Site, Position Yes Yes Yes -Correct Procedure Yes Yes Yes -Procedure Performed Yes Yes Yes -Type of Procedure Debridement Debridement Debridement -Clinical Debridement Subcutaneous Subcutaneous Subcutaneous -Tissue Removed Subcutaneous Subcutaneous Subcutaneous -Post Debridement (cm) - Length 0.5 0.4 0.2 -Post Debridement (cm) - Width 0.5 0.5 0.3 -Post Debridement (cm) - Depth 0.1 0.1 0.1 -Total Square (Post) (cm) 0.25 0.20 0.06 -Area of Debridement (cm) - Length 0.5 0.4 0.2 -Area of Debridement (cm) - Width 0.5 0.5 0.3 -Total Square (Area) (cm) 0.25 0.20 0.06 -Tunneling No No No -Undermining/Tunneling No No No -Circular Undermining No No No -Wound/Ulcer Outcome Not Healed Not Healed Not Healed -Ulcer Cleansing Rinsed/ Rinsed/ Rinsed/ Irrigated with Irrigated with Irrigated with Saline Saline Saline -Foul Odor after Cleansing No No No -Bioengineered Tissue Yes Yes Yes -Type of Bioengineered Tissue Epifix Epifix Epifix 18mm Disc -Expiration Date 02/17/25 03/20/25 04/17/25 -Product Lot Number [id number] -Percent Used 100 100 100 -Lot number of Saline Used [id number] -Bleeding Controlled with Pressure NA Pressure -Offloading No -Treatment Response Procedure Procedure Procedure Tolerated Well Tolerated Well Tolerated Well -Debridement - Subq, 1st 20sq cm No No No -Apply Skin Sub - 1st 25 sq cm - Legs 1 1 1 -Epifix (per sq cm) 4 4 -Epifix 18mm Disc 3 #2 R Hip -Time 10:35 10:57 10:40 -Correct Patient Yes Yes Yes -Correct Side, Site, Position Yes Yes Yes -Correct Procedure Yes Yes Yes -Procedure Performed Yes Yes Yes -Type of Procedure Debridement Debridement Debridement -Clinical Debridement Muscle / Fascia Muscle / Fascia Muscle / Fascia -Tissue Removed Epidermis, Muscle,Fascia Epidermis, Dermis, Dermis, Subcutaneous, Subcutaneous, Muscle Muscle -Post Debridement (cm) - Length 1.7 1.5 1.5 -Post Debridement (cm) - Width 1.5 1.5 1.3 -Post Debridement (cm) - Depth 2.2 2.1 2.0 -Total Square (Post) (cm) 2.55 2.25 1.95 -Area of Debridement (cm) - Length 1.7 1.5 1.5 -Area of Debridement (cm) - Width 1.5 1.5 1.3 -Total Square (Area) (cm) 2.55 2.25 1.95 -Tunneling No Yes Yes -Tunneling Position (O'clock) 2 2 -Tunneling Distance (cm) 5 3.5 -Undermining/Tunneling No No No -Circular Undermining No No No -Wound/Ulcer Outcome Not Healed Not Healed Not Healed -Ulcer Cleansing Rinsed/ Rinsed/ Rinsed/ Irrigated with Irrigated with Irrigated with Saline Saline Saline -Foul Odor after Cleansing No No No -Bioengineered Tissue No No No -Bleeding Controlled with Pressure Pressure -Offloading No -Treatment Response Procedure Procedure Tolerated Well Tolerated Well -Debridement - Muscle / Fascia, 1st Yes Yes Yes 20sq cm #1 R ankle -Time 10:35 10:59 10:40 -Correct Patient Yes Yes Yes -Correct Side, Site, Position Yes Yes Yes -Correct Procedure Yes Yes Yes -Procedure Performed Yes Yes Yes -Type of Procedure Debridement Debridement Debridement -Clinical Debridement Subcutaneous Subcutaneous Subcutaneous -Tissue Removed Subcutaneous Subcutaneous Subcutaneous -Post Debridement (cm) - Length 1.2 1.1 1.1 -Post Debridement (cm) - Width 0.9 0.8 0.8 -Post Debridement (cm) - Depth 0.3 0.2 0.2 -Total Square (Post) (cm) 1.08 0.88 0.88 -Area of Debridement (cm) - Length 1.2 1.1 1.1 -Area of Debridement (cm) - Width 0.9 0.8 0.8 -Total Square (Area) (cm) 1.08 0.88 0.88 -Tunneling No No No -Undermining/Tunneling No No No -Circular Undermining No No No -Wound/Ulcer Outcome Not Healed Not Healed Not Healed -Ulcer Cleansing Rinsed/ Rinsed/ Rinsed/ Irrigated with Irrigated with Irrigated with Saline Saline Saline -Foul Odor after Cleansing No No No -Bioengineered Tissue No No No -Bleeding Controlled with Pressure Pressure -Offloading No -Treatment Response Procedure Procedure Tolerated Well Tolerated Well -Debridement - Subq, 1st 20sq cm No Yes No Pain Scale: 0-10 Numeric Is Patient Pain Free? Yes Yes Yes 07/14/20 12:29 Wound Center Nurse 2 #3 R Lat LE -Time -Correct Patient -Correct Side, Site, Position -Correct Procedure -Procedure Performed -Type of Procedure -Clinical Debridement -Tissue Removed -Post Debridement (cm) - Length -Post Debridement (cm) - Width -Post Debridement (cm) - Depth -Total Square (Post) (cm) -Area of Debridement (cm) - Length -Area of Debridement (cm) - Width -Total Square (Area) (cm) -Tunneling -Undermining/Tunneling -Circular Undermining -Wound/Ulcer Outcome -Ulcer Cleansing -Foul Odor after Cleansing -Bioengineered Tissue -Type of Bioengineered Tissue -Expiration Date -Product Lot Number -Percent Used -Lot number of Saline Used -Bleeding Controlled with -Offloading -Treatment Response -Debridement - Subq, 1st 20sq cm -Apply Skin Sub - 1st 25 sq cm - Legs -Epifix (per sq cm) -Epifix 18mm Disc #2 R Hip -Time 11:14 -Correct Patient Yes -Correct Side, Site, Position Yes -Correct Procedure Yes -Procedure Performed Yes -Type of Procedure Debridement -Clinical Debridement Muscle / Fascia -Tissue Removed Subcutaneous, Muscle -Post Debridement (cm) - Length 0.8 -Post Debridement (cm) - Width 1.3 -Post Debridement (cm) - Depth 0.5 -Total Square (Post) (cm) 1.04 -Area of Debridement (cm) - Length 0.8 -Area of Debridement (cm) - Width 1.3 -Total Square (Area) (cm) 1.04 -Tunneling Yes -Tunneling Position (O'clock) 1 -Tunneling Distance (cm) 3.5 -Undermining/Tunneling No -Circular Undermining No -Wound/Ulcer Outcome Not Healed -Ulcer Cleansing Rinsed/ Irrigated with Saline -Foul Odor after Cleansing No -Bioengineered Tissue No -Bleeding Controlled with Pressure -Offloading -Treatment Response Procedure Tolerated Well -Debridement - Muscle / Fascia, 1st Yes 20sq cm #1 R ankle -Time 11:14 -Correct Patient Yes -Correct Side, Site, Position Yes -Correct Procedure Yes -Procedure Performed Yes -Type of Procedure Debridement -Clinical Debridement Subcutaneous -Tissue Removed Subcutaneous -Post Debridement (cm) - Length 0.9 -Post Debridement (cm) - Width 0.6 -Post Debridement (cm) - Depth 0.3 -Total Square (Post) (cm) 0.54 -Area of Debridement (cm) - Length 0.9 -Area of Debridement (cm) - Width 0.6 -Total Square (Area) (cm) 0.54 -Tunneling No -Undermining/Tunneling No -Circular Undermining No -Wound/Ulcer Outcome Not Healed -Ulcer Cleansing Rinsed/ Irrigated with Saline -Foul Odor after Cleansing No -Bioengineered Tissue No -Bleeding Controlled with -Offloading -Treatment Response -Debridement - Subq, 1st 20sq cm Yes Pain Scale: 0-10 Numeric Is Patient Pain Free? Yes - Nurse 3 - General Ulcer D/C NN Start: 06/23/20 10:17 Freq: Status: Active Protocol: Activity Type Activity Date Activity User E-Sign Co-Sign Detail Recorded Client Recorded Date Recorded By Document 06/23/20 12:41 VIELKA [id number] 06/23/20 12:44 JF Edit Result 06/23/20 12:41 JF (1) [id number] 06/25/20 09:08 PL Document 06/30/20 10:50 PL [id number] 07/03/20 06:57 PL Document 07/07/20 11:20 BMF Desktop 07/07/20 11:21 BMF (1) Right - Multi-Layered Wrap Application => Unna Boot - Right => ($) 06/23/20 06/30/20 07/07/20 12:41 10:50 11:20 Wound Care Nurse 3 #4 Right Lat Foot -Ulcer Cleansing Rinsed/ Irrigated with Saline -Foul Odor after Cleansing No -Primary Dressing Covered/Secured with Dry Gauze & Roll Gauze, Secured with Tape #3 R Lat LE -Ulcer Cleansing Rinsed/ Irrigated with Saline -Foul Odor after Cleansing No -Other Dressing epifix, unna boot -Primary Dressing Covered/Secured with Dry Gauze & Roll Gauze, Secured with Tape #2 R Hip -Ulcer Cleansing Rinsed/ Rinsed/ Irrigated with Irrigated with Saline Saline -Foul Odor after Cleansing No No -Primary Dressing Applied Aquacel AG 2x2 Aquacel Extra, Mepilex Border -Primary Dressing Covered/Secured with Dry Gauze, Secured with Tape -Aquacel Extra 1 -Aquacel AG 2x2 2 -Mepilex Border 1 #1 R ankle -Ulcer Cleansing Rinsed/ Irrigated with Saline -Foul Odor after Cleansing No -Other Dressing epifix, unna -Primary Dressing Covered/Secured with Dry Gauze, Secured with Tape Right -Multi-Layered Wrap Application Unna Boot - Unna Boot - Unna Boot - Right ($) Right ($) Right ($) -Compression Wrap Unna Boot ($) ( Unna Boot ($) ( single) single) Pain Scale: 0-10 Numeric Is Patient Pain Free? Yes Yes WC - Visit Discharge Discharge Condition Stable Stable Ambulatory Status Wheelchair Wheelchair Transportation Private Auto Private Auto Accompanied by caregiver gr son Medication Reconcilliation completed & Yes provided to patient/care provider Clinical Summary of Care Provided Yes Wound debrided: Right lateral LE Laterality: Right No debridement was completed: No debridement was completed today (healed) Additional Wound Wound debrided: right ankle Laterality: Right Wound Grade/Stage: Stage 3 Type of Debridement: Excisional debridement Anesthesia Used: 4% Lidocaine Solution, 5% Lidocaine Gel and Cetacaine Depth: Down to and including healthy tissue and in the subcutaneous layer Percentage of wound debrided: 100 Instrument Used: 3mm curette Tissue Removed: Yellow slough, devitalized tissue Severity: Fat Layer Exposed Amount of bleeding with debridement: Mild Bleeding Controlled with: Compression and gauze Patient tolerated procedure: Patient tolerated procedure well Additional Wound Wound debrided: right hip Laterality: Right Wound Grade/Stage: Stage 3 Depth: Down to and including healthy tissue, in the subcutaneous layer and to muscle Percentage of wound debrided: 100 Instrument Used: 3mm curette Tissue Removed: Yellow slough, devitalized tissue Severity: Necrosis of Muscle Amount of bleeding with debridement: Mild Bleeding Controlled with: Compression and gauze Patient tolerated procedure: Patient tolerated procedure well Assessment/Plan Assessment/Plan (1) Diabetic ulcer of right ankle: CODE(S): E11.622 - Type 2 diabetes mellitus with other skin ulcer; L97.319 - Non-pressure chronic ulcer of right ankle with unspecified severity (2) Diabetic ulcer of right lower leg: CODE(S): E11.622 - Type 2 diabetes mellitus with other skin ulcer; L97.919 - Non-pressure chronic ulcer of unspecified part of right lower leg with unspecified severity (3) Decubitus ulcer of right hip, stage 4: CODE(S): L89.214 - Pressure ulcer of right hip, stage 4 PLAN: ?Debridement performed today in clinic.? Right hip wound packed with Aquacel. Right lateral calf is healed. Right ankle ulcer covered with Aquacel Ag.? At home wound-care instructions: The patient's home health care nurse comes out on Mondays and Wednesdays.? His right hip ulcer was packed today with Aquacel.? Leave packing in place until Friday.? On Friday and Friday, the nurse will pack the right hip wound and tunnel with Aquacel Ag. Off-loading: Avoid pressure at ulcer sites.? Avoid prolonged standing or dangling of the legs.? When seated, keep feet elevated at chest level.? If Unna boots begin to feel tight, elevate the feet.? A Roho cushion was ordered for the patient to use when utilizing his wheelchair.? He was instructed on appropriate offloading when seated/lying down.? Frequent position changes were encouraged.? Diet: Patient encouraged to increase protein and vitamin C intake while taking caution to avoid high carbohydrate and/or sugar intake.? Labs/cultures/imaging: He completed a course of doxycycline on 04/11/2020.? Patient's right hip culture from 04/07/2020 was positive for 1+ MRSA (susceptible to Bactrim), and he was started on Bactrim by his PCP on 04/11/20.? Patient's right lower leg culture from 04/14/2020 was positive for rare MRSA (susceptible to Bactrim).? Bactrim was continued.? He later developed right lower extremity erythema, warmth, and swelling which spread to the left lower extremity as well. Bactrim was discontinued and he was started on Clindamycin 450mg PO TID x 10 days. (Cultures showed susceptibility to clindamycin, and negative for inducible clindamycin resistance.)? With initiation of clindamycin, the patient and his caregiver reported significant improvement in the erythema and edema of his bilateral lower extremities.? Clindamycin was continued for another 7 days.? Due to clinical signs of infection, new cultures were collected from the right hip on 04/28/2020, which were positive for 3+ Stenotrophomonas maltophilia and 1+ corynebacterium striatum.? Susceptibility studies showed susceptibility of Stenotrophomonas maltophilia to levofloxacin and Bactrim.? Anaerobic studies were negative.? The patient was started on levofloxacin 750 mg once daily for 7 days.? Per his primary care provider, this was not well-tolerated (caused weakness and confusion) and his primary care provider discontinued levofloxacin and started him on Bactrim; side effects resolved with antibiotic change.? He completed his course of Bactrim. He was started on doxycycline by his PCP on approximately 05/30/2019 for a UTI.? He has been off of antibiotics for approximately 1 week now.? Cultures again collected from the right hip on 06/16/2020 demonstrated 1+ Streptococcus agalactiae (B). Given his recurrent infections in the right hip ulcer, the numerous courses of oral antibiotics he has recently completed, and his GI disturbances with the use of oral antibiotics, he was directed to the emergency department for evaluation and IV antibiotic treatment.? He presented to [facility] emergency department, where he received a dose of IV Unasyn and was discharged on cefdinir.? He has completed his course of cefdinir. Labs were done while he was at the hospital on 06/19/2020.? Blood cultures were negative.? His CBC demonstrated anemia.? His potassium level was elevated, but the lab report notes moderate hemolysis which may falsely increase this level.? His lactic acid level was normal.? A CMP was otherwise unremarkable. His right hip x-ray from 06/23/2020 revealed no bone reabsorption to suggest osteomyelitis. We will continue to attempt to schedule a consult with a plastic surgeon regarding right hip ulcer with deep tunneling which may require unroofing/surgical debridement.? The patient has been very reluctant to schedule and has voiced several scheduling concerns/conflicts. Follow-up: Return to clinic in 1 week for re-evaluation.? Return sooner or report to the emergency room should symptoms worsen, or new symptoms arise.? We have discussed in great detail the clinical signs of infection or worsening overall condition and emphasized the importance of seeking emergency medical care should these occur.?
== END 2020-07-17 23:59 ==
LOC: WC 10:30
PROVIDERS: PCP Student in an Organized Health Care Education/Training Program; Referring Provider Family Medicine; Visit Provider Nurse Practitioner Family
DX: E11.622 Type 2 diabetes mellitus with other skin ulcer (principal); E11.621 Type 2 diabetes mellitus with foot ulcer; L97.312 Non-pressure chronic ulcer of right ankle with fat layer exposed; L97.812 Non-pressure chronic ulcer of other part of right lower leg with fat layer exposed; L89.214 Pressure ulcer of right hip, stage 4; E78.5 Hyperlipidemia, unspecified; I10 Essential (primary) hypertension; F10.20 Alcohol dependence, uncomplicated; Z72.0 Tobacco use; D64.9 Anemia, unspecified; L89.213 Pressure ulcer of right hip, stage 3
CPT/HCPCS: 11042; 11043; 15271; 29580; 73502; Q4186

== ENCOUNTER 2020-08-11 10:15 | Outpatient (RCR) | payer MEDICARE, SELFPAY ==
[2020-07-18 00:28] VITALS: BP 99/54; PULSE 72; RESP 18; TEMP 36.4
[2020-07-24 10:24] VITALS: BP 139/56; PULSE 81; TEMP 36.2; BMI 22.6
--- NOTE | 2020-07-24 15:48 | HP.PCM_ITS ---
History of Present Illness Date of Service: 07/24/20 Chief Complaint: Right trochanteric pressure sore, Stage IV and nonhealing diabetic ulcer right lateral ankle. History of Wound: 74 year old man with a history of diabetes mellitus presented to the Wound Center with nonhealing ulcers right lower extremity as well as a right trochanteric pressure sore. The ulcers developed when he suffered a fall at home in December, and wasn't found for 5 days. He had a stroke and has residual impaired movement and sensation of his right lower extremity. He reports he is able to ambulate with the use of a walker, and also uses a wheelchair. Wound cultures in March, showed MRSA. He was treated with Bactrim. Wound culture on 05/02/20 showed Stenotrophomonas maltophilia. He was treated with Levaquin. Wound culture on 06/16/20 showed Streptococcus agalactiae. He was treated with Cefdinir. Right hip x-ray on 06/23/20 did not show evidence of osteomyelitis. The ulcers are being treated with Silver dressing changes. Today he denies fever. His appetite is ok. Encourage nutritional s upplementation with protein to help the healing process. I was asked to evaluate this patient for surgical options for treatment. Progress of Wound: Slight improvement. [facility] Medical History (Updated 07/26/20 @ 16:[address] Lorenzo Fenton MD) Alcoholism Bipolar disorder Decubitus ulcer of right hip, stage 4 Diabetes mellitus type 2 in nonobese Diabetic ulcer of right ankle Diabetic ulcer of right foot Essential tremor History of MRSA infection Hyperlipidemia Hypertension Stroke Home Medications Gralise 600 mg PO QHS 09/12/16 [History Last Taken Unknown] metoprolol succinate 100 mg PO DAILY 09/12/16 [History Last Taken Unknown] atorvastatin [Lipitor] 40 mg PO DAILY 09/13/16 [History Last Taken Unknown] bacitracin zinc 1 applic TOPICAL TID #1 tube 09/18/16 [Rx Last Taken Unknown] aspirin 81 mg PO DAILY 06/19/20 [History Last Taken Unknown] cefdinir 300 mg PO BID 10 Days #20 cap 06/19/20 [Rx Last Taken Unknown] levothyroxine [Synthroid] 25 mcg PO DAILY 06/19/20 [History Last Taken Unknown] lorazepam 1 mg PO Q8H PRN PRN 06/19/20 [History Last Taken Unknown] terazosin 5 mg PO DAILY 06/19/20 [History Last Taken Unknown] tramadol 50 mg PO Q12H PRN PRN 06/19/20 [History Last Taken Unknown] Allergy/AdvReac Type Severity Reaction Status Date / Time No Known Allergies Allergy Verified 06/19/20 16:47 Social History household members: family Smoking Status: Current every day smoker ROS ROS Narrative Constitutional: Denies: Chills, Fever, Night Sweats Eyes: Denies: Conjunctivae Inflammation, Eyelid Inflammation, Redness HEENT: Reports: Difficulty Hearing, Hard of Hearing Cardiovascular: Denies: Chest Pain Respiratory: Reports: Cough Gastrointestinal: Reports: Nausea. Denies: Diarrhea, Vomiting Genitourinary: Denies: Dysuria, Hematuria Musculoskeletal: Reports: Leg Pain - On palpation/manipulation of ulcer. Denies: Foot Pain Skin: Reports: Wounds - Ulcers of right hip, right lateral leg, right ankle, and right foot Neurological: Reports: Tremor. Denies: Change in Speech, Confusion Psychiatric: Reports: - - Bipolar disorder Endocrine: Reports: - - Type II diabetes mellitus Hematologic/ Lymphatic: Reports: Anemia Vital Signs Vital Signs Vital Signs: 07/24/20 10:24 Temperature 97.1 F L Temperature Source Temporal Pulse Rate 81 Blood Pressure 139/56 H Blood Pressure Mean 83 Blood Pressure Source Monitor Blood Pressure Position Sitting Blood Pressure Location Left Arm Weight Body Mass Index (BMI) 22.6 Physical Exam Narrative General: Alert, Cooperative, No apparent distress. HEENT: PERRL. EOMI. Oral: Moist Mucosa Neck: Supple, nontender. No cervical adenopathy. Lungs: Clear to auscultation. Cardiovascular: Regular rate, Regular Rhythm. Abdomen: Soft, nondistended. Extremities: No clubbing, No cyanosis, No edema. Radial pulses are palpable. Dorsalis pedis pulses are palpable. Has nonhealing diabetic ulcer right lateral ankle. Some granulation tissue seen. No exposed bone. On the right trochanteric area is a pressure sore that extends down to bone making it a Stage IV. Some undermining present. No purulent drainage. Has weakness right lower extremity. Neuro: CN II - XII grossly intact. Psych: Normal mood and affect. Debridement Note Debridement Note Post-Debridement Measurements and Additional Note: Post-Debridement Measurements/Treatment - Nurse 1 - General Ulcer Assessment Start: 07/24/20 10:23 Freq: Status: Active Protocol: NADIA Activity Type Activity Date Activity User E-Sign Co-Sign Detail Recorded Client Recorded Date Recorded By Document 07/24/20 10:24 HARDIK [id number] 07/24/20 10:29 HARDIK 07/24/20 10:24 - Today's Visit Information Type of service Follow-up Visit (Physician/VIDEO EDITOR ) Arrival Mode Wheelchair Patient Identification Verified (Name & Yes ) Height and Weight Body Mass Index (BMI) 22.6 BMI Classification Normal Vital Signs Temperature (97.8 F-99.1 F) 97.1 F L Temperature Source Temporal Pulse Rate (60-100) 81 Pulse Location Monitor Blood Pressure (90/60-120/80) 139/56 H Blood Pressure Mean 83 Source Monitor Position Sitting Blood Pressure Location Left Arm History Since Last Visit- (Skip if this is Patient's initial visit) Have you changed medications since your No last visit? Any new allergies or adverse reactions No Had a fall/change in ADL's that may No increase risk of falls Signs or symptoms of abuse and/or No neglect since last visit Have you been in the hospital since your No last visit? Has dressing in place as prescribed Yes Has compression in place as prescribed N/A Has offloadiing in place as prescribed N/A Experienced any changes in pain level or No management Left Footwear Slipper Right Footwear Regular Shoe Pain Scale: 0-10 Numeric Is Patient Pain Free? Yes DELVIS - Nurse 1 - General Ulcer Measurement Start: 07/24/20 10:23 Freq: Status: Active Protocol: Activity Type Activity Date Activity User E-Sign Co-Sign Detail Recorded Client Recorded Date Recorded By Document 07/24/20 10:24 HARDIK [id number] 07/24/20 10:29 HARDIK 07/24/20 10:24 Wound Center Nurse 1 #2 R Hip -Current Size (cm) - Length 0.5 -Current Size (cm) - Width 0.8 -Current Size (cm) - Depth 1 -Total Square Cm 0.40 -Tunneling Position (O'clock) 2 -Tunneling Distance (cm) 2.1 -Exudate Amt Small -Exudate Type Serosanguineous -Wound Margin Distinct, Outline Attached -Granulation Amt Medium (34-66%) -Granulation Quality Red -Necrosis Amt Medium (34-66%) -Necrotic Tissue Type Adherent Slough -Texture (Cammie-wound Skin Appearance) Assessed, Scarring -Moisture (Cammie-wound Skin Appearance) No Abnormality, Assessed -Color (Cammie-wound Skin Appearance) No Abnormality, Assessed -Temperature (Cammie-wound Skin No Abnormality Appearance) (Pt Warm) -Tenderness on Palpation (Cammie-wound No Skin Appearance) -Ulcer Cleansing Rinsed/ Irrigated with Saline -Foul Odor after Cleansing No -Anesthetic Used 4% Lidocaine Solution #1 R ankle -Current Size (cm) - Length 0.9 -Current Size (cm) - Width 1.2 -Current Size (cm) - Depth 4 -Total Square Cm 1.08 -Exudate Amt Small -Exudate Type Serosanguineous -Wound Margin Distinct, Outline Attached -Granulation Amt Medium (34-66%) -Granulation Quality Red -Necrosis Amt Medium (34-66%) -Necrotic Tissue Type Adherent Slough -Texture (Cammie-wound Skin Appearance) Assessed, Scarring -Moisture (Cammie-wound Skin Appearance) No Abnormality, Assessed -Color (Cammie-wound Skin Appearance) No Abnormality, Assessed -Temperature (Cammie-wound Skin No Abnormality Appearance) (Pt Warm) -Tenderness on Palpation (Cammie-wound No Skin Appearance) -Ulcer Cleansing Rinsed/ Irrigated with Saline -Foul Odor after Cleansing No -Anesthetic Used 4% Lidocaine Solution Right Calf (cm) 36.6 Right Ankle (cm) 25.4 WC - Nurse 2 - General Ulcer CM Notes Start: 07/24/20 10:23 Freq: Status: Active Protocol: Activity Type Activity Date Activity User E-Sign Co-Sign Detail Recorded Client Recorded Date Recorded By Document 07/24/20 10:40 VIELKA [id number] 07/24/20 10:42 VIELKA Edit Result 07/24/20 10:40 VIELKA (1) [id number] 07/24/20 10:56 VIELKA (1) #1 R ankle - Time => 10:55 - Correct Patient No => - Correct Side, Site, Position No => Yes - Correct Procedure No => Yes - Procedure Performed No => Yes - Type of Procedure => Debridement - Clinical Debridement => Subcutaneous - Tissue Removed => Subcutaneous - Post Debridement (cm) - Length => 1 - Post Debridement (cm) - Width => 1.2 - Post Debridement (cm) - Depth => 0.3 - Total Square (Post) (cm) => 1.2 - Area of Debridement (cm) - Length => 1 - Area of Debridement (cm) - Width => 1.2 - Total Square (Area) (cm) => 1.2 - Tunneling => No - Undermining/Tunneling => No - Ulcer Cleansing => Rinsed/Irrigated => with Saline - Foul Odor after Cleansing => No - Bioengineered Tissue => No - Type of Offloading => Total Contact Cast => (TCC) - Left ($) - Debridement - Subq, 1st 20sq cm => Yes 07/24/20 10:40 Wound Center Nurse 2 #4 Right Lat Foot -Correct Patient No -Correct Side, Site, Position No -Correct Procedure No -Procedure Performed No -Wound/Ulcer Outcome Not Healed #2 R Hip -Correct Patient No -Correct Side, Site, Position No -Correct Procedure No -Procedure Performed No -Wound/Ulcer Outcome Not Healed #1 R ankle -Time 10:55 -Correct Side, Site, Position Yes -Correct Procedure Yes -Procedure Performed Yes -Type of Procedure Debridement -Clinical Debridement Subcutaneous -Tissue Removed Subcutaneous -Post Debridement (cm) - Length 1 -Post Debridement (cm) - Width 1.2 -Post Debridement (cm) - Depth 0.3 -Total Square (Post) (cm) 1.2 -Area of Debridement (cm) - Length 1 -Area of Debridement (cm) - Width 1.2 -Total Square (Area) (cm) 1.2 -Tunneling No -Undermining/Tunneling No -Wound/Ulcer Outcome Not Healed -Ulcer Cleansing Rinsed/ Irrigated with Saline -Foul Odor after Cleansing No -Bioengineered Tissue No -Type of Offloading Total Contact Cast (TCC) - Left ($) -Debridement - Subq, 1st 20sq cm Yes Pain Scale: 0-10 Numeric Is Patient Pain Free? Yes WC - Nurse 3 - General Ulcer D/C NN Start: 07/24/20 10:23 Freq: Status: Active Protocol: Activity Type Activity Date Activity User E-Sign Co-Sign Detail Recorded Client Recorded Date Recorded By Document 07/24/20 11:05 [facility] [id number] 07/24/20 11:06 [facility] 07/24/20 11:05 Wound Care Nurse 3 #2 R Hip -Ulcer Cleansing Rinsed/ Irrigated with Saline -Foul Odor after Cleansing No -Primary Dressing Applied Aquacel AG 4x4 -Primary Dressing Covered/Secured with Dry Gauze, Secured with Tape -Other Covering drsg per kr heart nurse -Aquacel AG 4x4 1 #1 R ankle -Ulcer Cleansing Rinsed/ Irrigated with Saline -Foul Odor after Cleansing No -Primary Dressing Applied Aquacel AG 4x4 -Other Dressing drsg per kr heart nurse -Primary Dressing Covered/Secured with Dry Gauze, Secured with Tape -Aquacel AG 4x4 1 Treatment Response Procedure Tolerated Well Pain Scale: 0-10 Numeric Is Patient Pain Free? Yes WC - Visit Discharge Discharge Condition Stable Ambulatory Status Wheelchair Transportation Private Auto Accompanied by family/friend Facility Type Home Health Wound debrided: #1 Right lateral ankle. Laterality: Right Wound Grade/Stage: 2. Type of Debridement: Excisional debridement Anesthesia Used: 4% Lidocaine Solution Depth: Down to and including healthy tissue and in the subcutaneous layer Percentage of wound debrided: 100 Instrument Used: 3mm curette Tissue Removed: subcutaneous tissue. Severity: Fat Layer Exposed Amount of bleeding with debridement: Mild Bleeding Controlled with: Pressure and Compression and gauze Patient tolerated procedure: Patient tolerated procedure well Additional Wound Wound debrided: #2 Right trochanteric area. Laterality: Right Wound Grade/Stage: IV. Patient tolerated procedure: - Operative Diagnosis: No debridement was done today as it needs to be excised in surgery. Charges/Coding Visit Charges Office Visits / Consults: [id number] OV L4 New (-25 Modifier ICD-10 - L89.214, E11.622, E11.9, I63.9, Z86.14, F17.200) Procedures Integumentary [id number]: [id number] Berna subq tissue 20 sq cm/< (ICD-10 - L89.214, E11.622, E11.9, I63.9, Z86.14, F17.200) Assessment/Plan Assessment/Plan (1) Decubitus ulcer of right hip, stage 4: CODE(S): L89.214 - Pressure ulcer of right hip, stage 4 (2) Diabetic ulcer of right ankle: CODE(S): E11.622 - Type 2 diabetes mellitus with other skin ulcer; L97.319 - Non-pressure chronic ulcer of right ankle with unspecified severity (3) Diabetes: CODE(S): E11.9 - Type 2 diabetes mellitus without complications (4) Stroke: CODE(S): I63.9 - Cerebral infarction, unspecified (5) History of MRSA infection: CODE(S): Z86.14 - Personal history of Methicillin resistant Staphylococcus aureus infection (6) Smoker: CODE(S): F17.200 - Nicotine dependence, unspecified, uncomplicated PLAN: Continue Silver dressing changes daily to the right trochanteric pressure sore and right lateral ankle diabetic ulcer. His most recent wound culture on 06/16/20 showed Streptococcus agalactiae. He was treated with Cefdinir and has finished them. Wound Center notes reviewed. Labs and cultures reviewed. X-ray reviewed. The right trochanteric pressure is starting to heal inward. Palpation goes down to the bone. I suspect involvement of the underlying bone. Recommend excision of the right trochanteric pressure sore along with partial ostectomy for osteomyelitis. Postoperatively will apply the VAC. Will send tissue and bone to Pathology to evaluate for osteomyelitis and to Microbiology for culture. A positive culture will necessitate antibiotic therapy. Surgery will be done under general anesthesia with a surgical observation overnight stay in the hospital. Will need to order a CT Pelvis preop to evaluate for osteomyelitis. While in the hospital, I will check a HgbA1c and a Prealbumin. Anticipate increased metabolic demands and will encourage nutritional supplementation with protein to help the healing process. If the patient decides on eventual wound closure with a myocutaneous flap, the HgbA1c needs to be less than 8. After a flap, he will be on complete bedrest for 6 weeks. Followup Wound Center one week. I will see him in the Wound Center after his surgery. Patient was informed of the risks and complications of the procedure including alternatives to surgery. These were discussed with the patient personally. Patient voices understanding and wishes to proceed. Encouraged patient to stop smoking as it may have deleterious effects on wound healing.
--- NOTE | 2020-07-31 14:03 | CT_ITS ---
STUDY: CT PELVIS WITHOUT CONTRAST REASON FOR EXAM: Male, 74 years old. PRESSURE ULCER OF R HIP,STAGE 4 RADIATION DOSAGE (If Supplied By Facility): CTDIvol = ( 13.13 ) mGy, DLP = ( 495.65 ) mGycm TECHNIQUE: Transaxial imaging of the pelvis was performed with oral contrast, and without intravenous administration of contrast material. Individualized dose optimization techniques were used for this CT. COMPARISON: None. FINDINGS: Multiple small layering gallstones. Distended urinary bladder. There is evidence of an ulcerated lesion overlying the posterior lateral aspect of the right buttock measuring 2.7 cm x 2.1 cm x 2.9 cm. This extends to the region of the gluteus medius muscle. Mild degree of inflammatory changes. No focal abscess is seen. Normal visualized small intestine. Normal visualized colon. There is no pelvic fluid. There is no pelvic mass lesion or lymphadenopathy. There is diffuse atherosclerotic calcification of the pelvic arteries. There is evidence of a moderate-sized Spigalean hernia. Normal osseous structures. CT/Pelvis without IV Contrast IMPRESSION: Ulcerating lesion in the lateral posterior aspect of the right buttock with increased markings in the subcutaneous fat. This abuts the underlying gluteus muscle. Right sided Spigalean hernia. Electronically Signed: Gray Gutierrez MD at 15:06 EDT , Service support ,
[2020-08-11 10:17] VITALS: BP 112/54; PULSE 76; RESP 16; TEMP 36.7
--- NOTE | 2020-08-11 12:28 | PN.PCM_ITS ---
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 History of Wound: [facility] for an initial evaluation of right lower extremity ulcers of the foot, ankle, lateral leg and hip. He has a past medical history significant for type 2 diabetes mellitus, hypertension, hyperlipidemia, anemia, tobacco use and alcoholism. At that time he reported having been sober for about 4 months. He no longer takes Metformin, and states this was discontinued due to causing renal insufficiency. He states his diabetes is currently managed with diet and exercise, though he has been not unable to exercise in recent months. In December 2019, he suffered a fall and a 5 day long-lie, during which time he developed these ulcers. He states he had a stroke and reports subsequent impaired movement and sensation of his right lower extremity from the mid lower leg to his toes. He was admitted to a [facility] following hospitalization, and was receiving wound debridement approximately every 2 weeks. He was later discharged home. He is receiving home health care from [facility]. He reports he is able to ambulate with the use of a walker, and also uses a wheelchair at times. Wound cultures in March, showed MRSA. He was treated with Bactrim and Clindamycin. Wound culture on 05/02/20 showed Stenotrophomonas maltophilia. He was treated with Levaquin (poorly tolerated), then switched to Bactrim. Wound culture on 06/16/20 showed Streptococcus agalactiae. He was treated with IV Unasyn and a course of Cefdinir. Right hip x-ray on 06/23/20 did not show evidence of osteomyelitis. Pelvic CT on 07/31/2020 did not show evidence of osteomyelitis. Ulcerating lesion in the lateral posterior aspect of the right buttock with increased markings in the subcutaneous fat. This abuts the underlying gluteus muscle. Right lateral leg ulcer is healed. Right hip ulcer was evaluated by Dr. Fenton and patient is scheduled for surgical debridement on 09/14/2020. The patient reports closure and absence of drainage from the hip ulcer for the past week. He has been using Aquacel to the right ankle ulcer. Progress of Wound: The patient reports closure and absence of drainage from the hip ulcer for the past week. He has been using Aquacel to the right ankle ulcer. He has not been elevated feet when seated in his wheelchair. He has not been using compression for the past 2 weeks. The patient denies fever, chills, increased redness, swelling, or purulent/malodorous drainage from affected area. Objective Data Objective Data Vital Signs: Vital Signs Temp Pulse Resp BP 98.0 F 76 16 112/54 L 08/11/20 10:17 08/11/20 10:17 08/11/20 10:17 08/11/20 10:17 Weight: 140 lb Body Mass Index (BMI) 22.6 Charges/Coding Procedures Integumentary 111xxx-113xx: [id number] Berna subq tissue 20 sq cm/< Physical Exam Const alert and no apparent distress General Appearance: cooperative, well kempt and frail HEENT Head and Scalp: normocephalic and atraumatic Neck supple Resp normal respiratory effort Extremity normal capillary refill, no joint enlargement and no calf tenderness General Extremity: edema right lower extremity moderate; Negative for clubbing or cyanosis Peripheral Pulses: Yes dorsalis pedis pulses present right 2+ Skin Wounds: wounds noted No malodorous Wound Narrative: Stage IV right hip ulcer is closed today, though remains very tender to palpation. Right ankle ulcer with subcutaneous layer exposed. Some good granulation tissue is present. No periulcer warmth or erythema present. Neuro Sensorium / Orientation: awake and alert Psych mental status grossly normal, cooperative and affect normal Appearance: grossly normal Debridement Note Debridement Note Post-Debridement Measurements and Additional Note: Post-Debridement Measurements/Treatment - Nurse 1 - General Ulcer Assessment Start: 07/24/20 10:23 Freq: Status: Active Protocol: NADIA Activity Type Activity Date Activity User E-Sign Co-Sign Detail Recorded Client Recorded Date Recorded By Document 07/24/20 10:24 HARDIK [id number] 07/24/20 10:29 KR Document 08/11/20 10:17 VIELKA [id number] 08/11/20 10:24 VIELKA 07/24/20 08/11/20 10:24 10:17 - Today's Visit Information Type of service Follow-up Visit Follow-up Visit (Physician/[facility] (Physician/[facility] ) ) Arrival Mode Wheelchair Wheelchair Patient Identification Verified (Name & Yes Yes ) Patient Requires Transmission-Based No Precautions Weight 140 lb Weight in Pounds 140.0 lbs Weight Measurement Method Estimated by Patient Height and Weight Body Mass Index (BMI) 22.6 BMI Classification Normal Vital Signs Temperature (97.8 F-99.1 F) 97.1 F L 98.0 F Temperature Source Temporal Temporal Pulse Rate (60-100) 81 76 Pulse Location Monitor Monitor Respiratory Rate (12-18) 16 Respiratory rate source Observation Blood Pressure (90/60-120/80) 139/56 H 112/54 L Blood Pressure Mean (mm Hg) 83 73 Source Monitor Monitor Position Sitting Sitting Blood Pressure Location Left Arm Left Arm History Since Last Visit- (Skip if this is Patient's initial visit) Have you changed medications since your No No last visit? Any new allergies or adverse reactions No No Had a fall/change in ADL's that may No No increase risk of falls Signs or symptoms of abuse and/or No No neglect since last visit Have you been in the hospital since your No No last visit? Has dressing in place as prescribed Yes Yes Has compression in place as prescribed N/A N/A Has offloadiing in place as prescribed N/A N/A Experienced any changes in pain level or No No management Left Footwear Slipper Regular Shoe Right Footwear Regular Shoe Regular Shoe Pain Scale: 0-10 Numeric Is Patient Pain Free? Yes Yes WC - Nurse 1 - General Ulcer Measurement Start: 07/24/20 10:23 Freq: Status: Active Protocol: Activity Type Activity Date Activity User E-Sign Co-Sign Detail Recorded Client Recorded Date Recorded By Document 07/24/20 10:24 HARDIK [id number] 07/24/20 10:29 HARDIK Document 08/11/20 10:24 VIELKA [id number] 08/11/20 10:28 07/24/20 08/11/20 10:24 10:24 Wound Center Nurse 1 #2 R Hip -Combined with other wound No -Current Size (cm) - Length 0.5 0.1 -Current Size (cm) - Width 0.8 0.1 -Current Size (cm) - Depth 1 0.1 -Total Square Cm 0.40 0.01 -Photo Taken No -Epithelialization None Present -Tunneling No -Tunneling Position (O'clock) 2 -Tunneling Distance (cm) 2.1 -Undermining/Tunneling No -Circular Undermining No -Exudate Amt Small None Present -Exudate Type Serosanguineous -Wound Margin Distinct, Indistinct, Non Outline -Visible Attached -Granulation Amt Medium (34-66%) None Present (0 %) -Granulation Quality Red -Slough/Fibrin Yes -Necrosis Amt Medium (34-66%) Large (67-100%) -Necrotic Tissue Type Adherent Slough Adherent Slough -Structure Exposed N/A -Texture (Cammie-wound Skin Appearance) Assessed, Assessed Scarring -Moisture (Cammie-wound Skin Appearance) No Abnormality, Assessed,Dry/ Assessed Scaly -Color (Cammie-wound Skin Appearance) No Abnormality, Assessed Assessed -Temperature (Cammie-wound Skin No Abnormality No Abnormality Appearance) (Pt Warm) (Pt Warm) -Tenderness on Palpation (Cammie-wound No No Skin Appearance) -Ulcer Cleansing Rinsed/ Rinsed/ Irrigated with Irrigated with Saline Saline -Foul Odor after Cleansing No No -Anesthetic Used 4% Lidocaine 5% Lidocaine Solution Gel #1 R ankle -Combined with other wound No -Current Size (cm) - Length 0.9 1.0 -Current Size (cm) - Width 1.2 1.4 -Current Size (cm) - Depth 4 0.2 -Total Square Cm 1.08 1.40 -Photo Taken No -Epithelialization Small 1-33% -Tunneling No -Undermining/Tunneling No -Circular Undermining No -Exudate Amt Small Small -Exudate Type Serosanguineous Serosanguineous -Wound Margin Distinct, Flat & Intact Outline Attached -Granulation Amt Medium (34-66%) Medium (34-66%) -Granulation Quality Red Red -Slough/Fibrin Yes -Necrosis Amt Medium (34-66%) Small (1-33%) -Necrotic Tissue Type Adherent Slough Adherent Slough -Structure Exposed N/A -Texture (Cammie-wound Skin Appearance) Assessed, Assessed, Scarring Localized Edema -Moisture (Cammie-wound Skin Appearance) No Abnormality, Assessed,Dry/ Assessed Scaly -Color (Cammie-wound Skin Appearance) No Abnormality, Assessed Assessed -Temperature (Cammie-wound Skin No Abnormality No Abnormality Appearance) (Pt Warm) (Pt Warm) -Tenderness on Palpation (Cammie-wound No No Skin Appearance) -Ulcer Cleansing Rinsed/ Rinsed/ Irrigated with Irrigated with Saline Saline -Foul Odor after Cleansing No No -Anesthetic Used 4% Lidocaine 5% Lidocaine Solution Gel Right Calf (cm) 36.6 Right Ankle (cm) 25.4 WC - Nurse 2 - General Ulcer CM Notes Start: 07/24/20 10:23 Freq: Status: Active Protocol: Activity Type Activity Date Activity User E-Sign Co-Sign Detail Recorded Client Recorded Date Recorded By Document 07/24/20 10:40 VIELKA [id number] 07/24/20 10:42 JF Edit Result 07/24/20 10:40 JF (1) [id number] 07/24/20 10:56 JF Edit Result 07/24/20 10:40 JF (2) [id number] 07/26/20 16:09 PL (1) #1 R ankle - Time => 10:55 - Correct Patient No => - Correct Side, Site, Position No => Yes - Correct Procedure No => Yes - Procedure Performed No => Yes - Type of Procedure => Debridement - Clinical Debridement => Subcutaneous - Tissue Removed => Subcutaneous - Post Debridement (cm) - Length => 1 - Post Debridement (cm) - Width => 1.2 - Post Debridement (cm) - Depth => 0.3 - Total Square (Post) (cm) => 1.2 - Area of Debridement (cm) - Length => 1 - Area of Debridement (cm) - Width => 1.2 - Total Square (Area) (cm) => 1.2 - Tunneling => No - Undermining/Tunneling => No - Ulcer Cleansing => Rinsed/Irrigated => with Saline - Foul Odor after Cleansing => No - Bioengineered Tissue => No - Type of Offloading => Total Contact Cast => (TCC) - Left ($) - Debridement - Subq, 1st 20sq cm => Yes (2) #1 R ankle - Type of Offloading Total Contact Cast => (TCC) - Left ($) => 07/24/20 10:40 Wound Center Nurse 2 #4 Right Lat Foot -Correct Patient No -Correct Side, Site, Position No -Correct Procedure No -Procedure Performed No -Wound/Ulcer Outcome Not Healed #2 R Hip -Correct Patient No -Correct Side, Site, Position No -Correct Procedure No -Procedure Performed No -Wound/Ulcer Outcome Not Healed #1 R ankle -Time 10:55 -Correct Side, Site, Position Yes -Correct Procedure Yes -Procedure Performed Yes -Type of Procedure Debridement -Clinical Debridement Subcutaneous -Tissue Removed Subcutaneous -Post Debridement (cm) - Length 1 -Post Debridement (cm) - Width 1.2 -Post Debridement (cm) - Depth 0.3 -Total Square (Post) (cm) 1.2 -Area of Debridement (cm) - Length 1 -Area of Debridement (cm) - Width 1.2 -Total Square (Area) (cm) 1.2 -Tunneling No -Undermining/Tunneling No -Wound/Ulcer Outcome Not Healed -Ulcer Cleansing Rinsed/ Irrigated with Saline -Foul Odor after Cleansing No -Bioengineered Tissue No -Debridement - Subq, 1st 20sq cm Yes Pain Scale: 0-10 Numeric Is Patient Pain Free? Yes - Nurse 3 - General Ulcer D/C NN Start: 07/24/20 10:23 Freq: Status: Active Protocol: Activity Type Activity Date Activity User E-Sign Co-Sign Detail Recorded Client Recorded Date Recorded By Document 07/24/20 11:05 [facility] [id number] 07/24/20 11:06 [facility] 07/24/20 11:05 Wound Care Nurse 3 #2 R Hip -Ulcer Cleansing Rinsed/ Irrigated with Saline -Foul Odor after Cleansing No -Primary Dressing Applied Aquacel AG 4x4 -Primary Dressing Covered/Secured with Dry Gauze, Secured with Tape -Other Covering drsg per kr mechanical detailer -Aquacel AG 4x4 1 #1 R ankle -Ulcer Cleansing Rinsed/ Irrigated with Saline -Foul Odor after Cleansing No -Primary Dressing Applied Aquacel AG 4x4 -Other Dressing drsg per kr mechanical detailer -Primary Dressing Covered/Secured with Dry Gauze, Secured with Tape -Aquacel AG 4x4 1 Treatment Response Procedure Tolerated Well Pain Scale: 0-10 Numeric Is Patient Pain Free? Yes WC - Visit Discharge Discharge Condition Stable Ambulatory Status Wheelchair Transportation Private Auto Accompanied by family/friend Facility Type Home Health Wound debrided: Right ankle ulcer Laterality: Right Wound Grade/Stage: Mendez 1 Type of Debridement: Excisional debridement Anesthesia Used: 5% Lidocaine Gel and Cetacaine Depth: in the subcutaneous layer Percentage of wound debrided: 100 Instrument Used: 5mm curette Tissue Removed: Slough and devitalized tissue Severity: Fat Layer Exposed Amount of bleeding with debridement: Mild Bleeding Controlled with: Pressure Patient tolerated procedure: Patient tolerated procedure well Assessment/Plan Assessment/Plan (1) Diabetic ulcer of right ankle: CODE(S): E11.622 - Type 2 diabetes mellitus with other skin ulcer; L97.319 - Non-pressure chronic ulcer of right ankle with unspecified severity (2) Diabetic ulcer of right lower leg: CODE(S): E11.622 - Type 2 diabetes mellitus with other skin ulcer; L97.919 - Non-pressure chronic ulcer of unspecified part of right lower leg with unspecified severity (3) Decubitus ulcer of right hip, stage 4: CODE(S): L89.214 - Pressure ulcer of right hip, stage 4 (4) Diabetes mellitus type 2 in nonobese: CODE(S): E11.9 - Type 2 diabetes mellitus without complications (5) Hypertension: CODE(S): I10 - Essential (primary) hypertension QUALIFIERS: Hypertension type: essential hypertension Qualified Code(s): I10 - Essential (primary) hypertension (6) Hyperlipidemia: CODE(S): E78.5 - Hyperlipidemia, unspecified QUALIFIERS: Hyperlipidemia type: unspecified Qualified Code(s): E78.5 - Hyperlipidemia, unspecified (7) Alcoholism: CODE(S): F10.20 - Alcohol dependence, uncomplicated (8) Bipolar disorder: CODE(S): F31.9 - Bipolar disorder, unspecified QUALIFIERS: Active/Remission status: remission status unspecified Qualified Code(s): F31.9 - Bipolar disorder, unspecified PLAN: Debridement of right ankle ulcer performed today in clinic. Aquacel applied At home wound-care instructions: Perform Aquacel dressing changes to the right ankle every other day. Wear medium compression single-layer Tubigrip's daily. The right hip ulcer is closed today. Cover with gauze to observe for reopening. Plan for surgical debridement of right hip ulcer with Dr. Fenton as scheduled on 09/14/2020. Off-loading: Avoid pressure at ulcer sites. Avoid prolonged standing or dangling of the legs. When seated, keep feet elevated at chest level. A Roho cushion was ordered for the patient to use when utilizing his wheelchair. He was instructed on appropriate offloading when seated/lying down. Frequent position changes were encouraged. Diet: Patient encouraged to increase protein and vitamin C intake while taking caution to avoid high carbohydrate and/or sugar intake. Labs/cultures/imaging: CT results reviewed with patient. No evidence of osteomyelitis noted. Follow-up: Return to clinic in 2 weeks for re-evaluation with Noah Chacon NP?C. Return sooner or report to the emergency room should symptoms worsen, or new symptoms arise. Note: [employer] speech recognition [employer] certified concierge software was used to create portions of this document. Sound-alike and misspelled words, as well as other [employer] certified concierge errors may be contained in the documentation.
== END 2020-08-16 23:59 ==
LOC: WC 10:15
PROVIDERS: PCP Student in an Organized Health Care Education/Training Program; Referring Provider Family Medicine; Visit Provider Nurse Practitioner Family
DX: E11.622 Type 2 diabetes mellitus with other skin ulcer (principal); L89.214 Pressure ulcer of right hip, stage 4; L97.312 Non-pressure chronic ulcer of right ankle with fat layer exposed; Z86.14 Personal history of Methicillin resistant Staphylococcus aureus infection; E78.5 Hyperlipidemia, unspecified; I10 Essential (primary) hypertension; G25.0 Essential tremor; F10.20 Alcohol dependence, uncomplicated; Z79.82 Long term (current) use of aspirin; F17.200 Nicotine dependence, unspecified, uncomplicated
CPT/HCPCS: 11042; 29445; 72192; 99213; G0463

== ENCOUNTER 2020-08-24 10:15 | Outpatient (RCR) | payer MEDICARE, SELFPAY ==
[2020-07-24 10:24] VITALS: BMI 22.6
[2020-08-17 00:22] VITALS: BP 112/54; PULSE 76; RESP 16; TEMP 36.7
[2020-08-24 10:21] VITALS: BP 140/57; PULSE 75; RESP 18; TEMP 36.8; BMI 22.6
--- NOTE | 2020-08-24 10:39 | PCM.WC.PN ---
History of Present Illness Date of Service: 08/24/20 Chief Complaint: Right trochanteric pressure sore, Stage IV and nonhealing diabetic ulcer right lateral ankle. History of Wound: [facility] for an initial evaluation of right lower extremity ulcers of the foot, ankle, lateral leg and hip. He has a past medical history significant for type 2 diabetes mellitus, hypertension, hyperlipidemia, anemia, tobacco use and alcoholism. At that time he reported having been sober for about 4 months. He no longer takes Metformin, and states this was discontinued due to causing renal insufficiency. He states his diabetes is currently managed with diet and exercise, though he has been not unable to exercise in recent months. In December 2019, he suffered a fall and a 5 day long-lie, during which time he developed these ulcers. He states he had a stroke and reports subsequent impaired movement and sensation of his right lower extremity from the mid lower leg to his toes. He was admitted to a residential following hospitalization, and was receiving wound debridement approximately every 2 weeks. He was later discharged home. He is receiving home health care from [facility]. He reports he is able to ambulate with the use of a walker, and also uses a wheelchair at times. Wound cultures in March, showed MRSA. He was treated with Bactrim and Clindamycin. Wound culture on 05/02/20 showed Stenotrophomonas maltophilia. He was treated with Levaquin (poorly tolerated), then switched to Bactrim. Wound culture on 06/16/20 showed Streptococcus agalactiae. He was treated with IV Unasyn and a course of Cefdinir. Right hip x-ray on 06/23/20 did not show evidence of osteomyelitis. Pelvic CT on 07/31/2020 did not show evidence of osteomyelitis. Ulcerating lesion in the lateral posterior aspect of the right buttock with increased markings in the subcutaneous fat. This abuts the underlying gluteus muscle. Right lateral leg ulcer is healed. Right hip ulcer was evaluated by Dr. Fenton and patient is scheduled for surgical debridement on 09/14/2020. The patient reports closure and absence of drainage from the hip ulcer for the past week. He has been using Aquacel to the right ankle ulcer. Progress of Wound: Patient scheduled for surgical debridement on 09/14/[address] Slaby, with regard to the right hip ulcer it is still closed over without any drainage, he continues with home school coordinator to the right ankle ulcer. Denies any new concerns. Objective Data Objective Data Vital Signs: Vital Signs Temp Pulse Resp BP 98.2 F 75 18 140/57 H 08/24/20 10:21 08/24/20 10:21 08/24/20 10:21 08/24/20 10:21 Weight: 140 lb Body Mass Index (BMI) 22.6 Charges/Coding Procedures Integumentary 111xxx-113xx: 35290 Berna subq tissue 20 sq cm/< Physical Exam Const alert and no apparent distress General Appearance: cooperative, well kempt and frail HEENT Head and Scalp: normocephalic and atraumatic Neck supple Resp normal respiratory effort Extremity normal capillary refill, no joint enlargement and no calf tenderness General Extremity: edema right lower extremity moderate; Negative for clubbing or cyanosis Peripheral Pulses: Yes dorsalis pedis pulses present right 2+ Skin Wounds: wounds noted No malodorous Wound Narrative: Stage IV right hip ulcer is closed today, though remains very tender to palpation. Right ankle ulcer with subcutaneous layer exposed. Some good granulation tissue is present. No periulcer warmth or erythema present. Neuro Sensorium / Orientation: awake and alert Psych mental status grossly normal, cooperative and affect normal Appearance: grossly normal Debridement Note Debridement Note Post-Debridement Measurements and Additional Note: Post-Debridement Measurements/Treatment - Nurse 1 - General Ulcer Assessment Start: 08/24/20 10:21 Freq: Status: Active Protocol: DELVIS.FRANCISCA Activity Type Activity Date Activity User E-Sign Co-Sign Detail Recorded Client Recorded Date Recorded By Document 08/24/20 10:21 HEATHER [id number] 08/24/20 10:26 HEATHER 08/24/20 10:21 - Today's Visit Information Type of service Follow-up Visit (Physician/VOCATIONAL TRAINING DIRECTOR ) Arrival Mode Wheelchair Transfer Assistance Manual Patient Identification Verified (Name & Yes ) Patient Requires Transmission-Based No Precautions Safety Precautions NA Height and Weight Body Mass Index (BMI) 22.6 BMI Classification Normal Vital Signs Temperature (97.8 F-99.1 F) 98.2 F Temperature Source Temporal Pulse Rate (60-100) 75 Respiratory Rate (12-18) 18 Blood Pressure (90/60-120/80) 140/57 H Blood Pressure Mean (mm Hg) 84 History Since Last Visit- (Skip if this is Patient's initial visit) Have you changed medications since your No last visit? Any new allergies or adverse reactions No Had a fall/change in ADL's that may No increase risk of falls Signs or symptoms of abuse and/or No neglect since last visit Have you been in the hospital since your No last visit? Has dressing in place as prescribed Yes Has compression in place as prescribed Yes Has offloadiing in place as prescribed N/A Experienced any changes in pain level or No management Pain Scale: 0-10 Numeric Is Patient Pain Free? Yes WC - Nurse 1 - General Ulcer Measurement Start: 08/24/20 10:21 Freq: Status: Active Protocol: Activity Type Activity Date Activity User E-Sign Co-Sign Detail Recorded Client Recorded Date Recorded By Document 08/24/20 10:21 HEATHER [id number] 08/24/20 10:26 HEATHER 08/24/20 10:21 Wound Center Nurse 1 #1 R ankle -Current Size (cm) - Length 1.0 -Current Size (cm) - Width 1.2 -Current Size (cm) - Depth 0.3 -Total Square Cm 1.20 -Photo Taken No -Epithelialization None Present -Tunneling No -Undermining/Tunneling No -Circular Undermining No -Exudate Amt Medium -Exudate Type Serosanguineous -Granulation Amt Medium (34-66%) -Granulation Quality [place] -Slough/Fibrin Yes -Necrosis Amt Medium (34-66%) -Necrotic Tissue Type Adherent Slough -Texture (Cammie-wound Skin Appearance) No Abnormality -Moisture (Cammie-wound Skin Appearance) No Abnormality -Color (Cammie-wound Skin Appearance) No Abnormality -Temperature (Cammie-wound Skin No Abnormality Appearance) (Pt Warm) -Ulcer Cleansing Rinsed/ Irrigated with Saline -Foul Odor after Cleansing No -Anesthetic Used 5% Lidocaine Gel Additional Wound Wound debrided: Right ankle diabetic ulcer Laterality: Right Type of Debridement: Excisional debridement Anesthesia Used: 5% Lidocaine Gel Depth: Down to and including healthy tissue and in the subcutaneous layer Percentage of wound debrided: 100 Instrument Used: 3mm curette Tissue Removed: Slough and devitalized tissue Severity: Fat Layer Exposed Amount of bleeding with debridement: Mild Bleeding Controlled with: Pressure Patient tolerated procedure: Patient tolerated procedure well Assessment/Plan Assessment/Plan (1) Diabetic ulcer of right ankle: CODE(S): E11.622 - Type 2 diabetes mellitus with other skin ulcer; L97.319 - Non-pressure chronic ulcer of right ankle with unspecified severity (2) Diabetic ulcer of right lower leg: CODE(S): E11.622 - Type 2 diabetes mellitus with other skin ulcer; L97.919 - Non-pressure chronic ulcer of unspecified part of right lower leg with unspecified severity (3) Decubitus ulcer of right hip, stage 4: CODE(S): L89.214 - Pressure ulcer of right hip, stage 4 (4) Diabetes mellitus type 2 in nonobese: CODE(S): E11.9 - Type 2 diabetes mellitus without complications (5) Hypertension: CODE(S): I10 - Essential (primary) hypertension QUALIFIERS: Hypertension type: essential hypertension Qualified Code(s): I10 - Essential (primary) hypertension (6) Hyperlipidemia: CODE(S): E78.5 - Hyperlipidemia, unspecified QUALIFIERS: Hyperlipidemia type: unspecified Qualified Code(s): E78.5 - Hyperlipidemia, unspecified (7) Alcoholism: CODE(S): F10.20 - Alcohol dependence, uncomplicated (8) Bipolar disorder: CODE(S): F31.9 - Bipolar disorder, unspecified QUALIFIERS: Active/Remission status: remission status unspecified Qualified Code(s): F31.9 - Bipolar disorder, unspecified PLAN: Courtesy visit for Mary LEES -debridement of right ankle ulcer performed today in clinic. Aquacel applied At home wound-care instructions: Perform Aquacel dressing changes to the right ankle every other day. Wear medium compression single-layer Tubigrip's daily. The right hip ulcer is closed today. Cover with gauze to observe for reopening. Plan for surgical debridement of right hip ulcer with Dr. Fenton as scheduled on 09/14/2020. Off-loading: Avoid pressure at ulcer sites. Avoid prolonged standing or dangling of the legs. When seated, keep feet elevated at chest level. A Roho cushion was ordered for the patient to use when utilizing his wheelchair. He was instructed on appropriate offloading when seated/lying down. Frequent position changes were encouraged. Diet: Patient encouraged to increase protein and vitamin C intake while taking caution to avoid high carbohydrate and/or sugar intake. Labs/cultures/imaging: CT results reviewed with patient. No evidence of osteomyelitis noted. Follow-up: Return to clinic after surgical debridement with Dr. Fenton which is scheduled on 09/14/2020. Return sooner or report to the emergency room should symptoms worsen, or new symptoms arise. Note: Central [employer] speech recognition preparatory technician software was used to create portions of this document. Sound-alike and misspelled words, as well as other preparatory technician errors may be contained in the documentation.
== END 2020-09-16 23:59 ==
LOC: WC 10:15
PROVIDERS: PCP Student in an Organized Health Care Education/Training Program; Referring Provider Family Medicine; Visit Provider Nurse Practitioner Family
DX: E11.622 Type 2 diabetes mellitus with other skin ulcer (principal); L89.214 Pressure ulcer of right hip, stage 4; L97.312 Non-pressure chronic ulcer of right ankle with fat layer exposed; E78.5 Hyperlipidemia, unspecified; I10 Essential (primary) hypertension; F10.20 Alcohol dependence, uncomplicated; Z91.81 History of falling; Z86.14 Personal history of Methicillin resistant Staphylococcus aureus infection; Z86.19 Personal history of other infectious and parasitic diseases
CPT/HCPCS: 11042

== ENCOUNTER 2020-09-14 10:00 | Observation (INO) | payer MEDICARE, SELFPAY ==
[2020-07-24 10:24] VITALS: BMI 22.6
--- NOTE | 2020-09-08 14:01 | EKG12_ITS ---
Test Reason : PREOP Blood Pressure : / mmHG Vent. Rate : 074 BPM Atrial Rate : 074 BPM P-R Int : 134 ms QRS Dur : 092 ms QT Int : 394 ms P-R-T Axes : 052 055 073 degrees QTc Int : 437 ms Normal sinus rhythm Normal ECG Confirmed by LAITH EAGLE, MARIUM ([id number]), supervising editor news reel DUANE MINOR ([id number]) on 09/11/2020 1:13:40 PM Referred By: Lorenzo Fenton Confirmed By:MARIUM OZUNA MD
[2020-09-08 15:28] LABS: Hematocrit 36.7 % (40-54); Hemoglobin 12.2 g/dL (13.0-16.5); Mean Corp Hgb Conc 33.2 g/dL (32-36); Mean Corpuscular Hgb 31.1 pg (27.0-32.0); Mean Corpuscular Volume 93.6 fL (80-94); Mean Platelet Vol. 11.3 fl (6.2-12.0); Platelet Count 225 K/mm3 (150-450); RBC Distribution Width CV 14.2 % (11.6-14.6); RBC Distribution Width SD 48.9 fl (35.1-43.9); Red Blood Count 3.92 M/mm3 (4.6-6.2); White Blood Count 12.6 K/mm3 (4.4-11.0)
[2020-09-08 16:08] LABS: Anion Gap 8 (5-15); BUN 16 mg/dL (7-18); Calcium,Total 9.1 mg/dL (8.5-10.1); Chloride 103 mmol/L (98-107); Creatinine, Serum 0.89 mg/dL (0.70-1.30); EST Glomerular Filtration Rate 89 mL/min (>60); Est Glom Filt Rate - Afr Amer 108 mL/min (>60); Glucose 117 mg/dL (74-106); Potassium 4.4 mmol/L (3.5-5.1); Sodium Level 135 mmol/L (136-145); Thyroid Stim Hormone (TSH) 2.68 uIU/mL (0.358-3.74)
--- NOTE | 2020-09-13 23:36 | HP.PCM_ITS ---
History and Physical Date of Admission: 09/14/20 HISTORY OF PRESENT ILLNESS 75 year old man with a history of diabetes mellitus presented to the [facility] with nonhealing ulcers right lower extremity as well as a right trochanteric pressure sore. The ulcers developed when he suffered a fall at home in December, and wasn't found for 5 days. He had a stroke and has residual impaired movement and sensation of his right lower extremity. He reports he is able to ambulate with the use of a walker, and also uses a wh eelchair. Wound cultures in March, showed MRSA. He was treated with Bactrim. Wound culture on 05/02/20 showed Stenotrophomonas maltophilia. He was treated with Levaquin. Wound culture on 06/16/20 showed Streptococcus agalactiae. He was treated with Cefdinir. Right hip x-ray on 06/23/20 did not show evidence of osteomyelitis. The ulcers are being treated with Silver dressing changes. Today he denies fever. His appetite is ok. Encourage nutritional supplementation with protein to help the healing process. I was asked to evaluate this patient for surgical options for treatment. PAST MEDICAL HISTORY Alcoholism Bipolar disorder Decubitus ulcer of right hip, stage 4 Diabetes mellitus type 2 in nonobese Diabetic ulcer of right ankle Diabetic ulcer of right foot Essential tremor History of MRSA infection Hyperlipidemia Hypertension Stroke MEDICATIONS Gralise 600 mg PO QHS 09/12/16 [History Last Taken Unknown] metoprolol succinate 100 mg PO DAILY 09/12/16 [History Last Taken Unknown] atorvastatin [Lipitor] 40 mg PO DAILY 09/13/16 [History Last Taken Unknown] bacitracin zinc 1 applic TOPICAL TID #1 tube 09/18/16 [Rx Last Taken Unknown] aspirin 81 mg PO DAILY 06/19/20 [History Last Taken Unknown] cefdinir 300 mg PO BID 10 Days #20 cap 06/19/20 [Rx Last Taken Unknown] levothyroxine [Synthroid] 25 mcg PO DAILY 06/19/20 [History Last Taken Unknown] lorazepam 1 mg PO Q8H PRN PRN 06/19/20 [History Last Taken Unknown] terazosin 5 mg PO DAILY 06/19/20 [History Last Taken Unknown] tramadol 50 mg PO Q12H PRN PRN 06/19/20 [History Last Taken Unknown] ALLERGIES None SOCIAL HISTORY household members: family Smoking Status: Current every day smoker FAMILY HISTORY Noncontributory REVIEW OF SYSTEMS Constitutional: Denies: Chills, Fever, Night Sweats Eyes: Denies: Conjunctivae Inflammation, Eyelid Inflammation, Redness HEENT: Reports: Difficulty Hearing, Hard of Hearing Cardiovascular: Denies: Chest Pain Respiratory: Reports: Cough Gastrointestinal: Reports: Nausea. Denies: Diarrhea, Vomiting Genitourinary: Denies: Dysuria, Hematuria Musculoskeletal: Reports: Leg Pain - On palpation/manipulation of ulcer. Denies: Foot Pain Skin: Reports: Wounds - Ulcers of right hip, right lateral leg, right ankle, and right foot Neurological: Reports: Tremor. Denies: Change in Speech, Confusion Psychiatric: Reports: - - Bipolar disorder Endocrine: Reports: - - Type II diabetes mellitus Hematologic/ Lymphatic: Reports: Anemia PHYSICAL EXAMINATION General: Alert, Cooperative, No apparent distress. HEENT: PERRL. EOMI. Oral: Moist Mucosa Neck: Supple, nontender. No cervical adenopathy. Lungs: Clear to auscultation. Cardiovascular: Regular rate, Regular Rhythm. Abdomen: Soft, nondistended. Extremities: No clubbing, No cyanosis, No edema. Radial pulses are palpable. Dorsalis pedis pulses are palpable. Has nonhealing diabetic ulcer right lateral ankle. Some granulation tissue seen. No exposed bone. On the right trochanteric area is a pressure sore that extends down to bone edu ng it a Stage IV. Some undermining present. No purulent drainage. Has weakness right lower extremity. Neuro: CN II - XII grossly intact. Psych: Normal mood and affect. ASSESSMENT (1) Decubitus ulcer of right hip, stage 4: CODE(S): L89.214 - Pressure ulcer of right hip, stage 4 (2) Diabetic ulcer of right ankle: CODE(S): E11.622 - Type 2 diabetes mellitus with other skin ulcer; L97.319 - Non-pressure chronic ulcer of right ankle with unspecified severity (3) Diabetes: CODE(S): E11.9 - Type 2 diabetes mellitus without complications (4) Stroke: CODE(S): I63.9 - Cerebral infarction, unspecified (5) History of MRSA infection: CODE(S): Z86.14 - Personal history of Methicillin resistant Staphylococcus aureus infection (6) Smoker: CODE(S): F17.200 - Nicotine dependence, unspecified, uncomplicated PLAN Continue Silver dressing changes daily to the right trochanteric pressure sore and right lateral ankle diabetic ulcer. His most recent wound culture on 06/16/20 showed Streptococcus agalactiae. He was treated with Cefdinir and has finished them. Wound Center notes reviewed. Labs and cultures reviewed. X-ray reviewed. The right trochanteric pressure is starting to heal inward. Palpation goes down to the bone. I suspect involvement of the underlying bone. Recommend excision of the right trochanteric pressure sore along with partial ostectomy for osteomyelitis. Postoperatively will apply the VAC. Will send tissue and bone to Pathology to evaluate for osteomyelitis and to Microbiology for culture. A positive culture will necessitate antibiotic therapy. Surgery will be done under general anesthesia with a surgical observation overnight stay in the hospital. Will need to order a CT Pelvis preop to evaluate for osteomyelitis. While in the hospital, I will check a HgbA1c and a Prealbumin. Anticipate increased metabolic demands and will encourage nutritional supplementation with protein to help the healing process. If the patient decides on eventual wound closure with a myocutaneous flap, the HgbA1c needs to be less than 8. After a flap, he will be on complete bedrest for 6 weeks. Followup Wound Center one week. I will see him in the Wound Center after his surgery. Patient was informed of the risks and complications of the procedure including alternatives to surgery. These were discussed with the patient personally. Patient voices understanding and wishes to proceed. Encouraged patient to stop smoking as it may have deleterious effects on wound healing. We discussed the current risks associated with COVID-19. While it is understood that there is a community spread of COVID-19, the risk of louise COVID-19 while at [facility] ([facility]) is very low; however, the risk cannot be completely mitigated because of the community spread of the disease. We discussed in detail the risk of exposure to and/or potential harm posed by the COVID-19 virus with having a surgery/procedure at this time versus the risk of delaying the surgery/procedure. It is not possible to know either the risk of delaying the surgery or procedure or chance of getting an infection with perfect accuracy, but a joint decision was made to proceed at this time with the scheduled surgery/procedure as indicated on the consent form. Patient was notified that we will need to comply with any screening or testing [facility] wishes to perform or that surgery may be delayed for any positive results.
[2020-09-14] VITALS (16 sets, daily range): BP systolic 106–155; BP diastolic 53–93; PULSE 77–99; RESP 16–18; TEMP 36.1–37; O2SAT 18–99; BMI 26.3
--- NOTE | 2020-09-14 | UL_PTH ---
PATIENT: JAGRUTI RAMIREZ LOC: MS3 U#:[id number] AGE/SX: 75/M ROOM: PA312 RE09/14/[address]: Dr. Lorenzo Fenton MD : 1945 BED: 1 DIS: 09/19/2020 SPEC #: [id number] RECD: 09/14/20 11:46 STATUS: SAAD REQ #: [id number] MYNOR: 09/14/20 00:[address]: Lorenzo Fenton DEPT: SURGICAL PATHOLOGY RECD BY: Loc Burger ENTERED: 09/14/20 11:47 SP TYPE: ULCER OTHR DR: Dr. Abelardo Adamson, DO Tissues: A - ULCER B - Bone of lower extremity, NOS Procedures: Decalcification bone/plaque Surgery Specimen Level III HEADER OPERATION: Excision trochanteric pressure sore, stage 4 PRE-OP DIAGNOSIS: Decubitus ulcer of right hip, stage 4 TISSUE SUBMITTED: A ? Soft tissue right hip, B ? Right hip bone MICROSCOPIC DIAGNOSIS A. Soft tissue right hip: Skin with underlying tissue with focal ulceration, extensive fibrosis and chronic inflammation. B. Right hip bone: Fragments of bone with predominantly chronic osteomyelitis, focal mild acute osteomyelitis and reactive changes. DEVIN:mikayla 09/20/2020 COMMENT Case has been reviewed in consultation with Dr. Tuttle who concurs with the above diagnosis. IDC:AM MICROSCOPIC DESCRIPTION Slides are reviewed. GROSS DESCRIPTION A - Received in fixative is one container labeled with the patient's name and designated soft tissue right hip. The specimen consists of a piece of skin with underlying tissue measuring 5 x 2.5 cm and up to 2.5 cm in thickness. The skin surface shows a focal area of ulceration. Sprigger sections are submitted in two cassettes. B - Received in fixative is one container labeled with the patient's name and designated right hip bone. The specimen consists of multiple fragments of bone that in aggregate measure 2 x 1.5 x 0.3 cm. The specimen is totally submitted in one cassette after decalcification. / DEVIN:mikayla 09/14/20 TC:3 CPT: 55600 x2, 67359
[2020-09-14] MEDS: Vancomycin IV 1,000 MG/200 ML BAG 200 MG IV (07:00)
[2020-09-14] MEDS: Lactated Ringers 1,000 ML 100 ML IV ×2 (07:20→10:05)
[2020-09-14 07:26] LABS: Bedside Glucose 145 mg/dL (70-110)
[2020-09-14] MEDS: Lidocaine 1% /Epi 1:100 (50ml) 50 ML VIAL (09:28)
--- NOTE | 2020-09-14 09:34 | PCM.OPRPT ---
Problems Associated Problem List Diagnoses (1) Decubitus ulcer of right hip, stage 4: (2) Diabetes: (3) Stroke: (4) History of MRSA infection: (5) Smoker: Report of Operation Date of Procedure: 09/14/20 Pre-Operative Diagnosis: 1. Right trochanteric pressure sore, Stage IV. 2. Diabetes. 3. Stroke. 4. History of MRSA infection: 5. Smoker. Post-Operative Diagnosis: Same. Surgery/Procedure Performed:: Excision right trochanteric pressure sore, Stage IV, with partial ostectomy for osteomyelitis. Description of Surgical Findings:: 75 year old man with a history of diabetes mellitus presented to the Wound Center with nonhealing ulcers right lower extremity as well as a right trochanteric pressure sore. The ulcers developed when he suffered a fall at home in December, and wasn't found for 5 days. He had a stroke and has residual impaired movement and sensation of his right lower extremity. He reports he is able to ambulate with the use of a walker, and also uses a wheelchair. Wound cultures in March, showed MRSA. He was treated with Bactrim. Wound culture on 05/02/20 showed Stenotrophomonas maltophilia. He was treated with Levaquin. Wound culture on 06/16/20 showed Streptococcus agalactiae. He was treated with Cefdinir. Right hip x-ray on 06/23/20 did not show evidence of osteomyelitis. The ulcers are being treated with Silver dressing changes. Today he denies fever. His appetite is ok. Encourage nutritional supplementation with protein to help the healing process. I was asked to evaluate this patient for surgical options for treatment. Patient was informed of the risks and complications of the procedure including alternatives to surgery. These were discussed with the patient personally. Patient voices understanding and wishes to proceed. Size of defect right trochanteric area - 7 x 5 x 3 cm. Surgeon: Lorenzo Fenton food counter attendant: None Type of Anesthesia: General Specimen's removed: 1. Right trochanteric pressure sore, soft tissue, to Pathology and Microbiology. 2. Right trochanteric pressure sore, bone, to Pathology and Microbiology. Drains: None. Estimated Blood Loss (mL): 50. Description of Procedure: Patient was taken to OR in supine position and was placed under general anesthesia. He was then placed in the lateral position. The right hip and lateral thigh areas were prepped and draped in the usual fashion. SCD's were placed for DVT prophylaxis. Perioperative antibiotics were given intravenously. Using xylocaine with epinephrine, the right trochanteric pressure sore was infiltrated. After waiting 5 minutes for the anesthetic to take effect, I made a circular incision around the scar tissue down into the subcutaneous tissue. A lot of fluid pockets were present and encased in scar tissue. This scar tissue extended into the muscle and down to the bone. Fat necrosis was also present. The scar tissue and fat necrosis and adherent muscle was excised to open up the exposed bone. There were irregularities in the bone. A partial ostectomy was done for osteomyelitis using rongeurs. Several bone pieces were obtained. A rasp was used to smooth out the bony edges. Half the soft tissue and half the bone was sent to Pathology for analysis to rule out carcinoma and to evaluate for osteomyelitis. Half the soft tissue and half the bone was sent to Microbiology for culture. A positive culture will necessitate antibiotic therapy. The wound was irrigated with saline. Hemostasis was obtained with electrocautery. The size of the defect after excision of the pressure sore with partial ostectomy was 7 x 5 x 3 cm or 35 cm2. The wound was dressed with Mepitel nonadherent dressing followed by Kerlix gauze and Betadine and dry Kerlix and covered by ABD pads compression dressing. Patient tolerated the procedure well and was sent to PACU in satisfactory condition. Patient will be sent upstairs for continued postop care. The VAC will be applied tomorrow. Grafts/Implants Used: None. Complications None. Admit VTE Documentation VTE Present on Admission: No VTE Mechan Device Prophylaxis: SCD's VTE Pharm Prophylaxis ordered?: Yes Addendum Addendum: Surgery Charges CPT - 82241 ICD-10 - L89.214, E11.9, I63.9, Z86.14, F17.200
[2020-09-14 10:20] LABS: Bedside Glucose 131 mg/dL (70-110)
--- OUTSIDE RECORDS SUMMARY | 2020-09-14 10:55 | XMS RPT_ITS ---
Patient Summarization (C-CDA 2.1 CCD) Created on:September 14, 2020 Patient:JAGRUTI RAMIREZ Sex:Male :1945 External Reference #:[id number] Author Organization Sample organization Care Team Providers Name Role Phone Claudia Buitrago Unavailable Unavailable Claudia Buitrago Unavailable Unavailable Claudia Buitrago Unavailable Unavailable Claudia Buitrago Unavailable Unavailable Unavailable Primary Care Provider Unavailable Encounters Encounter Date Encounter Type Care Provider Facility Start: 12-04-2019 Evaluation and Abdifatah Cordova SHB 2E TELEMET RY End: 12-09-2019 management of inpatient Work Phone: Comment on above: Alcohol-induced acute pancre atitis, unspecified complication status (Primary Dx); Alcohol withdrawal syndrome with complication (HCC); Elevated troponin; KEN (acute kidney injury) (H CC); Hyponatremia; Elevated brain natriuretic p eptide (BNP) level Start: 08-22-2017 Patient encounter Ana Laura Buitrago Facility:[facility] Immunizations Immunization Date Immunization Notes Care Provider Facility 12-08-2019 influenza, injectable, [place] quadrivalent, preservative free 12-06-2019 influenza quadrivalent [place] split vaccine (FLUZONE;FLUARIX;FLULAVAL; AFLURIA) injection 0.5 mL Medications Current Medications Medication Drug Dates Sig Sig (Original) Class(es) (Normalized) Acetaminophen Start: acetaminophen (TYLENOL) (1 source) 1018-20 tablet 650 mg 20 busPIRone hydrochloride 5 mg oral tablet Start: busPIRone (BUSPAR) (1 source) 10-20 tablet 5 mg 20 carboxymethylcellulose sodium 5 mg/ml ophthalmic solution Start: carboxymethylcellulose (1 source) 12-04-20 PF (REFRESH PLU S) 0.5 % 20 ophthalmic solu tion 2 drop doxazosin 4 mg oral tablet alpha-Adrener Start: doxazosin (CARDURA) (1 source) gic Jodi 12-05-19 tablet 4 mg 20 0.3 ml enoxaparin sodium 100 mg/ml prefilled syringe Low Molecul ar Start: inject 30 mg by 30 mg, Subcutaneous, (1 source) Weight 12-05-19 subcutaneous DAILY, First do se on Sun Heparin 20 injection once 12/05/19 at 0 900 daily 2 ml famotidine 10 mg/ml injection Histamine-2 Start: 20 mg, Intravenous, (1 source) Receptor 12-05-19 DAILY, First do se on Sun Antagonist 20 12/05/19 at 090 0 Administer over 2 minutes. gabapentin 300 mg oral capsule Anti-epilepti Start: gabapentin (NEURONTIN) (2 sources) c Agent 12-05-19 capsule 900 mg 20 gabapentin (NEURONTI N) 600 MG tablet Take 900 mg by mouth daily. 0 Active glucagon (rdna) 1 mg injection Antihypoglycemic Agent Start: 2019 glucagon (rDNA) (1 source) injection 1 mg 1000 ml glucose 500 mg/ml injection Start: 12-05-2019 glucose (GLUTOSE) 40 (3 sources) % oral gel 15 g Start: 12-05-2019 dextrose 50 % IV zeus ution Start: 12-05-2019 dextrose 5 % solutio n hydrOXYzine hydrochloride 25 mg oral tablet Antihistamine Star t: 12-07-2019 take 1 tablet hydrOXYzine (1 source) End: 12-17-2019 by mouth (ATARAX) 25 MG every eight tablet Take 1 hours as tablet by mouth needed for every 8 hours a s anxiety needed for Anxiety 30 tabl et 0 12/07/2019 12/17/2019 Acti ve insulin lispro 100 unt/ml injectable solution Insulin Analog Start: insulin lispro (2 sources) 12-05-2019 (HUMALOG) injection vial 0-3 Units 24 hr metoprolol succinate 50 mg extended release oral table t beta-Adrenergic Start: 12-07-2019 take 1 tablet metoprolol (3 sources) Jodi End: 01-06-2020 by mouth once succinate ( TOPROL daily XL) 50 MG extended releas e tablet Take 1 tablet by mouth daily 30 tablet 0 12/07/2019 01/06/2020 Acti ve METOPROLOL SUCCINATE PO Take by mouth 0 End: 12-07-2019 12/07/2019 Discontin ued (Stop Taking at Discharge) 24 hr nicotine 0.583 mg/hr transdermal system Cholinergic Start: 1 nicotine (NICODERM (1 source) Nicotinic Agonist CQ) 14 MG/ 24HR 1 patch 2 ml ondansetron 2 mg/ml injection Serotonin-3 Start: 12-04-2019 t meaghan 4 mg by 4 mg, Intravenous, (2 sources) Receptor End: 12-05-2019 mouth every EVERY 6 HOUR S PRN, Antagonist six hours as Nausea, Vomitin g, needed for Starting Sun nausea 12/05/19 at 052 7 Administer if o ral route cannot be used. polyethylene glycol 3350 63032 mg powder for oral solution O smotic Laxative Start: 12-05-2019 17 g, Oral, DAILY (1 source) PRN, Constipati on, Starting 12/05/19 at 052 7 First line ther apy for constipatio n 3 ml sodium chloride 9 mg/ml injection Start: 12-05-19 20 10 mL, (4 sources) Intravenous, EV ALLYN 12 HOURS SCHEDU LED (2 times per da y), First dose on S un 12/05/19 at 090 0 Start: 12-05-2019 take 10 mL intravenous route 10 mL, Intr avenous, PRN, Line once as needed Care, After every IV line use, Starting Sun at 0527 Start: 12-05-2019 0.9 % sodium chlorid e End: 12-07-2019 infusion Start: 12-04-2019 0.9 % sodium chlorid e bolus End: 12-05-2019 Completed/Discontinued Medications Medication Drug Class(es) Dates Sig (Normalized) Sig (Orig inal) aspirin 325 mg delayed release oral tablet Platelet Aggregat ion Start: 12-05-2019 aspirin EC tablet (1 source) Inhibitor, End: 12-05-2019 325 mg Nonsteroidal Anti-inflammatory Drug LORazepam 0.5 mg oral tablet Benzodiazepine Start: 12-07-2019 LORazepam (1 source) End: 12-07-2019 (ATIVAN) tab let 0.5 mg Start: 12-07-2019 LORazepam (ATIVAN) t ablet 0.5 mg End: 12-07-2019 Payers Date Payer Category Payer Private Health Insurance [id number] Self-pay [id number] Plan of Treatment Date Care Activity Detail Author Basic metabolic 2000 panel [facility] [place] [place] Routine Daily until discontinued starting 12/07/2019, 3 completed Comment on above: Daily until discontinued sta rting 12/07/2019, 3 completed CBC Auto Differential CBC Auto Differential Lab Routine Daily [place], [place] until discontinued starting 11/18, 3 completed Comment on above: Daily until discontinued sta rting 12/07/2019, 3 completed EKG 12 Lead EKG 12 Lead ECG STAT 12/08/2019 9:52 AM [place] EDT Hepatic Function Panel Hepatic Function Panel La b Routine [place] Daily until discontinued startin g 12/07/2019, 3 completed Comment on above: Daily until discontinued sta rting 12/07/2019, 3 completed Lipase Lipase Lab Routine Daily until d iscontinued starting [facility] [place] 12/07/2019, 3 completed Comment on above: Daily until discontinued sta rting 12/07/2019, 3 completed Oxygen therapy [Minimum Data Initiate Oxygen The rapy Protocol [place], [place] Set] Respiratory Care Routine Daily until discontinued starting 12/05/2019 Comment on above: Daily until discontinued sta rting 12/05/2019 POCT glucose [place], [place] Comment on above: 4X Daily (AC & HS) until dis continued starting 12/05/2019 As Needed until discontinued starting 12/05/2019 Urine Drug Screen Urine Drug Screen Lab [place] End: 12-05-2019 Add-On One Time for 1 Occurrences starting 12/05/2019 until 12/05/2019 Comment on above: One Time for 1 Occurrences s tarting 12/05/2019 until 12/05/2019 Problems Active Problems Problem Classification Problem Date Documented Date Ep isodic/Chronic Acute and unspecified renal failure Acute injury of (1 source) kidney; Translations: [KEN (acute kidney injury) (HCC)] Alcohol-related disorders Alcohol abuse; Onset: Chronic (2 sources) Translations: 08-22-2017 [Alcohol withdrawal syndrome] Unclassified Unknown / Onset: (1 source) UNK(Unknown) 08-22-2017 Unclassified Protein level - (1 source) finding; Translations: [Elevated troponin] Past or Other Problems Problem Classification Problem Date Documented Date Ep isodic/Chronic Fluid and electrolyte disorders Hyponatremia; Episodic (1 source) Translations: [Hyponatremia] Other endocrine disorders Hormone level - Episodic (1 source) finding; Translations: [Elevated brain natriuretic peptide (BNP) level] Other screening for suspected conditions (not mental disorders or infectious disease) Liver function Onset: 12-05-2019 Episodic (2 sources) tests abnormal; 12-05-2019 Translations: [Elevated LFTs] Pancreatic disorders (not diabetes) Alcohol-induced Onset: Episodic (3 sources) acute pancreatitis; 12-05-2019 Translations: [Pancreatitis] Procedures Date Procedure Procedure Detail Performing Clin ician Start: 01-31-2020 Echocardiography Start: 12-09-2019 Gluc bld gluc mntr jacob Nuno cleared fda spec home use Work P althea: Start: 12-09-2019 Gluc bld gluc mntr jacob Nuno cleared fda spec home use Work P althea: Start: 12-09-2019 Assay of lipase Ray Ulrich Work Phone: Start: 12-09-2019 Basic metabolic panel calcium Ray Ulrich total Work Phone: Start: 12-09-2019 Blood count complete Ray daugherty auto&auto difrntl wbc Work Phone : Start: 12-09-2019 Hepatic function panel Ray Ulrich Work Phone: Start: 12-08-2019 Gluc bld gluc mntr jacob Nuno cleared fda spec home use Work P althea: Start: 12-08-2019 Gluc bld gluc mntr dev Abdifatah Churchash cleared fda spec home use Work P althea: Start: 12-08-2019 Echo tthrc r-t 2d w/wom-mode G eorge Tima compl spec&colr d Work Phone: Start: 12-08-2019 COVID-19 Ray Ulrich Work Phone: Start: 12-08-2019 Gluc bld gluc mntr dev Abdifatah Christos Cordova cleared fda spec home use Work P althea: Start: 12-08-2019 Gluc bld gluc mntr dev Tom Nuno cleared fda spec home use Work P althea: Start: 12-08-2019 Assay of lipase Ray Ulrich Work Phone: Start: 12-08-2019 Basic metabolic panel calcium Ray Ulrich total Work Phone: Start: 12-08-2019 Blood count complete Ray Boogie dat auto&auto difrntl wbc Work Phone : Start: 12-08-2019 Hepatic function panel Ray Ulrich Work Phone: Start: 12-07-2019 Gluc bld gluc mntr dev Tom Nuno cleared fda spec home use Work P althea: Start: 12-07-2019 Gluc bld gluc mntr dev Tom Nuno End: 12-07-2019 cleared fda spec home use Work P althea: Start: 12-07-2019 Gluc bld gluc mntr dev Tom Nuno End: 12-07-2019 cleared fda spec home use Work P althea: Start: 12-07-2019 Gluc bld gluc mntr dev Tom Nuno cleared fda spec home use Work P althea: Start: 12-07-2019 Gluc bld gluc mntr dev Tom Nuno cleared fda spec home use Work P althea: Start: 12-07-2019 Assay of lipase Ray Ulrich Work Phone: Start: 12-07-2019 Basic metabolic panel calcium Ray Ulrich total Work Phone: Start: 12-07-2019 Blood count complete Ray Boogie dat auto&auto difrntl wbc Work Phone : Start: 12-07-2019 Hepatic function panel Ray Ulrich Work Phone: Start: 12-06-2019 Gluc bld gluc mntr dev Tom Nuno cleared fda spec home use Work P althea: Start: 12-06-2019 Gluc bld gluc mntr dev Tom Nuno cleared fda spec home use Work P althea: Start: 12-06-2019 Gluc bld gluc mntr dev Tom Nuno cleared fda spec home use Work P althea: Start: 12-06-2019 Gluc bld gluc mntr dev Tom Nuno cleared fda spec home use Work P althea: Start: 12-06-2019 Assay of lipase Tom Nuno Work Phone: Start: 12-06-2019 Assay of troponin Tom ross quantitative Work Phone: Start: 12-06-2019 Blood count complete Tom Nuno auto&auto difrntl wbc Work Phone : Start: 12-06-2019 Blood count complete Tom Nnuo automated Work Phone: Start: 12-06-2019 Gluc bld gluc mntr dev Tom Nuno cleared fda spec home use Work P althea: Start: 12-05-2019 Gluc bld gluc mntr dev Tom Nuno cleared fda spec home use Work P althea: Start: 12-05-2019 Gluc bld gluc mntr dev Tom Nuno cleared fda spec home use Work P althea: Start: 12-05-2019 Gluc bld gluc mntr dev Abdifatah A Gombash cleared fda spec home use Work P althea: Start: 12-05-2019 Drug screen class list a Abdifatah A Gombash Work Phone: Start: 12-05-2019 Urnls dip stick/tablet rgnt Ty ler A Gombash auto w/o microscopy Work Phone: Start: 12-05-2019 Assay of lipase Tom Nuno Work Phone: Start: 12-05-2019 Assay of troponin Tom ross quantitative Work Phone: Start: 12-05-2019 Blood count complete Tom Nuno auto&auto difrntl wbc Work Phone : Start: 12-05-2019 Lipid panel Tom Nuno Work Phone: Start: 12-05-2019 Procalcitonin (pct) Tom hydecody Work Phone: Start: 12-05-2019 Hemoglobin glycosylated a1c Da dino Nuno Work Phone: Start: 12-05-2019 Ct abdomen & pelvis w/o Abdifatah A Gombash contrast material Work Phone: Start: 12-05-2019 Ecg routine ecg w/least 12 Tyl er A Gombash lds w/i&r Work Phone: [phone] Start: 12-05-2019 Assay of lactate Abdifatah A Gomba sh Work Phone: Start: 12-05-2019 Assay of lipase Abdifatah A Gombas h Work Phone: Start: 12-05-2019 Assay of troponin Abdifatah A Gomb navi quantitative Work Phone: Start: 12-05-2019 Blood count complete Abdifatah A G ombash auto&auto difrntl wbc Work Phone : Start: 12-05-2019 Comprehensive metabolic panel Abdifatah A Gombash Work Phone: Start: 12-05-2019 Natriuretic peptide Abdifatah A Go mbash Work Phone: Start: 12-05-2019 Prothrombin time Abdifatah A Gomba sh Work Phone: Start: 12-04-2019 Radiologic exam chest single T yler A Gombash view Work Phone: Results Test Name Value Interpretation Reference Range Facility CRP on 03-05-2020 C-Reactive Protein 3.8 mg/dL High 0.0-0.9 [facility] ([place]) Comment on above: Performed By: #### VIRGILIO, OSMO U #### [address] [address] #### UA #### [address] [address] CRP on 03-04-2020 C-Reactive Protein 9.6 mg/dL High 0.0-0.9 [facility] ([place]) Comment on above: Performed By: #### VIRGILIO, OSMO U #### [address] [address] #### UA #### [address] [address] COVD19 on 03-03-2020 Date of Onset [id number] Invalid Interpretation Code [facility] ([place]) Comment on above: Performed By: #### VIRGILIO, OSMO U #### [place] [address] #### UA #### [address] [address] Employed in Healthcare No [facility] ([place]) Comment on above: Performed By: #### VIRGILIO, OSMO U #### [address] [address] #### UA #### [address] [address] First Test Unknown [facility] ([place]) Comment on above: Performed By: #### VIRGILIO, OSMO U #### [address] [address] #### UA #### [address] [address] Hospitalized Yes [facility] ([place]) Comment on above: Performed By: #### VIRGILIO, OSMO U #### [address] [address] #### UA #### [address] [address] ICU No [facility] ([place]) Comment on above: Performed By: #### KUR, OSMO U #### [facility] [address] [place] [address] #### UA #### [facility] [address] [place], [place] [address] Not [facility] ([place]) Comment on above: Performed By: #### VIRGILIO OSMO U #### [facility] [address] [place] [address] #### UA #### [facility] [address] [place], [place] [address] Resides in Congregate Care Setting No [facility] ([place]) Comment on above: Performed By: #### VIRGILIO OSMO U #### [facility] [address] [place] [address] #### UA #### [place] [address] [place], [place] [address] SARS-CoV-2 (COVID-19) RNA Positive Abnormal Negative [facility] LIVE+probe Ql (Unsp spec) ([place] ) Comment on above: Performed By: #### VIRGILIO OSMO U #### [address] [address] #### UA #### [address] [address] SARS-CoV-2 (COVID-19) RNA LIVE+probe Ql [facility] ([place]) (Unsp spec) Comment on above: Result Comment: Positive res ults are indicative of the presence of SARS-CoV-2 RNA; clinical correlation with patient history and other diagnostic information is necessary to determine patient infection status. Positive results do not rule out bacterial infection or co-infection with other viruses. The agent detected may not be the definite cause of disease. Laboratories within the [facility] and [facility] territories are required t o report all positive results to the appropriate public health authorities. Detection of analyte target( s) does not imply that the corresponding virus(es) are infectious or are the causative agents for clinical symptoms. There is a risk of false pos itive values resulting from cross-contamination by target organisms, their nucleic acids or amplified product, or from non-specific signals in the assay. HAILEY SARS-CoV-2 Assay is a Real-Time reverse-transcriptase polymerase chain reaction (RT-PCR) based qualitative in vitro diagnostic test intended for the qualitative detection of nucleic acid from the SARS-CoV-2 in nasopharyngeal swab specimens collected from individuals suspected of COVID-19 by their healthcare provider. Testing is limited to laboratories certified under the Clinical Laboratory Impr ovement Amendments of 1988 ( CLIA), 42 U.S.C. ?263a, to perform moderate and high complexity tests. COVID-19 Int Performed By: #### TAMRA POOLE U #### [place] [address] #### UA #### [place] [address] Symptomatic as Defined by CDC Yes Normal [facility] ([place]) Comment on above: Performed By: #### VIRGILIO JORDYNAshleigh U #### [place] [address] #### UA #### [place] [address] .Auto Diff on 2020 Basophil, Absolute 0.10 10 3/mcL Normal 0.00-0.19 [facility] ([place]) Comment on above: Performed By: #### CBC, ANEU , PBNP, ADIFF, BMP, TROPHS #### [place] [address] #### GFR #### [place] [address] Basophils/100 WBC (Bld) 0.7 % Normal 0.0-2.5 [facility] ([place]) Comment on above: Performed By: #### CBC, ANEU , PBNP, ADIFF, BMP, TROPHS #### [place] [address] #### GFR #### [place] [address] Eosinophil, Absolute 0.10 10 3/mcL Normal 0.00-0.40 [facility] ([place]) Comment on above: Performed By: #### CBC, ANEU , PBNP, ADIFF, BMP, TROPHS #### [place] [address] #### GFR #### [address] [address] Eosinophils/100 WBC (Bld) 0.9 % Normal 0.0-7.0 [facility] ([place]) Comment on above: Performed By: #### CBC, ANEU , PBNP, ADIFF, BMP, TROPHS #### [address] [address] #### GFR #### [address] [address] Lymphocyte, Absolute 1.40 10 3/mcL Normal 0.77-3.85 [facility] ([place]) Comment on above: Performed By: #### CBC, ANEU , PBNP, ADIFF, BMP, TROPHS #### [place] [address] #### GFR #### [address] [address] Lymphocytes/100 WBC (Bld) 13.7 % Normal 10.0-50.0 [facility] ([place]) Comment on above: Performed By: #### CBC, ANEU , PBNP, ADIFF, BMP, TROPHS #### [place] [address] #### GFR #### [address] [address] Monocyte, Absolute 1.30 10 3/mcL High 0.15-1.00 [facility] ([place]) Comment on above: Performed By: #### CBC, ANEU , PBNP, ADIFF, BMP, TROPHS #### [place] [address] #### GFR #### [address] [address] Monocytes/100 WBC (Bld) 13.3 % High 1.7-13.0 [facility] ([place]) Comment on above: Performed By: #### CBC, ANEU , PBNP, ADIFF, BMP, TROPHS #### [place] [address] #### GFR #### [address] [address] Neutrophils/100 WBC (Bld) 71.4 % Normal 37.0-80.0 [facility] ([place]) Comment on above: Performed By: #### CBC, ANEU , PBNP, ADIFF, BMP, TROPHS #### [place] [address] [place], [place] [address] #### GFR #### [address] [address] .GFR on 03-02-2020 GFR 84 ml/min/1.73sqm Normal [facility] ([place]) Comment on above: Result Comment: GFR Population mean for Afri can [place], Non- Americans Ages 20-29 = 116 mL/min/1.73 sq.m. Ages 30-39 = 107 mL/min/1.73 sq.m. Ages 40-49 = 99 mL/min/1.73 sq.m. Ages 50-59 = 93 mL/min/1.73 sq.m. Ages 60-69 = 85 mL/min/1.73 sq.m. Ages 70+ = 75 mL/min/1.73 sq .m. Chronic Kidney Disease: Less than 60 mL/min/1.73 square meters End Stage Renal Disease: Les s than 15 mL/min/1.73 square meters Performed By: #### GFR #### [place] [address] [place], [place] [address] #### BMP #### [address] [address] GFR Non- 69 ml/min/1.73sqm Normal [facility] ([place]) Comment on above: Result Comment: GFR Population mean for Afri can [place], Non- Americans Ages 20-29 = 116 mL/min/1.73 sq.m. Ages 30-39 = 107 mL/min/1.73 sq.m. Ages 40-49 = 99 mL/min/1.73 sq.m. Ages 50-59 = 93 mL/min/1.73 sq.m. Ages 60-69 = 85 mL/min/1.73 sq.m. Ages 70+ = 75 mL/min/1.73 sq .m. Chronic Kidney Disease: Less than 60 mL/min/1.73 square meters End Stage Renal Disease: Les s than 15 mL/min/1.73 square meters Performed By: #### GFR #### [place] [address] #### BMP #### [address] [address] .NEUABS on Neutrophil, Absolute 7.10 10 3/mcL High 2.85-6.16 [facility] ([place]) Comment on above: Performed By: #### CBC, ANEU , PBNP, ADIFF, BMP, TROPHS #### [place] [address] #### GFR #### [address] [address] BMP on 03-02-2020 BUN/Creatinine Ratio 28 ratio High 7-27 [facility] ([place]) Comment on above: Performed By: #### CBC, ANEU , PBNP, ADIFF, BMP, TROPHS #### [place] [address] #### GFR #### [address] [address] Calcium [Mass/Vol] 8.8 mg/dL Normal 8.4-10.2 [facility] ([place]) Comment on above: Performed By: #### CBC, ANEU , PBNP, ADIFF, BMP, TROPHS #### [place] [address] #### GFR #### [address] [address] Chloride [Moles/Vol] 99 mmol/L Normal 98-107 [facility] ([place]) Comment on above: Performed By: #### CBC, ANEU , PBNP, ADIFF, BMP, TROPHS #### [place] [address] #### GFR #### [address] [address] CO2 [Moles/Vol] 26 mmol/L Normal 23-31 [facility] ([place]) Comment on above: Performed By: #### CBC, ANEU , PBNP, ADIFF, BMP, TROPHS #### [address] [address] #### GFR #### [address] [address] Creatinine [Mass/Vol] 1.05 mg/dL Normal 0.70-1.30 [facility] ([place]) Comment on above: Performed By: #### CBC, ANEU , PBNP, ADIFF, BMP, TROPHS #### [address] [address] #### GFR #### [address] [address] Electrolyte Balance 8.0 mEq/L Normal [facility] ([place]) Comment on above: Performed By: #### CBC, ANEU , PBNP, ADIFF, BMP, TROPHS #### [address] [address] #### GFR #### [address] [address] Glucose [Mass/Vol] 144 mg/dL High 83-110 [facility] ([place]) Comment on above: Performed By: #### CBC, ANEU , PBNP, ADIFF, BMP, TROPHS #### [address] [address] #### GFR #### [address] [address] Potassium [Moles/Vol] 4.1 mmol/L Normal 3.5-5.1 [facility] ([place]) Comment on above: Performed By: #### CBC, ANEU , PBNP, ADIFF, BMP, TROPHS #### [address] [address] #### GFR #### [address] [address] Sodium [Moles/Vol] 133 mmol/L Low 136-145 [facility] ([place]) Comment on above: Performed By: #### CBC, ANEU , PBNP, ADIFF, BMP, TROPHS #### [address] [address] #### GFR #### [address] [address] Urea nitrogen [Mass/Vol] 29 mg/dL High 7-18 [facility] ([place]) Comment on above: Performed By: #### CBC, ANEU , PBNP, ADIFF, BMP, TROPHS #### [place] [address] #### GFR #### [address] [address] CBC on 03-02-2020 Erythrocyte distribution width 14.9 % High 11.5-14.5 [facility] ([place]) (RBC) [Ratio] Comment on above: Performed By: #### CBC, ANEU , PBNP, ADIFF, BMP, TROPHS #### [place] [address] #### GFR #### [address] [address] Hematocrit (Bld) [Volume 28.9 % Low 42.0-52.0 [facility] ([place]) fraction] Comment on above: Performed By: #### CBC, ANEU , PBNP, ADIFF, BMP, TROPHS #### [place] [address] #### GFR #### [place] [address] Hgb 9.8 G/dL Low 14.0-18.0 [facility] ([place]) Comment on above: Performed By: #### CBC, ANEU , PBNP, ADIFF, BMP, TROPHS #### [address] [address] #### GFR #### [address] [address] MCH (RBC) [Entitic mass] 33.5 pg High 27.0-31.2 [facility] ([place]) Comment on above: Performed By: #### CBC, ANEU , PBNP, ADIFF, BMP, TROPHS #### [place] [address] #### GFR #### [place] [address] MCHC 34.0 G/dL Normal 31.8-35.4 [facility] ([place]) Comment on above: Performed By: #### CBC, ANEU , PBNP, ADIFF, BMP, TROPHS #### [place] [address] #### GFR #### [place] [address] MCV (RBC) [Entitic vol] 98.5 fL High 80.0-94.0 [facility] ([place]) Comment on above: Performed By: #### CBC, ANEU , PBNP, ADIFF, BMP, TROPHS #### [place] [address] #### GFR #### [place] [address] Platelet 280 10 3/mcL Normal 130-400 [facility] ([place]) Comment on above: Performed By: #### CBC, ANEU , PBNP, ADIFF, BMP, TROPHS #### [place] [address] #### GFR #### [place] [address] Platelet mean volume (Bld) 9.2 fL Normal 7.4-10.4 [facility] ([place]) [Entitic vol] Comment on above: Performed By: #### CBC, ANEU , PBNP, ADIFF, BMP, TROPHS #### [place] [address] #### GFR #### [place] [address] RBC 2.93 10 6/mcL Low 4.04-6.13 [facility] ([place]) Comment on above: Performed By: #### CBC, ANEU , PBNP, ADIFF, BMP, TROPHS #### [place] [address] #### GFR #### [place] [address] WBC 9.90 10 3/mcL Normal 4.60-10.80 [facility] ([place]) Comment on above: Performed By: #### CBC, ANEU , PBNP, ADIFF, BMP, TROPHS #### [address] [address] #### GFR #### [place] [address] PBNP on 03-02-2020 Natriuretic peptide B (Bld) 733 pg/mL High 0-125 [facility] ([place]) [Mass/Vol] Comment on above: Result Comment: NT-proBNP re sults of less than 300 pg/mL effectively rules out acute congestive h eart failure with 99% negative predictive value. Performed By: #### GFR #### [address] [address] #### BMP #### [place] [address] TROPHS on 03-02-2020 Troponin I High Sensitivity 12.0 ng/L Normal 0.0-76.2 [facility] ([place]) Comment on above: Performed By: #### GFR #### [place] [address] #### BMP #### [place] [address] XR CHEST 1 VIEW on 0 03-02-2020 XR CHEST 1 VIEW ORIGINAL Normal [facility] XR CHEST 1 VIEW ([place]) CLINICAL STATEMENT: tachycardia, leg swelling. COMPARISON: 01/30/2020 No focal consolidation, deejay estion, pleural effusion, or pneumothorax is seen. The cardiomediastinal silhouette and hilar contours are unremarkable. IMPRESSION: No acute process. Interpreted By: Carlos Martino DO Preliminary Report By: Carlos Martino DO Electronically Signed By: Carlos Martino DO Dictated Date: 03/02/2020 9:25:20 PM Prelim Date: 03/02/2020 9:25:20 PM Sign Date: 03/02/2020 9:26:31 PM Ordering Provider:Seth GREENE on 0 Albumin [Mass/Vol] Canceled Normal [facility] Comment on above: Order Comment: TEST ALBUMIN WAS CANCELLED, 02/07/2020 07:47 PAITENT DISCHARGED. Performed By: #### ALC #### [facility] [address] [place] [address] CALCIUM, IONIZED on 02-04-2020 CALCIUM, IONIZED 1.10 mmol/L Normal 1.10 - 1.33 [facility] Comment on above: Result Comment: The performa nce characteristics of ionized calcium tested in heparinized plasma or ser um have been validated by the individual laboratory sit e where testing is performed. Testing on heparinized plasm a or serum is not approved by the FDA; however, such appro blaire is not necessary. Performed By: #### TROP2 ### # [facility] [address] [place] [address] CORONAVIRUS 2019, SCREEN ASYMPTOMATIC on 02-04-2020 CORONAVIRUS 2019,PCR NOT DETECTED Normal Not Detected [facility] Comment on above: Result Comment: . This assay is designed to de tect the ORF1ab and/or S genes of SARS-CoV-2 via nucleic acid amplification. A Not Detected result does not preclude 2019-nCoV infection since th e adequacy of sample collection and/or low viral burden may result in presenc e of viral nucleic acids below the clinical sensitivity of this test met hod. Fact sheet for providers: chava ulloa.fda.gov/media/065132/download Fact sheet for patients: www .fda.gov/media/485783/download This test has received FDA E mergency Use Authorization (EUA) and has been verified by [facility] ([facility]). This test is only authorized for the d uration of time that circumstances exist to justify the authorization of the emergency use of in vitro diagnostic tests for the detection of SARS-Co V-2 virus and/or diagnosis of COVID-19 infection under section 564(b)(1) of t he Act, 21 U.S.C. 360bbb-3(b)(1), unless the authorization is terminated or revoked sooner. [facility] is certified under CLIA-88 as qualified to perform high co mplexity testing. Testing is performed in the [facility] laboratories located [place] [address] [place] [address]. Performed By: #### ALC #### [facility] [address] [place] [address] Lab Specimen Source Nasal, Nasopharyngeal Normal [facility] Comment on above: Performed By: #### ALC #### [facility] [address] [place] [address] CT ANGIO CHEST FOR PE on 02-04-2020 CT ANGIO CHEST FOR PE Normal [facility] Patient Name: JAGRUTI RAMIREZ STUDY: CT ANGIO CHEST FOR PE; 02/04/2020 12:24 pm INDICATION: tachycardia. COMPARISON: None. ACCESSION NUMBER(S): [id number] ORDERING CLINICIAN: DEVAUGHN SHEA TECHNIQUE: Helical data acquisition of the chest was obtained aft er IV injection of 60 ml of Isovue 370. Images were reformatted in axi al, coronal, and sagittal planes. 3D reconstructed MIPS volumetric images were also generated and reviewed. FINDINGS: POTENTIAL LIMITATIONS OF THE STUDY: None HEART AND VESSELS: No discrete filling defects within the main pulmonary artery or its branches. The thoracic aorta is of normal course and caliber wit hout aneurysm, dissection , but with mild atherosclerotic calcificati on. No coronary artery calcifications are seen. The study is not optimized for evaluation of coronary arteries. The cardiac chambers are not enlarged. MEDIASTINUM AND RADHA, LOWER NECK AND AXILLA: The visualized thyroid gland is within normal limits, the esophagus appears unremarkable. No evidence of thoracic lymphadenopathy by CT criteria . LUNGS AND AIRWAYS: A 4 mm nodule is present at the periphery of the left lower lung on image 137 of series 601, and there is a 3 mm nodule at the right middle lobe on image 148, and right upper lobe on imag e 124. These may be due to granulomas or intrapulmonary nodes, knowles charo follow-up within 1 year would be recommended if there are risk f actors for malignancy. There are small bilateral pleural effusion s greater on the right with compressive atelectasis at the posterio r basal segments, again greater on the right. There is ground- glass attenuation at the central aspect of the left upper lo be at the perihilar region, which may be due to compressive hypo aeration, but early pneumonic infiltrate is possible. Follow-up woul d be recommended if suspected clinically. UPPER ABDOMEN AND OTHER FINDINGS: The visualized subdiaphragmatic structures demonstrate no remarkable findings. CHEST WALL AND OSSEOUS STRUCTURES: There are no suspicious osseous lesions. IMPRESSION: 1. No evidence of pulmonary embolus, aneurysm or disse ction. 2. Several 4 mm pulmonary nodules as described probabl y benign. However follow-up within 1 year would be recommended i f there are risk factors for malignancy. 3. Bilateral pleural effusions with post basilar compr essive atelectasis greater on the right. 4. Ground-glass attenuation at the left lung centrally at the perihilar region, probably from hypoaeration but early pneumonic infiltrate is possible. Covid 19 Results NEGATIVE COVID-19 Test Normal [facility] Coronaviruses are common world-wide and are the cause of many common colds. SARS-COV2 is a new coronavirus that began circul ating worldwide in 2019 so we are calling it COVID-19. It has been estimated t hat four out of five patients with COVID-19 will recover at home without the need fo r medical attention. Symptoms of COVID-19 include cough, fever, short ness of breath, loss of taste or smell and other flu-like symptoms including chills, sore muscles, sore throat, and headache. Severe illness is more common in older people and people with other health problems such as high blood pressure , obesity, and immune system problems. If the test is positive, you have COVID-19. You will b e contacted by the ordering physicians office and instructed to remain on home isolation, in accordance with CDC guidelines. You may also be contac mela by the [facility] to see if any of your close contacts may have been exposed to the virus and need to quarantine. If the test is negative, you likely do n ot have COVID-19 at this time, but you still may have a different illness that can spread to other people (like Influenza, or the Flu) and could still be at risk for getting COVID-19. We recommend that you stay away from other people t o limit the spread of illness until your symptoms are improving and you are fe charo-free for 24 hours without the use of fever lowering medications such as acetamin ophen or ibuprofen. No test is 100% accurate so if you are still concerned you may have COVID-19, talk to your doctor about the need to continue to stay away from others. Medicines Acetaminophen (Tylenol and others) is generally safe. Anti-inflammatory medications, such as Ibuprofen (Advil or Motrin) or Na proxen (Aleve) can also be used. Yfto-iyc-vtyhojd cough and cold me dicines can be used according to the instructions on the package. Some ekdh-jus-ddbc ter medicines also contain acetaminophen. Make sure you are not taking more than your recommended dose For those not hospitalized, there is no [facility] treatment available for this illness. Antibiotics do not treat Coronaviruses. Follow-Up Follow up with your doctor by scheduling a virtual visit or consider follow-up at one of our urgent care fever clinics. If you are rai ving difficulty breathing, or are very weak and having difficult y standing, this is a medical emergency. Call 911 or have someone take you to the [facility] emergency room immediately. If possible, wear a facemask. Additional guidance from the CDC for pat ients who tested POSITIVE for COVID-19 How to isolate: Isolate yourself in a specif ic room at home and limit your contact with others. Use a separate bathroom from other members of the [facility], when possible. Leave home only to get essential medical care. Do not go to work, school or public areas. Avoid using public transportation, ride-sharing, or ta xis. Restrict contact with pets and other ani mals. If you must care for your pet or be around animals while you are sick, wash your hands before and after your interaction and wear a facemask. Make sure that shared spaces in the home have go od airflow, such as by an air conditioner or an opened window, weather permitting. Personal Hygiene Procedures: Wear a face mask when in the same room a s other people or pets. If a face mask interferes with your breathing, others should wear a m ask when sharing space with you. Frequent hand-washing: wash your hands with soap and w ater for at least 20 seconds. If soap and water a re not available, use alcohol-based hand medical staff coordinator. Avoid touching your eyes, nose, and mouth with unwashe d hands. Household Hygiene Procedures: Avoid sharing personal household items s uch as dishes, glassware, cups, eating utensils, towels or bedding with other p eople or pets in your home. After use, these items should be washed with soap and hot water. Disinfect all high-touch surfaces every day with antib acterial cleaning solutions such as Lysol wipes, bleach, cleansers, etc. High-touch surfaces include tabletops, doorknobs, bathroom fixtures, toile ts, phones, keyboards, tablets and bedside tables. Immediately clean any surfaces that may have blood, po op or body fluids on them, using antibacterial cleaning solutions such as L ysol wipes, bleach, cleansers, etc. If clothing or bedding come into contact with blood, poop or body fluids, they should be washed immediately. Follow the directions on the laundry detergent and clothing labels but hot water is recommended when possible. Stopping home isolation precautions: If possible, consult your doctor before stopping home isolation precautions. According to the CDC, you can discontinue home i solation precautions when you have met both of these criteria: Your fever and respiratory s ymptoms have been gone for 24 hours without the use of any medicines like ibuprofen (Motrin) and acetamino phen (Tylenol). It has been at least 10 days since your symptoms first appeared. If you are immunosuppressed OR you were admitted to the hospital for this, you should wait until it has been 14 days since your symptoms first ap peared. Guidelines for Those Living With and/or Caring For Per sons with COVID-19: Read and follow all the recommendations outlined in th is handout. Do not permit visitors in the home unless there is an essential need. Wear a facemask when in the same room as the patient. Wear a facemask and gloves (disposable if available) w hen you touch or have contact with the patient's blood, poop, or body fluids including saliva, phlegm, nasal mucus, vomit or urine. Clean or th row away facemasks and gloves after use and wash your hands with soap and water. You will need to quarantine (stay away from others) for 14 days after your last contact with your family member with COVID-19. The per son with COVID-19 is considered contagious 48 hours prior to symptoms begin david (or starting with the day of the positive test if they hav e no symptoms) for a total of 10 days. Additional resources: [facility] COVID Hotline at 3-099-4COQO ( ). COVID-19 Careline at (available 24 hours per day, seven days a week if you or a loved one is experiencing anxie ty related to the coronavirus pandemic). Clinical research opportunities: is conductin g research studies to develop better testing and treatments for COVID. Do you want any information on how to participate Call [phone]. Websites: hospitals.org or www.CDC.gov Follow My Health / My Care (for other test results): Revised 01/04/2020 Electronic Signatures: Ted Jean (ADMIN) (Signature pending) Authored Last Updated: 04-Feb-2020 09:27 by FUNMI Jean (ADMIN) Daily Progress Note-Cardiology on 02-04-2020 Daily Progress Service: Cardiology Normal [facility] Subjective Data: JAGRUTI RAMIREZ is a 74 year old Male who is Hospital Day # 6. Additional Information: Denies chest pain or pressure. Lying in bed at an angl e trying to get out. Objective Data: Objective Information: T PRBPSpO2 [id number]/9194% Date/Time02/03 7: 3: 3: 7: 7:56 Range(35.8C - 36.7C ) (67 - 106 ) (18 - 20 ) (120 - 13 3 )/ (53 - 91 ) (94% - 96% ) Pain reported at 02/03 8:00: 0 = None ---- Intake and Output ----- Mn/Dy/Year TimeIntakeOutputNet Feb 04, 2020 6:00 [id number] Feb 03, 2020 10:00 [id number] Feb 03, 2020 2:00 [id number] The Intake and Output Totals for the last 24 hours are : IntakeOutputNet [id number] Alert and oriented x1 or 2 n ashlyn no JVP lungs are clear heart rhythm regular 2/6 to 3/6 aortic stenosis murmur abdomen soft extremities no edema Medication: Medications: Continuous Medications 1. Dextrose 5% in Water Infusion: 1000 mL IntraVenous Scheduled Medications 1. Ampicillin - Sulbactam 3 gm/NaCL 0.9% IVPB Soln 100 mL: 3 gram(s) IntraVenous Piggyback Every 12 Hours 2. diazePAM (VALIUM): 2.5 mg Oral Every 6 Hours 3. Enoxaparin SubCutaneous: 40 mg SubCutaneous Every 2 4 Hours 4. Folic Acid: 1 mg Oral Daily 5. Insulin Glargine (Lantus) Injectable: 6 unit(s) Sub Cutaneous 2 Times a Day 6. Insulin Lispro Mild Corrective Scale: unit(s) SubCu taneous Every 4 Hours 7. Metoprolol Tartrate: 50 mg Oral 2 Times a Day 8. Multivitamin with Minerals: 1 tablet(s) Oral Daily 9. Pantoprazole: 40 mg Oral Daily 10. Sodium Chloride 0.9% Injectable Flush: 10 mL Intra Venous Flush Every 12 Hours 11. Tamsulosin: 0.4 mg Oral Daily 12. Thiamine: 500 mg Oral Daily 13. Valproic Acid (Depakene): 1000 mg Oral Every 12 Ho urs PRN Medications 1. Dextrose 50% in Water Injectable: 25 gram(s) IntraV enous Push Every 15 Minutes 2. Glucagon Injectable: 1 mg IntraMuscular Every 15 Mi nutes 3. Heparin Flush 10 unit/ mL PF Injectable: 5 mL Intra Venous Flush Every 12 Hours 4. Heparin Flush 10 unit/ mL PF Injectable PRN: 5 mL I ntraVenous Flush According to Flush Policy 5. Lidocaine 1% Injectable (PICC KIT): 1 mL IntraDerma l Once 6. LORazepam Injectable: 1 mg IntraVenous Push Every 6 Hours 7. Sodium Chloride 0.9% Injectable Flush PRN: 10 mL In traVenous Flush According to Flush Policy 8. Sodium Chloride 0.9% Injectable Flush PRN: 20 mL In traVenous Flush According to Flush Policy Conditional Medication Orders 1. Perflutren Lipid Microsphere (Activated) 1.3 mL / N aCL 0.9% T.V. 10 mL Injectable: 0.5 mL IntraVenous Push Once Recent Lab Results: Results: CBC: 02/03/2020 11:12 \ Hgb / \ 10.7 L / WBC Plt 10.7 175 / Hct \ / 32.6 L \ RBC: 3.06 L MCV: 107 H BMP: 02/03/2020 11:12 NA+ Cl- BUN / 137 103 11 / Glucose 144 H K+ HCO3- Creat \ 3.6 26 0.67 \ Calcium : 7.6 L Anion Gap : 12 Radiology Results: Results: Conclusion: CONCLUSIONS: 1. The left ventricular systolic function is normal wi th a 70-75% estimated ejection fraction. 2. Spectral Doppler shows an impaired relaxation patte rn of left ventricular diastolic filling. 3. There is moderate concentric left ventricular hyper trophy. 4. Slightly elevated RVSP. 5. Possible bicuspid AV with Moderate AVmax 2.8m/s Peak/mean gradient 30/17mmHg FRANSICO 1.3cm2. 6. There is mild to moderate aortic valve regurgitatio n. QUANTITATIVE DATA SUMMARY: 2D MEASUREMENTS: Normal Ranges: LAs: 3.87 cm (2.7-4.0cm) RVIDd: 3.40 cm (0.9-3.6cm) IVSd: 1.65 cm (0.6-1.1cm) LVPWd: 1.53 cm (0.6-1.1cm) LVIDd: 4.11 cm (3.9-5.9cm) LVIDs: 1.91 cm LV Mass Index: 161.9 g/m2 LV % FS 53.6 % LA VOLUME: Normal Ranges: LA Area A4C: 19.9 cm2 LA Area A2C: 18.9 cm2 LA Volume Index: 35.8 ml/m2 LA Vol A4C: 51.0 ml LA Vol A2C: 53.0 ml RA VOLUME BY A/L METHOD: Normal Ranges: RA Area A4C: 15.0 cm2 M-MODE MEASUREMENTS: Normal Ranges: LAs: 4.58 cm (2.7-4.0cm) LV SYSTOLIC FUNCTION BY 2D PLANIMETRY (MOD): Normal Ranges: EF-A4C View: 69.9 % (>55%) EF-A2C View: 81.9 % EF-Biplane: 75.3 % LV DIASTOLIC FUNCTION: Normal Ranges: MV lateral e' 0.08 m/s MV medial e' 0.06 m/s MV A Dur: 186.85 msec AORTIC VALVE: Normal Ranges: AoV Vmax: 2.76 m/s (<1.7m/s) AoV Peak P.4 mmHg (<20mmHg) AoV Mean P.1 mmHg (1.7-11.5mmHg) LVOT Max Roney: 1.18 m/s (<1.1m/s) AoV VTI: 61.72 cm (18-25cm) LVOT VTI: 26.13 cm LVOT Diameter: 2.00 cm (1.8-2.4cm) AoV Area, VTI: 1.33 cm2 (2.5-5.5cm2) AoV Area,Vmax: 1.35 cm2 (2.5-4.5cm2) AoV Dimensionless Index: 0.42 AORTIC INSUFFICIENCY: AI Vmax: 3.95 m/s AI Half-time: 402 msec AI Decel Time: 1386 msec AI Decel Rate: 286.00 cm/s2 RIGHT VENTRICLE: RV 1 3.4 cm RV 2 2.9 cm RV 3 7.0 cm TAPSE: 32.0 mm RV s' 0.19 m/s TRICUSPID VALVE/RVSP: Normal Ranges: Peak TR Velocity: 2.69 m/s RV Syst Pressure: 32.0 mmHg (< 30mmHg) AORTA: Asc Ao Diam 2.70 cm [id number] Donya Elias MD Electronically signed on 01/31/2020 at 8:25:07 PM Final Echocardiogram [Jan 31 2020 8:25PM] Assessment and Plan: Code Status: Code StatusDNAR with Added Limitations Assessment: Past medical history: 1. Type 2 diabetes 2. Hypertension 3. History of alcoholism 4. Kidney issues 01/31/2020 1. Elevated troponin. Most likely due to demand ischemia rather than an acute coronary syndrome. No symptoms of angina. He has signi ficant rhabdomyolysis likely related to being found on the floor becau se of alcohol intake. We will start 1 baby aspirin daily. Statins if his liver enzymes tolerated. He was on atorvastatin prior to coming in. 2. Possible ventricular tachycardia. I see no evidence of this. I do not have the strips from [place]. He has normal LV funct ion on his echo. Discontinue IV amnio. 3. Aortic stenosis. At least moderate. No specific the rapy is required at this time. 4. Hypertension. Currently his blood pressures are sammie sonably well controlled. At home he was on enalapril and hydrochlor othiazide along with metoprolol. Reinitiating metoprolol would be reasonabl e rather than amiodarone. Thanks for this consult I will follow along with you. 02/01/2020 1. Elevated troponin. Type II myocardial infarction. C ontinue aspirin. 2. Wide-complex tachycardia possible ventricular tachy cardia [facility]. No recurrence here. Off IV amnio. Continue b eta-blockers. LV function is normal. 3. Aortic stenosis. Moderate. No specific therapy requ ired. 02/02/2020 1. Elevated troponin. Type II myocardial infarction du e to demand. Continue antiplatelet therapy with aspirin. 2. Wide-complex tachycardia while at [facility] l. No recurrence on telemetry. Off IV amnio. Continue beta-blockers. LV fu nction is normal. 3. Moderate aortic stenosis. This will be monitored. 4. Hypokalemia and hypomagnesemia. Both of these will be repleted. 02/03/2020 1. Elevated troponin due to a type II myocardial infar ction. He is on antiplatelet therapy with aspirin and doing well. 2. Runs of wide-complex tachycardia. Initially on amio darone at [facility]. On telemetry he has intermittent tachy cardia. He does have 3-5 beat salvos of wide-complex tachycardia. He h as normal LV function and therefore no specific therapy is required. I will increase th e dose of his metoprolol from 25-50 twice daily. 2. Aortic stenosis. This was moderately severe. This w ill be monitored peripherally. 02/04/2020 1. Elevated troponin due to a type II myocardial infar ction. LV function is normal. Continue with antiplatelet therapy and beta-bl ockers. 2. Runs of wide-complex tachycardia. Still somewhat ta chycardic on exam. He is off amiodarone. Continue metoprolol at the higher d ose. We may need to increase the dose to 75 twice daily. 3. Aortic stenosis. Moderately severe. Given his overa ll condition and the fact that this is not severe this will be handled loulou pherally. Electronic Signatures: Donya Elias) (Signed 04-Feb-2020 09:41) Authored: Service, Subjective Data, Objective Da ta, Assessment and Plan, Note Completion Last Updated: 04-Feb-2020 09:41 by Donya Elias) Daily Progress Note-Urology on 02-04-2020 Daily Progress Consult Type: subsequent visit/care urinary retentio n Normal [facility] Service: Urology Subjective Data: JAGRUTI RAMIREZ is a 74 year old Male who is Hospital Day # 6. Urology recommendation was to wait for the Trial of vo id until patient was stronger. The lopez catheter was removed early this am and the patient is incontinent. Objective Data: Objective Information: T PRBPSpO2 [id number]/9194% Date/Time02/03 7: 3: 3: 7: 7:56 Range(35.8C - 36.7C ) (67 - 106 ) (18 - 20 ) (120 - 13 3 )/ (53 - 91 ) (94% - 96% ) Pain reported at 02/03 8:00: 0 = None ---- Intake and Output ----- Mn/Dy/Year TimeIntakeOutputNet Feb 04, 2020 6:00 [id number] Feb 03, 2020 10:00 [id number] Feb 03, 2020 2:00 [id number] The Intake and Output Totals for the last 24 hours are : [facility] [id number] Physical Exam by System Constitutional: Well developed, awake, no distress, al ert and cooperative Gastrointestinal: soft , non-tender, non-distended Genitourinary: patient not wearing a brief and is inco ntinent Psychological: Appropriate mood and behavior Medication Medications: Continuous Medications 1. Dextrose 5% in Water Infusion: 1000 mL IntraVenous Scheduled Medications 1. Ampicillin - Sulbactam 3 gm/NaCL 0.9% IVPB Soln 100 mL: 3 gram(s) IntraVenous Piggyback Every 12 Hours 2. diazePAM (VALIUM): 2.5 mg Oral Every 6 Hours 3. Enoxaparin SubCutaneous: 40 mg SubCutaneous Every 2 4 Hours 4. Folic Acid: 1 mg Oral Daily 5. Insulin Glargine (Lantus) Injectable: 6 unit(s) Sub Cutaneous 2 Times a Day 6. Insulin Lispro Mild Corrective Scale: unit(s) SubCu taneous Every 4 Hours 7. Metoprolol Tartrate: 50 mg Oral 2 Times a Day 8. Multivitamin with Minerals: 1 tablet(s) Oral Daily 9. Pantoprazole: 40 mg Oral Daily 10. Sodium Chloride 0.9% Injectable Flush: 10 mL Intra Venous Flush Every 12 Hours 11. Tamsulosin: 0.4 mg Oral Daily 12. Thiamine: 500 mg Oral Daily 13. Valproic Acid (Depakene): 1000 mg Oral Every 12 Ho urs PRN Medications 1. Dextrose 50% in Water Injectable: 25 gram(s) IntraV enous Push Every 15 Minutes 2. Glucagon Injectable: 1 mg IntraMuscular Every 15 Mi nutes 3. Heparin Flush 10 unit/ mL PF Injectable: 5 mL Intra Venous Flush Every 12 Hours 4. Heparin Flush 10 unit/ mL PF Injectable PRN: 5 mL I ntraVenous Flush According to Flush Policy 5. Lidocaine 1% Injectable (PICC KIT): 1 mL IntraDerma l Once 6. LORazepam Injectable: 1 mg IntraVenous Push Every 6 Hours 7. Sodium Chloride 0.9% Injectable Flush PRN: 10 mL In traVenous Flush According to Flush Policy 8. Sodium Chloride 0.9% Injectable Flush PRN: 20 mL In traVenous Flush According to Flush Policy Conditional Medication Orders 1. Perflutren Lipid Microsphere (Activated) 1.3 mL / N aCL 0.9% T.V. 10 mL Injectable: 0.5 mL IntraVenous Push Once Recent Lab Results Results: CBC: 02/03/2020 11:12 \ Hgb / \ 10.7 L / WBC Plt 10.7 175 / Hct \ / 32.6 L \ RBC: 3.06 L MCV: 107 H BMP: 02/03/2020 11:12 NA+ Cl- BUN / 137 103 11 / Glucose 144 H K+ HCO3- Creat \ 3.6 26 0.67 \ Calcium : 7.6 L Anion Gap : 12 Assessment and Plan: Code Status Code StatusDNAR with Added Limitations Impression 1: Rhabdomyolysis Plan for Impression 1: medically managed Impression 2: Type 2 diabetes mellitus Plan for Impression 2: Medically managed Impression 3: Urinary retention Plan for Impression 3: The following was Urology recom mendation: Continue flomax and maintain the lopez catheter. I spoke with t he CC team and the patient will be DC with the lopez catheter and F/U for trial of void. Yesterday Urology recommendation was to wait for TOV. Lopez catheter was removed p er a kimberleyling protocol and the patient is currently incontinent awaiting bladder scan. If greater than 300cc insert lopez, if under 300cc place an external condom catheter to keep the pa tient dry. Thank you for allowing us to participate in his care. Electronic Signatures for Addendum Section: Abelardo Martinez) (Signed Addendum 04-Feb-2020 1 3:34) Patient was seen and I agree with physician certified registered dental assistant assessment and plan. Electronic Signatures: Chilango Gómez (PAC) (Signed 04-Feb-2020 09:49) Authored: Service, Subjective Data, Objective Da ta, Assessment and Plan, Note Completion Last Updated: 04-Feb-2020 13:34 by Abelardo Martinez) Discharge Profile2 o n 02-04-2020 Discharge Profile2 Discharge Orders: Normal [facility] Anticipated Discharge Date: Center Anticipated Discharge [id number] Anticipated Discharge Time15:32 Gold Form Orders: Care Recommendation: I recommend that INPATIENT care is required at:Skilled Estimated Stay30 - 180 days PrognosisGood Rehab Potential/FunctionImprove Provider CertificationI certify that inpatient care is required at the level recommended above. To the best of my kno wledge, all information provided about the individual is a true and accurate reflection of the individual's condition. Provider FINAL REVIEW of Orders: Final Review: Final Review of Medication Reconciliation and Orders C ompletedby Physician Reviewing ProviderChrisnadia Shea DO at 0 15:33:14 Appointments: Follow-Up Appointment 01: Physician/Dept/Butch Washburn [facility] Urology Reason for Referralurinary retention/ incontinence Call to Schedule in2 weeks [address] [place] [address] Phone [phone] CommentsPlease arrive at least 15 minutes prior to [facility] appointment along with any co-pays if it applies, Please bring ins urance card, photo id, list of medicines, and discharge papers to your appoin tment. If you can not keep this appointment, Please call the office directly to reschedule Electronic Signatures: Chilango Gómez (PAC) (Signed 04-Feb-2020 09:58) Authored: Discharge Orders, Appointments, Gold F orm - Train Station Agent Summary Devaughn Shea () (Signed 04-Feb-2020 15:33) Authored: Discharge Orders, Gold Form Orders, Pr ovider FINAL REVIEW of Orders Last Updated: 04-Feb-2020 15:33 by Devaughn Shea () GLUCOSE-POCT on 01-17 Glucose [Mass/Vol] 116 mg/dL High 74 - 99 [facility] Comment on above: Performed By: #### ALC #### [facility] [address] [facility] [place] [address] Glucose [Mass/Vol] 85 mg/dL Normal 74 - 99 [facility] Comment on above: Performed By: #### GLUPO ### #[facility] [place] [address] Glucose [Mass/Vol] 109 mg/dL High 74 - 99 [facility] Comment on above: Performed By: #### GLUPO ### # [facility] [address] [facility] [place] [address] Glucose [Mass/Vol] 97 mg/dL Normal 74 - 99 [facility] Comment on above: Performed By: #### CMP #### [facility] [address] [facility] [place] [address] Nutrition Therapy-Follow Up on 02-04-2020 Nutrition Therapy-Follow Assessment Subjective/Objective: Normal [facility] Medical Up Note Type: Follow Up Center Note Authored by: Registered Dietitian Molding Sander Pager Number: [phone] Nutrition Note: The patient is a 74 year old Male admitted with ventri cular tachycardia. Follow up: Pt eating 75-100% of meals, Pureed Cardiac diet ordered with NTL. SF Mighty shakes ordered twice a day. Palliative consu lted. Recommend: 1) Liberalize diet to Pureed No added salt due to pre packaged Pureed meals. 2) Continue with shakes as ordered 3) Weigh weekly. Objective Information: Pain reported at 02/03 8:00: 0 = None ---- Intake and Output ----- Mn/Dy/Year TimeIntakeOutputNet Feb 04, 2020 6:00 [id number] Feb 03, 2020 10:00 [id number] Feb 03, 2020 2:00 [id number] The Intake and Output Totals for the last 24 hours are : IntakeOutputNet [id number] Height/Weight: Weight (kg): 58.4 BMI (kg/m2): 21.424 square meter DBW (kg): 61.8 %DBW: 94 Weight history/ % weight change: no weight hx in EMR Recent Lab Results: Results: I have reviewed these laboratory results: Glucose_POCT Trending View [id number] 07:53:00 04-Feb-2020 03:54:00 01:18:00 03-Feb-2020 19:51:00 03-Feb-2020 16:36:00 03-Feb-2020 11:21:00 03-Feb-2020 07:28:00 03-Feb-2020 04:31:00 02-Feb-2020 23:56:00 Jan-2020 20:32:00 02-Feb-2020 17:12:00 02-Feb-2020 14:43:00 [id number] H 85 116 H 185 H 130 H 131 H 109 H 112 H 133 H 141 H 115 H 110 H Coronavirus 2019, Screen Asymptomatic 03-Feb-2020 23:2 2:00 ResultValue Fluid Source Nasal, Nasopharyngeal Coronavirus 2019,PCR NOT DETECTED Reference Range: Not Detected . This assay is designed to detect the ORF1ab and/or S g sloane of SARS-CoV-2 via nucleic acid amplification. A Not Detected result does not preclude 2019-nCoV infection since the adequacy of sample ashli Complete Blood Count 03-Feb-2020 11:12:00 ResultValue Lab Comment: Specimen collection perform ed by [employer]: [email or web address] White Blood Cell Count 10.7 Nucleated Erythrocyte Count 0.0 Red Blood Cell Count 3.06 L HGB 10.7 L HCT 32.6 L MCV 107 H MCHC 32.8 PLT 175 RDW-CV 13.5 Basic Metabolic Panel 03-Feb-2020 11:12:00 ResultValue Lab Comment: Specimen collection perform ed by [employer]: [email or web address] Glucose, Serum 144 H NA 137 K 3.6 CL 103 Bicarbonate, Serum 26 Anion Gap, Serum 12 BUN 11 CREAT 0.67 GFR-Non >60 GFR- >60 Calcium, Serum 7.6 L Magnesium, Serum 03-Feb-2020 11:12:00 ResultValue Lab Comment: Specimen collection perform ed by [employer]: [email or web address] Magnesium, Serum 1.91 Phosphorus, Serum 03-Feb-2020 11:12:00 ResultValue Lab Comment: Specimen collection perform ed by [employer]: [email or web address] Phosphorus, Serum 2.2 L Calcium, Ionized Level 03-Feb-2020 07:51:00 ResultValue Calcium, Ionized Level 1.06 L Current Active Medications/PN: Multivitamin with Minerals, Tablet DOSE = 1 tablet(s) Oral Daily, 30-Jan-2020 Folic Acid, Tablet DOSE = 1 mg Oral Daily, 01-Feb-2020 Thiamine, Tablet DOSE = 500 mg Oral Daily, 01-Feb-2020 Dextrose 5% in Water Infusion, IV Bag Volume = 1,000 m L Run at: 100 mL/hr IntraVenous , 01-Feb-2020 Nutrition Orders: Diet May Participate in Room Service Paulino Sims Order entered from Admission Screens., 31-Jan-2020 Diet, Cardiac Texture: Pureed 4 Liquid Consistency: Mild thick 2 ([place] thick), Oral Nutritional Supplements, Routine Sugar Free Mighty Shake ([facility] Only), 2 Times a Day Special Instructions: send at lunch and dinner, Food/Nutrition Related History: Change in Oral Intake/Appetite: increase 75-100% GI Symptoms: none, last BM 02/03 loose Time Frame for GI Symptoms Greater Than 2 Weeks: not a pplicable Oral Problems: swallowing difficulty, mild dysphagia Food Allergies: Allergen/ProductAllergen TypeReactionStatus NKDAActive PorkFoodUnknownActive MustardFoodUnknownActive Food Allergies Comment: pork and mustard Nutrition Focused Physical Findings: Physical Findings: deferred --precaution in setting of COVID-19 pandemic Other Physical Findings: Skin: multiple abrasions Edema: +1, BLE Subjective Global Assessment Rating: unable to determi ne at this time Estimated Needs: kcals/day: 0446-0167 gms protein/day: 47-58 mL fluid/day: 1mL/kcal or per MD. Nutrition Diagnosis: Diagnosis1 ongoing. Dx: Inadequate oral intake. relate d to acute illness, confusion as evidenced by 50-75% x3 meals. Diagnosis2 ongoing. Dx: Increased nutrient needs. rela mela to physiological causes increasing nutrient needs as evidenced by multi ple abrasions. Nutrition Interventions: Individualized Nutrition Prescription Provided for: di et, vitamins, minerals Diet Education Provided: po intakes improved, will con tinue to monitor and resolve dx next follow up Ordered Supplements: SF Mighty shakes twice a day Other Interventions: Evaluate nutrition interventions as compared to nutrition goals and estimated nutrient need criteria. Nutrition Goals: Goals: Nutrition Therapy: oral intake greater than 75% , consume prescribed supplement, adequate po fluid intake, Blood Glucose 80 -180 mg/dl, lab values within normal limits, promote healing, maintain stable weight Nutrition Goal Outcomes: goal partially met Outcomes Summary: Nutrition Therapy Progress: Nutrition Therapy: improving Outcome Summary: Nutritional Therapy: Inadequate oral intakes with increased nutrient needs. Will continue with SF Shakes twice a d ay NUTRITION RECOMMENDATIONS: Recommendations: 1) Continue with diet as ord ered and tolerated. Will defer diet textures to CLEANING AND MAINTENANCE WORKER for safest diet consistency 2) Will continue with SF Mighty shakes twice a day 3) Weigh weekly 4) Monitor and encourage intakes Nutrition Therapy Recommendations: Nutrition Therapy Recommendations: See RD note for rec ommendations Labs/Monitors: Blood Glucose frequency: every 6 hrs Additional Labs: replete electrolytes prn Dietitian Monitoring and Evaluation Plan: Monitoring and Evaluation Pl an: po intake and tolerance, fluid intake/adequacy, vitamin/mineral intake, weight trend, stool output, sk in healing/integrity, overall appearance, labs Diet Education: Nutrition Education: NA Time Spent (minutes): 30 Nutrition Support: no Electronic Signatures: Emily Gross (NANCY) (Signed 04-Feb-2020 12:14) Authored: Assessment Subjective/Objective, Nutrition F ocused Physical Findings, Estimated Needs, Nutrition Diagnosis, Nutrit ion Interventions, Nutrition Goals, Nutrition Recommendations, Parenteral Nutrition Recommendations, Dietitian M onitoring and Evaluation Plan, Diet Education, Time Spent/Nutrition Support Last Updated: 04-Feb-2020 12:14 by Emily Gross (NANCY) BASIC METABOLIC PANEL on 02-03-2020 Anion gap [Moles/Vol] 12 mmol/L Normal 10 - 20 [facility] Comment on above: Order Comment: Specimen ashli ection performed by [employer]: [email or web address] Performed By: #### BMP ####P [facility] [place] [address] Calcium [Mass/Vol] 7.6 mg/dL Low 8.6 - 10.3 [facility] Comment on above: Order Comment: Specimen ashli ection performed by [employer]: [email or web address] Performed By: #### BMP ####P [facility] [place] [address] Chloride [Moles/Vol] 103 mmol/L Normal 98 - 107 [facility] Comment on above: Order Comment: Specimen ashli ection performed by [employer]: [email or web address] Performed By: #### BMP ####[address] [address] Creatinine [Mass/Vol] 0.67 mg/dL Normal 0.50 - 1.30 [facility] Comment on above: Order Comment: Specimen ashli ection performed by [employer]: [email or web address] Performed By: #### BMP ####[address] [address] GFR- AM. >60 Normal >60 [facility] Comment on above: Order Comment: Specimen ashli ection performed by [employer]: [email or web address] Result Comment: CALCULATIONS OF ESTIMATED GFR ARE PERFORMED USING THE MDRD STUDY EQUATIO N FOR THE IDMS-TRACEABLE CREATININE ME THODS. CLIN CHEM 2007;53:766-72 Performed By: #### BMP ####[address] [address] GFR-NON AM. >60 Normal >60 [facility] Comment on above: Order Comment: Specimen ashli ection performed by [employer]: [email or web address] Performed By: #### BMP ####[address] [address] Glucose [Mass/Vol] 144 mg/dL High 74 - 99 [facility] Comment on above: Order Comment: Specimen ashli ection performed by [employer]: [email or web address] Performed By: #### BMP ####[address] [address] HCO3 (Bld) [Moles/Vol] 26 mmol/L Normal 21 - 32 [facility] Comment on above: Order Comment: Specimen ashli ection performed by [employer]: [email or web address] Performed By: #### BMP ####[address] [address] Potassium [Moles/Vol] 3.6 mmol/L Normal 3.5 - 5.3 [facility] Comment on above: Order Comment: Specimen ashli ection performed by [employer]: [email or web address] Performed By: #### BMP ####P [facility] [place] [address] Sodium [Moles/Vol] 137 mmol/L Normal 136 - 145 [facility] Comment on above: Order Comment: Specimen ashli ection performed by [employer]: [email or web address] Performed By: #### BMP ####P [facility] [place] [address] Urea nitrogen [Mass/Vol] 11 mg/dL Normal 6 - 23 [facility] Comment on above: Order Comment: Specimen ashli ection performed by [employer]: [email or web address] Performed By: #### BMP ####[address] [address] CALCIUM, IONIZED on 02-03-2020 CALCIUM, IONIZED 1.06 mmol/L Low 1.10 - 1.33 [facility] Comment on above: Result Comment: The performa nce characteristics of ionized calcium tested in heparinized plasma or ser um have been validated by the individual laboratory sit e where testing is performed. Testing on heparinized plasm a or serum is not approved by the FDA; however, such appro blaire is not necessary. Performed By: #### TROP2 ### # [address] [address] CBC on 02-03-2020 Erythrocyte distribution width 13.5 % Normal 11.5 - 14. 5 [facility] (RBC) [Ratio] Comment on above: Order Comment: Specimen ashli ection performed by [employer]: [email or web address] Performed By: #### GLUPO ### # [address] [address] Hematocrit (Bld) [Volume fraction] 32.6 % Low 41.0 - 52.0 [facility] Comment on above: Order Comment: Specimen ashli ection performed by [employer]: [email or web address] Performed By: #### GLUPO ### # [facility] [address] [place] [address] Hemoglobin (Bld) [Mass/Vol] 10.7 g/dL Low 13.5 - 17.5 [facility] Comment on above: Order Comment: Specimen ashli ection performed by [employer]: [email or web address] Performed By: #### GLUPO ### # [address] [address] MCHC (RBC) [Mass/Vol] 32.8 g/dL Normal 32.0 - 36.0 [facility] Comment on above: Order Comment: Specimen ashli ection performed by [employer]: [email or web address] Performed By: #### GLUPO ### # [address] [address] MCV (RBC) [Entitic vol] 107 fL High 80 - 100 [facility] Comment on above: Order Comment: Specimen ashli ection performed by [employer]: [email or web address] Performed By: #### GLUPO ### # [address] [address] Nucleated RBC/100 WBC (Bld) 0.0 /100 WBC Normal 0.0 - 0.0 [facility] [Ratio] Comment on above: Order Comment: Specimen ashli ection performed by [employer]: [email or web address] Performed By: #### GLUPO ### # [address] [address] Platelets (Bld) [#/Vol] 175 10*3/uL Normal 150 - 450 [facility] Comment on above: Order Comment: Specimen ashli ection performed by [employer]: [email or web address] Performed By: #### GLUPO ### # [address] [address] RBC (Bld) [#/Vol] 3.06 x10E12/L Low 4.50 - 5.90 [facility] Comment on above: Order Comment: Specimen ashli ection performed by [employer]: [email or web address] Performed By: #### GLUPO ### # [address] [address] WBC (Bld) [#/Vol] 10.7 10*3/uL Normal 4.4 - 11.3 [facility] Comment on above: Order Comment: Specimen ashli ection performed by [employer]: [email or web address] Performed By: #### GLUPO ### # [address] [address] Daily Progress Note-Cardiology on 02-03-2020 Daily Progress Service: Cardiology Normal Par wy Note-Cardiology Medical [facility] Subjective Data: JAGRUTI RAMIREZ is a 74 year old Male who is Hospital Day # 5. Additional Information: Denies complaints. Somewhat confused. Objective Data: Objective Information: T PRBPSpO2 [id number]% Date/Time02/02 7: 7: 4: 7: 7:27 Range(36C - 37.2C ) (60 - 113 ) (18 - 19 ) (101 - 148 )/ (55 - 74 ) (93% - 97% ) Highest temp of 37.2 C was recorded at 02/01 12:08 Pain reported at 02/01 20:55: 0 = None ---- Intake and Output ----- Mn/Dy/Year TimeIntakeOutputNet Feb 03, 2020 6:00 [id number] Feb 02, 2020 10:00 [id number] Feb 02, 2020 2:00 pm000 The Intake and Output Totals for the last 24 hours are : IntakeOutputNet [id number] Is alert and oriented x2 no distress nec k no JVP lungs are clear heart regular rhythm occasional ectopy 2-3 over 6 high-pitched crescendo decrescendo systolic murmur left lower sternal orlando rder to the right upper sternal border abdomen soft extremities no edema Medication: Medications: Continuous Medications 1. Dextrose 5% in Water Infusion: 1000 mL IntraVenous Scheduled Medications 1. Ampicillin - Sulbactam 3 gm/NaCL 0.9% IVPB Soln 100 mL: 3 gram(s) IntraVenous Piggyback Every 12 Hours 2. diazePAM (VALIUM): 2.5 mg Oral Every 6 Hours 3. Enoxaparin SubCutaneous: 40 mg SubCutaneous Every 2 4 Hours 4. Folic Acid: 1 mg Oral Daily 5. Insulin Glargine (Lantus) Injectable: 6 unit(s) Sub Cutaneous 2 Times a Day 6. Insulin Lispro Mild Corrective Scale: unit(s) SubCu taneous Every 4 Hours 7. Metoprolol Tartrate: 50 mg Oral 2 Times a Day 8. Multivitamin with Minerals: 1 tablet(s) Oral Daily 9. Pantoprazole: 40 mg Oral Daily 10. Sodium Chloride 0.9% Injectable Flush: 10 mL Intra Venous Flush Every 12 Hours 11. Tamsulosin: 0.4 mg Oral Daily 12. Thiamine: 500 mg Oral Daily 13. Valproic Acid (Depakene): 1000 mg Oral Every 12 Ho urs PRN Medications 1. Dextrose 50% in Water Injectable: 25 gram(s) IntraV enous Push Every 15 Minutes 2. Glucagon Injectable: 1 mg IntraMuscular Every 15 Mi nutes 3. Heparin Flush 10 unit/ mL PF Injectable: 5 mL Intra Venous Flush Every 12 Hours 4. Heparin Flush 10 unit/ mL PF Injectable PRN: 5 mL I ntraVenous Flush According to Flush Policy 5. Lidocaine 1% Injectable (PICC KIT): 1 mL IntraDerma l Once 6. LORazepam Injectable: 1 mg IntraVenous Push Every 6 Hours 7. Sodium Chloride 0.9% Injectable Flush PRN: 10 mL In traVenous Flush According to Flush Policy 8. Sodium Chloride 0.9% Injectable Flush PRN: 20 mL In traVenous Flush According to Flush Policy Conditional Medication Orders 1. Perflutren Lipid Microsphere (Activated) 1.3 mL / N aCL 0.9% T.V. 10 mL Injectable: 0.5 mL IntraVenous Push Once Recent Lab Results: Results: I have reviewed these laboratory results: Calcium, Ionized Level 03-Feb-2020 07:51:00 ResultValue Calcium, Ionized Level 1.06 L Glucose_POCT 03-Feb-2020 07:28:00 ResultValue Glucose-POCT 109 H Assessment and Plan: Code Status: Code StatusDNAR with Added Limitations Assessment: Past medical history: 1. Type 2 diabetes 2. Hypertension 3. History of alcoholism 4. Kidney issues 01/31/2020 1. Elevated troponin. Most likely due to demand ischemia rather than an acute coronary syndrome. No symptoms of angina. He has signi ficant rhabdomyolysis likely related to being found on the floor becau se of alcohol intake. We will start 1 baby aspirin daily. Statins if his liver enzymes tolerated. He was on atorvastatin prior to coming in. 2. Possible ventricular tachycardia. I see no evidence of this. I do not have the strips from [place]. He has normal LV funct ion on his echo. Discontinue IV amnio. 3. Aortic stenosis. At least moderate. No specific the rapy is required at this time. 4. Hypertension. Currently his blood pressures are sammie sonably well controlled. At home he was on enalapril and hydrochlor othiazide along with metoprolol. Reinitiating metoprolol would be reasonabl e rather than amiodarone. Thanks for this consult I will follow along with you. 02/01/2020 1. Elevated troponin. Type II myocardial infarction. C ontinue aspirin. 2. Wide-complex tachycardia possible ventricular tachy cardia [facility]. No recurrence here. Off IV amnio. Continue b eta-blockers. LV function is normal. 3. Aortic stenosis. Moderate. No specific therapy requ ired. 02/02/2020 1. Elevated troponin. Type II myocardial infarction du e to demand. Continue antiplatelet therapy with aspirin. 2. Wide-complex tachycardia while at [facility] l. No recurrence on telemetry. Off IV amnio. Continue beta-blockers. LV fu nction is normal. 3. Moderate aortic stenosis. This will be monitored. 4. Hypokalemia and hypomagnesemia. Both of these will be repleted. 02/03/2020 1. Elevated troponin due to a type II myocardial infar ction. He is on antiplatelet therapy with aspirin and doing well. 2. Runs of wide-complex tachycardia. Initially on amio darone at [facility]. On telemetry he has intermittent tachy cardia. He does have 3-5 beat salvos of wide-complex tachycardia. He h as normal LV function and therefore no specific therapy is required. I will increase th e dose of his metoprolol from 25-50 twice daily. 2. Aortic stenosis. This was moderately severe. This w ill be monitored peripherally. Electronic Signatures: Donya Elias) (Signed 03-Feb-2020 10:40) Authored: Service, Subjective Data, Objective Da ta, Assessment and Plan, Note Completion Last Updated: 03-Feb-2020 10:40 by Donya Elias) Daily Progress Note-General Internal Med orquidea on 02-03-2020 Daily Progress Service: General Internal Medicine Normal [facility] Note-General Internal Medica [facility] Medicine Subjective Data: JAGRUTI RAMIREZ is a 74 year old Male who is Hospital Day # 5. Additional Information: No events overnight. Seen and examined at bedside. No acute complaints. Objective Data: Objective Information: T PRBPSpO2 [id number]/5395% Date/Time02/02 11: 11: 11: 11:201 04/05 11:20 Range(35.8C - 37C ) (60 - 106 ) (18 - 18 ) (101 - 148 )/ (53 - 74 ) (93% - 97% ) Highest temp of 37 C was recorded at 02/01 20:00 Pain reported at 02/01 20:55: 0 = None ---- Intake and Output ----- Mn/Dy/Year TimeIntakeOutputNet Feb 03, 2020 2:00 [id number] Feb 03, 2020 6:00 [id number] Feb 02, 2020 10:00 [id number] The Intake and Output Totals for the last 24 hours are : IntakeOutputNet [id number] Physical Exam Narrative: Physical Exam: General appearance: overweight, chronically ill appear ing, not in pain or distress, abraisons on forehead HEENT: Atraumatic/normocephalic, EOMI, MIGUEL Neck: Supple, no jugular venous distension, lymphadeno edmund Respiratory: Equal normal breath sounds, no wheezing, no crackles and no tenderness over ribs Cardiovascular: Normal S1, S2, regular rate and rhythm , no murmur, rub or gallop Abdomen: Normal sounds present, soft, lax with no tend erness, and no masses Extremities: No edema. Pulses are equally present. Skin: intact, no rashes Neurologic: Alert and oriented x 2, No focal deficit, lethargic Recent Lab Results: Results: CBC: 02/03/2020 11:12 \ Hgb / \ 10.7 L / WBC Plt 10.7 175 / Hct \ / 32.6 L \ RBC: 3.06 L MCV: 107 H BMP: 02/03/2020 11:12 NA+ Cl- BUN / 137 103 11 / Glucose 144 H K+ HCO3- Creat \ 3.6 26 0.67 \ Calcium : 7.6 L Anion Gap : 12 Assessment and Plan: Code Status: Code StatusDNAR with Added Limitations Assessment: 74 y/o M with CAD presenting with rhabdomyolysis after being down for 2 days. Believed to be result of polypharmacy and possible OD. #acute metabolic encephalopathy #alcohol abuse #polypharmacy #hx of TIA -tox screen negative -withdrawal protocol with scheduled valium, ativan PRN , and valproic acid -D/c gabapentin, topamax -vitamins with folic acid and multivitamin -monitor neuro status #aspiration PNA #Severe sepsis without shock - resolved #hypoxia -wean down O2 as tolerated -obtain speech eval due to likely aspiration -unasyn, day 3 -elevate HOB to 30 degrees #rhamdomyolysis #Metabolic Acidosis #KEN -was on ground for 2+ days -elevated CK, trend -trend CMP -replete K+, Phos, Mg as needed #type II mI, troponinemia #HTN #CAD -continue IVF rescuitation, lactate normal -trend troponin, downtrending -obtain echo -cardio following appreciate recommendations, continue BB, amio ggt discontinued -elevated troponin likely demand ischemia secondary to acidosis and rhabdomyolysis -Increased beta jodi 02/02 #hyperglycemia -ISS -lantus 6 BID DVT ppx Devaughn Shea DO Electronic Signatures: Devaughn Shea) (Signed 03-Feb-2020 14:31) Authored: Service, Subjective Data, Objective Da ta, Assessment and Plan, Note Completion Last Updated: 03-Feb-2020 14:31 by Devaughn Shea () GLUCOSE-POCT on 01-17 Glucose [Mass/Vol] 133 mg/dL High 74 - 99 [facility] Comment on above: Performed By: #### TROP2 ### # [facility] [address] [place] [address] Glucose [Mass/Vol] 112 mg/dL High 74 - 99 [facility] Comment on above: Performed By: #### CBC #### [facility] [address] [place] [address] Glucose [Mass/Vol] 109 mg/dL High 74 - 99 [facility] Comment on above: Performed By: #### PHOS #### [facility] [address] [place] [address] Glucose [Mass/Vol] 131 mg/dL High 74 - 99 [facility] Comment on above: Performed By: #### PHOS #### [facility] [address] [place] [address] Glucose [Mass/Vol] 130 mg/dL High 74 - 99 [facility] Comment on above: Performed By: #### CMP #### [address] [address] Glucose [Mass/Vol] 185 mg/dL High 74 - [address] [place] [address] Comment on above: Performed By: #### GLUPO ### # [facility] [address] [place] [address] MAGNESIUM on 020 Magnesium [Mass/Vol] 1.91 mg/dL Normal 1.60 - 2.40 [facility] Comment on above: Order Comment: Specimen ashli ection performed by [employer]: [email or web address] Performed By: #### MG ####[facility] [place] [address] MYCOPLASMA IGM AB on 02-03-2020 MYCOPLASMA IGM AB 0.11 U/L Normal <=0.76 [facility] Comment on above: Result Comment: INTERPRETIVE INFORMATION: Mycoplasma pneumoniae Ab, IgM 0.76 U/L or less .......... Negative: No clinically significant amount of M. pneumoniae IgM antibody detected. 0.77 - 0.95 U/L ........... Low Positive: M. pneumoniae- specific IgM presumptively detected. Collection of a follow-up sample in 1-2 weeks is recommended to assure reactivity. 0.96 U/L or greater ....... Positive: Highly significant amount of M. pneumoniae- specific IgM antibody detected. However, low level s of IgM antibodies may occasionally persist for mor e than 12 months post-infectio n. Performed By: [facility] [address] [place] [address] Laminating Machine Tender: Olga Lidia Bell MD Performed By: #### PHOS #### [facility] [address] [place] [address] PHOSPHORUS on 2019 Phosphate [Mass/Vol] 2.2 mg/dL Low 2.5 - 4.9 [facility] Comment on above: Order Comment: Specimen ashli ection performed by [employer]: [email or web address] Result Comment: The performa nce characteristics of phosphorus testing in heparinized plasma have been validated by the individual laboratory site where bhargavi ting is performed. Testing on heparinized plasma is not approved by the FDA; however, such approval is no t necessary. Performed By: #### PHOS #### [facility] [address] [place] [address] CALCIUM, IONIZED on 02-02-2020 CALCIUM, IONIZED 1.04 mmol/L Low 1.10 - 1.33 [facility] Comment on above: Result Comment: The performa nce characteristics of ionized calcium tested in heparinized plasma or ser um have been validated by the individual laboratory sit e where testing is performed. Testing on heparinized plasm a or serum is not approved by the FDA; however, such appro blaire is not necessary. Performed By: #### CMP #### [facility] [address] [place] [address] CBC AND DIFFERENTIAL on 02-02-2020 % AUTOMATED IMMATURE GRAN 0.4 % Normal 0.0 - 0.9 [facility] Comment on above: Result Comment: Immature Gra nulocyte Count (IG) includes promyelocytes, myelocytes and metamyelocyte s but does not include bands. Percent differential counts (%) should be interpreted in the context of the absolute cell counts (cells/L). Performed By: #### PHOS #### [facility] [address] [place] [address] Basophils (Bld) [#/Vol] 0.01 10*3/uL Normal 0.00 - 0.10 [facility] Comment on above: Performed By: #### PHOS #### [address] [address] Basophils/100 WBC (Bld) 0.1 % Normal 0.0 - 2.0 [facility] Comment on above: Performed By: #### PHOS #### [address] [address] Eosinophils (Bld) [#/Vol] 0.03 10*3/uL Normal 0.00 - 0.40 [facility] Comment on above: Performed By: #### PHOS #### [address] [address] Eosinophils/100 WBC (Bld) 0.3 % Normal 0.0 - 6.0 [facility] Comment on above: Performed By: #### PHOS #### [address] [address] Erythrocyte distribution width 13.9 % Normal 11.5 - 14. 5 [facility] (RBC) [Ratio] Comment on above: Performed By: #### PHOS #### [address] [address] Hematocrit (Bld) [Volume fraction] 31.5 % Low 41.0 - 52.0 [facility] Comment on above: Performed By: #### PHOS #### [address] [address] Hemoglobin (Bld) [Mass/Vol] 10.4 g/dL Low 13.5 - 17.5 [facility] Comment on above: Performed By: #### PHOS #### [address] [address] Lymphocytes (Bld) [#/Vol] 0.46 10*3/uL Low 0.80 - 3.00 [facility] Comment on above: Performed By: #### PHOS #### [address] [address] Lymphocytes/100 WBC (Bld) 4.9 % Normal 13.0 - 44.0 [facility] Comment on above: Performed By: #### PHOS #### [facility] [address] [place] [address], [place] [address] MCHC (RBC) [Mass/Vol] 33.0 g/dL Normal 32.0 - 36.0 [facility] Comment on above: Performed By: #### PHOS #### [facility] [address] [place] [address], [place] [address] MCV (RBC) [Entitic vol] 108 fL High 80 - 100 [facility] Comment on above: Performed By: #### PHOS #### [address] [place] [address] Monocytes (Bld) [#/Vol] 0.54 10*3/uL Normal 0.05 - 0.80 [facility] Comment on above: Performed By: #### PHOS #### [address] [place] [address] Monocytes/100 WBC (Bld) 5.7 % Normal 2.0 - 10.0 [facility] Comment on above: Performed By: #### PHOS #### [address] [place] [address] Neutrophils (Bld) [#/Vol] 8.37 10*3/uL High 1.60 - 5.50 [facility] Comment on above: Performed By: #### PHOS #### [address] [place] [address] Neutrophils/100 WBC (Bld) 88.6 % Normal 40.0 - 80.0 [facility] Comment on above: Performed By: #### PHOS #### [address] [place] [address] Nucleated RBC/100 WBC (Bld) 0.3 /100 WBC Normal 0.0 - 0.0 [facility] [Ratio] Comment on above: Performed By: #### PHOS #### [address] [place] [address] Platelets (Bld) [#/Vol] 165 10*3/uL Normal 150 - 450 [facility] Comment on above: Performed By: #### PHOS #### [address] [address] RBC (Bld) [#/Vol] 2.91 x10E12/L Low 4.50 - 5.90 [facility] Comment on above: Performed By: #### PHOS #### [address] [address] WBC (Bld) [#/Vol] 9.5 10*3/uL Normal 4.4 - 11.3 [facility] Comment on above: Performed By: #### PHOS #### [address] [address] COAGULATION SCREEN o n 02-02-2020 aPTT Coag (Bld) [Time] 30 s Normal 25 - 35 [facility] Comment on above: Result Comment: THE APTT IS NO LONGER USED FOR MONITORING UNFRACTIONATED HEPARIN THERA PY. FOR MONITORING HEPARIN THERA PY, USE THE HEPARIN ASSAY. Performed By: #### GLUPO ### # [address] [address] INR Coag (PPP) [Relative time] 1.3 {INR} High 0.9 - 1.1 [facility] Comment on above: Performed By: #### GLUPO ### # [address] [address] PT Coag (PPP) [Time] 15.6 s High 10.1 - 13.3 [facility] Comment on above: Performed By: #### GLUPO ### # [address] [address] COMPREHENSIVE PANEL on 02-02-2020 Albumin [Mass/Vol] 2.1 g/dL Low 3.4 - 5.0 [facility] Comment on above: Performed By: #### CMP #### [address] [address] ALP [Catalytic activity/Vol] 71 U/L Normal 33 - 136 [facility] Comment on above: Performed By: #### CMP #### [address] [address] ALT [Catalytic activity/Vol] 83 U/L High 10 - 52 [facility] Comment on above: Result Comment: Patients juliet ated with Sulfasalazine may generate falsely decreased results fo r ALT. Performed By: #### CMP #### [address] [address] Anion gap [Moles/Vol] 8 mmol/L Low 10 - 20 [facility] Comment on above: Performed By: #### CMP #### [address] [address] AST [Catalytic activity/Vol] 165 U/L High 9 - 39 [facility] Comment on above: Performed By: #### CMP #### [address] [address] Bilirubin [Mass/Vol] 0.4 mg/dL Normal 0.0 - 1.2 [facility] Comment on above: Performed By: #### CMP #### [address] [address] Calcium [Mass/Vol] 7.4 mg/dL Low 8.6 - 10.3 [facility] Comment on above: Performed By: #### CMP #### [address] [address] Chloride [Moles/Vol] 106 mmol/L Normal 98 - 107 [facility] Comment on above: Performed By: #### CMP #### [address] [address] Creatinine [Mass/Vol] 0.63 mg/dL Normal 0.50 - 1.30 [facility] Comment on above: Performed By: #### CMP #### [address] [address] GFR- AM. >60 Normal >60 [facility] Comment on above: Result Comment: CALCULATIONS OF ESTIMATED GFR ARE PERFORMED USING THE MDRD STUDY EQUATIO N FOR THE IDMS-TRACEABLE CREATININE ME THODS. CLIN CHEM 2007;53:766-72 Performed By: #### CMP #### [address] [address] GFR-NON AM. >60 Normal >60 [facility] Comment on above: Performed By: #### CMP #### [facility] [facility] [address] [place] [address] Glucose [Mass/Vol] 86 mg/dL Normal 74 - 99 [facility] Comment on above: Performed By: #### CMP #### [facility] [address] [place] [address] HCO3 (Bld) [Moles/Vol] 31 mmol/L Normal 21 - 32 [facility] Comment on above: Performed By: #### CMP #### [address] [address] Potassium [Moles/Vol] 3.1 mmol/L Low 3.5 - 5.3 [facility] Comment on above: Performed By: #### CMP #### [address] [address] Protein [Mass/Vol] 4.1 g/dL Low 6.4 - 8.2 [facility] Comment on above: Performed By: #### CMP #### [address] [address] Sodium [Moles/Vol] 142 mmol/L Normal 136 - 145 [facility] Comment on above: Performed By: #### CMP #### [address] [place] [address] Urea nitrogen [Mass/Vol] 14 mg/dL Normal 6 - 23 [facility] Comment on above: Performed By: #### CMP #### [address] [address] CREATINE KINASE on 04-04-2019 CK [Catalytic activity/Vol] 3764 U/L High 0 - 325 [facility] Comment on above: Performed By: #### GLUPO ### # [address] [place] [address] Consult-Palliative Care on 02-02-2020 Consult-Palliative Care Service: Normal [facility] Service: Palliative Care [facility] Consult: Consult requested by (Attending Name): Jean Marie Shea Reason: Advanced Care Planning History of Present Illness: HPI: 77-year-old male with a past medical history of hypert ension, alcohol abuse, neuropathy, and hyperlipidemia who presented to the em ergency room for confusion. Work-up showed a severe sepsis secondary to pneumonia associated with an acute metabolic encephalopathy, nonsusta ined ventricular tachycardia, dehydration, rhabdomyolysis, and an acut e kidney injury. Patient was initially admitted to the intensive care unit. Sta rted on IV fluids and bicarbonate drip as well as as amiodarone infusion for rapid ventricula r rate. IV antibiotics were also initiated. Echocardiogram was done showing d iastolic CHF with moderate aortic stenosis. Patient was then transferred to the medical floor. Given the overall poor prognosis and und erlying comorbidities, palliative care consulted for advanced care planning. Upon encounter, patient is awake but drowsy. Oriented only to self. Not engaging appropriately in conversation. He does follow verbal commands. Denies having any pain. Denies any shortness of breath . ESAS Due to the compromised menta l status, I couldn't perform a review of systems on the patient. PAINAD 0 PPS: 40 % PMH as above Social: + ETOH use, tob use, THC, lives alone family:HTN, DM, STROKE in FATHER Rx:asa, atorva, enalapril, HCTZ, METOP ALL: PORK, mustard Allergies: NKDA: Pork: Unknown Mustard: Unknown Objective: Objective Information: T PRBPSpO2 [id number]/6493% Date/Time02/01 12:0802/01 12: 12: 12:081 04/04 12:08 Range(36C - 37.2C ) (97 - 114 ) (16 - 19 ) (108 - 155 )/ (51 - 64 ) (93% - 96% ) Highest temp of 37.2 C was recorded at 02/01 12:08 Physical Exam by System: Constitutional: awake/alert/oriented x1, not in acute distress, frail and cachectic, follows verbal commands, incoherent Eyes: PERRL, ENMT: normal hearing, dry mucous membrane Head/Neck: neck supple, no apparent injury, No JVD, tr achea midline Respiratory/Thorax: patent airways, clear to auscultat ion bilaterally, no crackles or wheezing or rhonchi Cardiovascular: regular, rate and rhythm, no murmurs, 2+ equal pulses of the extremities Gastrointestinal: nondistended, positive bowel sounds, soft, non-tender, no rebound tenderness or guarding, no masses palpable, no organomegaly Musculoskeletal: Muscle wasting Extremities: Edema in the upper extremities more on th e right than the left. Also right foot edema Neurological: Reflexes of the extremities are intact. Babinski negative. Because of patient's compromised mental status, I coul d not assess the sensory/motor/cerebellar systems as patient cannot fol low commands Psychological: Cannot assess Skin: Dry skin, pale color Medications: Medications: Continuous Medications 1. Dextrose 5% in Water Infusion: 1000 mL IntraVenous Scheduled Medications 1. Ampicillin - Sulbactam 3 gm/NaCL 0.9% IVPB Soln 100 mL: 3 gram(s) IntraVenous Piggyback Every 12 Hours 2. diazePAM (VALIUM): 2.5 mg Oral Every 6 Hours 3. Enoxaparin SubCutaneous: 40 mg SubCutaneous Every 2 4 Hours 4. Folic Acid: 1 mg Oral Daily 5. Gabapentin: 200 mg Oral 3 Times a Day 6. Insulin Glargine (Lantus) Injectable: 6 unit(s) Sub Cutaneous 2 Times a Day 7. Insulin Lispro Mild Corrective Scale: unit(s) SubCu taneous Every 4 Hours 8. Metoprolol Tartrate: 25 mg Oral 2 Times a Day 9. Multivitamin with Minerals: 1 tablet(s) Oral Daily 10. Pantoprazole: 40 mg Oral Daily 11. Sodium Chloride 0.9% Injectable Flush: 10 mL Intra Venous Flush Every 12 Hours 12. Tamsulosin: 0.4 mg Oral Daily 13. Thiamine: 500 mg Oral Daily 14. Topiramate: 25 mg Oral 2 Times a Day 15. Valproic Acid (Depakene): 1000 mg Oral Every 12 Ho urs PRN Medications 1. Dextrose 50% in Water Injectable: 25 gram(s) IntraV enous Push Every 15 Minutes 2. Glucagon Injectable: 1 mg IntraMuscular Every 15 Mi nutes 3. Heparin Flush 10 unit/ mL PF Injectable: 5 mL Intra Venous Flush Every 12 Hours 4. Heparin Flush 10 unit/ mL PF Injectable PRN: 5 mL I ntraVenous Flush According to Flush Policy 5. Lidocaine 1% Injectable (PICC KIT): 1 mL IntraDerma l Once 6. LORazepam Injectable: 1 mg IntraVenous Push Every 6 Hours 7. Sodium Chloride 0.9% Injectable Flush PRN: 10 mL In traVenous Flush According to Flush Policy 8. Sodium Chloride 0.9% Injectable Flush PRN: 20 mL In traVenous Flush According to Flush Policy Conditional Medication Orders 1. Perflutren Lipid Microsphere (Activated) 1.3 mL / N aCL 0.9% T.V. 10 mL Injectable: 0.5 mL IntraVenous Push Once Recent Lab Results: Results: I have reviewed these laboratory results: Coagulation Screen 02-Feb-2020 07:00:00 ResultValue Prothrombin Time, Plasma 15.6 H International Normalized Ratio, Plasma 1.3 H Activated Partial Thromboplastin Time 30 Complete Blood Count + Differential 02-Feb-2020 07:00: 00 ResultValue White Blood Cell Count 9.5 Nucleated Erythrocyte Count 0.3 Red Blood Cell Count 2.91 L HGB 10.4 L HCT 31.5 L MCV 108 H MCHC 33.0 PLT 165 RDW-CV 13.9 Neutrophil % 88.6 Immature Granulocytes % 0.4 Lymphocyte % 4.9 Monocyte % 5.7 Eosinophil % 0.3 Basophil % 0.1 Neutrophil Count 8.37 H Lymphocyte Count 0.46 L Monocyte Count 0.54 Eosinophil Count 0.03 Basophil Count 0.01 Comprehensive Metabolic Panel 02-Feb-2020 07:00:00 ResultValue Glucose, Serum 86 NA 142 K 3.1 L CL 106 Bicarbonate, Serum 31 Anion Gap, Serum 8 L BUN 14 CREAT 0.63 GFR-Non >60 GFR- >60 Calcium, Serum 7.4 L ALB 2.1 L ALKP 71 T Pro 4.1 L T Bili 0.4 Alanine Aminotransferase, Serum 83 H Aspartate Transaminase, Serum 165 H Calcium, Ionized Level 02-Feb-2020 07:00:00 ResultValue Calcium, Ionized Level 1.04 L Magnesium, Serum 02-Feb-2020 07:00:00 ResultValue Magnesium, Serum 1.92 Phosphorus, Serum 02-Feb-2020 07:00:00 ResultValue Phosphorus, Serum 1.7 L Creatine Kinase, Level 02-Feb-2020 07:00:00 ResultValue Creatine Kinase, Level 3764 H Assessment: 77-year-old male with a past medical history of hypert ension, alcohol abuse, neuropathy, and hyperlipidemia who presented to the em ergency room for confusion. Work-up showed a severe sepsis secondary to pneumonia associated with an acute metabolic encephalopathy, nonsusta ined ventricular tachycardia, dehydration, rhabdomyolysis, and an acut e kidney injury. Patient was initially admitted to the intensive care unit. Sta rted on IV fluids and bicarbonate drip as well as as amiodarone infusion for rapid ventricula r rate. IV antibiotics were also initiated. Echocardiogram was done showing d iastolic CHF with moderate aortic stenosis. Patient was then transferred to the medical floor. Given the overall poor prognosis and und erlying comorbidities, palliative care consulted for advanced care planning. I called the patient's daughter over the phone a nd gave her updates about the patient clinical condition. I did express concerns that patient lives by himself a t home and he is considered high risk now with his alcoholism and under lying comorbidities. Patient is not safe to go home anymore and lives by hi mself not until he regains his full consciousness if ever. I did explain to her that alcoholism can cause cognitive impairment and this could be irrev ersible. Also his current medical condition and the hospitalization is a ttributing to his encephalopathy. Therefore the next best step is to discharge the patient to a long-term facility and have a close follow-up wi th social services technician there and counselor if possible as well as with the physical therapy. Patient's CODE STATUS is DNR CCA Patient would highly benefit from follow-up with palli ative care at the facility Consult Status: Consult Order ID: [id number] Electronic Signatures: Asif uV) (Signed 12-Feb-2020 00:53) Authored: Service, History of Present Illness, Allergi es, Objective, Assessment/Recommendations, Note Completion Last Updated: 12-Feb-2020 00:53 by Asif Vu MD) Daily Progress Note-Cardiology on 02-02-2020 Daily Progress Service: Cardiology Normal [facility] Subjective Data: JAGRUTI RAMIREZ is a 74 year old Male who is Hospital Day # 4. Additional Information: He is awake he is alert. He is oriented x2. He d enies chest pain or pressure. He believes he is getting better. Objective Data: Objective Information: T PRBPSpO2 [id number]/6093% Date/Time02/01 8: 8: 3: 8: 8:00 Range(36C - 37C ) (97 - 114 ) (16 - 19 ) (108 - 155 )/ (51 - 60 ) (93% - 97% ) Highest temp of 37 C was recorded at 01/31 12:00 Pain reported at 01/31 20:06: 0 = None ---- Intake and Output ----- Mn/Dy/Year TimeIntakeOutputNet Feb 02, 2020 6:00 [id number] Feb 01, 2020 10:00 [id number] Feb 01, 2020 2:00 [id number] The Intake and Output Totals for the last 24 hours are : IntakeOutputNet [id number] Alert oriented x2 no distress neck no JV P lungs minimal crackles heart regular rhythm 3/6 high-pitched crescendo decrescendo systolic murmur left lower sternal border to the right upper sternal border abdom en soft extremities no edema Medication: Medications: Continuous Medications 1. Dextrose 5% in Water Infusion: 1000 mL IntraVenous Scheduled Medications 1. Ampicillin - Sulbactam 3 gm/NaCL 0.9% IVPB Soln 100 mL: 3 gram(s) IntraVenous Piggyback Every 12 Hours 2. diazePAM (VALIUM): 2.5 mg Oral Every 6 Hours 3. Enoxaparin SubCutaneous: 40 mg SubCutaneous Every 2 4 Hours 4. Folic Acid: 1 mg Oral Daily 5. Gabapentin: 200 mg Oral 3 Times a Day 6. Insulin Glargine (Lantus) Injectable: 6 unit(s) Sub Cutaneous 2 Times a Day 7. Insulin Lispro Mild Corrective Scale: unit(s) SubCu taneous Every 4 Hours 8. Metoprolol Tartrate: 25 mg Oral 2 Times a Day 9. Multivitamin with Minerals: 1 tablet(s) Oral Daily 10. Pantoprazole: 40 mg Oral Daily 11. Potassium Chloride Extended Release: 40 mEq Oral O nce 12. Sodium Chloride 0.9% Injectable Flush: 10 mL Intra Venous Flush Every 12 Hours 13. Tamsulosin: 0.4 mg Oral Daily 14. Thiamine: 500 mg Oral Daily 15. Topiramate: 25 mg Oral 2 Times a Day 16. Valproic Acid (Depakene): 1000 mg Oral Every 12 Ho urs PRN Medications 1. Dextrose 50% in Water Injectable: 25 gram(s) IntraV enous Push Every 15 Minutes 2. Glucagon Injectable: 1 mg IntraMuscular Every 15 Mi nutes 3. Heparin Flush 10 unit/ mL PF Injectable: 5 mL Intra Venous Flush Every 12 Hours 4. Heparin Flush 10 unit/ mL PF Injectable PRN: 5 mL I ntraVenous Flush According to Flush Policy 5. Lidocaine 1% Injectable (PICC KIT): 1 mL IntraDerma l Once 6. LORazepam Injectable: 1 mg IntraVenous Push Every 6 Hours 7. Sodium Chloride 0.9% Injectable Flush PRN: 10 mL In traVenous Flush According to Flush Policy 8. Sodium Chloride 0.9% Injectable Flush PRN: 20 mL In traVenous Flush According to Flush Policy Conditional Medication Orders 1. Perflutren Lipid Microsphere (Activated) 1.3 mL / N aCL 0.9% T.V. 10 mL Injectable: 0.5 mL IntraVenous Push Once Recent Lab Results: Results: CBC: 02/02/2020 07:00 \ Hgb / \ 10.4 L / WBC Plt 9.5 165 / Hct \ / 31.5 L \ RBC: 2.91 L MCV: 108 H Neutrophil %: 88.6 CMP: 02/02/2020 07:00 NA+ Cl- BUN / 142 106 14 / Glucose 86 K+ HCO3- Creat \ 3.1 L 31 0.63 \ \ T Bili / \ 0.4 / AST x ---- x ALT 165 Hx ---- x 83 H / Alk P \ / 71 \ Calcium : 7.4 L Anion Gap : 8 L Albumin : 2.1 L T Prot ein : 4.1 L Coagulation: 02/02/2020 07:00 PT / 15.6 H / -------< INR < 1.3 H PTT\ 30 \ Assessment and Plan: Code Status: Code StatusDNAR with Added Limitations Assessment: Past medical history: 1. Type 2 diabetes 2. Hypertension 3. History of alcoholism 4. Kidney issues 01/31/2020 1. Elevated troponin. Most likely due to demand ischemia rather than an acute coronary syndrome. No symptoms of angina. He has signi ficant rhabdomyolysis likely related to being found on the floor becau se of alcohol intake. We will start 1 baby aspirin daily. Statins if his liver enzymes tolerated. He was on atorvastatin prior to coming in. 2. Possible ventricular tachycardia. I see no evidence of this. I do not have the strips from [place]. He has normal LV funct ion on his echo. Discontinue IV amnio. 3. Aortic stenosis. At least moderate. No specific the rapy is required at this time. 4. Hypertension. Currently his blood pressures are sammie sonably well controlled. At home he was on enalapril and hydrochlor othiazide along with metoprolol. Reinitiating metoprolol would be reasonabl e rather than amiodarone. Thanks for this consult I will follow along with you. 02/01/2020 1. Elevated troponin. Type II myocardial infarction. C ontinue aspirin. 2. [facility] Off IV amnio. Continue b eta-blockers. LV function is normal. 3. Aortic stenosis. Moderate. No specific therapy requ ired. 02/02/2020 1. Elevated troponin. Type II myocardial infarction du e to demand. Continue antiplatelet therapy with aspirin. 2. Wide-complex tachycardia while at [facility]. No recurrence on telemetry. Off IV amnio. Continue beta-blockers. LV fu nction is normal. 3. Moderate aortic stenosis. This will be monitored. 4. Hypokalemia and hypomagnesemia. Both of these will be repleted. Electronic Signatures: Donya Elias) (Signed 02-Feb-2020 09:08) Authored: Service, Subjective Data, Objective Da ta, Assessment and Plan, Note Completion Last Updated: 02-Feb-2020 09:08 by Donya Elias) Daily Progress Note-General Internal Med [facility] on 02-02-2020 Daily Progress Service: General Internal Medicine Normal [facility] Note-General Internal Med[facility] Medicine Subjective Data: JAGRUTI RAMIREZ is a 74 year old Male who is Hospital Day # 4. Additional Information: Patient transferred out of ICU. Seen and examined at [facility]. No acute complaints. He is a poor historian and i s uncertain why he is in the hospital. He admits to drinking but states his last drink was a few days prior to falling. Objective Data: Objective Information: T PRBPSpO2 [id number]/6394% Date/Time02/01 17: 17:15104/04 17: 17:151 04/04 17:15 Range(36C - 37.2C ) (97 - 113 ) (16 - 19 ) (121 - 155 )/ (51 - 64 ) (93% - 95% ) Highest temp of 37.2 C was recorded at 02/01 12:08 ---- Intake and Output ----- Mn/Dy/Year TimeIntakeOutputNet Feb 02, 2020 2:00 pm000 Feb 02, 2020 6:00 [id number] Feb 01, 2020 10:00 [id number] The Intake and Output Totals for the last 24 hours are : IntakeOutputNet [id number] Physical Exam Narrative: Physical Exam: General appearance: overweight, chronically ill appear ing, not in pain or distress, abraisons on forehead HEENT: Atraumatic/normocephalic, EOMI, MIGUEL Neck: Supple, no jugular venous distension, lymphadeno edmund Respiratory: Equal normal breath sounds, no wheezing, no crackles and no tenderness over ribs Cardiovascular: Normal S1, S2, regular rate and rhythm , no murmur, rub or gallop Abdomen: Normal sounds present, soft, lax with no tend erness, and no masses Extremities: No edema. Pulses are equally present. Skin: intact, no rashes Neurologic: Alert and oriented x 2, No focal deficit, lethargic Recent Lab Results: Results: CBC: 02/02/2020 07:00 \ Hgb / \ 10.4 L / WBC Plt 9.5 165 / Hct \ / 31.5 L \ RBC: 2.91 L MCV: 108 H Neutrophil %: 88.6 CMP: 02/02/2020 07:00 NA+ Cl- BUN / 142 106 14 / Glucose 86 K+ HCO3- Creat \ 3.1 L 31 0.63 \ \ T Bili / \ 0.4 / AST x ---- x ALT 165 Hx ---- x 83 H / Alk P \ / 71 \ Calcium : 7.4 L Anion Gap : 8 L Albumin : 2.1 L T Prot ein : 4.1 L Coagulation: 02/02/2020 07:00 PT / 15.6 H / -------< INR < 1.3 H PTT\ 30 \ Assessment and Plan: Code Status: Code StatusDNAR with Added Limitations Assessment: 74 y/o M with CAD presenting with rhabdomyolysis after being down for 2 days. Believed to be result of polypharmacy and possible OD. #acute metabolic encephalopathy #alcohol abuse #polypharmacy #hx of TIA -tox screen negative -withdrawal protocol with sc heduled valium, ativan PRN, gabapentin, topamax and valproic acid -vitamins with folic acid and multivitamin -monitor neuro status #aspiration PNA #Severe sepsis without shock - resolved #hypoxia -wean down O2 as tolerated -obtain speech eval due to likely aspiration -unasyn, day 2 -elevate HOB to 30 degrees #rhamdomyolysis #Metabolic Acidosis #KEN -was on ground for 2+ days -elevated CK, trend -trend CMP -replete K+, Phos, Mg as needed #type II mI, troponinemia #HTN #CAD -continue IVF rescuitation, lactate normal -trend troponin, downtrending -obtain echo -cardio following appreciate recommendations, continue BB, amio ggt discontinued -elevated troponin likely demand ischemia secondary to acidosis and rhabdomyolysis #hyperglycemia -ISS -lantus 6 BID DVT ppx Devaughn Shea DO Electronic Signatures: Devaughn Shea () (Signed 02-Feb-2020 21:25) Authored: Service, Subjective Data, Objective Da ta, Assessment and Plan, Note Completion Last Updated: 02-Feb-2020 21:25 by Devaughn Shea () Daily Progress Note-Urology on 02-02-2020 Daily Progress Consult Type: subsequent visit/care urinary retentio n Normal [place] Note-Urology [facility] Service: Urology Subjective Data: JAGRUTI RAMIREZ is a 74 year old Male who is Hospital Day # 4. Appears to be more mobile today. tolerating the lopez catheter. Objective Data: Objective Information: T PRBPSpO2 [id number]/6093% Date/Time02/01 8: 8: 3:30104/04 8:00104/04 8:00 Range(36C - 37C ) (97 - 114 ) (16 - 19 ) (108 - 155 )/ (51 - 60 ) (93% - 97% ) Highest temp of 37 C was recorded at 01/31 12:00 Pain reported at 01/31 20:06: 0 = None ---- Intake and Output ----- Mn/Dy/Year TimeIntakeOutputNet Feb 02, 2020 6:00 [id number] Feb 01, 2020 10:00 [id number] Feb 01, 2020 2:00 [id number] The Intake and Output Totals for the last 24 hours are : IntakeOutputNet [id number] Physical Exam by System Constitutional: Well developed, awake, no distress, al ert and cooperative Gastrointestinal: soft , non-tender, non-distended Genitourinary: Lopez to CD with urine clear Psychological: Appropriate mood and behavior Recent Lab Results Results: CBC: 02/02/2020 07:00 \ Hgb / \ 10.4 L / WBC Plt 9.5 165 / Hct \ / 31.5 L \ RBC: 2.91 L MCV: 108 H Neutrophil %: 88.6 CMP: 02/02/2020 07:00 NA+ Cl- BUN / 142 106 14 / Glucose 86 K+ HCO3- Creat \ 3.1 L 31 0.63 \ \ T Bili / \ 0.4 / AST x ---- x ALT 165 Hx ---- x 83 H / Alk P \ / 71 \ Calcium : 7.4 L Anion Gap : 8 L Albumin : 2.1 L T Prot ein : 4.1 L Coagulation: 02/02/2020 07:00 PT / 15.6 H / -------< INR < 1.3 H PTT\ 30 \ Assessment and Plan: Code Status Code StatusDNAR with Added Limitations Impression 1: Rhabdomyolysis Plan for Impression 1: medically managed Impression 2: Type 2 diabetes mellitus Plan for Impression 2: Medically managed Impression 3: Urinary retention Plan for Impression 3: Lopez to CD with urine clear Continue flomax and maintain the lopez catheter. Consider Trial of void on Friday02/04/2020 Electronic Signatures for Addendum Section: Jagruti Washburn) (Signed Addendum 02-Feb-2020 18:22) Pt seen and examined and I agree with all the findings as written. Electronic Signatures: Chilango Gómez (PAC) (Signed 02-Feb-2020 10:26) Authored: Service, Subjective Data, Objective Da ta, Assessment and Plan, Note Completion Last Updated: 02-Feb-2020 18:22 by Jagruti Washburn) EMR ADDON on ADDON CONFIRMATION REQUEST REC'D Normal [facility] Comment on above: Performed By: #### CMP #### [facility] [address] [place] [address] GLUCOSE-POCT on 01-17 Glucose [Mass/Vol] 132 mg/dL High [address] [place] [address] Comment on above: Performed By: #### GLUPO ### #[facility] [place] [address] Glucose [Mass/Vol] 92 mg/dL Normal 74 - 99 [facility] Comment on above: Performed By: #### GLUPO ### # [facility] [address] [place] [address] Glucose [Mass/Vol] 85 mg/dL Normal [address] [place] [address] Comment on above: Performed By: #### GLUPO ### # [place] [address] [place] [address] Glucose [Mass/Vol] 125 mg/dL High - [address] [place] [address] Comment on above: Performed By: #### TROP2 ### # [place] [address] [place] [address] Glucose [Mass/Vol] 110 mg/dL High [address] [place] [address] Comment on above: Performed By: #### GLUPO ### # [facility] [address] [place] [address] Glucose [Mass/Vol] 115 mg/dL High - [address] [place] [address] Comment on above: Performed By: #### GLUPO ### #[place] [address] [place] [address] Glucose [Mass/Vol] 141 mg/dL High - [address] [place] [address] Comment on above: Performed By: #### CMP #### [place] [address] [place] [address] MAGNESIUM on Magnesium [Mass/Vol] 1.92 mg/dL Normal 1.60 - 2.40 [facility] Comment on above: Performed By: #### ALC #### [place] [address] [place] [address] PHOSPHORUS on 2019 Phosphate [Mass/Vol] 1.7 mg/dL Low 2.5 - 4.9 [facility] Comment on above: Result Comment: The performa nce characteristics of phosphorus testing in heparinized plasma have been validated by the individual laboratory site where bhargavi ting is performed. Testing on heparinized plasma is not approved by the FDA; however, such approval is no t necessary. Performed By: #### PHOS #### [address] [address] CALCIUM, IONIZED on 02-01-2020 CALCIUM, IONIZED 1.04 mmol/L Low 1.10 - 1.33 [facility] [place] Comment on above: Result Comment: The performa nce characteristics of ionized calcium tested in heparinized plasma or ser um have been validated by the individual laboratory sit e where testing is performed. Testing on heparinized plasm a or serum is not approved by the FDA; however, such appro blaire is not necessary. Performed By: #### IONC1 ### #[address] [address] CBC AND DIFFERENTIAL on 02-01-2020 % AUTOMATED IMMATURE GRAN 0.5 % Normal 0.0 - 0.9 [facility] Comment on above: Result Comment: Immature Gra nulocyte Count (IG) includes promyelocytes, myelocytes and metamyelocyte s but does not include bands. Percent differential counts (%) should be interpreted in the context of the absolute cell counts (cells/L). Performed By: #### CBCDF ### #[address] [address] Basophils (Bld) [#/Vol] 0.01 10*3/uL Normal 0.00 - 0.10 [facility] Comment on above: Performed By: #### CBCDF ### #[address] [address] Basophils/100 WBC (Bld) 0.1 % Normal 0.0 - 2.0 [facility] Comment on above: Performed By: #### CBCDF ### #[address] [address] Eosinophils (Bld) [#/Vol] 0.01 10*3/uL Normal 0.00 - 0.40 [facility] Comment on above: Performed By: #### CBCDF ### #[address] [address] Eosinophils/100 WBC (Bld) 0.1 % Normal 0.0 - 6.0 [facility] Comment on above: Performed By: #### CBCDF ### #[address] [address] Erythrocyte distribution width 14.2 % Normal 11.5 - 14. 5 [facility] (RBC) [Ratio] Comment on above: Performed By: #### CBCDF ### #[address] [address] Hematocrit (Bld) [Volume fraction] 33.3 % Low 41.0 - 52.0 [facility] Comment on above: Performed By: #### CBCDF ### #[address] [address] Hemoglobin (Bld) [Mass/Vol] 10.9 g/dL Low 13.5 - 17.5 [facility] Comment on above: Performed By: #### CBCDF ### #[address] [address] Lymphocytes (Bld) [#/Vol] 0.73 10*3/uL Low 0.80 - 3.00 [facility] Comment on above: Performed By: #### CBCDF ### #[address] [address] Lymphocytes/100 WBC (Bld) 5.8 % Normal 13.0 - 44.0 [facility] Comment on above: Performed By: #### CBCDF ### #[address] [address] MCHC (RBC) [Mass/Vol] 32.7 g/dL Normal 32.0 - 36.0 [facility] Comment on above: Performed By: #### CBCDF ### #[address] [address] MCV (RBC) [Entitic vol] 108 fL High 80 - 100 [facility] Comment on above: Performed By: #### CBCDF ### #[address] [address] Monocytes (Bld) [#/Vol] 0.84 10*3/uL High 0.05 - 0.80 [facility] Comment on above: Performed By: #### CBCDF ### #[facility] [place] [address] Monocytes/100 WBC (Bld) 6.7 % Normal 2.0 - 10.0 [facility] Comment on above: Performed By: #### CBCDF ### #[address] [address] Neutrophils (Bld) [#/Vol] 10.90 10*3/uL High 1.60 - 5.50 [facility] Comment on above: Performed By: #### CBCDF ### #[address] [address] Neutrophils/100 WBC (Bld) 86.8 % Normal 40.0 - 80.0 [facility] Comment on above: Performed By: #### CBCDF ### #[address] [address] Nucleated RBC/100 WBC (Bld) 0.2 /100 WBC Normal 0.0 - 0.0 [facility] [Ratio] Comment on above: Performed By: #### CBCDF ### #[facility] [place] [address] Platelets (Bld) [#/Vol] 183 10*3/uL Normal 150 - 450 [facility] Comment on above: Performed By: #### CBCDF ### #[address] [address] RBC (Bld) [#/Vol] 3.08 x10E12/L Low 4.50 - 5.90 [facility] Comment on above: Performed By: #### CBCDF ### #[facility] [place] [address] WBC (Bld) [#/Vol] 12.6 10*3/uL High 4.4 - 11.3 [facility] Comment on above: Performed By: #### CBCDF ### #[address] [address] COAGULATION SCREEN o n 02-01-2020 aPTT Coag (Bld) [Time] 30 s Normal 25 - 35 [facility] Comment on above: Result Comment: THE APTT IS NO LONGER USED FOR MONITORING UNFRACTIONATED HEPARIN THERA PY. FOR MONITORING HEPARIN THERA PY, USE THE HEPARIN ASSAY. Performed By: #### COAGS ### #[facility] [place] [address] INR Coag (PPP) [Relative time] 1.2 {INR} High 0.9 - 1.1 [facility] Comment on above: Performed By: #### COAGS ### #[facility] [place] [address] PT Coag (PPP) [Time] 14.5 s High 10.1 - 13.3 [facility] Comment on above: Performed By: #### COAGS ### #[address] [address] COMPREHENSIVE PANEL on 02-01-2020 Albumin [Mass/Vol] 2.3 g/dL Low 3.4 - 5.0 [facility] Comment on above: Performed By: #### ALC #### [facility] [address] [place] [address] ALP [Catalytic activity/Vol] 65 U/L Normal 33 - 136 [facility] Comment on above: Performed By: #### ALC #### [facility] [address] [place] [address] ALT [Catalytic activity/Vol] 70 U/L High 10 - 52 [facility] Comment on above: Result Comment: Patients juliet ated with Sulfasalazine may generate falsely decreased results fo r ALT. Performed By: #### ALC #### [facility] [address] [place] [address] Anion gap [Moles/Vol] 13 mmol/L Normal 10 - 20 [facility] Comment on above: Performed By: #### ALC #### [facility] [address] [place] [address] AST [Catalytic activity/Vol] 183 U/L High 9 - 39 [facility] Comment on above: Performed By: #### ALC #### [facility] [address] [place] [address] Bilirubin [Mass/Vol] 0.3 mg/dL Normal 0.0 - 1.2 [facility] Comment on above: Performed By: #### ALC #### [facility] [address] [place] [address] Calcium [Mass/Vol] 8.0 mg/dL Low 8.6 - 10.3 [facility] Comment on above: Performed By: #### ALC #### [address] [address] Chloride [Moles/Vol] 111 mmol/L High 98 - 107 [facility] Comment on above: Performed By: #### ALC #### [address] [address] Creatinine [Mass/Vol] 0.85 mg/dL Normal 0.50 - 1.30 [facility] Comment on above: Performed By: #### ALC #### [address] [address] GFR- AM. >60 Normal >60 [facility] Comment on above: Result Comment: CALCULATIONS OF ESTIMATED GFR ARE PERFORMED USING THE MDRD STUDY EQUATIO N FOR THE IDMS-TRACEABLE CREATININE ME THODS. CLIN CHEM 2007;53:766-72 Performed By: #### ALC #### [address] [address] GFR-NON AM. >60 Normal >60 [facility] Comment on above: Performed By: #### ALC #### [address] [address] Glucose [Mass/Vol] 139 mg/dL High 74 - 99 [facility] Comment on above: Performed By: #### ALC #### [address] [place] [address] HCO3 (Bld) [Moles/Vol] 29 mmol/L Normal 21 - 32 [facility] Comment on above: Performed By: #### ALC #### [address] [address] Potassium [Moles/Vol] 3.1 mmol/L Low 3.5 - 5.3 [facility] Comment on above: Performed By: #### ALC #### [address] [place] [address] Protein [Mass/Vol] 4.9 g/dL Low 6.4 - 8.2 [facility] Comment on above: Performed By: #### ALC #### [facility] [address] [place] [address] Sodium [Moles/Vol] 150 mmol/L High 136 - 145 [facility] Comment on above: Performed By: #### ALC #### [address] [address] Urea nitrogen [Mass/Vol] 29 mg/dL High 6 - 23 [facility] Comment on above: Performed By: #### ALC #### [address] [address] CREATINE KINASE on 1 04-03-2019 CK [Catalytic activity/Vol] 6045 U/L High 0 - 325 [facility] Comment on above: Performed By: #### CMP #### [address] [address] Consult on 0 Consult Service: Normal [facility] Service: Wound Care Consult: Consult requested by (Attending Name): Mt Villalobos Reason: multiple skin wounds History of Present Illness: HPI: JAGRUTI RAMIREZ is a 74 year old Male Allergies: NKDA: Pork: Unknown Mustard: Unknown Assessment: Patient has multiple abrasions covering body. All kiera sions show signs of healing at this time. Recommendations for all abrasion (except facial abrasi ons): Daily Irrigate with normal saline or wound cleanser. Apply Mepilex Border Dressing. Same mepilex may be reapplied up to 3 days unless soil ed. Patient reports a wound on the right lower calf but re fused evaluation, stating, I wish you wouldn' t, it still is very bruised. Education provided on reason for evaluation, but patient still states no. Wound location: Right hip Size: 4.5 x 4.5 cm Right upper calf Size: 10x4 cm Right elbow Size: 1.4 x 0.8 cm Right lower abdomen Size: 2.5 x 1.5 cm Left elbow Szie: 2 x 1.5 cm Left knee Size: 4.5 x 4.5 cm Undermining: none Tracking: none Wound type: abrasion Wound bed: 100% pink/red Drainage: scant serous Periwound skin: intact Recommendation for all wounds except facial: Every oth er day Irrigate with normal saline or wound cleanser. Apply Mepilex Border dressing. Same dressing may be used for up to 4 days unless soil ed. Facial wounds measure approximately 10x6 cm with areas of epithelialization present Area is covered with eschar/scabbed. No need f or a dressing on these wounds. Please review recommendation. If you agree with this r ecommendation, please enter as wound orders in EMR. Thank you. Please notify wound nurse if further need of ass essment this admission or for concern, new order or deterioration. Opal Gaitan RN - Wound/Ostomy Nurse - Ext: [phone] Pager: [phone] Consult Status: Consult Order ID: [id number] Electronic Signatures: Opal Gaitan (NANCY) (Signed 01-Feb-2020 13:01) Authored: Service, History of Present Illness, Allergi es, Assessment/Recommendations, Note Completion Last Updated: 01-Feb-2020 13:01 by Summer Gaitan (NANCY) Consult-Urology on 04-03-2019 Consult-Urology Service: Normal [facility] ica Service: Urology Center Consult Consult requested by (Attending Name): [place] Villalobos Reason: urinary retention History of Present Illness: HPI: JAGRUTI RAMIREZ is a 74 year old Male who has a PMHx of HTN, HLP, ETOH use, neuropathy, lives alone, ambulates using a walke r, presented to the Emergency department after being found on the floor for several days. Last evening he was found to be in urinary retention and a lopez edil ter was placed. 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 Review Family/Social History and ROS: Incomplete ROS: patient's im paired mental status, family not present to provide Allergies: NKDA: Pork: Unknown Mustard: Unknown Objective: Objective Information: T PRBPSpO2 [id number]/6097% Date/Time01/31 12: 12: 12: 12:001 04/03 12:00 Range(36.2C - 37C ) (68 - 97 ) (14 - 21 ) (114 - 142 ) / (53 - 81 ) (94% - 99% ) As of 01-Feb-2020 04:00:00, patient is o n 2 L/min of oxygen via nasal cannula. Highest temp of 37 C was recorded at 01/31 12:00 Physical Exam by System Constitutional: Well developed, awake, no distress, al ert and cooperative Gastrointestinal: soft, non-tender and non-distended Genitourinary: No Discharge, vesicles or other abnorma lities lopez to CD with urine clear Psychological: Appropriate mood and behavior Medications Medications: Continuous Medications 1. Dextrose 5% in Water Infusion: 1000 mL IntraVenous Scheduled Medications 1. Ampicillin - Sulbactam 3 gm/NaCL 0.9% IVPB Soln 100 mL: 3 gram(s) IntraVenous Piggyback Every 12 Hours 2. diazePAM (VALIUM): 2.5 mg Oral Every 6 Hours 3. Enoxaparin SubCutaneous: 40 mg SubCutaneous Every 2 4 Hours 4. Folic Acid: 1 mg Oral Daily 5. Gabapentin: 200 mg Oral 3 Times a Day 6. Insulin Glargine (Lantus) Injectable: 6 unit(s) Sub Cutaneous 2 Times a Day 7. Insulin Lispro Mild Corrective Scale: unit(s) SubCu taneous Every 4 Hours 8. Metoprolol Tartrate: 25 mg Oral 2 Times a Day 9. Multivitamin with Minerals: 1 tablet(s) Oral Daily 10. Pantoprazole: 40 mg Oral Daily 11. Sodium Chloride 0.9% Injectable Flush: 10 mL Intra Venous Flush Every 12 Hours 12. Tamsulosin: 0.4 mg Oral Daily 13. Thiamine: 500 mg Oral Daily 14. Topiramate: 25 mg Oral 2 Times a Day 15. Valproic Acid (Depakene): 1000 mg Oral Every 12 Ho urs PRN Medications 1. Dextrose 50% in Water Injectable: 25 gram(s) IntraV enous Push Every 15 Minutes 2. Glucagon Injectable: 1 mg IntraMuscular Every 15 Mi nutes 3. Heparin Flush 10 unit/ mL PF Injectable: 5 mL Intra Venous Flush Every 12 Hours 4. Heparin Flush 10 unit/ mL PF Injectable PRN: 5 mL I ntraVenous Flush According to Flush Policy 5. Lidocaine 1% Injectable (PICC KIT): 1 mL IntraDerma l Once 6. LORazepam Injectable: 1 mg IntraVenous Push Every 6 Hours 7. Sodium Chloride 0.9% Injectable Flush PRN: 10 mL In traVenous Flush According to Flush Policy 8. Sodium Chloride 0.9% Injectable Flush PRN: 20 mL In traVenous Flush According to Flush Policy Conditional Medication Orders 1. Perflutren Lipid Microsphere (Activated) 1.3 mL / N aCL 0.9% T.V. 10 mL Injectable: 0.5 mL IntraVenous Push Once Recent Lab Results Results: I have reviewed these laboratory results: Coagulation Screen 01-Feb-2020 04:34:00 ResultValue Prothrombin Time, Plasma 14.5 H International Normalized Ratio, Plasma 1.2 H Activated Partial Thromboplastin Time 30 Complete Blood Count + Differential 01-Feb-2020 04:34: 00 ResultValue White Blood Cell Count 12.6 H Nucleated Erythrocyte Count 0.2 Red Blood Cell Count 3.08 L HGB 10.9 L HCT 33.3 L MCV 108 H MCHC 32.7 PLT 183 RDW-CV 14.2 Neutrophil % 86.8 Immature Granulocytes % 0.5 Lymphocyte % 5.8 Monocyte % 6.7 Eosinophil % 0.1 Basophil % 0.1 Neutrophil Count 10.90 H Lymphocyte Count 0.73 L Monocyte Count 0.84 H Eosinophil Count 0.01 Basophil Count 0.01 Comprehensive Metabolic Panel 01-Feb-2020 04:34:00 ResultValue Glucose, Serum 139 H NA 150 H K 3.1 L CL 111 H Bicarbonate, Serum 29 Anion Gap, Serum 13 BUN 29 H CREAT 0.85 GFR-Non >60 GFR- >60 Calcium, Serum 8.0 L ALB 2.3 L ALKP 65 T Pro 4.9 L T Bili 0.3 Alanine Aminotransferase, Serum 70 H Aspartate Transaminase, Serum 183 H Radiology Results Results: Conclusion: CONCLUSIONS: 1. The left ventricular systolic function is normal wi th a 70-75% estimated ejection fraction. 2. Spectral Doppler shows an impaired relaxation patte rn of left ventricular diastolic filling. 3. There is moderate concentric left ventricular hyper trophy. 4. Slightly elevated RVSP. 5. Possible bicuspid AV with Moderate AVmax 2.8m/s Peak/mean gradient 30/17mmHg FRANSICO 1.3cm2. 6. There is mild to moderate aortic valve regurgitatio n. QUANTITATIVE DATA SUMMARY: 2D MEASUREMENTS: Normal Ranges: LAs: 3.87 cm (2.7-4.0cm) RVIDd: 3.40 cm (0.9-3.6cm) IVSd: 1.65 cm (0.6-1.1cm) LVPWd: 1.53 cm (0.6-1.1cm) LVIDd: 4.11 cm (3.9-5.9cm) LVIDs: 1.91 cm LV Mass Index: 161.9 g/m2 LV % FS 53.6 % LA VOLUME: Normal Ranges: LA Area A4C: 19.9 cm2 LA Area A2C: 18.9 cm2 LA Volume Index: 35.8 ml/m2 LA Vol A4C: 51.0 ml LA Vol A2C: 53.0 ml RA VOLUME BY A/L METHOD: Normal Ranges: RA Area A4C: 15.0 cm2 M-MODE MEASUREMENTS: Normal Ranges: LAs: 4.58 cm (2.7-4.0cm) LV SYSTOLIC FUNCTION BY 2D PLANIMETRY (MOD): Normal Ranges: EF-A4C View: 69.9 % (>55%) EF-A2C View: 81.9 % EF-Biplane: 75.3 % LV DIASTOLIC FUNCTION: Normal Ranges: MV lateral e' 0.08 m/s MV medial e' 0.06 m/s MV A Dur: 186.85 msec AORTIC VALVE: Normal Ranges: AoV Vmax: 2.76 m/s (<1.7m/s) AoV Peak P.4 mmHg (<20mmHg) AoV Mean P.1 mmHg (1.7-11.5mmHg) LVOT Max Roney: 1.18 m/s (<1.1m/s) AoV VTI: 61.72 cm (18-25cm) LVOT VTI: 26.13 cm LVOT Diameter: 2.00 cm (1.8-2.4cm) AoV Area, VTI: 1.33 cm2 (2.5-5.5cm2) AoV Area,Vmax: 1.35 cm2 (2.5-4.5cm2) AoV Dimensionless Index: 0.42 AORTIC INSUFFICIENCY: AI Vmax: 3.95 m/s AI Half-time: 402 msec AI Decel Time: 1386 msec AI Decel Rate: 286.00 cm/s2 RIGHT VENTRICLE: RV 1 3.4 cm RV 2 2.9 cm RV 3 7.0 cm TAPSE: 32.0 mm RV s' 0.19 m/s TRICUSPID VALVE/RVSP: Normal Ranges: Peak TR Velocity: 2.69 m/s RV Syst Pressure: 32.0 mmHg (< 30mmHg) AORTA: Asc Ao Diam 2.70 cm [id number] Donya Elias MD Electronically signed on 01/31/2020 at 8:25:07 PM Final Echocardiogram [Jan 31 2020 8:25PM] Impression: 1. Redemonstration of subtle lucency in the right lung base as noted on concurrent chest x-ray. As noted previously finding s may relate to right basilar atelectasis and/or pneumonia however cor relate with symptomatology and if there is concern for pneumoperit oneum decubitus views or further evaluation with CT can be considered. Xray Abdomen AP View [Jan 31 2020 6:58PM] Impression: 1. Bibasilar atelectasis. The configuration of this on the right this is felt to account for curvilinear lucency, but a n abdominal series would be recommended to exclude free air if the re is referable abdominal symptomatology. An orange criticalfinding was reported to the ordering clinician after failed phone call attempts through [employer] report ing system at the time of dictation. Xray Chest 1 View [Jan 31 2020 3:04PM] Consult Status Consult Order ID: [id number] Problem/Assessment/Plan Impression 1: Rhabdomyolysis Plan for Impression 1: medically managed Impression 2: Type 2 diabetes mellitus Plan for Impression 2: Medically managed Impression 3: Urinary retention Plan for Impression 3: Ellis nue flomax and maintain the lopez catheter. I spoke with the CC team and the pat ient will be DC with the lopez catheter and F/U for trial of void. Thank you for allowing us to participate in his care. Electronic Signatures for Addendum Section: Juan Lott) (Signed Addendum 01-Feb-2020 12 :59) Patient seen and agree with Physician [employer] note a nd plan. Electronic Signatures: Chilango Gómez (PAC) (Signed 01-Feb-2020 12:52) Authored: Service, History of Present Illness, Review Family/Social History and ROS, Allergies, Objective, Assessment/Recommendati ons, Note Completion Last Updated: 01-Feb-2020 12:59 by Juan Lott MD) Daily Progress Note-Cardiology on 02-01-2020 Daily Progress Service: Cardiology Normal [facility] Subjective Data: JAGRUTI RAMIREZ is a 74 year old Male who is Hospital Day # 3. Additional Information: The patient is confused. He denies chest pain or press ure. Objective Data: Objective Information: T PRBPSpO2 [id number]% Date/Time01/31 8: 4: 4: 4: 4:00 Range(36.2C - 36.8C ) (67 - 86 ) (14 - 21 ) (104 - 138 )/ (53 - 81 ) (92% - 99% ) As of 01-Feb-2020 04:00:00, patient is o n 2 L/min of oxygen via nasal cannula. Pain reported at 01/30 15:45: 0 Pain reported at 01/31 4:00: 0 = None ---- Intake and Output ----- Mn/Dy/Year TimeIntakeOutputNet Feb 01, 2020 6:00 [id number] Jan 31, 2020 10:00 [id number] Jan 31, 2020 2:00 [id number] The Intake and Output Totals for the last 24 hours are : IntakeOutputNet [id number] He is alert and oriented x2 HEENT notable for scars on his forehead neck no JVP lungs are clear heart regular rhythm 3/6 high-pitched crescendo decrescendo systolic murmur left lower sternal border to the right upper sternal border abdomen is soft extremities no edema Medication: Medications: Continuous Medications 1. Dextrose 5% in Water Infusion: 1000 mL IntraVenous Scheduled Medications 1. Ampicillin - Sulbactam 3 gm/NaCL 0.9% IVPB Soln 100 mL: 3 gram(s) IntraVenous Piggyback Every 12 Hours 2. diazePAM (VALIUM): 2.5 mg Oral Every 6 Hours 3. Enoxaparin SubCutaneous: 40 mg SubCutaneous Every 2 4 Hours 4. Folic Acid: 1 mg Oral Daily 5. Gabapentin: 200 mg Oral 3 Times a Day 6. Insulin Glargine (Lantus) Injectable: 6 unit(s) Sub Cutaneous 2 Times a Day 7. Insulin Lispro Mild Corrective Scale: unit(s) SubCu taneous Every 4 Hours 8. Metoprolol Tartrate: 25 mg Oral 2 Times a Day 9. Multivitamin with Minerals: 1 tablet(s) Oral Daily 10. Pantoprazole: 40 mg Oral Daily 11. Sodium Chloride 0.9% Injectable Flush: 10 mL Intra Venous Flush Every 12 Hours 12. Tamsulosin: 0.4 mg Oral Daily 13. Thiamine: 500 mg Oral Daily 14. Topiramate: 25 mg Oral 2 Times a Day 15. Valproic Acid (Depakene): 1000 mg Oral Every 12 Ho urs PRN Medications 1. Dextrose 50% in Water Injectable: 25 gram(s) IntraV enous Push Every 15 Minutes 2. Glucagon Injectable: 1 mg IntraMuscular Every 15 Mi nutes 3. Heparin Flush 10 unit/ mL PF Injectable: 5 mL Intra Venous Flush Every 12 Hours 4. Heparin Flush 10 unit/ mL PF Injectable PRN: 5 mL I ntraVenous Flush According to Flush Policy 5. Lidocaine 1% Injectable (PICC KIT): 1 mL IntraDerma l Once 6. LORazepam Injectable: 1 mg IntraVenous Push Every 6 Hours 7. Sodium Chloride 0.9% Injectable Flush PRN: 10 mL In traVenous Flush According to Flush Policy 8. Sodium Chloride 0.9% Injectable Flush PRN: 20 mL In traVenous Flush According to Flush Policy Conditional Medication Orders 1. Perflutren Lipid Microsphere (Activated) 1.3 mL / N aCL 0.9% T.V. 10 mL Injectable: 0.5 mL IntraVenous Push Once Recent Lab Results: Results: CBC: 02/01/2020 04:34 \ Hgb / \ 10.9 L / WBC Plt 12.6 H 183 / Hct \ / 33.3 L \ RBC: 3.08 L MCV: 108 H Neutrophil %: 86.8 CMP: 02/01/2020 04:34 NA+ Cl- BUN / 150 H 111 H 29 H / Glucose 139 H K+ HCO3- Creat \ 3.1 L 29 0.85 \ \ T Bili / \ 0.3 / AST x ---- x ALT 183 Hx ---- x 70 H / Alk P \ / 65 \ Calcium : 8.0 L Anion Gap : 13 Albumin : 2.3 L T Prote in : 4.9 L Coagulation: 02/01/2020 04:34 PT / 14.5 H / -------< INR < 1.2 H PTT\ 30 \ Radiology Results: Results: No Results have been selected. Please select Results f rom the Available Results list before marking as Reviewed. Conclusion: CONCLUSIONS: 1. The left ventricular systolic function is normal wi th a 70-75% estimated ejection fraction. 2. Spectral Doppler shows an impaired relaxation patte rn of left ventricular diastolic filling. 3. There is moderate concentric left ventricular hyper trophy. 4. Slightly elevated RVSP. 5. Possible bicuspid AV with Moderate AVmax 2.8m/s Peak/mean gradient 30/17mmHg FRANSICO 1.3cm2. 6. There is mild to moderate aortic valve regurgitatio n. Impression: 1. Redemonstration of subtle lucency in the right lung base as noted on concurrent chest x-ray. As noted previously finding s may relate to right basilar atelectasis and/or pneumonia however cor relate with symptomatology and if there is concern for pneumoperit oneum decubitus views or further evaluation with CT can be considered. Xray Abdomen AP View [Jan 31 2020 6:58PM] Impression: 1. Bibasilar atelectasis. The configuration of this on the right this is felt to account for curvilinear lucency, but a n abdominal series would be recommended to exclude free air if the re is referable abdominal symptomatology. An orange criticalfinding was reported to the ordering clinician after failed phone call attempts through [employer] report ing system at the time of dictation. Xray Chest 1 View [Jan 31 2020 3:04PM] Assessment and Plan: Code Status: Code StatusDNAR with Added Limitations Assessment: Past medical history: 1. Type 2 diabetes 2. Hypertension 3. History of alcoholism 4. Kidney issues 01/31/2020 1. Elevated troponin. Most likely due to demand ischemia rather than an acute coronary syndrome. No symptoms of angina. He has signi ficant rhabdomyolysis likely related to being found on the floor becau se of alcohol intake. We will start 1 baby aspirin daily. Statins if his liver enzymes tolerated. He was on atorvastatin prior to coming in. 2. Possible ventricular tachycardia. I see no evidence of this. I do not have the strips from [place]. He has normal LV funct ion on his echo. Discontinue IV amnio. 3. Aortic stenosis. At least moderate. No specific the rapy is required at this time. 4. Hypertension. Currently his blood pressures are sammie sonably well controlled. At home he was on enalapril and hydrochlor othiazide along with metoprolol. Reinitiating metoprolol would be reasonabl e rather than amiodarone. Thanks for this consult I will follow along with you. 02/01/2020 1. Elevated troponin. Type II myocardial infarction. C ontinue aspirin. 2. Wide-complex [facility] No [facility] here. Off IV amnio. Continue b eta-blockers. LV function is normal. 3. Aortic stenosis. Moderate. No specific therapy requ ired. Electronic Signatures: Donya Elias) (Signed 01-Feb-2020 10:21) Authored: Service, Subjective Data, Objective Da ta, Assessment and Plan, Note Completion Last Updated: 01-Feb-2020 10:21 by Donya Elias) Daily Progress Note-Critical Care on 02-01-2020 Daily Progress Service: Critical Care Normal [facility] Note-Critical Care Medical C enter Subjective Data: JAGRUTI RAMIREZ is a 74 year old Male who is Hospital Day # 3. Objective Data: Objective Information: T PRBPSpO2 [id number]% Date/Time01/31 8: 4: 4: 4: 4:00 Range(36.2C - 36.8C ) (67 - 86 ) (14 - 21 ) (104 - 138 )/ (53 - 81 ) (92% - 99% ) As of 01-Feb-2020 04:00:00, patient is o n 2 L/min of oxygen via nasal cannula. Pain reported at 01/30 15:45: 0 Pain reported at 01/31 4:00: 0 = None ---- Intake and Output ----- Mn/Dy/Year TimeIntakeOutFormerly [facility] Feb 01, 2020 6:00 [id number] Jan 31, 2020 10:00 [id number] Jan 31, 2020 2:00 [id number] The Intake and Output Totals for the last 24 hours are : IntakeOutputNet [id number] Medication: Medications: Continuous Medications 1. Dextrose 5% - Lactated Ringers Infusion.: 1000 mL I ntraVenous 2. Dextrose 5% in Water Infusion: 1000 mL IntraVenous Scheduled Medications 1. Ampicillin - Sulbactam 3 gm/NaCL 0.9% IVPB Soln 100 mL: 3 gram(s) IntraVenous Piggyback Every 12 Hours 2. diazePAM (VALIUM): 2.5 mg Oral Every 6 Hours 3. Enoxaparin SubCutaneous: 30 mg SubCutaneous Every 2 4 Hours 4. Folic Acid: 1 mg Oral Daily 5. Folic Acid IV Piggy Back: 1 mg IntraVenous Piggybac k Daily 6. Gabapentin: 200 mg Oral 3 Times a Day 7. Insulin Glargine (Lantus) Injectable: 6 unit(s) Sub Cutaneous 2 Times a Day 8. Insulin Lispro Mild Corrective Scale: unit(s) SubCu taneous Every 4 Hours 9. Metoprolol Tartrate: 25 mg Oral 2 Times a Day 10. Multivitamin with Minerals: 1 tablet(s) Oral Daily 11. Pantoprazole: 40 mg Oral Daily 12. Pantoprazole Injectable: 40 mg IntraVenous Push Ev allyn 24 Hours 13. Sodium Chloride 0.9% Injectable Flush: 10 mL Intra Venous Flush Every 12 Hours 14. Tamsulosin: 0.4 mg Oral Daily 15. Thiamine: 500 mg Oral Daily 16. Thiamine IV Piggy Back: 500 mg IntraVenous Piggyba ck Daily 17. Topiramate: 25 mg Oral 2 Times a Day 18. Valproic Acid (Depakene): 1000 mg Oral Every 12 Ho urs 19. Valproic Acid IV Piggy Back (Depacon): 500 mg Intr aVenous Piggyback Every 12 Hours PRN Medications 1. Dextrose 50% in Water Injectable: 25 gram(s) IntraV enous Push Every 15 Minutes 2. Glucagon Injectable: 1 mg IntraMuscular Every 15 Mi nutes 3. Heparin Flush 10 unit/ mL PF Injectable: 5 mL Intra Venous Flush Every 12 Hours 4. Heparin Flush 10 unit/ mL PF Injectable PRN: 5 mL I ntraVenous Flush According to Flush Policy 5. Lidocaine 1% Injectable (PICC KIT): 1 mL IntraDerma l Once 6. LORazepam Injectable: 1 mg IntraVenous Push Every 6 Hours 7. Sodium Chloride 0.9% Injectable Flush PRN: 10 mL In traVenous Flush According to Flush Policy 8. Sodium Chloride 0.9% Injectable Flush PRN: 20 mL In traVenous Flush According to Flush Policy Conditional Medication Orders 1. Perflutren Lipid Microsphere (Activated) 1.3 mL / N aCL 0.9% T.V. 10 mL Injectable: 0.5 mL IntraVenous Push Once Recent Lab Results: Results: CBC: 02/01/2020 04:34 \ Hgb / \ 10.9 L / WBC Plt 12.6 H 183 / Hct \ / 33.3 L \ RBC: 3.08 L MCV: 108 H Neutrophil %: 86.8 CMP: 02/01/2020 04:34 NA+ Cl- BUN / 150 H 111 H 29 H / Glucose 139 H K+ HCO3- Creat \ 3.1 L 29 0.85 \ \ T Bili / \ 0.3 / AST x ---- x ALT 183 Hx ---- x 70 H / Alk P \ / 65 \ Calcium : 8.0 L Anion Gap : 13 Albumin : 2.3 L T Prote in : 4.9 L Coagulation: 02/01/2020 04:34 PT / 14.5 H / -------< INR < 1.2 H PTT\ 30 \ I have reviewed these laboratory results: Glucose_POCT Trending View [id number] 07:58:00 01-Feb-2020 04:35:00 [id number] H 138 H Coagulation Screen 01-Feb-2020 04:34:00 ResultValue Prothrombin Time, Plasma 14.5 H International Normalized Ratio, Plasma 1.2 H Activated Partial Thromboplastin Time 30 Complete Blood Count + Differential 01-Feb-2020 04:34: 00 ResultValue White Blood Cell Count 12.6 H Nucleated Erythrocyte Count 0.2 Red Blood Cell Count 3.08 L HGB 10.9 L HCT 33.3 L MCV 108 H MCHC 32.7 PLT 183 RDW-CV 14.2 Neutrophil % 86.8 Immature Granulocytes % 0.5 Lymphocyte % 5.8 Monocyte % 6.7 Eosinophil % 0.1 Basophil % 0.1 Neutrophil Count 10.90 H Lymphocyte Count 0.73 L Monocyte Count 0.84 H Eosinophil Count 0.01 Basophil Count 0.01 Comprehensive Metabolic Panel 01-Feb-2020 04:34:00 ResultValue Glucose, Serum 139 H NA 150 H K 3.1 L CL 111 H Bicarbonate, Serum 29 Anion Gap, Serum 13 BUN 29 H CREAT 0.85 GFR-Non >60 GFR- >60 Calcium, Serum 8.0 L ALB 2.3 L ALKP 65 T Pro 4.9 L T Bili 0.3 Alanine Aminotransferase, Serum 70 H Aspartate Transaminase, Serum 183 H Calcium, Ionized Level 01-Feb-2020 04:34:00 ResultValue Calcium, Ionized Level 1.04 L Magnesium, Serum 01-Feb-2020 04:34:00 ResultValue Magnesium, Serum 1.93 Assessment and Plan: Comorbidities: Comorbidity: Other Code Status: Code StatusDNAR with Added Limitations Assessment: Admission History: 7 year old Male Hx of HTN, HLP, ETOH use, neuropathy, lives alone, ambulates using a walker, presented to OSH ER with complaints of gen weakness for the last few days. He is confused and unable to answer que stions appropriately, data gathered from records. He apparentl y was found down on the floor possibly for > 24 hours. In the ER he was normotensiv e, VS stable, but appeared dehydrated with multiple wounds on skin, data showed evidence of rhabdomyolysis , KEN, metabolic acidosis, UA no signs of infection, COVI D negative, CXR right base infiltrate, CT head NAD, ECG sinus tachy, but per re cords the patient had runs of vtac. He was given boluses of fluid, placed on bicarb and amio gtt, given abx (zosyn, rocephin) The patient is confused, unable to provide HPI/S YS review. Data gathered from discussion with RN and reviewing the medical records PMH as above Social: + ETOH use, tob use, THC, lives alone family:HTN, DM, STROKE in FATHER Rx:asa, atorva, enalapril, HCTZ, METOP ALL: PORK, mustard Daily Progress: 01/31/20: Patient noted to be confused t his am. Per family, patient frequently drinks more then he should a nd has a tendency to use pills prescribed for other individuals. Echo being done at bedside, per cardiolog y, will try to obtain cath results that were done at OSH. Continue ami o ggt. Change medications for alcohol withdrawal. Optimize electrolytes. No ad ditional issues at this time. 02/01/20: Patient reports some confusion . Is stable from yesterday. Transition to mostly oral medications, and plan for Mid-line plac ement due to loss of access. No events on tele, amio ggt discontinued. Cont inues electrolyte replacement. no additional issues at this time. Current Medications: see above Review of Systems: Review of systems completed. Difficult t o obtain due to baseline mental status General: denies weight gain HEENT: denies headaches, dizziness, head trauma Respiratory: denies chest pain, dyspnea, cough and hem optysis Cardiovascular: denies orthopnea Gastrointestinal: denies pain, nausea vo miting, diarrhea, constipation, melena or bleeding. Genitourinary: denies hematuria, frequency Neurology: denies syncope, seizures, paralysis, paraes thesia Endocrine: denies polyuria, polydipsia Musculoskeletal: denies joint pain, swelling, arthriti s or myalgia Hematologic: denies bleeding, adenopathy and easy brui sing Skin: denies rashes and skin discoloration Psychiatry: denies depression Vital Signs: Reviewed Input/Output: Reviewed Oxygen requirements: Reviewed Ventilator Information: Reviewed Physical Exam: General appearance: Well developed, not in pain or dis tress, abraisons on forehead HEENT: Atraumatic/normocephalic, EOMI, MIGUEL Neck: Supple, no jugular venous distension, lymphadeno edmund Respiratory: Equal normal breath sounds, no wheezing, no crackles and no tenderness over ribs Cardiovascular: Normal S1, S2, regular rate and rhythm , no murmur, rub or gallop Abdomen: Normal sounds present, soft, lax with no tend erness, and no masses Extremities: No edema. Pulses are equally present. Skin: intact, no rashes Neurologic: Alert and oriented x 2-3, No focal deficit , lethargic Investigations: Labs, radiological imaging and cardiac work up were re viewed Assessment & Plan: Neurological System: Baseline Neuro function A&oX3 Current Neuro function A&OX2-3 #acute metabolic encephalopathy #alcohol abuse #polypharmacy #hx of TIA -patient known to be down for 2+ days per grandson -has history of alcohol abuse, in addition, noted to johana jacobs medicaitons perscribed for other individuals -tox screen negative -withdrawal protocol with sc heduled valium, ativan PRN, gabapentin, topamax and valproic acid -vitamins with folic acid and multivitamin, rouse ge to oral medications due to loss of access -monitor neuro status Cardiovascular System: Last Echo: unknown #NSVT #type II mI, troponinemia #HTN #CAD #Severe sepsis without shock -continue IVF rescuitation, lactate normal -trend troponin, downtrending -obtain echo -cardio following appreciate recommendations, continue BB, amio ggt discontinued -elevated troponin likely demand ischemia secondary to acidosis and rhabdomyolysis -patient did not have cath, was echo and EKG, results in chart Respiratory System: #aspiration PNA #Severe sepsis without shock #hypoxia -wean down O2 as tolerated -obtain speech eval due to likely aspiration -change abx to unasyn, day 2 if abx -elevate HOB to 30 degrees -monitor for aspiration Gastrointestinal System: Diet: nectar thick pureed Prophylaxis: #protonix for ppx Endocrine System: #hyperglycemia -ISS -add on lantus 6 BID Renal System: #rhamdomyolysis #Hypokalemia #hypernatremia #hypokalemia #hypomagnesmia #Metabolic Acidosis #KEN -was on ground for 2+ days -elevated CK, trend today -due to elevated NA, change fluids to D5W -acidosis resolved -elevated NA due to poor oral intake -trend CMP -replete K+, Phos, Mg -poor electrolytes likely secondary to alcohol intake Hematological System: #leukocytosis #anemia -likely anemia of chronic disease -leukocytosis likely reactive, monitor Infection Disease System: #aspiration PNA #sepsis severe without shock -change abx to unasyn -follow up on cultues #DVTppx -lovenox Signature/Cosignature/Attestation: Note Completion: I am a: Resident/Fellow Attending AttestationI saw and evaluated the patient. I personally obtained the pena and critical portions of the history and physi radha exam or was physically present for pena and critical portions perfo rmed by the resident/fellow. I reviewed the resident/fellows docum entation and discussed the patient with the resident/fellow. I agree with the resident/fellows medical decision making as documented in the note. I personally evaluated the patient [id number] Comments/ Additional Findings ICU STAFF PHYSICIAN NOTE OF PERSONAL INVOLVEMENT IN CA RE As the attending physician, I certify th at I personally reviewed the patient's history and personally examined the patient to confirm the physical findings described above, and that I reviewed the relevant imaging studies and available reports. I also discussed the differential diagnosis a nd all of the proposed management plans with the patient and individual s accompanying the patient to this visit. They had the opportunity to ask questions about the proposed management plans and to have those questions answered. This patient has a high probability of sudden, clinica lly significant deterioration, which requires the highest level of phy sician preparedness to intervene urgently. I managed/supervised life or organ supporting interventions that required frequent physician assessm ent. I devoted my full attention to the direct care of this patient for the amount of time indicated below. Time I spent with family or surrogate(s) is inc luded only if the patient was incapable of providing the necessary information or participating in medical decision-making. Time devoted to teaching a nd to any procedures I billed separately is not included. Critical Care Time: 35 minutes Electronic Signatures: Christen Foreman) (Signed 01-Feb-2020 13:03) Authored: Note Completion Co-Signer: Service, Subjective Data, Obj ective Data, Assessment and Plan, Note Completion Tong Umana (DO (Resident)) (Signed 01-Feb-2020 0 9:58) Authored: Service, Subjective Data, Objective Da ta, Assessment and Plan, Note Completion Last Updated: 01-Feb-2020 13:03 by Christen Foreman) EMR ADDON on 020 ADDON CONFIRMATION REQUEST REC'D Normal [facility] Comment on above: Performed By: #### TROP2 ### # [facility] [address] [place] [address] GLUCOSE-POCT on 01-17 Glucose [Mass/Vol] 145 mg/dL High 74 - 99 [facility] Comment on above: Performed By: #### GLUPO ### # [facility] [address] [place] [address] Glucose [Mass/Vol] 138 mg/dL High 74 - 99 [facility] Comment on above: Performed By: #### PHOS #### [facility] [address] [place] [address] Glucose [Mass/Vol] 157 mg/dL High - 99 [facility] Comment on above: Performed By: #### CBC #### [facility] [address] [place] [address] Glucose [Mass/Vol] 191 mg/dL High - [address] [place] [address] Comment on above: Performed By: #### GLUPO ### #[facility] [place] [address] Glucose [Mass/Vol] 118 mg/dL High - 99 [facility] Comment on above: Performed By: #### PHOS #### [facility] [address] [place] [address] Glucose [Mass/Vol] 130 mg/dL High - 99 [facility] Comment on above: Performed By: #### ALC #### [address] [address] MAGNESIUM on 020 Magnesium [Mass/Vol] 1.93 mg/dL Normal 1.60 - 2.40 [facility] Comment on above: Performed By: #### ALC #### [facility] [address] [place] [address] Nutrition Therapy-Assessment on 02-01-2020 Nutrition Assessment Subjective/Objective: Normal [facility] Therapy-Assessment Note Type: Assessment Center Note Authored by: Registered Dietitian Molding Sander Pager Number: [phone] Nutrition Note: The patient is a 74 year old Male admitted with ventri cular tachycardia. This assessment is being completed remotely and is in HIPAA compliance. Dietitian consult ordered for Nutrition assessme nt and recommendations. MST=2 for unsure of weight. No weight hx in EMR portal. Some confusion noted. Pureed solids with NTL ordered per swallow evalu ation finding mild dysphagia. Additional Dx: Nonrheumatic aortic valve stenosis: Non-ST elevation myocardial infarction (NSTEMI): Essential hypertension: Type 2 diabetes mellitus: Medical History: Paroxysmal ventricular tachycardia: Onset Date: Medical History: Paroxysmal ventricular tachycardia: Onset Date: Surg History: Rhabdomyolysis: Objective Information: Pain reported at 01/31 8:00: 0 Pain reported at 01/31 12:00: 0 = None ---- Intake and Output ----- Mn/Dy/Year TimeIntakeOutplains regional [facility] Feb 01, 2020 2:00 [id number] Feb 01, 2020 6:00 [id number] Jan 31, 2020 10:00 [id number] The Intake and Output Totals for the last 24 hours are : IntakeOutputNet [id number] Height/Weight: Height in cm: 165.1 centimeter(s) Weight (kg): 58.4 BMI (kg/m2): 21.424 square meter DBW (kg): 61.8 %DBW: 94 Weight history/ % weight change: no weight hx in EMR Recent Lab Results: Results: I have reviewed these laboratory results: Glucose_POCT Trending View [id number] 11:36:00 01-Feb-2020 07:58:00 04:35:00 31-Jan-2020 23:35:00 31-Jan-2020 20:47:00 31-Jan-2020 15:35:00 31-Jan-2020 11:31:00 31-Jan-2020 07:59:00 Glucose-THAS048 H 157 H 138 H 145 H 143 H 160 H 123 H 193 H Coagulation Screen 01-Feb-2020 04:34:00 ResultValue Prothrombin Time, Plasma 14.5 H International Normalized Ratio, Plasma 1.2 H Activated Partial Thromboplastin Time 30 Complete Blood Count + Differential Trending View [id number] 04:34:00 31-Jan-2020 04:37:00 White Blood Cell Count12.6 H 22.4 H Nucleated Erythrocyte Count0.2 0.1 Red Blood Cell Count3.08 L 3.01 L HGB10.9 L 10.8 L HCT33.3 L 33.6 L KCM620 H 112 H MCHC32.7 32.1 RPV878 216 RDW-CV14.2 14.5 Neutrophil %86.8 92.1 Immature Granulocytes %0.5 0.7 Lymphocyte %5.8 2.2 Monocyte %6.7 4.9 Eosinophil %0.1 0.0 Basophil %0.1 0.1 Neutrophil Count10.90 H 20.61 H Lymphocyte Count0.73 L 0.50 L Monocyte Count0.84 H 1.09 H Eosinophil Count0.01 0.00 Basophil Count0.01 0.03 Comprehensive Metabolic Panel Trending View [id number] 04:34:00 31-Jan-2020 00:33:00 Glucose, Nbtxk617 H 209 H NA150 H 148 H K3.1 L 3.4 L CL111 H 114 H Bicarbonate, Serum29 17 L Anion Gap, Serum13 20 BUN29 H 60 H CREAT0.85 2.19 H GFR-Non >60 30 A GFR->60 36 A Calcium, Serum8.0 L 8.0 L ALB2.3 L 2.6 L ALKP65 71 T Pro4.9 L 5.4 L T Bili0.3 0.3 Alanine Aminotransferase, Serum70 H 64 H Aspartate Transaminase, Uykvm211 H 200 H Calcium, Ionized Level 01-Feb-2020 04:34:00 ResultValue Calcium, Ionized Level 1.04 L Magnesium, Serum Trending View [id number] 04:34:00 31-Jan-2020 00:33:00 Magnesium, Serum1.93 2.16 Phosphorus, Serum Trending View [id number] 04:34:00 31-Jan-2020 00:33:00 Phosphorus, Serum1.0 L 3.8 Creatine Kinase, Level 01-Feb-2020 04:34:00 ResultValue Creatine Kinase, Level 6045 H Potassium, Level 31-Jan-2020 15:06:00 ResultValue K 3.6 Renal Function Panel 31-Jan-2020 04:37:00 ResultValue Glucose, Serum 248 H NA 151 H K 3.0 L CL 114 H Bicarbonate, Serum 24 Anion Gap, Serum 16 BUN 57 H CREAT 1.92 H GFR-Non 35 A GFR- 42 A Calcium, Serum 8.1 L Phosphorus, Serum 2.7 ALB 2.5 L Lipase, Serum 31-Jan-2020 04:37:00 ResultValue Lipase, Serum 293 H Complete Blood Count 31-Jan-2020 00:33:00 ResultValue White Blood Cell Count 24.8 H Nucleated Erythrocyte Count 0.0 Red Blood Cell Count 3.25 L HGB 11.4 L HCT 36.1 L MCV 111 H MCHC 31.6 L PLT 215 RDW-CV 14.4 Current Active Medications/PN: Multivitamin with Minerals, Tablet DOSE = 1 tablet(s) Oral Daily, 30-Jan-2020 Dextrose 50% in Water Injectable, DOSE = 25 gram (s) IntraVenous Push Every 15 Minutes, PRN Blood Glucose 70 mg/dL or LESS & HAS IV a ccess Clinician Notes: IF patient HAS a secure IV access & i s Unconscious, Conscious, NPO or Unable to Eat or Drink. Repeat until BG reaches 100 mg/dL or greater. Push 2-3 mL/minute. Discontinue once BG reaches 100 mg/dL or greater., Jan-2020 Glucagon Injectable, DOSE = 1 mg IntraMuscular Every 1 5 Minutes, PRN Blood Glucose 70 mg/dL or LESS & NO IV starch factory laborer Notes: IF patient DOES NOT have secure IV ac cess & is Unconscious, Conscious, NPO or Unable to Eat or Drink. Repeat until BG reaches 100 mg/dL or greater. Discontinue once BG reaches 100 mg/dL or greater., Jan-2020 Insulin Lispro Mild Corrective Scale, Give SubCutaneou s Every 4 Hours Hypoglycemia Protocol Call LIP unit(s) if Blood Glucos e is between 0 - 70 0 unit(s) if Blood Glucose is between 71 - 150 2 unit(s) if Blood Glucose is between 151 - 200 4 unit(s) if Blood Glucose is between 201 - 250 6 unit(s) if Blood Glucose is between 251 - 300 8 unit(s) if Blood Glucose is between 301 - 350 10 unit(s) if Blood Glucose is between 351 - 400 Notify Provider unit(s) if Blood Glucose is greater th an 400 Notes from Pharmacy: [facility], 31-Jan-2020 LORazepam Injectable, (ATIVAN) DOSE = 1 mg IntraVenous Push Every 6 Hours, PRN Agitat ion, 31-Jan-2020 Ampicillin - Sulbactam 3 gm/NaCL 0.9% IVPB Soln 100 mL , (UNASYN) Every 12 Hours Recommended Infusion Time: 30 minute(s), 31-Jan-2020 diazePAM (VALIUM), Tablet DOSE = 2.5 mg Oral Every 6 Hours, 31-Jan-2020 Gabapentin, Capsule (NEURONTIN) DOSE = 200 mg Oral 3 Times a Day, 31-Jan-2020 Topiramate, Tablet (TOPAMAX) DOSE = 25 mg Oral 2 Times a Day Notes from Pharmacy: Reproductive Risk- Single Nitrile Glove, 31-Jan-2020 Metoprolol Tartrate, Tablet (LOPRESSOR) DOSE = 25 mg Oral 2 Times a Day, 31-Jan-2020 Insulin Glargine (Lantus) Injectable, DOSE = 6 u nit(s) SubCutaneous 2 Times a Day Notes from Pharmacy: HIGH ALERT [facility], 31-Jan-2020 Magnesium Sulfate 2 gram/Sterile Water 50 mL Premix So ln, Once Recommended Infusion Time: 2 hour(s) Stop After 1 Doses, 01-Feb-2020 Potassium Phosphate IVPB, in Sodium Chloride 0.9% 250 mL DOSE = 21 mmol Once Recommended Infusion Time: 6 hour(s) Stop After 1 Doses, 01-Feb-2020 Heparin Flush 10 unit/ mL PF Injectable, via Midline C atheter Volume = 5 mL IntraVenous Flush Every 12 Hours Clinician Notes: When patient has double lumen, flush both lumens, 01-Feb-2020 Heparin Flush 10 unit/ mL PF Injectable PRN, via Midli ne Catheter Volume = 5 mL IntraVenous Flush According to Flush Jamin icy PRN: To Maintain Line Patency Clinician Notes: After blood draws, 01-Feb-2020 Lidocaine 1% Injectable (PICC KIT), DOSE = 1 mL IntraD ermal Once, PRN PICC nurse may administer Pre PICC insertion Clinician Notes: May Give 1ml to 5ml to anesthetize insertion site for patient comfort., 01-Feb-2020 Sodium Chloride 0.9% Injectable Flush, via Midline Cat heter Volume = 10 mL IntraVenous Flush Every 12 Hours Clinician Notes: When patient has double lumen, flush both lumens, 01-Feb-2020 Sodium Chloride 0.9% Injectable Flush PRN, via Midline Catheter Volume = 10 mL IntraVenous Flush According to Flush Po licy PRN: To Maintain Line Patency Clinician Notes: After each administration of a medica tion After the administration of blood or blood products When converting a continuous infusion to an intermitte nt device, 01-Feb-2020 Sodium Chloride 0.9% Injectable Flush PRN, via Midline Catheter Volume = 20 mL IntraVenous Flush According to Flush Po licy PRN: To Maintain Line Patency Clinician Notes: After blood draws, 01-Feb-2020 Pantoprazole, Enteric Coated Tablet (PROTONIX) DOSE = 40 mg Oral Daily, 01-Feb-2020 Folic Acid, Tablet DOSE = 1 mg Oral Daily, 01-Feb-2020 Thiamine, Tablet DOSE = 500 mg Oral Daily, 01-Feb-2020 Tamsulosin, Capsule (FLOMAX) DOSE = 0.4 mg Oral Daily, 01-Feb-2020 Valproic Acid (Depakene), Capsule DOSE = 1,000 mg Oral Every 12 Hours Notes from Pharmacy: Reproductive Risk- Single Nitrile Glove, 01-Feb-2020 Enoxaparin SubCutaneous, (LOVENOX) DOSE = 40 mg SubCutaneous Every 24 Hours, 01-Feb-2020 Dextrose 5% in Water Infusion, IV Bag Volume = 1,000 m L Run at: 100 mL/hr IntraVenous , 01-Feb-2020 Nutrition Orders: Diet May Participate in Room Service Paulino Sims Order entered from Admission Screens., 31-Jan-2020 Diet, Cardiac Texture: Pureed 4 Liquid Consistency: Mild thick 2 ([place] thick), Oral Nutritional Supplements, Routine Sugar Free Mighty Shake ([facility] Only), 2 Times a Day Special Instructions: send at lunch and dinner, Food/Nutrition Related History: Change in Oral Intake/Appetite: 50-75% x3 meals GI Symptoms: none Time Frame for GI Symptoms Greater Than 2 Weeks: not a pplicable Oral Problems: swallowing difficulty, mild dysphagia Food Allergies: Allergen/ProductAllergen TypeReactionStatus NKDAActive PorkFoodUnknownActive MustardFoodUnknownActive Food Allergies Comment: NKFA Nutrition Focused Physical Findings: Physical Findings: deferred --precaution in setting of COVID-19 pandemic Other Physical Findings: Skin: multiple abrasions Edema: +1, generalized Subjective Global Assessment Rating: unable to determi ne at this time Estimated Needs: kcals/day: 9229-2930 gms protein/day: 47-58 mL fluid/day: 1mL/kcal or per MD. Nutrition Diagnosis: Diagnosis1 new. Dx: Inadequa te oral intake. related to acute illness, confusion as evidenced by 50-75% x3 meals. Diagnosis2 new. Dx: Increased nutrient needs. re lated to physiological causes increasing nutrient needs as evidenced by multiple abr asions. Nutrition Interventions: Individualized Nutrition Prescription Provided for: di et, vitamins, minerals Ordered Supplements: SF Mighty shakes twice a day Other Interventions: Evaluate nutrition interventions as compared to nutrition goals and estimated nutrient need criteria. Nutrition Goals: Goals: Nutrition Therapy: oral intake greater than 75% , consume prescribed supplement, adequate po fluid intake, Blood Glucose 80 -180 mg/dl, lab values within normal limits, promote healing, maintain stable weight Nutrition Goal Outcomes: Will assess progress towards goals upon follow-up Outcomes Summary: Nutrition Therapy Outcome Summary: Nutritional Therapy: Inadequate oral intakes with increased nutrient needs. Will continue with SF Shakes twice a d ay NUTRITION RECOMMENDATIONS: Recommendations: 1) Continue with diet as ord ered and tolerated. Will defer diet textures to CLEANING AND MAINTENANCE WORKER for safest diet consistency 2) Will continue with SF Mighty shakes twice a day 3) Weigh weekly 4) Monitor and encourage intakes Nutrition Therapy Recommendations: Nutrition Therapy Recommendations: See RD note for rec ommendations Labs/Monitors: Blood Glucose frequency: every 6 hrs Additional Labs: replete electrolytes prn Dietitian Monitoring and Evaluation Plan: Monitoring and Evaluation Pl an: po intake and tolerance, fluid intake/adequacy, vitamin/mineral intake, weight trend, stool output, sk in healing/integrity, overall appearance, labs Diet Education: Nutrition Education: NA Time Spent (minutes): 45 Nutrition Support: no Electronic Signatures: Emily Gross (NANCY) (Signed 01-Feb-2020 14:25) Authored: Assessment Subjective/Objective, Nutrition F ocused Physical Findings, Estimated Needs, Nutrition Diagnosis, Nutrit ion Interventions, Nutrition Goals, Nutrition Recommendations, Parenteral Nutrition Recommendations, Dietitian M onitoring and Evaluation Plan, Diet Education, Time Spent/Nutrition Support Last Updated: 01-Feb-2020 14:25 by Emily Gross (NANCY) PHOSPHORUS on 2019 Phosphate [Mass/Vol] 1.0 mg/dL Low 2.5 - 4.9 [facility] Comment on above: Result Comment: The performa nce characteristics of phosphorus testing in heparinized plasma have been validated by the individual laboratory site where bhargavi ting is performed. Testing on heparinized plasma is not approved by the FDA; however, such approval is no t necessary. Performed By: #### PHOS #### [facility] [place] [address] ABDOMEN AP VIEW on 1 04-02-2019 ABDOMEN AP VIEW Normal [facility] Patient Name: JAGRUTI RAMIREZ STUDY: ABDOMEN AP VIEW; 01/31/2020 5:02 pm INDICATION: eval for free air under abdomen. COMPARISON: None. ACCESSION NUMBER(S): [id number] ORDERING CLINICIAN: TONG UMANA FINDINGS: Multiple overlying leads are present. Nonobstructive b owel gas pattern. The redemonstration of a subtle lucency in th e right lung base as noted on concurrent chest x-ray. No pneumatosi s or portal venous gas. No abnormal calcifications. Bibasilar atelectasis. Osseous structures demonstrate no acute bony changes. IMPRESSION: 1. Redemonstration of subtle lucency in the right lung base as noted on concurrent chest x-ray. As noted previously finding s may relate to right basilar atelectasis and/or pneumonia however cor relate with symptomatology and if there is concern for pneumoperit oneum decubitus views or further evaluation with CT can be considered. Electronically signed by: FER MEZA MD ALCOHOL on 0 Ethanol [Mass/Vol] mg/dL Normal [facility] Comment on above: Result Comment: FOR MEDICAL USE ONLY. . REF VALUES <10 Performed By: #### ALC #### [address] [address] ARTERIAL FULL PANEL on 01-31-2020 TIEN'S TEST[COLLATERAL CIRCULATION] Weak Pulse Normal [facility] Comment on above: Performed By: #### TROP2 ### # [address] [address] Anion gap [Moles/Vol] 17 mmol/L Normal 10 - 25 [facility] Comment on above: Performed By: #### TROP2 ### # [facility] [address] [place] [address] APPARAT[address] Normal [facility] Comment on above: Performed By: #### TROP2 ### # [facility] [address] [place] [address] BASE EXCESS-BLOOD -3.0 mmol/L Low -2.0 - 3.0 [facility] Comment on above: Performed By: #### TROP2 ### # [address] [address] CALCIUM, IONIZED 1.15 mmol/L Normal 1.10 - 1.33 [facility] [place] Comment on above: Performed By: #### TROP2 ### # [address] [address] Chloride [Moles/Vol] 111 mmol/L High 98 - 107 [facility] Comment on above: Performed By: #### TROP2 ### # [facility] [address] [place] [address], [place] [address] FIO2 28 % Normal 21 - 100 [facility] Comment on above: Performed By: #### TROP2 ### # [address] [place] [address] Glucose [Mass/Vol] 325 mg/dL High 74 - 99 [facility] Comment on above: Performed By: #### TROP2 ### # [address] [address] Hematocrit (Bld) [Volume fraction] 31.0 % Low 41.0 - 52.0 [facility] Comment on above: Performed By: #### TROP2 ### # [address] [address] HGB, CALCULATED 10.5 g/dL Low 13.5 - 17.5 [facility] Comment on above: Performed By: #### TROP2 ### # [address] [address] Lactate [Moles/Vol] 0.9 mmol/L Normal 0.4 - 2.0 [facility] Comment on above: Performed By: #### TROP2 ### # [address] [address] Oxygen (Bld) [Partial pressure] 103 mm[Hg] High 85 - 95 [facility] Comment on above: Performed By: #### TROP2 ### # [address] [place] [address] PCO2 29 mmHg Low 38 - 42 [facility] Comment on above: Performed By: #### TROP2 ### # [address] [place] [address] pH (Bld) 7.45 [pH] High 7.38 - 7.42 [facility] Comment on above: Performed By: #### TROP2 ### # [address] [address] Potassium [Moles/Vol] 3.2 mmol/L Low 3.5 - 5.3 [facility] Comment on above: Performed By: #### TROP2 ### # [facility] [address] [place] [address] RBC (Bld) [#/Vol] 20.2 mmol/L Low 22.0 - 26.0 [facility] Comment on above: Performed By: #### TROP2 ### # [facility] [address] [place] [address] SITE OF ARTERIAL PUNCTURE L Brachial Normal [facility] Comment on above: Performed By: #### TROP2 ### # [facility] [address] [place] [address] SO2 99 % Normal 94 - 100 [facility] Comment on above: Performed By: #### TROP2 ### # [facility] [address] [place] [address] Sodium [Moles/Vol] 145 mmol/L Normal 136 - 145 [facility] Comment on above: Performed By: #### TROP2 ### # [facility] [address] [place] [address] Admission Risk Screen - Adult on 01-31-2020 Admission Risk Allergies: Normal [facility] Screen - Adult Allergies: Center NKDA: Pork: Unknown Mustard: Unknown Patient Verification: New W ID Band Applied in my Departmentyes Patient Identity Verified Bydriver's license/state ID; wrong bday year/admitting notified ID Band FULL Name, include Middle, spelling matches nicole khoury's ID used for verificationyes No middle name ID Band Matches Patient ID used for Verficationno ID Band MRN Matches EMR MRNyes Visitor Restriction: Coronavirus Visitor Restriction: Reasonable restrictio ns to in-person visitors will be observed due to current coronavirus p andemic. Travel History: COVID-19 Screening Completedno exposure or symptoms Advance Directive: Advance Directive/DNRyes Advance Directive typeDNR- CCA, No intubation DNR-CCA Availabilityplaced on chart DNR-CCA Placed on [id number] El Fall Screen: History of falling (immediate or previous)yes (25) Secondary Diagnosisyes (15) Intravenous Therapy/ Heparin/Saline Lockyes (20) Gait/Transferringimpaired (20) Ambulatory Aidsnone/bedrest/nurse assist (0) Mental Statusoverestimates/forgets limitations (15) Score: Low risk (<25). Moderate risk (25-44). High ris k (>44).95 El InterventionsHIGH INTERVENTIONS *Low and Moderate Interventions Plus: * supervised toileting at all times Family Violence Screen: Are you or have you been threatened or abused physical ly, emotionally, or sexually by anyoneunable to assess Do you feel UNSAFE going back to the place where you a re livingunable to assess Clinical assessment: Are there any apparent signs of i njuries/behaviors that could be related to abuse/neglectunable to assess Social Service Consult for abuse/neglect needed this v guillaume Functional Screen: Functional Screen: In the recent/past 2-4 weeks, patie nt or family have noticeda significant change in speech or language AM-PAC- Basic Mobility/Daily Activity: Patient baseline bedboundunable to assess at this time Learning Assessment (Patient): Patient is Able to be Assessed for Learningno Reason Unable to Assessmentally impaired /confusion Learning Assessment CommentsNo family present Learning Assessment (Other Learner): Other learner availableno Depression Screen: During the past month, have you often been bothered by feeling down, depressed or hopelessunable to assess During the past month, have you often had little inter est or pleasure in doing thingsunable to assess Have you had any thoughts of harming anyone elseunable to assess [place] Suicide: Risk Screen Not Applicable/Able to Answerunable to ass walter CommentPt confused at this time on admit Adult Nutrition Screen: Have you recently lost weight without tryingunsure Have you been eating poorly because of a decreased vivian etiteno Malnutrition Screening Tool Score2 Malnutrition Screening Tool RiskMST = 2 or more At Ris k. Eating poorly and/or recent weight loss Nutrition Consult needed this visityes Can Patient Participate in Room Serviceyes, with odilon braxton Patient requires Paper Dishes/Plastic Utensilsno Pain Screen: Pain ScaleCognitively Impaired Pain Assessment Tool Pain Scale Educationunable to educate Reasons for inability to educatecurrent condition; no family available Current Pain Levelunable to assess Acceptable Pain Levelunable to assess Expression of Pain (nonverbal)guarding, moaning, restl ess Chronic Painunable to assess Spiritual Screen: Are there any cultural, spiritual, spiritism practices /values/needs that are important for us to knowunable to assess CAGE: Is this an injured patient at a Trauma Center ([facility]): no Vaccinations: Vaccination - Influenza Vaccination Screen: Is it flu season (between and May 30)Yes Screening for identified contraindications to influenz a vaccinationpatient already received vaccine this season Vaccination - Pneumonia Vaccination Screen: Patient has received a previous pneumonia vaccine:yes (given either at or after age 65) Poncho: Skin - Poncho Scale: Poncho: Sensory Perception (response to environment)(2 ) very limited [place]: Moisture (degree skin exposed to moisture)(3) occasionally moist Poncho: Activity (ability to walk)(1) bedfast Poncho: Mobility (amount/control of body movement)(2) very limited Poncho: Nutrition (quality of food intake)(2) probably inadequate Poncho: Friction and Shear(1) problem Poncho: Score11 Skin Intervention Orders (Nursing orders will be gener ated)elevate heels, up in chair < 1 hr intervals, turn side to side every 2 h rs, assess for therapeutic equipment, asses s pressure points, hygiene care, toilet/ADL every 2 hrs awake, toilet/ADL every 4 hrs asleep , educate prevent/treat pressure ulcer Significant Indicatiors: Significant Indicators: Complete Pressure Injury: Pressure Injury Present on Admissionno Second Nurse CheckMultiple abrasions from fall prior t o admit/see assessment screen Electronic Signatures: Mey Ronquillo (RN) (Signed 31-Jan-2020 03:01) Authored: Admission Risk Screens, El Fall Screen, V accinations, Poncho, Pressure Injury Last Updated: 31-Jan-2020 03:01 by Mey Ronquillo (NANCY) CALCIUM, IONIZED on 01-31-2020 CALCIUM, IONIZED 0.99 mmol/L Low 1.10 - 1.33 [facility] Comment on above: Result Comment: The performa nce characteristics of ionized calcium tested in heparinized plasma or ser um have been validated by the individual laboratory sit e where testing is performed. Testing on heparinized plasm a or serum is not approved by the FDA; however, such appro blaire is not necessary. Performed By: #### CMP #### [address] [address] CALCIUM, IONIZED 0.99 mmol/L Low 1.10 - 1.33 [facility] Comment on above: Result Comment: The performa nce characteristics of ionized calcium tested in heparinized plasma or ser um have been validated by the individual laboratory sit e where testing is performed. Testing on heparinized plasm a or serum is not approved by the FDA; however, such appro blaire is not necessary. Performed By: #### TROP2 ### # [address] [address] CBC on 01-31-2020 Erythrocyte distribution width 14.4 % Normal 11.5 - 14. 5 [facility] (RBC) [Ratio] Comment on above: Performed By: #### CBC #### [address] [address] Hematocrit (Bld) [Volume fraction] 36.1 % Low 41.0 - 52.0 [facility] Comment on above: Performed By: #### CBC #### [address] [address] Hemoglobin (Bld) [Mass/Vol] 11.4 g/dL Low 13.5 - 17.5 [facility] Comment on above: Performed By: #### CBC #### [address] [address] MCHC (RBC) [Mass/Vol] 31.6 g/dL Low 32.0 - 36.0 [facility] Comment on above: Performed By: #### CBC #### [address] [address] MCV (RBC) [Entitic vol] 111 fL High 80 - 100 [facility] Comment on above: Performed By: #### CBC #### [address] [address] Nucleated RBC/100 WBC (Bld) 0.0 /100 WBC Normal 0.0 - 0.0 [facility] [Ratio] Comment on above: Performed By: #### CBC #### [address] [address] Platelets (Bld) [#/Vol] 215 10*3/uL Normal 150 - 450 [facility] Comment on above: Performed By: #### CBC #### [facility] [address] [place] [address] RBC (Bld) [#/Vol] 3.25 x10E12/L Low 4.50 - 5.90 [facility] Comment on above: Performed By: #### CBC #### [address] [address] WBC (Bld) [#/Vol] 24.8 10*3/uL High 4.4 - 11.3 [facility] Comment on above: Performed By: #### CBC #### [address] [address] CBC AND DIFFERENTIAL on 01-31-2020 % AUTOMATED IMMATURE GRAN 0.7 % Normal 0.0 - 0.9 [facility] Comment on above: Result Comment: Immature Gra nulocyte Count (IG) includes promyelocytes, myelocytes and metamyelocyte s but does not include bands. Percent differential counts (%) should be interpreted in the context of the absolute cell counts (cells/L). Performed By: #### CBCDF ### #[facility] [place] [address] Basophils (Bld) [#/Vol] 0.03 10*3/uL Normal 0.00 - 0.10 [facility] Comment on above: Performed By: #### CBCDF ### #[facility] [place] [address] Basophils/100 WBC (Bld) 0.1 % Normal 0.0 - 2.0 [facility] Comment on above: Performed By: #### CBCDF ### #[facility] [place] [address] Eosinophils (Bld) [#/Vol] 0.00 10*3/uL Normal 0.00 - 0.40 [facility] Comment on above: Performed By: #### CBCDF ### #[facility] [id number] [place] [address] Eosinophils/100 WBC (Bld) 0.0 % Normal 0.0 - 6.0 [facility] Comment on above: Performed By: #### CBCDF ### [address] [address] Erythrocyte distribution width 14.5 % Normal 11.5 - 14. 5 [facility] (RBC) [Ratio] Comment on above: Performed By: #### CBCDF ### [address] [address] Hematocrit (Bld) [Volume fraction] 33.6 % Low 41.0 - 52.0 [facility] Comment on above: Performed By: #### CBCDF ### [address] [place] [address] Hemoglobin (Bld) [Mass/Vol] 10.8 g/dL Low 13.5 - 17.5 [facility] Comment on above: Performed By: #### CBCDF ### [address] [address] Lymphocytes (Bld) [#/Vol] 0.50 10*3/uL Low 0.80 - 3.00 [facility] Comment on above: Performed By: #### CBCDF ### [address] [address] Lymphocytes/100 WBC (Bld) 2.2 % Normal 13.0 - 44.0 [facility] Comment on above: Performed By: #### CBCDF ### [address] [address] MCHC (RBC) [Mass/Vol] 32.1 g/dL Normal 32.0 - 36.0 [facility] Comment on above: Performed By: #### CBCDF ### [address] [address] MCV (RBC) [Entitic vol] 112 fL High 80 - 100 [facility] Comment on above: Performed By: #### CBCDF ### [address] [address] Monocytes (Bld) [#/Vol] 1.09 10*3/uL High 0.05 - 0.80 [facility] Comment on above: Performed By: #### CBCDF ### #[facility] [place] [address] Monocytes/100 WBC (Bld) 4.9 % Normal 2.0 - 10.0 [facility] Comment on above: Performed By: #### CBCDF ### #[facility] [place] [address] Neutrophils (Bld) [#/Vol] 20.61 10*3/uL High 1.60 - 5.50 [facility] Comment on above: Performed By: #### CBCDF ### #[facility] [place] [address] Neutrophils/100 WBC (Bld) 92.1 % Normal 40.0 - 80.0 [facility] Comment on above: Performed By: #### CBCDF ### #[facility] [place] [address] Nucleated RBC/100 WBC (Bld) 0.1 /100 WBC Normal 0.0 - 0.0 [facility] [Ratio] Comment on above: Performed By: #### CBCDF ### #[facility] [place] [address] Platelets (Bld) [#/Vol] 216 10*3/uL Normal 150 - 450 [facility] Comment on above: Performed By: #### CBCDF ### #[facility] [place] [address] RBC (Bld) [#/Vol] 3.01 x10E12/L Low 4.50 - 5.90 [facility] Comment on above: Performed By: #### CBCDF ### #[facility] [place] [address] WBC (Bld) [#/Vol] 22.4 10*3/uL High 4.4 - 11.3 [facility] Comment on above: Performed By: #### CBCDF ### #[facility] [place] [address] CHEST 1 VIEW on 01-17 [address] [facility] Patient Name: JAGRUTI RAMIREZ STUDY: CHEST 1 VIEW; 01/31/2020 2:11 am INDICATION: sob, pneumonia. COMPARISON: None. ACCESSION NUMBER(S): [id number] ORDERING CLINICIAN: MT VILLALOBOS FINDINGS: CARDIOMEDIASTINAL SILHOUETTE AND VASCULATURE: Cardiac size: Within normal limits. Aortic shadow: Within normal limits considering portab le technique Mediastinal contours: Within normal limits considering portable technique Pulmonary vasculature: The central vasculature is unre markable. LUNGS: There is focal opacity at the right base probably from atelectasis or early pneumonia. The configuration of this a is felt t o account for underlying relative lucent appearance, but an abdomina l series with decubitus view would be recommended if there is refera ble symptomatology to exclude the less likely possibility of free intraperitoneal air. There also appears to be a focal infiltrate or atelectasis at the left base, possibly fibrosis as are no prior exams for comparison. ABDOMEN AND OTHER FINDINGS: No remarkable upper abdominal findings. BONES: No acute osseous changes. IMPRESSION: 1. Bibasilar atelectasis. The configuration of this on the right this is felt to account for curvilinear lucency, but a n abdominal series would be recommended to exclude free air if the re is referable abdominal symptomatology. An orange critical finding was reported to the orderin g clinician after failed phone call attempts through Not[employer] report ing system at the time of dictation. Electronically signed by: MARIUM GANDARA MD COAGULATION SCREEN o n 01-31-2020 aPTT Coag (Bld) [Time] 29 s Normal 25 - 35 [facility] Comment on above: Result Comment: THE APTT IS NO LONGER USED FOR MONITORING UNFRACTIONATED HEPARIN THERA PY. FOR MONITORING HEPARIN THERA PY, USE THE HEPARIN ASSAY. Performed By: #### CMP #### [facility] [address] [place] [address] aPTT Coag (Bld) [Time] 34 s Normal 25 - 35 [facility] Comment on above: Result Comment: THE APTT IS NO LONGER USED FOR MONITORING UNFRACTIONATED HEPARIN THERA PY. FOR MONITORING HEPARIN THERA PY, USE THE HEPARIN ASSAY. Performed By: #### PHOS #### [facility] [address] [place] [address] INR Coag (PPP) [Relative time] 1.3 {INR} High 0.9 - 1.1 [facility] Comment on above: Performed By: #### CMP #### [facility] [address] [place] [address] INR Coag (PPP) [Relative time] 1.4 {INR} High 0.9 - 1.1 [facility] Comment on above: Performed By: #### PHOS #### [facility] [address] [place] [address] PT Coag (PPP) [Time] 15.7 s High 10.1 - 13.3 [facility] Comment on above: Performed By: #### CMP #### [facility] [address] [place] [address] PT Coag (PPP) [Time] 16.1 s High 10.1 - 13.3 [facility] Comment on above: Performed By: #### PHOS #### [facility] [address] [facility] [place] [address] COMPREHENSIVE PANEL on 01-31-2020 Albumin [Mass/Vol] 2.6 g/dL Low 3.4 - 5.0 [facility] Comment on above: Performed By: #### CMP ####[facility] [facility] [place] [address] ALP [Catalytic activity/Vol] 71 U/L Normal 33 - 136 [facility] Comment on above: Performed By: #### CMP ####[facility] [facility] [place] [address] ALT [Catalytic activity/Vol] 64 U/L High 10 - 52 [facility] Comment on above: Result Comment: Patients juliet ated with Sulfasalazine may generate falsely decreased results fo r ALT. Performed By: #### CMP ####[facility] [facility] [place] [address] Anion gap [Moles/Vol] 20 mmol/L Normal 10 - 20 [facility] Comment on above: Performed By: #### CMP ####[facility] [place] [address] AST [Catalytic activity/Vol] 200 U/L High 9 - 39 [facility] Comment on above: Performed By: #### CMP ####[facility] [facility] [place] [address] Bilirubin [Mass/Vol] 0.3 mg/dL Normal 0.0 - 1.2 [facility] Comment on above: Performed By: #### CMP ####[address] [address] Calcium [Mass/Vol] 8.0 mg/dL Low 8.6 - 10.3 [facility] Comment on above: Performed By: #### CMP ####[address] [address] Chloride [Moles/Vol] 114 mmol/L High 98 - 107 [facility] Comment on above: Performed By: #### CMP ####[address] [address] Creatinine [Mass/Vol] 2.19 mg/dL High 0.50 - 1.30 [facility] Comment on above: Performed By: #### CMP ####[address] [address] GFR- AM. 36 mL/min/1.73m2 Abnormal >60 [facility] Comment on above: Result Comment: CALCULATIONS OF ESTIMATED GFR ARE PERFORMED USING THE MDRD STUDY EQUATIO N FOR THE IDMS-TRACEABLE CREATININE ME THODS. CLIN CHEM 2007;53:766-72 This is a corrected result. Previous value was 35, verified at 01/31/2020 01:19 Performed By: #### CMP ####[address] [address] GFR-NON AM. 30 mL/min/1.73m2 Abnormal >60 [facility] Comment on above: Result Comment: This is a co rrected result. Previous value was 29, verified at 01/31/2020 01:19 Performed By: #### CMP ####[address] [address] Glucose [Mass/Vol] 209 mg/dL High 74 - 99 [facility] Comment on above: Performed By: #### CMP ####[address] [address] HCO3 (Bld) [Moles/Vol] 17 mmol/L Low 21 - 32 [facility] Comment on above: Performed By: #### CMP ####P [facility] [place] [address] Potassium [Moles/Vol] 3.4 mmol/L Low 3.5 - 5.3 [facility] Comment on above: Performed By: #### CMP ####P [facility] [place] [address] Protein [Mass/Vol] 5.4 g/dL Low 6.4 - 8.2 [facility] Comment on above: Performed By: #### CMP ####P [facility] [place] [address] Sodium [Moles/Vol] 148 mmol/L High 136 - 145 [facility] Comment on above: Performed By: #### CMP ####P [facility] [place] [address] Urea nitrogen [Mass/Vol] 60 mg/dL High 6 - 23 [facility] Comment on above: Performed By: #### CMP ####P [facility] [place] [address] CREATINE KINASE on 1 04-02-2019 CK [Catalytic activity/Vol] [address] U/L High 0 - 325 [facility] Comment on above: Performed By: #### GLUPO ### # [facility] [address] [place] [address] Consult-Cardiology o n 01-31-2020 Consult-Cardiology Service: Normal [facility] Service: Cardiology Center Consult: Consult requested by (Attending Name): Mt Villalobos Reason: [facility] History of Present Illness: HPI: JAGRUTI RAMIREZ is a 74 year old Male who I am asked to see regarding an elevated troponin, and possible runs of ventricular ta chycardia. The patient was found on the ground for at least 24 for poss ibly up to 72 hours. He has a history of having had this happen. He does drink exces sively and has a tendency according to his family to take medications from other people. He has no symptoms of chest pain or pressure. Chaz estes tells me that 6 months ago he had an evaluation at [facility] for coronary disease including a cardiac catheterization. We try to obtain his re cords there is no history of a cardiac work-up in the recent past. Upon arrival his tro ponins are marginally better. He was found to have an AK I with significant rhabdomy olysis. He is being hydrated. He denies chest pain or pressure. He has no shortness of breath. He is not a very good historian.He prese nted to an outlying hospital. There he had evidently episodes of ventricular tachycardi a. He was placed on IV amnio. He has had one 8 beat run of ventricular tachycardia w hile he has been here. Review of systems: 10 systems reviewed but are difficult and are very acc urate Past medical history: 1. Type 2 diabetes 2. Hypertension 3. History of alcoholism 4. Kidney issues Allergies: Pork and mustard Social history: He drinks extensively. He does smoke. He lives alone. Family history: I cannot obtain this from him. Medications: Aspirin, atorvastatin, enalapril, hydrochlorothiazide, and metoprolol. He is also currently on IV amiodarone. Allergies: NKDA: Pork: Unknown Mustard: Unknown Objective: Objective Information: T PRBPSpO2 [id number]/7096% Date/Time01/30 12: 15: 15: 15:451 04/02 15:45 Range(36.4C - 37.3C ) (56 - 87 ) (14 - 21 ) (104 - 152 )/ (53 - 78 ) (92% - 100% ) As of 31-Jan-2020 07:00:00, patient is o n 2 L/min of oxygen via nasal cannula. Highest temp of 37.3 C was recorded at 01/29 22:00 He is alert and oriented x2. Somnolent. He speak s to me with his eyes closed. HEENT no scleral icterus mucous members are dry neck n o clear JVP lungs basilar crackles heart regular rhythm normal S1-S2 the re is no S3 there is a 3/6 high-pitched crescendo decrescendo systolic murmur left lower sternal border to the right upper sternal border abdomen soft extremities no edema neuro difficult to assess Refresh Home Medications List: Select to Refresh Home Medication ListRefresh Home Med ications Medications: Medications: Continuous Medications 1. Amiodarone 360 mg/ D5W 200 mL Premix Infusion: 0.5 mg/min IntraVenous 2. Dextrose 5% - Lactated Ringers Infusion.: 1000 mL I ntraVenous Scheduled Medications 1. Ampicillin - Sulbactam 3 gm/NaCL 0.9% IVPB Soln 100 mL: 3 gram(s) IntraVenous Piggyback Every 12 Hours 2. diazePAM (VALIUM): 2.5 mg Oral Every 6 Hours 3. Enoxaparin SubCutaneous: 30 mg SubCutaneous Every 2 4 Hours 4. Folic Acid IV Piggy Back: 1 mg IntraVenous Piggybac k Daily 5. Gabapentin: 200 mg Oral 3 Times a Day 6. Insulin Glargine (Lantus) Injectable: 6 unit(s) Sub Cutaneous 2 Times a Day 7. Insulin Lispro Mild Corrective Scale: unit(s) SubCu taneous Every 4 Hours 8. Multivitamin with Minerals: 1 tablet(s) Oral Daily 9. Pantoprazole Injectable: 40 mg IntraVenous Push Jaelyn ry 24 Hours 10. Potassium Chloride Extended Release: 40 mEq Oral O nce 11. Thiamine IV Piggy Back: 500 mg IntraVenous Piggyba ck Daily 12. Topiramate: 25 mg Oral 2 Times a Day 13. Valproic Acid IV Piggy Back (Depacon): 500 mg Intr aVenous Piggyback Every 12 Hours PRN Medications 1. Dextrose 50% in Water Injectable: 25 gram(s) IntraV enous Push Every 15 Minutes 2. Glucagon Injectable: 1 mg IntraMuscular Every 15 Mi nutes 3. LORazepam Injectable: 1 mg IntraVenous Push Every 6 Hours Conditional Medication Orders 1. Perflutren Lipid Microsphere (Activated) 1.3 mL / N aCL 0.9% T.V. 10 mL Injectable: 0.5 mL IntraVenous Push Once Recent Lab Results: Results: I have reviewed these laboratory results: Potassium, Level Trending View [id number] 15:06:00 31-Jan-2020 11:03:00 K3.6 3.0 L Troponin I, Serum Trending View [id number] 15:06:00 31-Jan-2020 09:12:00 04:37:00 31-Jan-2020 00:33:00 Lab Comment:Called- RB to VASQUEZ, 01/31/2020 15:53 Radha led- RB to gareth , 01/31/2020 10:09 Called- RB to geraldine, 01/31/2020 06 :18 Called- RB to [email or web address], 01/31/2020 01:23 Troponin I, Serum0.41 HH 0.52 HH 0.60 HH 0.56 HH Complete Blood Count + Differential 31-Jan-2020 04:37: 00 ResultValue White Blood Cell Count 22.4 H Nucleated Erythrocyte Count 0.1 Red Blood Cell Count 3.01 L HGB 10.8 L HCT 33.6 L MCV 112 H MCHC 32.1 PLT 216 RDW-CV 14.5 Neutrophil % 92.1 Immature Granulocytes % 0.7 Lymphocyte % 2.2 Monocyte % 4.9 Eosinophil % 0.0 Basophil % 0.1 Neutrophil Count 20.61 H Lymphocyte Count 0.50 L Monocyte Count 1.09 H Eosinophil Count 0.00 Basophil Count 0.03 Renal Function Panel 31-Jan-2020 04:37:00 ResultValue Glucose, Serum 248 H NA 151 H K 3.0 L CL 114 H Bicarbonate, Serum 24 Anion Gap, Serum 16 BUN 57 H CREAT 1.92 H GFR-Non 35 A GFR- 42 A Calcium, Serum 8.1 L Phosphorus, Serum 2.7 ALB 2.5 L Magnesium, Serum 31-Jan-2020 04:37:00 ResultValue Magnesium, Serum 2.12 Radiology Results: Results: Impression: 1. Bibasilar atelectasis. The configuration of this on the right this is felt to account for curvilinear lucency, but a n abdominal series would be recommended to exclude free air if the re is referable abdominal symptomatology. An orange criticalfinding was reported to the ordering clinician after failed phone call attempts through [employer] report [employer] system at the time of dictation. Xray Chest 1 View [Jan 31 2020 3:04PM] Assessment: Past medical history: 1. Type 2 diabetes 2. Hypertension 3. History of alcoholism 4. Kidney issues 01/31/2020 1. Elevated troponin. Most likely due to demand ischemia rather than an acute coronary syndrome. No symptoms of angina. He has signi ficant rhabdomyolysis likely related to being found on the floor becau se of alcohol intake. We will start 1 baby aspirin daily. Statins if his liver enzymes tolerated. He was on atorvastatin prior to coming in. 2. Possible ventricular tachycardia. I see no evidence of this. I do not have the strips from [facility]. He has normal LV funct ion on his echo. Discontinue IV amnio. 3. Aortic stenosis. At least moderate. No specific the rapy is required at this time. 4. Hypertension. Currently his blood pressures are sammie sonably well controlled. At home he was on enalapril and hydrochlor othiazide along with metoprolol. Reinitiating metoprolol would be reasonabl e rather than amiodarone. Thanks for this consult I will follow along with you. Consult Status: Consult Order ID: [id number] Electronic Signatures: Donya Elias) (Signed 31-Jan-2020 16:04) Authored: Service, History of Present Illness, Allergi es, Objective, Assessment/Recommendations, Note Completion Last Updated: 31-Jan-2020 16:04 by Donya Elias) DRUG SCREEN,URINE on 01-31-2020 AMPHETAMINE SCREEN,U Negative Normal NEGATIVE [facility] Comment on above: Result Comment: CUTOFF LEVEL : 500 NG/ML Cross-reactivity has been re ported with high concentrations of the following drugs: bupr oprion, chloroquine, chlorpromazine, ephedrine, mephentermine, fe nfluramine, phentermine, phenylpropanolamine, pseudoe phedrine, and propranolol. Performed By: #### ALC #### [facility] [address] [place] [address] BARBITURATES SCREEN,U Negative Normal NEGATIVE [facility] Comment on above: Result Comment: CUTOFF LEVEL : 200 NG/ML Performed By: #### ALC #### [facility] [address] [place] [address] BENZODIAZEPINES SCREEN,U Negative Normal NEGATIVE [facility] Comment on above: Result Comment: CUTOFF LEVEL : 200 NG/ML Performed By: #### ALC #### [facility] [address] [place] [address] CANNABINOIDS SCREEN,U Negative Normal NEGATIVE [facility] Comment on above: Result Comment: CUTOFF LEVEL : 50 NG/ML Performed By: #### ALC #### [facility] [address] [place] [address] COCAINE METABOLITE SCREEN,U Negative Normal NEGATIVE [facility] Comment on above: Result Comment: CUTOFF LEVEL : 150 NG/ML Performed By: #### ALC #### [facility] [address] [place] [address] DRUG SCREEN COMMENT SEE BELOW Normal [facility] Comment on above: Result Comment: Drug screen results are presumptive and should not be used to assess compliance with prescribed m edication. Contact the performing [facility] laboratory to add-on definit shantell confirmatory testing if clinically indicated. . Toxicology screening results are reported qualitatively. The concentration must be greater than or equa l to the cutoff to be reported as positive. The concentration at which the s creening test can detect an individual drug or metabolite varies. The absen ce of expected drug(s) and/or drug metabolite(s) may indicate non-compliance, inappropriate timing of specimen collection relative to drug administrat ion, poor drug absorption, diluted/adulterated urine, or limitations of bhargavi ting. For medical purposes only; not valid for forensic use. . Interpretive questions shoul d be directed to the laboratory medical directors. Performed By: #### ALC #### [address] [address] METHADONE SCREEN,U Negative Normal NEGATIVE [facility] Comment on above: Result Comment: CUTOFF LEVEL : 150 NG/ML The metabolite U-nuyoz-urdva lmethadol (LAAM) is not detected by this method in c oncentrations that would be found in the urine of pat ients on LAAM therapy. Performed By: #### ALC #### [address] [address] OPIATES SCREEN,U Negative Normal NEGATIVE [facility] Comment on above: Result Comment: CUTOFF LEVEL : 300 NG/ML The opiate screen does not d etect fentanyl, meperidine, or tramadol. Oxycodone is not c onsistently detected (refer to Oxycodone Screen, Urine resu lt). Performed By: #### ALC #### [facility] [address] [place] [address] OXYCODONE SCREEN,U Negative Normal NEGATIVE [facility] Comment on above: Result Comment: CUTOFF LEVEL : 100 NG/ML This test will accurately de tect both oxycodone and oxymorphone. Performed By: #### ALC #### [facility] [address] [place] [address] PCP SCREEN,U Negative Normal NEGATIVE [facility] Comment on above: Result Comment: CUTOFF LEVEL : 25 NG/ML Cross-reactivity has been re ported with dextromethorphan. Performed By: #### ALC #### [address] [address] Daily Progress Note-Critical Care on 01-31-2020 Daily Progress Service: Critical Care Normal [facility] Note-Critical Care Medical C enter Subjective Data: JAGRUTI RAMIREZ is a 74 year old Male who is Hospital Day # 2. Objective Data: Objective Information: T PRBPSpO2 Value37.33921320/5392% Date/Time01/30 4: 10: 10: 10:11 9:00 Range(37.1C - 37.3C ) (56 - 87 ) (14 - 20 ) (108 - 152 )/ (53 - 78 ) (92% - 100% ) As of 31-Jan-2020 07:00:00, patient is o n 2 L/min of oxygen via nasal cannula. Highest temp of 37.3 C was recorded at 01/29 22:00 Pain reported at 01/30 7:45: 0 Pain reported at 01/30 0:30: 0 = None ---- Intake and Output ----- Mn/Dy/Year TimeIntakeOutputAt[facility] Jan 31, 2020 6:00 [id number] The Intake and Output Totals for the last 24 hours are : IntakeOutputNet [id number] Medication: Medications: Continuous Medications 1. Amiodarone 360 mg/ D5W 200 mL Premix Infusion: 0.5 mg/min IntraVenous 2. Dextrose 5% - Lactated Ringers Infusion.: 1000 mL I ntraVenous Scheduled Medications 1. Ampicillin - Sulbactam 3 gm/NaCL 0.9% IVPB Soln 100 mL: 3 gram(s) IntraVenous Piggyback Every 12 Hours 2. diazePAM (VALIUM): 2.5 mg Oral Every 6 Hours 3. Enoxaparin SubCutaneous: 30 mg SubCutaneous Every 2 4 Hours 4. Folic Acid IV Piggy Back: 1 mg IntraVenous Piggybac k Daily 5. Gabapentin: 200 mg Oral 3 Times a Day 6. Insulin Glargine (Lantus) Injectable: 6 unit(s) Sub Cutaneous 2 Times a Day 7. Insulin Lispro Mild Corrective Scale: unit(s) SubCu taneous Every 4 Hours 8. Multivitamin with Minerals: 1 tablet(s) Oral Daily 9. Pantoprazole Injectable: 40 mg IntraVenous Push Jaelyn ry 24 Hours 10. Potassium Chloride Extended Release: 40 mEq Oral O nce 11. Thiamine IV Piggy Back: 500 mg IntraVenous Piggyba ck Daily 12. Topiramate: 25 mg Oral 2 Times a Day 13. Valproic Acid IV Piggy Back (Depacon): 500 mg Intr aVenous Piggyback Every 12 Hours PRN Medications 1. Dextrose 50% in Water Injectable: 25 gram(s) IntraV enous Push Every 15 Minutes 2. Glucagon Injectable: 1 mg IntraMuscular Every 15 Mi nutes 3. LORazepam Injectable: 1 mg IntraVenous Push Every 6 Hours Conditional Medication Orders 1. Perflutren Lipid Microsphere (Activated) 1.3 mL / N aCL 0.9% T.V. 10 mL Injectable: 0.5 mL IntraVenous Push Once Recent Lab Results: Results: CBC: 01/31/2020 04:37 \ Hgb / \ 10.8 L / WBC Plt 22.4 H 216 / Hct \ / 33.6 L \ RBC: 3.01 L MCV: 112 H Neutrophil %: 92.1 CMP: 01/31/2020 00:33 NA+ Cl- BUN / 148 H 114 H 60 H / Glucose 209 H K+ HCO3- Creat \ 3.4 L 17 L 2.19 H \ \ T Bili / \ 0.3 / AST x ---- x ALT 200 Hx ---- x 64 H / Alk P \ / 71 \ Calcium : 8.0 L Anion Gap : 20 Albumin : 2.6 L T Prote in : 5.4 L RFP: 01/31/2020 04:37 NA+ Cl- BUN / 151 H 114 H 57 H / Glucose 248 H K+ HCO3- Creat \ 3.0 L 24 1.92 H \ Calcium : 8.1 LAnion Gap : 16 Albumin : 2.5 L Phos : 2 .7 Coagulation: 01/31/2020 04:37 PT / 16.1 H / -------< INR < 1.4 H PTT\ 34 \ Recent Arterial Blood Gas Results 01/31/2020 01:45 [id number] pH7.45 kCM208 SO299 Base Excess-3.0 [id number] I have reviewed these laboratory results: Troponin I, Serum Trending View [id number] 09:12:00 31-Jan-2020 04:37:00 Lab Comment:Called- RB to gareth , 01/31/2020 10:09 Radha led- RB to geraldine, 01/31/2020 06:18 Troponin I, Serum0.52 HH 0.60 HH Glucose_POCT 31-Jan-2020 07:59:00 ResultValue Glucose-POCT 193 H Coagulation Screen 31-Jan-2020 04:37:00 ResultValue Prothrombin Time, Plasma 16.1 H International Normalized Ratio, Plasma 1.4 H Activated Partial Thromboplastin Time 34 Complete Blood Count + Differential 31-Jan-2020 04:37: 00 ResultValue White Blood Cell Count 22.4 H Nucleated Erythrocyte Count 0.1 Red Blood Cell Count 3.01 L HGB 10.8 L HCT 33.6 L MCV 112 H MCHC 32.1 PLT 216 RDW-CV 14.5 Neutrophil % 92.1 Immature Granulocytes % 0.7 Lymphocyte % 2.2 Monocyte % 4.9 Eosinophil % 0.0 Basophil % 0.1 Neutrophil Count 20.61 H Lymphocyte Count 0.50 L Monocyte Count 1.09 H Eosinophil Count 0.00 Basophil Count 0.03 Renal Function Panel 31-Jan-2020 04:37:00 ResultValue Glucose, Serum 248 H NA 151 H K 3.0 L CL 114 H Bicarbonate, Serum 24 Anion Gap, Serum 16 BUN 57 H CREAT 1.92 H GFR-Non 35 A GFR- 42 A Calcium, Serum 8.1 L Phosphorus, Serum 2.7 ALB 2.5 L Calcium, Ionized Level 31-Jan-2020 04:37:00 ResultValue Calcium, Ionized Level 0.99 L Magnesium, Serum 31-Jan-2020 04:37:00 ResultValue Magnesium, Serum 2.12 Ethanol Level 31-Jan-2020 04:37:00 ResultValue Ethanol Level <10 Assessment and Plan: Comorbidities: Comorbidity: Other Code Status: Code StatusDNAR with Added Limitations Advance Care Planning: Advance Care Planning: Patient didn't wi sh to or was unable to provide advance care plan Assessment: Admission History: 7 year old Male Hx of HTN, HLP, ETOH use, neuropathy, lives alone, ambulates using a walker, presented to OSH ER with complaints of gen weakness for the last few days. He is confused and unable to answer que stions appropriately, data gathered from records. He apparentl y was found down on the floor possibly for > 24 hours. In the ER he was normotensiv e, VS stable, but appeared dehydrated with multiple wounds on skin, data showed evidence of rhabdomyolysis , KEN, metabolic acidosis, UA no signs of infection, COVI D negative, CXR right base infiltrate, CT head NAD, ECG sinus tachy, but per re cords the patient had runs of vtac. He was given boluses of fluid, placed on bicarb and amio gtt, given abx (zosyn, rocephin) The patient is confused, unable to provide HPI/S YS review. Data gathered from discussion with RN and reviewing the medical records PMH as above Social: + ETOH use, tob use, THC, lives alone family:HTN, DM, STROKE in FATHER Rx:asa, atorva, enalapril, HCTZ, METOP ALL: PORK, mustard Daily Progress: 01/31/20: Patient noted to be confused t his am. Per family, patient frequently drinks more then he should a nd has a tendency to use pills prescribed for other individuals. Echo being done at bedside, per cardiolog y, will try to obtain cath results that were done at OSH. Continue ami o ggt. Change medications for alcohol withdrawal. Optimize electrolytes. No ad ditional issues at this time. Current Medications: see above Review of Systems: Review of systems completed. Difficult t o obtain due to baseline mental status General: denies weight gain HEENT: denies headaches, dizziness, head trauma Respiratory: denies chest pain, dyspnea, cough and hem optysis Cardiovascular: denies orthopnea Gastrointestinal: denies pain, nausea vo miting, diarrhea, constipation, melena or bleeding. Genitourinary: denies hematuria, frequency Neurology: denies syncope, seizures, paralysis, paraes thesia Endocrine: denies polyuria, polydipsia Musculoskeletal: denies joint pain, swelling, arthriti s or myalgia Hematologic: denies bleeding, adenopathy and easy brui sing Skin: denies rashes and skin discoloration Psychiatry: denies depression Vital Signs: Reviewed Input/Output: Reviewed Oxygen requirements: Reviewed Ventilator Information: Reviewed Physical Exam: General appearance: Well developed, not in pain or dis tress, abraisons on forehead HEENT: Atraumatic/normocephalic, EOMI, MIGUEL Neck: Supple, no jugular venous distension, lymphadeno edmund Respiratory: Equal normal breath sounds, no wheezing, no crackles and no tenderness over ribs Cardiovascular: Normal S1, S2, regular rate and rhythm , no murmur, rub or gallop Abdomen: Normal sounds present, soft, lax with no tend erness, and no masses Extremities: No edema. Pulses are equally present. Skin: intact, no rashes Neurologic: Alert and oriented x 2-3, No focal deficit , lethargic Investigations: Labs, radiological imaging and cardiac work up were re viewed Assessment & Plan: Neurological System: Baseline Neuro function A&oX3 Current Neuro function A&OX2-3 #acute metabolic encephalopathy #alcohol abuse #polypharmacy #hx of TIA -patient known to be down for 2+ days per grandson -has history of alcohol abuse, in addition, noted to johana jacobs Qzzr perscribed for other individuals -tox screen negative -withdrawal protocol with sc heduled valium, ativan PRN, gabapentin, topamax and valproic acid -vitamins with folic acid and multivitamin -monitor neuro status Cardiovascular System: Last Echo: unknown #NSVT #type II mI, troponinemia #HTN #CAD #Severe sepsis without shock -continue IVF rescuitation, lactate normal -trend troponin -obtain echo -cardio following appreciate recommendations -elevated troponin likely demand ischemia secondary to acidosis and rhabdomyolysis -continue amio ggt, optimize electrolytes -will try and obtain records from recent cath at OSH Respiratory System: #aspiration PNA #Severe sepsis without shock #hypoxia -wean down O2 as tolerated -obtain speech eval due to likely aspiration -change abx to unasyn -elevate HOB to 30 degrees -monitor for aspiration Gastrointestinal System: Diet: nectar thick pureed Prophylaxis: #protonix for ppx Endocrine System: #hyperglycemia -ISS -add on lantus 6 BID Renal System: #rhamdomyolysis #Hypokalemia #hypernatremia #Metabolic Acidosis #KEN -was on group for 2+ days -elevated CK -agressive IVF rescuitation, D5-LR with 1 amp of bicar b -acidosis resolving -elevated NA due to poor oral intake -trend CMP -replete K+ Hematological System: #leukocytosis #anemia -likely anemia of chronic disease -leukocytosis likely reactive, monitor Infection Disease System: #aspiration PNA #sepsis severe without shock -change abx to unasyn -follow up on cultues #DVTppx -lovenox Signature/Cosignature/Attestation: Note Completion: I am a: Resident/Fellow Attending AttestationI saw and evaluated the patient. I personally obtained the pena and critical portions of the history and physi radha exam or was physically present for pena and critical portions perfo rmed by the resident/fellow. I reviewed the resident/fellows docum entation and discussed the patient with the resident/fellow. I agree with the resident/fellows medical decision making as documented in the note. I personally evaluated the patient [id number] Comments/ Additional Findings ICU STAFF PHYSICIAN NOTE OF PERSONAL INVOLVEMENT IN CA RE As the attending physician, I certify at I personally reviewed the patient's history and personally examined the patient to confirm the physical findings described above, and that I reviewed the relevant imaging studies and available reports. I also discussed the differential diagnosis a nd all of the proposed management plans with the patient and individual s accompanying the patient to this visit. They had the opportunity to ask questions about the proposed management plans and to have those questions answered. This patient has a high probability of sudden, clinica lly significant deterioration, which requires the highest level of phy sician preparedness to intervene urgently. I managed/supervised life or organ supporting interventions that required frequent physician assessm ent. I devoted my full attention to the direct care of this patient for the amount of time indicated below. Time I spent with family or surrogate(s) is inc luded only if the patient was incapable of providing the necessary information or participating in medical decision-making. Time devoted to teaching a nd to any procedures I billed separately is not included. Critical Care Time: 35 minutes Electronic Signatures: Christen Foreman) (Signed 01-Feb-2020 13:03) Authored: Note Completion Co-Signer: Service, Subjective Data, Obj ective Data, Assessment and Plan, Note Completion Tong Umana (DO (Resident)) (Signed 31-Jan-2020 1 1:27) Authored: Service, Subjective Data, Objective Da ta, Assessment and Plan, Note Completion Last Updated: 01-Feb-2020 13:03 by Christen Foreman) Discharge Planning Note2 on 01-31-2020 Discharge Planning Discharge Planning: Normal [facility] Medical Note2 Planned Dispositionskilled/rehab/extended care Center Discharge DestinationSNF waiting on acceptance AMPAC > 16no [place] of Choice Explainedyes patient/family has been given the Provider list Anticipated Discharge [id number] Discharge Planning TRANSITIONAL CRYSTALLIZER OPERATOR NOTE: 01/17 1155 PER NURSING ROUNDS PATIENT IS X1. I CALLED AND SPOKE TO DAUGHTER ASHOK [phone]. SHE STATES THAT HE LIVES ALONE. NO ONE IN [place] FOR HIM. HE SOMETIMES DRIVES. HE USES A CANE AND A WALKER. SHE DOES NOT KNOW HIS PCP. SHE STATES HE IS A SEVERE ALCOHOLIC AND NEEDS TO GO TO AN ECF. HE HAS NEVER BEEN TO ONE BEFORE. SHE IS NOT SURE OF HIS INSURANCE OR IF HE HAS COVERAGE FOR PRES CRIPTIONS. WILL NEED F/U. CHARO WANG RN [facility] 01/31/2020 01/31/2020 1550 SOCIAL WORK NOTE Sw received word from [facility] that patient ETOH abuse. Pat ient currently confused. SW will follow up when appropriate. Plan at discharge at this time is SNF. Dara Wooten, HISTORICAL GUIDE 01/31/2020 1400 PCN: Notified by [facility] that patient has been recommended for SNF. Called patient's daughter Ashok and emailed [facility]ann saucedo nursing list to her from [facility] directory that includes facilities that are within [facility], as well as meeting patients med ical needs, and are in-network for patients insurance; while also in [facility] [place] geographic area patient prefers, and identifies each fac ilities CMS star rating. Facilities in order of preference are 1. [facility] SNF 2. [facility] 3. [facility] . Referral will be submitted to above facilities for review. RONNIE Armenta 02/01/2020 9523 PCN: [facility] can not accept. [facility] do es not have bed availability. Spoke with Demetrice ([phone]) at [facility] SN[facility] and she did not receive referral. Re-faxed referral to and waiting on response. RONNIE Armenta update: Spoke with patient's daughter Ashok to update h er on facility responses. She requested another facilit y list in the [address] code area. List emailed to Ashok requesting top 3 facil ity preferences. Will follow. RONNIE Armenta update: Per Ashok, new preferences are: 1. [facility] 2. [facility] 3. [facility] 4. [facility] Referr als sent for review. RONNIE Armenta 02/01/2020 1340 SOCIAL WORK NOTE SW attempted to meet with th e patient at bedside, but patient is confused. Will follow up when appropriate. BONI Vance 02/02/2020 TIME 8:49am TRANSITIONAL CRYSTALLIZER OPERATOR N OTE Follow up note today. Pt's AmPac score is 8 and indicates SNF placement. Read the notes above and we are just waiting on acceptance to a facility at this time. Will continue to follow for final discha rge plan. Lola HAYDEN, RN, TCC. 02/02/2020 1247 PCN: Received responses from 1. [facility] not able to accept patients at this time 2. [facility] OON would have a 50% copay 3. [facility] will have a 50% copay 4. [facility] OON will have a 50% copay. Reviewed responses with daughter Ashok who stated patient will n ot be able to afford copay. Daughter is agreeable to send ref errals to any facility in the [address] or [address] zip code area that is in network w [facility] patients insurance. Referrals sent for review to 1.[facility] 2. [facility] 3. [facility]. RONNIE Blount, 02/03/2020 TIME 8:27AM TRANSITIONAL CRYSTALLIZER OPERATOR N OTE RECEIVED MESSAGE FROM DARLIN AT [facility] THEY CAN ACCEPT THE PT ON FRIDAY. PT WILL NEED COVID TEST AND RESULTS BEFORE THEY WILL T [place]. WILL LET THE PCN KNOW AND THE ATTENDING. Lola HAYDEN, RN, TCC. 02/03/2020 [id number] PCN: Left voice message for radha Carrillo to notify of acceptance at [facility] SN[facility]. RONNIE Blount, Addendum 1225: Received a call from radha Carrillo and [facility] is facility of preference. Leticia ent will not need precert. Pre-authorization waived due to COVID 19 Pandemic. RONNIE Blount, Assessment: Discharge Planning Assessment [id number] Primary Contact Name and Bon Gamble(1) Stated Reason for AdmissionUnable to answer/confused(1 ) Arrived Fromemergency department (1) Lives Withalone(1) Living Arrangementshouse(1) Resource/Environmental Concernsenvironmental(1) Anticipated Transition Toinpatient rehabilitation faci lity; senior living care facility(1) Services Anticipated at [facility] outside sales manager; [facility] nursing; rehabilitation services; mental health services; outpa tient care(1) Discharge Documentation: Discharge/Transfer Date/[id number] 22:00 Discharge [facility]retcher [facility] Electronic Signatures: Yin Wetzel (PCN) (Signed 02-Feb-2020 09:09) Authored: Discharge Planning Shannan Baerd (PCN) (Signed 03-Feb-2020 12:27) Authored: Discharge Planning Kishor Huff (RN) (Signed 05-Feb-2020 01:34) Authored: Discharge Planning, Discharge Documentation Charo Wang (PREFLIGHT INSPECTOR) (Signed 31-Jan-2020 11:57) Authored: Discharge Planning, Assessment Lola Christian (COOR) (Signed 03-Feb-2020 08:31) Authored: Discharge Planning Dara Wooten (SW) (Signed 01-Feb-2020 13:42) Authored: Discharge Planning Last Updated: 05-Feb-2020 01:34 by Kishor Huff (RN) References: 1. Data Referenced From Patient Profile - Adult v2 1 21-Jan-2020 02:43 GLUCOSE-POCT on 01-17 Glucose [Mass/Vol] 193 mg/dL High 74 - [address] [place] [address] Comment on above: Performed By: #### ALC #### [facility] [address] [place] [address] Glucose [Mass/Vol] 123 mg/dL High [facility] [address] [facility] Comment on above: Performed By: #### GLUPO ### #[facility] [place] [address] Glucose [Mass/Vol] 160 mg/dL High [address] [place] [address] Comment on above: Performed By: #### TROP2 ### # [facility] [address] [place] [address] Glucose [Mass/Vol] 143 mg/dL High 74 - 99 [facility] Comment on above: Performed By: #### PHOS #### [facility] [address] [place] [address] History and Physical on 01-31-2020 History and History of Present Illness: Normal [facility] Physical HPI: [facility] is a 77 year old Male Hx of HTN, HLP, E CESAR use, neuropathy, lives alone, ambulates using a walker, presented to OSH ER with complaints of gen weakness for the last few days. He is confused and unable to answer questions appropriately, data gathered from records. H e apparently was found down on the floor possibly for > 24 hours. In the ER he was normotensiv e, VS stable, but appeared dehydrated with multiple wounds on skin, data showed evidence of rhabdomyolysis , KEN, metabolic acidosis, UA no signs of infection, COVI D negative, CXR right base infiltrate, CT head NAD, ECG sinus tachy, but per re cords the patient had runs of vtac. He was given boluses of fluid, placed on bicarb and amio gtt, given abx (zosyn, rocephin) The patient is confused, unable to provide HPI/S YS review. Data gathered from discussion with RN and reviewing the medical records PMH as above Social: + ETOH use, tob use, THC, lives alone family:HTN, DM, STROKE in FATHER Rx:asa, atorva, enalapril, HCTZ, METOP ALL: PORK, mustard GOC discussion with family m lisa per OSH/signed document , patient is now DNR CCA, DNI Comorbidities: Comorbid Conditionsdiabetes, hypertension Diabtetes TypeType 2 Insulin Dependentno DM Acuity or Statusunknown DM Complicationsunknown Medications Prior to Admission: Admission Medication Reconciliation has not been compl eted for this patient. Review of Systems: Incomplete ROS: patient's impaired mental status Objective: Physical Exam by System: Constitutional: lethargic, awakes to voice, confused Eyes: PERRL, EOMI, clear sclera ENMT: mucous membranes dry, Head/Neck: Neck supple, scabs on forehead Respiratory/Thorax: Patent airways, crackles on right , no wheezing Cardiovascular: Regular rate ,tachycardic, + systolic murmurs, decreased peripheral pulses Gastrointestinal: wound right abdomen, + noncomplicate d hernia, NT, ABS Musculoskeletal: weak, evidence of injuries on extreme ties Extremities: 1+ E BL LE, no C/C Neurological: weakness symmetric BL UE/LE, speech inta ct, left facial droop Lymphatic: No significant lymphadenopathy Psychological: difficult to assess Skin: Warm and dry, multiple scab wounds on extr emeties and right mid abdomen Recent Lab Results: Results: data from OSH reviewed Radiology Results: Results: imaging from oshviewed see HPI Assessment and Plan: Assessment: Rhabdomyolysis acute kidney failure likely 2/2 above/dehydration Metabolic encephalopathy Nonsustained ventricular tachycardia RIGHT LUNG BASE infiltrates/pneumonia, suspect a spiration of stomach contents Severe sepsis without shock 2/2 above Metabolic acidosis Elevated troponins Hx of alcohol use, tobacco use, at risk of alcoh ol withdrawal /DT, last drink per records was 2 days ago Plan: IVF, bicarb gtt, monitor UO/RFP CIWA protocol continue amio gtt, trend trops, obtain e chocardiogram, replace electrolytes as needed obtain cx, antigens, cont abx, fu lactate trend FU chest imaging Wound care, PT/OT, speech therapy, SW and child support case officer consultation counseling on substance abuse Discussed with RN re management Signatures/Attestation/Certification: Note Completion: Attending Provider Inpatient Certification StatementI certify this patients need for inpatient care based on the above docum entation including; the order to admit as inpatient, the anticipated l ength of stay, diagnosis, problem list and plan of care, and discharge plan. Electronic Signatures: Mt Villalobos) (Signed 30-Jan-2020 23:34) Authored: History of Present Illness, Comorbidities, M edications Prior to Admission, Review of Systems, Objective, Assessm ent and Plan, Note Completion Last Updated: 30-Jan-2020 23:34 by Mt Villalobos) LACTATE on 0 Lactate [Moles/Vol] 1.8 mmol/L Normal 0.4 - 2.0 [facility] Comment on above: Result Comment: Venipuncture immediately after or during the administration of Metamizole may lead to falsely low results. Testing should be performed immediately prior to Metamizole dosing. Performed By: #### GLUPO ### # [facility] [address] [place] [id number] LEGIONELLA AG, URINE on 01-31-2020 Lab Specimen Source Normal [facility] Comment on above: Performed By: #### CMP #### [facility] [address] [place] [id number] LEGIONELLA AG, URINE Negative Normal Negative [facility] Comment on above: Result Comment: NEGATIVE FOR LEGIONELLA PNEUMOPHILIA SEROGROUP 1 ANTIGEN IN URINE , SUGGESTING NO CURRENT OR PAS T INFECTION. Performed By: #### CMP #### [address] [address] LIPASE on 01-31-2020 Lipase [Catalytic activity/Vol] Canceled Normal [facility] Comment on above: Order Comment: Specimen ashli ection performed by Alternate [employer]: [email or web address] Result Comment: Venipuncture immediately after or during the administration of Metamizole may lead to falsely low results. Testing should be performed immediately prior to Metamizole dosing. Performed By: #### PHOS #### [address] [address] Lipase [Catalytic activity/Vol] 293 U/L High 9 - 82 [facility] Comment on above: Result Comment: Venipuncture immediately after or during the administration of Metamizole may lead to falsely low results. Testing should be performed immediately prior to Metamizole dosing. Performed By: #### GLUPO ### # [address] [address] MAGNESIUM on 020 Magnesium [Mass/Vol] 2.16 mg/dL Normal 1.60 - 2.40 [facility] Comment on above: Performed By: #### PHOS #### [address] [address] Magnesium [Mass/Vol] 2.12 mg/dL Normal 1.60 - 2.40 [facility] Comment on above: Performed By: #### CBC #### [address] [address] PHOSPHORUS on 2019 Phosphate [Mass/Vol] 3.8 mg/dL Normal 2.5 - 4.9 [facility] Comment on above: Result Comment: The performa nce characteristics of phosphorus testing in heparinized plasma have been validated by the individual laboratory site where bhargavi ting is performed. Testing on heparinized plasma is not approved by the FDA; however, such approval is no t necessary. Performed By: #### GLUPO ### # [facility] [address] [place] [address] POTASSIUM on 020 Potassium [Moles/Vol] 3.0 mmol/L Low 3.5 - 5.3 [facility] Comment on above: Performed By: #### TROP2 ### # [facility] [address] [place] [address] Potassium [Moles/Vol] 3.6 mmol/L Normal 3.5 - 5.3 [facility] Comment on above: Performed By: #### CMP #### [facility] [address] [place] [address] Patient Profile - Adult v2 on 01-31-2020 Patient Profile - Profile: Normal [facility] edical Adult v2 Initial Info: Center How to be AddressedDavid Spoken Language PreferredEnglish Source of Informationpatient Stated Reason for AdmissionUnable to answer/confused Primary Contact Name and NumberPatsy Gamble Other Contact Names and [phone] Patient Belongingsremains with patient Patient Belongings Remaining with Patientcash/credit c mami Arrived Fromemergency department Medications Brought to Hospitalyes Medication Dispositionbedside Are you currently using the Personal Electronic Health Record or [employer] Wants Family/Rep Notified of Admissionyes, primary con tact Notify PCPdeferred, unable to answer Informed of Patient Visiting Rightsye General Health: Weight in kg58.4 kilogram(s)(1) Weight in nlx298.7 pound(s) Weight Methodactual (measured) (1) Scale Typebed (1) Height in cm165.1 centimeter(s) Height in feet5 feet(1) Height in inches5 inch(es)(1) Height Methodstated BMI (kg/m2)21.424 square meter RSP Based Care: How would you like to participate in your careunable t o answer What is the number one concern for you during this hos pitalizationunable to answer What is the most important thing we can do to support you during this hospitalizationunable to answer Is there anything we need to know to best care for you unable to answer Substance: Current or Former Substance Use YES: Cigarette/Tobacco , Alcohol Tobacco Cessation Education (provide if tobacco use within the last 12 mos)yes Other Tobacco Use Commentspt states I smoke too much Alcohol Use Statuscurrent alcohol Alcohol Last Uselast use in ED report 48 hours ago Problems Related to Alcohol Useyes Alcohol Withdrawal Patterndisorientation; irritability Attempts to Quit Alcoholnone Alcohol Use Additional Commentsunable to answer how much he drinks/Dr. Villalobso spoke with daughter regarding father's drinking and hx of alcoholism Health Mgmt: Symptoms/Conditions Managed at Homehematologic; cardio vascular Cardiovascular Symptoms/Conditionshypertension Cardiovascular Management Strategiesmedication therapy Cardiovascular Managementnot managed Hematologic Symptoms/Conditionsanemia Hematologic Managementnot managed Barriers to Managing Healthunderstanding health advice Relationship/Environ: Resource/Environmental Concernsenvironmental Primary Source of Support/Comfortchild(vikki); extended family Lives Withalone Living Arrangementshouse Services Anticipated at [facility] outside sales manager; [facility] nursing; rehabilitation services; mental health services; outpa tient care Anticipated Transition Toinpatient rehabilitation faci lity; senior living care facility Significant IndicatorsComplete Information Review: Allergies, Home Meds and Significant Events have been Reviewed and Verified with Patient/Familyyes, reviewed meds and documented w hat transport team brought from [place] ED ALLERGY, INTOLERANCE, ADVERSE EVENT: Allergies: NKDA: Active Pork: Food, Unknown, Active Mustard: Food, Unknown, Active Problem List: Additional Dx: Type 2 diabetes mellitus: Catalog Name: Type 2 diabete s mellitus Surg History: Rhabdomyolysis: Catalog Name: Rhabdomyolysis Electronic Signatures: Mey Ronquillo (NANCY) (Signed 31-Jan-2020 03:10) Authored: Initial Info, General Health, RSP Based Care , Substance, Health Mgmt, Relationship/Environ, Additional Information Last Updated: 31-Jan-2020 03:10 by Mey Ronquillo (NANCY) References: 1. Data Referenced From 1. Vital Signs 30-Jan-2020 2 3:00 RENAL FUNCTION PANEL on 01-31-2020 Albumin [Mass/Vol] 2.5 g/dL Low 3.4 - 5.0 [facility] Comment on above: Performed By: #### RENAL ### #[facility] [place] [address] Anion gap [Moles/Vol] 16 mmol/L Normal 10 - 20 [facility] Comment on above: Performed By: #### RENAL ### #[facility] [place] [address] Calcium [Mass/Vol] 8.1 mg/dL Low 8.6 - 10.3 [facility] Comment on above: Performed By: #### RENAL ### [address] [address] Chloride [Moles/Vol] 114 mmol/L High 98 - 107 [facility] Comment on above: Performed By: #### RENAL ### [address] [address] Creatinine [Mass/Vol] 1.92 mg/dL High 0.50 - 1.30 [facility] Comment on above: Performed By: #### RENAL ### [address] [address] GFR- AM. 42 mL/min/1.73m2 Abnormal >60 [facility] Comment on above: Result Comment: CALCULATIONS OF ESTIMATED GFR ARE PERFORMED USING THE MDRD STUDY EQUATIO N FOR THE IDMS-TRACEABLE CREATININE ME THODS. CLIN CHEM 2007;53:766-72 This is a corrected result. Previous value was 41, verified at 01/31/2020 06:14 Performed By: #### RENAL ### [address] [address] GFR-NON AM. 35 mL/min/1.73m2 Abnormal >60 [facility] Comment on above: Result Comment: This is a co rrected result. Previous value was 34, verified at 01/31/2020 06:14 Performed By: #### RENAL ### #[facility] [place] [address] Glucose [Mass/Vol] 248 mg/dL High 74 - 99 [facility] Comment on above: Performed By: #### RENAL ### [address] [address] HCO3 (Bld) [Moles/Vol] 24 mmol/L Normal 21 - 32 [facility] Comment on above: Performed By: #### RENAL ### [address] [place] [address] Phosphate [Mass/Vol] 2.7 mg/dL Normal 2.5 - 4.9 [facility] Comment on above: Result Comment: The performa nce characteristics of phosphorus testing in heparinized plasma have been validated by the individual laboratory site where bhargavi ting is performed. Testing on heparinized plasma is not approved by the FDA; however, such approval is no t necessary. Performed By: #### RENAL ### #[facility] [place] [address] Potassium [Moles/Vol] 3.0 mmol/L Low 3.5 - 5.3 [facility] Comment on above: Performed By: #### RENAL ### [address] [address] Sodium [Moles/Vol] 151 mmol/L High 136 - 145 [facility] Comment on above: Performed By: #### RENAL ### [address] [address] Urea nitrogen [Mass/Vol] 57 mg/dL High 6 - 23 [facility] Comment on above: Performed By: #### RENAL ### [address] [address] S.PNEUMONIAE AG,U on 01-31-2020 S.PNEUMONIAE AG,U Negative Normal Negative [facility] Comment on above: Result Comment: Presumptive negative for pneumococcal pneumonia, suggesting no current or recent infecti on. Infection due to S. pneumoniae cannot be ruled out since th e antigen present in the sample may be below the detection l imit of the test. Performed By: #### TROP2 ### # [facility] [address] [place] [address] Swallow Evaluation v2-Bedside Clinical S wallow on 01-31-2020 Swallow Evaluation Rehab: Normal [facility] v2-Bedside Clinical Info: Center Swallow Time IN09:00 Time OUT09:30 Total Treatment [id number] Communicated with ... at end of sessionbedside nurse; reviewed results and recommendations with nurse Mtz. reviewed diet recomme ndations with Evaluation TypeBedside Clinical Swallow CLEANING AND MAINTENANCE WORKER: Individual (minutes)30 CLEANING AND MAINTENANCE WORKER: Evaluation (minutes)30 Total Treatment Time (minutes)30 Patient Effortadequate Symptoms Noted During/After Treatmentfatigue Patient Profile Reviewedyes Onset of Illness/Injury or Date of [id number] Reason for Referralr/o dysphagia Referring PhysicianDr Villalobos General Observations of PatientPt's eyes closed for ma jority of eval. Pt appeared [place] with some confusion in conversation. Pertinent History of Current Functional ProblemPt admi tted to OSH ED with generalized weakness over last few days. Pt apparently found down on the floor for questionable amount of time. Unable to answer questions; confused. Pt from home alone. CXR 01/30-results pending. WBC-22.4 (high) , pt on RA. Pt NPO. HX: HTN, HLP, ETOH use, neur opathy, KEN, rhabdomyolysis, metabolic acidosis, DM type 2 Hearing Precautions/Limitationspt appears [place] to this ST. no RAI present. Precautions/Limitationsfall precautions Pre Treatment Oxygen Deliveryroom air During Treatment Oxygen Deliveryroom air Post Treatment Oxygen Deliveryroom air Impression: CLEANING AND MAINTENANCE WORKER Swallowing Diagnosismild dysphagia Assessment (Swallow Eval)Pt exhibiting a mild dy sphagia overall compounded by poor SISSY and confusion. Pt had difficulty follow ing commands to complete full oral mech exam. Lingual protrusion reduced and limited with dry oral cavity evident. Natural dentition but limited lower/back. Thi s therapist could not appreciate a facial droop. C onfusion in conversation and appears [place]. Pt sat up in bed with/ nursing assist. Given puree trials along with nectar thick via tsp and cup and thin liquid via tsp. Pt's eyes were closed majority of eval. Pt begging for water and repeat edly stating he is dehydrated. Adequate tolerance of puree trials along with nectar thick water via tsp and sip cup. Given limited amount of thin water via tsp with delaye d swallow response noted with all PO trials. Hyolaryngeal elevation is reduced overall. Cough x1 after larger sip of uncontrolled nectar water via sip cup. Pt note appropriate for solid trials at this time based up on lethargy and confusion. Reviewed recommendations with nurse and posted feeding guidelines above HOB. Rehab Potential/Prognosis (Swallow Eval)adequate, lotus tor progress closely Speech Therapy Recommendationspuree diet with nectar ( mildly) thick liquids. pt will need assist at meals/may need fed. pt should b e fully awake with PO intake. meds crushed in sauce/puree carrier. Criteria for Skilled Therapeutic Interventions Met (Sw allow Eval)yes Therapy Frequency (CLEANING AND MAINTENANCE WORKER)2 times/wk Predicted Duration of Therapy [id number] days Expected Duration Therapy [id number] minutes; 30 minute s CLEANING AND MAINTENANCE WORKER Diet Recommendations (Swallow Eval)nectar thick li quids; puree Recommended Feeding/Eating Techniques (Swallow Eval)al ternate between small bites and sips of food/liquid& crush meds& feed upright in 90 degree position slow rate& no straws& small sips/bites Monitor for Signs of Aspiration (Swallow Eval)cough; g urgly voice; throat clearing; fever; pneumonia CSE: Mode of Presentation, Thin Liquid (CSE)fed by clinicia n; spoon Volume and Consistency Presented, Thin Liquid (CSE)x8 Oral Phase Results, Thin Liquid (CSE)mildly reduced co ntrol of thin liquids Oral Transit Concerns, Thin Liquid (CSE)oral transit d elayed Pharyngeal Phase Results, Thin Liquid (CSE)impaired ph aryngeal phase of swallowing Laryngeal Observations, Thin Liquid (CSE)laryngeal roscoe vation mildly impaired Comment, Thin Liquid (CSE)delayed swallow response wit h reduced SISSY Mode of Presentation, [facility] Thick Liquid (CSE)fed by clinician; spoon; cup Volume and Consistency Presented, [facility] Thick Liquid (CSE)x12 Oral Phase Results, [facility] Thick Liquid (CSE)intact or al phase without signs of dysfunction Oral Transit Concerns, [facility] Thick Liquid (CSE)oral t ransit delayed, more than 1 second Pharyngeal Phase Results, [facility] Thick Liquid (CSE)saf e swallow, no signs/symptoms of aspiration or penetration Laryngeal Observations, [facility] Thick Liquid (CSE)laryn geal elevation mildly impaired Comment, [facility] Thick Liquid (CSE)cough x1 after large , uncontrolled cup sip Mode of Presentation, Puree (CSE)fed by clinician Volume and Consistency Presented, Puree (CSE)x8 Oral Phase Results, Puree (CSE)intact oral phase without signs of dysfunction Oral Transit Concerns, Puree (CSE)oral transit delayed , more than 1 second Pharyngeal Phase Results, Puree (CSE)safe swallow, no signs/symptoms of aspiration or penetration Laryngeal Observations, Puree (CSE)laryngeal elevation mildly impaired Feeding Assistance (CSE)needs constant supervision dur ing self-feeding activity Recommended Liquid Modification (CSE)thicken liquids t o nectar consistency Rationale for Liquid Modification (CSE)decrease risk o f airway penetration/compromise; decrease the particulate natur e of food; slow liquid bolus transit; enhance swallow function Liquid Bolus Volume Modification (CSE)decrease to smal ler bolus volume Liquid Bolus Volume Modification Rationale (CSE)decrea se risk of airway penetration/compromise; increase control /safety with transit of bolus; enhance swallow function Recommended Food Modification (CSE)level 1, dysphagia pureed diet Rationale for Food Modification (CSE)all ow formation and increased cohesion of bolus; decrease the need for chewing; decrease risk of airway penetration/compromise; slow liquid bolus transit; enh ance swallow function Food Bolus Volume Modification (CSE)decrease to smalle r bolus volume Food Bolus Volume Modification Rationale (CSE)decrease risk of airway penetration/compromise; enhance swallow function; incr ease sensory input; increase control/safety with transit of bolus Short Term Goals: Dysphagia/Swallow: Established [id number] Dysphagia/Swallow: Goal Details1. Pt will tolerate a p uree diet with mildly thick liquids without overt signs and symptoms aspirat ion. 2. Assess tolerance to advance diet if/when deemed vivian ropriate by ST. Dysphagia/Swallow: Time Frame for Goal1 wk Crane Oiler Goals: Dysphagia: Established [id number] Dysphagia: Goal DetailsPt will tolerate LRD without ev idence of dysphagia. Dysphagia: Time Frame for Goal2 wks Electronic Signatures: Ayla Camara (CLEANING AND MAINTENANCE WORKER) (Signed 31-Jan-2020 10:03) Authored: Info, Impression, CSE, Short Term Goals, Wojciech g Term Goals Last Updated: 31-Jan-2020 10:03 by Ayla Camara (CLEANING AND MAINTENANCE WORKER) TROPONIN I on 2019 Troponin I.cardiac 0.56 ng/mL Critically high 0.00 - 0.03 [facility] [Mass/Vol] Center Comment on above: Order Comment: Called- RB to [email or web address], 01/31/2020 01:23 Result Comment: LESS THAN 0. 04 NG/ML: NEGATIVE REPEAT TESTING IN THREE TO S IX HOURS IF CLINICALLY INDICATED. 0.04 - 0.5 NG/ML: CONSISTENT WITH POSSIBLE CARDIAC DAMAGE AND POSSIBLE INCREASED CLINICAL RISK. SERIAL MEASUREMENTS MAY HELP ASSESS EXTENT OF MYOCARDIAL DAMAGE. >0.5 NG/ML: CONSISTENT WITH CARDIAC DAMAGE, INCREASED CLINICAL RISK AND MYOCARDIAL INFARCTION. SERIAL MEASUREME NTS MAY HELP ASSESS EXTENT OF MYOCARDIAL DAMAGE. . Note: Troponin I testing is performed using different testing methodology at [facility] than at other [facility]. Direct res ult comparisons should only be made within the same meth od. Called- RB to [place] 1060501/17 01:23 Performed By: #### TROP2 ### # [facility] [address] [place] [address] Troponin I.cardiac 0.60 ng/mL Critically high 0.00 - 0.03 [facility] [Mass/Vol] [place] Comment on above: Order Comment: Called- RB to [place] [address], 01/31/2020 06:18 Result Comment: LESS THAN 0. 04 NG/ML: NEGATIVE REPEAT TESTING IN THREE TO S IX HOURS IF CLINICALLY INDICATED. 0.04 - 0.5 NG/ML: CONSISTENT WITH POSSIBLE CARDIAC DAMAGE AND POSSIBLE INCREASED CLINICAL RISK. SERIAL MEASUREMENTS MAY HELP ASSESS EXTENT OF MYOCARDIAL DAMAGE. >0.5 NG/ML: CONSISTENT WITH CARDIAC DAMAGE, INCREASED CLINICAL RISK AND MYOCARDIAL INFARCTION. SERIAL MEASUREME NTS MAY HELP ASSESS EXTENT OF MYOCARDIAL DAMAGE. . Note: Troponin I testing is performed using different testing methodology at [facility] than at other [facility]. Direct res ult comparisons should only be made within the same meth od. Called- RB to [place] 1060501/17 06:18 Performed By: #### ALC #### [facility] [address] [place] [address] Troponin I.cardiac 0.52 ng/mL Critically high 0.00 - 0.03 [facility] [Mass/Vol] [place] Comment on above: Order Comment: Called- RB to [facility] 01/31/2020 10:09 Result Comment: LESS THAN 0. 04 NG/ML: NEGATIVE REPEAT TESTING IN THREE TO S IX HOURS IF CLINICALLY INDICATED. 0.04 - 0.5 NG/ML: CONSISTENT WITH POSSIBLE CARDIAC DAMAGE AND POSSIBLE INCREASED CLINICAL RISK. SERIAL MEASUREMENTS MAY HELP ASSESS EXTENT OF MYOCARDIAL DAMAGE. >0.5 NG/ML: CONSISTENT WITH CARDIAC DAMAGE, INCREASED CLINICAL RISK AND MYOCARDIAL INFARCTION. SERIAL MEASUREME NTS MAY HELP ASSESS EXTENT OF MYOCARDIAL DAMAGE. . Note: Troponin I testing is performed using different testing methodology at [facility] than at other [facility]. Direct res ult comparisons should only be made within the same meth od. Called- RB to [facility] 2019 10:09 Performed By: #### TROP2 ### #[facility] [place] [address] Troponin I.cardiac 0.41 ng/mL Critically high 0.00 - 0.03 [facility] [Mass/Vol] [place] Comment on above: Order Comment: Called- RB to [facility], 01/31/2020 15:53 Result Comment: LESS THAN 0. 04 NG/ML: NEGATIVE REPEAT TESTING IN THREE TO S IX HOURS IF CLINICALLY INDICATED. 0.04 - 0.5 NG/ML: CONSISTENT WITH POSSIBLE CARDIAC DAMAGE AND POSSIBLE INCREASED CLINICAL RISK. SERIAL MEASUREMENTS MAY HELP ASSESS EXTENT OF MYOCARDIAL DAMAGE. >0.5 NG/ML: CONSISTENT WITH CARDIAC DAMAGE, INCREASED CLINICAL RISK AND MYOCARDIAL INFARCTION. SERIAL MEASUREME NTS MAY HELP ASSESS EXTENT OF MYOCARDIAL DAMAGE. . Note: Troponin I testing is performed using different testing methodology at [facility] than at other [facility] hospitals. Direct res ult comparisons should only be made within the same meth od. Called- RB to [facility], 2019 15:53 Performed By: #### TROP2 ### #[facility] [place] [address] .GFR on 01-30-2020 GFR 22 ml/min/1.73sqm Normal [facility] ([place]) Comment on above: Result Comment: GFR Population mean for Afri can [place], Non- Americans Ages 20-29 = 116 mL/min/1.73 sq.m. Ages 30-39 = 107 mL/min/1.73 sq.m. Ages 40-49 = 99 mL/min/1.73 sq.m. Ages 50-59 = 93 mL/min/1.73 sq.m. Ages 60-69 = 85 mL/min/1.73 sq.m. Ages 70+ = 75 mL/min/1.73 sq .m. Chronic Kidney Disease: Less than 60 mL/min/1.73 square meters End Stage Renal Disease: Les s than 15 mL/min/1.73 square meters Performed By: #### TAMRA POOLE #### [address] [address] #### UA #### [address] [address] GFR 29 ml/min/1.73sqm Normal [facility] ([place]) Comment on above: Result Comment: GFR Population mean for Afri can [place], Non- Americans Ages 20-29 = 116 mL/min/1.73 sq.m. Ages 30-39 = 107 mL/min/1.73 sq.m. Ages 40-49 = 99 mL/min/1.73 sq.m. Ages 50-59 = 93 mL/min/1.73 sq.m. Ages 60-69 = 85 mL/min/1.73 sq.m. Ages 70+ = 75 mL/min/1.73 sq .m. Chronic Kidney Disease: Less than 60 mL/min/1.73 square meters End Stage Renal Disease: Les s than 15 mL/min/1.73 square meters Performed By: #### GFR #### [address] [address] #### BMP #### [address] [address] GFR Non- 18 ml/min/1.73sqm Normal [facility] ([place]) Comment on above: Result Comment: GFR Population mean for Afri can [place], Non- Americans Ages 20-29 = 116 mL/min/1.73 sq.m. Ages 30-39 = 107 mL/min/1.73 sq.m. Ages 40-49 = 99 mL/min/1.73 sq.m. Ages 50-59 = 93 mL/min/1.73 sq.m. Ages 60-69 = 85 mL/min/1.73 sq.m. Ages 70+ = 75 mL/min/1.73 sq .m. Chronic Kidney Disease: Less than 60 mL/min/1.73 square meters End Stage Renal Disease: Les s than 15 mL/min/1.73 square meters Performed By: #### KUR, OSMO U #### [address] [address] #### UA #### [address] [address] GFR Non- 24 ml/min/1.73sqm Normal [facility] ([place]) Comment on above: Result Comment: GFR Population mean for Afri can [place], Non- Americans Ages 20-29 = 116 mL/min/1.73 sq.m. Ages 30-39 = 107 mL/min/1.73 sq.m. Ages 40-49 = 99 mL/min/1.73 sq.m. Ages 50-59 = 93 mL/min/1.73 sq.m. Ages 60-69 = 85 mL/min/1.73 sq.m. Ages 70+ = 75 mL/min/1.73 sq .m. Chronic Kidney Disease: Less than 60 mL/min/1.73 square meters End Stage Renal Disease: Les s than 15 mL/min/1.73 square meters Performed By: #### GFR #### [place] [address] #### BMP #### [place] [address] .Manual Diff on 01-17-2019 Basophil %, Manual 0.0 % Normal 0.0-2.5 [facility] ([place]) Comment on above: Performed By: #### GFR #### [place] [address] #### BMP #### [place] [address] Basophil, Abs Manual 0.00 10 3/mcL Normal 0.00-0.19 [facility] ([place]) Comment on above: Performed By: #### GFR #### [place] [address] #### BMP #### [place] [address] Eosinophil %, Manual 0.0 % Normal 0.0-7.0 [facility] ([place]) Comment on above: Performed By: #### GFR #### [place] [address] #### BMP #### [place] [address] Eosinophil, Abs Manual 0.00 10 3/mcL Normal 0.00-0.40 [facility] ([place]) Comment on above: Performed By: #### GFR #### [place] [address] #### BMP #### [address] [address] Lymphocyte %, Manual 4.0 % Low 10.0-50.0 [facility] ([place]) Comment on above: Performed By: #### GFR #### [place] [id number] #### BMP #### [address] [address] Lymphocyte, Abs Manual 1.40 10 3/mcL Normal 0.77-3.85 [facility] ([place]) Comment on above: Performed By: #### GFR #### [place] [address] #### BMP #### [address] [address] Monocyte %, Manual 6.0 % Normal 1.7-13.0 [facility] ([place]) Comment on above: Performed By: #### GFR #### [place] [address] #### BMP #### [address] [address] Monocyte, Abs Manual 2.10 10 3/mcL High 0.15-1.00 [facility] ([place]) Comment on above: Performed By: #### GFR #### [place] [address] #### BMP #### [address] [address] Neutrophil %, Manual 90.0 % High 37.0-80.0 [facility] ([place]) Comment on above: Performed By: #### GFR #### [place] [address] #### BMP #### [address] [address] Neutrophil, Abs Manual 31.60 10 3/mcL High 2.85-6.16 [facility] ([place]) Comment on above: Performed By: #### GFR #### [place] [address] #### BMP #### [address] [address] .Morph on 01-30-2020 Platelet Estimate Normal Normal [facility]) Comment on above: Performed By: #### GFR #### [address] [address] #### BMP #### [address] [address] .Urinalysis Microscopic (AO) on 01-30-2020 UA RBC 0-5 Abnormal None Seen [facility] ([place]) Comment on above: Performed By: #### VIRGILIO, OSMO U #### [address] [address] #### UA #### [address] [address] UA Squam Epithelial 0-5 Abnormal None Seen [facility] ([place]) Comment on above: Performed By: #### KUR, OSMO U #### [place] [address] #### UA #### [address] [address] UA WBC None Seen Normal None Seen [facility] ([place]) Comment on above: Performed By: #### VIRGILIO, OSMO U #### [address] [address] #### UA #### [address] [address] BMP on 01-30-2020 BUN/Creatinine Ratio 25 ratio Normal 7-27 [facility]) Comment on above: Order Comment: specimen hemo lyzed. called ER ja Performed By: #### GFR #### [address] [address] #### BMP #### [address] [address] Calcium [Mass/Vol] 7.8 mg/dL Low 8.4-10.2 [facility] ([place]) Comment on above: Order Comment: specimen hemo lyzed. called ER ja Performed By: #### GFR #### [address] [address] #### BMP #### [address] [address] Chloride [Moles/Vol] 115 mmol/L High 98-107 [facility] ([place]) Comment on above: Order Comment: specimen hemo lyzed. called ER ja Performed By: #### GFR #### [place] [address] #### BMP #### [address] [address] CO2 [Moles/Vol] 12 mmol/L Low 23-31 [facility] ([place]) Comment on above: Order Comment: specimen hemo lyzed. called ER ja Performed By: #### GFR #### [place] [address] #### BMP #### [address] [address] Creatinine [Mass/Vol] 2.66 mg/dL High 0.70-1.30 [facility] ([place]) Comment on above: Order Comment: specimen hemo lyzed. called ER ja Performed By: #### GFR #### [place] [address] #### BMP #### [address] [address] Electrolyte Balance 25.0 mEq/L Normal [facility] ([place]) Comment on above: Order Comment: specimen hemo lyzed. called ER ja Performed By: #### GFR #### [address] [address] #### BMP #### [address] [address] Glucose [Mass/Vol] 154 mg/dL High 83-110 [facility] ([place]) Comment on above: Order Comment: specimen hemo lyzed. called ER ja Performed By: #### GFR #### [address] [address] #### BMP #### [address] [address] Potassium [Moles/Vol] 4.5 mmol/L Normal 3.5-5.1 [facility] ([place]) Comment on above: Order Comment: specimen hemo lyzed. called ER ja Performed By: #### GFR #### [address] [address] #### BMP #### [address] [address] Sodium [Moles/Vol] 152 mmol/L High 136-145 [facility] ([place]) Comment on above: Order Comment: specimen hemo lyzed. called ER ja Performed By: #### GFR #### [address] [address] #### BMP #### [place] [address] Urea nitrogen [Mass/Vol] 66 mg/dL High 7-18 [facility] ([place]) Comment on above: Order Comment: specimen hemo lyzed. called ER ja Performed By: #### GFR #### [place] [address] #### BMP #### [place] [address] CBC on 01-30-2020 Erythrocyte distribution width 14.6 % High 11.5-14.5 [facility] ([place]) (RBC) [Ratio] Comment on above: Performed By: #### GFR #### [place] [address] #### BMP #### [place] [address] Hematocrit (Bld) [Volume 42.7 % Normal 42.0-52.0 [facility] ([place]) fraction] Comment on above: Performed By: #### GFR #### [place] [address] #### BMP #### [address] [address] Hgb 13.8 G/dL Low 14.0-18.0 [facility] ([place]) Comment on above: Performed By: #### GFR #### [place] [address] #### BMP #### [place] [address] MCH (RBC) [Entitic mass] 35.5 pg High 27.0-31.2 [facility] ([place]) Comment on above: Performed By: #### GFR #### [place] [address] #### BMP #### [place] [address] MCHC 32.4 G/dL Normal 31.8-35.4 [facility] ([place]) Comment on above: Performed By: #### GFR #### [place] [address] #### BMP #### [place] [address] MCV (RBC) [Entitic vol] 109.4 fL High 80.0-94.0 [facility] ([place]) Comment on above: Performed By: #### GFR #### [place] [address] #### BMP #### [place] [address] Platelet 288 10 3/mcL Normal 130-400 [facility] ([place]) Comment on above: Performed By: #### GFR #### [place] [address] #### BMP #### [place] [address] Platelet mean volume (Bld) 10.0 fL Normal 7.4-10.4 [facility] ([place]) [Entitic vol] Comment on above: Performed By: #### GFR #### [place] [address] #### BMP #### [place] [address] RBC 3.91 10 6/mcL Low 4.04-6.13 [facility] ([place]) Comment on above: Performed By: #### GFR #### [address] [address] #### BMP #### [place] [address] WBC 35.10 10 3/mcL Critically abnormal 4.60-10.80 [facility] ([place]) Comment on above: Performed By: #### GFR #### [place] [address] #### BMP #### [place] [address] CK on 01-30-2020 CPK >7000 High 39-308 [facility] ([place]) Comment on above: Performed By: #### GFR #### [place] [address] #### BMP #### [place] [address] CMP on 01-30-2020 Albumin Level 3.2 G/dL Low 3.4-4.8 [facility] ([place] Comment on above: Performed By: #### VIRGILIO OSMO U #### [place] [address] #### UA #### [address] [address] Albumin/Globulin [Mass ratio] 0.7 {ratio} Low 1.1-2.5 [facility] ([place]) Comment on above: Performed By: #### VIRGILIO OSMO U #### [place] [address] #### UA #### [address] [address] ALP [Catalytic activity/Vol] 129 U/L Normal 40-135 [facility] ([place] Comment on above: Performed By: #### VIRGILIO OSMO U #### [place] [address] #### UA #### [address] [address] ALT [Catalytic activity/Vol] 91 U/L High 16-63 [facility] ([place] Comment on above: Performed By: #### VIRGILIO OSMO U #### [place] [address] #### UA #### [address] [address] AST [Catalytic activity/Vol] 316 U/L High 10-40 [facility] ([place] Comment on above: Performed By: #### VIRGILIO OSMO U #### [place] [address] #### UA #### [address] [address] Bili Total 0.6 mg/dL Normal 0.2-1.0 [facility] ([place]) Comment on above: Result Comment: Use of this assay is not recommended for patients undergoing treatment with eltrombopag d ue to the potential for falsely elevated results. Performed By: #### VIRGILIO OSMO U #### [place] [address] #### UA #### [address] [address] BUN/Creatinine Ratio 20 ratio Normal 7-27 [facility] ([place] Comment on above: Performed By: #### VIRGILIO OSMO U #### [place] [address] #### UA #### [address] [address] Calcium [Mass/Vol] 8.9 mg/dL Normal 8.4-10.2 [facility] ([place]) Comment on above: Performed By: #### VIRGILIO, OSMO U #### [place] [address] #### UA #### [address] [address] Chloride [Moles/Vol] 105 mmol/L Normal 98-107 [facility] ([place]) Comment on above: Performed By: #### VIRGILIO OSMO U #### [place] [address] #### UA #### [address] [address] CO2 [Moles/Vol] 14 mmol/L Low 23-31 [facility] ([place]) Comment on above: Performed By: #### VIRGILIO, OSMO U #### [place] [address] #### UA #### [address] [address] Creatinine [Mass/Vol] 3.41 mg/dL High 0.70-1.30 [facility] ([place]) Comment on above: Performed By: #### VIRGILIO, OSMO U #### [place] [address] #### UA #### [address] [address] Electrolyte Balance 28.0 mEq/L Normal [facility] ([place]) Comment on above: Performed By: #### VIRGILIO, OSMO U #### [place] [address] #### UA #### [address] [address] Globulin 4.7 G/dL [facility] ([place]) Comment on above: Performed By: #### VIRGILIO, OSMO U #### [place] [address] #### UA #### [address] [address] Glucose [Mass/Vol] 168 mg/dL High 83-110 [facility] ([place]) Comment on above: Performed By: #### VIRGILIO, OSMO U #### [place] [address] #### UA #### [place] [address] Potassium [Moles/Vol] 5.2 mmol/L High 3.5-5.1 [facility] ([place]) Comment on above: Performed By: #### VIRGILIO, OSMO U #### [place] [address] #### UA #### [address] [address] Sodium [Moles/Vol] 147 mmol/L High 136-145 [facility] ([place]) Comment on above: Performed By: #### VIRGILIO OSMO U #### [address] [address] #### UA #### [address] [address] Total Protein 7.9 G/dL Normal 6.4-8.2 [facility] ([place]) Comment on above: Performed By: #### VIRGILIO OSMO U #### [place] [address] #### UA #### [address] [address] Urea nitrogen [Mass/Vol] 69 mg/dL High 7-18 [facility] ([place]) Comment on above: Performed By: #### VIRGILIO OSMO U #### [place] [address] #### UA #### [address] [address] COVD19 on 01-30-2020 Date of Onset [id number] Invalid Interpretation Code [facility] ([place]) Comment on above: Order Comment: CVRB to Noni at 1630 covid=Neg ja Performed By: #### VIRGILIO OSMO U #### [place] [address] #### UA #### [address] [address] Employed in Healthcare No Normal [facility] ([place]) Comment on above: Order Comment: CVRB to Noni at 1630 covid=Neg ja Performed By: #### VIRGILIO OSMO U #### [place] [address] #### UA #### [address] [address] First Test Unknown Normal [facility] ([place]) Comment on above: Order Comment: CVRB to Noni at 1630 covid=Neg ja Performed By: #### VIRGILIO, OSMO U #### [place] [id number] #### UA #### [address] [address] Hospitalized Unknown [facility] ([place]) Comment on above: Order Comment: CVRB to Noni at 1630 covid=Neg ja Performed By: #### VIRGILIO, OSMO U #### [place] [address] #### UA #### [place] [address] ICU No [facility] ([place]) Comment on above: Order Comment: CVRB to Noni at 1630 covid=Neg ja Performed By: #### VIRGILIO, OSMO U #### [place] [address] #### UA #### [place] [address] Not [facility] ([place]) Comment on above: Order Comment: CVRB to Noni at 1630 covid=Neg ja Performed By: #### VIRGILIO, OSMO U #### [place] [address] #### UA #### [place] [address] Resides in Congregate Care Setting No [facility] ([place]) Comment on above: Order Comment: CVRB to Noni at 1630 covid=Neg ja Performed By: #### VIRGILIO, OSMO U #### [place] [id number] #### UA #### [place] [address] SARS-CoV-2 (COVID-19) RNA Negative Normal Negative [facility] ([place]) LIVE+probe Ql (Unsp spec) Comment on above: Order Comment: CVRB to Noni at 1630 covid=Neg ja Performed By: #### VIRGILIO, OSMO U #### [address] [address] #### UA #### [place] [address] [place], [place] [address] SARS-CoV-2 (COVID-19) RNA LIVE+probe Ql [facility] ([place]) (Unsp spec) Comment on above: Order Comment: CVRB to Noni at 1630 covid=Neg ja Result Comment: Negative res ults do not preclude SARS-CoV-2 infection and should not be used as the sole basis for patient management decisions. Negative results must be combined with clinical observati ons, patient history, and ep idemiological information. There is a risk of false neg ative values resulting from improperly collected, transported, or handled specimens. There is a risk of false neg ative values due to the presence of sequence variants in the pathogen targets of the assay, procedural errors, amplification inhibitors in specimens, or inadequate numbers of organisms for amplification . HAILEY SARS-CoV-2 Assay is a Real-Time reverse-transcriptase polymerase chain reaction (RT-PCR) based qualitative in vitro diagnostic test intended for the qualitative detection of nucleic acid from the SARS-CoV-2 in nasopharyngeal swab specimens collected from individuals suspected of COVID-19 by their healthcare provider. Testing is limited to laboratories certified under the Clinical Laboratory Impr ovement Amendments of 1988 ( CLIA), 42 U.S.C. ?263a, to perform moderate and high complexity tests. COVID-19 Int Performed By: #### TAMRA POOLE U #### [address] [address] #### UA #### [address] [address] Symptomatic as Defined by CDC No Normal [facility] ([place]) Comment on above: Order Comment: CVRB to Noni at 1630 covid=Neg ja Performed By: #### JORDYN POOLEO U #### [address] [address] #### UA #### [place] [address] [place], [place] [address] CT HEAD OR BRAIN W/O CONTRAST on 01-30-2020 CT HEAD OR BRAIN W/O ORIGINAL [facility] CONTRAST CT HEAD OR BRAIN W/O CONTRAST [facility] ([place]) CLINICAL STATEMENT: Fall, Pain. TECHNIQUE: Axial CT images f rom skull base to vertex without IV contrast. This exam was performed according to our departmental dose optimization program, and includes the following measures where appli cable: automated exposure co ntrol, adjustment of the mAs and/or kVp according to patient size and/or exam, and an iterative reconstruction algorithm. COMPARISON: CT head 07/24/2017 FINDINGS: There is no acute intracranial hemorrhage, mass, mass effect or abnormal extra-axial fluid collection. There is no CT evidence of acute infarct. The ventricles are stable. The skull base and calvarium demonstrate no abnormality. The visualized paranasal sinuses are clear. Included mastoid air cells are clear. LEFT preorbital edema is noted, the retroconal contents appear within normal limits for technique. IMPRESSION: 1. No acute intracranial abnormality. 2. Partially visualized left-sided preorbital edema. Interpreted By: Naveen Fairbanks MD Preliminary Report By: Naveen Fairbanks MD Electronically Signed By: Naveen Fairbanks MD Dictated Date: 01/30/2020 4:21:43 PM Prelim Date: 01/30/2020 4:21:43 PM Sign Date: 01/30/2020 4:26:44 PM Ordering Provider:Darell Castanon CT SPINE CERVICAL W/O CONTRAST on 01-30-2020 CT SPINE CERVICAL W/O ORIGINAL Normal [facility] CONTRAST CT SPINE CERVICAL W/O CONTRAST [facility] ([place]) CLINICAL STATEMENT: Fall, Pain. TECHNIQUE: Multiple-row dete ctor helical CT examination of the cervical spine without IV contrast. Axial, sagittal, and coronal reconstructed images. This exam was performed according to our departmenta l dose optimization program, and includes the following measures where applicable: automated exposure control, adjustment of the mAs and/or kVp according to patient size and/or exam, and an iterative reconstruction algorithm. COMPARISON: None. FINDINGS: No fracture or tra umatic malalignment. Vertebral body heights are maintained. No aggressive osseous lesions are identified. The prevertebral and paraspi nal soft tissues demonstrate no acute abnormality. Advanced atherosclerotic calcification of the LEFT greater than RIGHT carotid bifurcation. In the RIGHT greater than LEFT l onel apex there is scattered linear groundglass opacity , nonspecific. There appears to be a signif icant amount of periapical lucency of several RIGHT lower mandibular teeth posteriorly. IMPRESSION: 1. No acute fracture or traumatic malalignment. 2. Round glass opacities of the RIGHT greater than LEFT lung apex. These may represent an atypical infectious or inflammatory process. Clinical correlation is recommended, dedicated CT chest may be considered. 3. Periapical lucency of sev eral RIGHT mandibular teeth posteriorly. Nonemergent dental consultation is recommended. Interpreted By: Naveen Fairbanks MD Preliminary Report By: Naveen Fairbanks MD Electronically Signed By: Naveen Fairbanks MD Dictated Date: 01/30/2020 4:26:57 PM Prelim Date: 01/30/2020 4:26:57 PM Sign Date: 01/30/2020 4:33:28 PM Ordering Provider:Darell Castanon LAC on 01-30-2020 Lactic Acid Lvl 2.2 mmol/L High 0.4-2.0 [facility] ([place]) Comment on above: Performed By: #### GFR #### [place] [address] #### BMP #### [address] [address] Lactic Acid Lvl 1.5 mmol/L Normal 0.4-2.0 [facility] ([place]) Comment on above: Order Comment: Ordered domingoon cirilo to Lactic Acid result greater than or equal to 2.0 Performed By: #### LAC #### [address] [address] LIP on 01-30-2020 Lipase Level 537 U/L High 73-393 [facility] ([place]) Comment on above: Performed By: #### GFR #### [address] [address] #### BMP #### [address] [address] MG on 01-30-2020 Magnesium [Mass/Vol] 2.3 mg/dL Normal 1.8-2.4 [facility] ([place]) Comment on above: Performed By: #### KUR, OSMO U #### [address] [address] #### UA #### [address] [address] TROP on 01-30-2020 Troponin I.cardiac 0.295 ng/mL Critically abnormal 0.000-0.040 [facility] [Mass/Vol] [facility] ([place]) Comment on above: Order Comment: CVRB to Yossi @ 1426. TRN=.295 ja Result Comment: Troponin I r eference range: 0.00-0.040 ng/mL Negative an d non-diagnostic. >0.040 ng/mL Consistent with cardiac damage, increased clinical risk and possibility of myocardial in farction. Serial measurements, a rise & fall in test results, clinical histo ry, appropriate symptoms and/or ECG changes may help assess possibility of ND. *Other non-acute coronary sy ndrome conditions such as CHF, myoc arditis, pulmonary emboli, sepsis and cardiac surgery could result in myoc ardial damage and increased troponi n levels. Performed By: #### GFR #### [place] [address] #### BMP #### [place] [address] UA on 01-30-2020 Color (U) Yellow Normal [facility] ([place]) Comment on above: Performed By: #### VIRGILIO OSMO U #### [place] [address] #### UA #### [address] [address] Glucose (U) [Mass/Vol] Negative Normal Negative [facility] ([place]) Comment on above: Performed By: #### VIRGILIO, OSMO U #### [place] [address] #### UA #### [address] [address] Ketones Ql (U) 15 mg/dL Abnormal Negative [facility] ([place]) Comment on above: Performed By: #### VIRGILIO, OSMO U #### [place] [address] #### UA #### [address] [address] UA Appear Slightly Cloudy Abnormal Clear [facility] ([place]) Comment on above: Performed By: #### VIRGILIO, OSMO U #### [place] [address] #### UA #### [address] [address] UA Blood Large Abnormal Negative [facility] ([place]) Comment on above: Performed By: #### VIRGILIO, OSMO U #### [place] [address] #### UA #### [address] [address] UA Leuk Est Negative Normal Negative [facility] ([place]) Comment on above: Performed By: #### VIRGILIO, OSMO U #### [place] [address] #### UA #### [address] [address] UA Nitrite Negative Normal Negative [facility] ([place]) Comment on above: Performed By: #### VIRGILIO, OSMO U #### [place] [address] #### UA #### [address] [address] UA pH 5.5 Normal 5.0 - 8.0 [facility] ([place]) Comment on above: Performed By: #### VIRGILIO, OSMO U #### [place] [address] #### UA #### [address] [address] UA Protein Trace Normal Negative [facility] ([place] Comment on above: Performed By: #### VIRGILIO, OSMO U #### [place] [address] #### UA #### [address] [address] UA Spec Grav 1.020 Normal 1.015-1.025 [facility] ([place]) Comment on above: Performed By: #### VIRGILIO, OSMO U #### [place] [address] #### UA #### [facility] [address] [place], [place] [address] UA Specimen Type Catheter Normal [facility] ([place]) Comment on above: Performed By: #### VIRGILIO OSMO U #### [address] [address] #### UA #### [facility] [address] [place], [place] [address] UA Urobilinogen 0.2 E.U./dL Normal 0.2-1.0 [facility] ([place]) Comment on above: Performed By: #### VIRGILIO, OSMO U #### [place] [address] #### UA #### [address] [address] Urobilinogen (U) [Mass/Vol] Negative Normal Negative [facility] ([place]) Comment on above: Performed By: #### VIRGILIO, OSMO U #### [place] [address] #### UA #### [address] [address] XR CHEST 1 VIEW on 04-01-2019 XR CHEST 1 VIEW ORIGINAL Normal [facility] Chest Radiograph 01/30/2020 ([place]) Indication: 74 years old Male, Fall, Pain. Comparison: Chest 01/24/2019 One view portable semiupright chest x-ray obtained. Findings: Interval developme nt of hazy RIGHT lung opacities, predominantly towards the lung base with obscuration of the costophrenic angle. The LEFT hemithorax remains grossly clear. Cardiomediastinal silhouette is stable. Impression: Interval development of hazy RIGHT basilar opacity suggesting a small pleural effusion and associated atelectasis or infiltrate. Recommend radiographic follow-up. Interpreted By: Naveen Fairbanks MD Preliminary Report By: Naveen Fairbanks MD Electronically Signed By: Naveen Fairbanks MD Dictated Date: 01/30/2020 4:17:58 PM Prelim Date: 01/30/2020 4:17:58 PM Sign Date: 01/30/2020 4:19:36 PM Ordering Provider:Darell Castanon XR PELVIS 1 OR 2 VIEWS on 01-30-2020 XR PELVIS 1 OR 2 VIEWS ORIGINAL Normal [facility] XR PELVIS 1 OR 2 VIEWS ([place]) CLINICAL STATEMENT: Fall, Pain. COMPARISON: None FINDINGS: The pubic symphysi s is widened. Visualized sacral ala appear intact. The patient is rotated which does compromise evaluation. There are degenerative changes in the visualized osseous structures. IMPRESSION: No displaced fra cture on this suboptimal single view. If there is hip pain, recommend dedicated radiographs. Interpreted By: Ayla Kulkarni MD Preliminary Report By: Ayla Kulkarni MD Electronically Signed By: Ayla Kulkarni MD Dictated Date: 01/30/2020 4:25:52 PM Prelim Date: 01/30/2020 4:25:52 PM Sign Date: 01/30/2020 4:27:34 PM Ordering Provider:Darell Castanon Basic Metabolic Panel on 12-09-2019 Anion gap [Moles/Vol] 11 mmol/L [place] Anion gap [Moles/Vol] 11 Normal [facility] Comment on above: Performed By: #### HEMDF, LA CT3, BNP3, CMP3, LIPA4, TROPN, PT #### [facility] [address] [place] [address] Calcium [Mass/Vol] 8.9 mg/dL 8.4 - 10.4 mg/dL [place], [place] Calcium [Mass/Vol] 8.9 mg/dL Normal 8.4-10.4 [facility] Comment on above: Performed By: #### HEMDF, LA CT3, BNP3, CMP3, LIPA4, TROPN, PT #### [facility] [address] [place] [address] Chloride [Moles/Vol] 101 mmol/L 98 - 107 mmol/L [facility] [place] Chloride [Moles/Vol] 101 mmol/L Normal 98-107 [facility] Comment on above: Performed By: #### HEMDF, LA CT3, BNP3, CMP3, LIPA4, TROPN, PT #### [facility] [address] [place] [address] CO2 [Moles/Vol] 20 mmol/L Low 22 - 30 mmol/L [place], [place] CO2 [Moles/Vol] 20 mmol/L Low 22-30 [facility] Comment on above: Performed By: #### HEMDF, LA CT3, BNP3, CMP3, LIPA4, TROPN, PT #### [facility] [address] [place] [address] Creatinine [Mass/Vol] 0.62 mg/dL 0.52 - 1.25 mg/dL [place], [place] Creatinine [Mass/Vol] 0.62 mg/dL Normal 0.52-1.25 [facility] Comment on above: Performed By: #### HEMDF, LA CT3, BNP3, CMP3, LIPA4, TROPN, PT #### [facility] [address] [place] [address] EGFR IF NonAfrican [place]uran >90.0 >60 mL/min [place], [place] Comment on above: KDIGO guidelines provide the following GFR categories: Stage GFR(ml/min/1.73 m2) Terms G1 >=90 Normal or h igh G2 60-89 Mildly decr eased* G3a 45-59 Mildly to moderately decreased G3b 30-44 Moderately to severely decreased G4 15-29 Severely de creased G5 <15 Kidne y failure *Relative to young adult lev el. In the absence of evidence o f kidney damage, neither GFR category G1 nor G2 fulfill t he criteria for CKD. The CKD-EPI equation is skylar dated in individuals 18 years of age and older. Currently the best equation for estimating glomerular filtra tion rate (GFR) from serum creatinine in children is [facility] Bedside Jarvis equation. It is less accurate in patie nts with extremes of muscle mass, restriction of dietary protein, ingestion of creatine, extra-renal metabolism of cr eatinine, or treatment with medications that affect chani l tubular creatinine secretion. GFR/1.73 sq M predicted among mL/min/{1.73_m2} >60 mL/ min [place] blacks MDRD (S/P/Bld) [Vol rate/Area] GFR/1.73 sq M predicted among mL/min/{1.73_m2} Normal >60 [facility] blacks MDRD (S/P/Bld) [Vol rate/Area] Comment on above: Performed By: #### HEMDF, LA CT3, BNP3, CMP3, LIPA4, TROPN, PT #### [facility] [address] [place] [address] GFR/1.73 sq M predicted among mL/min/{1.73_m2} Normal >60 [facility] non-blacks MDRD (S/P/Bld) [Vol rate/Area] Comment on above: Result Comment: KDIGO guidel beverly provide the following GFR categories: Stage GFR(ml/min/1.73 m2) Te rosaline G1 >=90 Normal or high G2 60-89 Mildly decreased* G3a 45-59 Mildly to moderate ly decreased G3b 30-44 Moderately to alex rely decreased G4 15-29 Severely decreased G5 <15 Kidney failure *Relative to young adult lev el. In the absence of evidence o f kidney damage, neither GFR category G1 nor G2 fulfill t he criteria for CKD. The CKD-EPI equation is skylar dated in individuals 18 years of age and older. Currently the best equation for estimating glomerular filtra tion rate (GFR) from serum creatinine in children is th e Bedside Jarvis equation. It is less accurate in patie nts with extremes of muscle mass, restriction of dietary protein, ingestion of creatine, extra-renal metabolism of cr eatinine, or treatment with medications that affect chani l tubular creatinine secretion. Performed By: #### HEMDF, LA CT3, BNP3, CMP3, LIPA4, TROPN, PT #### [facility] [address] [place] [address] Glucose [Mass/Vol] 128 mg/dL High 70 - 100 mg/dL [facility], [place] Glucose [Mass/Vol] 128 mg/dL High 70-100 [facility] Comment on above: Performed By: #### HEMDF, LA CT3, BNP3, CMP3, LIPA4, TROPN, PT #### [facility] [address] [place] [address] Potassium [Moles/Vol] 3.4 mmol/L Low 3.5 - 5.1 mmol/L [facility], [place] Potassium [Moles/Vol] 3.4 mmol/L Low 3.5-5.1 [facility] Comment on above: Performed By: #### HEMDF, LA CT3, BNP3, CMP3, LIPA4, TROPN, PT #### [facility] [address] [place] [address] Sodium [Moles/Vol] 132 mmol/L Low 135 - 145 mmol/L [place] Sodium [Moles/Vol] 132 mmol/L Low 135-145 [facility] Comment on above: Performed By: #### HEMDF, LA CT3, BNP3, CMP3, LIPA4, TROPN, PT #### [facility] [address] [place] [address] Urea nitrogen [Mass/Vol] 9 mg/dL 7 - 20 mg/dL [place], [place] Urea nitrogen [Mass/Vol] 9 mg/dL Normal 7-20 [facility] Comment on above: Performed By: #### HEMDF, LA CT3, BNP3, CMP3, LIPA4, TROPN, PT #### [facility] [address] [place] [address] CBC Auto Differential on 12-09-2019 Absolute Baso # 0.0 10*3/uL 0 - 0.2 10*3/uL [place], [place] Absolute Neut # 5.1 10*3/uL 1.8 - 7 10*3/uL [place], [place] Basophils/100 WBC (Bld) 0.3 % 0 - 2 % [place], [place] Eosinophils (Bld) [#/Vol] 0.1 10*3/uL 0 - 0.5 10*3/uL [place] Eosinophils/100 WBC (Bld) 1.0 % 1 - 6 % [place], [place] Erythrocyte distribution 14.1 % 11.5 - 14.5 % [place], [place] width (RBC) [Ratio] Granulocytes/100 WBC (Bld) 76.4 % 40 - 80 % [place], [place] Hematocrit (Bld) [Volume 31.9 % Low 40 - 52 % [place], [place] fraction] Hemoglobin (Bld) [Mass/Vol] 11.3 g/dL Low 13 - 18 g/dL [place] Lymphocytes (Bld) [#/Vol] 0.4 10*3/uL Low 1 - 4.3 10*3/uL [place] Lymphocytes/100 WBC (Bld) 6.6 % Low 20 - 40 % [place], [place] MCH (RBC) [Entitic mass] 35.8 pg High 26 - 34 pg [place] MCHC (RBC) [Mass/Vol] 35.4 % 32 - 36 % [place] MCV (RBC) [Entitic vol] 101.3 fL High 80 - 98 fL [place], [place] Monocytes (Bld) [#/Vol] 1.0 10*3/uL High 0 - 0.8 10*3/uL [place], [place] Monocytes/100 WBC (Bld) 15.7 % High 2 - 10 % [place], [place] Platelet mean volume (Bld) 9.9 fL 7.4 - 10.4 fL [place] [Entitic vol] Platelets (Bld) [#/Vol] 146 10*3/uL 140 - 440 10*3/uL [place] RBC (Bld) [#/Vol] 3.15 10*6/uL Low 4.4 - 5.9 10*6/uL [place] WBC (Bld) [#/Vol] 6.6 10*3/uL 3.6 - 10.7 10*3/uL [place] Glucose,Bedside on 1 Glucose [Mass/Vol] 120 mg/dL High 70-100 [facility] Comment on above: Result Comment: Test perform ed by glucose meter. Results may be 10%-15% lower than serum/plasma values. (C JENNIFER ID [id number]) Performed By: #### HEMDF, LA CT3, BNP3, CMP3, LIPA4, TROPN, PT #### [facility] [address] [place] [address] Glucose [Mass/Vol] 128 mg/dL High 70-100 [facility] Comment on above: Result Comment: Test perform ed by glucose meter. Results may be 10%-15% lower than serum/plasma values. (C JENNIFER ID [id number]) Performed By: #### HEMDF, LA CT3, BNP3, CMP3, LIPA4, TROPN, PT #### [facility] [address] [place] [address] Hemogram w/ Autodiff on 12-09-2019 Abs Baso Cnt 0.0 10*3/uL Normal 0.0-0.2 [facility] Comment on above: Performed By: #### HEMDF, LA CT3, BNP3, CMP3, LIPA4, TROPN, PT #### [facility] [address] [place] [address] Abs Neutrophile Cnt 5.1 10*3/uL Normal 1.8-7.0 [facility] Comment on above: Performed By: #### HEMDF, LA CT3, BNP3, CMP3, LIPA4, TROPN, PT #### [facility] [address] [place] [place] [address] Basophils/100 WBC (Bld) 0.3 % Normal 0.0-2.0 [facility] Comment on above: Performed By: #### HEMDF, LA CT3, BNP3, CMP3, LIPA4, TROPN, PT #### [place] [address] [place] [address] Eosinophils (Bld) [#/Vol] 0.1 10*3/uL Normal 0.0-0.5 [facility] Comment on above: Performed By: #### HEMDF, LA CT3, BNP3, CMP3, LIPA4, TROPN, PT #### [facility] [address] [place] [address] Eosinophils/100 WBC (Bld) 1.0 % Normal 1.0-6.0 [facility] Comment on above: Performed By: #### HEMDF, LA CT3, BNP3, CMP3, LIPA4, TROPN, PT #### [facility] [address] [place] [address] Erythrocyte distribution width (RBC) 14.1 % Normal 11.5 -14.5 [facility] [Ratio] Comment on above: Performed By: #### HEMDF, LA CT3, BNP3, CMP3, LIPA4, TROPN, PT #### [facility] [address] [place] [address] Granulocytes/100 WBC (Bld) 76.4 % Normal 40.0-80.0 [facility] Comment on above: Performed By: #### HEMDF, LA CT3, BNP3, CMP3, LIPA4, TROPN, PT #### [facility] [address] [place] [address] Hematocrit (Bld) [Volume fraction] 31.9 % Low 40.0-5 2.0 [facility] Comment on above: Performed By: #### HEMDF, LA CT3, BNP3, CMP3, LIPA4, TROPN, PT #### [place] [address] [place] [address] Hemoglobin (Bld) [Mass/Vol] 11.3 g/dL Low 13.0-18.0 [facility] Comment on above: Performed By: #### HEMDF, LA CT3, BNP3, CMP3, LIPA4, TROPN, PT #### [place] [address] [place] [address] Lymphocytes (Bld) [#/Vol] 0.4 10*3/uL Low 1.0-4.3 [facility] Comment on above: Performed By: #### HEMDF, LA CT3, BNP3, CMP3, LIPA4, TROPN, PT #### [place] [address] [place] [address] Lymphocytes/100 WBC (Bld) 6.6 % Low 20.0-40.0 [facility] Comment on above: Performed By: #### HEMDF, LA CT3, BNP3, CMP3, LIPA4, TROPN, PT #### [place] [address] [place] [address] MCH (RBC) [Entitic mass] 35.8 pg High 26.0-34.0 [facility] Comment on above: Performed By: #### HEMDF, LA CT3, BNP3, CMP3, LIPA4, TROPN, PT #### [place] [address] [place] [address] MCHC (RBC) [Mass/Vol] 35.4 % Normal 32.0-36.0 [facility] Comment on above: Performed By: #### HEMDF, LA CT3, BNP3, CMP3, LIPA4, TROPN, PT #### [facility] [address] [place] [address] MCV (RBC) [Entitic vol] 101.3 fL High 80.0-98.0 [facility] Comment on above: Performed By: #### HEMDF, LA CT3, BNP3, CMP3, LIPA4, TROPN, PT #### [facility] [address] [place] [address] Monocytes (Bld) [#/Vol] 1.0 10*3/uL High 0.0-0.8 [facility] Comment on above: Performed By: #### HEMDF, LA CT3, BNP3, CMP3, LIPA4, TROPN, PT #### [facility] [address] [place] [address] Monocytes/100 WBC (Bld) 15.7 % High 2.0-10.0 [facility] Comment on above: Performed By: #### HEMDF, LA CT3, BNP3, CMP3, LIPA4, TROPN, PT #### [facility] [address] [place] [address] Platelet mean volume (Bld) [Entitic vol] 9.9 fL Normal 7.4-10.4 [facility] Comment on above: Performed By: #### HEMDF, LA CT3, BNP3, CMP3, LIPA4, TROPN, PT #### [facility] [address] [place] [address] Platelets (Bld) [#/Vol] 146 10*3/uL Normal 140-440 [facility] Comment on above: Performed By: #### HEMDF, LA CT3, BNP3, CMP3, LIPA4, TROPN, PT #### [facility] [address] [place] [address] RBC (Bld) [#/Vol] 3.15 10*6/uL Low 4.40-5.90 [facility] Comment on above: Performed By: #### HEMDF, LA CT3, BNP3, CMP3, LIPA4, TROPN, PT #### [facility] [address] [place] [address] WBC (Bld) [#/Vol] 6.6 10*3/uL Normal 3.6-10.7 [facility] Comment on above: Performed By: #### HEMDF, LA CT3, BNP3, CMP3, LIPA4, TROPN, PT #### [facility] [address] [place] [address] Hepatic Function on 12-09-2019 Albumin [Mass/Vol] 3.6 g/dL Normal 3.5-5.0 [facility] Comment on above: Performed By: #### HEMDF, LA CT3, BNP3, CMP3, LIPA4, TROPN, PT #### [facility] [address] [place] [address] ALP [Catalytic activity/Vol] 114 U/L Normal 38-126 [facility] Comment on above: Performed By: #### HEMDF, LA CT3, BNP3, CMP3, LIPA4, TROPN, PT #### [facility] [address] [place] [address] ALT [Catalytic activity/Vol] 92 U/L High 0-49 [facility] Comment on above: Result Comment: The ALT test is performed by an updated assay method. Please note that the referen ce intervals have been changed and are now sex spec ific. Performed By: #### HEMDF, LA CT3, BNP3, CMP3, LIPA4, TROPN, PT #### [facility] [address] [place] [address] AST [Catalytic activity/Vol] 101 U/L High 15-46 [facility] Comment on above: Performed By: #### HEMDF, LA CT3, BNP3, CMP3, LIPA4, TROPN, PT #### [facility] [address] [place] [address] Bilirubin [Mass/Vol] 0.8 mg/dL Normal 0.2-1.3 [facility] Comment on above: Performed By: #### HEMDF, LA CT3, BNP3, CMP3, LIPA4, TROPN, PT #### [facility] [address] [place] [address] Bilirubin.direct [Mass/Vol] 0.0 mg/dL Normal 0.0-0.3 [facility] Comment on above: Performed By: #### HEMDF, LA CT3, BNP3, CMP3, LIPA4, TROPN, PT #### [facility] [address] [place] [address] Protein [Mass/Vol] 6.3 g/dL Normal 6.3-8.2 [facility] Comment on above: Performed By: #### HEMDF, LA CT3, BNP3, CMP3, LIPA4, TROPN, PT #### [facility] [address] [place] [address] Hepatic Function Panel on 12-09-2019 Albumin [Mass/Vol] 3.6 g/dL 3.5 - 5 g/dL [place], [place] ALP [Catalytic activity/Vol] 114 U/L 38 - 126 U/L [place] ALT [Catalytic activity/Vol] 92 U/L High 0 - 49 U/L [place] Comment on above: The ALT test is performed by an updated assay method. Please note that the referen ce intervals have been changed and are now sex spec ific. AST [Catalytic activity/Vol] 101 U/L High 15 - 46 U/L [place] Bilirubin Ql (U) 0.8 mg/dL 0.2 - 1.3 mg/dL [place] Bilirubin.direct [Mass/Vol] 0.0 mg/dL 0 - 0.3 mg/dL [place] Protein [Mass/Vol] 6.3 g/dL 6.3 - 8.2 g/dL [place], [place] Lipase on 12-09-2019 Lipase [Catalytic activity/Vol] 901 U/L High 23 - 300 U/L [place] Lipase [Catalytic activity/Vol] 901 U/L High 23-300 [facility] Comment on above: Performed By: #### HEMDF, LA CT3, BNP3, CMP3, LIPA4, TROPN, PT #### [facility] [address] [place] [address] Other on 12-09-2019 Interpretation and review of Abnormal [place], [place] laboratory results Test Performed by [facility], [address], [place], [place] [address] POCT Glucose on 11-18 Glucose [Mass/Vol] 120 mg/dL High 70 - 100 mg/dL [place], [place] Comment on above: Test performed by glucose me ter. Results may be 10%-15% lower than serum/plasma values. ( CLIA ID [id number]) Glucose [Mass/Vol] 128 mg/dL High 70 - 100 mg/dL [place], [place] Comment on above: Test performed by glucose me ter. Results may be 10%-15% lower than serum/plasma values. ( CLIA ID [id number]) Interpretation and review of Abnormal [place] laboratory results Interpretation and review of Abnormal [place] laboratory results Test Performed by [facility], [address] [place], [place] [address] Test Performed by [facility], [address] [place], [place] [address] Basic Metabolic Panel on 12-08-2019 Anion gap [Moles/Vol] 8 mmol/L [place] Anion gap [Moles/Vol] 8 Normal [facility] Comment on above: Order Comment: Slight Hemoly sis Performed By: #### HEMDF, LA CT3, BNP3, CMP3, LIPA4, TROPN, PT #### [facility] [address] [place] [address] Calcium [Mass/Vol] 8.8 mg/dL 8.4 - 10.4 mg/dL [place] Calcium [Mass/Vol] 8.8 mg/dL Normal 8.4-10.4 [facility] Comment on above: Order Comment: Slight Hemoly sis Performed By: #### HEMDF, LA CT3, BNP3, CMP3, LIPA4, TROPN, PT #### [facility] [address] [place] [address] Chloride [Moles/Vol] 106 mmol/L 98 - 107 mmol/L [place], [place] Chloride [Moles/Vol] 106 mmol/L Normal 98-107 [facility] Comment on above: Order Comment: Slight Hemoly sis Performed By: #### HEMDF, LA CT3, BNP3, CMP3, LIPA4, TROPN, PT #### [facility] [address] [place] [address] CO2 [Moles/Vol] 22 mmol/L 22 - 30 mmol/L [place], [place] CO2 [Moles/Vol] 22 mmol/L Normal 22-30 [facility] Comment on above: Order Comment: Slight Hemoly sis Performed By: #### HEMDF, LA CT3, BNP3, CMP3, LIPA4, TROPN, PT #### [facility] [address] [place] [address] Creatinine [Mass/Vol] 0.61 mg/dL 0.52 - 1.25 mg/dL [place], [place] Creatinine [Mass/Vol] 0.61 mg/dL Normal 0.52-1.25 [facility] Comment on above: Order Comment: Slight Hemoly sis Performed By: #### HEMDF, LA CT3, BNP3, CMP3, LIPA4, TROPN, PT #### [facility] [address] [place] [address] EGFR IF NonAfrican [place] >90.0 >60 mL/min [place] Comment on above: KDIGO guidelines provide the following GFR categories: Stage GFR(ml/min/1.73 m2) Terms G1 >=90 Normal or h igh G2 60-89 Mildly decr eased* G3a 45-59 Mildly to moderately decreased G3b 30-44 Moderately to severely decreased G4 15-29 Severely de creased G5 <15 Kidne y failure *Relative to young adult lev el. In the absence of evidence o f kidney damage, neither GFR category G1 nor G2 fulfill t he criteria for CKD. The CKD-EPI equation is skylar dated in individuals 18 years of age and older. Currently the best equation for estimating glomerular filtra tion rate (GFR) from serum creatinine in children is th e Bedside Jarvis equation. It is less accurate in patie nts with extremes of muscle mass, restriction of dietary protein, ingestion of creatine, extra-renal metabolism of cr eatinine, or treatment with medications that affect chani l tubular creatinine secretion. GFR/1.73 sq M predicted among mL/min/{1.73_m2} >60 mL/ min [place] blacks MDRD (S/P/Bld) [Vol rate/Area] GFR/1.73 sq M predicted among mL/min/{1.73_m2} Normal >60 [facility] blacks MDRD (S/P/Bld) [Vol rate/Area] Comment on above: Order Comment: Slight Hemoly sis Performed By: #### HEMDF, LA CT3, BNP3, CMP3, LIPA4, TROPN, PT #### [facility] [address] [place] [address] GFR/1.73 sq M predicted among mL/min/{1.73_m2} Normal >60 [facility] non-blacks MDRD (S/P/Bld) [Vol rate/Area] Comment on above: Order Comment: Slight Hemoly sis Result Comment: KDIGO guidel beverly provide the following GFR categories: Stage GFR(ml/min/1.73 m2) Te rosaline G1 >=90 Normal or high G2 60-89 Mildly decreased* G3a 45-59 Mildly to moderate ly decreased G3b 30-44 Moderately to alex rely decreased G4 15-29 Severely decreased G5 <15 Kidney failure *Relative to young adult lev el. In the absence of evidence o f kidney damage, neither GFR category G1 nor G2 fulfill t he criteria for CKD. The CKD-EPI equation is skylar dated in individuals 18 years of age and older. Currently the best equation for estimating glomerular filtra tion rate (GFR) from serum creatinine in children is th e Bedside Jarvis equation. It is less accurate in patie nts with extremes of muscle mass, restriction of dietary protein, ingestion of creatine, extra-renal metabolism of cr eatinine, or treatment with medications that affect chani l tubular creatinine secretion. Performed By: #### HEMDF, LA CT3, BNP3, CMP3, LIPA4, TROPN, PT #### [facility] [address] [place] [address] Glucose [Mass/Vol] 137 mg/dL High 70 - 100 mg/dL [place], [place] Glucose [Mass/Vol] 137 mg/dL High 70-100 [facility] Comment on above: Order Comment: Slight Hemoly sis Performed By: #### HEMDF, LA CT3, BNP3, CMP3, LIPA4, TROPN, PT #### [facility] [address] [place] [address] Potassium [Moles/Vol] 3.5 mmol/L 3.5 - 5.1 mmol/L [place], [place] Potassium [Moles/Vol] 3.5 mmol/L Normal 3.5-5.1 [facility] Comment on above: Order Comment: Slight Hemoly sis Performed By: #### HEMDF, LA CT3, BNP3, CMP3, LIPA4, TROPN, PT #### [facility] [address] [place] [address] Sodium [Moles/Vol] 136 mmol/L 135 - 145 mmol/L [place] Sodium [Moles/Vol] 136 mmol/L Normal 135-145 [facility] Comment on above: Order Comment: Slight Hemoly sis Performed By: #### HEMDF, LA CT3, BNP3, CMP3, LIPA4, TROPN, PT #### [facility] [address] [place] [address] Urea nitrogen [Mass/Vol] 5 mg/dL Low 7 - 20 mg/dL [place], [place] Urea nitrogen [Mass/Vol] 5 mg/dL Low 7-20 [facility] Comment on above: Order Comment: Slight Hemoly sis Performed By: #### HEMDF, LA CT3, BNP3, CMP3, LIPA4, TROPN, PT #### [facility] [address] [place] [address] CBC Auto Differential on 12-08-2019 Absolute Baso # 0.0 10*3/uL 0 - 0.2 10*3/uL [place] Absolute Neut # 4.5 10*3/uL 1.8 - 7 10*3/[facility] [place] [place] Basophils/100 WBC (Bld) 0.3 % 0 - 2 % [facility]- [place], [place] Eosinophils (Bld) 0.1 10*3/uL 0 - 0.5 10*3/uL [facility] eah- [place], [#/Vol] [place] Eosinophils/100 WBC 1.4 % 1 - 6 % [facility]- [place], (Bld) [place] Erythrocyte distribution 14.4 % 11.5 - 14.5 % [facility]- [place], width (RBC) [Ratio] [place] Granulocytes/100 WBC 73.8 % 40 - 80 % [facility]- [place], (Bld) [place] Hematocrit (Bld) [Volume 33.6 % Low 40 - 52 % [facility]- [place], fraction] [place] Hemoglobin (Bld) 11.7 g/dL Low 13 - 18 g/dL [facility]- [place], [Mass/Vol] [place] Lymphocytes (Bld) 0.6 10*3/uL Low 1 - 4.3 10*3/uL [facility]- [place], [#/Vol] [place] Lymphocytes/100 WBC 9.8 % Low 20 - 40 % [facility]- [place], (Bld) [place] MCH (RBC) [Entitic mass] 35.3 pg High 26 - [address] [facility]- [place] MCHC (RBC) [Mass/Vol] 35.0 % 32 - 36 % [facility]- [place], [place] MCV (RBC) [Entitic vol] 100.9 fL High 80 - 98 fL [facility]- [place], [place] Monocytes (Bld) [#/Vol] 0.9 10*3/uL High 0 - 0.8 10*3/uL M [facility]- [place], [place] Monocytes/100 WBC (Bld) 14.7 % High 2 - 10 % [facility]- [place], [place] Platelet mean volume 10.5 fL High 7.4 - 10.4 fL [facility]- [place], (Bld) [Entitic vol] [place] Platelets (Bld) [#/Vol] 123 10*3/uL Low 140 - 440 10*3/uL [facility]- [place] RBC (Bld) [#/Vol] 3.33 10*6/uL Low 4.4 - 5.9 10*6/uL [place] WBC (Bld) [#/Vol] 6.1 10*3/uL 3.6 - 10.7 10*3/uL [place] Test Performed by [place] [address], [place] [address] COVID-19 on 12-08-19 20 SARS-CoV-2 Not Detected [place], [place] Expected Result: Not Detected _ Real-time, RT-PCR performed on the [employer] System by the [facility]. Negative results do not preclude SARS-CoV-2 infection and should not be used as the sole basis for treatment or other patient management decisions. This assay was developed by [employer] and distributed under an Emergency Use Authorization (EUA) granted by the FDA for the qualitative detection of SARS-CoV-2 nucleic acid. Results were determined from a pool consisting of specimens from additional patients. This test was modified, and its performance characteristics, showing minimal loss of sensitivity, have been validated by [facility]. Approval is pending review by the U. S. Food and Drug Administration. If symptoms are severe and persist, testing a new specimen may be warranted. Additionally, IgG testing may be considered for patients more than 7-10 days post onset of symptoms. Test Performed by [facility], [place] [place] [address] Specimen Source Comment:Nasopharyngeal Swab ECHO Complete 2D W Doppler W Color on 12-08-2019 Felix, [facility] Incoming Cardiolo gy Results From Merge[facility] - 12/08/2019 12:35 PM EDT TRANSTHORACIC ECHOCARDIOGRAM [facility] PATIENT: Jagruti Ramirez STUDY DATE: 12/08/2019 [place], [place] : 1945 AGE: 74 HT/WT: 165.1 cm (65 60.3 kg in) (132.7 lb) GENDER: M BP: 138 / 58 LOCATION: [facility] PATIENT Inpatient [facility] STATUS: *ORDERING PHYSICIAN: * Ray Ulrich *READING PHYSICIAN: * Mela Hamilton MD *RATOPRINTER: * Bianca Moss INDICATIONS: Chest pain. CONCLUSIONS SUMMARY: 1. Left ventricle: Systolic function is normal by the biplane method of disks. The estimated ejection fraction is 67%. There a re no regional wall motion abnormalities. Doppler parameters are cons istent with abnormal left ventricular relaxation (grade 1 diastoli c dysfunction). 2. Left atrium: The atrium is moderately dilated. 3. Right atrium: The atrium is normal in size. 4. Mitral valve: Leaflet separation is normal. There i s mild, 1+ regurgitation. 5. Aortic valve: Trileaflet; moderately thickened, mod erately calcified leaflets. There is mild, 1+ regurgitation. The peak sy stolic velocity is 2.2 m/sec. Findings suggest mild stenosis 6. Tricuspid valve: Structurally normal valve. STUDY DATA: Complete transthoracic echocardiogram. Pro cedure: Image quality was adequate. M-mode, complete 2D, complete sp ectral Doppler, and color flow Doppler images were acquired and archiv ed for permanent storage and are available for subsequent review. Study status: Routine. Patient status: Inpatient. ECG RHYTHM: NSR FINDINGS LEFT VENTRICLE: The cavity size is normal. Wall thickn ess is mildly increased. Systolic function is normal by the biplane method of disks. The estimated ejection fraction is 67%. There are no r egional wall motion abnormalities. Doppler parameters are consisten t with abnormal left ventricular relaxation (grade 1 diastolic dysfunc tion). RIGHT VENTRICLE: The cavity size is normal. Systolic f unction is normal. Right ventricular systolic pressure is at the upper limits of normal. VENTRICULAR SEPTUM: There is no evidence of a ventricu lar septal defect. LEFT ATRIUM: The atrium is moderately dilated. RIGHT ATRIUM: The atrium is normal in size. ATRIAL SEPTUM: Color Doppler shows no shunt. MITRAL VALVE: Mildly calcified annulus. Leaflet separa tion is normal. Doppler: Transvalvular velocity is within the normal r marlen. There is no evidence for stenosis. There is mild, 1+ regurgitat ion. The peak diastolic gradient is 3 mm Hg. AORTIC VALVE: Trileaflet; moderately thickened, modera tely calcified leaflets. Doppler: There is mild, 1+ regurgitation. Di mensionless index: 0.46. The valve area by the velocity-time integ ral method is 1.4 cm^2. The valve area index by the velocity-time integr al method is 0.8 cm^2/m^2. The mean systolic gradient is 10 mm Hg. The peak systolic gradient is 20 mm Hg. The peak systolic velocity is 2. 2 m/sec. Findings suggest mild stenosis TRICUSPID VALVE: Structurally normal valve. Doppler: T here is mild, 1+ regurgitation. PULMONIC VALVE: Structurally normal valve. Doppler: Th ere is mild, 1+ regurgitation. AORTA: The aorta is normal. PULMONARY ARTERY: Main pulmonary artery: Normal. PERICARDIUM: There is no pericardial effusion. SYSTEMIC VEINS: Inferior vena cava: The vessel is dilated. The IVC col lapses by greater than 50% with inspiration. Measurements Value Reference Aortic root ID 2.6 cm <3.9 Aortic root ID, STJ, ED (L) 2.2 cm 2.3 - 3.5 Aortic root ID/bsa, STJ, ED 1.3 cm/m^2 1.1 - 1.9 Value Reference Ascending aorta ID 3.3 cm 2.2 - 3.8 Ascending aorta ID/bsa, A-P (H) 2.0 cm/m^2 1.1 - 1.9 Ascending aorta ID, A-P, S 3.3 cm Ascending aorta ID/bsa, A-P, S 2.0 cm/m^2 Left ventricle Value Reference LV ID, ED (L) 3.4 cm 4.2 - 5.8 LV ID, ES (L) 2.2 cm 2.5 - 4.0 LV ID/bsa, ED (L) 2.0 cm/m^2 2.2 - 3.0 LV ID/bsa, ES 1.3 cm/m^2 1.3 - 2.1 LV PW thickness, ED (H) 1.4 cm 0.6 - 1.0 LV PW/LV ID ratio, ED 0.42 LV wall mass 178 g 96 - 200 LV wall mass/bsa (H) 107 g/m^2 50 - 102 Stroke volume/bsa, 1-p A2C 21.3 ml/m^2 LV end-diastolic volume, 1-p A4C 71 ml 69 - 185 LV end-systolic volume, 1-p A4C 22 ml 22 - 78 LV end-diastolic volume, 2-p 62 ml 62 - 150 LV end-systolic volume, 2-p (L) 20 ml 21 - 61 LV ejection fraction, 2-p 67 % 52 - 72 LV E/e', lateral 13 LV E/e', medial 10.8 LV E/e', average 11.8 Ventricular septum Value Reference IVS thickness, ED (H) 1.5 cm 0.6 - 1.0 LVOT Value Reference LVOT ID, A-P 2.0 cm LVOT mean velocity, S 0.6 m/sec LVOT peak gradient, S 4 mm Hg Stroke volume (SV), LVOT DP 61 ml Stroke index (SV/bsa), LVOT DP 37 ml/m^2 Aortic valve Value Reference Aortic valve peak velocity, S 2.2 m/sec Aortic valve mean velocity, S 1.5 m/sec Aortic mean gradient, S 10 mm Hg Aortic peak gradient, S 20 mm Hg DI 0.46 Aortic valve area, VTI 1.4 cm^2 Aortic valve area/bsa, VTI 0.8 cm^2/m^2 Aortic regurg pressure half-time 273 ms Left atrium Value Reference LA volume/bsa, ES, 2-p (H) 44 ml/m^2 16 - 34 Mitral valve Value Reference Mitral E-wave peak velocity 0.8 m/sec Mitral A-wave peak velocity 1.2 m/sec Mitral deceleration time 127 ms Mitral peak gradient, D 3 mm Hg Mitral E/A ratio, peak 0.7 Tricuspid valve Value Reference Tricuspid regurg peak velocity 2.7 m/sec <=2.8 Tricuspid peak RV-RA gradient 30 mm Hg Right atrium Value Reference RA area, ES, A4C 12 cm^2 10 - 18 Systemic veins Value Reference Estimated RAP 8 mm Hg Right ventricle Value Reference RV ID, minor axis, ED, A4C base (L) 2.1 cm 2.5 - 4.1 RV ID, minor axis, ED, A4C mid (L) 0.8 cm 1.9 - 3.5 TAPSE, 2D (L) 1.4 cm 1.7 - 3.1 RV pressure, S, DP 38 mm Hg RV s', lateral 13.3 cm/sec 6.0 - 13.4 Legend: (L) and (H) jeremías values outside specified reference ra nge. Electronically signed by Mela Hamilton MD 12/08/2019 12:35 Prior Signatures: TRANSTHORACIC ECHOCARDIOGRAM [facility]- PATIENT: Jagruti Ramirez STUDY DATE: 0 [address] : 1945 41 AGE: 74 HT/WT: 165.1 cm (65 60.3 kg in) (132.7 lb) GENDER: M BP: 138 / 58 LOCATION: [facility] PATIENT Inpatient [facility] STATUS: *ORDERING PHYSICIAN: * Ray Ulrich *READING PHYSICIAN: * Mela Hamilton MD *RATOPRINTER: * Bianca Sierra INDICATIONS: Chest pain. CONCLUSIONS SUMMARY: 1. Left ventricle: Systolic function is normal by the biplane method of disks. The estimated ejection fraction is 67%. There a re no regional wall motion abnormalities. Doppler parameters are cons istent with abnormal left ventricular relaxation (grade 1 diastoli c dysfunction). 2. Left atrium: The atrium is moderately dilated. 3. Right atrium: The atrium is normal in size. 4. Mitral valve: Leaflet separation is normal. There i s mild, 1+ regurgitation. 5. Aortic valve: Trileaflet; moderately thickened, mod erately calcified leaflets. There is mild, 1+ regurgitation. The peak sy stolic velocity is 2.2 m/sec. Findings suggest mild stenosis 6. Tricuspid valve: Structurally normal valve. STUDY DATA: Complete transthoracic echocardiogram. P rocedure: Image quality was adequate. M-mode, complete 2D, complete s pectral Doppler, and color flow Doppler images were acquired and archiv ed for permanent storage and are available for subsequent review. Stud y status: Routine. Patient status: Inpatient. ECG RHYTHM: NSR FINDINGS LEFT VENTRICLE: The cavity size is normal. Wall thick ness is mildly increased. Systolic function is normal by the biplane method of disks. The estimated ejection fraction is 67%. There are no r egional wall motion abnormalities. Doppler parameters are consisten t with abnormal left ventricular relaxation (grade 1 diastolic dysfunc tion). RIGHT VENTRICLE: The cavity size is normal. Systolic function is normal. Right ventricular systolic pressure is at the upper limits of normal. VENTRICULAR SEPTUM: There is no evidence of a ventr icular septal defect. LEFT ATRIUM: The atrium is moderately dilated. RIGHT ATRIUM: The atrium is normal in size. ATRIAL SEPTUM: Color Doppler shows no shunt. MITRAL VALVE: Mildly calcified annulus. Leaflet sepa ration is normal. Doppler: Transvalvular velocity is within the normal range. There is no evidence for stenosis. There is mild, 1+ regurgitat ion. The peak diastolic gradient is 3 mm Hg. AORTIC VALVE: Trileaflet; moderately thickened, mode rately calcified leaflets. Doppler: There is mild, 1+ regurgitation. Dimensionless index: 0.46. The valve area by the velocity-time integ ral method is 1.4 cm^2. The valve area index by the velocity-time integr al method is 0.8 cm^2/m^2. The mean systolic gradient is 10 mm Hg. T he peak systolic gradient is 20 mm Hg. The peak systolic velocity is 2.2 m/sec. Findings suggest mild stenosis TRICUSPID VALVE: Structurally normal valve. Doppl er: There is mild, 1+ regurgitation. PULMONIC VALVE: Structurally normal valve. Doppl er: There is mild, 1+ regurgitation. AORTA: The aorta is normal. PULMONARY ARTERY: Main pulmonary artery: Normal. PERICARDIUM: There is no pericardial effusion. SYSTEMIC VEINS: Inferior vena cava: The vessel is dilated. The IVC col lapses by greater than 50% with inspiration. Measurements Value Reference Aortic root ID 2.6 cm <3.9 Aortic root ID, STJ, ED (L) 2.2 cm 2.3 - 3.5 Aortic root ID/bsa, STJ, ED 1.3 cm/m^2 1.1 - 1.9 Value Reference Ascending aorta ID 3.3 cm 2.2 - 3.8 Ascending aorta ID/bsa, A-P (H) 2.0 cm/m^2 1.1 - 1.9 Ascending aorta ID, A-P, S 3.3 cm Ascending aorta ID/bsa, A-P, S 2.0 cm/m^2 Left ventricle Value Reference LV ID, ED (L) 3.4 cm 4.2 - 5.8 LV ID, ES (L) 2.2 cm 2.5 - 4.0 LV ID/bsa, ED (L) 2.0 cm/m^2 2.2 - 3.0 LV ID/bsa, ES 1.3 cm/m^2 1.3 - 2.1 LV PW thickness, ED (H) 1.4 cm 0.6 - 1.0 LV PW/LV ID ratio, ED 0.42 LV wall mass 178 g 96 - 200 LV wall mass/bsa (H) 107 g/m^2 50 - 102 Stroke volume/bsa, 1-p A2C 21.3 ml/m^2 LV end-diastolic volume, 1-p A4C 71 ml 69 - 185 LV end-systolic volume, 1-p A4C 22 ml 22 - 78 LV end-diastolic volume, 2-p 62 ml 62 - 150 LV end-systolic volume, 2-p (L) 20 ml 21 - 61 LV ejection fraction, 2-p 67 % 52 - 72 LV E/e', lateral 13 LV E/e', medial 10.8 LV E/e', average 11.8 Ventricular septum Value Reference IVS thickness, ED (H) 1.5 cm 0.6 - 1.0 LVOT Value Reference LVOT ID, A-P 2.0 cm LVOT mean velocity, S 0.6 m/sec LVOT peak gradient, S 4 mm Hg Stroke volume (SV), LVOT DP 61 ml Stroke index (SV/bsa), LVOT DP 37 ml/m^2 Aortic valve Value Reference Aortic valve peak velocity, S 2.2 m/sec Aortic valve mean velocity, S 1.5 m/sec Aortic mean gradient, S 10 mm Hg Aortic peak gradient, S 20 mm Hg DI 0.46 Aortic valve area, VTI 1.4 cm^2 Aortic valve area/bsa, VTI 0.8 cm^2/m^ 2 Aortic regurg pressure half-time 273 ms Left atrium Value Reference LA volume/bsa, ES, 2-p (H) 44 ml/m^2 16 - 34 Mitral valve Value Reference Mitral E-wave peak velocity 0.8 m/sec Mitral A-wave peak velocity 1.2 m/sec Mitral deceleration time 127 ms Mitral peak gradient, D 3 mm Hg Mitral E/A ratio, peak 0.7 Tricuspid valve Value Reference Tricuspid regurg peak velocity 2.7 m/sec <=2.8 Tricuspid peak RV-RA gradient 30 mm Hg Right atrium Value Reference RA area, ES, A4C 12 cm^2 10 - 18 Systemic veins Value Reference Estimated RAP 8 mm Hg Right ventricle Value Reference RV ID, minor axis, ED, A4C base (L) 2.1 cm 2.5 - 4.1 RV ID, minor axis, ED, A4C mid (L) 0.8 cm 1.9 - 3.5 TAPSE, 2D (L) 1.4 cm 1.7 - 3.1 RV pressure, S, DP 38 mm Hg RV s', lateral 13.3 cm/sec 6.0 - 13.4 Legend: (L) and (H) jeremías values outside specified reference range. Electronically signed by Mela Hamilton MD 12/08/2019 12:35 Prior Signatures: Echo Complete w/wo Contrast on 12-08-2019 Echo Patient Name: JAGRUTI RAMIREZ Normal [facility] w/wo System Contrast Ultrasound Exam Date/Time 12/08/2019 11:41:34 EDT Exam Echo Complete w/wo Contrast Ordering Physician DO ULRICH GEORGE E Accession Number [id number] Reason For Exam chest pain Report TRANSTHORACIC ECHOCARDIOGRAM PATIENT: Jagruti Ramirez STUDY DATE: 12/08/2019 : 1945 AGE: 74 HT/WT: 165.1 cm (65 60.3 kg in) (132.7 lb) GENDER: M BP: 138 / 58 LOCATION: [facility] PATIENT Inpatient [facility] STATUS: *ORDERING PHYSICIAN: * Ray Ulrich *READING PHYSICIAN: * Mela Hamilton MD *RATOPRINTER: * Bianca Moss INDICATIONS: Chest pain. CONCLUSIONS SUMMARY: 1. Left ventricle: Systolic function is normal by the biplane method of disks. The estimated ejection fraction is 67%. There a re no regional wall motion abnormalities. Doppler parameters are cons istent with abnormal left ventricular relaxation (grade 1 diastoli c dysfunction). 2. Left atrium: The atrium is moderately dilated. 3. Right atrium: The atrium is normal in size. 4. Mitral valve: Leaflet separation is normal. There i s mild, 1+ regurgitation. 5. Aortic valve: Trileaflet; moderately thickened, mod erately calcified leaflets. There is mild, 1+ regurgitation. The peak sy stolic velocity is 2.2 m/sec. Findings suggest mild stenosis 6. Tricuspid valve: Structurally normal valve. STUDY DATA: Complete transthoracic echocardiogram. Pro cedure: Image quality was adequate. M-mode, complete 2D, complete sp ectral Doppler, and color flow Doppler images were acquired and archiv ed for permanent storage and are available for subsequent review. Study status: Routine. Patient status: Inpatient. ECG RHYTHM: NSR FINDINGS LEFT VENTRICLE: The cavity size is normal. Wall thickn ess is mildly increased. Systolic function is normal by the biplane method of disks. The estimated ejection fraction is 67%. There are no r egional wall motion abnormalities. Doppler parameters are consisten t with abnormal left ventricular relaxation (grade 1 diastolic dysfunc tion). RIGHT VENTRICLE: The cavity size is normal. Systolic f unction is normal. Right ventricular systolic pressure is at the upper limits of normal. VENTRICULAR SEPTUM: There is no evidence of a ventricu lar septal defect. LEFT ATRIUM: The atrium is moderately dilated. RIGHT ATRIUM: The atrium is normal in size. ATRIAL SEPTUM: Color Doppler shows no shunt. MITRAL VALVE: Mildly calcified annulus. Leaflet separa tion is normal. Doppler: Transvalvular velocity is within the normal r marlen. There is no evidence for stenosis. There is mild, 1+ regurgitat ion. The peak diastolic gradient is 3 mm Hg. AORTIC VALVE: Trileaflet; moderately thickened, modera tely calcified leaflets. Doppler: There is mild, 1+ regurgitation. Di mensionless index: 0.46. The valve area by the velocity-time integ ral method is 1.4 cm^2. The valve area index by the velocity-time integr al method is 0.8 cm^2/m^2. The mean systolic gradient is 10 mm Hg. The peak systolic gradient is 20 mm Hg. The peak systolic velocity is 2. 2 m/sec. Findings suggest mild stenosis TRICUSPID VALVE: Structurally normal valve. Doppler: T here is mild, 1+ regurgitation. PULMONIC VALVE: Structurally normal valve. Doppler: Th ere is mild, 1+ regurgitation. AORTA: The aorta is normal. PULMONARY ARTERY: Main pulmonary artery: Normal. PERICARDIUM: There is no pericardial effusion. SYSTEMIC VEINS: Inferior vena cava: The vessel is dilated. The IVC col lapses by greater than 50% with inspiration. Measurements Value Reference Aortic root ID 2.6 cm <3.9 Aortic root ID, STJ, ED (L) 2.2 cm 2.3 - 3.5 Aortic root ID/bsa, STJ, ED 1.3 cm/m^2 1.1 - 1.9 Value Reference Ascending aorta ID 3.3 cm 2.2 - 3.8 Ascending aorta ID/bsa, A-P (H) 2.0 cm/m^2 1.1 - 1.9 Ascending aorta ID, A-P, S 3.3 cm Ascending aorta ID/bsa, A-P, S 2.0 cm/m^2 Left ventricle Value Reference LV ID, ED (L) 3.4 cm 4.2 - 5.8 LV ID, ES (L) 2.2 cm 2.5 - 4.0 LV ID/bsa, ED (L) 2.0 cm/m^2 2.2 - 3.0 LV ID/bsa, ES 1.3 cm/m^2 1.3 - 2.1 LV PW thickness, ED (H) 1.4 cm 0.6 - 1.0 LV PW/LV ID ratio, ED 0.42 LV wall mass 178 g 96 - 200 LV wall mass/bsa (H) 107 g/m^2 50 - 102 Stroke volume/bsa, 1-p A2C 21.3 ml/m^2 LV end-diastolic volume, 1-p A4C 71 ml 69 - 185 LV end-systolic volume, 1-p A4C 22 ml 22 - 78 LV end-diastolic volume, 2-p 62 ml 62 - 150 LV end-systolic volume, 2-p (L) 20 ml 21 - 61 LV ejection fraction, 2-p 67 % 52 - 72 LV E/e', lateral 13 LV E/e', medial 10.8 LV E/e', average 11.8 Ventricular septum Value Reference IVS thickness, ED (H) 1.5 cm 0.6 - 1.0 LVOT Value Reference LVOT ID, A-P 2.0 cm LVOT mean velocity, S 0.6 m/sec LVOT peak gradient, S 4 mm Hg Stroke volume (SV), LVOT DP 61 ml Stroke index (SV/bsa), LVOT DP 37 ml/m^2 Aortic valve Value Reference Aortic valve peak velocity, S 2.2 m/sec Aortic valve mean velocity, S 1.5 m/sec Aortic mean gradient, S 10 mm Hg Aortic peak gradient, S 20 mm Hg DI 0.46 Aortic valve area, VTI 1.4 cm^2 Aortic valve area/bsa, VTI 0.8 cm^2/m^2 Aortic regurg pressure half-time 273 ms Left atrium Value Reference LA volume/bsa, ES, 2-p (H) 44 ml/m^2 16 - 34 Mitral valve Value Reference Mitral E-wave peak velocity 0.8 m/sec Mitral A-wave peak velocity 1.2 m/sec Mitral deceleration time 127 ms Mitral peak gradient, D 3 mm Hg Mitral E/A ratio, peak 0.7 Tricuspid valve Value Reference Tricuspid regurg peak velocity 2.7 m/sec <=2.8 Tricuspid peak RV-RA gradient 30 mm Hg Right atrium Value Reference RA area, ES, A4C 12 cm^2 10 - 18 Systemic veins Value Reference Estimated RAP 8 mm Hg Right ventricle Value Reference RV ID, minor axis, ED, A4C base (L) 2.1 cm 2.5 - 4.1 RV ID, minor axis, ED, A4C mid (L) 0.8 cm 1.9 - 3.5 TAPSE, 2D (L) 1.4 cm 1.7 - 3.1 RV pressure, S, DP 38 mm Hg RV s', lateral 13.3 cm/sec 6.0 - 13.4 Legend: (L) and (H) jeremías values outside specified reference ra nge. Electronically signed by Mela Hamilton MD 12/08/2019 12:35 Prior Signatures: Final Dictated: 12/08/2019 12:35 pm Dictating Physician: Deon HAMILTON TED Signed Date and Time: 12/08/2019 12:35 pm Signed by: Deon HAMILTON TED Glucose,Bedside on 1 Glucose [Mass/Vol] 223 mg/dL High 70-[facility] Comment on above: Result Comment: Test perform ed by glucose meter. Results may be 10%-15% lower than serum/plasma values. (C JENNIFER ID [id number]) Performed By: #### HEMDF, LA CT3, BNP3, CMP3, LIPA4, TROPN, PT #### [facility] [address] [place] [address] Glucose [Mass/Vol] 156 mg/dL High 70-100 [facility] Comment on above: Result Comment: Test perform ed by glucose meter. Results may be 10%-15% lower than serum/plasma values. (C JENNIFER ID [id number]) Performed By: #### HEMDF, LA CT3, BNP3, CMP3, LIPA4, TROPN, PT #### [facility] [address] [place] [address] Glucose [Mass/Vol] 136 mg/dL High 70-100 [facility] Comment on above: Result Comment: Test perform ed by glucose meter. Results may be 10%-15% lower than serum/plasma values. (C JENNIFER ID [id number]) Performed By: #### HEMDF, LA CT3, BNP3, CMP3, LIPA4, TROPN, PT #### [facility] [address] [place] [address] Glucose [Mass/Vol] 183 mg/dL High 70-100 [facility] Comment on above: Result Comment: Test perform ed by glucose meter. Results may be 10%-15% lower than serum/plasma values. (C JENNIFER ID [id number]) Performed By: #### HEMDF, LA CT3, BNP3, CMP3, LIPA4, TROPN, PT #### [facility] [address] [place] [address] Hemogram w/ Autodiff on 12-08-2019 Abs Baso Cnt 0.0 10*3/uL Normal 0.0-0.2 [facility] Comment on above: Performed By: #### HEMDF, LA CT3, BNP3, CMP3, LIPA4, TROPN, PT #### [facility] [address] [place] [address] Abs Neutrophile Cnt 4.5 10*3/uL Normal 1.8-7.0 [facility] Comment on above: Performed By: #### HEMDF, LA CT3, BNP3, CMP3, LIPA4, TROPN, PT #### [place] [address] [place] [address] Basophils/100 WBC (Bld) 0.3 % Normal 0.0-2.0 [facility] Comment on above: Performed By: #### HEMDF, LA CT3, BNP3, CMP3, LIPA4, TROPN, PT #### [facility] [address] [place] [address] Eosinophils (Bld) [#/Vol] 0.1 10*3/uL Normal 0.0-0.5 [facility] Comment on above: Performed By: #### HEMDF, LA CT3, BNP3, CMP3, LIPA4, TROPN, PT #### [place] [address] [place] [address] Eosinophils/100 WBC (Bld) 1.4 % Normal 1.0-6.0 [facility] Comment on above: Performed By: #### HEMDF, LA CT3, BNP3, CMP3, LIPA4, TROPN, PT #### [facility] [address] [place] [address] Erythrocyte distribution width (RBC) 14.4 % Normal 11.5 -14.5 [facility] [Ratio] Comment on above: Performed By: #### HEMDF, LA CT3, BNP3, CMP3, LIPA4, TROPN, PT #### [facility] [address] [place] [address] Granulocytes/100 WBC (Bld) 73.8 % Normal 40.0-80.0 [facility] Comment on above: Performed By: #### HEMDF, LA CT3, BNP3, CMP3, LIPA4, TROPN, PT #### [facility] [address] [place] [address] Hematocrit (Bld) [Volume fraction] 33.6 % Low 40.0-5 2.0 [facility] Comment on above: Performed By: #### HEMDF, LA CT3, BNP3, CMP3, LIPA4, TROPN, PT #### [facility] [address] [place] [address] Hemoglobin (Bld) [Mass/Vol] 11.7 g/dL Low 13.0-18.0 [facility] Comment on above: Performed By: #### HEMDF, LA CT3, BNP3, CMP3, LIPA4, TROPN, PT #### [facility] [address] [place] [address] Lymphocytes (Bld) [#/Vol] 0.6 10*3/uL Low 1.0-4.3 [facility] Comment on above: Performed By: #### HEMDF, LA CT3, BNP3, CMP3, LIPA4, TROPN, PT #### [facility] [address] [place] [address] Lymphocytes/100 WBC (Bld) 9.8 % Low 20.0-40.0 [facility] Comment on above: Performed By: #### HEMDF, LA CT3, BNP3, CMP3, LIPA4, TROPN, PT #### [facility] [address] [place] [address] MCH (RBC) [Entitic mass] 35.3 pg High 26.0-34.0 [facility] Comment on above: Performed By: #### HEMDF, LA CT3, BNP3, CMP3, LIPA4, TROPN, PT #### [facility] [address] [place] [address] MCHC (RBC) [Mass/Vol] 35.0 % Normal 32.0-36.0 [facility] Comment on above: Performed By: #### HEMDF, LA CT3, BNP3, CMP3, LIPA4, TROPN, PT #### [place] [address] [place] [address] MCV (RBC) [Entitic vol] 100.9 fL High 80.0-98.0 [facility] Comment on above: Performed By: #### HEMDF, LA CT3, BNP3, CMP3, LIPA4, TROPN, PT #### [place] [address] [place] [address] Monocytes (Bld) [#/Vol] 0.9 10*3/uL High 0.0-0.8 [facility] Comment on above: Performed By: #### HEMDF, LA CT3, BNP3, CMP3, LIPA4, TROPN, PT #### [place] [address] [place] [address] Monocytes/100 WBC (Bld) 14.7 % High 2.0-10.0 [facility] Comment on above: Performed By: #### HEMDF, LA CT3, BNP3, CMP3, LIPA4, TROPN, PT #### [place] [address] [place] [address] Platelet mean volume (Bld) [Entitic vol] 10.5 fL High 7.4-10.4 [facility] Comment on above: Performed By: #### HEMDF, LA CT3, BNP3, CMP3, LIPA4, TROPN, PT #### [facility] [address] [place] [address] Platelets (Bld) [#/Vol] 123 10*3/uL Low 140-440 [facility] Comment on above: Performed By: #### HEMDF, LA CT3, BNP3, CMP3, LIPA4, TROPN, PT #### [facility] [address] [place] [address] RBC (Bld) [#/Vol] 3.33 10*6/uL Low 4.40-5.90 [facility] Comment on above: Performed By: #### HEMDF, LA CT3, BNP3, CMP3, LIPA4, TROPN, PT #### [facility] [address] [place] [address] WBC (Bld) [#/Vol] 6.1 10*3/uL Normal 3.6-10.7 [facility] Comment on above: Performed By: #### HEMDF, LA CT3, BNP3, CMP3, LIPA4, TROPN, PT #### [facility] [address] [place] [address] Hepatic Function on 12-08-2019 Albumin [Mass/Vol] 3.6 g/dL Normal 3.5-5.0 [facility] Comment on above: Order Comment: Slight Hemoly sis Performed By: #### HEMDF, LA CT3, BNP3, CMP3, LIPA4, TROPN, PT #### [facility] [address] [place] [address] ALP [Catalytic activity/Vol] 115 U/L Normal 38-126 [facility] Comment on above: Order Comment: Slight Hemoly sis Performed By: #### HEMDF, LA CT3, BNP3, CMP3, LIPA4, TROPN, PT #### [facility] [address] [place] [address] ALT [Catalytic activity/Vol] 94 U/L High 0-49 [facility] Comment on above: Order Comment: Slight Hemoly sis Result Comment: The ALT test is performed by an updated assay method. Please note that the referen ce intervals have been changed and are now sex spec ific. Performed By: #### HEMDF, LA CT3, BNP3, CMP3, LIPA4, TROPN, PT #### [facility] [address] [place] [address] AST [Catalytic activity/Vol] 120 U/L High 15-46 [facility] Comment on above: Order Comment: Slight Hemoly sis Performed By: #### HEMDF, LA CT3, BNP3, CMP3, LIPA4, TROPN, PT #### [facility] [address] [place] [address] Bilirubin [Mass/Vol] 1.1 mg/dL Normal 0.2-1.3 [facility] Comment on above: Order Comment: Slight Hemoly sis Performed By: #### HEMDF, LA CT3, BNP3, CMP3, LIPA4, TROPN, PT #### [facility] [address] [place] [address] Bilirubin.direct [Mass/Vol] 0.0 mg/dL Normal 0.0-0.3 [facility] Comment on above: Order Comment: Slight Hemoly sis Performed By: #### HEMDF, LA CT3, BNP3, CMP3, LIPA4, TROPN, PT #### [facility] [address] [place] [address] Protein [Mass/Vol] 6.4 g/dL Normal 6.3-8.2 [facility] Comment on above: Order Comment: Slight Hemoly sis Performed By: #### HEMDF, LA CT3, BNP3, CMP3, LIPA4, TROPN, PT #### [facility] [address] [place] [address] Hepatic Function Panel on 12-08-2019 Albumin [Mass/Vol] 3.6 g/dL 3.5 - 5 g/dL [place], [place] ALP [Catalytic activity/Vol] 115 U/L 38 - 126 U/L [place], [place] ALT [Catalytic activity/Vol] 94 U/L High 0 - 49 U/L [place] Comment on above: The ALT test is performed by an updated assay method. Please note that the referen ce intervals have been changed and are now sex spec ific. AST [Catalytic activity/Vol] 120 U/L High 15 - 46 U/L [place] Bilirubin Ql (U) 1.1 mg/dL 0.2 - 1.3 mg/dL [place] Bilirubin.direct [Mass/Vol] 0.0 mg/dL 0 - 0.3 mg/dL [place] Protein [Mass/Vol] 6.4 g/dL 6.3 - 8.2 g/dL [place], [place] Lipase on 12-08-2019 Lipase [Catalytic activity/Vol] 930 U/L High 23 - 300 U/L [place] Lipase [Catalytic activity/Vol] 930 U/L High 23-300 [facility] Comment on above: Order Comment: Slight Hemoly sis Performed By: #### HEMDF, LA CT3, BNP3, CMP3, LIPA4, TROPN, PT #### [facility] [address] [place] [address] Other on 12-08-2019 Interpretation and review of Abnormal [place], [place] laboratory results Test Performed by [place] [place] [facility], [address], [place], [place] [address] Slight Hemolysis POCT Glucose on 11-18 Glucose [Mass/Vol] 223 mg/dL High 70 - 100 mg/dL [place], [place] Comment on above: Test performed by glucose me ter. Results may be 10%-15% lower than serum/plasma values. ( CLIA ID [id number]) Glucose [Mass/Vol] 156 mg/dL High 70 - 100 mg/dL [place], [place] Comment on above: Test performed by glucose me ter. Results may be 10%-15% lower than serum/plasma values. ( CLIA ID [id number]) Glucose [Mass/Vol] 136 mg/dL High 70 - 100 mg/dL [place], [place] Comment on above: Test performed by glucose me ter. Results may be 10%-15% lower than serum/plasma values. ( CLIA ID [id number]) Glucose [Mass/Vol] 183 mg/dL High 70 - 100 mg/dL [place], [place] Comment on above: Test performed by glucose me ter. Results may be 10%-15% lower than serum/plasma values. ( CLIA ID [id number]) Interpretation and review of Abnormal [place], [place] laboratory results Interpretation and review of Abnormal [place] laboratory results Interpretation and review of Abnormal [place] laboratory results Interpretation and review of Abnormal [place] laboratory results Test Performed by [facility], [address], [place], [place] [address] Test Performed by [facility], [address], [place], [place] [address] Test Performed by [facility], [address], [place], [place] [address] Test Performed by [facility], [address], [place], [place] [address] SARS-CoV-2 on 2019 SARS-CoV-2 SARS-CoV-2 --> Status: F Normal [facility] Not Detected Expected Result: Not Detected _ Real-time, RT-PCR performed on the [facility] by the [facility]. Negative results do not preclude SARS-CoV-2 infection and should not be used as the sole basis for treatment or other patient management decisions. This assay was developed by [employer] and distributed under an Emergency Use Authorization (EUA) granted by the FDA for the qualitative detection of SARS-CoV-2 nucleic acid. Results were determined from a pool consisting of specimens from additional patients. This test was modified, and its performance characteristics, showing minimal loss of sensitivity, have been validated by [facility]. Approval is pending review by the U. S. Food and Drug Administration. If symptoms are severe and persist, testing a new specimen may be warranted. Additionally, IgG testing may be considered for patients more than 7-10 days post onset of symptoms. Expected Result: Not Detected _ Real-time, RT-PCR performed on the [facility] by the [facility]. Negative results do not preclude SARS-CoV-2 infection and should not be used as the sole basis for treatment or other patient management decisions. This assay was developed by [employer] and distributed under an Emergency Use Authorization (EUA) granted by the FDA for the qualitative detection of SARS-CoV-2 nucleic acid. Results were determined from a pool consisting of specimens from additional patients. This test was modified, and its performance characteristics, showing minimal loss of sensitivity, have been validated by [facility]. Approval is pending review by the U. S. Food and Drug Administration. If symptoms are severe and persist, testing a new specimen may be warranted. Additionally, IgG testing may be considered for patients more than 7-10 days post onset of symptoms. Comment on above: Order Comment: Slight Hemoly sis Performed By: #### HEMDF, LA CT3, BNP3, CMP3, LIPA4, TROPN, PT #### [facility] [address] [place] [address] Basic Metabolic Panel on 12-07-2019 Anion gap [Moles/Vol] 9 mmol/L [place] Anion gap [Moles/Vol] 9 Normal [facility] Comment on above: Performed By: #### HEMDF, LA CT3, BNP3, CMP3, LIPA4, TROPN, PT #### [facility] [address] [place] [address] Calcium [Mass/Vol] 8.4 mg/dL 8.4 - 10.4 mg/dL [place] Calcium [Mass/Vol] 8.4 mg/dL Normal 8.4-10.4 [facility] Comment on above: Performed By: #### HEMDF, LA CT3, BNP3, CMP3, LIPA4, TROPN, PT #### [facility] [address] [place] [address] Chloride [Moles/Vol] 105 mmol/L 98 - 107 mmol/L [place], [place] Chloride [Moles/Vol] 105 mmol/L Normal 98-107 [facility] Comment on above: Performed By: #### HEMDF, LA CT3, BNP3, CMP3, LIPA4, TROPN, PT #### [facility] [address] [place] [address] CO2 [Moles/Vol] 20 mmol/L Low 22 - 30 mmol/L [place], [place] CO2 [Moles/Vol] 20 mmol/L Low 22-30 [facility] Comment on above: Performed By: #### HEMDF, LA CT3, BNP3, CMP3, LIPA4, TROPN, PT #### [facility] [address] [place] [address] Creatinine [Mass/Vol] 0.64 mg/dL 0.52 - 1.25 mg/dL [place], [place] Creatinine [Mass/Vol] 0.64 mg/dL Normal 0.52-1.25 [facility] Comment on above: Performed By: #### HEMDF, LA CT3, BNP3, CMP3, LIPA4, TROPN, PT #### [facility] [address] [place] [address] EGFR IF NonAfrican [place] >90.0 >60 mL/min [place] Comment on above: KDIGO guidelines provide the following GFR categories: Stage GFR(ml/min/1.73 m2) Terms G1 >=90 Normal or h igh G2 60-89 Mildly decr eased* G3a 45-59 Mildly to moderately decreased G3b 30-44 Moderately to severely decreased G4 15-29 Severely de creased G5 <15 Kidne y failure *Relative to young adult lev el. In the absence of evidence o f kidney damage, neither GFR category G1 nor G2 fulfill t he criteria for CKD. The CKD-EPI equation is skylar dated in individuals 18 years of age and older. Currently the best equation for estimating glomerular filtra tion rate (GFR) from serum creatinine in children is th e Bedside Jarvis equation. It is less accurate in patie nts with extremes of muscle mass, restriction of dietary protein, ingestion of creatine, extra-renal metabolism of cr eatinine, or treatment with medications that affect chani l tubular creatinine secretion. GFR/1.73 sq M predicted among mL/min/{1.73_m2} >60 mL/ min [place] blacks MDRD (S/P/Bld) [Vol rate/Area] GFR/1.73 sq M predicted among mL/min/{1.73_m2} Normal >60 [facility] blacks MDRD (S/P/Bld) [Vol rate/Area] Comment on above: Performed By: #### HEMDF, LA CT3, BNP3, CMP3, LIPA4, TROPN, PT #### [facility] [address] [place] [address] GFR/1.73 sq M predicted among mL/min/{1.73_m2} Normal >60 [facility] non-blacks MDRD (S/P/Bld) [Vol rate/Area] Comment on above: Result Comment: KDIGO guidel beveryl provide the following GFR categories: Stage GFR(ml/min/1.73 m2) Te rosaline G1 >=90 Normal or high G2 60-89 Mildly decreased* G3a 45-59 Mildly to moderate ly decreased G3b 30-44 Moderately to alex rely decreased G4 15-29 Severely decreased G5 <15 Kidney failure *Relative to young adult lisandra el. In the absence of evidence o f kidney damage, neither GFR category G1 nor G2 fulfill t he criteria for CKD. The CKD-EPI equation is skylar dated in individuals 18 years of age and older. Currently the best equation for estimating glomerular filtra tion rate (GFR) from serum creatinine in children is e Bedside Jarvis equation. It is less accurate in patie nts with extremes of muscle mass, restriction of dietary protein, ingestion of creatine, extra-renal metabolism of cr eatinine, or treatment with medications that affect chani l tubular creatinine secretion. Performed By: #### HEMDF, LA CT3, BNP3, CMP3, LIPA4, TROPN, PT #### [facility] [address] [place] [address] Glucose [Mass/Vol] 103 mg/dL High 70 - 100 mg/dL [facility], [place] Glucose [Mass/Vol] 103 mg/dL High 70-100 [facility] Comment on above: Performed By: #### HEMDF, LA CT3, BNP3, CMP3, LIPA4, TROPN, PT #### [facility] [address] [facility] [place] [address] Potassium [Moles/Vol] 3.6 mmol/L 3.5 - 5.1 mmol/L [facility], [place] Potassium [Moles/Vol] 3.6 mmol/L Normal 3.5-5.1 [facility] Comment on above: Performed By: #### HEMDF, LA CT3, BNP3, CMP3, LIPA4, TROPN, PT #### [facility] [address] [place] [address] Sodium [Moles/Vol] 133 mmol/L Low 135 - 145 mmol/L [place], [place] Sodium [Moles/Vol] 133 mmol/L Low 135-145 [facility] Comment on above: Performed By: #### HEMDF, LA CT3, BNP3, CMP3, LIPA4, TROPN, PT #### [facility] [address] [place] [address] Urea nitrogen [Mass/Vol] 10 mg/dL 7 - 20 mg/dL [place], [place] Urea nitrogen [Mass/Vol] 10 mg/dL Normal 7-20 [facility] Comment on above: Performed By: #### HEMDF, LA CT3, BNP3, CMP3, LIPA4, TROPN, PT #### [facility] [address] [place] [address] CBC Auto Differential on 12-07-2019 Absolute Baso # 0.0 10*3/uL 0 - 0.2 10*3/uL [place], [place] Absolute Neut # 5.7 10*3/uL 1.8 - 7 10*3/uL [place] Basophils/100 WBC (Bld) 0.3 % 0 - 2 % [place], [place] Eosinophils (Bld) [#/Vol] 0.1 10*3/uL 0 - 0.5 10*3/uL [place] Eosinophils/100 WBC (Bld) 0.9 % Low 1 - 6 % [place], [place] Erythrocyte distribution 14.6 % High 11.5 - 14.5 % [place], [place] width (RBC) [Ratio] Granulocytes/100 WBC (Bld) 81.4 % High 40 - 80 % [place], [place] Hematocrit (Bld) [Volume 30.0 % Low 40 - 52 % [place], [place] fraction] Hemoglobin (Bld) [Mass/Vol] 10.3 g/dL Low 13 - 18 g/dL [place] Lymphocytes (Bld) [#/Vol] 0.4 10*3/uL Low 1 - 4.3 10*3/uL [place] Lymphocytes/100 WBC (Bld) 6.0 % Low 20 - 40 % [place] MCH (RBC) [Entitic mass] 35.0 pg High 26 - 34 pg [place] MCHC (RBC) [Mass/Vol] 34.5 % 32 - 36 % [place] MCV (RBC) [Entitic vol] 101.5 fL High 80 - 98 fL [place] Monocytes (Bld) [#/Vol] 0.8 10*3/uL 0 - 0.8 10*3/uL [place], [place] Monocytes/100 WBC (Bld) 11.4 % High 2 - 10 % [place] Platelet mean volume (Bld) 9.4 fL 7.4 - 10.4 fL [place] [Entitic vol] Platelets (Bld) [#/Vol] 100 10*3/uL Low 140 - 440 10*3/uL [place] RBC (Bld) [#/Vol] 2.95 10*6/uL Low 4.4 - 5.9 10*6/uL [place] WBC (Bld) [#/Vol] 7.0 10*3/uL 3.6 - 10.7 10*3/uL [place] Glucose,Bedside on 1 Glucose [Mass/Vol] 101 mg/dL High 70-100 [facility] Comment on above: Result Comment: Test perform ed by glucose meter. Results may be 10%-15% lower than serum/plasma values. (C JENNIFER ID [id number]) Performed By: #### HEMDF, LA CT3, BNP3, CMP3, LIPA4, TROPN, PT #### [facility] [address] [place] [address] Glucose [Mass/Vol] 108 mg/dL High 70-100 [facility] Comment on above: Result Comment: Test perform ed by glucose meter. Results may be 10%-15% lower than serum/plasma values. (C JENNIFER ID [id number]) Performed By: #### HEMDF, LA CT3, BNP3, CMP3, LIPA4, TROPN, PT #### [facility] [address] [place] [address] Glucose [Mass/Vol] 166 mg/dL High 70-100 [facility] Comment on above: Result Comment: Test perform ed by glucose meter. Results may be 10%-15% lower than serum/plasma values. (C JENNIFER ID [id number]) Performed By: #### HEMDF, LA CT3, BNP3, CMP3, LIPA4, TROPN, PT #### [facility] [address] [place] [address] Glucose [Mass/Vol] 199 mg/dL High 70-100 [facility] Comment on above: Result Comment: Test perform ed by glucose meter. Results may be 10%-15% lower than serum/plasma values. (C JENNIFER ID [id number]) Performed By: #### HEMDF, LA CT3, BNP3, CMP3, LIPA4, TROPN, PT #### [facility] [address] [place] [address] Glucose [Mass/Vol] 152 mg/dL High 70-100 [facility] Comment on above: Result Comment: Test perform ed by glucose meter. Results may be 10%-15% lower than serum/plasma values. (C JENNIFER ID [id number]) Performed By: #### HEMDF, LA CT3, BNP3, CMP3, LIPA4, TROPN, PT #### [facility] [address] [place] [address] Glucose [Mass/Vol] 146 mg/dL High 70-100 [facility] Comment on above: Result Comment: Test perform ed by glucose meter. Results may be 10%-15% lower than serum/plasma values. (C JENNIFER ID [id number]) Performed By: #### HEMDF, LA CT3, BNP3, CMP3, LIPA4, TROPN, PT #### [facility] [address] [place] [address] Glucose [Mass/Vol] 124 mg/dL High 70-100 [facility] Comment on above: Result Comment: Test perform ed by glucose meter. Results may be 10%-15% lower than serum/plasma values. (C JENNIFER ID [id number]) Performed By: #### HEMDF, LA CT3, BNP3, CMP3, LIPA4, TROPN, PT #### [facility] [address] [place] [address] Glucose [Mass/Vol] 221 mg/dL High 70-100 [facility] Comment on above: Result Comment: Test perform ed by glucose meter. Results may be 10%-15% lower than serum/plasma values. (C JENNIFER ID [id number]) Performed By: #### HEMDF, LA CT3, BNP3, CMP3, LIPA4, TROPN, PT #### [facility] [address] [place] [address] Hemogram w/ Autodiff on 12-07-2019 Abs Baso Cnt 0.0 10*3/uL Normal 0.0-0.2 [facility] Comment on above: Performed By: #### HEMDF, LA CT3, BNP3, CMP3, LIPA4, TROPN, PT #### [facility] [address] [place] [address] Abs Neutrophile Cnt 5.7 10*3/uL Normal 1.8-7.0 [facility] Comment on above: Performed By: #### HEMDF, LA CT3, BNP3, CMP3, LIPA4, TROPN, PT #### [facility] [address] [place] [address] Basophils/100 WBC (Bld) 0.3 % Normal 0.0-2.0 [facility] Comment on above: Performed By: #### HEMDF, LA CT3, BNP3, CMP3, LIPA4, TROPN, PT #### [facility] [address] [place] [address] Eosinophils (Bld) [#/Vol] 0.1 10*3/uL Normal 0.0-0.5 [facility] Comment on above: Performed By: #### HEMDF, LA CT3, BNP3, CMP3, LIPA4, TROPN, PT #### [facility] [address] [place] [address] Eosinophils/100 WBC (Bld) 0.9 % Low 1.0-6.0 [facility] Comment on above: Performed By: #### HEMDF, LA CT3, BNP3, CMP3, LIPA4, TROPN, PT #### [facility] [address] [place] [address] Erythrocyte distribution width (RBC) 14.6 % High 11.5 -14.5 [facility] [Ratio] Comment on above: Performed By: #### HEMDF, LA CT3, BNP3, CMP3, LIPA4, TROPN, PT #### [facility] [address] [place] [address] Granulocytes/100 WBC (Bld) 81.4 % High 40.0-80.0 [facility] Comment on above: Performed By: #### HEMDF, LA CT3, BNP3, CMP3, LIPA4, TROPN, PT #### [facility] [address] [place] [address] Hematocrit (Bld) [Volume fraction] 30.0 % Low 40.0-5 2.0 [facility] Comment on above: Performed By: #### HEMDF, LA CT3, BNP3, CMP3, LIPA4, TROPN, PT #### [facility] [address] [place] [address] Hemoglobin (Bld) [Mass/Vol] 10.3 g/dL Low 13.0-18.0 [facility] Comment on above: Performed By: #### HEMDF, LA CT3, BNP3, CMP3, LIPA4, TROPN, PT #### [facility] [address] [place] [address] Lymphocytes (Bld) [#/Vol] 0.4 10*3/uL Low 1.0-4.3 [facility] Comment on above: Performed By: #### HEMDF, LA CT3, BNP3, CMP3, LIPA4, TROPN, PT #### [place] [address] [place] [address] Lymphocytes/100 WBC (Bld) 6.0 % Low 20.0-40.0 [facility] Comment on above: Performed By: #### HEMDF, LA CT3, BNP3, CMP3, LIPA4, TROPN, PT #### [facility] [address] [place] [address] MCH (RBC) [Entitic mass] 35.0 pg High 26.0-34.0 [facility] Comment on above: Performed By: #### HEMDF, LA CT3, BNP3, CMP3, LIPA4, TROPN, PT #### [facility] [address] [place] [address] MCHC (RBC) [Mass/Vol] 34.5 % Normal 32.0-36.0 [facility] Comment on above: Performed By: #### HEMDF, LA CT3, BNP3, CMP3, LIPA4, TROPN, PT #### [facility] [address] [place] [address] MCV (RBC) [Entitic vol] 101.5 fL High 80.0-98.0 [facility] Comment on above: Performed By: #### HEMDF, LA CT3, BNP3, CMP3, LIPA4, TROPN, PT #### [place] [address] [place] [address] Monocytes (Bld) [#/Vol] 0.8 10*3/uL Normal 0.0-0.8 [facility] Comment on above: Performed By: #### HEMDF, LA CT3, BNP3, CMP3, LIPA4, TROPN, PT #### [place] [address] [place] [address] Monocytes/100 WBC (Bld) 11.4 % High 2.0-10.0 [facility] Comment on above: Performed By: #### HEMDF, LA CT3, BNP3, CMP3, LIPA4, TROPN, PT #### [facility] [address] [place] [address] Platelet mean volume (Bld) [Entitic vol] 9.4 fL Normal 7.4-10.4 [facility] Comment on above: Performed By: #### HEMDF, LA CT3, BNP3, CMP3, LIPA4, TROPN, PT #### [facility] [address] [place] [address] Platelets (Bld) [#/Vol] 100 10*3/uL Low 140-440 [facility] Comment on above: Performed By: #### HEMDF, LA CT3, BNP3, CMP3, LIPA4, TROPN, PT #### [facility] [address] [place] [address] RBC (Bld) [#/Vol] 2.95 10*6/uL Low 4.40-5.90 [facility] Comment on above: Performed By: #### HEMDF, LA CT3, BNP3, CMP3, LIPA4, TROPN, PT #### [facility] [address] [place] [address] WBC (Bld) [#/Vol] 7.0 10*3/uL Normal 3.6-10.7 [facility] Comment on above: Performed By: #### HEMDF, LA CT3, BNP3, CMP3, LIPA4, TROPN, PT #### [facility] [address] [place] [address] Hepatic Function on 12-07-2019 Albumin [Mass/Vol] 3.2 g/dL Low 3.5-5.0 [facility] Comment on above: Performed By: #### HEMDF, LA CT3, BNP3, CMP3, LIPA4, TROPN, PT #### [facility] [address] [place] [address] ALP [Catalytic activity/Vol] 93 U/L Normal 38-126 [facility] Comment on above: Performed By: #### HEMDF, LA CT3, BNP3, CMP3, LIPA4, TROPN, PT #### [facility] [address] [place] [address] ALT [Catalytic activity/Vol] 85 U/L High 0-49 [facility] Comment on above: Result Comment: The ALT test is performed by an updated assay method. Please note that the referen ce intervals have been changed and are now sex spec ific. Performed By: #### HEMDF, LA CT3, BNP3, CMP3, LIPA4, TROPN, PT #### [facility] [address] [place] [address] AST [Catalytic activity/Vol] 110 U/L High 15-46 [facility] Comment on above: Performed By: #### HEMDF, LA CT3, BNP3, CMP3, LIPA4, TROPN, PT #### [facility] [address] [place] [address] Bilirubin [Mass/Vol] 1.2 mg/dL Normal 0.2-1.3 [facility] Comment on above: Performed By: #### HEMDF, LA CT3, BNP3, CMP3, LIPA4, TROPN, PT #### [facility] [address] [place] [address] Bilirubin.direct [Mass/Vol] 0.0 mg/dL Normal 0.0-0.3 [facility] Comment on above: Performed By: #### HEMDF, LA CT3, BNP3, CMP3, LIPA4, TROPN, PT #### [facility] [address] [place] [address] Protein [Mass/Vol] 5.8 g/dL Low 6.3-8.2 [facility] Comment on above: Performed By: #### HEMDF, LA CT3, BNP3, CMP3, LIPA4, TROPN, PT #### [facility] [address] [place] [address] Hepatic Function Panel on 12-07-2019 Albumin [Mass/Vol] 3.2 g/dL Low 3.5 - 5 g/dL [place], [place] ALP [Catalytic activity/Vol] 93 U/L 38 - 126 U/L [place] ALT [Catalytic activity/Vol] 85 U/L High 0 - 49 U/L [place] Comment on above: The ALT test is performed by an updated assay method. Please note that the referen ce intervals have been changed and are now sex spec ific. AST [Catalytic activity/Vol] 110 U/L High 15 - 46 U/L [place] Bilirubin Ql (U) 1.2 mg/dL 0.2 - 1.3 mg/dL [place] Bilirubin.direct [Mass/Vol] 0.0 mg/dL 0 - 0.3 mg/dL [place] Protein [Mass/Vol] 5.8 g/dL Low 6.3 - 8.2 g/dL [place], [place] Lipase on 12-07-2019 Lipase [Catalytic activity/Vol] 937 U/L High 23 - 300 U/L [place] Lipase [Catalytic activity/Vol] 937 U/L High 23-300 [facility] Comment on above: Performed By: #### HEMDF, LA CT3, BNP3, CMP3, LIPA4, TROPN, PT #### [facility] [address] [place] [address] Other on 12-07-2019 Interpretation and review of Abnormal [place] laboratory results Interpretation and review of Abnormal [place] laboratory results Interpretation and review of Abnormal [place] laboratory results Test Performed by [facility], [address], [place], [place] [address] Test Performed by [facility], [address], [place] [address] Test Performed by [facility], [address], [place], [place] [address] POCT Glucose on 11-18 Glucose [Mass/Vol] 101 mg/dL High 70 - 100 mg/dL [place], [place] Comment on above: Test performed by glucose me ter. Results may be 10%-15% lower than serum/plasma values. ( CLIA ID [id number]) Glucose [Mass/Vol] 108 mg/dL High 70 - 100 mg/dL [place] Comment on above: Test performed by glucose me ter. Results may be 10%-15% lower than serum/plasma values. ( CLIA ID [id number]) Glucose [Mass/Vol] 166 mg/dL High 70 - 100 mg/dL [place], [place] Comment on above: Test performed by glucose me ter. Results may be 10%-15% lower than serum/plasma values. ( CLIA ID [id number]) Glucose [Mass/Vol] 199 mg/dL High 70 - 100 mg/dL [place] Comment on above: Test performed by glucose me ter. Results may be 10%-15% lower than serum/plasma values. ( CLIA ID [id number]) Glucose [Mass/Vol] 152 mg/dL High 70 - 100 mg/dL [place] Comment on above: Test performed by glucose me ter. Results may be 10%-15% lower than serum/plasma values. ( CLIA ID [id number]) Glucose [Mass/Vol] 146 mg/dL High 70 - 100 mg/dL [place], [place] Comment on above: Test performed by glucose me ter. Results may be 10%-15% lower than serum/plasma values. ( CLIA ID [id number]) Glucose [Mass/Vol] 124 mg/dL High 70 - 100 mg/dL [place], [place] Comment on above: Test performed by glucose me ter. Results may be 10%-15% lower than serum/plasma values. ( CLIA ID [id number]) Glucose [Mass/Vol] 221 mg/dL High 70 - 100 mg/dL [place], [place] Comment on above: Test performed by glucose me ter. Results may be 10%-15% lower than serum/plasma values. ( CLIA ID [id number]) Interpretation and review of Abnormal [place] laboratory results Interpretation and review of Abnormal [place] laboratory results Interpretation and review of Abnormal [place] laboratory results Test Performed by [facility], [address] [place] [address] Test Performed by [facility], [address] [place] [address] Test Performed by [facility], [address] [place], [place] [address] CBC on 12-06-2019 Erythrocyte distribution 14.6 % High 11.5 - 14.5 % [place], [place] width (RBC) [Ratio] Hematocrit (Bld) [Volume 31.2 % Low 40 - 52 % [place], [place] fraction] Hemoglobin (Bld) [Mass/Vol] 10.6 g/dL Low 13 - 18 g/dL [place] MCH (RBC) [Entitic mass] 34.8 pg High 26 - 34 pg [place] MCHC (RBC) [Mass/Vol] 33.9 % 32 - 36 % [place] MCV (RBC) [Entitic vol] 102.7 fL High 80 - 98 fL [place], [place] Platelet mean volume (Bld) 10.0 fL 7.4 - 10.4 fL [place] [Entitic vol] Platelets (Bld) [#/Vol] 88 10*3/uL Low 140 - 440 10*3/uL [place] RBC (Bld) [#/Vol] 3.04 10*6/uL Low 4.4 - 5.9 10*6/uL [place] WBC (Bld) [#/Vol] 7.2 10*3/uL 3.6 - 10.7 10*3/uL [place], [place] Comp Panel with Mg Reflex on 12-06-2019 Albumin [Mass/Vol] 3.5 g/dL Normal 3.5-5.0 [facility] Comment on above: Performed By: #### HEMDF, LA CT3, BNP3, CMP3, LIPA4, TROPN, PT #### [facility] [address] [place] [address] ALP [Catalytic activity/Vol] 98 U/L Normal 38-126 [facility] Comment on above: Performed By: #### HEMDF, LA CT3, BNP3, CMP3, LIPA4, TROPN, PT #### [facility] [address] [place] [address] ALT [Catalytic activity/Vol] 97 U/L High 0-49 [facility] Comment on above: Result Comment: The ALT test is performed by an updated assay method. Please note that the referen ce intervals have been changed and are now sex spec ific. Performed By: #### HEMDF, LA CT3, BNP3, CMP3, LIPA4, TROPN, PT #### [facility] [address] [place] [address] Anion gap [Moles/Vol] 13 Normal [facility] Comment on above: Performed By: #### HEMDF, LA CT3, BNP3, CMP3, LIPA4, TROPN, PT #### [facility] [address] [place] [address] AST [Catalytic activity/Vol] 156 U/L High 15-46 [facility] Comment on above: Performed By: #### HEMDF, LA CT3, BNP3, CMP3, LIPA4, TROPN, PT #### [facility] [address] [place] [address] Bilirubin [Mass/Vol] 1.4 mg/dL High 0.2-1.3 [facility] Comment on above: Performed By: #### HEMDF, LA CT3, BNP3, CMP3, LIPA4, TROPN, PT #### [facility] [address] [place] [address] Calcium [Mass/Vol] 8.5 mg/dL Normal 8.4-10.4 [facility] Comment on above: Performed By: #### HEMDF, LA CT3, BNP3, CMP3, LIPA4, TROPN, PT #### [facility] [address] [place] [address] Chloride [Moles/Vol] 104 mmol/L Normal 98-107 [facility] Comment on above: Performed By: #### HEMDF, LA CT3, BNP3, CMP3, LIPA4, TROPN, PT #### [facility] [address] [place] [address] CO2 [Moles/Vol] 18 mmol/L Low 22-30 [facility] Comment on above: Performed By: #### HEMDF, LA CT3, BNP3, CMP3, LIPA4, TROPN, PT #### [facility] [address] [place] [address] Creatinine [Mass/Vol] 0.88 mg/dL Normal 0.52-1.25 [facility] Comment on above: Performed By: #### HEMDF, LA CT3, BNP3, CMP3, LIPA4, TROPN, PT #### [facility] [address] [place] [address] GFR/1.73 sq M predicted among blacks mL/min/{1.73_m2} Normal >60 [facility] MDRD (S/P/Bld) [Vol rate/Area] Comment on above: Performed By: #### HEMDF, LA CT3, BNP3, CMP3, LIPA4, TROPN, PT #### [facility] [address] [place] [address] GFR/1.73 sq M predicted among 85.7 mL/min/{1.73_m2} Normal >6 0 [facility] non-blacks MDRD (S/P/Bld) [Vol rate/Area] Comment on above: Result Comment: KDIGO guidel beverly provide the following GFR categories: Stage GFR(ml/min/1.73 m2) Te rosaline G1 >=90 Normal or high G2 60-89 Mildly decreased* G3a 45-59 Mildly to moderate ly decreased G3b 30-44 Moderately to alex rely decreased G4 15-29 Severely decreased G5 <15 Kidney failure *Relative to young adult lev el. In the absence of evidence o f kidney damage, neither GFR category G1 nor G2 fulfill t he criteria for CKD. The CKD-EPI equation is skylar dated in individuals 18 years of age and older. Currently the best equation for estimating glomerular filtra tion rate (GFR) from serum creatinine in children is th e Bedside Jarvis equation. It is less accurate in patie nts with extremes of muscle mass, restriction of dietary protein, ingestion of creatine, extra-renal metabolism of cr eatinine, or treatment with medications that affect chani l tubular creatinine secretion. Performed By: #### HEMDF, LA CT3, BNP3, CMP3, LIPA4, TROPN, PT #### [facility] [address] [place] [address] Glucose [Mass/Vol] 81 mg/dL Normal 70-100 [facility] Comment on above: Performed By: #### HEMDF, LA CT3, BNP3, CMP3, LIPA4, TROPN, PT #### [facility] [address] [place] [address] Potassium [Moles/Vol] 3.8 mmol/L Normal 3.5-5.1 [facility] Comment on above: Performed By: #### HEMDF, LA CT3, BNP3, CMP3, LIPA4, TROPN, PT #### [facility] [address] [place] [address] Protein [Mass/Vol] 6.4 g/dL Normal 6.3-8.2 [facility] Comment on above: Performed By: #### HEMDF, LA CT3, BNP3, CMP3, LIPA4, TROPN, PT #### [facility] [address] [place] [address] Sodium [Moles/Vol] 135 mmol/L Normal 135-145 [facility] Comment on above: Performed By: #### HEMDF, LA CT3, BNP3, CMP3, LIPA4, TROPN, PT #### [facility] [address] [place] [address] Urea nitrogen [Mass/Vol] 20 mg/dL Normal 7-20 [facility] Comment on above: Performed By: #### HEMDF, LA CT3, BNP3, CMP3, LIPA4, TROPN, PT #### [facility] [address] [place] [address] Comprehensive Metabolic Panel w/ Reflex to MG on 12-06-2019 Albumin [Mass/Vol] 3.5 g/dL 3.5 - 5 g/dL [place] ALP [Catalytic activity/Vol] 98 U/L 38 - 126 U/L [place] ALT [Catalytic activity/Vol] 97 U/L High 0 - 49 U/L [place] Comment on above: The ALT test is performed by an updated assay method. Please note that the referen ce intervals have been changed and are now sex spec ific. Anion gap [Moles/Vol] 13 mmol/L [place] AST [Catalytic activity/Vol] 156 U/L High 15 - 46 U/L [place] Bilirubin Ql (U) 1.4 mg/dL High 0.2 - 1.3 mg/dL [place] Calcium [Mass/Vol] 8.5 mg/dL 8.4 - 10.4 mg/dL [place] Chloride [Moles/Vol] 104 mmol/L 98 - 107 mmol/L [place] CO2 [Moles/Vol] 18 mmol/L Low 22 - 30 mmol/L [place], [place] Creatinine [Mass/Vol] 0.88 mg/dL 0.52 - 1.25 mg/dL [place], [place] EGFR IF NonAfrican [place] 85.7 mL/min >60 [place] Comment on above: KDIGO guidelines provide the following GFR categories: Stage GFR(ml/min/1.73 m2) Terms G1 >=90 Normal or h igh G2 60-89 Mildly decr eased* G3a 45-59 Mildly to moderately decreased G3b 30-44 Moderately to severely decreased G4 15-29 Severely de creased G5 <15 Kidne y failure *Relative to young adult lev el. In the absence of evidence o f kidney damage, neither GFR category G1 nor G2 fulfill t he criteria for CKD. The CKD-EPI equation is skylar dated in individuals 18 years of age and older. Currently the best equation for estimating glomerular filtra tion rate (GFR) from serum creatinine in children is [facility] Bedside Jarvis equation. It is less accurate in patie nts with extremes of muscle mass, restriction of dietary protein, ingestion of creatine, extra-renal metabolism of cr eatinine, or treatment with medications that affect chani l tubular creatinine secretion. GFR/1.73 sq M predicted mL/min/{1.73_m2} >60 mL/min [place] among blacks MDRD (S/P/Bld) [Vol rate/Area] Glucose [Mass/Vol] 81 mg/dL 70 - 100 mg/dL [place], [place] Potassium [Moles/Vol] 3.8 mmol/L 3.5 - 5.1 mmol/L [place], [place] Protein [Mass/Vol] 6.4 g/dL 6.3 - 8.2 g/dL [place], [place] Sodium [Moles/Vol] 135 mmol/L 135 - 145 mmol/L [place], [place] Urea nitrogen [Mass/Vol] 20 mg/dL 7 - 20 mg/dL [place], [place] Glucose,Bedside on 1 Glucose [Mass/Vol] 87 mg/dL Normal 70-100 [facility] Comment on above: Result Comment: Test perform ed by glucose meter. Results may be 10%-15% lower than serum/plasma values. (C JENNIFER ID [id number]) Performed By: #### HEMDF, LA CT3, BNP3, CMP3, LIPA4, TROPN, PT #### [facility] [address] [place] [address] Glucose [Mass/Vol] 89 mg/dL Normal 70-100 [facility] Comment on above: Result Comment: Test perform ed by glucose meter. Results may be 10%-15% lower than serum/plasma values. (C JENNIFER ID [id number]) Performed By: #### HEMDF, LA CT3, BNP3, CMP3, LIPA4, TROPN, PT #### [facility] [address] [place] [address] Glucose [Mass/Vol] 79 mg/dL Normal 70-100 [facility] Comment on above: Result Comment: Test perform ed by glucose meter. Results may be 10%-15% lower than serum/plasma values. (C JENNIFER ID [id number]) Performed By: #### HEMDF, LA CT3, BNP3, CMP3, LIPA4, TROPN, PT #### [facility] [address] [place] [address] Glucose [Mass/Vol] 89 mg/dL Normal 70-100 [facility] Comment on above: Result Comment: Test perform ed by glucose meter. Results may be 10%-15% lower than serum/plasma values. (C JENNIFER ID [id number]) Performed By: #### HEMDF, LA CT3, BNP3, CMP3, LIPA4, TROPN, PT #### [facility] [address] [place] [address] Glucose [Mass/Vol] 147 mg/dL High 70-100 [facility] Comment on above: Result Comment: Test perform ed by glucose meter. Results may be 10%-15% lower than serum/plasma values. (C JENNIFER ID [id number]) Performed By: #### HEMDF, LA CT3, BNP3, CMP3, LIPA4, TROPN, PT #### [facility] [address] [place] [address] Hemogram on 12-06-19 Erythrocyte distribution width (RBC) 14.6 % High 11.5 -14.5 [facility] [Ratio] Comment on above: Performed By: #### HEMDF, LA CT3, BNP3, CMP3, LIPA4, TROPN, PT #### [facility] [address] [place] [address] Hematocrit (Bld) [Volume fraction] 31.2 % Low 40.0-5 2.0 [facility] Comment on above: Performed By: #### HEMDF, LA CT3, BNP3, CMP3, LIPA4, TROPN, PT #### [facility] [address] [place] [address] Hemoglobin (Bld) [Mass/Vol] 10.6 g/dL Low 13.0-18.0 [facility] Comment on above: Performed By: #### HEMDF, LA CT3, BNP3, CMP3, LIPA4, TROPN, PT #### [facility] [address] [place] [address] MCH (RBC) [Entitic mass] 34.8 pg High 26.0-34.0 [facility] Comment on above: Performed By: #### HEMDF, LA CT3, BNP3, CMP3, LIPA4, TROPN, PT #### [facility] [address] [place] [address] MCHC (RBC) [Mass/Vol] 33.9 % Normal 32.0-36.0 [facility] Comment on above: Performed By: #### HEMDF, LA CT3, BNP3, CMP3, LIPA4, TROPN, PT #### [facility] [address] [place] [address] MCV (RBC) [Entitic vol] 102.7 fL High 80.0-98.0 [facility] Comment on above: Performed By: #### HEMDF, LA CT3, BNP3, CMP3, LIPA4, TROPN, PT #### [facility] [address] [place] [address] Platelet mean volume (Bld) [Entitic vol] 10.0 fL Normal 7.4-10.4 [facility] Comment on above: Performed By: #### HEMDF, LA CT3, BNP3, CMP3, LIPA4, TROPN, PT #### [facility] [address] [place] [address] Platelets (Bld) [#/Vol] 88 10*3/uL Low 140-440 [facility] Comment on above: Performed By: #### HEMDF, LA CT3, BNP3, CMP3, LIPA4, TROPN, PT #### [facility] [address] [place] [address] RBC (Bld) [#/Vol] 3.04 10*6/uL Low 4.40-5.90 [facility] Comment on above: Performed By: #### HEMDF, LA CT3, BNP3, CMP3, LIPA4, TROPN, PT #### [facility] [address] [place] [address] WBC (Bld) [#/Vol] 7.2 10*3/uL Normal 3.6-10.7 [facility] Comment on above: Performed By: #### HEMDF, LA CT3, BNP3, CMP3, LIPA4, TROPN, PT #### [facility] [address] [place] [address] Lipase on 12-06-2019 Lipase [Catalytic activity/Vol] 906 U/L High 23 - 300 U/L [place] Lipase [Catalytic activity/Vol] 906 U/L High 23-300 [facility] Comment on above: Performed By: #### HEMDF, LA CT3, BNP3, CMP3, LIPA4, TROPN, PT #### [facility] [address] [place] [address] Other on 12-06-2019 Interpretation and review of Abnormal [place], [place] laboratory results Test Performed by [facility], [address] [place] [address] POCT Glucose on 11-17 Glucose [Mass/Vol] 87 mg/dL 70 - 100 mg/dL [place], [place] Comment on above: Test performed by glucose me ter. Results may be 10%-15% lower than serum/plasma values. ( CLIA ID [id number]) Glucose [Mass/Vol] 89 mg/dL 70 - 100 mg/dL [place], [place] Comment on above: Test performed by glucose me ter. Results may be 10%-15% lower than serum/plasma values. ( CLIA ID [id number]) Glucose [Mass/Vol] 79 mg/dL 70 - 100 mg/dL [place], [place] Comment on above: Test performed by glucose me ter. Results may be 10%-15% lower than serum/plasma values. ( CLIA ID [id number]) Glucose [Mass/Vol] 89 mg/dL 70 - 100 mg/dL [place], [place] Comment on above: Test performed by glucose me ter. Results may be 10%-15% lower than serum/plasma values. ( CLIA ID [id number]) Glucose [Mass/Vol] 147 mg/dL High 70 - 100 mg/dL [place], [place] Comment on above: Test performed by glucose me ter. Results may be 10%-15% lower than serum/plasma values. ( CLIA ID [id number]) Interpretation and review of Abnormal [place], [place] laboratory results Test Performed by [facility], [address] [place], [place] [address] Test Performed by [facility], [address], [place] [address] Test Performed by [facility], [address], [place] [address] Test Performed by [facility], [address] [place] [address] Test Performed by [facility], [address] [place] [address] Troponin on 12-05- 20 Troponin I.cardiac [Mass/Vol] 0.219 ng/mL High 0 - 0.034 n g/mL [place], [place] Comment on above: . Troponin I on 2019 Troponin I.cardiac [Mass/Vol] 0.219 ng/mL High 0.000-0.034 [facility] Comment on above: Result Comment: . Performed By: #### HEMDF, LA CT3, BNP3, CMP3, LIPA4, TROPN, PT #### [facility] [address] [place] [address] Brain Natriuretic Peptide on 12-05-2019 Natriuretic peptide B (Bld) 1733 pg/mL High 0 - 125 pg/[facility] [[facility]/Vol] CR Chest Portable on 12-05-2019 CR Chest Portable Patient Name: JAGRUTI RAMIREZ Normal [facility]iology Exam Date/Time 12/04/2019 23:56:02 EDT Exam CR Chest Portable Ordering Physician ABDIFATAH RAMSAY Accession Number [id number] CPT4 Codes 84914 () Reason For Exam fatigue, nausea, eval for infectious etiology Report PORTABLE CHEST CLINICAL INDICATION: Fatigue and nausea TECHNIQUE: Portable AP COMPARISON: None FINDINGS: Exam quality: The study is limited due to rotation. The heart and mediastinum are normal. The lungs are cl ear. Costophrenic angles are sharp. Degenerative change of the thoracic spine i s noted. IMPRESSION: No acute abnormality Report Dictated on Workstation: [id number] Final Dictating Physician: MD ELI JEFFREY Signed Date and Time: 12/05/2019 0:22 am Signed by: MD ELI JEFFREY Transcribed Date and Time: 12/05/2019 0:23 CT Abdomen Pelvis Wo Contrast on 12-05-2019 Felix, [facility] Incoming Radiology Results From [facility] - 2:19 AM EDT [facility] Name: JAGRUTI RAMIREZ ---CT--- Exam Date/Time 12/05/2019 02:09:[address] Abdomen/Pelvis (No PO, No IV) Ordering Physician ABDIFATAH RAMSAY Accession Number [id number] CPT4 Codes 65859 (CT Abdomen/Pelvis (No PO, No IV)) Reason For Exam elevated lipase, nasuea, vomit Report CT ABDOMEN AND PELVIS WITHOUT CONTRAST CLINICAL INDICATION: Elevated lipase with nausea and v omiting TECHNIQUE: Transaxial sequence through the abdomen and pelvis without contrast with 3 mm reconstruction. Sagittal coronal reconstruct ion images included. Dose reduction was employed with automated exposure control . COMPARISON: None. FINDINGS: Exam quality: This examination is limited for the eval uation of solid organs and vascular structures due to the lack of intravenous contrast and limited for evaluation of the gastrointestinal tract due to lack o f oral contrast. Chest base: Normal. Liver: Generalized marked diminished attenuation as co mpared to the spleen, corresponding to severe diffuse fatty infiltration. No identifiable lesion. Biliary tree: Normal caliber. Two calcified stones are noted each measuring up to 0.5 cm. There is no wall thickening with surroundin g inflammatory change Spleen: Normal. Adrenals: Normal. Pancreas: Unremarkable. Kidneys: No contour abnormality or focal renal lesion. Renal collecting systems: No calculi, hydronephrosis o r ureteral dilatation. Free fluid: None. Retroperitoneal/mesenteric lymphadenopathy: None. Aorta: Normal caliber with atherosclerotic calcificati on. Bowel: A ventral hernia is noted in the right lower qu adrant containing nondilated small bowel loop. The hernia demonstrates a caliber of up to 7 cm. There is no other bowel dilatation or free air. Retain ed feces are noted. Abdominal wall: Normal. Bladder: No calculi or filling defects. Pelvic organs/viscera: No mass identified. Pelvic lymphadenopathy: None. Osseous structures: Normal. IMPRESSION: 1. Ventral hernia containing nondilated small bowel lo op in the right lower quadrant 2. Cholelithiasis 3. Fatty liver. Report Dictated on Workstation: [facility] --- Final --- Dictating Physician: MD ELI JEFFREY Signed Date and Time: 12/05/2019 2:18 am Signed by: MD ELI JEFFREY Transcribed Date and Time: 12/05/2019 2:19 Patient Name: JAGRUTI RAMIREZ FIN: [place], [place] [id number] ---CT--- Exam Date/Time 12/05/2019 02:09:[address] Abdomen/Pelvis (No PO, No IV) Ordering Physician ABDIFATAH RAMSAY Accession Number [id number] CPT4 Codes 92294 (CT Abdomen/Pelvis (No PO, No IV)) Reason For Exam elevate d lipase, nasuea, vomit Report CT ABDOMEN AND PELVIS WIT HOUT CONTRAST CLINICAL INDICATION: Elevated lipase with [place] and vomiting TECHNIQUE: Transaxial sequence through th e abdomen and pelvis without contrast with 3 mm reconstruction. Sagittal coronal reconstruction image s included. Dose reduction was employed with automated exposure control. COMPARISON: None. FINDINGS: Exam quality: This examination is limited for the evaluati on of solid organs and vascular structures due to the lac k of intravenous contrast and limited for evaluation of the gastrointestinal tract due to lack of oral contrast. Chest base: Normal. Liver: Generalized marked diminish ed attenuation as compared to the spleen, corresponding t o severe diffuse fatty infiltration. No identifiable les ion. Biliary tree: Normal caliber. Two calcified stones are noted each measuring up to 0.5 cm. There is no wall thickening with surrounding inflammatory change Spleen : Normal. Adrenals: Normal. Pancreas: Unremarkable . Kidneys: No contour abnormality or focal renal lesion. Renal collecting systems: No calculi, hydronephrosis o r ureteral dilatation. Free fluid: None. Retroperitoneal/mesenteric lymphadenopathy: None. Ao rta: Normal caliber with atherosclerotic calcification. Slaughters el: A ventral hernia is noted in the right lower quadrant containing nondilated small bowel loop. The hernia demonstrates a caliber of up to 7 cm. There is no othe r bowel dilatation or free air. Retained feces are noted . Abdominal wall: Normal. Bladder: No calculi or filling defects. Pelvic organs/viscera: No mass identified. Pelvic lymphadenopathy: None. Osseous structures: Nor mal. IMPRESSION: 1. Ventral hernia containing nondilated small bowel loop in the right lower quadrant 2. Cholelithiasis 3. Fatty liver. Report Dictated on Workstation: [facility] --- Final --- Dictating Physician: MD ELI JEFFREY Signed Date and Time: 12/05/2019 2:18 am Signed by: MD ELI JEFFREY Transcribed Date and Time: 12/05/2019 2:19 CT Abdomen/Pelvis w/o Contrast on 12-05-2019 CT Abdomen/Pelvis w/o Patient Name: JAGRUTI RAMIREZ [facility] [employer] Contrast System CT Exam Date/Time 12/05/2019 02:09:[address] Abdomen/Pelvis (No PO, No IV) Ordering Physician [id number] TREVIÑO Accession Number [id number] CPT4 Codes 21124 (CT Abdomen/Pelvis (No PO, No IV)) Reason For Exam elevated lipase, nasuea, vomit Report CT ABDOMEN AND PELVIS WITHOUT CONTRAST CLINICAL INDICATION: Elevated lipase with nausea and v omiting TECHNIQUE: Transaxial sequence through the abdomen and pelvis without contrast with 3 mm reconstruction. Sagittal coronal reconstruct ion images included. Dose reduction was employed with automated exposure control . COMPARISON: None. FINDINGS: Exam quality: This examination is limited for the eval uation of solid organs and vascular structures due to the lack of intravenous contrast and limited for evaluation of the gastrointestinal tract due to lack o f oral contrast. Chest base: Normal. Liver: Generalized marked diminished attenuation as co mpared to the spleen, corresponding to severe diffuse fatty infiltration. No identifiable lesion. Biliary tree: Normal caliber. Two calcified stones are noted each measuring up to 0.5 cm. There is no wall thickening with surroundin g inflammatory change Spleen: Normal. Adrenals: Normal. Pancreas: Unremarkable. Kidneys: No contour abnormality or focal renal lesion. Renal collecting systems: No calculi, hydronephrosis o r ureteral dilatation. Free fluid: None. Retroperitoneal/mesenteric lymphadenopathy: None. Aorta: Normal caliber with atherosclerotic calcificati on. Bowel: A ventral hernia is noted in the right lower qu adrant containing nondilated small bowel loop. The hernia demonstrates a caliber of up to 7 cm. There is no other bowel dilatation or free air. Retain ed feces are noted. Abdominal wall: Normal. Bladder: No calculi or filling defects. Pelvic organs/viscera: No mass identified. Pelvic lymphadenopathy: None. Osseous structures: Normal. IMPRESSION: 1. Ventral hernia containing nondilated small bowel lo op in the right lower quadrant 2. Cholelithiasis 3. Fatty liver. Report Dictated on Workstation: [employer] Final Dictating Physician: MD ELI JEFFREY Signed Date and Time: 12/05/2019 2:18 am Signed by: MD ELI JEFFREY Transcribed Date and Time: 12/05/2019 2:19 Comp Metabolic Panel on 10-18-2020 Albumin [Mass/Vol] 4.8 g/dL Normal 3.5-5.0 [facility] Comment on above: Order Comment: Slight Hemoly sis Performed By: #### HEMDF, LA CT3, BNP3, CMP3, LIPA4, TROPN, PT #### [facility] [address] [place] [address] ALP [Catalytic activity/Vol] 113 U/L Normal 38-126 [facility] Comment on above: Order Comment: Slight Hemoly sis Performed By: #### HEMDF, LA CT3, BNP3, CMP3, LIPA4, TROPN, PT #### [facility] [address] [place] [address] ALT [Catalytic activity/Vol] 114 U/L High 0-49 [facility] Comment on above: Order Comment: Slight Hemoly sis Result Comment: The ALT test is performed by an updated assay method. Please note that the referen ce intervals have been changed and are now sex spec ific. Performed By: #### HEMDF, LA CT3, BNP3, CMP3, LIPA4, TROPN, PT #### [facility] [address] [place] [address] Anion gap [Moles/Vol] 16 Normal [facility] Comment on above: Order Comment: Slight Hemoly sis Performed By: #### HEMDF, LA CT3, BNP3, CMP3, LIPA4, TROPN, PT #### [facility] [address] [place] [address] AST [Catalytic activity/Vol] 144 U/L High 15-46 [facility] Comment on above: Order Comment: Slight Hemoly sis Performed By: #### HEMDF, LA CT3, BNP3, CMP3, LIPA4, TROPN, PT #### [facility] [address] [place] [address] Bilirubin [Mass/Vol] 2.0 mg/dL High 0.2-1.3 [facility] Comment on above: Order Comment: Slight Hemoly sis Performed By: #### HEMDF, LA CT3, BNP3, CMP3, LIPA4, TROPN, PT #### [facility] [address] [place] [address] Calcium [Mass/Vol] 10.1 mg/dL Normal 8.4-10.4 [facility] Comment on above: Order Comment: Slight Hemoly sis Performed By: #### HEMDF, LA CT3, BNP3, CMP3, LIPA4, TROPN, PT #### [facility] [address] [place] [address] Chloride [Moles/Vol] 93 mmol/L Low 98-107 [facility] Comment on above: Order Comment: Slight Hemoly sis Performed By: #### HEMDF, LA CT3, BNP3, CMP3, LIPA4, TROPN, PT #### [facility] [address] [place] [address] CO2 [Moles/Vol] 21 mmol/L Low 22-30 [facility] Comment on above: Order Comment: Slight Hemoly sis Performed By: #### HEMDF, LA CT3, BNP3, CMP3, LIPA4, TROPN, PT #### [facility] [address] [place] [address] Creatinine [Mass/Vol] 1.88 mg/dL High 0.52-1.25 [facility] Comment on above: Order Comment: Slight Hemoly sis Performed By: #### HEMDF, LA CT3, BNP3, CMP3, LIPA4, TROPN, PT #### [facility] [address] [place] [address] GFR/1.73 sq M predicted among 40.4 mL/min/{1.73_m2} Abnormal >6 0 [facility] blacks MDRD (S/P/Bld) [Vol rate/Area] Comment on above: Order Comment: Slight Hemoly sis Performed By: #### HEMDF, LA CT3, BNP3, CMP3, LIPA4, TROPN, PT #### [facility] [address] [place] [address] GFR/1.73 sq M predicted among 34.8 mL/min/{1.73_m2} Abnormal >6 0 [facility] non-blacks MDRD (S/P/Bld) [Vol rate/Area] Comment on above: Order Comment: Slight Hemoly sis Result Comment: KDIGO guidel beverly provide the following GFR categories: Stage GFR(ml/min/1.73 m2) Te rosaline G1 >=90 Normal or high G2 60-89 Mildly decreased* G3a 45-59 Mildly to moderate ly decreased G3b 30-44 Moderately to alex rely decreased G4 15-29 Severely decreased G5 <15 Kidney failure *Relative to young adult lisandra jimenez. In the absence of evidence o f kidney damage, neither GFR category G1 nor G2 fulfill t he criteria for CKD. The CKD-EPI equation is skylar dated in individuals 18 years of age and older. Currently the best equation for estimating glomerular filtra tion rate (GFR) from serum creatinine in children is e Bedside Jarvis equation. It is less accurate in patie nts with extremes of muscle mass, restriction of dietary protein, ingestion of creatine, extra-renal metabolism of cr eatinine, or treatment with medications that affect chani l tubular creatinine secretion. Performed By: #### HEMDF, LA CT3, BNP3, CMP3, LIPA4, TROPN, PT #### [facility] [employer] [facility] [address] [place] [address] Glucose [Mass/Vol] 130 mg/dL High 70-100 [facility] Comment on above: Order Comment: Slight Hemoly sis Performed By: #### HEMDF, LA CT3, BNP3, CMP3, LIPA4, TROPN, PT #### [facility] [employer] [facility] [address] [place] [address] Potassium [Moles/Vol] 5.9 mmol/L High 3.5-5.1 [facility] Comment on above: Order Comment: Slight Hemoly sis Performed By: #### HEMDF, LA CT3, BNP3, CMP3, LIPA4, TROPN, PT #### [facility] [employer] [facility] [address] [place] [address] Protein [Mass/Vol] 8.4 g/dL High 6.3-8.2 [facility] Comment on above: Order Comment: Slight Hemoly sis Performed By: #### HEMDF, LA CT3, BNP3, CMP3, LIPA4, TROPN, PT #### [facility] [employer] [facility] [address] [place] [address] Sodium [Moles/Vol] 130 mmol/L Low 135-145 [facility] Comment on above: Order Comment: Slight Hemoly sis Performed By: #### HEMDF, LA CT3, BNP3, CMP3, LIPA4, TROPN, PT #### [facility] [address] [place] [address] Urea nitrogen [Mass/Vol] 34 mg/dL High 7-20 [facility] Comment on above: Order Comment: Slight Hemoly sis Performed By: #### HEMDF, LA CT3, BNP3, CMP3, LIPA4, TROPN, PT #### [facility] [address] [place] [address] Comp Panel with Mg Reflex on 12-05-2019 Albumin [Mass/Vol] 3.8 g/dL Normal 3.5-5.0 [facility] Comment on above: Performed By: #### HEMDF, LA CT3, BNP3, CMP3, LIPA4, TROPN, PT #### [facility] [address] [place] [address] ALP [Catalytic activity/Vol] 106 U/L Normal 38-126 [facility] Comment on above: Performed By: #### HEMDF, LA CT3, BNP3, CMP3, LIPA4, TROPN, PT #### [facility] [address] [place] [address] ALT [Catalytic activity/Vol] 96 U/L High 0-49 [facility] Comment on above: Result Comment: The ALT test is performed by an updated assay method. Please note that the referen ce intervals have been changed and are now sex spec ific. Performed By: #### HEMDF, LA CT3, BNP3, CMP3, LIPA4, TROPN, PT #### [facility] [address] [place] [address] Anion gap [Moles/Vol] 12 Normal [facility] Comment on above: Performed By: #### HEMDF, LA CT3, BNP3, CMP3, LIPA4, TROPN, PT #### [facility] [address] [place] [address] AST [Catalytic activity/Vol] 135 U/L High 15-46 [facility] Comment on above: Performed By: #### HEMDF, LA CT3, BNP3, CMP3, LIPA4, TROPN, PT #### [facility] [address] [place] [address] Bilirubin [Mass/Vol] 1.5 mg/dL High 0.2-1.3 [facility] Comment on above: Performed By: #### HEMDF, LA CT3, BNP3, CMP3, LIPA4, TROPN, PT #### [facility] [address] [place] [address] Calcium [Mass/Vol] 9.2 mg/dL Normal 8.4-10.4 [facility] Comment on above: Performed By: #### HEMDF, LA CT3, BNP3, CMP3, LIPA4, TROPN, PT #### [facility] [address] [place] [address] Chloride [Moles/Vol] 100 mmol/L Normal 98-107 [facility] Comment on above: Performed By: #### HEMDF, LA CT3, BNP3, CMP3, LIPA4, TROPN, PT #### [facility] [address] [place] [address] CO2 [Moles/Vol] 22 mmol/L Normal 22-30 [facility] Comment on above: Performed By: #### HEMDF, LA CT3, BNP3, CMP3, LIPA4, TROPN, PT #### [facility] [address] [place] [address] Creatinine [Mass/Vol] 1.48 mg/dL High 0.52-1.25 [facility] Comment on above: Performed By: #### HEMDF, LA CT3, BNP3, CMP3, LIPA4, TROPN, PT #### [facility] [address] [place] [address] GFR/1.73 sq M predicted among 53.9 mL/min/{1.73_m2} Abnormal >6 0 [facility] blacks MDRD (S/P/Bld) [Vol rate/Area] Comment on above: Performed By: #### HEMDF, LA CT3, BNP3, CMP3, LIPA4, TROPN, PT #### [facility] [address] [place] [address] GFR/1.73 sq M predicted among 46.5 mL/min/{1.73_m2} Abnormal >6 0 [facility] non-blacks MDRD (S/P/Bld) [Vol rate/Area] Comment on above: Result Comment: KDIGO guidel beverly provide the following GFR categories: Stage GFR(ml/min/1.73 m2) Te rosaline G1 >=90 Normal or high G2 60-89 Mildly decreased* G3a 45-59 Mildly to moderate ly decreased G3b 30-44 Moderately to alex rely decreased G4 15-29 Severely decreased G5 <15 Kidney failure *Relative to young adult lev el. In the absence of evidence o f kidney damage, neither GFR category G1 nor G2 fulfill t he criteria for CKD. The CKD-EPI equation is skylar dated in individuals 18 years of age and older. Currently the best equation for estimating glomerular filtra tion rate (GFR) from serum creatinine in children is th e Bedside Jarvis equation. It is less accurate in patie nts with extremes of muscle mass, restriction of dietary protein, ingestion of creatine, extra-renal metabolism of cr eatinine, or treatment with medications that affect chani l tubular creatinine secretion. Performed By: #### HEMDF, LA CT3, BNP3, CMP3, LIPA4, TROPN, PT #### [facility] [address] [place] [address] Glucose [Mass/Vol] 98 mg/dL Normal 70-100 [facility] Comment on above: Performed By: #### HEMDF, LA CT3, BNP3, CMP3, LIPA4, TROPN, PT #### [facility] [address] [place] [address] Potassium [Moles/Vol] 4.4 mmol/L Normal 3.5-5.1 [facility] Comment on above: Performed By: #### HEMDF, LA CT3, BNP3, CMP3, LIPA4, TROPN, PT #### [facility] [address] [place] [address] Protein [Mass/Vol] 6.9 g/dL Normal 6.3-8.2 [facility] Comment on above: Performed By: #### HEMDF, LA CT3, BNP3, CMP3, LIPA4, TROPN, PT #### [facility] [address] [place] [address] Sodium [Moles/Vol] 134 mmol/L Low 135-145 [facility] Comment on above: Performed By: #### HEMDF, LA CT3, BNP3, CMP3, LIPA4, TROPN, PT #### [facility] [address] [place] [id number] Urea nitrogen [Mass/Vol] 31 mg/dL High 7-20 [facility] Comment on above: Performed By: #### HEMDF, LA CT3, BNP3, CMP3, LIPA4, TROPN, PT #### [facility] [address] [place] [address] Complete Urinalysis on 12-05-2019 Appearance (U) Clear Normal Clear [facility] Comment on above: Result Comment: . Performed By: #### HEMDF, LA CT3, BNP3, CMP3, LIPA4, TROPN, PT #### [facility] [address] [place] [address] Bilirubin,Urine Negative Normal Negative [facility] Comment on above: Result Comment: . Performed By: #### HEMDF, LA CT3, BNP3, CMP3, LIPA4, TROPN, PT #### [facility] [address] [place] [address] Cast, Hyaline 51 - 100 Abnormal Negative [facility] Comment on above: Result Comment: . Performed By: #### HEMDF, LA CT3, BNP3, CMP3, LIPA4, TROPN, PT #### [facility] [address] [place] [address] Color (U) Yellow Normal Lt. Yellow [facility] Comment on above: Result Comment: . Performed By: #### HEMDF, LA CT3, BNP3, CMP3, LIPA4, TROPN, PT #### [facility] [address] [place] [address] Glucose Ql (U) Normal Normal Normal (<70) [facility] Comment on above: Result Comment: . Performed By: #### HEMDF, LA CT3, BNP3, CMP3, LIPA4, TROPN, PT #### [facility] [address] [place] [address] Ketone,Urine 20 mg/dL Abnormal Negative [facility] stem Comment on above: Result Comment: . Performed By: #### HEMDF, LA CT3, BNP3, CMP3, LIPA4, TROPN, PT #### [facility] [address] [place] [address] Leukocytes,Urine Negative Normal Negative [facility] Comment on above: Result Comment: . Performed By: #### HEMDF, LA CT3, BNP3, CMP3, LIPA4, TROPN, PT #### [facility] [address] [place] [address] Mucous Threads Few Normal Negative [facility] Comment on above: Result Comment: . Performed By: #### HEMDF, LA CT3, BNP3, CMP3, LIPA4, TROPN, PT #### [facility] [address] [place] [address] Nitrites,Urine Negative Normal Negative [facility] Comment on above: Result Comment: . Performed By: #### HEMDF, LA CT3, BNP3, CMP3, LIPA4, TROPN, PT #### [facility] [address] [place] [address] Occult Blood,Urine 0.03 mg/dL Abnormal Negative [facility] Comment on above: Result Comment: . Performed By: #### HEMDF, LA CT3, BNP3, CMP3, LIPA4, TROPN, PT #### [facility] [address] [place] [address] pH (U) 5.5 Normal 5.0-8.0 [facility] stem Comment on above: Result Comment: . Performed By: #### HEMDF, LA CT3, BNP3, CMP3, LIPA4, TROPN, PT #### [facility] [address] [place] [address] Protein (U) [Mass/Vol] 20 mg/dL Abnormal Negative [facility] Comment on above: Result Comment: . Performed By: #### HEMDF, LA CT3, BNP3, CMP3, LIPA4, TROPN, PT #### [facility] [address] [place] [address] RBC LM.HPF (Urine sed) [#/Area] 0 - 2 Normal 0-2 [facility] Comment on above: Result Comment: . Performed By: #### HEMDF, LA CT3, BNP3, CMP3, LIPA4, TROPN, PT #### [facility] [address] [facility] [place] [address] Specific [place],Urine 1.015 Normal 1.005 - 1.030 [facility] Comment on above: Result Comment: . Performed By: #### HEMDF, LA CT3, BNP3, CMP3, LIPA4, TROPN, PT #### [facility] [address] [facility] [place] [address] Squamous Epithelial 0 - 2 Normal 3-5 [facility] Comment on above: Result Comment: . Performed By: #### HEMDF, LA CT3, BNP3, CMP3, LIPA4, TROPN, PT #### [facility] [address] [place] [address] Urobilinogen,Urine Normal Normal Normal (0-1) [facility] Comment on above: Result Comment: . Performed By: #### HEMDF, LA CT3, BNP3, CMP3, LIPA4, TROPN, PT #### [facility] [address] [facility] [place] [address] WBC LM.HPF (Urine sed) [#/Area] 0 - 2 Normal 0-5 [facility] Comment on above: Result Comment: . Performed By: #### HEMDF, LA CT3, BNP3, CMP3, LIPA4, TROPN, PT #### [facility] [address] [place] [address] Comprehensive Metabolic Panel on 12-05-2019 Albumin [Mass/Vol] 4.8 g/dL 3.5 - 5 g/dL [place], [place] ALP [Catalytic activity/Vol] 113 U/L 38 - 126 U/L [place], [place] ALT [Catalytic activity/Vol] 114 U/L High 0 - 49 U/L [place] Comment on above: The ALT test is performed by an updated assay method. Please note that the referen ce intervals have been changed and are now sex spec ific. Anion gap [Moles/Vol] 16 mmol/L [place] AST [Catalytic 144 U/L High 15 - 46 U/L [place], [place] activity/Vol] Bilirubin Ql (U) 2.0 mg/dL High 0.2 - 1.3 mg/dL [place], [place] Calcium [Mass/Vol] 10.1 mg/dL 8.4 - 10.4 mg/dL [place] Chloride [Moles/Vol] 93 mmol/L Low 98 - 107 mmol/L [place], [place] CO2 [Moles/Vol] 21 mmol/L Low 22 - 30 mmol/L [place], [place] Creatinine [Mass/Vol] 1.88 mg/dL High 0.52 - 1.25 mg/dL [place], [place] EGFR IF NonAfrican 34.8 mL/min Abnormal >60 [place] Comment on above: KDIGO guidelines provide the following GFR categories: Stage GFR(ml/min/1.73 m2) Terms G1 >=90 Normal or h igh G2 60-89 Mildly decr eased* G3a 45-59 Mildly to moderately decreased G3b 30-44 Moderately to severely decreased G4 15-29 Severely de creased G5 <15 Kidne y failure *Relative to young adult lev el. In the absence of evidence o f kidney damage, neither GFR category G1 nor G2 fulfill [facility] criteria for CKD. The CKD-EPI equation is skylar dated in individuals 18 years of age and older. Currently the best equation for estimating glomerular filtra tion rate (GFR) from serum creatinine in children is [facility] Bedside Jarvis equation. It is less accurate in patie nts with extremes of muscle mass, restriction of dietary protein, ingestion of creatine, extra-renal metabolism of cr eatinine, or treatment with medications that affect chani l tubular creatinine secretion. GFR/1.73 sq M 40.4 mL/min/{1.73_m2} Abnormal >60 [facility], predicted among blacks [place] MDRD (S/P/Bld) [Vol rate/Area] Glucose [Mass/Vol] 130 mg/dL High 70 - 100 mg/dL [place], [place] Potassium [Moles/Vol] 5.9 mmol/L High 3.5 - 5.1 [facility], mmol/L [place] Protein [Mass/Vol] 8.4 g/dL High 6.3 - 8.2 g/dL [place], [place] Sodium [Moles/Vol] 130 mmol/L Low 135 - 145 [facility], mmol/L [place] Urea nitrogen 34 mg/dL High 7 - 20 mg/dL [facility], [Mass/Vol] [place] Comprehensive Metabolic Panel w/ Reflex to MG on 12-05-2019 Albumin [Mass/Vol] 3.8 g/dL 3.5 - 5 g/dL [place] ALP [Catalytic activity/Vol] 106 U/L 38 - 126 U/L [place] ALT [Catalytic activity/Vol] 96 U/L High 0 - 49 U/L [place] Comment on above: The ALT test is performed by an updated assay method. Please note that the referen ce intervals have been changed and are now sex spec ific. Anion gap [Moles/Vol] 12 mmol/L [place] AST [Catalytic 135 U/L High 15 - 46 U/L [place] activity/Vol] Bilirubin Ql (U) 1.5 mg/dL High 0.2 - 1.3 mg/dL [place], [place] Calcium [Mass/Vol] 9.2 mg/dL 8.4 - 10.4 mg/dL [place], [place] Chloride [Moles/Vol] 100 mmol/L 98 - 107 mmol/L [place], [place] CO2 [Moles/Vol] 22 mmol/L 22 - 30 mmol/L [place], [place] Creatinine [Mass/Vol] 1.48 mg/dL High 0.52 - 1.25 mg/dL [place], [place] EGFR IF NonAfrican 46.5 mL/min Abnormal >60 [place] Comment on above: KDIGO guidelines provide the following GFR categories: Stage GFR(ml/min/1.73 m2) Terms G1 >=90 Normal or h igh G2 60-89 Mildly decr eased* G3a 45-59 Mildly to moderately decreased G3b 30-44 Moderately to severely decreased G4 15-29 Severely de creased G5 <15 Kidne y failure *Relative to young adult lisandra jimenez. In the absence of evidence o f kidney damage, neither GFR category G1 nor G2 fulfill t he criteria for CKD. The CKD-EPI equation is skylar dated in individuals 18 years of age and older. Currently the best equation for estimating glomerular filtra tion rate (GFR) from serum creatinine in children is e Bedside Jarvis equation. It is less accurate in patie nts with extremes of muscle mass, restriction of dietary protein, ingestion of creatine, extra-renal metabolism of cr eatinine, or treatment with medications that affect chani l tubular creatinine secretion. GFR/1.73 sq M 53.9 mL/min/{1.73_m2} Abnormal >60 [facility], predicted among blacks [place] MDRD (S/P/Bld) [Vol rate/Area] Glucose [Mass/Vol] 98 mg/dL 70 - 100 mg/dL [facility], [place] Potassium [Moles/Vol] 4.4 mmol/L 3.5 - 5.1 [facility] [place], mmol/L [place] Protein [Mass/Vol] 6.9 g/dL 6.3 - 8.2 g/dL [facility], [place] Sodium [Moles/Vol] 134 mmol/L Low 135 - 145 [facility]- [place], mmol/L [place] Urea nitrogen 31 mg/dL High 7 - 20 mg/dL [facility], [Mass/Vol] [place] Drugs of Abuse on Amphetamines, Ur Negative Normal [facility] Comment on above: Performed By: #### HEMDF, LA CT3, BNP3, CMP3, LIPA4, TROPN, PT #### [facility] [address] [place] [address] Barbiturates, Ur Negative Normal [facility] Comment on above: Performed By: #### HEMDF, LA CT3, BNP3, CMP3, LIPA4, TROPN, PT #### [facility] [address] [place] [address] Benzodiazepines, Ur Negative Normal [facility] Comment on above: Performed By: #### HEMDF, LA CT3, BNP3, CMP3, LIPA4, TROPN, PT #### [facility] [address] [place] [address] Cocaine, Ur Negative Normal [facility] Comment on above: Performed By: #### HEMDF, LA CT3, BNP3, CMP3, LIPA4, TROPN, PT #### [facility] [address] [place] [address] Methadone, Ur Negative Normal [facility] Comment on above: Performed By: #### HEMDF, LA CT3, BNP3, CMP3, LIPA4, TROPN, PT #### [facility] [address] [place] [address] Opiates, Ur Negative Normal [facility] Comment on above: Performed By: #### HEMDF, LA CT3, BNP3, CMP3, LIPA4, TROPN, PT #### [facility] [address] [place] [address] Oxycodone/Oxymorphine,Ur Negative Normal [facility] Comment on above: Performed By: #### HEMDF, LA CT3, BNP3, CMP3, LIPA4, TROPN, PT #### [facility] [address] [place] [address] Phencyclidine (PCP), Ur Negative Normal [facility] Comment on above: Result Comment: The expected value for all of the drugs listed above is Negative. The following drugs or drug groups have been screened for by Immunoassay at the llowing thresholds: Amphetamine class (1000 ng/m L), Barbiturates (200 ng/mL), Benzodiazepines (200 ng/mL), Cocaine (300 ng/mL), Methadone (300 ng/mL), Opiat es (300 ng/mL), Oxycodone (100 ng/mL), and P CP (25 ng/mL). NOTE: These results are for medical treatment only. Analysis performed using non -forensic procedures. POSITIVE results are NOT con firmed by a more specific alternative method unless re quested. If confirmation is needed, request confirmation under separate order. Performed By: #### HEMDF, LA CT3, BNP3, CMP3, LIPA4, TROPN, PT #### [facility] [address] [place] [address] EKG 12 Lead - Chest Pain on 12-05-2019 Felix, [facility] Incoming Cardiolo gy Results From [employer] - 12/05/2019 12:17 PM EDT [place], [place] Test Date: 2019-12-05 Pat Name: Jagruti Ramirez Department: 2AED Room: 253 Gender: M Rodeo Clown: JENA : 1945 Requested By: ABDIFATAH CORDOVA Order Number: [id number] Reading MD: Nuno Hernandez Measurements Intervals Keavy Rate: 96 P: 58 MD: 124 QRS: 54 QRSD: 86 T: 65 QT: 340 QTc: 430 Interpretive Statements SINUS RHYTHM EARLY PRECORDIAL R/S TRANSITION No previous ECG available for comparison Electronically Signed On 12-05-2019 12:16:19 EDT by Willie Hernandez [place], [place] Test Date: 2019-12-05 Pat Name: Jagruti gomez Department: 2AED Room: 253 Gender: M Rodeo Clown: JENA : 1945 Requested By: ABDIFATAH CORDOVA Order Number: [id number] Reading MD: Nuno Hernandez Measurements Intervals Keavy Rate: 96 P: 58 MD: 124 QRS: 54 QRSD: 86 T: 65 QT: 340 QTc: 430 Interpretive Statements SINUS RHYTHM EARLY PRECORDIAL R/S TRANSITION No previo us ECG available for comparison Electronically Signed On 12-05-2019 12:16:19 EDT by Nuno Hernandez Glucose,Bedside on 1 Glucose [Mass/Vol] 84 mg/dL Normal 70-100 [facility] Comment on above: Result Comment: Test perform ed by glucose meter. Results may be 10%-15% lower than serum/plasma values. (C JENNIFER ID [id number]) Performed By: #### HEMDF, LA CT3, BNP3, CMP3, LIPA4, TROPN, PT #### [facility] [employer] [facility] [address] [place] [address] Glucose [Mass/Vol] 84 mg/dL Normal 70-100 [facility] Comment on above: Result Comment: Test perform ed by glucose meter. Results may be 10%-15% lower than serum/plasma values. (C JENNIFER ID [id number]) Performed By: #### HEMDF, LA CT3, BNP3, CMP3, LIPA4, TROPN, PT #### [facility] [address] [place] [address] Glucose [Mass/Vol] 91 mg/dL Normal 70-100 [facility] Comment on above: Result Comment: Test perform ed by glucose meter. Results may be 10%-15% lower than serum/plasma values. (C JENNIFER ID [id number]) Performed By: #### HEMDF, LA CT3, BNP3, CMP3, LIPA4, TROPN, PT #### [facility] [address] [place] [address] Hemoglobin A1C on eAG 111 mg/dL [place], [place] HbA1c (Bld) [Mass fraction] 5.5 % 4 - 6 % [place] Comment on above: --HgbA1C levels may not be a ccurate in patients who have renal disease, received rece nt blood transfusions, are anemic, or who have dyshemoglobinemi a. HbA1c (Bld) [Mass fraction] 5.5 % Normal 4.0-6.0 [facility] Comment on above: Result Comment: --HgbA1C lev els may not be accurate in patients who have renal disease, received rece nt blood transfusions, are anemic, or who have dyshemoglobinemi a. Performed By: #### HEMDF, LA CT3, BNP3, CMP3, LIPA4, TROPN, PT #### [facility] [address] [place] [address] HbA1c (Bld) [Mass fraction] 111 mg/dL Normal [facility] Comment on above: Performed By: #### HEMDF, LA CT3, BNP3, CMP3, LIPA4, TROPN, PT #### [facility] [address] [place] [address] Hemogram (CBC) w/Auto Diff on 12-05-2019 Absolute Baso # 0.0 10*3/uL 0 - 0.2 10*3/uL [facility]- [place], [place] Absolute Neut # 6.5 10*3/uL 1.8 - 7 10*3/uL [facility] [place], [place] Basophils/100 WBC (Bld) 0.4 % 0 - 2 % [facility]- [place], [place] Eosinophils (Bld) 0.0 10*3/uL 0 - 0.5 10*3/uL [facility]- [place], [#/Vol] [place] Eosinophils/100 WBC 0.0 % Low 1 - 6 % [facility]- [place], (Bld) [place] Erythrocyte distribution 15.0 % High 11.5 - 14.5 % [facility] [place], width (RBC) [Ratio] [place] Granulocytes/100 WBC 77.8 % 40 - 80 % [facility]- [place], (Bld) [place] Hematocrit (Bld) [Volume 35.9 % Low 40 - 52 % [facility]- [place], fraction] [place] Hemoglobin (Bld) 12.4 g/dL Low 13 - 18 g/dL [facility]- [place], [Mass/Vol] [place] Lymphocytes (Bld) 0.6 10*3/uL Low 1 - 4.3 10*3/uL [facility]- [place], [#/Vol] [place] Lymphocytes/100 WBC 7.2 % Low 20 - 40 % [facility]- [place], (Bld) [place] MCH (RBC) [Entitic mass] 35.1 pg High 26 - [address] [facility]- [place], [place] MCHC (RBC) [Mass/Vol] 34.6 % 32 - 36 % [facility] [place] MCV (RBC) [Entitic vol] 101.2 fL High 80 - 98 fL [facility]- [place], [place] Monocytes (Bld) [#/Vol] 1.2 10*3/uL High 0 - 0.8 10*3/uL [facility]- [place], [place] Monocytes/100 WBC (Bld) 14.6 % High 2 - 10 % [facility]- [place], [place] Platelet mean volume 9.3 fL 7.4 - 10.4 fL [facility]- [place], (Bld) [Entitic vol] [place] Platelets (Bld) [#/Vol] 108 10*3/uL Low 140 - 440 10*3/uL [place], [place] RBC (Bld) [#/Vol] 3.55 10*6/uL Low 4.4 - 5.9 10*6/uL [place] WBC (Bld) [#/Vol] 8.4 10*3/uL 3.6 - 10.7 10*3/uL [facility], [place] Test Performed by [facility], [facility] [address] [place] [address] Hemogram w/ Autodiff on 12-05-2019 Abs Baso Cnt 0.0 10*3/uL Normal 0.0-0.2 [facility] Comment on above: Performed By: #### HEMDF, LA CT3, BNP3, CMP3, LIPA4, TROPN, PT #### [facility] [address] [place] [address] Abs Neutrophile Cnt 6.5 10*3/uL Normal 1.8-7.0 [facility] Comment on above: Performed By: #### HEMDF, LA CT3, BNP3, CMP3, LIPA4, TROPN, PT #### [facility] [address] [place] [address] Basophils/100 WBC (Bld) 0.4 % Normal 0.0-2.0 [facility] Comment on above: Performed By: #### HEMDF, LA CT3, BNP3, CMP3, LIPA4, TROPN, PT #### [facility] [address] [place] [address] Eosinophils (Bld) [#/Vol] 0.0 10*3/uL Normal 0.0-0.5 [facility] Comment on above: Performed By: #### HEMDF, LA CT3, BNP3, CMP3, LIPA4, TROPN, PT #### [facility] [address] [place] [address] Eosinophils/100 WBC (Bld) 0.0 % Low 1.0-6.0 [facility] Comment on above: Performed By: #### HEMDF, LA CT3, BNP3, CMP3, LIPA4, TROPN, PT #### [facility] [address] [place] [address] Erythrocyte distribution width (RBC) 15.0 % High 11.5 -14.5 [facility] [Ratio] Comment on above: Performed By: #### HEMDF, LA CT3, BNP3, CMP3, LIPA4, TROPN, PT #### [facility] [address] [place] [address] Granulocytes/100 WBC (Bld) 77.8 % Normal 40.0-80.0 [facility] Comment on above: Performed By: #### HEMDF, LA CT3, BNP3, CMP3, LIPA4, TROPN, PT #### [facility] [address] [place] [address] Hematocrit (Bld) [Volume fraction] 35.9 % Low 40.0-5 2.0 [facility] Comment on above: Performed By: #### HEMDF, LA CT3, BNP3, CMP3, LIPA4, TROPN, PT #### [place] [address] [place] [address] Hemoglobin (Bld) [Mass/Vol] 12.4 g/dL Low 13.0-18.0 [facility] Comment on above: Performed By: #### HEMDF, LA CT3, BNP3, CMP3, LIPA4, TROPN, PT #### [facility] [address] [place] [address] Lymphocytes (Bld) [#/Vol] 0.6 10*3/uL Low 1.0-4.3 [facility] Comment on above: Performed By: #### HEMDF, LA CT3, BNP3, CMP3, LIPA4, TROPN, PT #### [facility] [address] [place] [address] Lymphocytes/100 WBC (Bld) 7.2 % Low 20.0-40.0 [facility] Comment on above: Performed By: #### HEMDF, LA CT3, BNP3, CMP3, LIPA4, TROPN, PT #### [facility] [address] [place] [address] MCH (RBC) [Entitic mass] 35.1 pg High 26.0-34.0 [facility] Comment on above: Performed By: #### HEMDF, LA CT3, BNP3, CMP3, LIPA4, TROPN, PT #### [facility] [address] [place] [address] MCHC (RBC) [Mass/Vol] 34.6 % Normal 32.0-36.0 [facility] Comment on above: Performed By: #### HEMDF, LA CT3, BNP3, CMP3, LIPA4, TROPN, PT #### [facility] [address] [place] [address] MCV (RBC) [Entitic vol] 101.2 fL High 80.0-98.0 [facility] Comment on above: Performed By: #### HEMDF, LA CT3, BNP3, CMP3, LIPA4, TROPN, PT #### [place] [address] [place] [address] Monocytes (Bld) [#/Vol] 1.2 10*3/uL High 0.0-0.8 [facility] Comment on above: Performed By: #### HEMDF, LA CT3, BNP3, CMP3, LIPA4, TROPN, PT #### [facility] [address] [place] [address] Monocytes/100 WBC (Bld) 14.6 % High 2.0-10.0 [facility] Comment on above: Performed By: #### HEMDF, LA CT3, BNP3, CMP3, LIPA4, TROPN, PT #### [facility] [address] [place] [address] Platelet mean volume (Bld) [Entitic vol] 9.3 fL Normal 7.4-10.4 [facility] Comment on above: Performed By: #### HEMDF, LA CT3, BNP3, CMP3, LIPA4, TROPN, PT #### [facility] [address] [place] [address] Platelets (Bld) [#/Vol] 108 10*3/uL Low 140-440 [facility] Comment on above: Performed By: #### HEMDF, LA CT3, BNP3, CMP3, LIPA4, TROPN, PT #### [place] [address] [place] [address] RBC (Bld) [#/Vol] 3.55 10*6/uL Low 4.40-5.90 [facility] Comment on above: Performed By: #### HEMDF, LA CT3, BNP3, CMP3, LIPA4, TROPN, PT #### [facility] [address] [place] [address] WBC (Bld) [#/Vol] 8.4 10*3/uL Normal 3.6-10.7 [facility] Comment on above: Performed By: #### HEMDF, LA CT3, BNP3, CMP3, LIPA4, TROPN, PT #### [facility] [address] [place] [address] Lactic Acid on 12-04 Lactate [Moles/Vol] 1.2 mmol/L Normal 0.7-2.0 [facility] Comment on above: Performed By: #### HEMDF, LA CT3, BNP3, CMP3, LIPA4, TROPN, PT #### [facility] [address] [place] [address] Lactic Acid, Plasma on 12-05-2019 Lactate [Moles/Vol] 1.2 mmol/L 0.7 - 2 mmol/L [place] Lipase on 12-05-2019 Lipase [Catalytic activity/Vol] 1494 U/L High 23 - 300 U/L [place] Lipase [Catalytic activity/Vol] 1494 U/L High 23-300 [facility] Comment on above: Order Comment: Slight Hemoly sis Performed By: #### HEMDF, LA CT3, BNP3, CMP3, LIPA4, TROPN, PT #### [facility] [address] [place] [address] Lipase [Catalytic activity/Vol] 1144 U/L High 23 - 300 U/L [place] Lipase [Catalytic activity/Vol] 1144 U/L High 23-300 [facility] Comment on above: Performed By: #### HEMDF, LA CT3, BNP3, CMP3, LIPA4, TROPN, PT #### [facility] [address] [place] [address] Lipid Panel on 12-04 Cholesterol [Mass/Vol] 142 mg/dL <200 [place], [place] Cholesterol [Mass/Vol] 142 mg/dL Normal < 200 [facility] Comment on above: Performed By: #### HEMDF, LA CT3, BNP3, CMP3, LIPA4, TROPN, PT #### [facility] [address] [place] [address] Cholesterol in HDL [Mass/Vol] 70 mg/dL High 40 - 60 mg/ dL [place] Cholesterol in HDL [Mass/Vol] 70 mg/dL High 40-60 [facility] Comment on above: Performed By: #### HEMDF, LA CT3, BNP3, CMP3, LIPA4, TROPN, PT #### [facility] [address] [place] [address] Cholesterol in LDL [Mass/Vol] 36 mg/dL <100 [place] Cholesterol.total/Cholesterol in HDL [Mass 2 {ratio} [facility], [place] ratio] Comment on above: Ref Range: < 3 Low Risk for CHD 3-6 Mod Risk for CHD > 6 High Risk for CHD Cholesterol.total/Cholesterol in HDL [Mass ratio] 2 Norm al [facility] Comment on above: Result Comment: Ref Range: < 3 Low Risk for CHD 3-6 Mod Risk for CHD > 6 High Risk for CHD Performed By: #### HEMDF, LA CT3, BNP3, CMP3, LIPA4, TROPN, PT #### [facility] [address] [place] [address] Protein [Mass/Vol] 36 mg/dL Normal <100 [facility] Comment on above: Performed By: #### HEMDF, LA CT3, BNP3, CMP3, LIPA4, TROPN, PT #### [facility] [address] [place] [address] Triglyceride [Mass/Vol] 180 mg/dL Abnormal <150 [facility], [place] Triglyceride [Mass/Vol] 180 mg/dL Abnormal <150 [facility] Comment on above: Performed By: #### HEMDF, LA CT3, BNP3, CMP3, LIPA4, TROPN, PT #### [facility] [employer] [facility] [address] [place] [address] NT pro BNP on 2019 Natriuretic peptide B (Bld) [Mass/Vol] 1733 pg/mL High 0- 125 [facility] Comment on above: Order Comment: Slight Hemoly sis Performed By: #### HEMDF, LA CT3, BNP3, CMP3, LIPA4, TROPN, PT #### [facility] [address] [place] [address] Other on 12-05-2019 Interpretation and review of Abnormal [place] laboratory results Interpretation and review of Abnormal [place] laboratory results Test Performed by [facility], [address] [place], [place] [address] Slight Hemolysis Test Performed by [facility], [address] [place] [address] Test Performed by [facility], [address] [place] [address] Test Performed by [facility], [address] [place] [address] POCT Glucose on 11-17 Glucose [Mass/Vol] 84 mg/dL 70 - 100 mg/dL [place], [place] Comment on above: Test performed by glucose me ter. Results may be 10%-15% lower than serum/plasma values. ( CLIA ID [id number]) Glucose [Mass/Vol] 84 mg/dL 70 - 100 mg/dL [place], [place] Comment on above: Test performed by glucose me ter. Results may be 10%-15% lower than serum/plasma values. ( CLIA ID [id number]) Glucose [Mass/Vol] 91 mg/dL 70 - 100 mg/dL [place], [place] Comment on above: Test performed by glucose me ter. Results may be 10%-15% lower than serum/plasma values. ( CLIA ID [id number]) Test Performed by [facility] [employer] [facility], [address], [place], [place], [place] [address] Test Performed by [facility] [employer] [facility], [address], [place] [address] PROCALCITONIN on Interpretation and review of Abnormal [place] laboratory results Procalcitonin 0.26 ng/mL Abnormal <0.10 [place] Sodium [Moles/Vol] See Below [facility] [place] [place] Comment on above: PCT <0.50 = Low risk of alex re sepsis and/or septic shock. PCT >2.00 = High risk of sev ere sepsis and/or septic shock. Test Performed by [facility], [address] [place] [address] Procalcitonin on Interpretation See Below Normal [facility] [employer] [facility] Comment on above: Result Comment: PCT <0.50 = Low risk of severe sepsis and/or septic shock. PCT >2.00 = High risk of sev ere sepsis and/or septic shock. Performed By: #### HEMDF, LA CT3, BNP3, CMP3, LIPA4, TROPN, PT #### [facility] [address] [place] [address] Procalcitonin 0.26 ng/mL Abnormal <0.10 [facility] Comment on above: Performed By: #### HEMDF, LA CT3, BNP3, CMP3, LIPA4, TROPN, PT #### [facility] [employer] [facility] [address] [place] [address] Prothrombin Time on 12-05-2019 INR Coag (PPP) [Relative time] 1.1 Normal 0.9-1.1 [facility] [employer] [facility] Comment on above: Result Comment: Recommended Anticoagulant Therapy: SEE BELOW ----- INR of 2.0 - 3.0 : - Prophylaxis of Venous Thro mbosis (high-risk surgery) - Treatment of Venous Thromb osis - Treatment of Pulmonary Emb olism (Includes tissue heart valves, Acute Myocardial Inf arction to prevent systemic embolism, Valvular Heart Dis ease, and Atrial Fibrillation) ----- INR of 2.5 - 3.5 : - Mechanical Prosthetic Valv es (high risk) - If oral anticoagulant ther apy is used to prevent Myocardial Infarction Performed By: #### HEMDF, LA CT3, BNP3, CMP3, LIPA4, TROPN, PT #### [facility] [employer] [facility] [address] [place] [address] PT Coag (PPP) [Time] 11.2 s Normal 9.0-12.0 [facility] Comment on above: Result Comment: . Performed By: #### HEMDF, LA CT3, BNP3, CMP3, LIPA4, TROPN, PT #### [facility] [employer] [facility] [address] [place] [address] Protime-INR on 12-04 INR Coag (PPP) [Relative time] 1.1 {INR} [place], [place] Comment on above: Recommended Anticoagulant Th erapy: SEE BELOW ----- INR of 2.0 - 3.0 : - Prophylaxis of Venous Thro mbosis (high-risk surgery) - Treatment of Venous Thromb osis - Treatment of Pulmonary Emb olism (Includes tissue heart valves, Acute Myocardial Inf arction to prevent systemic embolism, Valvular Heart Dis ease, and Atrial Fibrillation) ----- INR of 2.5 - 3.5 : - Mechanical Prosthetic Valv es (high risk) - If oral anticoagulant ther apy is used to prevent Myocardial Infarction PT Coag (PPP) [Time] 11.2 s 9 - 12 s [place], [place] Comment on above: . Troponin on 12-05-19 20 Interpretation and review of Abnormal [place], [place] laboratory results Troponin I.cardiac [Mass/Vol] 0.394 ng/mL High 0 - 0.034 n g/mL [place], [place] Comment on above: . Test Performed by [facility] [employer] [facility], [address], [place], [place] [address] Troponin I on 2019 Troponin I.cardiac [Mass/Vol] 0.244 ng/mL High 0.000-0.034 [facility] Comment on above: Order Comment: Slight Hemoly sis Result Comment: . Performed By: #### HEMDF, LA CT3, BNP3, CMP3, LIPA4, TROPN, PT #### [facility] [employer] [facility] [address] [place] [address] Troponin I.cardiac [Mass/Vol] 0.394 ng/mL High 0.000-0.034 [facility] Comment on above: Result Comment: . Performed By: #### HEMDF, LA CT3, BNP3, CMP3, LIPA4, TROPN, PT #### [facility] [address] [place] [address] Troponin x1 on 12-04 Troponin I.cardiac [Mass/Vol] 0.244 ng/mL High 0 - 0.034 n g/mL [place] Comment on above: . Urinalysis on 2019 Appearance (U) Clear Clear [place], [place] Comment on above: . Bilirubin Urine Negative Negative mg/dL [place], [place] Comment on above: . Color (U) Yellow Lt. Yellow [place], [place] Comment on above: . Glucose, Ur Normal Normal (<70) mg/dL [place], [place] Comment on above: . Hyaline Casts, UA 51-100 Abnormal Negative /[LPF] [place], [place] Comment on above: . Ketones Ql (U) 20 mg/dL Abnormal Negative [place] Comment on above: . LEUKOCYTES, UA Negative Negative Gerry/uL [place], [place] Comment on above: . Mucous Threads Few Negative /[LPF] [place] Comment on above: . Nitrite, Urine Negative Negative [place], [place] Comment on above: . Occult Blood,Urine 0.03 mg/dL Abnormal Negative [place] Comment on above: . pH (U) 5.5 [pH] [place], [place] Comment on above: . Protein (U) [Mass/Vol] 20 mg/dL Abnormal Negative [place] Comment on above: . RBC (U) [#/Vol] 0-2 0 - 2 /[HPF] [place], [place] Comment on above: . Specific [place], Urine 1.015 [place], [place] Comment on above: . Squam Epithel, UA 0-2 3 - 5 /[HPF] [place], [place] Comment on above: . Urobilinogen, Urine Normal Normal (0-1) mg/dL [place], [place] Comment on above: . WBC, UA 0-2 0 - 5 /[HPF] [facility] [place], [place] Comment on above: . Urine Drug Screen on 12-05-2019 Amphetamines, urine Negative [facility] [place], [place] Barbiturates, Ur Negative [facility]- [place], [place] Benzodiazepine Ur Qual Negative [facility], [place] Cocaine Metabolites, Ur Negative [facility], [place] Methadone, Urine Negative [facility] [place], [place] Opiates, Urine Negative [facility], [place] Oxycodone Screen, Ur Negative [facility] [place]- [place], [place] PCP, Urine Negative [facility] [place] Comment on above: The expected value for all o f the drugs listed above is Negative. The following drugs or drug groups have been screened for by Immunoassay at the fo llowing thresholds: Amphetamine class (1000 ng/m L), Barbiturates (200 ng/mL), Benzodiazepines (200 ng/mL), Cocaine (300 ng/mL), Methadone (300 ng/mL), Opiat es (300 ng/mL), Oxycodone (100 ng/mL), and P CP (25 ng/mL). NOTE: These results are for medical treatment only. Analysis performed using non -forensic procedures. POSITIVE results are NOT con firmed by a more specific alternative method unless re quested. If confirmation is needed, request confirmation under separate order. XR CHEST PORTABLE on 12-05-2019 [facility] Incoming Radiology Results From [facility] - 12:23 AM EDT [place] Patient Name: JAGRUTI RAMIREZ ---Diagnostic Radiology--- Exam Date/Time 12/04/2019 23:56:02 EDT Exam CR Chest Portable Ordering Physician [id number] TREVIÑO Accession Number [id number] CPT4 Codes 46620 () Reason For Exam fatigue, nausea, eval for infectious etiology Report PORTABLE CHEST CLINICAL INDICATION: Fatigue and nausea TECHNIQUE: Portable AP COMPARISON: None FINDINGS: Exam quality: The study is limited due to rotation. The heart and mediastinum are normal. The lungs are cl ear. Costophrenic angles are sharp. Degenerative change of the thoracic spine i s noted. IMPRESSION: No acute abnormality Report Dictated on Workstation: [facility] --- Final --- Dictating Physician: MD ELI JEFFREY Signed Date and Time: 12/05/2019 0:22 am Signed by: MD ELI JEFFREY Transcribed Date and Time: 12/05/2019 0:23 Patient Name: JAGRUTI RAMIREZ [facility]: [place], [place] [id number] ---Diagnostic Radiology--- Exam Date/Time 12/04/2019 23:56:02 EDT Exam CR Chest Portable Ordering Physician [id number] ABDIFATAH BARNEY Accession Number [id number] CP T4 Codes 63074 () Reason For Exam fatigue, nausea, eval f or infectious etiology Report PORTABLE CHEST CLINICAL INDICATION: Fatigue and nausea TECHNIQUE: Portable AP COMPARISON: None FINDINGS: Exam quality: The study i s limited due to rotation. The heart and mediastinum are normal. The lungs are clear. Costophrenic angles are sharp. Degenerative change of the thoracic spine is no mela. IMPRESSION: No acute abnormality Report Dictated on Workstation: [facility] --- Final --- Dictating Physician: MD ELI JEFFREY Signed Date and Time: 12/05/2019 0:22 am Signed by: MD ELI JEFFREY Transcribed Date and Time: 12/05/2019 0:23 ED Provider Note on 12-04-2019 ED Provider Note [facility] EMERGENCY DEPARTMENT ENCOUNTER Pt Name: Jagruti Ramirez Birthdate 1945 Date of evaluation: 12/04/2019 Provider: Abdifatah Cordova, DO CHIEF COMPLAINT Chief Complaint Patient presents with ? Nausea & Vomiting HISTORY OF PRESENT ILLNESS (Location/Symptom, Timing/Onset, Context /Setting, Quality, Duration, Modifying Factors, Severity) Note limiting factors. I wore a mask for the entirety of this encounter. Scooby Ramirez is a 74 y.o. male who [facility] fatigue, nausea, vomiting over the past 24 hours. Patient state s he has been unable to hold anything down which is causing him to be very fatig ued. Patient denies any abdominal pain, chest pain, shortness of breath. Patient states he d oes have chronic back pain. Denies any dysuria, hematuria, fevers, chills, focal weakness or numbness. Patient admits to being a da kyler drinker however he says he has been vomiting up all the alcohol that he atte mpts to drink over the past week. Patient thinks he has gone through the worst of his withdrawal symptoms. Nursing Notes were reviewed. REVIEW OF SYSTEMS (2+ for level 4; 10+ for level 5) 14 systems reviewed and otherwise acutely negative exc ept as in the [place]. PAST MEDICAL HISTORY Past Medical History: Diagnosis Date ? Diabetes mellitus (HCC) ? Hypertension SURGICAL HISTORY History reviewed. No pertinent surgical history. CURRENT MEDICATIONS Previous Medications GABAPENTIN (NEURONTIN) 600 MG TABLET Take 900 mg by mo ut daily. METOPROLOL SUCCINATE PO Take by mouth ALLERGIES Patient has no known allergies. FAMILY HISTORY History reviewed. No pertinent family history. SOCIAL HISTORY Social History Socioeconomic History ? Marital status: Unknown Spouse name: None ? Number of children: None ? Years of education: None ? Highest education level: None Occupational History ? None Social Needs ? Financial resource strain: None ? Food insecurity Worry: None Inability: None ? Transportation needs Medical: None Non-medical: None Tobacco Use ? Smoking status: Current Some Day Smoker ? Smokeless tobacco: Never Used Substance and Sexual Activity ? Alcohol use: Yes ? Drug use: Never ? Sexual activity: None Lifestyle ? Physical activity Days per week: None Minutes per session: None ? Stress: None Relationships ? Social connections Talks on phone: None Gets together: None Attends spiritism service: None Active member of club or organization: None Attends meetings of clubs or organizations: None Relationship status: None ? Intimate partner violence Fear of current or ex partner: None Emotionally abused: None Physically abused: None Forced sexual activity: None Other Topics Concern ? None Social History Narrative ? None SCREENINGS PHYSICAL EXAM (up to 7 for level 4, 8 or more for level 5) ED Triage Vitals [12/04/197] BP Temp Temp Source Pulse Resp SpO2 Height Weight 102/88 99 ?F (37.2 ?C) Temporal 112 18 96 % -- -- CONSTITUTIONAL: AOx4, no apparent distress, appears st ated age, mild tremulousness HEAD: normocephalic, atraumatic EYES: PERRL, EOMI ENT: moist mucous membranes, uvula midline NECK: supple, symmetric BACK: symmetric LUNGS: clear to auscultation bilaterally CARDIOVASCULAR: regular rate and rhythm, no murmurs, r ubs or gallops ABDOMEN: soft, non-tender, non-distended with normal a ctive bowel sounds : deferred NEUROLOGIC: MAEx4, no focal sensory or motor deficits MUSCULOSKELETAL: no clubbing, cyanosis or edema SKIN: no exposed rash DIAGNOSTIC RESULTS EKG (Per Emergency Physician): Sinus rhythm rate 96, normal axis, normal intervals, n o acute ST or T-wave changes RADIOLOGY (Per Emergency Physician): Xr Chest Portable Result Date: 12/05/2019 Patient Name: JAGRUTI RAMIREZ [id number] ---Diagnostic Radiology--- Exam Date/Time 12/04/2019 23:56:02 EDT Ex am CR Chest Portable Ordering Physician [id number] ABDIFATAH BARNEY Accession Number [id number] CPT4 Codes 80416 () Arnegard son For Exam fatigue, nausea, eval for infectious etiology Report PORTABLE CHEST CLINICAL INDICATION: Fatigue and nausea TECHNIQUE: Portable AP COMPARISON: None FINDINGS: Exam quality: The study is limited due to ro tation. The heart and mediastinum are normal. The lungs are clear. Costophre ly angles are sharp. Degenerative change of the thoracic spine is noted. IM PRESSION: No acute abnormality Report Dictated on Workstation: [facility] --- Final --- Dictating Physician: MD ELI JEFFREY Signed Date and Time: 12/05/2019 0:22 am Signed by: MD ELI JEFFREY Transcribed Date and Xavi e: 12/05/2019 0:23 Interpretation per the Radio logist below, if available at the time of this note: Xr Chest Portable Result Date: 12/05/2019 Patient Name: AJGRUTI RAMIREZ [id number] ---Diagnostic Radiology--- Exam Date/Time 12/04/2019 23:56:02 EDT Ex am CR Chest Portable Ordering Physician [id number] ABDIFATAH BARNEY Accession Number [id number] CPT4 Codes 06895 () Arnegard son For Exam fatigue, nausea, eval for infectious etiology Report PORTABLE CHEST CLINICAL INDICATION: Fatigue and nausea TECHNIQUE: Portable AP COMPARISON: None FINDINGS: Exam quality: The study is limited due to ro tation. The heart and mediastinum are normal. The lungs are clear. Costophre ly angles are sharp. Degenerative change of the thoracic spine is noted. IM PRESSION: No acute abnormality Report Dictated on Workstation: [facility] --- Final --- Dictating Physician: MD ELI JEFFREY Signed Date and Time: 12/05/2019 0:22 am Signed by: MD ELI JEFFREY Transcribed Date and Xavi e: 12/05/2019 0:23 Ct Abdomen Pelvis Wo Contrast Result Date: 12/05/2019 Patient Name: JAGRUTI RAMIREZ [id number] ---CT--- Exam Date/Time 12/05/2019 02:09:[address] Abdomen/Pelvis (No PO, No IV) Ordering Physician [id number] TREVIÑO Accession Number [id number] CPT4 Codes 99854 (CT Abdomen/Pelvis (No PO, No IV)) Reason For Exam e levated lipase, nasuea, vomit Report CT ABDOMEN AND PELVIS WITHOUT CONTRAST CLINICAL INDICATION: Elevated lipase with nausea and vomiting TECHNIQUE: Transaxial sequence through the abdomen and pelvis without contrast with 3 mm reconstruction. Sagittal coronal reconstruction images included. Dose reduction was emp loyed with automated exposure control. COMPARISON: None. FINDINGS: Exam ramona lity: This examination is limited for the evaluation of solid organs and vasc ular structures due to the lack of intravenous contrast and limited for evalu ation of the gastrointestinal tract due t o lack of oral contrast. Chest base: Normal. Liver: Generalized marked diminished attenuation as compared to the spleen, corresponding to severe diffuse fatty infiltration. No identifiable lesion. Biliary tree: Normal caliber. Two calcif ied stones are noted each measuring up to 0.5 cm. There is no wall thickening with surroundin g inflammatory change Spleen: Normal. Adrenals: Normal. Pancreas: Unremarkab le. Kidneys: No contour abnormality or focal renal lesion. Renal colle cting systems: No calculi, hydronephrosis or ureteral dilatation. Free f luid: None. Retroperitoneal/mesenteric lymphadenopathy: None. Aort a: Normal caliber with atherosclerotic calcification. Bowel: A ventral hernia is noted in the right lower quadrant containing nondilated sma ll bowel loop. The hernia demonstrates acaliber of up to 7 cm. Ther e is no other bowel dilatation or free air. Retained feces are noted. Abdominal w all: Normal. Bladder: No calculi or filling defects. Pelvic organs/viscera: No ma ss identified. Pelvic lymphadenopathy: None. Osseous structures: Normal. IMPRESSION: 1. Ventral herni a containing nondilated small bowel loop in the right lower quadrant 2. Cholelithias is 3. Fatty liver. Report Dictated on Workstation: [facility] --- Final --- Dictating Physician: MD ELI JEFFREY Signed Date and Ti me: 12/05/2019 2:18 am Signed by: MD ELI JEFFREY Transcribed Date and Time: 11/17 2:19 ED BEDSIDE ULTRASOUND: Performed by ED Physician - none LABS: Labs Reviewed COMPREHENSIVE METABOLIC PANE L - Abnormal; Notable for the following components: Result Value Sodium 130 (*) Potassium 5.9 (*) Chloride 93 (*) CO2 21 (*) Glucose 130 (*) BUN 34 (*) CREATININE 1.88 (*) eGFR 40.4 (*) EGFR IF NonAfrican Honduran 34.8 (*) Total Protein 8.4 (*) Total Bilirubin 2.0 (*) ALT 114 (*) AST 144 (*) All other components within normal limits Narrative: Test Performed by [facility], [address] [place], [place] [address] Slight Hemolysis CBC WITH AUTO DIFFERENTIAL - Abnormal; Notable for the following components: RBC 3.55 (*) Hemoglobin 12.4 (*) Hematocrit 35.9 (*) MCV 101.2 (*) MCH 35.1 (*) RDW 15.0 (*) Platelets 108 (*) Lymphocyte % 7.2 (*) Monocytes 14.6 (*) Eosinophils 0.0 (*) Absolute Lymph # 0.6 (*) Absolute [place] # 1.2 (*) All other components within normal limits Narrative: Test Performed by [facility], [address] [place], [place] [address] LIPASE - Abnormal; Notable for the following component s: Lipase 1,494 (*) All other components within normal limits Narrative: Test Performed by [facility], [address] [place], [place] [address] Slight Hemolysis TROPONIN - Abnormal; Notable for the following compone nts: Troponin I 0.244 (*) All other components within normal limits Narrative: Test Performed by [facility], [address] [place], [place] [address] Slight Hemolysis BRAIN NATRIURETIC PEPTIDE - Abnormal; Notable for the following components: NT Pro-BNP 1,733 (*) All other components within normal limits Narrative: Test Performed by [facility] [employer], [address] [place], [place] [address] Slight Hemolysis LACTIC ACID, PLASMA Narrative: Test Performed by [facility], [address] [place], [place] [address] PROTIME-INR Narrative: Test Performed by [facility], [address] [place], [place] [address] URINALYSIS All other labs were within normal range or not r eturned as of this dictation. EMERGENCY DEPARTMENT COURSE and DIFFERENTIAL DIAGNOSIS /MDM: Vitals: Vitals: 12/05/19 0131 12/05/19 0203 12/05/19 0209 12/05/19 023 1 BP: (!) 150/81 (!) 145/78 (!) 150/80 Pulse: 109 97 101 Resp: Temp: TempSrc: SpO2: 96% 97% 97% Medications sodium chloride flush 0.9 % injection 3 mL (has no administration in time range) LORazepam (ATIVAN) injection 1 mg (has no administrati on in time range) 0.9 % sodium chloride bolus (1,000 mLs Intravenous New Bag 12/05/19 0020) ondansetron (ZOFRAN) injection 4 mg (4 mg Intravenous Given 12/05/19 0020) MDM Number of Diagnoses or Management Options Alcohol withdrawal syndrome with complication (HCC): Alcohol-induced acute pancreatitis, unspecified compli cation status: . Patient presents to emergenc y room with increased nausea and vomiting, unable to keep down any p.o. over the past week. Patient nupur n went to check on him today and brought him in for evaluation. Patient is a known alcoholic, daily drinker until about last week when he st arted vomiting up anything he attempts to drink. Patient denies any pain. We will check a bro ad workup including basic abdominal labs, cardiac workup, CT of abdomen an d reassess. REVAL: Patient found to have multiple metabolic derange ments, elevated lipase, acute kidney injury, low sodium, p atient also has elevated BNP and troponin of 0.2 of uncertain etiology. Patient has no chest pain or troub le breathing. Patient with slight improvement of his symptoms after fl uids and Zofran. Patient also given 1 mg of Ativan for his mild tremor and withdrawal symptoms from alcohol. Due to his pancreatitis, alcohol withdrawal symp toms, metabolic derangements, will admit to medical service for further evaluation. CRITICAL CARE TIME Total Critical Care time was 35 minutes, excluding sep arately reportable procedures. There was a high probability of clinically significant /life threatening deterioration in the patient 's condition which required my urgent intervention. CONSULTS: IP CONSULT TO GERIATRICS PROCEDURES: Unless otherwise noted below, none Procedures FINAL IMPRESSION 1. Alcohol-induced acute pancreatitis, unspecified com plication status 2. Alcohol withdrawal syndrome with complication (HCC) 3. Elevated troponin 4. KEN (acute kidney injury) (HCC) 5. Hyponatremia 6. Elevated brain natriuretic peptide (BNP) level DISPOSITION/PLAN DISPOSITION Admitted 12/05/2019 02:37:16 AM PATIENT REFERRED TO: No follow-up provider specified. DISCHARGE MEDICATIONS: New Prescriptions No medications on file (Please note: Portions of this note were completed wit h a voice recognition program. Efforts were made to edit the dictations but occasionally words and phrases are mis-transcribed.) Form [id number] Abdifatah Cordova DO (electronically signed) Emergency Medicine Provider Abdifatah Cordova DO 12/05/19 0249 VIRGILIO on 07-21-2019 Potassium [Moles/Vol] 30.0 mmol/L Normal [facility] ([place]) Comment on above: Performed By: #### VIRGILIO OSMO U #### [address] [address] #### UA #### [address] [address] OSMOS on 07-21-2019 Osmolality [Osmolality] 275 mosm/kg Normal 275-300 [facility] ([place]) Comment on above: Performed By: #### VIRGILIO OSMO U #### [address] [address] #### UA #### [address] [address] OSMOU on 07-21-2019 U Osmolality 212 mOsm/kg Low 390-1090 [facility] ([place]) Comment on above: Performed By: #### VIRGILIOJORDYNO U #### [address] [address] #### UA #### [address] [address] .GFR on 07-20-2019 GFR 89 ml/min/1.73sqm Normal [facility] ([place]) Comment on above: Result Comment: GFR Population mean for Afri can [place]uran, Non- Americans Ages 20-29 = 116 mL/min/1.73 sq.m. Ages 30-39 = 107 mL/min/1.73 sq.m. Ages 40-49 = 99 mL/min/1.73 sq.m. Ages 50-59 = 93 mL/min/1.73 sq.m. Ages 60-69 = 85 mL/min/1.73 sq.m. Ages 70+ = 75 mL/min/1.73 sq .m. Chronic Kidney Disease: Less than 60 mL/min/1.73 square meters End Stage Renal Disease: Les s than 15 mL/min/1.73 square meters Performed By: #### VIRGILIOJORDYNO U #### [address] [address] #### UA #### [address] [address] GFR Non- 74 ml/min/1.73sqm Normal [facility] ([place]) Comment on above: Result Comment: GFR Population mean for Afri can Honduran, Non- Americans Ages 20-29 = 116 mL/min/1.73 sq.m. Ages 30-39 = 107 mL/min/1.73 sq.m. Ages 40-49 = 99 mL/min/1.73 sq.m. Ages 50-59 = 93 mL/min/1.73 sq.m. Ages 60-69 = 85 mL/min/1.73 sq.m. Ages 70+ = 75 mL/min/1.73 sq .m. Chronic Kidney Disease: Less than 60 mL/min/1.73 square meters End Stage Renal Disease: Les s than 15 mL/min/1.73 square meters Performed By: #### VIRGILIO OSMO U #### [place] [address] #### UA #### [address] [address] CMP on 07-20-2019 Albumin Level 3.8 G/dL Normal 3.4-4.8 [facility] ([place]) Comment on above: Performed By: #### VIRGILIO OSMO U #### [place] [address] #### UA #### [address] [address] Albumin/Globulin [Mass ratio] 1.2 {ratio} Normal 1.1-2.5 [facility] ([place]) Comment on above: Performed By: #### VIRGILIO OSMO U #### [place] [address] #### UA #### [address] [address] ALP [Catalytic activity/Vol] 93 U/L Normal 40-135 [facility] ([place]) Comment on above: Performed By: #### VIRGILIO OSMO U #### [place] [address] #### UA #### [address] [address] ALT [Catalytic activity/Vol] 32 U/L Normal 10-35 [facility] ([place] Comment on above: Performed By: #### VIRGILIO OSMO U #### [place] [address] #### UA #### [address] [address] AST [Catalytic activity/Vol] 29 U/L Normal 10-40 [facility] ([place] Comment on above: Performed By: #### VIRGILIO OSMO U #### [place] [address] #### UA #### [address] [address] Bili Total 0.4 mg/dL Normal 0.2-1.0 [facility] ([place]) Comment on above: Result Comment: Use of this assay is not recommended for patients undergoing treatment with eltrombopag d ue to the potential for falsely elevated results. Performed By: #### VIRGILIO OSMO U #### [place] [address] #### UA #### [address] [address] BUN/Creatinine Ratio 9 ratio Normal 7-27 [facility] ([place] Comment on above: Performed By: #### VIRGILIO OSMO U #### [place] [address] #### UA #### [address] [address] Calcium [Mass/Vol] 8.7 mg/dL Normal 8.4-10.2 [facility] ([place]) Comment on above: Performed By: #### VIRGILIO, OSMO U #### [place] [address] #### UA #### [address] [address] Chloride [Moles/Vol] 98 mmol/L Normal 98-107 [facility] ([place] Comment on above: Performed By: #### VIRGILIO,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 Signs Date Time Vital Sign Value Performing Clinician Facilit y 01-31-2020 Body temperature 37.0 degrees C [facility] 03:45-0500 Center Comment on above: Result Comment: NOTE: PATIEN T RESULTS ARE NOT CORRECTED FOR TEMPERATURE. Performed By: #### TROP2 ### # [facility] [address] [place] [address] 12-09-2019 Body Temperature 97.81 [degF] [facility], 07:47-0400 [place] 12-09-2019 BP Diastolic 72 mm[Hg] [facility], 07:47-0400 [place] 12-09-2019 BP Systolic 146 mm[Hg] [facility], 07:47-0400 [place] 12-09-2019 Pulse (Heart Rate) 111 /min [facility], 07:47-0400 [place] 12-09-2019 Pulse Oximetry 96 % [facility], [id number] [place] 12-09-2019 Respiratory Rate 20 /min Abdifatah [facility], [id number] [place] 12-06-2019 Height 165.1 cm [facility], 08:53-0400 [place] 12-05-2019 BMI (Body Mass Index) 22.16 kg/m2 [facility], 03:54-0400 [place] 12-05-2019 Body weight 60.4 kg [facility], 03:54-0400 [place] Clinical Note 02-09-2020 Note Date & Type Note Facility 02-09-2020 Note . [facility] ([place]) MICRO - Microbiology PROCEDURE: Blood Culture [id number] (bacterial) [*1] SOURCE: Blood BODY SITE: COLLECTED DATE/TIME: 020 13:57 EST RECEIVED DATE/TIME: 01/30/2020 19:24 EST START DATE/TIME: 01/30/2020 19:24 EST FR EE TEXT SOURCE: FINAL REPORTS Final Report [] Verified Date/Time/Personnel: 02/09/2020 07:19 EST Staphylococcus coagulase negative Isolated from aerobe bottle only. 1 of 2 sets positive. Organism is a potential contaminant. Clinical Significance undetermined. Please contact Microbiology if further w ork-up is required. Staphylococcus coagulase negative #2 Isolated from aerobe bottle only. 1 of 2 sets positive. Organism is a potential contaminant. Clinical Significance undetermined. Please contact Microbiology if further w ork-up is required. PRELIMINARY REPORTS Preliminary Report [] Verified Date/Time/Personnel: 02/02/2020 09:36 EST Staphylococcus coagulase negative Isolated from aerobe bottle only. 1 of 2 sets positive. Organism is a potential contaminant. Clinical Significance undetermined. Please contact Microbiology if further w ork-up is required. Staphylococcus coagulase negative #2 Isolated from aerobe bottle only. 1 of 2 sets positive. Organism is a potential contaminant. Clinical Significance undetermined. Please contact Microbiology if further w ork-up is required. Preliminary Report [] Verified Date/Time/Personnel: 01/30/2020 20:00 EST Culture has been received in lab and is no growth to date. Routine cultures are held for 5 days. STAINS GSAER [] Verified Date/Time/Personnel: 01/31/2020 11:07 EST Gram Positive Cocci in clusters GS [] Verified Date/Time/Personnel: 01/31/2020 11:05 EST Gram Positive Cocci in clusters Performing Locations *1: This test was performed at: [address], [address] [place] [address] Comment on above: Performed By: #### TAMRA POOLE U #### [address] [address] #### UA #### [address] [address] Clinical Note 02-04-2020 Note Date & Type Note Facility 02-04-2020 Note . [facility] ([place] MICRO - Microbiology PROCEDURE: Blood Culture [id number] (bacterial) [*1] SOURCE: Blood BODY SITE: COLLECTED DATE/TIME: 020 13:57 EST RECEIVED DATE/TIME: 01/30/2020 19:24 EST START DATE/TIME: 01/30/2020 19:24 EST FR EE TEXT SOURCE: FINAL REPORTS Final Report [] Verified Date/Time/Personnel: 02/04/2020 19:59 EST Blood Culture: No Growth at 5 days. PRELIMINARY REPORTS Preliminary Report [] Verified Date/Time/Personnel: 01/30/2020 20:00 EST Culture has been received in lab and is no growth to date. Routine cultures are held for 5 days. Performing Locations *1: This test was performed at: [address], [address] Comment on above: Performed By: #### VIRGILIO TAMRA U #### [address] [address] #### UA #### [address] [address] Clinical Note 02-01-2020 Note Date & Type Note Facility 02-01-2020 Note . [facility] ([place] MICRO - Microbiology PROCEDURE: Urine Culture [*1] SOURCE: Urine, Clean Catch BODY SITE: COLLECTED DATE/TIME: 020 13:57 EST RECEIVED DATE/TIME: 01/30/2020 19:24 EST START DATE/TIME: 01/30/2020 19:24 EST FR EE TEXT SOURCE: FINAL REPORTS Final Report [] Verified Date/Time/Personnel: 02/01/2020 08:55 EST <10,000 cfu/ml. No Significant growth. Sensitivity not indicated. PRELIMINARY REPORTS Preliminary Report [] Verified Date/Time/Personnel: 01/31/2020 08:35 EST No growth to date Performing Locations *1: This test was performed at: [address], [address] Comment on above: Performed By: #### VIRGILIOJORDYNO U #### [place] [address] #### UA #### [address] [address] Summary Purpose Family History No Family History Records FoundNo Family History Records FoundNo Family History Records FoundNo Family History Records Found Advance Directives No Advanced Directives Records Found Latest Code Status on File Code Status Date Activated Date Inactivated Comments Full Code 12/05/2019 5:28 AM Hospital Course Note Hospitalist Discharge Summary Throughou t the encounter I wore an N95 MASK, FACE SHIELD Jagruti Ramirez : 1945 Admit date: 12/04/2019 Discharge date: 12/09/2019 Admitting Physician: Xavier Nuno MD Primary Care Physician: No primary care provider on file. Visit Sta tus: Admission Code Status: Prior Discharge Diagnoses: Active Problems: Alcohol-thierry nina acute pancreatitis Elevated LFTs Thrombocytopenia (HCC) Resolved Problems : * No resolved hospital problems. * Acute kidney injury due to volume depletion In determinate elevation of troponin due to renal dysfunction Chronic ethanol use Mi ld Aortic Stenosis Procedures: None Tests : CMP, Lipase Hospital Course: Improved. Shanelle celeste is a 74 year old male who was admitted for ethanol induced acute pancreatitis, recurrent, he was managed with IV hydration and daily monitoring of LFT's and lipase , improved clincally in the next few days, was also noted to be in KEN. Both renal function and Lipase improved, Cardiology was consulte (more content not included)... Note Send Summary: Discharge Summary Provide rs: Provider RoleProvider Name Finn, Devaughn Lopez, Christen ConsultingChris, Devaughn ConsultingSileslie, Xavi Consult Chanel, Abelardo Krause Note Recipients: Abelardo Adamson DO - [id number] [] Discharge: Summary: Admission Date: .30-Jan-2020 22:01:00 Discharge Da te: 04-Feb-2020 Attending Physician at Discharge: Devaughn Shea Admission Reason: AMS, rhabdo Final Discharge Diagnoses: Nonrheumatic aortic valve sachin nosis rhabdomyolysis alcohol withdrawal Procedures: none Condition at Discharge: Fair Disposition at Discharge: Retirement Facility Vital Signs: Date: ht/Scale Type:Height: 31-Jan-2020 02:4358.4 kg / ytb503.1 cm Physical Exam: General appearance: overweight, chronically ill appearing, not in pain or distress, kiera isons on forehead HEENT: Atraumatic/normocephalic, EOMI, MIGUEL Ne ck: Supple, no jugular venous distension, lymphadenopathy Respiratory: Equal sinan l breath sounds, no (more content not included)... Discharge Instructions Discharge Instr - Ray Foreman DO - 12/07/2019 9:59 AM EDTAs tolerated Discharge Instr - Ray Haney DO - 12/07/2019 9:59 AM EDTGood nutrition is important when healing from an illness, injury, or surgery. Follow any nutrition recommendations given to you during your hospital stay. If you were given an oral nutrition supplement while in the hospital, continue to take this supplement at home. You can take it with meals, in-between meals, and/or before bedtime. These supplements can be purchased at most local grocery stores, pharmacies, and chain [employer]adian-stores. If you have any questions about your diet or nutrition, call the hospital and ask for the dietitian. Additional InstructionsRay Ulrich DO - 12/07/2019 GENERAL SIGNS AND SYMPTOMS GREEN ZONE: All Clear- Your Symptoms Are Under Control No recurrence of symptoms that led to hospitalization Able to do usual activities No fever No chest pain No shortness of breath This Means You Should: Continue taking your medications as prescribed Continue activity as tolerated Keep all doctor appointments YELLOW ZONE: Caution as Your Health may be Worsening Recurrence of symptoms that led to hospitalization Fever of 100 degrees or higher Increased fatigue or restlessness Intolerant side-effects of medications Uneasy feeling or that something is wrong This Means You Should: Call your doctor for further instructions RED ZONE: Medical Alert Severe or unrelieved shortness of breath at rest Unrelieved chest pain Confusion or you can't think clearly This Means You Should Call 911 Immediately AttachmentsThe following attachments cannot be sent through Care Everywhere. Pancreatitis (Swedish)documented in this encounter History of Present Illness Radha Cuadra, OT - 12/09/2019 11:51 AM EDT Occupational Therapy Facility/Department: [facility] 2E TELEMETRY Daily Treatment Note NAME: Jagruti Ramirez : 1945 Date of Service: 12/09/2019 Discharge Recommendations: Subacute/Retirement Facility OT Equipment Recommendations Equipment Needed: No Assessment Performance deficits / Impairments: Decreased functional mobility ;Decreased ADL status;Decreased strength;Decreased safe awareness;Decreased cognition;Decreased endurance;Decreased sensation;Decreasedhigh-level IADLs;Decreased coordination;Decreased fine motor control;Decreased balance;Decreased posture Assessment: Pt participated in OT tx with focus on safety and transfers/mobility during ADL routine.Pt completed sit to stands with cues and SBA for safety, with good tolerance for activity. Pt continues to disregard safety cueing and abandoned walker during mobility, demo high fall risk. Continue torec SNF [facility] [place] for pt safety. Prognosis: Fair Decision Making: Medium Complexity History: Pt is 74yo male admitted with pancreatitis. PMH listed. Exam: AM PAC Assistance / Modification: MOD ASSIST OT Education: OT Role;Plan of Care;Transfer Training Barriers to Learning: cog noted REQUIRES OT FOLLOW UP: Yes Activity Tolerance Activity Tolerance: Patient limited by fatigue;Treatment limited secondary to decreased cognition Safety Devices Safety Devices in place: Yes Type of devices: All fall risk precautions in place;Gait belt;Call light within reach;Patient at risk for falls;Nurse notified;Left in bed;Bed alarm in place Patient Diagnosis(es): The primary encounter diagnosis was Alcohol-induced acute pancreatitis, unspecified complication status. Diagnoses of Alcohol withdrawal syndrome with complication (HCC), Elevated troponin, KEN (acute kidney injury) (HCC), Hyponatremia, and Elevated brain natriuretic peptide (BNP) level were also pertinent to this visit. has a past medical history of Diabetes mellitus (HCC), Hypertension, Lower back pain, and Neuropathy. has a past surgical history that includes Colon surgery. Restrictions Restrictions/Precautions Restrictions/Precautions: General Precautions, Fall Risk, Seizure(tele, bed alarm, CIWA) Subjective General Chart Reviewed: Yes Patient assessed for rehabilitation services?: Yes Additional Pertinent Hx: ETOH Family / Caregiver Present: No Subjective Subjective: pleasant and cooperative, slightly confused General Comment Comments: OK to see per RN Vital Signs Patient Currently in Pain: Yes(c/o back pain, did not rate) Orientation Orientation Overall Orientation Status: Within Functional Limits Orientation Level: Oriented to person;Oriented to place;Oriented to situation Objective ADL Grooming: Supervision(combed hair at EOB, decreased sitting balance using postural supports and leaning back for rest breaks) Additional Comments: pt limited by fatigue, weakness and cognitive deficits Balance Sitting Balance: Stand by assistance Standing Balance: Stand by assistance(at standard walker) Functional Mobility Functional - Mobility Device: Standard Walker Activity: To/from bathroom Assist Level: Stand by assistance Functional Mobility Comments: pt declined to use FWW, using standard walker appropriately initially.After short rest break, pt's lunch came and he quickly abandoned walker requiring increased steadying asisst. Pt disregarded safety cues, demo high fall risk. Toilet Transfers Toilet Transfers Comments: pt refused to sit on commode once in bathroom Transfers Sit to stand: Contact guard assistance;Stand by assistance Stand to sit: Contact guard assistance Transfer Comments: at standard walker. Pt completed 5 sit to stands, with cues for hand placement d/t poor recall from previous transfer training. Pt deferred reaching back during sitting from standingheight. Pt demo poor safety awareness, which is likely to impact I/ADLs at discharge. Plan Plan Times per week: 3 visits Current Treatment Recommendations: Strengthening, Balance Training, Functional Mobility Training, Endurance Training, Neuromuscular Re-education, Safety Education & Training, Equipment Evaluation, Education, & procurement, Self-Care / ADL, Cognitive/Perceptual Training, Cognitive Reorientation Plan Comment: Goals and POC were established in collaboration with patient. AM-PAC Score AM-PAC Inpatient Daily Activity Raw Score: 14 (12/07/19 144) AM-PAC Inpatient ADL T-Scale Score : 33.39 (12/07/19 144) ADL Inpatient CMS 0-100% Score: 59.67 (12/07/191445) ADL Inpatient CMS G-Code Modifier : CK (12/07/191445) Goals Short term goals Time Frame for Short term goals: 4 visits Short term goal 1: Pt will complete toileting tasks at SUP. progressing Short term goal 2: Pt will complete LB ADLs with SUP. progressing Short term goal 3: Pt will complete UB ADLs at SUP. NA Short term goal 4: Pt will complete grooming and self feeding tasks at SUP. progressing Short term goal 5: Pt will complete functional transfers and mobility at FWW with SUP. progressing Patient Goals Patient goals : improve ADL indep Therapy Time Individual Concurrent Group Co-treatment Time In 1052 Time Out 1103 Minutes 11 Timed Code Treatment Minutes: 10 Minutes(TA) Radha Cuadra OT Viola Ceballos RN - 12/09/2019 4:38 AM EDTPt removed tele monitor because the lead stickers were itchy. RN offered to replace the stickers with the hypoallergenic alternative and pt continued to refuse to have the tele placed back on and stated he did not think his heart need to be monitored any more because the heart doctor said his heart was fine. Dr. Keene notified. Susanne Damian RN - 12/08/2019 5:00 PM EDTIMS aware of pt concerns. Samina Amaro APRN - CNP - 12/08/2019 1:19 PM EDTChart reviewed. Echo completed today with well preserved EF- 67% with no regional wall motion abnormalities or significant valvular heart disease. Pt admitted with severe nausea and vomiting in the setting of heavy alcohol use and is presently on a CIWA protocol. He is being treated for acute pancreatitis in the setting of suspected alcohol abuse. He has no prior hx of CAD. He was felt to be volume depleted with KEN which has improved with IV hydration. He has not had any present or past symptoms ofchest discomfort. His admitting Troponin was mildly elevated which is felt to be have been consistent with his admitting presentation of volume depletions and KEN. No further Cardiac evaluation is feltto be warranted. Will sign off. Please call if any further questions or concerns. Ray Hines DO - 12/08/2019 9:41 AM EDT Hospitalist Progress Note 12/08/2019 9:41 AM [phone]: Please page me ([phone]) for patient care issues. [phone]: Please page [facility] night Hospitalist for any issues. Subjective: Admit Date: 12/04/2019 PCP: No primary care provider on file. Room#: 253/2531 Interval History: No overnight issues. Feeling better. Tolerating diet. Denies chest pain, sob, abdominal pain, nausea, vomiting, diarrhea, constipation, fevers, or chills. DIET GENERAL; Dietary Nutrition Supplements: Low Calorie High Protein Supplement Patient Vitals for the past 96 hrs (Last 3 readings): Weight 12/05/19 0354 133 lb 2.5 oz (60.4 kg) 24HR INTAKE/OUTPUT: Intake/Output Summary (Last 24 hours) at 12/08/2019 0941 Last data filed at 12/07/2019 1538 Gross per 24 hour Intake Output 200 ml Net -200 ml Past Medical History: Diagnosis Date Diabetes mellitus (HCC) Hypertension Lower back pain Neuropathy Medications: dextrose metoprolol succinate 50 mg Oral Daily LORazepam 1 mg Intravenous Once sodium chloride flush 10 mL Intravenous 2 times per day enoxaparin 30 mg Subcutaneous Daily famotidine (PEPCID) injection 20 mg Intravenous Daily doxazosin 4 mg Oral Daily gabapentin 900 mg Oral Daily insulin lispro 0-6 Units Subcutaneous TID WC insulin lispro 0-3 Units Subcutaneous Nightly carboxymethylcellulose PF 2 drop Both Eyes TID LABS: CBC: Recent Labs 12/06/1941612/07/1932512/08/19418 WBC 7.2 7.0 6.1 RBC 3.04* 2.95* 3.33* HGB 10.6* 10.3* 11.7* HCT 31.2* 30.0* 33.6* MCV 102.7* 101.5* 100.9* RDW 14.6* 14.6* 14.4 PLT 88* 100* 123* BMP: Recent Labs 12/06/1941612/07/1932512/08/19418 NA 135 133* 136 K 3.8 3.6 3.5 CL 104 105 106 CO2 18* 20* 22 BUN 20 10 5* CREATININE 0.88 0.64 0.61 GLUCOSE 81 103* 137* CALCIUM 8.5 8.4 8.8 ANIONGAP 13 9 8 LIVER PROFILE: Recent Labs 12/06/1941612/07/1932512/08/19418 AST 156* 110* 120* ALT 97* 85* 94* BILITOT 1.4* 1.2 1.1 ALKPHOS 98 93 115 LABALBU 3.5 3.2* 3.6 PROT 6.4 5.8* 6.4 PT/INR: No results for input(s): PROTIME, INR in the last 72 hours. CARDIAC ENZYMES: Recent Labs 12/06/19416 TROPONINI 0.219* Procalcitonin: Lab Results Component Value Date PROCAL 0.26 12/05/2019 COVID-19 PCR: No results for input(s): COVID19 in the last 72 hours. Objective: Vitals: BP 114/84 Pulse 124 Temp 98.5 F (36.9 C) (Temporal) Resp 16 Ht 5' 5 (1.651 m) Wt 133 lb 2.5 oz (60.4 kg) SpO2 96% BMI 22.16 kg/m Pulse Ox: SpO2 Av % Min: 96 % Max: 99 % Supplemental O2: General appearance: No apparent distress, appears stated age and cooperative with exam HEENT: Normal cephalic, atraumatic without obvious deformity. Pupils equal, round, and reactive to light. Extra ocular muscles intact. Conjunctivae/corneas clear. Neck: Supple, with full range of motion. No jugular venous distention. Trachea midline. No lymphadenopathy. Respiratory: Normal respiratory effort. Clear to auscultation, bilaterally without Rales/Wheezes/Rhonchi. Cardiovascular: tachycardic Abdomen: Soft, non-tender, non-distended with normal bowel sounds. No rebound or guarding. Musculoskeletal: No clubbing, cyanosis or edema bilaterally. Full range of motion without deformity. Skin: Skin color, texture, turgor normal. No rashes or lesions. Neurologic: Neurovascularly intact without any focal sensory/motor deficits. Cranial nerves: II-XII intact, grossly non-focal. Assessment 1. Acute pancreatitis suspect due to alcohol abuse-improving 2. Cholelithiasis 3. Fatty liver disease 4. Transaminitis 5. Indeterminate troponin 6. Ventral hernia 7. DM2 8. HTN 9. CKD stage 2 10. Hyperkalemia-resolved [facility] -[facility] monitoring, 2D echo pending, cardiology following -EKG -am labs, replace lytes prn -increase activity/PT/OT eval -DVT prophylaxis: [x] Lovenox [] Heparin [] SCDs [x] Encourage ambulation [] Already on Anticoagulation Advance Directive: Full Code Discharge planning: likely discharge to SNF in next 24 hours Ray Ulrich DO Division of Hospitalist Medicine Inpatient Medical Services PAGER: [phone] Rachel Antunez, PT - 12/07/2019 3:27 PM EDT Physical Therapy Facility/Department: [facility] 2E TELEMETRY Initial Assessment NAME: Jagruti Ramirez : 1945 Date of Service: 12/07/2019 Discharge Recommendations: Subacute/Retirement Facility PT Equipment Recommendations Equipment Needed: No Assessment Body structures, Functions, Activity limitations: Decreased functional mobility ;Decreased strength;Decreased safe awareness;Decreased cognition;Decreased balance Assessment: Pt presents with decreased functional mobility, requiring assist for short distance of ambulation. Pt has decreased standing balance, safety awareness, and cognition, placing pt at an increased risk of falls. Pt is expected to benefit from skilled therapy to address functional mobility, str ength, balance, and safety awareness Prognosis: Good;Fair Decision Making: Medium Complexity History: Pt admitted with nausea, vomiting, pancreatitis Exam: AM-PAC Clinical Presentation: Pt admitted with nausea, vomiting, pancreatitis. PT has a PMH as listed abovethat contributes to clinical presentation. Pt is unsafe to return home alone d/t increased risk of falls PT Education: Goals;PT Role;Plan of Care;Precautions;General Safety Barriers to Learning: Pt is [place] which may impact his ability to learn REQUIRES PT FOLLOW UP: Yes Patient Diagnosis(es): The primary encounter diagnosis was Alcohol-induced acute pancreatitis, unspecified complication status. Diagnoses of Alcohol withdrawal syndrome with complication (HCC), Elevated troponin, KEN (acute kidney injury) (HCC), Hyponatremia, and Elevated brain natriuretic peptide (BNP) level were also pertinent to this visit. has a past medical history of Diabetes mellitus (HCC), Hypertension, Lower back pain, and Neuropathy. has a past surgical history that includes Colon surgery. Restrictions Restrictions/Precautions Restrictions/Precautions: General Precautions, Fall Risk, Seizure(tele, bed alarm, CIWA) Vision/Hearing Vision: Within Functional Limits Hearing: Exceptions to WFL Hearing Exceptions: Hard of hearing/hearing concerns Subjective General Chart Reviewed: Yes Patient assessed for rehabilitation services?: Yes Subjective Subjective: Pt is agreeable to therapy Pain Screening Patient Currently in Pain: Yes(pt c/o back and B foot pain, did not rate) Social/Functional History Social/Functional History Lives With: Alone Type of Home: House Home Layout: Two level, Laundry in basement Home Access: Stairs to enter with rails Entrance Stairs - Number of Steps: 2 Bathroom Shower/Tub: Tub/Shower unit Bathroom Toilet: Standard Bathroom Equipment: (DENIES) Bathroom Accessibility: Walker accessible Home Equipment: Cane Receives Help From: Family ADL Assistance: Independent Homemaking Assistance: Independent Homemaking Responsibilities: Yes Ambulation Assistance: Independent(cane occasionally) Transfer Assistance: Independent Active Director Patient Financial Services: Yes Mode of Transportation: Car Education: [employer] 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 Leisure & Hobbies: NA IADL Comments: NA Additional Comments: NA Cognition Cognition Overall Cognitive Status: Exceptions Arousal/Alertness: Appropriate responses to stimuli Following Commands: Follows one step commands with repetition Attention Span: Attends with cues to redirect Memory: Decreased recall of recent events;Decreased short term memory Safety Judgement: Decreased awareness of need for safety;Decreased awareness of need for assistance(bed alarm) Problem Solving: Decreased awareness of errors Insights: Decreased awareness of deficits Initiation: Requires cues for some Sequencing: Requires cues for some Objective Observation/Palpation Observation: B UE tremors AROM RLE (degrees) RLE AROM: WFL AROM LLE (degrees) LLE AROM : WFL Strength RLE Comment: observed functionally Strength LLE Comment: observed functionally Sensation Overall Sensation Status: Impaired(pt reports tingling in B hands) Bed mobility Supine to Sit: Minimal assistance Sit to Supine: Minimal assistance Scooting: Contact guard assistance Comment: increased time and verbal instruction for all mobility Transfers Sit to Stand: Minimal Assistance(to FWW) Stand to sit: Minimal Assistance Comment: denies dizziness Ambulation Ambulation?: Yes Ambulation 1 Surface: level tile Device: Rolling Walker Assistance: Minimal assistance Quality of Gait: pt demonstrates reciprocal pattern with slow scar, unsteadiness noted but no LOB Distance: 20'x1 Stairs/Curb Stairs?: No Balance Posture: Fair Sitting - Static: Fair Sitting - Dynamic: Fair;- Standing - Static: Poor Standing - Dynamic: Poor;- Plan Plan Times per week: 5 visits Times per day: Daily Current Treatment Recommendations: Strengthening, Balance Training, Functional Mobility Training, Home Exercise Program, Safety Education & Training, Patient/Caregiver Education & Training, Equipment Evaluation, Education, & procurement, Positioning, Transfer Training, Gait Training Plan Comment: Goals and/or treatment plan were established in collaboration with patient Safety Devices Type of devices: All fall risk precautions in place, Bed alarm in place, Call light within reach, Gait belt, Patient at risk for falls, Left in bed, Nurse notified OutComes Score AM-PAC Mobility Inpatient How much difficulty turning over in bed?: A Little How much difficulty sitting down on / standing up from a chair with arms?: A Little How much difficulty moving from lying on back to sitting on side of bed?: A Little How much help from another person moving to and from a bed to a chair?: A Little How much help from another person needed to walk in hospital room?: A Little How much help from another person for climbing 3-5 steps with a railing?: Total(not assessed) AM-[facility] Inpatient Mobility Raw Score : 16 AM-PAC Inpatient T-Scale Score : 40.78 Mobility Inpatient CMS 0-100% Score: 54.16 Mobility Inpatient CMS G-Code Modifier : CK AM-PAC Score AM-PAC Inpatient Mobility Raw Score : 16 (12/07/191514) AM-PAC Inpatient T-Scale Score : 40.78 (12/07/191514) Mobility Inpatient CMS 0-100% Score: 54.16 (12/07/191514) Mobility Inpatient CMS G-Code Modifier : CK (12/07/191514) Goals Short term goals Time Frame for Short term goals: 5 visits Short term goal 1: Pt will complete 2-3 sets/10 reps of LE exercises to improve LE strength Short term goal 2: Pt will complete supine<->sit at SBA to improve bed mobility Short term goal 3: Pt will complete sit<->stand with FWW at SBA in preparation for ambulation Short term goal 4: Pt will ambulate at least 40'x2 with FWW at SBA to improve functional mobility Short term goal 5: Pt will improve dynamic standing balance to fair to decrease risk of falls Patient Goals Patient goals : pt did not state Therapy Time Individual Concurrent Group Co-treatment Time In 1417(co-eval with OT) Time Out 1434 Minutes 17 Rachel Moran PT, DPT Radha Carson OT - 12/07/2019 3:22 PM EDT Occupational Therapy Occupational Therapy Initial Assessment Date: 12/07/2019 Patient Name: Jagruti Ramirez : 1945 Date of Service: 12/07/2019 Discharge Recommendations: Subacute/Retirement Facility OT Equipment Recommendations Equipment Needed: No Assessment Performance deficits / Impairments: Decreased functional mobility ;Decreased ADL status;Decreased strength;Decreased safe awareness;Decreased cognition;Decreased endurance;Decreased sensation;Decreasedhigh-level IADLs;Decreased coordination;Decreased fine motor control;Decreased balance;Decreased posture Assessment: Pt reports he was previously indep without devices for ADLs and IADLs. Pt presents on CIWA protocol with difficulty maintaining sitting balance or standing during ADLs, with overall MOD ASSIST provided. Pt is at risk for falls and SNF recommended at md. Prognosis: Fair Decision Making: Medium Complexity History: Pt is 74yo male admitted with pancreatitis. PMH listed. Exam: AM PAC Assistance / Modification: MOD ASSIST OT Education: OT Role;Plan of Care Barriers to Learning: cog noted, fatigue, slightly [place] REQUIRES OT FOLLOW UP: Yes Activity Tolerance Activity Tolerance: Patient limited by fatigue;Treatment limited secondary to decreased cognition Safety Devices Safety Devices in place: Yes Type of devices: All fall risk precautions in place;Gait belt;Call light within reach;Patient at risk for falls;Nurse notified;Left in bed;Bed alarm in place Patient Diagnosis(es): The primary encounter diagnosis was Alcohol-induced acute pancreatitis, unspecified complication status. Diagnoses of Alcohol withdrawal syndrome with complication (HCC), Elevated troponin, KEN (acute kidney injury) (HCC), Hyponatremia, and Elevated brain natriuretic peptide (BNP) level were also pertinent to this visit. has a past medical history of Diabetes mellitus (HCC), Hypertension, Lower back pain, and Neuropathy. has a past surgical history that includes Colon surgery. Restrictions Restrictions/Precautions Restrictions/Precautions: General Precautions, Fall Risk, Seizure(tele, bed alarm, CIWA) Subjective General Chart Reviewed: Yes Patient assessed for rehabilitation services?: Yes Additional Pertinent Hx: ETOH Family / Caregiver Present: No Subjective Subjective: pleasant and cooperative, slightly confused General Comment Comments: OK to see per RN Patient Currently in Pain: Yes(pt c/o back and B foot pain, did not rate) Vital Signs Temp: 97.7 F (36.5 C) Temp Source: Temporal Pulse: 114 Heart Rate Source: Monitor Resp: 16 BP: 113/71 MAP (mmHg): 85 Patient Currently in Pain: Yes(pt c/o back and B foot pain, did not rate) Oxygen Therapy SpO2: 97 % Social/Functional History Social/Functional History Lives With: Alone Type of Home: House Home Layout: Two level, Laundry in basement Home Access: Stairs to enter with rails Entrance Stairs - Number of Steps: 2 Bathroom Shower/Tub: Tub/Shower unit Bathroom Toilet: Standard Bathroom Equipment: (DENIES) Bathroom Accessibility: Walker accessible Home Equipment: Cane Receives Help From: Family ADL Assistance: Independent Homemaking Assistance: Independent Homemaking Responsibilities: Yes Ambulation Assistance: Independent(cane occasionally) Transfer Assistance: Independent Active Director Patient Financial Services: Yes Mode of Transportation: Car Education: [employer] 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 Leisure & Hobbies: NA IADL Comments: NA Additional Comments: NA Objective Vision: Within Functional Limits Hearing: Exceptions to WFL Hearing Exceptions: Hard of hearing/hearing concerns Orientation Overall Orientation Status: Impaired Orientation Level: Oriented to person;Disoriented to situation;Disoriented to time;Oriented to place Observation/Palpation Posture: Fair Observation: B UE tremors Balance Sitting Balance: Minimal assistance Standing Balance: Minimal assistance(at FWW) Functional Mobility Functional - Mobility Device: Rolling Walker Activity: Other Assist Level: Minimal assistance Functional Mobility Comments: short distance at FWW with steadying assist provided throughout. Assist for FWW management. ADL Feeding: Moderate assistance;Scoop assist;Increased time to complete;Beverage management Grooming: Minimal assistance(MIN A to steady while combing hair at EOB d/t listing R) UE Bathing: Minimal assistance;Moderate assistance LE Bathing: Moderate assistance;Maximum assistance UE Dressing: Moderate assistance LE Dressing: Maximum assistance Toileting: Moderate assistance;Maximum assistance Additional Comments: pt limited by fatigue, weakness and cognitive deficits Coordination Movements Are Fluid And Coordinated: No Coordination and Movement description: Ataxia;Tremors Bed mobility Supine to Sit: Minimal assistance Sit to Supine: Minimal assistance Scooting: Contact guard assistance Comment: increased time and verbal instruction for all mobility Transfers Stand Step Transfers: Minimal assistance Sit to stand: Minimal assistance Stand to sit: Minimal assistance Transfer Comments: at FWW Cognition Overall Cognitive Status: Exceptions Arousal/Alertness: Appropriate responses to stimuli Following Commands: Follows one step commands with repetition Attention Span: Attends with cues to redirect Memory: Decreased recall of recent events;Decreased short term memory Safety Judgement: Decreased awareness of need for safety;Decreased awareness of need for assistance(bed alarm) Problem Solving: Decreased awareness of errors Insights: Decreased awareness of deficits Initiation: Requires cues for some Sequencing: Requires cues for some Sensation Overall Sensation Status: Impaired(pt reports tingling in B hands) LUE AROM (degrees) LUE AROM : WFL RUE AROM (degrees) RUE AROM : WFL LUE Strength LUE Strength Comment: debilitated, MMT not formally assessed RUE Strength RUE Strength Comment: debilitated, MMT not formally assessed Plan Plan Times per week: 4 visits Current Treatment Recommendations: Strengthening, Balance Training, Functional Mobility Training, Endurance Training, Neuromuscular Re-education, Safety Education & Training, Equipment Evaluation, Education, & procurement, Self-Care / ADL, Cognitive/Perceptual Training, Cognitive Reorientation Plan Comment: Goals and POC were established in collaboration with patient. AM-PAC Score AM-PAC Inpatient Daily Activity Raw Score: 14 (12/07/19 144) AM-PAC Inpatient ADL T-Scale Score : 33.39 (12/07/19 144) ADL Inpatient CMS 0-100% Score: 59.67 (12/07/19 144) ADL Inpatient CMS G-Code Modifier : CK (12/07/191445) Goals Short term goals Time Frame for Short term goals: 4 visits Short term goal 1: Pt will complete toileting tasks at SUP. Short term goal 2: Pt will complete LB ADLs with SUP. Short term goal 3: Pt will complete UB ADLs at SUP. Short term goal 4: Pt will complete grooming and self feeding tasks at SUP. Short term goal 5: Pt will complete functional transfers and mobility at FWW with SUP. Patient Goals Patient goals : improve ADL indep Therapy Time Individual Concurrent Group Co-treatment Time In 1417(co eval with PT) Time Out 1435 Minutes 18 Radha Cuadra OT Rachel Antunez PT - 12/07/2019 10:11 AM EDTPhysical Therapy Facility/Department: [facility] 2E TELEMETRY Initial Assessment NAME: Jagruti Ramirez : 1945 Date of Service: 12/07/2019 PT attempted assessment this AM. Pt with elevated HR and therapy held at this time per RN. Will re-attempt as appropriate. Rachel Moran PT, DPT Ray Hines DO - 12/07/2019 9:56 AM EDT Hospitalist Progress Note 12/07/2019 9:56 AM [phone]: Please page me ([phone]) for patient care issues. [phone]: Please page [facility] night Hospitalist for any issues. Subjective: Admit Date: 12/04/2019 PCP: No primary care provider on file. Room#: 253/2531 Interval History: No overnight issues. Feeling better. Denies chest pain, sob, abdominal pain, nausea, vomiting, diarrhea, constipation, fevers, or chills. DIET GENERAL; Patient Vitals for the past 96 hrs (Last 3 readings): Weight 12/05/19 0354 133 lb 2.5 oz (60.4 kg) 24HR INTAKE/OUTPUT: Intake/Output Summary (Last 24 hours) at 12/07/2019 0956 Last data filed at 12/07/2019 0800 Gross per 24 hour Intake 5146 ml Output 1000 ml Net 4146 ml Past Medical History: Diagnosis Date Diabetes mellitus (HCC) Hypertension Lower back pain Neuropathy Medications: dextrose metoprolol succinate 50 mg Oral Daily LORazepam 1 mg Intravenous Once influenza virus vaccine 0.5 mL Intramuscular Once sodium chloride flush 10 mL Intravenous 2 times per day enoxaparin 30 mg Subcutaneous Daily famotidine (PEPCID) injection 20 mg Intravenous Daily doxazosin 4 mg Oral Daily gabapentin 900 mg Oral Daily insulin lispro 0-6 Units Subcutaneous TID WC insulin lispro 0-3 Units Subcutaneous Nightly carboxymethylcellulose PF 2 drop Both Eyes TID LABS: CBC: Recent Labs 12/05/19 0023 12/06/1941612/07/19 0326 WBC 8.4 7.2 7.0 RBC 3.55* 3.04* 2.95* HGB 12.4* 10.6* 10.3* HCT 35.9* 31.2* 30.0* MCV 101.2* 102.7* 101.5* RDW 15.0* 14.6* 14.6* PLT 108* 88* 100* BMP: Recent Labs 12/05/19 0701 12/06/1941612/07/19 0326 NA 134* 135 133* K 4.4 3.8 3.6 CL 100 104 105 CO2 22 18* 20* BUN 31* 20 10 CREATININE 1.48* 0.88 0.64 GLUCOSE 98 81 103* CALCIUM 9.2 8.5 8.4 ANIONGAP 12 13 9 LIVER PROFILE: Recent Labs 12/05/19 0701 12/06/19 0417 12/07/19 0326 AST 135* 156* 110* ALT 96* 97* 85* BILITOT 1.5* 1.4* 1.2 ALKPHOS 106 98 93 LABALBU 3.8 3.5 3.2* PROT 6.9 6.4 5.8* PT/INR: Recent Labs 12/05/19 0023 PROTIME 11.2 INR 1.1 CARDIAC ENZYMES: Recent Labs 12/05/19 0023 12/05/19 0701 12/06/19416 TROPONINI 0.244* 0.394* 0.219* Procalcitonin: Lab Results Component Value Date PROCAL 0.26 12/05/2019 COVID-19 PCR: No results for input(s): COVID19 in the last 72 hours. Objective: Vitals: BP (!) 143/80 Pulse 128 Temp 97.5 F (36.4 C) (Temporal) Resp 16 Ht 5' 5 (1.651 m) Wt 133 lb 2.5 oz (60.4 kg) SpO2 96% BMI 22.16 kg/m Pulse Ox: SpO2 Av.5 % Min: 93 % Max: 98 % Supplemental O2: General appearance: No apparent distress, appears stated age and cooperative with exam HEENT: Normal cephalic, atraumatic without obvious deformity. Pupils equal, round, and reactive to light. Extra ocular muscles intact. Conjunctivae/corneas clear. Neck: Supple, with full range of motion. No jugular venous distention. Trachea midline. No lymphadenopathy. Respiratory: Normal respiratory effort. Clear to auscultation, bilaterally without Rales/Wheezes/Rhonchi. Cardiovascular: Regular rate and rhythm with normal S1/S2 without murmurs, rubs or gallops. Abdomen: Soft, non-tender, non-distended with normal bowel sounds. No rebound or guarding. Musculoskeletal: No clubbing, cyanosis or edema bilaterally. Full range of motion without deformity. Skin: Skin color, texture, turgor normal. No rashes or lesions. Neurologic: Neurovascularly intact without any focal sensory/motor deficits. Cranial nerves: II-XII intact, grossly non-focal. Assessment 1. Acute pancreatitis suspect due to alcohol abuse-improving 2. Cholelithiasis 3. Fatty liver disease 4. Transaminitis 5. Indeterminate troponin 6. Ventral hernia 7. DM2 8. HTN 9. CKD stage 2 10. Hyperkalemia-resolved Plan -advance diet -CIWA protocol -telemetry monitoring, 2D echo pending, cardiology consulted -start Toprol XL -am labs, replace lytes prn -increase activity/PT/OT eval -DVT prophylaxis: [x] Lovenox [] Heparin [] SCDs [x] Encourage ambulation [] Already on Anticoagulation Advance Directive: Full Code Discharge planning: ok to discharge if tolerating advanced diet, 2Decho results, and cards eval/recs Ray Ulrich DO Division of Hospitalist Medicine Inpatient Medical Services PAGER: [phone] Radha Carson OT - 12/07/2019 9:55 AM EDTOccupational Therapy Occupational Therapy Initial Assessment Date: 12/07/2019 Patient Name: Jagruti Ramirez : 1945 Date of Service: 12/07/2019 OT attempted assessment this AM. Pt with elevated HR and therapy held at this time per RN. Will re-attempt as appropriate. Radha Cuadra OT Ray Hines DO - 12/06/2019 11:54 AM EDT Hospitalist Progress Note 12/06/2019 11:54 AM [phone]: Please page me ([phone]) for patient care issues. [phone]: Please page [facility] night Hospitalist for any issues. Subjective: Admit Date: 12/04/2019 PCP: No primary care provider on file. Room#: 253/2531 Interval History: No overnight issues. Feeling better. Wants to eat. Denies chest pain, sob, abdominal pain, nausea, vomiting, diarrhea, constipation, fevers, or chills. DIET CLEAR LIQUID; Patient Vitals for the past 96 hrs (Last 3 readings): Weight 12/05/19 0354 133 lb 2.5 oz (60.4 kg) 24HR INTAKE/OUTPUT: No intake or output data in the 24 hours ending 12/06/19 1154 Past Medical History: Diagnosis Date Diabetes mellitus (HCC) Hypertension Lower back pain Neuropathy Medications: sodium chloride 150 mL/hr at 12/06/19 0415 dextrose LORazepam 1 mg Intravenous Once influenza virus vaccine 0.5 mL Intramuscular Once sodium chloride flush 10 mL Intravenous 2 times per day enoxaparin 30 mg Subcutaneous Daily famotidine (PEPCID) injection 20 mg Intravenous Daily doxazosin 4 mg Oral Daily gabapentin 900 mg Oral Daily insulin lispro 0-6 Units Subcutaneous TID WC insulin lispro 0-3 Units Subcutaneous Nightly carboxymethylcellulose PF 2 drop Both Eyes TID LABS: CBC: Recent Labs 12/05/192212/06/19416 WBC 8.4 7.2 RBC 3.55* 3.04* HGB 12.4* 10.6* HCT 35.9* 31.2* MCV 101.2* 102.7* RDW 15.0* 14.6* PLT 108* 88* BMP: Recent Labs 12/05/19 0023 12/05/19 0701 12/06/19416 NA 130* 134* 135 K 5.9* 4.4 3.8 CL 93* 100 104 CO2 21* 22 18* BUN 34* 31* 20 CREATININE 1.88* 1.48* 0.88 GLUCOSE 130* 98 81 CALCIUM 10.1 9.2 8.5 ANIONGAP 16 12 13 LIVER PROFILE: Recent Labs 12/05/193 12/05/19 0701 12/06/19416 AST 144* 135* 156* ALT 114* 96* 97* BILITOT 2.0* 1.5* 1.4* ALKPHOS 113 106 98 LABALBU 4.8 3.8 3.5 PROT 8.4* 6.9 6.4 PT/INR: Recent Labs 12/05/1922 PROTIME 11.2 INR 1.1 CARDIAC ENZYMES: Recent Labs 12/05/19 0023 12/05/19 0701 12/06/19 0417 TROPONINI 0.244* 0.394* 0.219* Procalcitonin: Lab Results Component Value Date PROCAL 0.26 12/05/2019 COVID-19 PCR: No results for input(s): COVID19 in the last 72 hours. Objective: Vitals: BP 133/73 Pulse 99 Temp 97.6 F (36.4 C) (Temporal) Resp 20 Ht 5' 5 (1.651 m) Wt133 lb 2.5 oz (60.4 kg) SpO2 98% BMI 22.16 kg/m Pulse Ox: SpO2 Av.5 % Min: 92 % Max: 98 % Supplemental O2: General appearance: No apparent distress, appears stated age and cooperative with exam HEENT: Normal cephalic, atraumatic without obvious deformity. Pupils equal, round, and reactive to light. Extra ocular muscles intact. Conjunctivae/corneas clear. Neck: Supple, with full range of motion. No jugular venous distention. Trachea midline. No lymphadenopathy. Respiratory: Normal respiratory effort. Clear to auscultation, bilaterally without Rales/Wheezes/Rhonchi. Cardiovascular: Regular rate and rhythm with normal S1/S2 without murmurs, rubs or gallops. Abdomen: Soft, non-tender, non-distended with normal bowel sounds. No rebound or guarding. Musculoskeletal: No clubbing, cyanosis or edema bilaterally. Full range of motion without deformity. Skin: Skin color, texture, turgor normal. No rashes or lesions. Neurologic: Neurovascularly intact without any focal sensory/motor deficits. Cranial nerves: II-XII intact, grossly non-focal. Assessment 1. Acute pancreatitis suspect due to alcohol abuse-improving 2. Cholelithiasis 3. Fatty liver disease 4. Transaminitis 5. Indeterminate troponin 6. Ventral hernia 7. DM2 8. HTN 9. CKD stage 2 10. Hyperkalemia-resolved Plan -advance diet -CIWA protocol -telemetry monitoring, 2D echo, cardiology consult -am labs, replace lytes prn -increase activity/PT/OT eval -DVT prophylaxis: [x] Lovenox [] Heparin [] SCDs [x] Encourage ambulation [] Already on Anticoagulation Advance Directive: Full Code Discharge planning: MICHELA Ulrich DO Division of Hospitalist Medicine Inpatient Medical Services PAGER: [phone] Andres Rivers, RD, LD - 12/06/2019 11:31 AM EDT Comprehensive Nutrition Assessment Type and Reason for Visit: Initial, Positive Nutrition Screen Nutrition Recommendations/Plan: 1. Currently NPO. Recommend goal of Low Fat for management of Pancreatitis symptoms. Pt is eager forhis diet to advance. 2. Hgb A1c wnl at 5.5% 3. Provided pt with diet handout on Pancreatitis Nutrition therapy from the Nutrition Care Manual. RD contact information provided for questions/concerns. 4. Pt states that he likes vanilla Ensure. Will provide vanilla Ensure high protein BID per MNT protocol once diet is progressed. Ensure High Protein provides 160 kcals, 16 g protein per serving. 5. Monitor for timely nutrition progression, wts, and labs. RD will follow. Nutrition Assessment: Pt admit for Pancreatitis. Pt admits to daily drinking (unsure exact amount) but stopped about a week ago after onset of GI symptoms. Pt has had nausea, vomiting, poor PO intake for the past week. Pt reports that he has a ravenous appetite now, and envious of his roommate who is on diet. Pt is eager for diet advancement at this time. Hgb A1c WNL despite noted hx of DM. Pt statesit's too well controlled at the moment at 79. Pt states he feels shakey and states that he feels the best when his BG is around 120. Does not appear that pt takes any DM meds at home. Malnutrition Assessment: Malnutrition Status: Insufficient data Context: Acute Illness Findings of the 6 clinical characteristics of malnutrition: Energy Intake: 7 - 50% or less of estimated energy requirements for 5 or more days Weight Loss: (Pt reports UBW 160#- however unsure exact time frame when pt weighed this much) Body Fat Loss: Unable to assess Muscle Mass Loss: Unable to assess Fluid Accumulation: No significant fluid accumulation Reflexologist Strength: Not Performed Estimated Daily Nutrient Needs: Energy (kcal): 5769-1258 kcals; Weight Used for Energy Requirements: Admission(60kg) Protein (g): 60-72; Weight Used for Protein Requirements: Admission(1-1.2) Fluid (ml/day): 8641-6882 ml/day or per MD; Weight Used for Fluid Requirements: Admission Nutrition Related Findings: no edema; CO2 18, Troponin 0.219, Hgb A1c 5.5%, Hgb 10.6, Hct 31.2, NT pro BNP 1733, +occult blood, ALT 97, AST 156, Bilirubin 1.4, Lipase 906 (from 1144, 1494), NT pro BNP 1733, Hgb 10.6, Hct 31.2, Albumin 3.5 Wounds: None Current Nutrition Therapies: Diet NPO Effective Now Exceptions are: Ice Chips, Sips with Meds Anthropometric Measures: Height: 5' 5 (165.1 cm) Current Body Weight: 137 lb (62.1 kg) Admission Body Weight: 133 lb (60.3 kg)(bed scale) Usual Body Weight: 160 lb (72.6 kg)(However, unsure exact time frame.) [place] Body Weight: 136 lbs; % [place] Body Weight 100.7 % BMI: 22.8 Adjusted Body Weight: ; No Adjustment BMI Categories: Normal Weight (BMI 22.0 to 24.9) age over 65 Nutrition Diagnosis: Inadequate energy intake related to acute injury/trauma, altered GI function as evidenced by NPO or clear liquid status due to medical condition Altered nutrition-related lab values related to acute injury/trauma, altered GI function, cardiac dysfunction as evidenced by lab values Nutrition Interventions: Food and/or Nutrient Delivery: Start Oral Diet Nutrition Education/Counseling: Education initiated Coordination of Nutrition Care: Continued Inpatient Monitoring Goals: Pt will receive/tolerate adequate nutrition within 24-72 hrs; Altered GI/labs will trend towards WNL Nutrition Monitoring and Evaluation: Behavioral-Environmental Outcomes: Beliefs and Attitutes Food/Nutrient Intake Outcomes: Diet Advancement/Tolerance Physical Signs/Symptoms Outcomes: Biochemical Data, GI Status, Nausea or Vomiting, Fluid Status or Edema, Meal Time Behavior, Skin, Weight, Nutrition Focused Physical Findings Discharge Planning: Too soon to determine Contact: *[phone] Ray Hines DO - 12/05/2019 11:33 AM EDT Hospitalist Progress Note 12/05/2019 11:33 AM [phone]: Please page me ([phone]) for patient care issues. [phone]: Please page IMS night Hospitalist for any issues. Subjective: Admit Date: 12/04/2019 PCP: No primary care provider on file. Room#: 253/253 Follow up on patient admitted after midnight. Patient admitted for: 1. Acute pancreatitis 2. Cholelithiasis 3. Fatty liver disease 4. Transaminitis 5. Ventral hernia 6. DM2 7. HTN 8. CKD stage 2 9. Hyperkalemia-resolved Past Medical History: Diagnosis Date Diabetes mellitus (HCC) Hypertension Lower back pain Neuropathy All labs, diagnostic studies, imaging, and progress notes reviewed. See orders. Ray Ulrich DO Division of Hospitalist Medicine Inpatient Medical Services PAGER: [phone] documented in this encounter Assessments Diagnosis Alcohol-induced acute pancreatitis, unsp ecified complication status Alcohol withdrawal syndrome with complic ation (HCC) Elevated troponin Other abnormal blood chemistry KEN (acute kidney injury) (HCC) Acute kidney failure, unspecified Hyponatremia Hyposmolality and/or hyponatremia Elevated brain natriuretic peptide (BNP) level Other nonspecific findings on examinatio n of blood Pancreatitis Acute pancreatitis Elevated LFTs Other abnormal blood chemistry Additional Source Comments (unrecognized section and cont ent) No Status Records FoundNo Preg blanca Status Records FoundNo Status Records FoundNo Status Records Found INFORMATION SOURCE (unrecognized section and content) DATE CREATED AUTHOR AUTHOR'S ORGANIZ ATION 10/17/2017 [facility] DATE CREATED AUTHOR AUTHOR'S ORGANIZATIO N 12/17/2019 [facility] DATE CREATED AUTHOR AUTHOR'S ORGANIZATIO N 02/12/2020 [facility] DATE CREATED AUTHOR AUTHOR'S ORGANIZATIO N 07/12/2020 [facility] Found ation ([place]) Reason for Visit (unrecognized section a nd content) Reason Comments Nausea & Vomiting FOR RECORDS PERTAINING TO PATIENTS WHO ARE OR HAVE BEEN ENROLLED IN A CHEMICAL DEPENDENCY/SUBSTANCE ABUSE PROGRAM, SOME INFORMATION MAY BE OMITTED. This clinical summary was aggregated from multiple sources. Caution should be exercised in using it in the provision of clinical care. This summary normalizes information from multiple sources, and as a consequence, information in this document may materially change the coding, format and clinical context of patient data. In addition, data may be omitted in some cases. CLINICAL DECISIONS SHOULD BE BASED ON THE PRIMARY CLINICAL RECORDS. [employer] provides no warranty or guarantee of the accuracy or completeness of information in this document.
--- NOTE | 2020-09-14 11:30 | PCM.RX.CS ---
Consult Pharmacy has been consulted to manage selected antiobiotic: Vancomycin Type of Consult: New start Suspected Infection: Skin/Soft tissue Labs: Sodium 135 mmol/L (136-145) L 09/08/20 14:12 Potassium 4.4 mmol/L (3.5-5.1) 09/08/20 14:12 Chloride 103 mmol/L (98-107) 09/08/20 14:12 Carbon Dioxide 24.0 mmol/L (21.0-32.0) 09/08/20 14:12 Anion Gap 8 (5-15) 09/08/20 14:12 BUN 16 mg/dL (7-18) 09/08/20 14:12 Creatinine 0.89 mg/dL (0.70-1.30) 09/08/20 14:12 Est GFR (MDRD) Af Amer 108 mL/min (>60) 09/08/20 14:12 Est GFR (MDRD) Non-Af 89 mL/min (>60) 09/08/20 14:12 BUN/Creatinine Ratio 18.0 RATIO (10-20) 09/08/20 14:12 Glucose 117 mg/dL (74-106) H 09/08/20 14:12 Pharmacy Plan for Drug Dosing: NEW START IV VANCOMYCIN Consulting Physician: Dr. Fenton Indication: Post-op/ SSTI Goal Trough: 10-15 SrCr: 0.89 CrCl: 62 mL/min Comments: Had 1g IV pre-op x1 administered 09/14 @0700 Vancomcyin Dose: 500mg IV Q12hr to start 09/14/20 @1900 Pending Level: 09/15/20 @1830, prior to 4th total dose per protocol Pharmacy Service will continue to monitor and adjust dosing as required.
[2020-09-14] MEDS: Docusate Sodium 100 MG Capsule PO (13:23)
[2020-09-14] MEDS: oxyCODONE 5 MG Tablet 10 MG PO ×2 (13:23→21:47)
[2020-09-14] MEDS: LORazepam 2 MG/ML Syringe 1 MG IV (13:50)
[2020-09-14] MEDS: 0.9% Normal Saline 1,000 ML 100 ML IV (13:51)
[2020-09-14] MEDS: 0.9% Saline Lock 10 ML Syringe IV ×4 (13:51→18:44)
--- NOTE | 2020-09-14 14:01 | NURSING ---
[id number] large amount of blood from dressing/onto linens. paged to come see pt.
[2020-09-14 14:49] LABS: Absolute Lymphocyte Count 1.73 X10^3/uL (0.83-4.51); Absolute Neutrophil Count 9.3 X10^3/uL (2.0-7.7); Basophil# 0.05 X10^3/uL; Basophil% 0.4 % (0-1); Eosinophils% 0.8 % (0-5); Hematocrit 32.3 % (40-54); Hemoglobin 10.7 g/dL (13.0-16.5); Lymphocyte # 1.73 X10^3/ul (0.83-4.51); Lymphocyte % 13.9 % (19-41); Mean Corp Hgb Conc 33.1 g/dL (32-36); Mean Corpuscular Hgb 31.5 pg (27.0-32.0); Mean Platelet Vol. 10.3 fl (6.2-12.0); Monocyte# 1.31 X10^3/uL; Monocyte% 10.5 % (0-10); NRBC Flagged by Analyzer 0 % (0-5); Neutrophil # 9.25 X10^3/uL (2.7-7.7); Neutrophil % 74.1 % (47-70); Platelet Count 204 K/mm3 (150-450); RBC Distribution Width CV 14.2 % (11.6-14.6); RBC Distribution Width SD 49.3 fl (35.1-43.9); White Blood Count 12.5 K/mm3 (4.4-11.0)
[2020-09-14] MEDS: HYDROmorphone 1 MG/ML Syringe IV ×2 (16:53→17:18)
--- NOTE | 2020-09-14 17:31 | PCM.PN.BLA ---
Progress Note Came up to see patient because of bleeding in his operative dressing right hip. Patient was awake and alert. Vital signs were stable. BP 118/55. Pulse 85. Postop Hgb was 10.7. Small amount of clot was removed. About 100 ml total. A couple of small muscular bleeders were identified. Hemostasis was obtained with gauze compression and silver nitrate chemical cauterization. Saline gauze compression dressing was reapplied. Will reassess tomorrow for placement of the VAC.
[2020-09-14] MEDS: Silver Nitrate (BKC) 10 EACH TOPICAL (17:33)
[2020-09-14] MEDS: Vancomycin IV 500 MG/100 ML BAG 100 MG IV (18:42)
[2020-09-14] MEDS: Ondansetron 4 MG/2 ML Vial IV (18:44)
[2020-09-14] MEDS: Atorvastatin Calcium 40 MG Tablet PO (21:58)
[2020-09-14] MEDS: Metoprolol(XL)Succ 100 MG Tablet PO (21:58)
[2020-09-14] MEDS: Gabapentin 600 MG Tablet PO (21:59)
[2020-09-14] MEDS: Doxazosin 4 MG Tablet PO (21:59)
--- NOTE | 2020-09-14 23:54 | NURSING ---
late entry -pt refusing to have dressing removed from his right ankle.
[2020-09-15] VITALS (11 sets, daily range): BP systolic 115–138; BP diastolic 43–62; PULSE 97–112; RESP 16–18; TEMP 37.1–38.7; O2SAT 88–99
[2020-09-15] MEDS: 0.9% Normal Saline 1,000 ML 100 ML IV ×2 (00:12→17:03)
[2020-09-15] MEDS: 0.9% Saline Lock 10 ML Syringe IV ×2 (04:56→18:25)
[2020-09-15] MEDS: oxyCODONE 5 MG Tablet 10 MG PO ×3 (05:23→22:17)
[2020-09-15] MEDS: Levothyroxine 25 MCG TABLET PO (05:23)
[2020-09-15] MEDS: Vancomycin IV 500 MG/100 ML BAG 100 MG IV ×2 (06:36→18:25)
[2020-09-15 06:37] LABS: Hematocrit 25.4 % (40-54); Hemoglobin 8.3 g/dL (13.0-16.5); Mean Corp Hgb Conc 32.7 g/dL (32-36); Mean Corpuscular Hgb 32.2 pg (27.0-32.0); Mean Corpuscular Volume 98.4 fL (80-94); Mean Platelet Vol. 10.7 fl (6.2-12.0); Platelet Count 169 K/mm3 (150-450); RBC Distribution Width CV 14.5 % (11.6-14.6); RBC Distribution Width SD 52.2 fl (35.1-43.9); Red Blood Count 2.58 M/mm3 (4.6-6.2); White Blood Count 9.4 K/mm3 (4.4-11.0)
[2020-09-15 07:22] LABS: ALB/GLOB Ratio 0.9 RATIO (0.9-2.4); AST(SGOT) 15 U/L (15-37); Alanine Aminotransfer ALT/SGPT 17 U/L (16-61); Albumin, Serum 2.5 g/dL (3.2-5.0); Alkaline Phosphatase 71 U/L (45-117); Anion Gap 5 (5-15); BUN 17 mg/dL (7-18); BUN/Creat Ratio 15.9 RATIO (10-20); Calcium,Total 7.2 mg/dL (8.5-10.1); Chloride 106 mmol/L (98-107); Creatinine, Serum 1.07 mg/dL (0.70-1.30); EST Glomerular Filtration Rate 72 mL/min (>60); Est Glom Filt Rate - Afr Amer 87 mL/min (>60); Estimated Creatinine Clearance 51.48 ml/min; Globulin 2.7 g/dL (2.2-4.2); Glucose 202 mg/dL (74-106); Potassium 3.9 mmol/L (3.5-5.1); Prealbumin 18.1 mg/dL (20.0-40.0); Protein, Total 5.2 g/dL (6.4-8.2); Sodium Level 138 mmol/L (136-145)
[2020-09-15 07:48] LABS: Erythrocyte Sedimentation Rate 5 mm/hr (0-20)
--- NOTE | 2020-09-15 09:48 | CASEMGMT ---
NANCY GARCIA Assessment: Face to Face with pt for initial transition planning/care coordination assessment. NANCY GARCIA introduced self and role at [facility], pt voices understanding and consents to assessment. Pt is A/O x4 and answers all questions appropriately at this time. Care providers, pharmacy, and demographics verified/updated. Admitting Dx: excision trochanteric pressure sore PCP:Juan Diego Specialists:Toni at wound center Preferred Pharmacy: [facility] Retail Insurance: MedWhat Prescription Benefit: yes LW/HPOA: Pt states he thinks Maury Barriga is his DPOA and that he has a LW. He is aware that it is not on file and he may bring to get scanned into the chart. LNOK: marianne Gamble, dtr; Chris Stover, grandson, Maury and Jessica Barriga, friends Living Arrangements: Pt lives with Dannie Barriga in a two story house with 2 steps to enter with a rail. Pt states he sponge bathes himself and is able to dress himself independently. Pt denies concerns at home. Transportation: Pt does not drive. He states Maury transports him to medical appts. DME/HHC/SNF: Pt has a w/c, 2 walkers one that is upstairs and one that is downstairs, BSC and canes. Pt is active with [facility]. He has been to [facility] and [facility]. Pt states no concerns with going home at time of dc. Pt states no further concerns/needs. CM to follow. Advised pt to ask CM if any further question/concerns/needs arise, voices understanding. Pt Goal: Home with resumption of HHC Plan: Home with resumption of HHC through [facility] TC to Salena at [facility] to verify pt is active with their services. She states pt is and he is being seen from the [place] office. They are able to accept pt back. Will fax referral info when completed. .
[2020-09-15] MEDS: HYDROmorphone 1 MG/ML Syringe IV (10:13)
--- NOTE | 2020-09-15 10:22 | PCM.PN.SRG ---
Subjective Subjective Postop #1 Patient is resting comfortably. Had postop bleeding yesterday that required gauze compression and silver nitrate chemical cauterization. Objective Data Objective Data Vital Signs: Vital Signs Temp Pulse Resp BP Pulse Ox 99.6 F H 105 H 16 138/59 H 93 09/15/20 10:06 09/15/20 10:06 09/15/20 10:06 09/15/20 10:06 09/15/20 10:06 Temp 101.6 @ 1532. Oxygen Flow Rate (L/min) 2 Oxygen Delivery Method Room Air Weight: 153 lb 3.54 oz Body Mass Index (BMI) 26.3 Intake & Output: Intake and Output for Last 24 Hours 09/13/20 09/14/20 09/15/20 23:59 23:59 23:59 Intake Total 2506.625 / 2506.625 1541.58 / 1541.58 Output Total 800 / 800 500 / 500 Balance 1706.625 / 6975.612 7204.58 / 1041.58 Lab / Micro Data Attestation: I reviewed the patient's lab results. Result Diagrams: 09/17/20 06:05 09/17/20 06:05 Labs: Laboratory Results - last 24 hr 09/14/20 14:35: WBC 12.5 H, RBC 3.40 L, Hgb 10.7 L, Hct 32.3 L, MCV 95.0 H, MCH 31.5, MCHC 33.1, RDW Std Deviation 49.3 H, RDW Coeff of Ed 14.2, Plt Count 204, MPV 10.3, Immature Gran % (Auto) 0.300, Neut % (Auto) 74.1 H, Lymph % (Auto) 13.9 L, [place] % (Auto) 10.5 H, Eos % (Auto) 0.8, Baso % (Auto) 0.4, Absolute Neuts (auto) 9.3 H, Absolute Lymphs (auto) 1.73, Nucleated RBC % 0 09/15/20 06:20: WBC 9.4, RBC 2.58 L, Hgb 8.3 L, Hct 25.4 L, MCV 98.4 H, MCH 32.2 H, MCHC 32.7, RDW Std Deviation 52.2 H, RDW Coeff of Ed 14.5, Plt Count 169, MPV 10.7, ESR 5 09/15/20 06:20: Sodium 138, Potassium 3.9, Chloride 106, Carbon Dioxide 27.0, Anion Gap 5, BUN 17, Creatinine 1.07, Estim Creat Clear Calc 51.48, Est GFR (MDRD) Af Amer 87, Est GFR (MDRD) Non-Af 72, BUN/Creatinine Ratio 15.9, Glucose 202 H, Calcium 7.2 L, Total Bilirubin 0.20, AST 15, ALT 17, Alkaline Phosphatase 71, C-React Prot Ext Range 47.50 H, Total Protein 5.2 L, Albumin 2.5 L, Globulin 2.7, Albumin/Globulin Ratio 0.9, Prealbumin 18.1 L Urinalysis from 09/15/20 was normal. Micro: Microbiology 09/14/20 09:00 Bone - Hip Gram Stain - Final Preliminary culture - Gram negative allan. 09/14/20 09:00 Tissue - Hip Gram Stain - Final Radiography Diagnostic Testing: RAD/Chest 1 View (Portable) IMPRESSION: Normal x-ray examination of the chest. Electronically Signed: Allen Deal MD at 17:08 EDT Tel , Service support , Physical Exam Narrative General - Alert and Oriented HEENT - PERRL. EOMI. Abdomen - Soft and nondistended. Extremities -On the right hip area is a trochanteric pressure sore. Dressing removed today. Some blood staining seen. No active bleeding noted in the wound. VAC applied today. Wound was tender to palpation. Neuro - CN II-XII grossly intact. Psych - Normal mood and affect. Assessment & Plan Assessment/Plan (1) Decubitus ulcer of right hip, stage 4: (2) Diabetes: (3) Stroke: (4) History of MRSA infection: (5) Smoker: (6) Acute postoperative anemia due to expected blood loss: (7) Postoperative fever: PLAN: Patient had postoperative bleeding yesterday. Obtained control with gauze compression and silver nitrate chemical cauterization. Hgb yesterday was 10.7. Today it was 8.3. Patient has acute postoperative anemia due to expected blood loss. Will monitor. Iron supplementation was ordered. Will recheck a Hgb tomorrow. If it drops below 8, will transfuse PRBC. Some of the decrease was also due to IV dilution. His I's/O's are positive 2.7 liters. Wound was stable this morning. No active bleeding noted. VAC applied today. Prealbumin was 18.1. Encourage nutritional supplementation with protein to help the healing process. Patient had a postoperative fever yesterday of 101.6. WBC was 9.4. CXR was done which was normal. Urinalysis was done which was normal. Preliminary bone culture showed Gram negative rods. Presently on Vancomycin and Zosyn. He is not ready to go home today due to his fever and his decreased Hgb. This needs to stabilize before discharge. Continue incentive spirometry. HgbA1c from 09/08/20 was 6.0. Encouraged patient to stop smoking as it may have deleterious effects on wound healing.
--- NOTE | 2020-09-15 11:54 | NURSING ---
wound photo: right hip
[2020-09-15] MEDS: Iron Polysaccharide Complex 150 MG CAPSULE PO (12:13)
--- NOTE | 2020-09-15 13:35 | CASEMGMT ---
RN JOSE NOTE: Intro role of CM to patient and JOSEPH form explained re: Observation status for treatment of right trochanteric pressure sore, Stage IV. Explained hospitalization will be paid per her insurance policy for Outpatient billing and condition will continue to be evaluated for Inpt necessity. Also let pt know that [facility] sends paper in the billing packet with their phone number if questions arise. Discussed Pharmacy section of JOSEPH form and self administered medication guideline. Pt verbalizes understanding and does not have further questions. Form signed, copy made and placed in chart, and original given to pt. Serg HAYDEN RN CM
--- NOTE | 2020-09-15 15:26 | CASEMGMT ---
Awaiting vac approval. Green sheet placed on chart with referral info to be faxed to [facility] ([place]) and the need for dc instructions/summary to be added.
--- NOTE | 2020-09-15 16:55 | RAD_ITS ---
STUDY: X-RAY CHEST REASON FOR EXAM: Male, 75 years old. fever TECHNIQUE: Single AP portable view of the chest. COMPARISON: None. FINDINGS: The lungs are clear and expanded. There is no demonstrated pleural abnormality. Normal size heart. Normal mediastinum and gillian. Normal visualized pulmonary arteries. Normal visualized aortic arch and descending thoracic aorta. Normal visualized thoracic spine. Normal visualized ribs, clavicles, and shoulders. There is no demonstrated abnormality of the visualized soft tissue structures of the upper abdomen. RAD/Chest 1 View (Portable) IMPRESSION: Normal x-ray examination of the chest. Electronically Signed: Allen Deal MD at 17:08 EDT Tel , Service support ,
[2020-09-15] MEDS: Acetaminophen 325 MG Tablet 650 MG PO (17:03)
--- NOTE | 2020-09-15 19:57 | PCM.RX.CS ---
Consult Pharmacy has been consulted to manage selected antiobiotic: Vancomycin Type of Consult: Follow-up Suspected Infection: Skin/Soft tissue Labs: Sodium 138 mmol/L (136-145) 09/15/20 06:20 Potassium 3.9 mmol/L (3.5-5.1) 09/15/20 06:20 Chloride 106 mmol/L (98-107) 09/15/20 06:20 Carbon Dioxide 27.0 mmol/L (21.0-32.0) 09/15/20 06:20 Anion Gap 5 (5-15) 09/15/20 06:20 BUN 17 mg/dL (7-18) 09/15/20 06:20 Creatinine 1.07 mg/dL (0.70-1.30) 09/15/20 06:20 Est GFR (MDRD) Af Amer 87 mL/min (>60) 09/15/20 06:20 Est GFR (MDRD) Non-Af 72 mL/min (>60) 09/15/20 06:20 BUN/Creatinine Ratio 15.9 RATIO (10-20) 09/15/20 06:20 Glucose 202 mg/dL (74-106) H 09/15/20 06:20 Vancomycin Trough 8.0 ug/mL (5.0-15.0) 09/15/20 18:16 Microbiology: Microbiology 09/14/20 09:00 Bone - Hip Gram Stain - Final 09/14/20 09:00 Bone - Hip Wound Culture - Preliminary GNR lactose conference and event organiser 09/14/20 09:00 Bone - Hip Anaerobic Culture - Preliminary 09/14/20 09:00 Tissue - Hip Gram Stain - Final 09/14/20 09:00 Tissue - Hip Wound Culture - Preliminary No growth-Final to follow Pharmacy Plan for Drug Dosing: VANCOMYCIN LEVEL RECEIVED Current Vancomycin Dose: 500MG Q12H Number of Doses Received: 500MG X3 (1 DOSE AFTER TROUGH WAS DRAWN), 1000MG X1 Vancomycin Level: 8 MG/DL Hours Since Last Dose: 12 Renal Function: SCR 1.07, CRCL 52 ML/MIN Renal Function Trend: SLIGHTLY INCREASED Lab/Micro: MANY CULTURES STILL PENDING, WOUND CX PRELIM GNR Vancomycin Plan/Comments: 12 HOUR VANCOMYCIN LEVEL OF 8 MG/DL BELOW GOAL OF 10-15. THIS EVENING'S DOSE WAS HUNG AT 1825. WILL INCREASE DOSE TO 750MG Q12 STARTING TOMORROW @ 0600 AND GET A TROUGH PRIOR TO 4TH DOSE OF NEW REGIMEN. Pending Level: 09/17/20 @ 5115 Pharmacy Service will continue to monitor and adjust dosing as required.
[2020-09-15 20:54] LABS: Bacteria 0 SEEN /hpf (None Seen); Mucous, Urine 0 SEEN /hpf (<or=2+); Red Blood Cells-Urine 0 SEEN /hpf (0-5); Squamous Epithelial Cells - UA 0 SEEN /hpf (0-5); White Blood Cells 0 SEEN /hpf (0-5)
[2020-09-15 20:56] LABS: Color, Urine Yellow (Yellow); Glucose, Dipstick Normal (Normal); Ketone-Dipstick Negative (Negative); Leukocyte Esterase-Dipstick Negative /ul (Negative); Nitrite-Dipstick Negative (Negative); Occult Blood-Urine Negative /ul (Negative); Protein-Dipstick Negative (Negative); Urine Bilirubin Dipstick Negative (Negative); Urine Clarity Clear (Clear); Urine Urobilinogen Normal (Normal); Urine pH 6.5 (5.0 - 8.0)
[2020-09-15] MEDS: Metoprolol(XL)Succ 100 MG Tablet PO (21:47)
[2020-09-15] MEDS: Doxazosin 4 MG Tablet PO (21:47)
[2020-09-15] MEDS: Gabapentin 600 MG Tablet PO (21:47)
[2020-09-15] MEDS: Atorvastatin Calcium 40 MG Tablet PO (21:47)
[2020-09-16] MEDS: 0.9% Normal Saline 1,000 ML 100 ML IV ×3 (02:32→23:08)
[2020-09-16 02:35] VITALS: BP 107/45; PULSE 85; RESP 16; TEMP 37.3; O2SAT 97
[2020-09-16] MEDS: Enoxaparin 40 MG/0.4 ML Syringe SC (06:29)
[2020-09-16] MEDS: Levothyroxine 25 MCG TABLET PO (06:29)
[2020-09-16 07:34] LABS: Hematocrit 24.6 % (40-54); Mean Corp Hgb Conc 32.5 g/dL (32-36); Mean Corpuscular Hgb 31.7 pg (27.0-32.0); Mean Corpuscular Volume 97.6 fL (80-94); Mean Platelet Vol. 11.5 fl (6.2-12.0); Platelet Count 163 K/mm3 (150-450); RBC Distribution Width SD 49.6 fl (35.1-43.9); Red Blood Count 2.52 M/mm3 (4.6-6.2); White Blood Count 10.4 K/mm3 (4.4-11.0)
[2020-09-16 07:35] VITALS: BP 111/42; PULSE 99; RESP 18; TEMP 38.1; O2SAT 95
[2020-09-16] MEDS: Iron Polysaccharide Complex 150 MG CAPSULE PO (07:39)
[2020-09-16] MEDS: oxyCODONE 5 MG Tablet 10 MG PO (07:42)
[2020-09-16] MEDS: Acetaminophen 325 MG Tablet 650 MG PO ×2 (07:43→16:05)
[2020-09-16 07:52] LABS: Anion Gap 5 (5-15); BUN 13 mg/dL (7-18); BUN/Creat Ratio 19.9 RATIO (10-20); Calcium,Total 8.2 mg/dL (8.5-10.1); Chloride 107 mmol/L (98-107); Creatinine, Serum 0.65 mg/dL (0.70-1.30); EST Glomerular Filtration Rate 127 mL/min (>60); Est Glom Filt Rate - Afr Amer 154 mL/min (>60); Estimated Creatinine Clearance 55.09 ml/min; Glucose 134 mg/dL (74-106); Potassium 4.1 mmol/L (3.5-5.1); Sodium Level 137 mmol/L (136-145)
[2020-09-16 13:59] VITALS: BP 147/59; PULSE 100; RESP 16; TEMP 37.2; O2SAT 97
[2020-09-16 15:21] VITALS: O2SAT 96
[2020-09-16] MEDS: LORazepam 1 MG Tablet PO (15:43)
[2020-09-16] MEDS: proMETHazine 25 MG Tablet PO (17:27)
--- NOTE | 2020-09-16 20:43 | PN.SURG_ITS ---
Subjective Subjective Postop #2 Patient is resting comfortably. VAC in place. Minimal drainage in the canister. Objective Data Objective Data Vital Signs: Vital Signs Temp Pulse Resp BP Pulse Ox 99.0 F 100 16 147/59 H 96 09/16/20 13:59 09/16/20 13:59 09/16/20 13:59 09/16/20 13:59 09/16/20 15:21 Temp 100.5 @ 735. Oxygen Flow Rate (L/min) 2 Oxygen Delivery Method Room Air Weight: 153 lb 3.54 oz Body Mass Index (BMI) 26.3 Intake & Output: Intake and Output for Last 24 Hours 09/14/20 09/15/20 09/16/20 23:59 23:59 23:59 Intake Total 2506.625 / 2506.625 3178.41 / 3178.41 3106.41 / 3106.41 Output Total 800 / 800 2200 / 2200 1150 / 1150 Balance 1706.625 / 1706.625 978.41 / 978.41 1956.41 / 1956.41 Medical Nutrition Assessment Dietitian: Nutrition Therapy Diagnosis Start: 09/15/20 13:15 Freq: Status: Active Protocol: Document 09/15/20 13:16 COLTON (Rec: 09/15/20 13:16 SLA [id number]) Nutrition Malnutrition Evidence of Malnutrition Exists No Intake Problem Increased Nutrient Needs (specify) Etiology (protein) r/t wounds Signs/Symptoms as evidenced by right foot pressure injury, right hip 4x7 .5x6.2 pressure injury, and need for wound vac on right hip. Status Active Problem Recommendation Dietitian Recommendations/Changes Change diet to consistent carbohydrate diet. Continue 1 pkt orange Baldemar PO BID. D/c glucerna at meals. Lab / Micro Data Attestation: I reviewed the patient's lab results. Result Diagrams: 09/17/20 06:05 09/17/20 06:05 Labs: Laboratory Results - last 24 hr 09/15/20 19:53: Urine Color Yellow, Urine Clarity Clear, Urine pH 6.5, Ur Specific Mcconnell 1.010, Urine Protein Negative, Urine Glucose (UA) Normal, Urine Ketones Negative, Urine Occult Blood Negative, Urine Nitrite Negative, Urine Bilirubin Negative, Urine Urobilinogen Normal, Ur Leukocyte Esterase Negative, Urine RBC 0 SEEN, Urine WBC 0 SEEN, Ur Squamous Epith Cells 0 SEEN, Urine Bacteria 0 SEEN, Urine Mucus 0 SEEN 09/16/20 06:36: WBC 10.4, RBC 2.52 L, Hgb 8.0 L, Hct 24.6 L, MCV 97.6 H, MCH 31.7, MCHC 32.5, RDW Std Deviation 49.6 H, RDW Coeff of Ed 14.0, Plt Count 163, MPV 11.5 09/16/20 06:36: Sodium 137, Potassium 4.1, Chloride 107, Carbon Dioxide 25.0, Anion Gap 5, BUN 13, Creatinine 0.65 L, Estim Creat Clear Calc 55.09, Est GFR (MDRD) Af Amer 154, Est GFR (MDRD) Non-Af 127, BUN/Creatinine Ratio 19.9, Glucose 134 H, Calcium 8.2 L Micro: Microbiology 09/14/20 09:00 Bone - Hip Gram Stain - Final 09/14/20 09:00 Bone - Hip Wound Culture - Preliminary Escherichia coli 09/14/20 09:00 Tissue - Hip Gram Stain - Final 09/14/20 09:00 Tissue - Hip Wound Culture - Preliminary No growth-Final to follow Physical Exam Narrative General - Alert and Oriented HEENT - PERRL. EOMI. Abdomen - Soft and nondistended. Extremities -On the right hip area is a trochanteric pressure sore. VAC in place. Minimal drainage in the canister. Neuro - CN II-XII grossly intact. Psych - Normal mood and affect. Assessment & Plan Assessment/Plan (1) Decubitus ulcer of right hip, stage 4: (2) Stroke: (3) Diabetes: (4) History of MRSA infection: (5) Acute postoperative anemia due to expected blood loss: (6) Postoperative fever: (7) Smoker: PLAN: Hgb dipped to 8.0 from 8.3 yesterday. Patient has acute postoperative anemia due to expected blood loss. Will monitor. Continue iron supplementation. Will recheck a Hgb tomorrow. If it drops below 8, will transfuse PRBC. Some of the decrease was also due to IV dilution. His I's/O's are positive 4.[address] Minimal drainage noted in the canister. No active bleeding noted. Prealbumin was 18.1. Encourage nutritional supplementation with protein to help the healing process. Patient has a postoperative fever with a Tmax of 100.5 @ 735. This is a decrease from the Tmax yesterday of 101.6 @ 1532. WBC normal at 10.4. CXR was done which was normal. Urinalysis was done which was normal. Preliminary bone culture shows E. coli. Presently on Vancomycin and Zosyn. He is not ready to go home today due to his fever, which is improving, and his decreased Hgb. This needs to stabilize before discharge. Continue incentive spirometry. HgbA1c from 09/08/20 was 6.0. Encouraged patient to stop smoking as it may have deleterious effects on wound healing.
[2020-09-16] MEDS: Doxazosin 4 MG Tablet PO (23:07)
[2020-09-16 23:08] VITALS: PULSE 98
[2020-09-16] MEDS: Metoprolol(XL)Succ 100 MG Tablet PO (23:08)
[2020-09-16] MEDS: Gabapentin 600 MG Tablet PO (23:08)
[2020-09-16] MEDS: Atorvastatin Calcium 40 MG Tablet PO (23:08)
[2020-09-16 23:32] VITALS: BP 140/59; PULSE 98; RESP 16; TEMP 37.1; O2SAT 93
[2020-09-17] MEDS: Enoxaparin 40 MG/0.4 ML Syringe SC (04:57)
[2020-09-17] MEDS: Levothyroxine 25 MCG TABLET PO (04:57)
[2020-09-17 05:08] VITALS: BP 154/69; PULSE 93; RESP 16; TEMP 37.2; O2SAT 93
[2020-09-17] MEDS: oxyCODONE 5 MG Tablet 10 MG PO ×2 (06:11→15:01)
[2020-09-17] MEDS: Acetaminophen 325 MG Tablet 650 MG PO ×3 (06:12→20:55)
--- NOTE | 2020-09-17 06:51 | NURSING ---
pt aware of activity order but insisted on getting up to his wheelchair states only his chair will help his back discomfort. pain meds taken. call light in reach
[2020-09-17 06:53] LABS: Hematocrit 24.8 % (40-54); Hemoglobin 8.1 g/dL (13.0-16.5); Mean Corp Hgb Conc 32.7 g/dL (32-36); Mean Corpuscular Hgb 31.5 pg (27.0-32.0); Mean Corpuscular Volume 96.5 fL (80-94); Mean Platelet Vol. 10.9 fl (6.2-12.0); Platelet Count 179 K/mm3 (150-450); RBC Distribution Width CV 13.7 % (11.6-14.6); RBC Distribution Width SD 48.5 fl (35.1-43.9); Red Blood Count 2.57 M/mm3 (4.6-6.2); White Blood Count 9.9 K/mm3 (4.4-11.0)
[2020-09-17 07:11] LABS: Anion Gap 5 (5-15); BUN 12 mg/dL (7-18); BUN/Creat Ratio 19.7 RATIO (10-20); Calcium,Total 8.5 mg/dL (8.5-10.1); Chloride 112 mmol/L (98-107); Creatinine, Serum 0.61 mg/dL (0.70-1.30); EST Glomerular Filtration Rate 138 mL/min (>60); Est Glom Filt Rate - Afr Amer 167 mL/min (>60); Estimated Creatinine Clearance 55.09 ml/min; Glucose 143 mg/dL (74-106); Potassium 3.5 mmol/L (3.5-5.1); Sodium Level 141 mmol/L (136-145)
[2020-09-17 09:09] VITALS: BP 157/67; PULSE 88; RESP 16; TEMP 37; O2SAT 97
[2020-09-17] MEDS: Iron Polysaccharide Complex 150 MG CAPSULE PO (09:11)
[2020-09-17] MEDS: proMETHazine 25 MG Tablet PO (13:09)
[2020-09-17 14:53] VITALS: BP 155/73; PULSE 96; RESP 18; TEMP 37.5; O2SAT 97
--- NOTE | 2020-09-17 15:07 | NURSING ---
pt agreeable to allow this nurse to take down his drsg to his rt ankle. will allow pain meds to take effect and then procede
[2020-09-17 17:35] VITALS: O2SAT 96
[2020-09-17 17:46] LABS: Vancomycin, Trough Level 12.9 ug/mL (5.0-15.0)
--- NOTE | 2020-09-17 18:00 | PCM.RX.CS ---
Consult Pharmacy has been consulted to manage selected antiobiotic: Vancomycin Type of Consult: Follow-up Suspected Infection: Skin/Soft tissue Prior Doses of Antibiotics Received/Current Regimen: current regimen is 750mg IV q12h Labs: Sodium 141 mmol/L (136-145) 09/17/20 06:05 Potassium 3.5 mmol/L (3.5-5.1) 09/17/20 06:05 Chloride 112 mmol/L (98-107) H 09/17/20 06:05 Carbon Dioxide 24.0 mmol/L (21.0-32.0) 09/17/20 06:05 Anion Gap 5 (5-15) 09/17/20 06:05 BUN 12 mg/dL (7-18) 09/17/20 06:05 Creatinine 0.61 mg/dL (0.70-1.30) L 09/17/20 06:05 Est GFR (MDRD) Af Amer 167 mL/min (>60) 09/17/20 06:05 Est GFR (MDRD) Non-Af 138 mL/min (>60) 09/17/20 06:05 BUN/Creatinine Ratio 19.7 RATIO (10-20) 09/17/20 06:05 Glucose 143 mg/dL (74-106) H 09/17/20 06:05 Vancomycin Trough 12.9 ug/mL (5.0-15.0) 09/17/20 17:15 Microbiology: Microbiology 09/14/20 09:00 Bone - Hip Gram Stain - Final 09/14/20 09:00 Bone - Hip Wound Culture - Preliminary Escherichia coli 09/14/20 09:00 Tissue - Hip Gram Stain - Final 09/14/20 09:00 Tissue - Hip Wound Culture - Preliminary No growth-Final to follow Weight used for dosin.5 kg Estimated Creatinine Clearance: 55ml/min Goal Trough: 10-15 mcg/mL Pharmacy Plan for Drug Dosing: The vanc trough drawn this evening was 12.9 (drawn about 12 hours after the previous dose). This is within goal range so will keep same dosing. Will check the trough again in 3 days. Pharmacy Service will continue to monitor and adjust dosing as required. Follow-Up Labs: Trough Vancomycin Labs to be done on [date and time ordered]: 09/20/20 at 17:30
--- NOTE | 2020-09-17 18:53 | PCM.PN.SRG ---
Subjective Subjective Postop #3 Patient is resting comfortably. VAC in place. Minimal drainage in the canister. Objective Data Objective Data Vital Signs: Vital Signs Temp Pulse Resp BP Pulse Ox 99.5 F H 96 18 155/73 H 96 09/17/20 14:53 09/17/20 14:53 09/17/20 14:53 09/17/20 14:53 09/17/20 17:35 Oxygen Flow Rate (L/min) 2 Oxygen Delivery Method Room Air Weight: 153 lb 3.54 oz Body Mass Index (BMI) 26.3 Intake & Output: Intake and Output for Last 24 Hours 09/15/20 09/16/20 09/17/20 23:59 23:59 23:59 Intake Total 3178.41 / 3178.41 4066.41 / 4066.41 1850.01 / 1850.01 Output Total 2200 / 2200 2350 / 2350 1999 / 1999 Balance 978.41 / 978.41 1716.41 / 1716.41 -149.99 / -149.99 Medical Nutrition Assessment Dietitian: Nutrition Therapy Diagnosis Start: 09/15/20 13:15 Freq: Status: Active Protocol: Document 09/15/20 13:16 SLA (Rec: 09/15/20 13:16 SLA [id number]) Nutrition Malnutrition Evidence of Malnutrition Exists No Intake Problem Increased Nutrient Needs (specify) Etiology (protein) r/t wounds Signs/Symptoms as evidenced by right foot pressure injury, right hip 4x7 .5x6.2 pressure injury, and need for wound vac on right hip. Status Active Problem Recommendation Dietitian Recommendations/Changes Change diet to consistent carbohydrate diet. Continue 1 pkt orange Baldemar PO BID. D/c glucerna at meals. Lab / Micro Data Attestation: I reviewed the patient's lab results. Result Diagrams: 09/17/20 06:05 09/17/20 06:05 Labs: Laboratory Results - last 24 hr 09/17/20 06:05: WBC 9.9, RBC 2.57 L, Hgb 8.1 L, Hct 24.8 L, MCV 96.5 H, MCH 31.5, MCHC 32.7, RDW Std Deviation 48.5 H, RDW Coeff of Ed 13.7, Plt Count 179, MPV 10.9 09/17/20 06:05: Sodium 141, Potassium 3.5, Chloride 112 H, Carbon Dioxide 24.0, Anion Gap 5, BUN 12, Creatinine 0.61 L, Estim Creat Clear Calc 55.09, Est GFR (MDRD) Af Amer 167, Est GFR (MDRD) Non-Af 138, BUN/Creatinine Ratio 19.7, Glucose 143 H, Calcium 8.5 09/17/20 17:15: Vancomycin Trough 12.9 Micro: Microbiology 09/14/20 09:00 Bone - Hip Gram Stain - Final 09/14/20 09:00 Bone - Hip Wound Culture - Preliminary Escherichia coli 09/14/20 09:00 Tissue - Hip Gram Stain - Final 09/14/20 09:00 Tissue - Hip Wound Culture - Preliminary No growth-Final to follow Physical Exam Narrative General - Alert and Oriented HEENT - PERRL. EOMI. Abdomen - Soft and nondistended. Extremities -On the right hip area is a trochanteric pressure sore. VAC in place. Minimal drainage in the canister. Neuro - CN II-XII grossly intact. Psych - Normal mood and affect. Assessment & Plan Assessment/Plan (1) Decubitus ulcer of right hip, stage 4: (2) Diabetes: (3) Stroke: (4) History of MRSA infection: (5) Smoker: (6) Acute postoperative anemia due to expected blood loss: (7) Postoperative fever: PLAN: Hgb has stabilized at 8.1 compared to 8.0 yesterday. Patient has acute postoperative anemia due to expected blood loss. Will monitor. Continue iron supplementation. Will recheck a Hgb tomorrow. If it drops below 8, will transfuse PRBC. Some of the decrease was also due to IV dilution. His I's/O's are positive 4.[address] Minimal drainage noted in the canister. No active bleeding noted. VAC will be changed tomorrow. It has been approved. Prealbumin was 18.1. Encourage nutritional supplementation with protein to help the healing process. Patient has a postoperative fever with a Tmax of 99.5 @ 1453. This is a decrease from the Tmax yesterday of 100.5 @ 735 and 2 days ago the Tmax was 101.6 @ 1532 The postoperative fever is resolving as the Tmax each day has been less than the day before. WBC normal at 9.9. CXR was done which was normal. Urinalysis was done which was normal. Preliminary bone culture shows E. coli. Presently on Vancomycin and Zosyn. If temperature continues to normalize, can discharge on po Levaquin. Pathology is pending. He is not ready to go home today due to his fever, which is improving, and his decreased Hgb which has stabilized. This needs to stabilize before discharge. Patient states he has issues with anemia in the past and he takes Iron supplementation at home. Continue incentive spirometry. HgbA1c from 09/08/20 was 6.0. If his temperature remains less than 100, anticipate discharge home tomorrow. Encouraged patient to stop smoking as it may have deleterious effects on wound healing.
[2020-09-17] MEDS: Gabapentin 600 MG Tablet PO (20:55)
[2020-09-17] MEDS: LORazepam 1 MG Tablet PO (20:55)
[2020-09-17] MEDS: Atorvastatin Calcium 40 MG Tablet PO (20:55)
[2020-09-17 20:56] VITALS: PULSE 104
[2020-09-17] MEDS: Doxazosin 4 MG Tablet PO (20:56)
[2020-09-17] MEDS: Metoprolol(XL)Succ 100 MG Tablet PO (20:56)
[2020-09-17 21:06] VITALS: BP 159/65; PULSE 104; RESP 18; TEMP 37.2; O2SAT 97
[2020-09-18] VITALS (9 sets, daily range): BP systolic 117–154; BP diastolic 48–80; PULSE 74–98; RESP 16–18; TEMP 36.3–37.9; O2SAT 94–97
[2020-09-18] MEDS: 0.9% Normal Saline 1,000 ML 100 ML IV (02:14)
[2020-09-18] MEDS: Enoxaparin 40 MG/0.4 ML Syringe SC (05:01)
[2020-09-18] MEDS: Levothyroxine 25 MCG TABLET PO (05:01)
[2020-09-18] MEDS: oxyCODONE 5 MG Tablet 10 MG PO ×3 (06:31→20:50)
[2020-09-18] MEDS: Acetaminophen 325 MG Tablet 650 MG PO ×2 (06:32→20:50)
[2020-09-18 06:51] LABS: Hematocrit 26.1 % (40-54); Hemoglobin 8.7 g/dL (13.0-16.5); Mean Corp Hgb Conc 33.3 g/dL (32-36); Mean Corpuscular Hgb 31.9 pg (27.0-32.0); Mean Corpuscular Volume 95.6 fL (80-94); Mean Platelet Vol. 11.2 fl (6.2-12.0); Platelet Count 207 K/mm3 (150-450); RBC Distribution Width CV 13.8 % (11.6-14.6); RBC Distribution Width SD 48.1 fl (35.1-43.9); Red Blood Count 2.73 M/mm3 (4.6-6.2); White Blood Count 11.6 K/mm3 (4.4-11.0)
[2020-09-18 07:16] LABS: Anion Gap 5 (5-15); BUN 13 mg/dL (7-18); BUN/Creat Ratio 21.9 RATIO (10-20); Calcium,Total 9.1 mg/dL (8.5-10.1); Chloride 109 mmol/L (98-107); Creatinine, Serum 0.59 mg/dL (0.70-1.30); EST Glomerular Filtration Rate 142 mL/min (>60); Est Glom Filt Rate - Afr Amer 172 mL/min (>60); Estimated Creatinine Clearance 55.09 ml/min; Glucose 134 mg/dL (74-106); Potassium 3.4 mmol/L (3.5-5.1); Sodium Level 139 mmol/L (136-145)
[2020-09-18] MEDS: Iron Polysaccharide Complex 150 MG CAPSULE PO (08:06)
[2020-09-18] MEDS: HYDROmorphone 1 MG/ML Syringe IV (09:56)
[2020-09-18] MEDS: 0.9% Saline Lock 10 ML Syringe IV ×2 (09:57→23:16)
[2020-09-18] MEDS: LORazepam 1 MG Tablet PO (10:20)
[2020-09-18] MEDS: proMETHazine 25 MG Tablet PO ×2 (11:18→23:25)
[2020-09-18] MEDS: DAKIN'S SOL HALF STRENGTH (=0.25%) 1 APPLIC TOPICAL (11:39)
--- NOTE | 2020-09-18 11:47 | NURSING ---
Wound nurse into change dressing. Noted sever bleeding. Pressure applied by wound nurse. Pt remains in bed. Dressing dry and intact. Continue to monitor.
--- NOTE | 2020-09-18 15:15 | CASEMGMT ---
Addendum entered by Lila Rooney 09/18/20 15:50: Per , plan will be to reassess pt wound tomorrow and if able apply wound vac. Pt is agreeable to go to SNF if needed but is unsure if he has days left. TC to [facility] and spoke with Radha to make aware of plan. 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 NANCY GARCIA to call [facility] tomorrow to update on status. Original Note: NANCY GARCIA in to pt room with , plan for pt to go home with daily dressing changes with Dakins. Pt states he cannot get the Dakins solution. Pt does not have a willing and able cg to complete dressing changes on days that HHC is not in the home. He states that his HHC will do daily dressing changes. TC to [facility], spoke with Radha nurse who states they would only be able to go 3x/wk max. She states pt friend Maury who pt lives with has refused to complete dressing changes. Notified of this. He will discuss other options with pt.
--- NOTE | 2020-09-18 15:48 | NURSING ---
In to reassess the pressure dressing. no breakthrough drainage noted. discussed with Dr Fenton. will assess again tomorrow for possible wound VAC placement if no bleeding is noted.
--- NOTE | 2020-09-18 19:39 | PN.SURG_ITS ---
Subjective Subjective Postop #4 Patient is resting comfortably. VAC was going to be changed today. However, a muscular bleeding point was controlled with gauze compression. A compression dressing was placed. The dressing remained dry. Will try the VAC placement tomorrow. Objective Data Objective Data Vital Signs: Vital Signs Temp Pulse Resp BP Pulse Ox 98.3 F 74 18 144/80 H 97 09/18/20 15:36 09/18/20 15:36 09/18/20 16:05 09/18/20 15:36 09/18/20 15:36 Oxygen Flow Rate (L/min) 2 Oxygen Delivery Method Room Air Weight: 153 lb 3.54 oz Body Mass Index (BMI) 26.3 Intake & Output: Intake and Output for Last 24 Hours 09/16/20 09/17/20 09/18/20 23:59 23:59 23:59 Intake Total 4066.41 / 4066.41 2276.68 / 2276.68 3555.01 / 3555.01 Output Total 2350 / 2350 1999 / 1999 2400 / 2400 Balance 1716.41 / 1716.41 276.68 / 276.68 1155.01 / 1155.01 Medical Nutrition Assessment Dietitian: Nutrition Therapy Diagnosis Start: 09/15/20 13:15 Freq: Status: Active Protocol: Document 09/18/20 15:28 RMA (Rec: 09/18/20 15:28 RMA [id number]) Nutrition Malnutrition Evidence of Malnutrition Exists No Intake Problem Increased Nutrient Needs (specify) Etiology (protein) r/t wounds Signs/Symptoms as evidenced by right foot pressure injury, right hip pressure injury, and need for wound vac on right hip. Status Active Problem Recommendation Dietitian Recommendations/Changes Continue consistent carbohydrate diet. Continue 1 pkt orange Baldemar PO BID. Lab / Micro Data Attestation: I reviewed the patient's lab results. Result Diagrams: 09/18/20 06:00 09/18/20 06:00 Labs: Laboratory Results - last 24 hr 09/18/20 06:00: WBC 11.6 H, RBC 2.73 L, Hgb 8.7 L, Hct 26.1 L, MCV 95.6 H, MCH 31.9, MCHC 33.3, RDW Std Deviation 48.1 H, RDW Coeff of Ed 13.8, Plt Count 207, MPV 11.2 09/18/20 06:00: Sodium 139, Potassium 3.4 L, Chloride 109 H, Carbon Dioxide 2 5.0, Anion Gap 5, BUN 13, Creatinine 0.59 L, Estim Creat Clear Calc 55.09, Est GFR (MDRD) Af Amer 172, Est GFR (MDRD) Non-Af 142, BUN/Creatinine Ratio 21.9 H, Glucose 134 H, Calcium 9.1 Micro: Microbiology 09/14/20 09:00 Bone - Hip Gram Stain - Final 09/14/20 09:00 Bone - Hip Wound Culture - Final Escherichia coli 09/14/20 09:00 Bone - Hip Anaerobic Culture - Final No anaerobic bacteria isolated. 09/14/20 09:00 Tissue - Hip Gram Stain - Final 09/14/20 09:00 Tissue - Hip Wound Culture - Final No growth aerobically. 09/14/20 09:00 Tissue - Hip Anaerobic Culture - Preliminary No growth in 48 hours. Physical Exam Narrative General - Alert and Oriented HEENT - PERRL. EOMI. Abdomen - Soft and nondistended. Extremities -On the right hip area is a trochanteric pressure sore. VAC was removed. A muscular bleeder needed gauze compression to control it. A compression dressing was applied. Will try the VAC placement tomorrow. Later in the day, the compression dressing remained dry. Neuro - CN II-XII grossly intact. Psych - Normal mood and affect. Assessment & Plan Assessment/Plan (1) Decubitus ulcer of right hip, stage 4: (2) Diabetes: (3) Stroke: (4) History of MRSA infection: (5) Smoker: (6) Acute postoperative anemia due to expected blood loss: (7) Postoperative fever: PLAN: Hgb has improved to 8.7 compared to 8.1 yesterday. Patient has acute postoperative anemia due to expected blood loss. Will monitor. Continue iron supplementation. Did have another episode of some muscular bleeding when the VAC was removed. Controlled with gauze compression. A compression dressing was applied. Later in the day the dressing remained dry. Will try and apply the VAC tomorrow. Will recheck a Hgb tomorrow. If it drops below 8, will transfuse PRBC. Some of the decrease was also due to IV dilution. His I's/O's are positive 4.2 liters.. Prealbumin was 18.1. Encourage nutritional supplementation with protein to help the healing process. Patient has been afebrile so far today. The postoperative fever is resolving as the Tmax each day has been less than the day before. WBC slightly increased to 11.6. Preliminary bone culture shows E. coli. Presently on Vancomycin and Zosyn. If temperature continues to normalize, can discharge on po Levaquin. Pathology is pending. Because of the bleeding with the dressing change, will keep him another day. Will re-evaluate the wound and try the VAC again tomorrow. If there is some oozing tomorrow, then will continue the compression dressings and stop the VAC. Since the daily dressing changes would be difficult at home, he is amenable to going to an ECF for a little while until the wound has improved. HgbA1c from 09/08/20 was 6.0. Encouraged patient to stop smoking as it may have deleterious effects on wound healing.
[2020-09-18] MEDS: Atorvastatin Calcium 40 MG Tablet PO (22:43)
[2020-09-18] MEDS: Metoprolol(XL)Succ 100 MG Tablet PO (22:43)
[2020-09-18] MEDS: Doxazosin 4 MG Tablet PO (22:44)
[2020-09-18] MEDS: Gabapentin 600 MG Tablet PO (22:44)
[2020-09-19] MEDS: 0.9% Normal Saline 1,000 ML 100 ML IV (05:01)
[2020-09-19] MEDS: Acetaminophen 325 MG Tablet 650 MG PO (05:52)
[2020-09-19] MEDS: Levothyroxine 25 MCG TABLET PO (05:52)
[2020-09-19] MEDS: oxyCODONE 5 MG Tablet 10 MG PO (05:53)
[2020-09-19 06:10] VITALS: BP 121/41; PULSE 79; RESP 16; TEMP 36.9; O2SAT 93
[2020-09-19 06:17] LABS: Hematocrit 25.6 % (40-54); Hemoglobin 8.3 g/dL (13.0-16.5); Mean Corp Hgb Conc 32.4 g/dL (32-36); Mean Corpuscular Hgb 31.6 pg (27.0-32.0); Mean Corpuscular Volume 97.3 fL (80-94); Platelet Count 227 K/mm3 (150-450); RBC Distribution Width CV 14.1 % (11.6-14.6); RBC Distribution Width SD 50.4 fl (35.1-43.9); Red Blood Count 2.63 M/mm3 (4.6-6.2)
[2020-09-19 06:41] LABS: Anion Gap 6 (5-15); BUN 17 mg/dL (7-18); BUN/Creat Ratio 21.8 RATIO (10-20); Calcium,Total 8.8 mg/dL (8.5-10.1); Chloride 108 mmol/L (98-107); Creatinine, Serum 0.78 mg/dL (0.70-1.30); EST Glomerular Filtration Rate 104 mL/min (>60); Est Glom Filt Rate - Afr Amer 125 mL/min (>60); Estimated Creatinine Clearance 55.09 ml/min; Glucose 198 mg/dL (74-106); Potassium 3.2 mmol/L (3.5-5.1); Sodium Level 137 mmol/L (136-145)
[2020-09-19] MEDS: LORazepam 1 MG Tablet PO (09:05)
[2020-09-19] MEDS: HYDROmorphone 1 MG/ML Syringe IV (09:05)
[2020-09-19] MEDS: Iron Polysaccharide Complex 150 MG CAPSULE PO (09:06)
[2020-09-19] MEDS: 0.9% Saline Lock 10 ML Syringe IV (09:06)
--- NOTE | 2020-09-19 09:06 | RAD_ITS ---
HISTORY: fever EXAMINATION/TECHNIQUE: XR Chest 1 View: Portable supine AP chest x-ray COMPARISON: 09/15/20 FINDINGS: LINES/DEVICES: None. LUNGS: No consolidation, edema or effusion. No pneumothorax. MEDIASTINUM AND CARDIOVASCULAR STRUCTURES: Cardiac silhouette not enlarged. Central airways and mediastinal contour are unremarkable. BONES AND SOFT TISSUES: No acute bony abnormalities. RAD/Chest 1 View (Portable) IMPRESSION: No radiographic evidence of acute cardiopulmonary disease. at 1521 Reported and signed by: Hal Rosario MD Electronically Signed: Hal Rosario MD at 15:20 EDT Tel , Service support ,
[2020-09-19 09:36] VITALS: BP 143/59; PULSE 95; RESP 18; TEMP 36.8; O2SAT 96
[2020-09-19 09:37] VITALS: RESP 18
--- NOTE | 2020-09-19 10:05 | NURSING ---
wound photo: right hip
--- NOTE | 2020-09-19 11:19 | CASEMGMT ---
Addendum entered by Lila Rooney 09/19/20 15:29: Faxed referral information to [facility]. Original Note: RN CM notified that pt wound vac was applied today and plan for pt dc. TC to [facility], spoke with Radha rollins. She is aware. Will fax orders, dc instructions when available as well as H&P.
--- NOTE | 2020-09-19 13:42 | PN.SURG_ITS ---
Subjective Subjective Postop #5 Patient is resting comfortably in bed. Wound VAC placed today without difficulty or bleeding. Objective Data Objective Data Vital Signs: Vital Signs Temp Pulse Resp BP Pulse Ox 98.3 F 95 18 143/59 H 96 09/19/20 09:36 09/19/20 09:36 09/19/20 09:37 09/19/20 09:36 09/19/20 09:36 Oxygen Flow Rate (L/min) 2 Oxygen Delivery Method Room Air Weight: 153 lb 3.54 oz Body Mass Index (BMI) 26.3 Intake & Output: Intake and Output for Last 24 Hours 09/17/20 09/18/20 09/19/20 23:59 23:59 23:59 Intake Total 2276.68 / 2276.68 4406.68 / 4406.68 923.32 / 923.32 Output Total 1999 / 1999 3000 / 3000 250 / 250 Balance 276.68 / 276.68 1406.68 / 1406.68 673.32 / 673.32 Medical Nutrition Assessment Dietitian: Nutrition Therapy Diagnosis Start: 09/15/20 13:15 Freq: Status: Active Protocol: Document 09/18/20 15:28 RMA (Rec: 09/18/20 15:28 RMA [id number]) Nutrition Malnutrition Evidence of Malnutrition Exists No Intake Problem Increased Nutrient Needs (specify) Etiology (protein) r/t wounds Signs/Symptoms as evidenced by right foot pressure injury, right hip pressure injury, and need for wound vac on right hip. Status Active Problem Recommendation Dietitian Recommendations/Changes Continue consistent carbohydrate diet. Continue 1 pkt orange Baldemar PO BID. Lab / Micro Data Result Diagrams: 09/19/20 06:00 09/19/20 06:00 Labs: Laboratory Results - last 24 hr 09/19/20 06:00: WBC 10.0, RBC 2.63 L, Hgb 8.3 L, Hct 25.6 L, MCV 97.3 H, MCH 31.6, MCHC 32.4, RDW Std Deviation 50.4 H, RDW Coeff of Ed 14.1, Plt Count 227, MPV 11.0 09/19/20 06:00: Sodium 137, Potassium 3.2 L, Chloride 108 H, Carbon Dioxide 23.0, Anion Gap 6, BUN 17, Creatinine 0.78, Estim Creat Clear Calc 55.09, Est GFR (MDRD) Af Amer 125, Est GFR (MDRD) Non-Af 104, BUN/Creatinine Ratio 21.8 H, Glucose 198 H, Calcium 8.8 Micro: Microbiology 09/14/20 09:00 Bone - Hip Gram Stain - Final 09/14/20 09:00 Bone - Hip Wound Culture - Final Escherichia coli 09/14/20 09:00 Bone - Hip Anaerobic Culture - Final No anaerobic bacteria isolated. 09/14/20 09:00 Tissue - Hip Gram Stain - Final 09/14/20 09:00 Tissue - Hip Wound Culture - Final No growth aerobically. 09/14/20 09:00 Tissue - Hip Anaerobic Culture - Preliminary No growth in 48 hours. Physical Exam Const oriented x3 Resp normal respiratory effort Cardio regular rate GI soft to palpation and non-tender Extremity no calf tenderness Skin Wound Narrative: Right hip trochanteric pressure sore. Wound is stable with no active bleeding today. Wound VAC was able to be reapplied today. Wound nurse's pictures reviewed. Neuro oriented x3 Assessment & Plan Assessment/Plan (1) Decubitus ulcer of right hip, stage 4: (2) Diabetes: (3) Stroke: (4) History of MRSA infection: (5) Smoker: (6) Acute postoperative anemia due to expected blood loss: (7) Postoperative fever: PLAN: Hgb 8.3 compared to 8.7 yesterday. Patient has acute postoper ative anemia due to expected blood loss. Will monitor. Continue iron supplementation. Did have another episode of some muscular bleeding yesterday when the VAC was removed. Controlled with gauze compression. A compression dressing was applied. Later in the day the dressing remained dry. The wound was stable to day with no active bleeding. Wound VAC reapplied. He will need wound VAC dressings 3 times per week upon discharge. Prealbumin was 18.1. Encourage nutritional supplementation with protein to help the healing process. Patient has been afebrile so far today. The postoperative fever is resolving as the Tmax each day has been less than the day before. WBC 10.0 today. Operative bone culture shows E. coli. Presently on Vancomycin and Zosyn. Will discharge him on Levaquin. Pathology is pending. HgbA1c from 09/08/20 was 6.0. Encouraged patient to stop smoking as it may have deleterious effects on wound healing. Patient will be discharged home with home health. He will follow up on Friday09/25/20 at the wound healing center.
--- NOTE | 2020-09-19 13:42 | PCM.DC ---
Discharge Instructions Diet Discharge Diet: Carb Control Diet (high protein intake to help with wound healing) Activity Discharge Activity: May Not Drive and May Not Shower May resume sexual activity in: No Restrictions Weight Bearing Status: Weight bearing as tolerated Lifting Restrictions: 20 lb Dressing / Incision Call your doctor if your incision/area has: Continuous Slow Oozing, Sudden Increased Bleeding, Increased Pain/ Swelling and Foul Smelling Discharge Call your doctor if you observe: Fever of 101 or Higher, Inability to have a bowel movement, Chest pain, Calf discomfort and Uncontrolled pain Change Dressing in: 2 days (home health to change) Cleanse incision/area with: Soap & Water (at the time of dressing change) and Keep Dressing Clean & Dry Additional Dressing/Incision Instructions:: Wound VAC dressing to be change 3 times per week. Wound needs to be washed with SOAP and WATER at the time of the dressing change. Dressing was placed 09/19/20. Follow Up Care Please Follow Up With: Ginette Alvarez When: Friday09/25/20 at [facility] [phone] Test Results: Test results from this visit will be discussed in further detail at your follow-up appointment, if applicable. Discharge Plan Admission Admit Date/Time: 09/14/20 10:00 Primary Reason for Your Visit: surgery Attending Provider: Lorenzo Fenton Primary Care Provider: Abelardo Adamson Discharge Orders/Prescriptions Prescriptions: New polysaccharide iron complex [Ferrex 150] 150 mg iron Capsule 150 mg PO DAILYCM 30 Days Qty: 30 RF: 1 docusate sodium [DOK] 100 mg Capsule 100 mg PO BID 30 Days Qty: 60 RF: 1 levofloxacin 500 mg tablet 500 mg PO DAILY 21 Days Qty: 21 RF: 1 oxycodone-acetaminophen [Percocet] 5-325 mg tablet 1 tab PO Q4H PRN (Reason: pain (scale score 7-10)) 7 Days Qty: 40 RF: 0 diazepam [Valium] 5 mg tablet 5 mg PO BID PRN (Reason: muscle spasm) 7 Days Qty: 14 RF: 0 Continued metoprolol succinate 100 MG tablet extended release 24 hr 100 mg PO QHS RF: 0 Gralise 600 MG tablet extended release 24 hr 600 mg PO QHS RF: 0 atorvastatin [Lipitor] 40 MG tablet 40 mg PO QHS RF: 0 terazosin 5 mg capsule 5 mg PO QHS RF: 0 tramadol 50 mg tablet 50 mg PO Q12H PRN PRN (Reason: Pain) RF: 0 levothyroxine [Synthroid] 25 mcg Tablet 25 mcg PO DAILY RF: 0 lorazepam 1 mg tablet 1 mg PO Q8H PRN PRN (Reason: Anxiety) RF: 0 aspirin 325 mg Tablet 325 mg PO QHS RF: 0 promethazine 25 mg Tablet 25 mg PO Q6H PRN (Reason: Nausea) RF: 0 Referrals / Follow Up: Abelardo Adamson DO [Primary Care Provider] - Disposition Disposition (needs filled in before D/C Order can be placed): Home Health Service
--- NOTE | 2020-09-19 14:58 | NURSING ---
Pt switched over to the home VAC. reviewed alarms, etc. with patient. proof of delivery form signed and sent to [employer]. pt aware of need to take dressing to wound center appts. pt denies further needs or questions at this time.
[2020-09-19 15:19] VITALS: BP 148/74; PULSE 74; RESP 18; TEMP 36.8; O2SAT 98
--- NOTE | 2020-09-19 16:24 | DS.PCM_ITS ---
Providers Date of Admission: 09/14/20 Date of Discharge: 09/19/20 Primary Care Physician: Dr. Abelardo Adamson DO Attending Physician: Dr. Lorenzo Fenton MD Consultations 09/15/20 06:41 Consult: Onc/Wound/cigarette inspector Routine Comment: Reason for Consult:: wound vac Reason For Visit: EXCISION TROCHANTERIC PRESSURE SORE Diagnosis Discharge Diagnosis (1) Decubitus ulcer of right hip, stage 4: Status: Chronic Code(s): L89.214 - Pressure ulcer of right hip, stage 4 (2) Diabetes: Status: Chronic Code(s): E11.9 - Type 2 diabetes mellitus without complications (3) Stroke: Status: Chronic Code(s): I63.9 - Cerebral infarction, unspecified (4) History of MRSA infection: Status: Chronic Code(s): Z86.14 - Personal history of Methicillin resistant Staphylococcus aureus infection (5) Smoker: Status: Chronic Code(s): F17.200 - Nicotine dependence, unspecified, uncomplicated (6) Acute postoperative anemia due to expected blood loss: Status: Resolved Code(s): D62 - Acute posthemorrhagic anemia (7) Postoperative fever: Status: Resolved Code(s): R50.82 - Postprocedural fever Plan: Excise the pressure sore along with partial ostectomy for osteomyelitis. Will treat positive cultures with antibiotics. Will apply the VAC the following day prior to discharge. Followup at the [facility]. Medications at Discharge Home Medications Gralise 600 mg PO QHS 09/12/16 metoprolol succinate 100 mg PO QHS 09/12/16 atorvastatin [Lipitor] 40 mg PO QHS 09/13/16 levothyroxine [Synthroid] 25 mcg PO DAILY 06/19/20 lorazepam 1 mg PO Q8H PRN PRN 06/19/20 terazosin 5 mg PO QHS 06/19/20 tramadol 50 mg PO Q12H PRN PRN 06/19/20 aspirin 325 mg PO QHS 09/07/20 promethazine 25 mg PO Q6H PRN 09/14/20 diazepam [Valium] 5 mg PO BID PRN 7 Days #14 tab 09/19/20 docusate sodium [DOK] 100 mg PO BID 30 Days #60 cap 09/19/20 levofloxacin 500 mg PO DAILY 21 Days #21 tab 09/19/20 oxycodone-acetaminophen [Percocet] 1 tab PO Q4H PRN 7 Days #40 tab 09/19/20 polysaccharide iron complex [Ferrex 150] 150 mg PO DAILYCM 30 Days #30 cap 09/19/20 Hospital Course Operations - (09/14/20 - Excision right trochanteric pressure sore, Stage IV, with partial ostectomy for osteomyelitis.) Procedures Wound vac placement Summary of Care Provided Minutes Spent on Discharge: 35 Hospital Course: 75 year old man with a history of diabetes mellitus presented to the [facility] with nonhealing ulcers right lower extremity as well as a right trochanteric pressure sore. The ulcers developed when he suffered a fall at home in December, and wasn't found for 5 days. He had a stroke and has residual impaired movement and sensation of his right lower extremity. He reports he is able to ambulate with the use of a walker, and also uses a wheelchair. Wound cultures in March, showed MRSA. He was treated with Bactrim. Wound culture on 05/02/20 showed Stenotrophomonas maltophilia. He was treated with Levaquin. Wound culture on 06/16/20 showed Streptococcus agalactiae. He was treated with Cefdinir. Right hip x-ray on 06/23/20 did not show evidence of osteomyelitis. CT Pelvis on 07/31/20 showed ulcerating lesion in the lateral posterior aspect of the right buttock with increased markings in the subcutaneous fat. This abuts the underlying gluteus muscle. Right sided Spigalean hernia. The ulcers are being treated with Silver dressing changes. Today he denies fever. His appetite is ok. Encourage nutritional supplementation with protein to help the healing process. I was asked to evaluate this patient for surgical options for treatment. Patient went to the operating room on 09/14/20 where he underwent excision right trochanteric pressure sore, Stage IV, with partial ostectomy for osteomyelitis. He tolerated the procedure well. Postop he had some bleeding issues with the dressing changes. Hemostasis was obtained with gauze compression and silver nitrate chemical cauterization. His Hgb went from 10.7 down to 8 and came back up to 8.3 at discharge. He was placed on Iron supplementation. Patient had acute postoperative anemia from expected blood loss. The VAC was put on without difficulty couple days later. When the VAC was changed again on Friday, there was some more oozing which was controlled with gauze compression. The VAC was put on hold for another day and it was placed again on Friday09/19/20 without difficulty and the patient was discharged home. Also postoperatively he had a fever to 101.6. CXR was normal. Urninalysis was normal. The fever resolved at discharge. He was treated perioperatively with Vancomycin and Zosyn. Operative culture showed E. coli in the bone. Pathology was pending at discharge. He was discharged home on Levaquin. On the 5th postoperative day he was discharged home in satisfactory condition. Wrote script for Levaquin for 21 days and a refill. Wrote scripts for Percocet for pain (40 tabs) and for Valium for spasm (14 tabs). Wrote scripts for Colace for constipation (60 tabs) and a refill and for Iron supplementation (30 tabs) and a refill. Followup at [facility] on 09/25/20. Condition upon discharge is good. Weight / BMI Weight Weight: 153 lb 3.54 oz Body Mass Index (BMI) 26.3 ABG / Lab / Microbiology Data Attestation: I reviewed the patient's lab results. Result Diagrams: 09/19/20 06:00 09/19/20 06:00 Laboratory: Laboratory Results - last 24 hr 09/19/20 06:00: WBC 10.0, RBC 2.63 L, Hgb 8.3 L, Hct 25.6 L, MCV 97.3 H, MCH 31.6, MCHC 32.4, RDW Std Deviation 50.4 H, RDW Coeff of Ed 14.1, Plt Count 227, MPV 11.0 09/19/20 06:00: Sodium 137, Potassium 3.2 L, Chloride 108 H, Carbon Dioxide 23 .0, Anion Gap 6, BUN 17, Creatinine 0.78, Estim Creat Clear Calc 55.09, Est GFR (MDRD) Af Amer 125, Est GFR (MDRD) Non-Af 104, BUN/Creatinine Ratio 21.8 H, Glucose 198 H, Calcium 8.8 Microbiology: Microbiology 09/14/20 09:00 Bone - Hip Gram Stain - Final 09/14/20 09:00 Bone - Hip Wound Culture - Final Escherichia coli 09/14/20 09:00 Bone - Hip Anaerobic Culture - Final No anaerobic bacteria isolated. 09/14/20 09:00 Tissue - Hip Gram Stain - Final 09/14/20 09:00 Tissue - Hip Wound Culture - Final No growth aerobically. 09/14/20 09:00 Tissue - Hip Anaerobic Culture - Preliminary No growth in 48 hours. Radiography Diagnostic Testing: Radiology Impression Chest X-Ray 09/19/20 09:06 IMPRESSION: No radiographic evidence of acute cardiopulmonary disease. at 1521 Reported and signed by: Hal Rosario MD Electronically Signed: Hal Rosario MD at 15:20 EDT Tel , Service support , D/C Instructions Discharge Diet: Carb Control Diet (high protein intake to help with wound healing) May resume sexual activity in: No Restrictions Weight Bearing Status: Weight bearing as tolerated Call your doctor if your incision/area has: Continuous Slow Oozing, Sudden Increased Bleeding, Increased Pain/ Swelling and Foul Smelling Discharge Call your doctor if you observe: Fever of 101 or Higher, Inability to have a bowel movement, Chest pain, Calf discomfort and Uncontrolled pain Cleanse incision/area with: Soap & Water (at the time of dressing change) and Keep Dressing Clean & Dry Additional Dressing/Incision Instructions: Wound VAC dressing to be change 3 times per week. Wound needs to be washed with SOAP and WATER at the time of the dressing change. Dressing was placed 09/19/20. Please Follow Up With: Ginette Alvarez When: Friday09/25/20 at [facility] [phone] Meaningful Use Info Meaningful Use Diagnoses (Choose all that apply): None applicable Discharge Plan Admission Admit Date/Time: 09/14/20 10:00 Primary Reason for Your Visit: surgery Attending Provider: Lorenzo Fenton Primary Care Provider: Abelardo Adamson Discharge Orders/Prescriptions Prescriptions: New polysaccharide iron complex [Ferrex 150] 150 mg iron Capsule 150 mg PO DAILYCM 30 Days Qty: 30 RF: 1 docusate sodium [DOK] 100 mg Capsule 100 mg PO BID 30 Days Qty: 60 RF: 1 levofloxacin 500 mg tablet 500 mg PO DAILY 21 Days Qty: 21 RF: 1 oxycodone-acetaminophen [Percocet] 5-325 mg tablet 1 tab PO Q4H PRN (Reason: pain (scale score 7-10)) 7 Days Qty: 40 RF: 0 diazepam [Valium] 5 mg tablet 5 mg PO BID PRN (Reason: muscle spasm) 7 Days Qty: 14 RF: 0 Continued metoprolol succinate 100 MG tablet extended release 24 hr 100 mg PO QHS RF: 0 Gralise 600 MG tablet extended release 24 hr 600 mg PO QHS RF: 0 atorvastatin [Lipitor] 40 MG tablet 40 mg PO QHS RF: 0 terazosin 5 mg capsule 5 mg PO QHS RF: 0 tramadol 50 mg tablet 50 mg PO Q12H PRN PRN (Reason: Pain) RF: 0 levothyroxine [Synthroid] 25 mcg Tablet 25 mcg PO DAILY RF: 0 lorazepam 1 mg tablet 1 mg PO Q8H PRN PRN (Reason: Anxiety) RF: 0 aspirin 325 mg Tablet 325 mg PO QHS RF: 0 promethazine 25 mg Tablet 25 mg PO Q6H PRN (Reason: Nausea) RF: 0 Referrals / Follow Up: Abelardo Adamson DO [Primary Care Provider] - Disposition Disposition (needs filled in before D/C Order can be placed): Home Health Service
== END 2020-09-19 15:40 | disposition home health service (06) ==
LOC: SDC 10:50 → MS3 10:50
PROVIDERS: Anesthesiology; Admitting Provider Surgery; PCP Student in an Organized Health Care Education/Training Program; Referring Provider Surgery; Visit Provider Surgery
PROC: (CPT 15958; principal; 2020-09-14 08:15)
DX: L89.214 Pressure ulcer of right hip, stage 4 (principal); E11.622 Type 2 diabetes mellitus with other skin ulcer; E78.5 Hyperlipidemia, unspecified; I10 Essential (primary) hypertension; F31.9 Bipolar disorder, unspecified; F17.200 Nicotine dependence, unspecified, uncomplicated; G25.0 Essential tremor; R13.10 Dysphagia, unspecified; R32 Unspecified urinary incontinence; H91.90 Unspecified hearing loss, unspecified ear; M19.90 Unspecified osteoarthritis, unspecified site; R50.82 Postprocedural fever; Z79.899 Other long term (current) drug therapy; Z86.14 Personal history of Methicillin resistant Staphylococcus aureus infection; Z91.81 History of falling; Z79.82 Long term (current) use of aspirin; Z86.73 Personal history of transient ischemic attack (TIA), and cerebral infarction without residual deficits; Z86.16 Personal history of COVID-19
CPT/HCPCS: 15958; 36415; 71045; 80048; 80053; 80202; 81001; 82962; 83036; 84134; 84443; 85025; 85027; 85652; 86140; 87070; 87075; 87077; 87102; 87176; 87186; 87205; 87206; 88304; 88307; 88311; 93005; 96361; 96365; 96366; 96367; 96372; 96375; 96376; 97802; 97803; 99218; 99251; 99406; J7030; J7050; J7120; A4216; G0378; G0463; J2405

== ENCOUNTER 2020-10-09 11:15 | Outpatient (RCR) | payer MEDICARE, SELFPAY ==
[2020-09-14 12:15] VITALS: BMI 26.3
[2020-09-17 00:26] VITALS: BP 140/57; PULSE 75; RESP 18; TEMP 36.8
[2020-09-25 13:47] VITALS: PULSE 100; TEMP 35.9; BMI 26.3
--- NOTE | 2020-09-25 15:03 | PN.PCM_ITS ---
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 History of Wound: The patient [facility]2020 for an initial evaluation of right lower extremity ulcers of the foot, ankle, lateral leg and hip. He has a past medical history significant for type 2 diabetes mellitus, hypertension, hyperlipidemia, anemia, tobacco use and alcoholism. At that time he reported having been sober for about 4 months. He no longer takes Metformin, and states this was discontinued due to causing renal insufficiency. He states his diabetes is currently managed with diet and exercise, though he has been not unable to exercise in recent months. In December 2019, he suffered a fall and a 5 day long-lie, during which time he developed these ulcers. He states he had a stroke and reports subsequent impaired movement and sensation of his right lower extremity from the mid lower leg to his toes. He was admitted to a correction following hospitalization, and was receiving wound debridement approximately every 2 weeks. He was later discharged home. He is receiving home health care from [facility]. He reports he is able to ambulate with the use of a walker, and also uses a wheelchair at times. Wound cultures in March, showed MRSA. He was treated with Bactrim and Clindamycin. Wound culture on 05/02/20 showed Stenotrophomonas maltophilia. He was treated with Levaquin (poorly tolerated), then switched to Bactrim. Wound culture on 06/16/20 showed Streptococcus agalactiae. He was treated with IV Unasyn and a course of Cefdinir. Right hip x-ray on 06/23/20 did not show evidence of osteomyelitis. Pelvic CT on 07/31/2020 did not show evidence of osteomyelitis. Ulcerating lesion in the lateral posterior aspect of the right buttock with increased markings in the subcutaneous fat. This abuts the underlying gluteus muscle. Right lateral leg ulcer is healed. Surgery 09/14/20 - Excision right trochanteric pressure sore, Stage IV, with partial ostectomy for osteomyelitis. Operative bone culture positive for E. coli. Tissue culture negative. Pathology of bone predominantly chronic osteomyelitis, focal mild acute osteomye litis and reactive changes Wound care - Wound VAC at 150 mmHg to right thigh. Right ankle ulcer has daily Aquacel-Ag. Today he denies any fever, chills, n/v. Progress of Wound: Right hip and right ankle are stable. Objective Data Objective Data Vital Signs: Vital Signs Temp Pulse Resp BP 96.6 F L 100 18 140/57 H 09/25/20 13:47 09/25/20 13:47 09/17/20 00:26 09/17/20 00:26 Weight: 140 lb Body Mass Index (BMI) 26.3 Charges/Coding Procedures Integumentary [id number]: [id number] Global Visit Physical Exam Const alert and oriented x3 HEENT normocephalic Lymph Lymphatic: no lymphedema noted Resp normal respiratory effort Cardio regular rate GI non-tender Palpation: soft Extremity normal capillary refill Skin Wound Narrative: Right thigh ulcer into the muscle with bone exposed. Right lateral ankle is stable. Neuro CN's II-XII intact bilaterally Psych Appearance: grossly normal Debridement Note Debridement Note Post-Debridement Measurements and Additional Note: Post-Debridement Measurements/Treatment - Nurse 1 - General Ulcer Assessment Start: 09/25/20 13:47 Freq: Status: Active Protocol: [email or web address] Activity Type Activity Date Activity User E-Sign Co-Sign Detail Recorded Client Recorded Date Recorded By Document 09/25/20 13:47 HARDIK [id number] 09/25/20 14:08 HARDIK 09/25/20 13:47 - Today's Visit Information Type of service Follow-up Visit (Physician/TERMINAL WORKER ) Arrival Mode Wheelchair Patient Identification Verified (Name & Yes ) Height and Weight Body Mass Index (BMI) 26.3 BMI Classification Overweight Vital Signs Temperature (97.8 F-99.1 F) 96.6 F L Temperature Source Temporal Pulse Rate (60-100) 100 Pulse Location Monitor History Since Last Visit- (Skip if this is Patient's initial visit) Have you changed medications since your No last visit? Any new allergies or adverse reactions No Had a fall/change in ADL's that may No increase risk of falls Signs or symptoms of abuse and/or No neglect since last visit Have you been in the hospital since your No last visit? Has dressing in place as prescribed Yes Has compression in place as prescribed N/A Has offloadiing in place as prescribed N/A Experienced any changes in pain level or No management Left Footwear Regular Shoe Right Footwear Regular Shoe Pain Scale: 0-10 Numeric Is Patient Pain Free? Yes WC - Nurse 1 - General Ulcer Measurement Start: 09/25/20 13:47 Freq: Status: Active Protocol: Activity Type Activity Date Activity User E-Sign Co-Sign Detail Recorded Client Recorded Date Recorded By Document 09/25/20 13:47 HARDIK [id number] 09/25/20 14:08 HARDIK 09/25/20 13:47 Wound Center Nurse 1 #2 R Hip -Current Size (cm) - Length 4.5 -Current Size (cm) - Width 6.7 -Current Size (cm) - Depth 1.5 -Total Square Cm 30.15 -Undermining/Tunneling Starts (O'clock 7 ) -Undermining/Tunneling Ends (O'clock) 2 -Maximum Distance (cm) 3 -Exudate Amt Medium -Exudate Type Serosanguineous -Wound Margin Distinct, Outline Attached -Granulation Amt Medium (34-66%) -Granulation Quality Red -Necrosis Amt Small (1-33%) -Necrotic Tissue Type Adherent Slough -Structure Exposed Muscle,Fat Layer Exposed -Texture (Cammie-wound Skin Appearance) Assessed -Moisture (Cammie-wound Skin Appearance) No Abnormality, Assessed -Color (Cammie-wound Skin Appearance) No Abnormality, Assessed -Temperature (Cammie-wound Skin No Abnormality Appearance) (Pt Warm) -Tenderness on Palpation (Cammie-wound No Skin Appearance) -Ulcer Cleansing Rinsed/ Irrigated with Saline -Foul Odor after Cleansing No -Anesthetic Used 4% Lidocaine Solution,5% Lidocaine Gel #1 R ankle -Current Size (cm) - Length 1.2 -Current Size (cm) - Width 1.4 -Current Size (cm) - Depth 0.2 -Total Square Cm 1.68 -Exudate Amt Small -Exudate Type Yellow/Green -Wound Margin Distinct, Outline Attached -Granulation Amt None Present (0 %) -Necrosis Amt Small (1-33%) -Necrotic Tissue Type Adherent Slough -Texture (Cammie-wound Skin Appearance) Assessed, Scarring -Moisture (Cammie-wound Skin Appearance) No Abnormality, Assessed -Color (Cammie-wound Skin Appearance) No Abnormality, Assessed -Temperature (Cammie-wound Skin No Abnormality Appearance) (Pt Warm) -Tenderness on Palpation (Cammie-wound No Skin Appearance) -Ulcer Cleansing Rinsed/ Irrigated with Saline -Foul Odor after Cleansing No -Anesthetic Used 4% Lidocaine Solution,5% Lidocaine Gel DELVIS - Nurse 2 - General Ulcer CM Notes Start: 09/25/20 13:47 Freq: Status: Active Protocol: Activity Type Activity Date Activity User E-Sign Co-Sign Detail Recorded Client Recorded Date Recorded By Document 09/25/20 14:28 VIELKA [id number] 09/25/20 14:32 VIELKA 09/25/20 14:28 Wound Center Nurse 2 #2 R Hip -Correct Patient No -Correct Side, Site, Position No -Correct Procedure No -Procedure Performed No -Wound/Ulcer Outcome Not Healed #1 R ankle -Time 14:31 -Correct Patient Yes -Correct Side, Site, Position Yes -Correct Procedure Yes -Procedure Performed Yes -Type of Procedure Debridement -Clinical Debridement Subcutaneous -Tissue Removed Subcutaneous -Post Debridement (cm) - Length 1.0 -Post Debridement (cm) - Width 0.8 -Post Debridement (cm) - Depth 0.2 -Total Square (Post) (cm) 0.80 -Area of Debridement (cm) - Length 1 -Area of Debridement (cm) - Width 0.8 -Total Square (Area) (cm) 0.8 -Tunneling No -Undermining/Tunneling No -Circular Undermining No -Wound/Ulcer Outcome Not Healed -Ulcer Cleansing Rinsed/ Irrigated with Saline -Foul Odor after Cleansing No -Bioengineered Tissue No -Bleeding Controlled with Pressure -Offloading No -Treatment Response Procedure Tolerated Well -Debridement - Subq, 1st 20sq cm Yes Pain Scale: 0-10 Numeric Is Patient Pain Free? Yes DELVIS - Nurse 3 - General Ulcer D/C NN Start: 09/25/20 13:47 Freq: Status: Active Protocol: Activity Type Activity Date Activity User E-Sign Co-Sign Detail Recorded Client Recorded Date Recorded By Document 09/25/20 14:50 HARDIK [id number] 09/25/20 14:51 HARDIK 09/25/20 14:50 Wound Care Nurse 3 #2 R Hip -Ulcer Cleansing Rinsed/ Irrigated with Saline -Setting (mmHg) 150 -Negative Pressure is Continuous -Regranex (If Applicable) Continue -NPWT Application Charge ($) NPWT </= 50 sq cm #1 R ankle -Primary Dressing Applied Aquacel AG 4x4 -Primary Dressing Covered/Secured with Dry Gauze, Secured with Tape -Aquacel AG 4x4 1 Pain Scale: 0-10 Numeric Is Patient Pain Free? Yes WC - Visit Discharge Discharge Condition Stable Ambulatory Status Wheelchair Transportation Private Auto Wound debrided: Lateral ankle ulcer Laterality: Right Type of Debridement: Excisional debridement Anesthesia Used: 5% Lidocaine Gel Depth: Down to and including healthy tissue and in the subcutaneous layer Percentage of wound debrided: 100 Instrument Used: 3mm curette Tissue Removed: Subcutaneous tissue and slough Severity: Limited To Skin Breakdown Amount of bleeding with debridement: Mild Bleeding Controlled with: Pressure Patient tolerated procedure: Patient tolerated procedure well No debridement was completed: No debridement was completed today (on the Right thigh ulcer) Assessment/Plan Assessment/Plan (1) Decubitus ulcer of right hip, stage 4: CODE(S): L89.214 - Pressure ulcer of right hip, stage 4 (2) Diabetic ulcer of right ankle: CODE(S): E11.622 - Type 2 diabetes mellitus with other skin ulcer; L97.319 - Non-pressure chronic ulcer of right ankle with unspecified severity (3) History of MRSA infection: CODE(S): Z86.14 - Personal history of Methicillin resistant Staphylococcus aureus infection (4) Smoker: CODE(S): F17.200 - Nicotine dependence, unspecified, uncomplicated (5) Acute postoperative anemia due to expected blood loss: CODE(S): D62 - Acute posthemorrhagic anemia (6) Osteomyelitis of right hip: CODE(S): M86.9 - Osteomyelitis, unspecified PLAN: Wound care - Wound VAC at 150 mgHg to right lateral thigh. Dressings to be changed 3 times per week. Wash with soap and water at the time of dressing changes. Right lateral ankle daily Aquacel-Ag covered by gauze. Operative wound cultures from 09/14/20 on the right hip bone positive E.coli. He is currently on Levaquin. Will refer him to Dr. Chambers, [facility] for further evaluation. Follow up 2 weeks.
[2020-10-09 11:50] VITALS: BP 149/69; PULSE 88; TEMP 36.2; BMI 26.3
--- NOTE | 2020-10-09 12:05 | PN.PCM_ITS ---
History of Present Illness Date of Service: 10/09/20 Chief Complaint: Right trochanteric pressure sore, Stage IV and nonhealing diabetic ulcer right lateral ankle. History of Wound: [facility] for an initial evaluation of right lower extremity ulcers of the foot, ankle, lateral leg and hip. He has a past medical history significant for type 2 diabetes mellitus, hypertension, hyperlipidemia, anemia, tobacco use and alcoholism. At that time he reported having been sober for about 4 months. He no longer takes Metformin, and states this was discontinued due to causing renal insufficiency. He states his diabetes is currently managed with diet and exercise, though he has been not unable to exercise in recent months. In December 2019, he suffered a fall and a 5 day long-lie, during which time he developed these ulcers. He states he had a stroke and reports subsequent impaired movement and sensation of his right lower extremity from the mid lower leg to his toes. He was admitted to a [facility] following hospitalization, and was receiving wound debridement approximately every 2 weeks. He was later discharged home. He is receiving home health care from [facility]. He reports he is able to ambulate with the use of a walker, and also uses a wheelchair at times. Wound cultures in March, showed MRSA. He was treated with Bactrim and Clindamycin. Wound culture on 05/02/20 showed Stenotrophomonas maltophilia. He was treated with Levaquin (poorly tolerated), then switched to Bactrim. Wound culture on 06/16/20 showed Streptococcus agalactiae. He was treated with IV Unasyn and a course of Cefdinir. Right hip x-ray on 06/23/20 did not show evidence of osteomyelitis. Pelvic CT on 07/31/2020 did not show evidence of osteomyelitis. Ulcerating lesion in the lateral posterior aspect of the right buttock with increased markings in the subcutaneous fat. This abuts the underlying gluteus muscle. Right lateral leg ulcer is healed. Surgery 09/14/20 - Excision right trochanteric pressure sore, Stage IV, with partial ostectomy for osteomyelitis. Operative bone culture positive for E. coli. Tissue culture negative. Pathology of bone predominantly chronic osteomyelitis, focal mild acute osteomye litis and reactive changes Wound care - Wound VAC at 150 mmHg to right thigh. Right ankle ulcer has daily Aquacel-Ag. Today he denies any fever, chills, n/v. Progress of Wound: Right hip and right ankle are stable. Objective Data Objective Data Vital Signs: Vital Signs Temp Pulse Resp BP 97.2 F L 88 18 149/69 H 10/09/20 11:50 10/09/20 11:50 09/17/20 00:26 10/09/20 11:50 Weight: 140 lb Body Mass Index (BMI) 26.3 Charges/Coding Procedures Integumentary [id number]: [id number] Global Visit Physical Exam Const alert and oriented x3 General Appearance: cooperative HEENT normocephalic Eyes PERRL Lymph Lymphatic: no lymphedema noted Resp normal respiratory effort Cardio regular rate GI Palpation: soft Extremity normal capillary refill Skin Wound Narrative: Right lateral ankle ulcer is stable. Right lateral hip ulcer is beefy pink with tunnel into the muscle and bone palpated. Neuro CN's II-XII intact bilaterally Cranial Nerves: CN normal except as noted Psych Appearance: grossly normal Thought Process: normal thought process Debridement Note Debridement Note Post-Debridement Measurements and Additional Note: Post-Debridement Measurements/Treatment WC - Nurse 1 - General Ulcer Assessment Start: 09/25/20 13:47 Freq: Status: Active Protocol: [email or web address].[email or web address] Activity Type Activity Date Activity User E-Sign Co-Sign Detail Recorded Client Recorded Date Recorded By Document 09/25/20 13:47 HARDIK [id number] 09/25/20 14:08 KR Document 10/09/20 11:50 TRAMAINE [id number] 10/09/20 11:55 IN 09/25/20 10/09/20 13:47 11:50 - Today's Visit Information Type of service Follow-up Visit Follow-up Visit (Physician/[facility] (Physician/[facility] ) ) Arrival Mode Wheelchair Wheelchair Patient Identification Verified (Name & Yes ) Height and Weight Body Mass Index (BMI) 26.3 26.3 BMI Classification Overweight Overweight Vital Signs Temperature (97.8 F-99.1 F) 96.6 F L 97.2 F L Temperature Source Temporal Temporal Pulse Rate (60-100) 100 88 Pulse Location Monitor Monitor Blood Pressure (90/60-120/80) 149/69 H Blood Pressure Mean (mm Hg) 95 Source Monitor History Since Last Visit- (Skip if this is Patient's initial visit) Have you changed medications since your No No last visit? Any new allergies or adverse reactions No No Had a fall/change in ADL's that may No No increase risk of falls Signs or symptoms of abuse and/or No No neglect since last visit Have you been in the hospital since your No No last visit? Has dressing in place as prescribed Yes Yes Has compression in place as prescribed N/A Yes Has offloadiing in place as prescribed N/A N/A Experienced any changes in pain level or No management Left Footwear Regular Shoe Regular Shoe Right Footwear Regular Shoe Regular Shoe Pain Scale: 0-10 Numeric Is Patient Pain Free? Yes WC - Nurse 1 - General Ulcer Measurement Start: 09/25/20 13:47 Freq: Status: Active Protocol: Activity Type Activity Date Activity User E-Sign Co-Sign Detail Recorded Client Recorded Date Recorded By Document 09/25/20 13:47 HARDIK [id number] 09/25/20 14:08 KR Document 10/09/20 11:50 AK [id number] 10/09/20 11:55 AK 09/25/20 10/09/20 13:47 11:50 Wound Center Nurse 1 #2 R Hip -Combined with (Name of Wound-Exactly 4 as it is documented) -Current Size (cm) - Length 4.5 6 -Current Size (cm) - Width 6.7 0.7 -Current Size (cm) - Depth 1.5 -Total Square Cm 30.15 4.2 -Photo Taken No -Tunneling Yes -Tunneling Position (O'clock) 12 -Tunneling Distance (cm) 0.7 -Tunneling Position #2 (O'clock) 1 -Tunneling Distance #2 (cm) 3.6 -Undermining/Tunneling No -Undermining/Tunneling Starts (O'clock 7 ) -Undermining/Tunneling Ends (O'clock) 2 -Maximum Distance (cm) 3 -Circular Undermining No -Classification - Pressure Ulcer Stage 4 -Exudate Amt Medium -Exudate Type Serosanguineous Serosanguineous -Wound Margin Distinct, Outline Attached -Granulation Amt Medium (34-66%) -Granulation Quality Red Red -Necrosis Amt Small (1-33%) Medium (34-66%) -Necrotic Tissue Type Adherent Slough -Structure Exposed Muscle,Fat Layer Exposed -Texture (Cammie-wound Skin Appearance) Assessed No Abnormality, Assessed -Moisture (Cammie-wound Skin Appearance) No Abnormality, No Abnormality, Assessed Assessed -Color (Cammie-wound Skin Appearance) No Abnormality, No Abnormality, Assessed Assessed -Temperature (Cammie-wound Skin No Abnormality No Abnormality Appearance) (Pt Warm) (Pt Warm) -Tenderness on Palpation (Cammie-wound No No Skin Appearance) -Ulcer Cleansing Rinsed/ Rinsed/ Irrigated with Irrigated with Saline Saline -Foul Odor after Cleansing No -Anesthetic Used 4% Lidocaine 4% Lidocaine Solution,5% Solution Lidocaine Gel #1 R ankle -Combined with other wound No -Current Size (cm) - Length 1.2 1 -Current Size (cm) - Width 1.4 1 -Current Size (cm) - Depth 0.2 0.1 -Total Square Cm 1.68 1 -Photo Taken No -Tunneling No -Undermining/Tunneling No -Circular Undermining No -Exudate Amt Small Large -Exudate Type Yellow/Green Serosanguineous -Wound Margin Distinct, Distinct, Outline Outline Attached Attached -Granulation Amt None Present (0 None Present (0 %) %) -Slough/Fibrin Yes -Necrosis Amt Small (1-33%) Large (67-100%) -Necrotic Tissue Type Adherent Slough Adherent Slough -Texture (Cammie-wound Skin Appearance) Assessed, Assessed, Scarring Scarring -Moisture (Cammie-wound Skin Appearance) No Abnormality, No Abnormality, Assessed Assessed -Color (Cammie-wound Skin Appearance) No Abnormality, No Abnormality, Assessed Assessed -Temperature (Cammie-wound Skin No Abnormality No Abnormality Appearance) (Pt Warm) (Pt Warm) -Tenderness on Palpation (Cammie-wound No No Skin Appearance) -Ulcer Cleansing Rinsed/ Rinsed/ Irrigated with Irrigated with Saline Saline -Foul Odor after Cleansing No -Anesthetic Used 4% Lidocaine 4% Lidocaine Solution,5% Solution Lidocaine Gel WC - Nurse 2 - General Ulcer CM Notes Start: 09/25/20 13:47 Freq: Status: Active Protocol: Activity Type Activity Date Activity User E-Sign Co-Sign Detail Recorded Client Recorded Date Recorded By Document 09/25/20 14:28 VIELKA [id number] 09/25/20 14:32 Document 10/09/20 11:56 [id number] 10/09/20 12:02 08/09/21 08/23/21 14:28 11:56 Wound Center Nurse 2 #2 R Hip -Time 11:56 -Correct Patient No Yes -Correct Side, Site, Position No Yes -Correct Procedure No Yes -Procedure Performed No Yes -Type of Procedure Debridement -Clinical Debridement Muscle / Fascia -Tissue Removed Muscle -Post Debridement (cm) - Length 4 -Post Debridement (cm) - Width 5.7 -Post Debridement (cm) - Depth 6.7 -Total Square (Post) (cm) 22.8 -Area of Debridement (cm) - Length 4 -Area of Debridement (cm) - Width 5.7 -Total Square (Area) (cm) 22.8 -Tunneling No -Undermining/Tunneling No -Circular Undermining No -Wound/Ulcer Outcome Not Healed Not Healed -Ulcer Cleansing Rinsed/ Irrigated with Saline -Foul Odor after Cleansing No -Bioengineered Tissue No -Bleeding Controlled with Pressure -Offloading No -Treatment Response Procedure Tolerated Well -Debridement - Muscle / Fascia, 1st Yes 20sq cm -Debridement, Muscle/Fascia, ea addt'l 1 20sq cm or part thereof #1 R ankle -Time 14:31 11:57 -Correct Patient Yes Yes -Correct Side, Site, Position Yes Yes -Correct Procedure Yes Yes -Procedure Performed Yes Yes -Type of Procedure Debridement Debridement -Clinical Debridement Subcutaneous Subcutaneous -Tissue Removed Subcutaneous Subcutaneous -Post Debridement (cm) - Length 1.0 1.2 -Post Debridement (cm) - Width 0.8 1 -Post Debridement (cm) - Depth 0.2 0.3 -Total Square (Post) (cm) 0.80 1.2 -Area of Debridement (cm) - Length 1 1.2 -Area of Debridement (cm) - Width 0.8 1 -Total Square (Area) (cm) 0.8 1.2 -Tunneling No No -Undermining/Tunneling No No -Circular Undermining No No -Wound/Ulcer Outcome Not Healed Not Healed -Ulcer Cleansing Rinsed/ Rinsed/ Irrigated with Irrigated with Saline Saline -Foul Odor after Cleansing No No -Bioengineered Tissue No No -Bleeding Controlled with Pressure Pressure -Offloading No No -Treatment Response Procedure Procedure Tolerated Well Tolerated Well -Debridement - Subq, 1st 20sq cm Yes Yes Pain Scale: 0-10 Numeric Is Patient Pain Free? Yes Yes WC - Nurse 3 - General Ulcer D/C NN Start: 09/25/20 13:47 Freq: Status: Active Protocol: Activity Type Activity Date Activity User E-Sign Co-Sign Detail Recorded Client Recorded Date Recorded By Document 09/25/20 14:50 HARDIK [id number] 09/25/20 14:51 HARDIK 09/25/20 14:50 Wound Care Nurse 3 #2 R Hip -Ulcer Cleansing Rinsed/ Irrigated with Saline -Setting (mmHg) 150 -Negative Pressure is Continuous -Regranex (If Applicable) Continue -NPWT Application Charge ($) NPWT </= 50 sq cm #1 R ankle -Primary Dressing Applied Aquacel AG 4x4 -Primary Dressing Covered/Secured with Dry Gauze, Secured with Tape -Aquacel AG 4x4 1 Pain Scale: 0-10 Numeric Is Patient Pain Free? Yes WC - Visit Discharge Discharge Condition Stable Ambulatory Status Wheelchair Transportation Private Auto Wound debrided: Lateral ankle Laterality: Right Type of Debridement: Excisional debridement Anesthesia Used: 5% Lidocaine Gel Depth: Down to and including healthy tissue and in the subcutaneous layer Percentage of wound debrided: 100 Instrument Used: 3mm curette Tissue Removed: Subcutaneous tissue and slough Severity: Fat Layer Exposed Amount of bleeding with debridement: Mild Bleeding Controlled with: Pressure Patient tolerated procedure: Patient tolerated procedure well Additional Wound Wound debrided: lateral hip Laterality: Right Wound Grade/Stage: Stage IV Type of Debridement: Excisional debridement Anesthesia Used: 4% Lidocaine Solution and 5% Lidocaine Gel Depth: Down to and including healthy tissue, in the subcutaneous layer, to muscle and to bone Percentage of wound debrided: 100 Instrument Used: 7mm curette Tissue Removed: Subcutaneous tissue and slough into the muscle with bone exposure Severity: Fat Layer Exposed Amount of bleeding with debridement: Moderate Bleeding Controlled with: Pressure, Compression and gauze and Silver Nitrate Patient tolerated procedure: Patient tolerated procedure well Assessment/Plan Assessment/Plan (1) Diabetic ulcer of right ankle: CODE(S): E11.622 - Type 2 diabetes mellitus with other skin ulcer; L97.319 - Non-pressure chronic ulcer of right ankle with unspecified severity (2) Decubitus ulcer of right hip, stage 4: CODE(S): L89.214 - Pressure ulcer of right hip, stage 4 (3) Osteomyelitis of right hip: CODE(S): M86.9 - Osteomyelitis, unspecified (4) Other acute postprocedural pain: CODE(S): G89.18 - Other acute postprocedural pain (5) Acute postoperative anemia due to expected blood loss: CODE(S): D62 - Acute posthemorrhagic anemia (6) Diabetes: CODE(S): E11.9 - Type 2 diabetes mellitus without complications (7) Smoker: CODE(S): F17.200 - Nicotine dependence, unspecified, uncomplicated PLAN: Wound care - Wound VAC at 150 mgHg to right lateral thigh. Dressings to be changed 3 times per week. Wash with soap and water at the time of dressing changes. Right lateral ankle daily Aquacel-Ag covered by gauze. Operative wound cultures from 09/14/20 on the right hip bone positive E.coli. He is currently on Levaquin. He was referred [facility] with an appointment next Friday. Follow up 3 weeks.
== END 2020-10-17 23:59 ==
LOC: WC 11:15
PROVIDERS: PCP Student in an Organized Health Care Education/Training Program; Referring Provider Family Medicine; Visit Provider Nurse Practitioner Family
DX: E11.622 Type 2 diabetes mellitus with other skin ulcer (principal); L89.214 Pressure ulcer of right hip, stage 4; L97.312 Non-pressure chronic ulcer of right ankle with fat layer exposed; E78.5 Hyperlipidemia, unspecified; I10 Essential (primary) hypertension; F10.20 Alcohol dependence, uncomplicated; B96.20 Unspecified Escherichia coli [E. coli] as the cause of diseases classified elsewhere; E11.69 Type 2 diabetes mellitus with other specified complication; M86.18 Other acute osteomyelitis, other site; M86.68 Other chronic osteomyelitis, other site; F17.200 Nicotine dependence, unspecified, uncomplicated; Z86.14 Personal history of Methicillin resistant Staphylococcus aureus infection
CPT/HCPCS: 11042; 11043; 11046; 97605; 99213; G0463

== ENCOUNTER 2020-11-06 13:30 | Outpatient (RCR) | payer MEDICARE, SELFPAY ==
[2020-10-18 00:31] VITALS: BP 149/69; PULSE 88; RESP 18; TEMP 36.2; BMI 26.3
[2020-10-30 11:47] VITALS: BP 119/36; PULSE 63; RESP 16; TEMP 36.3; BMI 26.3
--- NOTE | 2020-10-30 12:37 | PCM.WC.PN ---
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 History of Wound: [facility] for an initial evaluation of right lower extremity ulcers of the foot, ankle, lateral leg and hip. He has a past medical history significant for type 2 diabetes mellitus, hypertension, hyperlipidemia, anemia, tobacco use and alcoholism. At that time he reported having been sober for about 4 months. He no longer takes Metformin, and states this was discontinued due to causing renal insufficiency. He states his diabetes is currently managed with diet and exercise, though he has been not unable to exercise in recent months. In December 2019, he suffered a fall and a 5 day long-lie, during which time he developed these ulcers. He states he had a stroke and reports subsequent impaired movement and sensation of his right lower extremity from the mid lower leg to his toes. He was admitted to a skilled nursing following hospitalization, and was receiving wound debridement approximately every 2 weeks. He was later discharged home. He is receiving home health care from [facility]. He reports he is able to ambulate with the use of a walker, and also uses a wheelchair at times. Wound cultures in March, showed MRSA. He was treated with Bactrim and Clindamycin. Wound culture on 05/02/20 showed Stenotrophomonas maltophilia. He was treated with Levaquin (poorly tolerated), then switched to Bactrim. Wound culture on 06/16/20 showed Streptococcus agalactiae. He was treated with IV Unasyn and a course of Cefdinir. Right hip x-ray on 06/23/20 did not show evidence of osteomyelitis. Pelvic CT on 07/31/2020 did not show evidence of osteomyelitis. Ulcerating lesion in the lateral posterior aspect of the right buttock with increased markings in the subcutaneous fat. This abuts the underlying gluteus muscle. Right lateral leg ulcer is healed. Surgery 09/14/20 - Excision right trochanteric pressure sore, Stage IV, with partial ostectomy for osteomyelitis. Operative bone culture positive for E. coli. Tissue culture negative. Pathology of bone predominantly chronic osteomyelitis, focal mild acute osteomyelitis and reactive changes Wound care - Wound VAC at 150 mmHg to right thigh. Right ankle ulcer has daily Aquacel-Ag. Today he denies any fever, chills, n/v. Progress of Wound: Right hip ulcer opening is becoming smaller faster than the depth of the ulcer has decreased. The bone is now covered. There are two areas of depth that are by a fibrous membrane. Right lateral ankle stable. Objective Data Objective Data Vital Signs: Vital Signs Temp Pulse Resp BP 97.3 F L 63 16 119/36 L 10/30/20 11:47 10/30/20 11:47 10/30/20 11:47 10/30/20 11:47 Weight: 140 lb Body Mass Index (BMI) 26.3 Charges/Coding Procedures Integumentary [id number]: [id number] Global Visit Physical Exam Const alert and oriented x3 General Appearance: cooperative HEENT normocephalic Eyes PERRL Resp normal respiratory effort Cardio regular rate GI Palpation: soft Extremity normal capillary refill Skin Wound Narrative: Right hip ulcer opening is starting to become smaller faster than the depth is improving. The bone is covered with granulation tissue. There is a fibrous membrane that is palpable that separates the depth of the ulcer. Right lateral ankle ulcer is stable Neuro CN's II-XII intact bilaterally Psych affect normal Debridement Note Debridement Note Wound debrided: lateral hip ulcer Laterality: Right Wound Grade/Stage: Stage IV Type of Debridement: Excisional debridement Anesthesia Used: 4% Lidocaine Solution Depth: Down to and including healthy tissue, in the subcutaneous layer and to muscle Percentage of wound debrided: 100 Instrument Used: 7mm curette Tissue Removed: Subcutaneous tissue and slough into the muscle Severity: Fat Layer Exposed Amount of bleeding with debridement: Mild Bleeding Controlled with: Pressure and Compression and gauze Patient tolerated procedure: Patient tolerated procedure well Post-Debridement Measurements and Additional Note: Post-Debridement Measurements/Treatment - Nurse 1 - General Ulcer Assessment Start: 10/30/20 11:33 Freq: Status: Active Protocol: NADIA Activity Type Activity Date Activity User E-Sign Co-Sign Detail Recorded Client Recorded Date Recorded By Document 10/30/20 11:47 ML [id number] 10/30/20 11:49 ML 10/30/20 11:47 - Today's Visit Information Type of service Follow-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 ) Arrival Mode Wheelchair Transfer Assistance None Patient Identification Verified (Name & Yes ) Patient Requires Transmission-Based No Precautions Safety Precautions NA Height and Weight Body Mass Index (BMI) 26.3 BMI Classification Overweight Vital Signs Temperature (97.8 F-99.1 F) 97.3 F L Temperature Source Temporal Pulse Rate (60-100) 63 Pulse Location Monitor Respiratory Rate (12-18) 16 Respiratory rate source Monitor Blood Pressure (90/60-120/80) 119/36 L Blood Pressure Mean (mm Hg) 63 Source Monitor Position Sitting Blood Pressure Location Right Arm History Since Last Visit- (Skip if this is Patient's initial visit) Have you changed medications since your No last visit? Any new allergies or adverse reactions No Had a fall/change in ADL's that may No increase risk of falls Signs or symptoms of abuse and/or No neglect since last visit Have you been in the hospital since your No last visit? Has dressing in place as prescribed Yes Has compression in place as prescribed Yes Has offloadiing in place as prescribed N/A Experienced any changes in pain level or No management Left Footwear Regular Shoe Right Footwear Regular Shoe WC - Nurse 1 - General Ulcer Measurement Start: 10/30/20 11:33 Freq: Status: Active Protocol: Activity Type Activity Date Activity User E-Sign Co-Sign Detail Recorded Client Recorded Date Recorded By Document 10/30/20 11:47 ML [id number] 10/30/20 11:49 ML 10/30/20 11:47 Wound Center Nurse 1 #6 right ischium -Current Size (cm) - Length 1 -Current Size (cm) - Width 5 -Current Size (cm) - Depth 3.8 -Total Square Cm 5 -Exudate Amt Medium -Exudate Type Serosanguineous -Wound Margin Distinct, Outline Attached -Granulation Amt Medium (34-66%) -Granulation Quality Red -Necrosis Amt Medium (34-66%) -Necrotic Tissue Type Adherent Slough -Texture (Cammie-wound Skin Appearance) Assessed -Moisture (Cammie-wound Skin Appearance) Assessed -Color (Cammie-wound Skin Appearance) Assessed -Temperature (Cammie-wound Skin No Abnormality Appearance) (Pt Warm) -Tenderness on Palpation (Cammie-wound No Skin Appearance) -Ulcer Cleansing Wound Cleanser -Foul Odor after Cleansing No -Anesthetic Used 5% Lidocaine Gel #5 right ankle -Current Size (cm) - Length 0.8 -Current Size (cm) - Width 0.5 -Current Size (cm) - Depth 0.2 -Total Square Cm 0.40 -Exudate Amt Medium -Exudate Type Serosanguineous -Wound Margin Distinct, Outline Attached -Granulation Amt Medium (34-66%) -Granulation Quality Pale -Slough/Fibrin Yes -Necrosis Amt Medium (34-66%) -Necrotic Tissue Type Adherent Slough -Texture (Cammie-wound Skin Appearance) Assessed -Moisture (Cammie-wound Skin Appearance) Assessed -Color (Cammie-wound Skin Appearance) Assessed -Temperature (Cammie-wound Skin No Abnormality Appearance) (Pt Warm) -Tenderness on Palpation (Cammie-wound No Skin Appearance) -Ulcer Cleansing Rinsed/ Irrigated with Saline -Foul Odor after Cleansing No -Anesthetic Used 5% Lidocaine Gel WC - Nurse 2 - General Ulcer CM Notes Start: 10/30/20 11:33 Freq: Status: Active Protocol: Activity Type Activity Date Activity User E-Sign Co-Sign Detail Recorded Client Recorded Date Recorded By Document 10/30/20 11:55 [id number] 10/30/20 12:16 10/30/20 11:55 Wound Center Nurse 2 #6 right ischium -Time 11:56 -Correct Patient Yes -Correct Side, Site, Position Yes -Correct Procedure Yes -Procedure Performed Yes -Type of Procedure Debridement -Clinical Debridement Muscle / Fascia -Tissue Removed Muscle -Post Debridement (cm) - Length 2.5 -Post Debridement (cm) - Width 5 -Post Debridement (cm) - Depth 4 -Total Square (Post) (cm) 12.5 -Area of Debridement (cm) - Length 2.5 -Area of Debridement (cm) - Width 5 -Total Square (Area) (cm) 12.5 -Tunneling Yes -Tunneling Position (O'clock) 2 -Tunneling Distance (cm) 6 -Undermining/Tunneling No -Circular Undermining No -Wound/Ulcer Outcome Not Healed -Ulcer Cleansing Rinsed/ Irrigated with Saline -Foul Odor after Cleansing No -Bioengineered Tissue No -Bleeding Controlled with Pressure -Offloading No -Treatment Response Procedure Tolerated Well -Debridement - Muscle / Fascia, 1st Yes 20sq cm #5 right ankle -Time 11:57 -Correct Patient Yes -Correct Side, Site, Position Yes -Correct Procedure Yes -Procedure Performed Yes -Type of Procedure Debridement -Clinical Debridement Subcutaneous -Tissue Removed Subcutaneous -Post Debridement (cm) - Length 1.4 -Post Debridement (cm) - Width 0.8 -Post Debridement (cm) - Depth 0.3 -Total Square (Post) (cm) 1.12 -Area of Debridement (cm) - Length 1.4 -Area of Debridement (cm) - Width 0.8 -Total Square (Area) (cm) 1.12 -Tunneling No -Undermining/Tunneling No -Circular Undermining No -Wound/Ulcer Outcome Not Healed -Ulcer Cleansing Rinsed/ Irrigated with Saline -Foul Odor after Cleansing No -Bioengineered Tissue No -Bleeding Controlled with Pressure -Offloading No -Treatment Response Procedure Tolerated Well -Debridement - Subq, 1st 20sq cm Yes Pain Scale: 0-10 Numeric Is Patient Pain Free? Yes - Nurse 3 - General Ulcer D/C NN Start: 10/30/20 11:33 Freq: Status: Active Protocol: Activity Type Activity Date Activity User E-Sign Co-Sign Detail Recorded Client Recorded Date Recorded By Document 10/30/20 12:20 ML [id number] 10/30/20 12:22 ML 10/30/20 12:20 Wound Care Nurse 3 #6 right ischium -Ulcer Cleansing Rinsed/ Irrigated with Saline -Foul Odor after Cleansing No -Negative Pressure Wound Therapy Continue -Setting (mmHg) 150 -Negative Pressure is Continuous -NPWT Application Charge ($) NPWT </= 50 sq cm #5 right ankle -Ulcer Cleansing Rinsed/ Irrigated with Saline -Primary Dressing Applied Aquacel AG 2x2 -Primary Dressing Covered/Secured with Dry Gauze, Secured with Tape -Aquacel AG 2x2 1 Right -Tubular Bandage Single Layer -Size of Tubigrip Used Size E -Size E ($) 1 WC - Visit Discharge Discharge Condition Stable Ambulatory Status Wheelchair Medication Reconcilliation completed & No provided to patient/care provider Clinical Summary of Care Provided Yes Additional Wound Wound debrided: lateral ankle ulcer Laterality: Right Type of Debridement: Excisional debridement Anesthesia Used: 5% Lidocaine Gel Depth: Down to and including healthy tissue and in the subcutaneous layer Percentage of wound debrided: 100 Instrument Used: 3mm curette Tissue Removed: Subcutaneous tissue and slough Amount of bleeding with debridement: Mild Bleeding Controlled with: Pressure and Compression and gauze Patient tolerated procedure: Patient tolerated procedure well Assessment/Plan Assessment/Plan (1) Decubitus ulcer of right hip, stage 4: CODE(S): L89.214 - Pressure ulcer of right hip, stage 4 (2) Diabetic ulcer of right ankle: CODE(S): E11.622 - Type 2 diabetes mellitus with other skin ulcer; L97.319 - Non-pressure chronic ulcer of right ankle with unspecified severity (3) Osteomyelitis of right hip: CODE(S): M86.9 - Osteomyelitis, unspecified (4) Acute postoperative anemia due to expected blood loss: CODE(S): D62 - Acute posthemorrhagic anemia (5) History of MRSA infection: CODE(S): Z86.14 - Personal history of Methicillin resistant Staphylococcus aureus infection (6) Diabetes: CODE(S): E11.9 - Type 2 diabetes mellitus without complications PLAN: Wound care - Wound VAC at 150 mgHg to right lateral thigh/hip ulcer. Dressings to be changed 3 times per week. Wash with soap and water at the time of dressing changes. Right lateral ankle daily Aquacel-Ag covered by gauze. Operative wound cultures from 09/14/20 on the right hip bone positive E.coli. He is currently on Levaquin. He was referred [facility] with an appointment next Friday. Follow up one week
[2020-11-06 13:48] VITALS: BP 135/47; PULSE 78; TEMP 35.8; BMI 26.3
--- NOTE | 2020-11-06 17:20 | PCM.WC.PN ---
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 History of Wound: Surgery 09/14/20 - Excision right trochanteric pressure sore, Stage IV, with partial ostectomy for osteomyelitis. Wound care - VAC on the right trochanteric pressure sore. Operative cultures - Bone was positive for E. coli and Soft Tissue was negative. He is currently on Levaquin and will continue them. Patient has appointment to see Infectious Diseases. Pathology - positive for acute and chronic osteomyelitis. Prealbumin from 09/15/20 was 18.1. HgbA1c from 09/14/[address] on 07/31/2020 did not show evidence of osteomyelitis. Ulcerating lesion in the lateral posterior aspect of the right buttock with increased markings in the subcutaneous fat. This abuts the underlying gluteus muscle. Right lateral ANKLE ulcer SHOWS GOOD GRANULATION TISSUE. NO EXPOSED BONE WAS NOTED. WILL CONTINUE DAILY SILVER DRESSING CHANGES. Today he denies any fever, chills, n/v. Progress of Wound: Right hip ulcer opening is becoming smaller faster than the depth of the ulcer has decreased. The bone is now covered. There are two areas of depth that are by a fibrous membrane. Right lateral ankle stable. Objective Data Objective Data Vital Signs: Vital Signs Temp Pulse Resp BP 96.5 F L 78 16 135/47 H 11/06/20 13:48 11/06/20 13:48 10/30/20 11:47 11/06/20 13:48 Weight: 140 lb Body Mass Index (BMI) 26.3 Lab / Micro Data Attestation: I reviewed the patient's lab results. Charges/Coding Procedures Integumentary [id number]: [id number] Berna subq tissue 20 sq cm/< (79 MODIFIER ICD-10 - E11.622, E11.9, I63.9, Z86.14, F17.200, L89.214, M86.9 ) Physical Exam Narrative General - Alert and Oriented HEENT - PERRL. EOMI. Neck - Supple and nontender. No cervical adenopathy. Lungs - Clear to auscultation. Heart - Regular rate and rhythm. Abdomen - Soft and nondistended. Extremities - On the right trochanteric area is a pressure sore that extended to the bone. Osteomyelitis was diagnosed. Clean and granulating well. No odor. On further palpation there was some undermining extending MEDIALLY. Measures 2.2 x 4 x 4 cm. ON THE RIGHT LATERAL ANKLE IS A NONHEALING DIABETIC ULCER THAT MEASURES 1 X 1 X 0.2 CM. GOOD GRANULATION TISSUE PRESENT. NO ODOR. Neuro - CN II-XII grossly intact. Psych - Normal mood and affect. Debridement Note Debridement Note Wound debrided: #5 Right lateral ankle area. Laterality: Right Wound Grade/Stage: 2. Type of Debridement: Excisional debridement Anesthesia Used: 4% Lidocaine Solution Depth: Down to and including healthy tissue and in the subcutaneous layer Percentage of wound debrided: 100 Instrument Used: 3mm curette Tissue Removed: subcutaneous tissue. Severity: Fat Layer Exposed Amount of bleeding with debridement: Mild Bleeding Controlled with: Pressure Patient tolerated procedure: Patient tolerated procedure well Post-Debridement Measurements and Additional Note: Post-Debridement Measurements/Treatment - Nurse 1 - General Ulcer Assessment Start: 10/30/20 11:33 Freq: Status: Active Protocol: NADIA Activity Type Activity Date Activity User E-Sign Co-Sign Detail Recorded Client Recorded Date Recorded By Document 10/30/20 11:47 ML [id number] 10/30/20 11:49 ML Document 11/06/20 13:48 KR [id number] 11/06/20 13:55 KR 10/30/20 11/06/20 11:47 13:48 - Today's Visit Information Type of service Follow-up Visit Follow-up Visit (Physician/STRETCHING MACHINE TENDER FRAME (Physician/STRETCHING MACHINE TENDER FRAME ) ) Arrival Mode Wheelchair Wheelchair Transfer Assistance None Patient Identification Verified (Name & Yes Yes ) Patient Requires Transmission-Based No Precautions Safety Precautions NA Height and Weight Body Mass Index (BMI) 26.3 26.3 BMI Classification Overweight Overweight Vital Signs Temperature (97.8 F-99.1 F) 97.3 F L 96.5 F L Temperature Source Temporal Temporal Pulse Rate (60-100) 63 78 Pulse Location Monitor Monitor Respiratory Rate (12-18) 16 Respiratory rate source Monitor Blood Pressure (90/60-120/80) 119/36 L 135/47 H Blood Pressure Mean (mm Hg) 63 76 Source Monitor Monitor Position Sitting Sitting Blood Pressure Location Right Arm Left Arm History Since Last Visit- (Skip if this is Patient's initial visit) Have you changed medications since your No No last visit? Any new allergies or adverse reactions No No Had a fall/change in ADL's that may No No increase risk of falls Signs or symptoms of abuse and/or No No neglect since last visit Have you been in the hospital since your No No last visit? Has dressing in place as prescribed Yes Yes Has compression in place as prescribed Yes N/A Has offloadiing in place as prescribed N/A N/A Experienced any changes in pain level or No No management Left Footwear Regular Shoe Regular Shoe Right Footwear Regular Shoe Regular Shoe Pain Scale: 0-10 Numeric Is Patient Pain Free? Yes WC - Nurse 1 - General Ulcer Measurement Start: 10/30/20 11:33 Freq: Status: Active Protocol: Activity Type Activity Date Activity User E-Sign Co-Sign Detail Recorded Client Recorded Date Recorded By Document 10/30/20 11:47 ML [id number] 10/30/20 11:49 ML Document 11/06/20 13:48 KR [id number] 11/06/20 13:55 KR 10/30/20 11/06/20 11:47 13:48 Wound Center Nurse 1 #6 right trochanteric area. -Combined with other wound No -Current Size (cm) - Length 1 2.5 -Current Size (cm) - Width 5 4.1 -Current Size (cm) - Depth 3.8 -Total Square Cm 5 10.25 -Photo Taken No -Change in Wound Grade/Stage No -Exudate Amt Medium Medium -Exudate Type Serosanguineous Serosanguineous -Wound Margin Distinct, Distinct, Outline Outline Attached Attached -Granulation Amt Medium (34-66%) Large (67-100%) -Granulation Quality Red Red -Necrosis Amt Medium (34-66%) Large (67-100%) -Necrotic Tissue Type Adherent Slough -Structure Exposed Muscle,Bone -Texture (Cammie-wound Skin Appearance) Assessed No Abnormality, Assessed -Moisture (Cammie-wound Skin Appearance) Assessed No Abnormality, Assessed -Color (Cammie-wound Skin Appearance) Assessed No Abnormality, Assessed -Temperature (Cammie-wound Skin No Abnormality No Abnormality Appearance) (Pt Warm) (Pt Warm) -Tenderness on Palpation (Cammie-wound No Yes Skin Appearance) -Ulcer Cleansing Wound Cleanser Rinsed/ Irrigated with Saline -Foul Odor after Cleansing No No -Anesthetic Used 5% Lidocaine 4% Lidocaine Gel Solution #5 right lateral ankle -Combined with other wound No -Current Size (cm) - Length 0.8 1 -Current Size (cm) - Width 0.5 1.1 -Current Size (cm) - Depth 0.2 0.2 -Total Square Cm 0.40 1.1 -Photo Taken No -Tunneling No -Undermining/Tunneling No -Circular Undermining No -Exudate Amt Medium Medium -Exudate Type Serosanguineous Serosanguineous -Wound Margin Distinct, Distinct, Outline Outline Attached Attached -Granulation Amt Medium (34-66%) Medium (34-66%) -Granulation Quality Pale Red -Slough/Fibrin Yes Yes -Necrosis Amt Medium (34-66%) Medium (34-66%) -Necrotic Tissue Type Adherent Slough Adherent Slough -Structure Exposed N/A -Texture (Cammie-wound Skin Appearance) Assessed No Abnormality, Assessed -Moisture (Cammie-wound Skin Appearance) Assessed No Abnormality, Assessed -Color (Cammie-wound Skin Appearance) Assessed No Abnormality, Assessed -Temperature (Cammie-wound Skin No Abnormality No Abnormality Appearance) (Pt Warm) (Pt Warm) -Tenderness on Palpation (Cammie-wound No No Skin Appearance) -Ulcer Cleansing Rinsed/ Rinsed/ Irrigated with Irrigated with Saline Saline -Foul Odor after Cleansing No No -Anesthetic Used 5% Lidocaine 4% Lidocaine Gel Solution WC - Nurse 2 - General Ulcer CM Notes Start: 10/30/20 11:33 Freq: Status: Active Protocol: Activity Type Activity Date Activity User E-Sign Co-Sign Detail Recorded Client Recorded Date Recorded By Document 10/30/20 11:55 [id number] 10/30/20 12:16 Document 11/06/20 13:59 [id number] 11/06/20 14:09 10/30/20 11/06/20 11:55 13:59 Wound Center Nurse 2 #6 right trochanteric area. -Time 11:56 14:02 -Correct Patient Yes Yes -Correct Side, Site, Position Yes Yes -Correct Procedure Yes Yes -Procedure Performed Yes Yes -Type of Procedure Debridement Debridement -Clinical Debridement Muscle / Fascia Muscle / Fascia -Tissue Removed Muscle Muscle -Post Debridement (cm) - Length 2.5 2.3 -Post Debridement (cm) - Width 5 4 -Post Debridement (cm) - Depth 4 4 -Total Square (Post) (cm) 12.5 9.2 -Area of Debridement (cm) - Length 2.5 2.3 -Area of Debridement (cm) - Width 5 4 -Total Square (Area) (cm) 12.5 9.2 -Tunneling Yes Yes -Tunneling Position (O'clock) 2 2 -Tunneling Distance (cm) 6 6 -Undermining/Tunneling No No -Circular Undermining No No -Wound/Ulcer Outcome Not Healed Not Healed -Ulcer Cleansing Rinsed/ Rinsed/ Irrigated with Irrigated with Saline Saline -Foul Odor after Cleansing No No -Bioengineered Tissue No No -Bleeding Controlled with Pressure Pressure -Offloading No No -Treatment Response Procedure Procedure Tolerated Well Tolerated Well -Debridement - Muscle / Fascia, 1st Yes Yes 20sq cm #5 right lateral ankle -Time 11:57 14:03 -Correct Patient Yes Yes -Correct Side, Site, Position Yes Yes -Correct Procedure Yes Yes -Procedure Performed Yes Yes -Type of Procedure Debridement Debridement -Clinical Debridement Subcutaneous Subcutaneous -Tissue Removed Subcutaneous Subcutaneous -Post Debridement (cm) - Length 1.4 1 -Post Debridement (cm) - Width 0.8 1 -Post Debridement (cm) - Depth 0.3 0.3 -Total Square (Post) (cm) 1.12 1 -Area of Debridement (cm) - Length 1.4 1 -Area of Debridement (cm) - Width 0.8 1 -Total Square (Area) (cm) 1.12 1 -Tunneling No No -Undermining/Tunneling No No -Circular Undermining No No -Wound/Ulcer Outcome Not Healed Not Healed -Ulcer Cleansing Rinsed/ Rinsed/ Irrigated with Irrigated with Saline Saline -Foul Odor after Cleansing No No -Bioengineered Tissue No No -Bleeding Controlled with Pressure Pressure -Offloading No No -Treatment Response Procedure Procedure Tolerated Well Tolerated Well -Debridement - Subq, 1st 20sq cm Yes Yes Pain Scale: 0-10 Numeric Is Patient Pain Free? Yes Yes WC - Nurse 3 - General Ulcer D/C NN Start: 10/30/20 11:33 Freq: Status: Active Protocol: Activity Type Activity Date Activity User E-Sign Co-Sign Detail Recorded Client Recorded Date Recorded By Document 10/30/20 12:20 ML [id number] 10/30/20 12:22 ML Document 11/06/20 14:21 DL [id number] 11/06/20 14:24 DL 10/30/20 11/06/20 12:20 14:21 Wound Care Nurse 3 #6 right trochanteric area. -Ulcer Cleansing Rinsed/ Rinsed/ Irrigated with Irrigated with Saline Saline -Foul Odor after Cleansing No No -Negative Pressure Wound Therapy Continue -Setting (mmHg) 150 -Negative Pressure is Continuous -Other Dressing Moist gauze -Primary Dressing Covered/Secured with Dry Gauze, Secured with Tape -NPWT Application Charge NPWT </= 50 sq cm ($) #5 right lateral ankle. -Ulcer Cleansing Rinsed/ Rinsed/ Irrigated with Irrigated with Saline Saline -Foul Odor after Cleansing No -Primary Dressing Applied Aquacel AG 2x2 Aquacel AG 4x4 -Primary Dressing Covered/Secured with Dry Gauze, Dry Gauze, Secured with Secured with Tape Tape -Aquacel AG 4x4 1 -Aquacel AG 2x2 1 Right -Tubular Bandage Single Layer -Size of Tubigrip Used Size E -Size E ($) 1 Treatment Response Procedure Tolerated Well Pain Scale: 0-10 Numeric Is Patient Pain Free? Yes WC - Visit Discharge Discharge Condition Stable Stable Ambulatory Status Wheelchair Transportation Private Auto Medication Reconcilliation completed & No provided to patient/care provider Clinical Summary of Care Provided Yes Additional Notification Home Health Orders Sent Yes Additional Wound Wound debrided: #6 Right trochanteric area. Laterality: Right Wound Grade/Stage: IV. Type of Debridement: Excisional debridement Anesthesia Used: 4% Lidocaine Solution Depth: Down to and including healthy tissue, in the subcutaneous layer, to muscle and to bone (bone is palpable but not exposed as there is granulation tissue present over the bone.) Percentage of wound debrided: 100 Instrument Used: 7mm curette Tissue Removed: subcutaneous tissue and muscle. Severity: Fat Layer Exposed (muscle is exposed. Bone is palpable but not exposed as there was granulation tissue present over the bone.) Amount of bleeding with debridement: Mild Bleeding Controlled with: Pressure and Compression and gauze Patient tolerated procedure: Patient tolerated procedure well Assessment/Plan Assessment/Plan (1) 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, stage 4: CODE(S): L89.214 - Pressure ulcer of right hip, stage 4 (2) Diabetic ulcer of right ankle: CODE(S): E11.622 - Type 2 diabetes mellitus with other skin ulcer; L97.319 - Non-pressure chronic ulcer of right ankle with unspecified severity (3) Diabetes: CODE(S): E11.9 - Type 2 diabetes mellitus without complications (4) Stroke: CODE(S): I63.9 - Cerebral infarction, unspecified (5) History of MRSA infection: CODE(S): Z86.14 - Personal history of Methicillin resistant Staphylococcus aureus infection (6) Osteomyelitis of right hip: CODE(S): M86.9 - Osteomyelitis, unspecified (7) Smoker: CODE(S): F17.200 - Nicotine dependence, unspecified, uncomplicated PLAN: Continue the VAC to right trochanteric area to be changed three times per week at 150 mmHg continuous suction. Continue Silver dressing changes to right lateral ulcer daily. Operative cultures from 09/14/20 showed E. coli in the bone and was negative or organisms. He is currently on Levaquin. He's also being evaluated by Infectious Diseases. Prealbumin from 09/15/20 was 18.1. Encourage nutritional supplementation with protein to help the healing process. HgbA1c from 09/14/20 was 5.8. For elective surgeries like a myocutaneous flap to close the ulcer, the HgbA1c needs to be less than 8. Discussed with the patient that there is some undermining medially between 2 and 6 oclock. The VAC foam was in deeper than it had before. So the VAC foam needs to be pressed in just a little bit more and reassess at next visit. There is such good granulation tissue and no odor, I am encouraged that this ulcer may possibly close on its own and not need the complex muscle flap surgery to close the pressure ulcer defect right trochanteric area. This is predicated on minimizing pressure, MAXIMIZING protein supplementation and consistent wound care. Otherwise we can discuss at a future date regarding wound closure with a myocutaneous flap. Patient was informed of the risks and complications of the procedure including alternatives to surgery. These were discussed with the patient personally. Patient voices understanding and wishes to proceed with the current plan of wound care and nutrition and minimizing pressure. If the pressure ulcer continues to try and close the skin without having the deeper tissue closed and if continued undermining is present despite VAC treatments, then he would benefit from another excision of the pressure sore and partial ostectomy for osteomyelitis. THIS WOULD OPEN UP THE UNDERMINED AREAS AND ALLOW THE POSTOP CARE WITH THE VAC TO BE WITHIN DIRECT VISION INSTEAD OF ESTIMATING THE AMOUNT OF FOAM TO PUSH INTO THE UNDERMINED AREA UNDER BLIND VISION. Followup one week.
== END 2020-11-16 23:59 ==
LOC: WC 13:30
PROVIDERS: PCP Student in an Organized Health Care Education/Training Program; Referring Provider Family Medicine; Visit Provider Nurse Practitioner Family
DX: E11.622 Type 2 diabetes mellitus with other skin ulcer (principal); L89.214 Pressure ulcer of right hip, stage 4; E78.5 Hyperlipidemia, unspecified; I10 Essential (primary) hypertension; F17.200 Nicotine dependence, unspecified, uncomplicated; F10.21 Alcohol dependence, in remission; Z86.73 Personal history of transient ischemic attack (TIA), and cerebral infarction without residual deficits; Z86.14 Personal history of Methicillin resistant Staphylococcus aureus infection; L97.319 Non-pressure chronic ulcer of right ankle with unspecified severity
CPT/HCPCS: 11042; 11043; 97605

== ENCOUNTER 2020-12-04 14:15 | Outpatient (RCR) | payer MEDICARE, SELFPAY ==
[2020-11-17 00:25] VITALS: BP 135/47; PULSE 78; RESP 16; TEMP 35.8; BMI 26.3
[2020-11-20 13:39] VITALS: TEMP 36.7; BMI 26.3
--- NOTE | 2020-11-20 15:07 | PN.PCM_ITS ---
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 History of Wound: Surgery 09/14/20 - Excision right trochanteric pressure sore, Stage IV, with partial ostectomy for osteomyelitis. Wound care - VAC on the right trochanteric pressure sore. Collagen hydrogel to the right lateral ankle ulcer. Operative cultures - Bone was positive for E. coli and Soft Tissue was negative. He is currently on Levaquin and will continue them. Patient has appointment to see Infectious Diseases. Pathology - positive for acute and chronic osteomyelitis. Prealbumin from 09/15/20 was 18.1. HgbA1c from 09/14/[address] on 07/31/2020 did not show evidence of osteomyelitis. Ulcerating lesion in the lateral posterior aspect of the right buttock with increased markings in the subcutaneous fat. This abuts the underlying gluteus muscle. Right lateral ANKLE ulcer SHOWS GOOD GRANULATION TISSUE. NO EXPOSED BONE WAS NOTED. WILL CONTINUE DAILY SILVER DRESSING CHANGES. Today he denies any fever, chills, n/v. Progress of Wound: Improved. Objective Data Objective Data Vital Signs: Vital Signs Temp Pulse Resp BP 98.1 F 78 16 135/47 H 11/20/20 13:39 11/17/20 00:25 11/17/20 00:25 11/17/20 00:25 Weight: 140 lb Body Mass Index (BMI) 26.3 Charges/Coding Procedures Integumentary [id number]: [id number] Global Visit Physical Exam Const alert and oriented x3 HEENT normocephalic Resp normal respiratory effort Cardio regular rate GI Palpation: soft Extremity normal capillary refill Skin Wound Narrative: Right lateral hip/thigh ulcer is beefyp pink, there is a tunnel area. Right lateral ankle ulcer is improved. Neuro CN's II-XII intact bilaterally Debridement Note Debridement Note Wound debrided: lateral hip/thigh ulcer Laterality: Right Type of Debridement: Excisional debridement Anesthesia Used: 5% Lidocaine Gel Depth: Down to and including healthy tissue and in the subcutaneous layer Percentage of wound debrided: 100 Instrument Used: 5mm curette Tissue Removed: Subcutaneous tissue and slough Severity: Fat Layer Exposed Amount of bleeding with debridement: Mild Bleeding Controlled with: Pressure and Compression and gauze Patient tolerated procedure: Patient tolerated procedure well Post-Debridement Measurements and Additional Note: Post-Debridement Measurements/Treatment DELVIS - Nurse 1 - General Ulcer Assessment Start: 11/20/20 13:38 Freq: Status: Active Protocol: NADIA Activity Type Activity Date Activity User E-Sign Co-Sign Detail Recorded Client Recorded Date Recorded By Document 11/20/20 13:39 TRAMAINE [id number] 11/20/20 13:52 TRAMAINE 11/20/20 13:39 WC - Today's Visit Information Type of service Follow-up Visit (Physician/[employer] ) Arrival Mode Wheelchair Transfer Assistance Other Transfer Assist (Other) SON Patient Identification Verified (Name & Yes ) Patient Requires Transmission-Based No Precautions Safety Precautions NA Height and Weight Body Mass Index (BMI) 26.3 BMI Classification Overweight Vital Signs Temperature (97.8 F-99.1 F) 98.1 F Temperature Source Temporal History Since Last Visit- (Skip if this is Patient's initial visit) Have you changed medications since your No last visit? Any new allergies or adverse reactions No Had a fall/change in ADL's that may No increase risk of falls Signs or symptoms of abuse and/or No neglect since last visit Have you been in the hospital since your No last visit? Has dressing in place as prescribed Yes Has compression in place as prescribed N/A Has offloadiing in place as prescribed N/A Left Footwear Regular Shoe Right Footwear Regular Shoe DELVIS - Nurse 1 - General Ulcer Measurement Start: 11/20/20 13:38 Freq: Status: Active Protocol: Activity Type Activity Date Activity User E-Sign Co-Sign Detail Recorded Client Recorded Date Recorded By Document 11/20/20 13:39 TRAMAINE [id number] 11/20/20 13:52 AL 11/20/20 13:39 Wound Center Nurse 1 #6 right ischium -Combined with other wound No -Current Size (cm) - Length 1 -Current Size (cm) - Width 3 -Current Size (cm) - Depth 4 -Total Square Cm 3 -Photo Taken No -Epithelialization None Present -Tunneling No -Tunneling Position (O'clock) 3 -Tunneling Distance (cm) 4 -Undermining/Tunneling Yes -Undermining/Tunneling Starts (O'clock 3 ) -Undermining/Tunneling Ends (O'clock) 3 -Circular Undermining No -Change in Wound Grade/Stage No -Exudate Amt Medium -Exudate Type Serosanguineous -Wound Margin Distinct, Outline Attached -Granulation Amt Large (67-100%) -Granulation Quality [place] -Necrosis Amt Large (67-100%) -Necrotic Tissue Type Adherent Slough -Texture (Cammie-wound Skin Appearance) No Abnormality, Assessed -Moisture (Cammie-wound Skin Appearance) No Abnormality, Assessed -Color (Cammie-wound Skin Appearance) No Abnormality, Assessed -Temperature (Cammie-wound Skin No Abnormality Appearance) (Pt Warm) -Tenderness on Palpation (Cammie-wound Yes Skin Appearance) -Ulcer Cleansing Rinsed/ Irrigated with Saline -Foul Odor after Cleansing No -Anesthetic Used 4% Lidocaine Solution #5 right ankle -Combined with other wound No -Current Size (cm) - Length 1 -Current Size (cm) - Width 1 -Current Size (cm) - Depth 0.3 -Total Square Cm 1 -Photo Taken No -Epithelialization None Present -Tunneling No -Undermining/Tunneling No -Circular Undermining No -Change in Wound Grade/Stage No -Exudate Amt None Present -Wound Margin Distinct, Outline Attached -Granulation Amt None Present (0 %) -Granulation Quality N/A -Slough/Fibrin No -Necrosis Amt None Present (0 %) -Structure Exposed N/A -Texture (Cammie-wound Skin Appearance) No Abnormality, Assessed -Moisture (Cammie-wound Skin Appearance) No Abnormality, Assessed -Color (Cammie-wound Skin Appearance) No Abnormality, Assessed -Temperature (Cammie-wound Skin No Abnormality Appearance) (Pt Warm) -Tenderness on Palpation (Cammie-wound No Skin Appearance) -Ulcer Cleansing Rinsed/ Irrigated with Saline -Foul Odor after Cleansing No -Anesthetic Used 4% Lidocaine Solution - Nurse 2 - General Ulcer CM Notes Start: 11/20/20 13:38 Freq: Status: Active Protocol: Activity Type Activity Date Activity User E-Sign Co-Sign Detail Recorded Client Recorded Date Recorded By Document 11/20/20 14:07 VIELKA [id number] 11/20/20 14:18 VIELKA 11/20/20 14:07 Wound Center Nurse 2 #6 right ischium -Time 14:08 -Correct Patient Yes -Correct Side, Site, Position Yes -Correct Procedure Yes -Procedure Performed Yes -Type of Procedure Debridement -Clinical Debridement Muscle / Fascia -Tissue Removed Muscle -Post Debridement (cm) - Length 1 -Post Debridement (cm) - Width 2.8 -Post Debridement (cm) - Depth 4 -Total Square (Post) (cm) 2.8 -Area of Debridement (cm) - Length 1 -Area of Debridement (cm) - Width 2.8 -Total Square (Area) (cm) 2.8 -Tunneling Yes -Tunneling Position (O'clock) 2 -Tunneling Distance (cm) 4 -Undermining/Tunneling No -Circular Undermining No -Wound/Ulcer Outcome Not Healed -Ulcer Cleansing Rinsed/ Irrigated with Saline -Foul Odor after Cleansing No -Bioengineered Tissue No -Bleeding Controlled with Pressure -Offloading No -Treatment Response Procedure Tolerated Well -Debridement - Muscle / Fascia, 1st Yes 20sq cm #5 right ankle -Time 14:09 -Correct Patient Yes -Correct Side, Site, Position Yes -Correct Procedure Yes -Procedure Performed Yes -Type of Procedure Debridement -Clinical Debridement Subcutaneous -Tissue Removed Subcutaneous -Post Debridement (cm) - Length 0.9 -Post Debridement (cm) - Width 0.9 -Post Debridement (cm) - Depth 0.2 -Total Square (Post) (cm) 0.81 -Area of Debridement (cm) - Length 0.9 -Area of Debridement (cm) - Width 0.9 -Total Square (Area) (cm) 0.81 -Tunneling No -Undermining/Tunneling No -Circular Undermining No -Wound/Ulcer Outcome Not Healed -Ulcer Cleansing Rinsed/ Irrigated with Saline -Foul Odor after Cleansing No -Bioengineered Tissue No -Bleeding Controlled with Pressure -Offloading No -Treatment Response Procedure Tolerated Well -Debridement - Subq, 1st 20sq cm Yes Pain Scale: 0-10 Numeric Is Patient Pain Free? Yes WC - Nurse 3 - General Ulcer D/C NN Start: 11/20/20 13:38 Freq: Status: Active Protocol: Activity Type Activity Date Activity User E-Sign Co-Sign Detail Recorded Client Recorded Date Recorded By Document 11/20/20 14:23 HARDIK [id number] 11/20/20 14:26 HARDIK 11/20/20 14:23 Wound Care Nurse 3 #6 right ischium -Other Dressing wet to dry -Primary Dressing Covered/Secured with Dry Gauze, Secured with Tape #5 right ankle -Primary Dressing Applied C Hydrogel ($) -Primary Dressing Covered/Secured with Dry Gauze, Secured with Tape Right -Tubular Bandage Double Layer -Size of Tubigrip Used Size D -Size D ($) 2 Left -Tubular Bandage Double Layer -Size of Tubigrip Used Size D -Size D ($) 2 Pain Scale: 0-10 Numeric Is Patient Pain Free? Yes WC - Visit Discharge Discharge Condition Stable Ambulatory Status Wheelchair Transportation Private Auto Accompanied by grandson Additional Wound Wound debrided: Lateral ankle Laterality: Right Type of Debridement: Excisional debridement Anesthesia Used: 5% Lidocaine Gel Depth: Down to and including healthy tissue and in the subcutaneous layer Percentage of wound debrided: 100 Instrument Used: 3mm curette Tissue Removed: Subcutaneous tissue and slough 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, stage 4: CODE(S): L89.214 - Pressure ulcer of right hip, stage 4 (2) Diabetic ulcer of right ankle: CODE(S): E11.622 - Type 2 diabetes mellitus with other skin ulcer; L97.319 - Non-pressure chronic ulcer of right ankle with unspecified severity (3) Diabetes: CODE(S): E11.9 - Type 2 diabetes mellitus without complications (4) Stroke: CODE(S): I63.9 - Cerebral infarction, unspecified (5) History of MRSA infection: CODE(S): Z86.14 - Personal history of Methicillin resistant Staphylococcus aureus infection (6) Osteomyelitis of right hip: CODE(S): M86.9 - Osteomyelitis, unspecified (7) Smoker: CODE(S): F17.200 - Nicotine dependence, unspecified, uncomplicated PLAN: Continue the VAC to right trochanteric area to be changed three times per week at 150 mmHg continuous suction. Double tubigrip for compression. Collagen hydrogel covered with adaptic to the right lateral ankle ulcer daily. Operative cultures from 09/14/20 showed E. coli in the bone and was negative or organisms. He is currently on Levaquin. He's also being evaluated by Infectious Diseases. Prealbumin from 09/15/20 was 18.1. Encourage nutritional supplementation with protein to help the healing process. HgbA1c from 09/14/20 was 5.8. For elective surgeries like a myocutaneous flap to close the ulcer, the HgbA1c needs to be less than 8. Discussed with the patient that there is some undermining medially between 2 and 6 oclock. The VAC foam was in deeper than it had before. So the VAC foam needs to be pressed in just a little bit more and reassess at next visit. There is such good granulation tissue and no odor, I am encouraged that this ulcer may possibly close on its own and not need the complex muscle flap surgery to close the pressure ulcer defect right trochanteric area. This is predicated on minimizing pressure, MAXIMIZING protein supplementation and consistent wound care. Otherwise we can discuss at a future date regarding wound closure with a myocutaneous flap. Patient was informed of the risks and complications of the procedure including alternatives to surgery. These were discussed with the patient personally. Patient voices understanding and wishes to proceed with the current plan of wound care and nutrition and minimizing pressure. If the pressure ulcer continues to try and close the skin without having the deeper tissue closed and if continued undermining is present despite VAC treatments, then he would benefit from another excision of the pressure sore and partial ostectomy for osteomyelitis. THIS WOULD OPEN UP THE UNDERMINED AREAS AND ALLOW THE POSTOP CARE WITH THE VAC TO BE WITHIN DIRECT VISION INSTEAD OF ESTIMATING THE AMOUNT OF FOAM TO PUSH INTO THE UNDERMINED AREA UNDER BLIND VISION. Followup two weeks.
[2020-12-04 14:34] VITALS: BP 153/53; PULSE 78; RESP 17; TEMP 36.1; BMI 26.3
--- NOTE | 2020-12-04 16:18 | PN.PCM_ITS ---
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 History of Wound: Surgery 09/14/20 - Excision right trochanteric pressure sore, Stage IV, with partial ostectomy for osteomyelitis. Wound care - Discontinue wound VAC on the right trochanteric pressure sore due to the opening becoming too small. Will start packing with Dakins 0.25% moistened gauze topped with dry abd. Collagen hydrogel to the right lateral ankle ulcer. Operative cultures - Bone was positive for E. coli and Soft Tissue was negative. He is currently on Levaquin and will continue them. Patient has appointment to see Infectious Diseases. Pathology - positive for acute and chronic osteomyelitis. Prealbumin from 09/15/20 was 18.1. HgbA1c from 09/14/[address] on 07/31/2020 did not show evidence of osteomyelitis. Ulcerating lesion in the lateral posterior aspect of the right buttock with increased markings in the subcutaneous fat. This abuts the underlying gluteus muscle. Right lateral ankle ulcer shows good granulation tissue. No exposed bone was noted. Today he denies any fever, chills, n/v. Progress of Wound: Improved. Objective Data Objective Data Vital Signs: Vital Signs Temp Pulse Resp BP 96.9 F L 78 17 153/53 H 12/04/20 14:34 12/04/20 14:34 12/04/20 14:34 12/04/20 14:34 Weight: 140 lb Body Mass Index (BMI) 26.3 Charges/Coding Procedures Integumentary 111xxx-113xx: 48275 Global Visit Physical Exam Const alert and oriented x3 HEENT normocephalic Resp normal respiratory effort Cardio regular rate GI Palpation: soft Extremity normal capillary refill Skin Wound Narrative: Right lateral hip ulcer is beefy pink, but the tunnel is becoming too small to be able to pack the foam for the wound VAC in. I am not able to get my finger into the opening like I could at his last visit. Cammie wound has red excoriation that has been itchy. Neuro CN's II-XII intact bilaterally Psych Appearance: grossly normal Debridement Note Debridement Note Wound debrided: lateral hip ulcer Laterality: Right Wound Grade/Stage: stage IV Type of Debridement: Excisional debridement Anesthesia Used: 5% Lidocaine Gel Depth: Down to and including healthy tissue, in the subcutaneous layer and to muscle Percentage of wound debrided: 100 Instrument Used: 3mm curette Tissue Removed: Subcutaneous tissue and slough Severity: Fat Layer Exposed Amount of bleeding with debridement: Mild Bleeding Controlled with: Pressure Patient tolerated procedure: Patient tolerated procedure well Post-Debridement Measurements and Additional Note: Post-Debridement Measurements/Treatment WC - Nurse 1 - General Ulcer Assessment Start: 11/20/20 13:38 Freq: Status: Active Protocol: NADIA Activity Type Activity Date Activity User E-Sign Co-Sign Detail Recorded Client Recorded Date Recorded By Document 11/20/20 13:39 AK [id number] 11/20/20 13:52 AK Document 12/04/20 14:34 DL [id number] 12/04/20 14:41 DL 11/20/20 12/04/20 13:39 14:34 - Today's Visit Information Type of service Follow-up Visit Follow-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 ) ) Arrival Mode Wheelchair Wheelchair Transfer Assistance Other None Transfer Assist (Other) SON Patient Identification Verified (Name & Yes Yes ) Patient Requires Transmission-Based No No Precautions Safety Precautions NA NA Height and Weight Body Mass Index (BMI) 26.3 26.3 BMI Classification Overweight Overweight Vital Signs Temperature (97.8 F-99.1 F) 98.1 F 96.9 F L Temperature Source Temporal Temporal Pulse Rate (60-100) 78 Respiratory Rate (12-18) 17 Blood Pressure (90/60-120/80) 153/53 H Blood Pressure Mean (mm Hg) 86 Source Monitor Position Sitting Blood Pressure Location Left Arm History Since Last Visit- (Skip if this is Patient's initial visit) Have you changed medications since your No No last visit? Any new allergies or adverse reactions No No Had a fall/change in ADL's that may No No increase risk of falls Signs or symptoms of abuse and/or No No neglect since last visit Have you been in the hospital since your No No last visit? Has dressing in place as prescribed Yes Yes Has compression in place as prescribed N/A Yes Has offloadiing in place as prescribed N/A N/A Experienced any changes in pain level or No management Left Footwear Regular Shoe Regular Shoe Right Footwear Regular Shoe Regular Shoe Pain Scale: 0-10 Numeric Is Patient Pain Free? Yes WC - Nurse 1 - General Ulcer Measurement Start: 11/20/20 13:38 Freq: Status: Active Protocol: Activity Type Activity Date Activity User E-Sign Co-Sign Detail Recorded Client Recorded Date Recorded By Document 11/20/20 13:39 AK [id number] 11/20/20 13:52 AK Document 12/04/20 14:34 DL [id number] 12/04/20 14:41 DL 11/20/20 12/04/20 13:39 14:34 Wound Center Nurse 1 #6 right ischium -Combined with other wound No -Current Size (cm) - Length 1 0.7 -Current Size (cm) - Width 3 2 -Current Size (cm) - Depth 4 0.2 -Total Square Cm 3 1.4 -Photo Taken No -Epithelialization None Present -Tunneling No Yes -Tunneling Position (O'clock) 3 3 -Tunneling Distance (cm) 4 3.7 -Undermining/Tunneling Yes -Undermining/Tunneling Starts (O'clock 3 ) -Undermining/Tunneling Ends (O'clock) 3 -Circular Undermining No -Change in Wound Grade/Stage No -Exudate Amt Medium Small -Exudate Type Serosanguineous Serosanguineous -Wound Margin Distinct, Distinct, Outline Outline Attached Attached -Granulation Amt Large (67-100%) Medium (34-66%) -Granulation Quality [place] -Necrosis Amt Large (67-100%) Medium (34-66%) -Necrotic Tissue Type Adherent Slough Adherent Slough -Texture (Cammie-wound Skin Appearance) No Abnormality, Assessed Assessed -Moisture (Cammie-wound Skin Appearance) No Abnormality, Assessed Assessed -Color (Cammie-wound Skin Appearance) No Abnormality, Assessed Assessed -Temperature (Cammie-wound Skin No Abnormality No Abnormality Appearance) (Pt Warm) (Pt Warm) -Tenderness on Palpation (Cammie-wound Yes No Skin Appearance) -Ulcer Cleansing Rinsed/ Soap and Water Irrigated with Saline -Foul Odor after Cleansing No No -Anesthetic Used 4% Lidocaine 4% Lidocaine Solution Solution #5 right ankle -Combined with other wound No -Current Size (cm) - Length 1 0.6 -Current Size (cm) - Width 1 0.3 -Current Size (cm) - Depth 0.3 0.2 -Total Square Cm 1 0.18 -Photo Taken No -Epithelialization None Present -Tunneling No -Undermining/Tunneling No -Circular Undermining No -Change in Wound Grade/Stage No -Exudate Amt None Present Small -Exudate Type Serosanguineous -Wound Margin Distinct, Distinct, Outline Outline Attached Attached -Granulation Amt None Present (0 Medium (34-66%) %) -Granulation Quality N/A -Slough/Fibrin No -Necrosis Amt None Present (0 Medium (34-66%) %) -Necrotic Tissue Type Adherent Slough -Structure Exposed N/A -Texture (Cammie-wound Skin Appearance) No Abnormality, Assessed Assessed -Moisture (Cammie-wound Skin Appearance) No Abnormality, Assessed Assessed -Color (Cammie-wound Skin Appearance) No Abnormality, Assessed Assessed -Temperature (Cammie-wound Skin No Abnormality No Abnormality Appearance) (Pt Warm) (Pt Warm) -Tenderness on Palpation (Cammie-wound No No Skin Appearance) -Ulcer Cleansing Rinsed/ Soap and Water Irrigated with Saline -Foul Odor after Cleansing No No -Anesthetic Used 4% Lidocaine 4% Lidocaine Solution Solution WC - Nurse 2 - General Ulcer CM Notes Start: 11/20/20 13:38 Freq: Status: Active Protocol: Activity Type Activity Date Activity User E-Sign Co-Sign Detail Recorded Client Recorded Date Recorded By Document 11/20/20 14:07 [id number] 11/20/20 14:18 Document 12/04/20 14:51 [id number] 12/04/20 14:59 11/20/20 12/04/20 14:07 14:51 Wound Center Nurse 2 #6 right ischium -Time 14:08 14:52 -Correct Patient Yes Yes -Correct Side, Site, Position Yes Yes -Correct Procedure Yes Yes -Procedure Performed Yes Yes -Type of Procedure Debridement Debridement -Clinical Debridement Muscle / Fascia Muscle / Fascia -Tissue Removed Muscle Muscle -Post Debridement (cm) - Length 1 0.8 -Post Debridement (cm) - Width 2.8 2 -Post Debridement (cm) - Depth 4 4.3 -Total Square (Post) (cm) 2.8 1.6 -Area of Debridement (cm) - Length 1 0.8 -Area of Debridement (cm) - Width 2.8 2 -Total Square (Area) (cm) 2.8 1.6 -Tunneling Yes No -Tunneling Position (O'clock) 2 -Tunneling Distance (cm) 4 -Undermining/Tunneling No No -Circular Undermining No No -Wound/Ulcer Outcome Not Healed Not Healed -Ulcer Cleansing Rinsed/ Rinsed/ Irrigated with Irrigated with Saline Saline -Foul Odor after Cleansing No No -Bioengineered Tissue No No -Bleeding Controlled with Pressure Pressure -Offloading No No -Treatment Response Procedure Procedure Tolerated Well Tolerated Well -Debridement - Muscle / Fascia, 1st Yes Yes 20sq cm #5 right ankle -Time 14:09 14:53 -Correct Patient Yes Yes -Correct Side, Site, Position Yes Yes -Correct Procedure Yes Yes -Procedure Performed Yes Yes -Type of Procedure Debridement Debridement -Clinical Debridement Subcutaneous Subcutaneous -Tissue Removed Subcutaneous Subcutaneous -Post Debridement (cm) - Length 0.9 0.7 -Post Debridement (cm) - Width 0.9 0.6 -Post Debridement (cm) - Depth 0.2 0.2 -Total Square (Post) (cm) 0.81 0.42 -Area of Debridement (cm) - Length 0.9 0.7 -Area of Debridement (cm) - Width 0.9 0.6 -Total Square (Area) (cm) 0.81 0.42 -Tunneling No No -Undermining/Tunneling No No -Circular Undermining No No -Wound/Ulcer Outcome Not Healed Not Healed -Ulcer Cleansing Rinsed/ Rinsed/ Irrigated with Irrigated with Saline Saline -Foul Odor after Cleansing No No -Bioengineered Tissue No No -Bleeding Controlled with Pressure Pressure -Offloading No No -Treatment Response Procedure Procedure Tolerated Well Tolerated Well -Debridement - Subq, 1st 20sq cm Yes Yes Pain Scale: 0-10 Numeric Is Patient Pain Free? Yes Yes WC - Nurse 3 - General Ulcer D/C NN Start: 11/20/20 13:38 Freq: Status: Active Protocol: Activity Type Activity Date Activity User E-Sign Co-Sign Detail Recorded Client Recorded Date Recorded By Document 11/20/20 14:23 KR [id number] 11/20/20 14:26 KR Document 12/04/20 15:12 ML [id number] 12/04/20 15:14 ML 11/20/20 12/04/20 14:23 15:12 Wound Care Nurse 3 #6 right ischium -Ulcer Cleansing Rinsed/ Irrigated with Saline -Other Dressing wet to dry pack with moistened guaze -Primary Dressing Covered/Secured with Dry Gauze, Dry Gauze, Secured with Secured with Tape Tape #5 right ankle -Ulcer Cleansing Rinsed/ Irrigated with Saline -Foul Odor after Cleansing No -Primary Dressing Applied C Hydrogel ($) -Other Dressing hydrogel, adaptic -Primary Dressing Covered/Secured with Dry Gauze, Dry Gauze, Secured with Secured with Tape Tape Right -Tubular Bandage Double Layer Double Layer -Size of Tubigrip Used Size D Size E -Size D ($) 2 -Size E ($) 2 Left -Tubular Bandage Double Layer -Size of Tubigrip Used Size D -Size D ($) 2 Pain Scale: 0-10 Numeric Is Patient Pain Free? 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, stage 4: CODE(S): L89.214 - Pressure ulcer of right hip, stage 4 (2) Diabetic ulcer of right ankle: CODE(S): E11.622 - Type 2 diabetes mellitus with other skin ulcer; L97.319 - Non-pressure chronic ulcer of right ankle with unspecified severity (3) Diabetes: CODE(S): E11.9 - Type 2 diabetes mellitus without complications (4) Stroke: CODE(S): I63.9 - Cerebral infarction, unspecified (5) History of MRSA infection: CODE(S): Z86.14 - Personal history of Methicillin resistant Staphylococcus aureus infection (6) Osteomyelitis of right hip: CODE(S): M86.9 - Osteomyelitis, unspecified (7) Smoker: CODE(S): F17.200 - Nicotine dependence, unspecified, uncomplicated PLAN: Wound care - Discontinue wound VAC on the right trochanteric pressure sore due to the opening becoming too small. Will start packing with Dakins 0.25% moistened gauze topped with dry abd. Collagen hydrogel covered with adaptic and topped with dry gauze to the right lateral ankle ulcer daily. He has some itchy excoriation in the periwound area that we will start nystatin cream twice daily to the area. Operative cultures from 09/14/20 showed E. coli in the bone and was negative or organisms. He is currently on Levaquin. He's also being evaluated by Infectious Diseases. Prealbumin from 09/15/20 was 18.1. Encourage nutritional supplementation with protein to help the healing process. HgbA1c from 09/14/20 was 5.8. For elective surgeries like a myocutaneous flap to close the ulcer, the HgbA1c needs to be less than 8. I will discuss with Dr. Fenton about the options he discussed with the patient about possibly doing another excision of the pressure sore because it is becoming difficult to pack. Discussed with the patient that there is some undermining medially between 2 and 6 oclock. The VAC foam was in deeper than it had before. So the VAC foam needs to be pressed in just a little bit more and reassess at next visit. There is such good granulation tissue and no odor, I am encouraged that this ulcer may possibly close on its own and not need the complex muscle flap surgery to close the pressure ulcer defect right trochanteric area. This is predicated on minimizing pressure, MAXIMIZING protein supplementation and consistent wound care. Otherwise we can discuss at a future date regarding wound closure with a myocutaneous flap. Patient was informed of the risks and complications of the procedure including alternatives to surgery. These were discussed with the patient personally. Patient voices understanding and wishes to proceed with the current plan of wound care and nutrition and minimizing pressure. If the pressure ulcer continues to try and close the skin without having the deeper tissue closed and if continued undermining is present despite VAC treatm ents, then he would benefit from another excision of the pressure sore and partial ostectomy for osteomyelitis. THIS WOULD OPEN UP THE UNDERMINED AREAS AND ALLOW THE POSTOP CARE WITH THE VAC TO BE WITHIN DIRECT VISION INSTEAD OF ESTIMATING THE AMOUNT OF FOAM TO PUSH INTO THE UNDERMINED AREA UNDER BLIND VISION. Followup two weeks.
== END 2020-12-17 23:59 ==
LOC: WC 14:15
PROVIDERS: PCP Student in an Organized Health Care Education/Training Program; Referring Provider Family Medicine; Visit Provider Nurse Practitioner Family
DX: E11.622 Type 2 diabetes mellitus with other skin ulcer (principal); L89.214 Pressure ulcer of right hip, stage 4; M86.68 Other chronic osteomyelitis, other site; E11.69 Type 2 diabetes mellitus with other specified complication; L97.312 Non-pressure chronic ulcer of right ankle with fat layer exposed; Z86.14 Personal history of Methicillin resistant Staphylococcus aureus infection
CPT/HCPCS: 11042; 11043

== ENCOUNTER 2021-01-08 14:15 | Outpatient (RCR) | payer MEDICARE, SELFPAY ==
[2020-12-18 00:20] VITALS: BP 153/53; PULSE 78; RESP 17; TEMP 36.1; BMI 26.3
[2020-12-18 14:17] VITALS: BP 138/78; PULSE 74; TEMP 35.9; BMI 26.3
--- NOTE | 2020-12-18 14:37 | PN.PCM_ITS ---
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 History of Wound: Surgery 09/14/20 - Excision right trochanteric pressure sore, Stage IV, with partial ostectomy for osteomyelitis. Wound care - Collagen hydrogel to the right lateral ankle ulcer and the right lateral hip/upper thigh ulcer. Operative cultures - Bone was positive for E. coli and Soft Tissue was negative. He is currently on Levaquin and will continue them. Patient has appointment to see Infectious Diseases. Pathology - positive for acute and chronic osteomyelitis. Prealbumin from 09/15/20 was 18.1. HgbA1c from 09/14/[address] on 07/31/2020 did not show evidence of osteomyelitis. Ulcerating lesion in the lateral posterior aspect of the right buttock with increased markings in the subcutaneous fat. This abuts the underlying gluteus muscle. Right lateral ankle ulcer shows good granulation tissue. No exposed bone was noted. Today he denies any fever, chills, n/v. Progress of Wound: Improved. Objective Data Objective Data Vital Signs: Vital Signs Temp Pulse Resp BP 96.7 F L 74 17 138/78 H 12/18/20 14:17 12/18/20 14:17 12/18/20 00:20 12/18/20 14:17 Weight: 140 lb Body Mass Index (BMI) 26.3 Charges/Coding Procedures Integumentary 111xxx-113xx: 90547 Berna subq tissue 20 sq cm/< Physical Exam Const alert and oriented x3 HEENT normocephalic Head and Scalp: atraumatic Eyes PERRL Lymph Lymphatic: no lymphedema noted Resp normal respiratory effort Cardio regular rate GI non-tender Extremity normal capillary refill Extremity Narrative: +1 edema of right lower extremity. Skin Wound Narrative: Right lateral hip/thigh ulcer tunnel has closed. There is granulation tissue present. Right lateral ankle ulcer is shower little improvement. There is fibrous scar tissue present. Neuro CN's II-XII intact bilaterally Psych Appearance: grossly normal Debridement Note Debridement Note Wound debrided: lateral thigh/hip ulcer Laterality: Right Type of Debridement: Excisional debridement Anesthesia Used: 5% Lidocaine Gel Depth: Down to and including healthy tissue and in the subcutaneous layer Percentage of wound debrided: 100 Instrument Used: 3mm curette Tissue Removed: Subcutaneous tissue and slough Severity: Fat Layer Exposed Amount of bleeding with debridement: Mild Bleeding Controlled with: Pressure and Compression and gauze Patient tolerated procedure: Patient tolerated procedure well Post-Debridement Measurements and Additional Note: Post-Debridement Measurements/Treatment - Nurse 1 - General Ulcer Assessment Start: 12/18/20 14:17 Freq: Status: Active Protocol: NADIA Activity Type Activity Date Activity User E-Sign Co-Sign Detail Recorded Client Recorded Date Recorded By Document 12/18/20 14:17 HARDIK [id number] 12/18/20 14:18 HARDIK 12/18/20 14:17 - Today's Visit Information Type of service 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 Any new allergies or adverse reactions No Had a fall/change in ADL's that may No increase risk of falls Signs or symptoms of abuse and/or No neglect since last visit Have you been in the hospital since your No last visit? Has dressing in place as prescribed Yes Has compression in place as prescribed N/A Has offloadiing in place as prescribed N/A Experienced any changes in pain level or No management Left Footwear Regular Shoe Right Footwear Regular Shoe Pain Scale: 0-10 Numeric Is Patient Pain Free? Yes - Nurse 1 - General Ulcer Measurement Start: 12/18/20 14:17 Freq: Status: Active Protocol: Activity Type Activity Date Activity User E-Sign Co-Sign Detail Recorded Client Recorded Date Recorded By Document 12/18/20 14:17 HARDIK [id number] 12/18/20 14:18 HARDIK 12/18/20 14:17 Wound Center Nurse 1 #5 right ankle -Current Size (cm) - Length 0.4 -Current Size (cm) - Width 0.3 -Current Size (cm) - Depth 0.2 -Total Square Cm 0.12 -Exudate Amt Small -Exudate Type Serosanguineous -Wound Margin Distinct, Outline Attached -Granulation Amt Small (1-33%) -Granulation Quality [place] -Necrosis Amt Small (1-33%) -Necrotic Tissue Type Adherent Slough -Texture (Cammie-wound Skin Appearance) Assessed, Scarring -Moisture (Cammie-wound Skin Appearance) No Abnormality, Assessed -Color (Cammie-wound Skin Appearance) No Abnormality, Assessed -Temperature (Cammie-wound Skin No Abnormality Appearance) (Pt Warm) -Tenderness on Palpation (Cammie-wound No Skin Appearance) -Ulcer Cleansing Rinsed/ Irrigated with Saline -Foul Odor after Cleansing No -Anesthetic Used 5% Lidocaine Gel WC - Nurse 2 - General Ulcer CM Notes Start: 12/18/20 14:17 Freq: Status: Active Protocol: Activity Type Activity Date Activity User E-Sign Co-Sign Detail Recorded Client Recorded Date Recorded By Document 12/18/20 14:22 VIELKA [id number] 12/18/20 14:31 VIELKA 12/18/20 14:22 Wound Center Nurse 2 #6 right Hip -Time 14:25 -Correct Patient Yes -Correct Side, Site, Position Yes -Correct Procedure Yes -Procedure Performed Yes -Type of Procedure Debridement -Clinical Debridement Subcutaneous -Tissue Removed Subcutaneous -Post Debridement (cm) - Length 0.4 -Post Debridement (cm) - Width 1.3 -Post Debridement (cm) - Depth 0.6 -Total Square (Post) (cm) 0.52 -Area of Debridement (cm) - Length 0.4 -Area of Debridement (cm) - Width 1.3 -Total Square (Area) (cm) 0.52 -Tunneling No -Undermining/Tunneling No -Circular Undermining No -Wound/Ulcer Outcome Not Healed -Ulcer Cleansing Rinsed/ Irrigated with Saline -Foul Odor after Cleansing No -Bioengineered Tissue No -Bleeding Controlled with Pressure -Offloading No -Treatment Response Procedure Tolerated Well -Debridement - Subq, 1st 20sq cm Yes #5 right ankle -Time 14:28 -Correct Patient Yes -Correct Side, Site, Position Yes -Correct Procedure Yes -Procedure Performed Yes -Type of Procedure Debridement -Clinical Debridement Subcutaneous -Tissue Removed Subcutaneous -Post Debridement (cm) - Length 0.9 -Post Debridement (cm) - Width 0.8 -Post Debridement (cm) - Depth 0.2 -Total Square (Post) (cm) 0.72 -Area of Debridement (cm) - Length 0.9 -Area of Debridement (cm) - Width 0.8 -Total Square (Area) (cm) 0.72 -Tunneling No -Undermining/Tunneling No -Circular Undermining No -Wound/Ulcer Outcome Not Healed -Ulcer Cleansing Rinsed/ Irrigated with Saline -Foul Odor after Cleansing No -Bioengineered Tissue No -Bleeding Controlled with Pressure -Offloading No -Treatment Response Procedure Tolerated Well -Debridement - Subq, 1st 20sq cm No Pain Scale: 0-10 Numeric Is Patient Pain Free? Yes Additional Wound Wound debrided: lateral ankle ulcer Laterality: Right Type of Debridement: Excisional debridement and Selective debridement Anesthesia Used: 5% Lidocaine Gel Depth: Down to and including healthy tissue and in the subcutaneous layer Percentage of wound debrided: 100 Instrument Used: 3mm curette Tissue Removed: Subcutaneous tissue and slough, especially the fibrous edges of the ulcer. 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, stage 4: CODE(S): L89.214 - Pressure ulcer of right hip, stage 4 (2) Diabetic ulcer of right lower leg: CODE(S): E11.622 - Type 2 diabetes mellitus with other skin ulcer; L97.919 - Non-pressure chronic ulcer of unspecified part of right lower leg with unspecified severity (3) Diabetes: CODE(S): E11.9 - Type 2 diabetes mellitus without complications (4) Stroke: CODE(S): I63.9 - Cerebral infarction, unspecified (5) History of MRSA infection: CODE(S): Z86.14 - Personal history of Methicillin resistant Staphylococcus aureus infection (6) Osteomyelitis of right hip: CODE(S): M86.9 - Osteomyelitis, unspecified (7) Smoker: CODE(S): F17.200 - Nicotine dependence, unspecified, uncomplicated PLAN: Wound care - The right trochanteric/lateral hip pressure ulcer tunnel has closed. Will start using collagen hydrogel covered with adaptic and covered with gauze daily on the right hip and the right lateral ankle ulcer. He has some itchy excoriation in the periwound area that we started nystatin cream twice daily to the area and it is slowly improving. The concern with the right trochanteric/lateral hip/proximal thigh tunnel closing is that the undermining could fill up with fluid and the pressure may cause the ulcer to reopen again in the future. This may require further operative debridements. Patient and his grandson verbalized understanding to this. The would like to have this ulcer heal and see what happens. Operative cultures from 09/14/20 showed E. coli in the bone and was negative or organisms. He is currently on Levaquin. He's also being evaluated by Infectious Diseases. Prealbumin from 09/15/20 was 18.1. Encourage nutritional supplementation with protein to help the healing process. HgbA1c from 09/14/20 was 5.8. For elective surgeries like a myocutaneous flap to close the ulcer, the HgbA1c needs to be less than 8. Followup two weeks.
--- NOTE | 2020-12-28 08:41 | WC ---
Angie from [facility] called concerned that patient's right lat eral ankle ulcer has increase redness, edema and drainage. Patient is afebrile and there is no s/s of infection to further loulou-ulcer. Notified Ginette Alvarez regarding this. [facility] nurse will see patient on friday again to evaluate the ulcer, she was advised to recommend patient to go to ER if the ulcer looks worse. Patient is scheduled to see Ginette at the [facility] on Friday.
[2021-01-01 13:43] VITALS: BP 138/72; PULSE 64; TEMP 36.9; BMI 26.3
--- NOTE | 2021-01-01 15:33 | PN.PCM_ITS ---
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 History of Wound: Surgery 09/14/20 - Excision right trochanteric pressure sore, Stage IV, with partial ostectomy for osteomyelitis. Wound care - Collagen hydrogel to the right lateral hip/upper thigh ulcer, will start January to the right lateral ankle ulcer. RICHARDSON wrap for compression. Wound culture of the right lateral culture was obtained today, 01/01/21. Depending on the results of the culture, it may necessitate the need to treat with antibiotics. Operative cultures - Bone was positive for E. coli and Soft Tissue was negative. He is currently on Levaquin and will continue them. Patient has appointment to see Infectious Diseases. Pathology - positive for acute and chronic osteomyelitis. Prealbumin from 09/15/20 was 18.1. HgbA1c from 09/14/[address] on 07/31/2020 did not show evidence of osteomyelitis. Ulcerating lesion in the lateral posterior aspect of the right buttock with increased markings in the subcutaneous fat. This abuts the underlying gluteus muscle. Right lateral ankle ulcer shows good granulation tissue. No exposed bone was noted. Today he denies any fever, chills, n/v. Progress of Wound: Right lateral hip ulcer is much improved. Right lateral ankle ulcer appears larger. Culture obtained today. Objective Data Objective Data Vital Signs: Vital Signs Temp Pulse Resp BP 98.4 F 64 17 138/72 H 01/01/21 13:43 01/01/21 13:43 12/18/20 00:20 01/01/21 13:43 Weight: 140 lb Body Mass Index (BMI) 26.3 Charges/Coding Procedures Integumentary 111xxx-113xx: [id number] Berna subq tissue 20 sq cm/< Physical Exam Const alert and oriented x3 General Appearance: cooperative HEENT normocephalic Resp normal respiratory effort Cardio regular rate GI non-tender Palpation: soft Extremity normal capillary refill and no calf tenderness Extremity Narrative: +3 edema of right leg. Skin Wound Narrative: Right lateral hip ulcer is much improved today. Left lateral ankle ulcer has increased redness and drainage. Neuro CN's II-XII intact bilaterally Psych Appearance: grossly normal Debridement Note Debridement Note Wound debrided: lateral hip ulcer Laterality: Right Type of Debridement: Excisional debridement Anesthesia Used: 5% Lidocaine Gel Depth: Down to and including healthy tissue and in the subcutaneous layer Percentage of wound debrided: 100 Instrument Used: 3mm curette Tissue Removed: Subcutaneous tissue and slough Severity: Fat Layer Exposed Amount of bleeding with debridement: Mild Bleeding Controlled with: Pressure Patient tolerated procedure: Patient tolerated procedure well Post-Debridement Measurements and Additional Note: Post-Debridement Measurements/Treatment WC - Nurse 1 - General Ulcer Assessment Start: 12/18/20 14:17 Freq: Status: Active Protocol: NADIA Activity Type Activity Date Activity User E-Sign Co-Sign Detail Recorded Client Recorded Date Recorded By Document 12/18/20 14:17 HARDIK [id number] 12/18/20 14:18 KR Document 01/01/21 13:43 HARDIK [id number] 01/01/21 13:46 KR 12/18/20 01/01/21 14:17 13:43 DELVIS - Today's Visit Information Type of service Follow-up Visit Follow-up Visit (Physician/RELEASE OF INFORMATION CLERK (Physician/RELEASE OF INFORMATION CLERK ) ) Arrival Mode Wheelchair Wheelchair Patient Identification Verified (Name & Yes Yes ) Height and Weight Body Mass Index (BMI) 26.3 26.3 BMI Classification Overweight Overweight Vital Signs Temperature (97.8 F-99.1 F) 96.7 F L 98.4 F Temperature Source Temporal Temporal Pulse Rate (60-100) 74 64 Pulse Location Monitor Monitor Blood Pressure (90/60-120/80) 138/78 H 138/72 H Blood Pressure Mean (mm Hg) 98 94 Source Monitor Monitor Position Sitting Sitting Blood Pressure Location Right Arm Left Arm History Since Last Visit- (Skip if this is Patient's initial visit) Have you changed medications since your No No last visit? Any new allergies or adverse reactions No No Had a fall/change in ADL's that may No No increase risk of falls Signs or symptoms of abuse and/or No neglect since last visit Have you been in the hospital since your No No last visit? Has dressing in place as prescribed Yes Yes Has compression in place as prescribed N/A Yes Has offloadiing in place as prescribed N/A N/A Experienced any changes in pain level or No management Left Footwear Regular Shoe Regular Shoe Right Footwear Regular Shoe Regular Shoe Pain Scale: 0-10 Numeric Is Patient Pain Free? Yes Yes WC - Nurse 1 - General Ulcer Measurement Start: 12/18/20 14:17 Freq: Status: Active Protocol: Activity Type Activity Date Activity User E-Sign Co-Sign Detail Recorded Client Recorded Date Recorded By Document 12/18/20 14:17 KR [id number] 12/18/20 14:18 KR Document 01/01/21 13:43 KR [id number] 01/01/21 13:46 KR 12/18/20 01/01/21 14:17 13:43 Wound Center Nurse 1 #6 right Hip -Current Size (cm) - Length 0.3 -Current Size (cm) - Width 0.3 -Current Size (cm) - Depth 0.1 -Total Square Cm 0.09 -Exudate Amt Small -Exudate Type Serosanguineous -Wound Margin Distinct, Outline Attached -Granulation Amt Small (1-33%) -Granulation Quality Red -Necrosis Amt Small (1-33%) -Necrotic Tissue Type Adherent Slough -Texture (Cammie-wound Skin Appearance) Assessed, Scarring -Moisture (Cammie-wound Skin Appearance) No Abnormality, Assessed -Color (Cammie-wound Skin Appearance) No Abnormality, Assessed -Temperature (Cammie-wound Skin No Abnormality Appearance) (Pt Warm) -Tenderness on Palpation (Cammie-wound No Skin Appearance) -Ulcer Cleansing Rinsed/ Irrigated with Saline -Foul Odor after Cleansing No -Anesthetic Used 5% Lidocaine Gel #5 right ankle -Current Size (cm) - Length 0.4 0.8 -Current Size (cm) - Width 0.3 0.7 -Current Size (cm) - Depth 0.2 0.3 -Total Square Cm 0.12 0.56 -Exudate Amt Small Small -Exudate Type Serosanguineous Serosanguineous -Wound Margin Distinct, Distinct, Outline Outline Attached Attached -Granulation Amt Small (1-33%) Medium (34-66%) -Granulation Quality [place] Red -Necrosis Amt Small (1-33%) Medium (34-66%) -Necrotic Tissue Type Adherent Slough Adherent Slough -Texture (Cammie-wound Skin Appearance) Assessed, Assessed, Scarring Scarring -Moisture (Cammie-wound Skin Appearance) No Abnormality, No Abnormality, Assessed Assessed -Color (Cammie-wound Skin Appearance) No Abnormality, No Abnormality, Assessed Assessed -Temperature (Cammie-wound Skin No Abnormality No Abnormality Appearance) (Pt Warm) (Pt Warm) -Tenderness on Palpation (Cammie-wound No No Skin Appearance) -Ulcer Cleansing Rinsed/ Rinsed/ Irrigated with Irrigated with Saline Saline -Foul Odor after Cleansing No No -Anesthetic Used 5% Lidocaine 5% Lidocaine Gel Gel WC - Nurse 2 - General Ulcer CM Notes Start: 12/18/20 14:17 Freq: Status: Active Protocol: Activity Type Activity Date Activity User E-Sign Co-Sign Detail Recorded Client Recorded Date Recorded By Document 12/18/20 14:22 [id number] 12/18/20 14:31 Document 01/01/21 13:59 [id number] 01/01/21 14:03 12/18/20 01/01/21 14:22 13:59 Wound Center Nurse 2 #6 right Hip -Time 14:25 13:59 -Correct Patient Yes Yes -Correct Side, Site, Position Yes Yes -Correct Procedure Yes Yes -Procedure Performed Yes Yes -Type of Procedure Debridement Debridement -Clinical Debridement Subcutaneous Subcutaneous -Tissue Removed Subcutaneous Subcutaneous -Post Debridement (cm) - Length 0.4 0.5 -Post Debridement (cm) - Width 1.3 0.5 -Post Debridement (cm) - Depth 0.6 0.1 -Total Square (Post) (cm) 0.52 0.25 -Area of Debridement (cm) - Length 0.4 0.5 -Area of Debridement (cm) - Width 1.3 0.5 -Total Square (Area) (cm) 0.52 0.25 -Tunneling No -Undermining/Tunneling No No -Circular Undermining No No -Wound/Ulcer Outcome Not Healed Not Healed -Ulcer Cleansing Rinsed/ Rinsed/ Irrigated with Irrigated with Saline Saline -Foul Odor after Cleansing No No -Bioengineered Tissue No No -Bleeding Controlled with Pressure Pressure -Offloading No No -Treatment Response Procedure Procedure Tolerated Well Tolerated Well -Debridement - Subq, 1st 20sq cm Yes No #5 right ankle -Time 14:28 14:00 -Correct Patient Yes Yes -Correct Side, Site, Position Yes Yes -Correct Procedure Yes Yes -Procedure Performed Yes Yes -Type of Procedure Debridement Debridement -Clinical Debridement Subcutaneous Subcutaneous -Tissue Removed Subcutaneous Subcutaneous -Post Debridement (cm) - Length 0.9 1.5 -Post Debridement (cm) - Width 0.8 1.5 -Post Debridement (cm) - Depth 0.2 0.3 -Total Square (Post) (cm) 0.72 2.25 -Area of Debridement (cm) - Length 0.9 1.5 -Area of Debridement (cm) - Width 0.8 1.5 -Total Square (Area) (cm) 0.72 2.25 -Tunneling No No -Undermining/Tunneling No No -Circular Undermining No No -Wound/Ulcer Outcome Not Healed Not Healed -Ulcer Cleansing Rinsed/ Rinsed/ Irrigated with Irrigated with Saline Saline -Foul Odor after Cleansing No No -Bioengineered Tissue No No -Bleeding Controlled with Pressure Pressure -Offloading No No -Treatment Response Procedure Procedure Tolerated Well Tolerated Well -Debridement - Subq, 1st 20sq cm No Yes Pain Scale: 0-10 Numeric Is Patient Pain Free? Yes Yes - Nurse 3 - General Ulcer D/C NN Start: 12/18/20 14:17 Freq: Status: Active Protocol: Activity Type Activity Date Activity User E-Sign Co-Sign Detail Recorded Client Recorded Date Recorded By Document 12/18/20 14:38 [id number] 12/18/20 14:39 Document 01/01/21 14:12 KR [id number] 01/01/21 14:13 12/18/20 01/01/21 14:38 14:12 Wound Care Nurse 3 #6 right Hip -Primary Dressing Applied C Hydrogel ($) C Hydrogel ($) -Primary Dressing Covered/Secured with Dry Gauze, Dry Gauze, Secured with Secured with Tape Tape #5 right ankle -Primary Dressing Applied C Hydrogel ($) Promogran -Primary Dressing Covered/Secured with Dry Gauze, Dry Gauze, Secured with Secured with Tape Tape -Promogran 1 Right -Tubular Bandage Double Layer -Size of Tubigrip Used Size E -Size E ($) 2 Pain Scale: 0-10 Numeric Is Patient Pain Free? Yes Yes - Visit Discharge Discharge Condition Stable Stable Ambulatory Status Wheelchair Wheelchair Transportation Private Auto Private Auto Accompanied by devan hartman Additional Wound Wound debrided: lateral ankle ulcer Laterality: Right Type of Debridement: Excisional debridement Anesthesia Used: 4% Lidocaine Solution Depth: Down to and including healthy tissue and in the subcutaneous layer Percentage of wound debrided: 100 Instrument Used: 3mm curette Tissue Removed: Subcutaneous tissue and slough Severity: Fat Layer Exposed Bleeding Controlled with: Pressure Patient tolerated procedure: Patient tolerated procedure well Assessment/Plan Assessment/Plan (1) Diabetic ulcer of right lower leg: CODE(S): E11.622 - Type 2 diabetes mellitus with other skin ulcer; L97.919 - Non-pressure chronic ulcer of unspecified part of right lower leg with unspecified severity (2) Diabetic ulcer of right ankle: CODE(S): E11.622 - Type 2 diabetes mellitus with other skin ulcer; L97.319 - Non-pressure chronic ulcer of right ankle with unspecified severity (3) Decubitus ulcer of right hip: CODE(S): L89.219 - Pressure ulcer of right hip, unspecified stage (4) Ulcer of right ankle: CODE(S): L97.319 - Non-pressure chronic ulcer of right ankle with unspecified severity (5) Osteomyelitis of right hip: CODE(S): M86.9 - Osteomyelitis, unspecified (6) Diabetes: CODE(S): E11.9 - Type 2 diabetes mellitus without complications PLAN: Wound care - Collagen hydrogel to the right lateral hip/upper thigh ulcer, will start January to the right lateral ankle ulcer. Double tubigrip and RICHARDSON wrap for compression. The concern with the right trochanteric/lateral hip/proximal thigh tunnel closing is that the undermining could fill up with fluid and the pressure may cause the ulcer to reopen again in the future. This may require further operative debridements. Patient and his grandson verbalized understanding to this. The would like to have this ulcer heal and see what happens. Wound culture of the right lateral culture was obtained today, 01/01/21. Depending on the results of the culture, it may necessitate the need to treat with antibiotics. Operative cultures from 09/14/20 showed E. coli in the bone and was negative or organisms. He was treated with Levaquin. He's also being evaluated by Infectious Diseases. Prealbumin from 09/15/20 was 18.1. Encourage nutritional supplementation with protein to help the healing process. HgbA1c from 09/14/20 was 5.8. For elective surgeries like a myocutaneous flap to close the ulcer, the HgbA1c needs to be less than 8. Followup one week.
[2021-01-08 14:23] VITALS: BP 149/56; PULSE 90; RESP 16; TEMP 36.2; BMI 26.3
--- NOTE | 2021-01-08 14:37 | PCM.WC.PN ---
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 History of Wound: Surgery 09/14/20 - Excision right trochanteric pressure sore, Stage IV, with partial ostectomy for osteomyelitis. Wound care - Right lateral ankle start Aquacel-Ag covered with gauze daily. Right lateral hip is healed. RICHARDSON wrap for compression. Wound culture of the right lateral culture was obtained on 01/01/21 which was positive for MRSA and Corynebacterium striatum. He was started on Doxycycline. Operative cultures - Bone was positive for E. coli and Soft Tissue was negative. He is currently on Levaquin and will continue them. Patient has appointment to see Infectious Diseases. Pathology - positive for acute and chronic osteomyelitis. Prealbumin from 09/15/20 was 18.1. HgbA1c from 09/14/[address] on 07/31/2020 did not show evidence of osteomyelitis. Ulcerating lesion in the lateral posterior aspect of the right buttock with increased markings in the subcutaneous fat. This abuts the underlying gluteus muscle. Right lateral ankle ulcer shows good granulation tissue. No exposed bone was noted. Today he denies any fever, chills, n/v. Progress of Wound: Right lateral hip ulcer is healed. Right lateral ankle ulcer excoriated surrounding the ulcer. Objective Data Objective Data Vital Signs: Vital Signs Temp Pulse Resp BP 97.2 F L 90 16 149/56 H 01/08/21 14:23 01/08/21 14:23 01/08/21 14:23 01/08/21 14:23 Oxygen Delivery Method Room Air Weight: 140 lb Body Mass Index (BMI) 26.3 Lab / Micro Data Micro: Microbiology 01/02/21 Unknown Wound Abcess - Ankle Gram Stain - Final 01/02/21 Unknown Wound Abcess - Ankle Wound Culture - Final Meth. resistant Staph. aureus Corynebacterium striatum 01/02/21 Unknown Wound Abcess - Ankle Anaerobic Culture - Final No anaerobic bacteria isolated. Charges/Coding Procedures Integumentary 111xxx-113xx: 23339 Berna subq tissue 20 sq cm/< Physical Exam Const alert and oriented x3 General Appearance: cooperative HEENT normocephalic Lymph Lymphatic: no lymphedema noted Resp normal respiratory effort Cardio regular rate GI non-tender Palpation: soft Skin Wound Narrative: Right lateral hip/thigh ulcer is healed today. Right lateral ankle is excoriated. Neuro CN's II-XII intact bilaterally Psych Appearance: grossly normal Debridement Note Debridement Note Wound debrided: right lateral ankle ulcer Laterality: Right Type of Debridement: Excisional debridement Anesthesia Used: 5% Lidocaine Gel Depth: Down to and including healthy tissue and in the subcutaneous layer Percentage of wound debrided: 100 Instrument Used: 3mm curette Tissue Removed: Subcutaneous tissue and slough Severity: Fat Layer Exposed Amount of bleeding with debridement: Mild Bleeding Controlled with: Pressure Patient tolerated procedure: Patient tolerated procedure well Post-Debridement Measurements and Additional Note: Post-Debridement Measurements/Treatment - Nurse 1 - General Ulcer Assessment Start: 12/18/20 14:17 Freq: Status: Active Protocol: NADIA Activity Type Activity Date Activity User E-Sign Co-Sign Detail Recorded Client Recorded Date Recorded By Document 12/18/20 14:17 [id number] 12/18/20 14:18 Document 01/01/21 13:43 [id number] 01/01/21 13:46 Document 01/08/21 14:23 [facility] [id number] 01/08/21 14:28 [facility] 12/18/20 01/01/21 01/08/21 14:17 13:43 14:23 - Today's Visit Information Type of service Follow-up Visit Follow-up Visit Follow-up Visit (Physician/GRAPHIC ART SALES REPRESENTATIVE (Physician/GRAPHIC ART SALES REPRESENTATIVE (Physician/GRAPHIC ART SALES REPRESENTATIVE ) ) ) Arrival Mode Wheelchair Wheelchair Wheelchair Transfer Assistance Other Transfer Assist (Other) stand by Accompanied by friend Patient Identification Verified (Name & Yes Yes Yes ) Patient Requires Transmission-Based No Precautions Height and Weight Body Mass Index (BMI) 26.3 26.3 26.3 BMI Classification Overweight Overweight Overweight Vital Signs Temperature (97.8 F-99.1 F) 96.7 F L 98.4 F 97.2 F L Temperature Source Temporal Temporal Temporal Pulse Rate (60-100) 74 64 90 Pulse Location Monitor Monitor Monitor Respiratory Rate (12-18) 16 Respiratory rate source Observation Oxygen Delivery Method Room Air Blood Pressure (90/60-120/80) 138/78 H 138/72 H 149/56 H Blood Pressure Mean (mm Hg) 98 94 87 Source Monitor Monitor Monitor Position Sitting Sitting Supine Blood Pressure Location Right Arm Left Arm Left Arm History Since Last Visit- (Skip if this is Patient's initial visit) Have you changed medications since your No No No last visit? Any new allergies or adverse reactions No No No Had a fall/change in ADL's that may No No No increase risk of falls Signs or symptoms of abuse and/or No No neglect since last visit Have you been in the hospital since your No No No last visit? Has dressing in place as prescribed Yes Yes Yes Has compression in place as prescribed N/A Yes Yes Has offloadiing in place as prescribed N/A N/A N/A Experienced any changes in pain level or No No management Left Footwear Regular Shoe Regular Shoe Regular Shoe Right Footwear Regular Shoe Regular Shoe Regular Shoe Pain Scale: 0-10 Numeric Is Patient Pain Free? Yes Yes WC - Nurse 1 - General Ulcer Measurement Start: 12/18/20 14:17 Freq: Status: Active Protocol: Activity Type Activity Date Activity User E-Sign Co-Sign Detail Recorded Client Recorded Date Recorded By Document 12/18/20 14:17 [id number] 12/18/20 14:18 KR Document 01/01/21 13:43 KR [id number] 01/01/21 13:46 KR Document 01/08/21 14:23 [facility] [id number] 01/08/21 14:28 [facility] 12/18/20 01/01/21 01/08/21 14:17 13:43 14:23 Wound Center Nurse 1 #6 right Hip -Combined with other wound No -Current Size (cm) - Length 0.3 0.1 -Current Size (cm) - Width 0.3 0.1 -Current Size (cm) - Depth 0.1 0.1 -Total Square Cm 0.09 0.01 -Epithelialization Large 67-100% -Exudate Amt Small -Exudate Type Serosanguineous -Wound Margin Distinct, Outline Attached -Granulation Amt Small (1-33%) -Granulation Quality Red -Necrosis Amt Small (1-33%) -Necrotic Tissue Type Adherent Slough -Texture (Cammie-wound Skin Appearance) Assessed, Scarring -Moisture (Cammie-wound Skin Appearance) No Abnormality, Assessed -Color (Cammie-wound Skin Appearance) No Abnormality, Assessed -Temperature (Cammie-wound Skin No Abnormality Appearance) (Pt Warm) -Tenderness on Palpation (Cammie-wound No Skin Appearance) -Ulcer Cleansing Rinsed/ Irrigated with Saline -Foul Odor after Cleansing No -Anesthetic Used 5% Lidocaine Gel #5 right ankle -Combined with other wound No -Current Size (cm) - Length 0.4 0.8 1.4 -Current Size (cm) - Width 0.3 0.7 1.3 -Current Size (cm) - Depth 0.2 0.3 0.3 -Total Square Cm 0.12 0.56 1.82 -Photo Taken No -Epithelialization None Present -Tunneling No -Undermining/Tunneling No -Circular Undermining No -Exudate Amt Small Small Medium -Exudate Type Serosanguineous Serosanguineous Serosanguineous -Wound Margin Distinct, Distinct, Distinct, Outline Outline Outline Attached Attached Attached -Granulation Amt Small (1-33%) Medium (34-66%) Medium (34-66%) -Granulation Quality [place] Red Red -Slough/Fibrin Yes -Necrosis Amt Small (1-33%) Medium (34-66%) Medium (34-66%) -Necrotic Tissue Type Adherent Slough Adherent Slough Adherent Slough -Texture (Cammie-wound Skin Appearance) Assessed, Assessed, Assessed, Scarring Scarring Scarring -Moisture (Cammie-wound Skin Appearance) No Abnormality, No Abnormality, Assessed Assessed Assessed -Color (Cammie-wound Skin Appearance) No Abnormality, No Abnormality, Assessed Assessed Assessed -Temperature (Cammie-wound Skin No Abnormality No Abnormality No Abnormality Appearance) (Pt Warm) (Pt Warm) (Pt Warm) -Tenderness on Palpation (Cammie-wound No No Yes Skin Appearance) -Ulcer Cleansing Rinsed/ Rinsed/ Rinsed/ Irrigated with Irrigated with Irrigated with Saline Saline Saline -Foul Odor after Cleansing No No No -Anesthetic Used 5% Lidocaine 5% Lidocaine 5% Lidocaine Gel Gel Gel Lower Limb Edema Present Yes Right Calf (cm) 29.9 Right Ankle (cm) 23.3 WC - Nurse 2 - General Ulcer CM Notes Start: 12/18/20 14:17 Freq: Status: Active Protocol: Activity Type Activity Date Activity User E-Sign Co-Sign Detail Recorded Client Recorded Date Recorded By Document 12/18/20 14:22 VIELKA [id number] 12/18/20 14:31 Document 01/01/21 13:59 [id number] 01/01/21 14:03 12/18/20 01/01/21 14:22 13:59 Wound Center Nurse 2 #6 right Hip -Time 14:25 13:59 -Correct Patient Yes Yes -Correct Side, Site, Position Yes Yes -Correct Procedure Yes Yes -Procedure Performed Yes Yes -Type of Procedure Debridement Debridement -Clinical Debridement Subcutaneous Subcutaneous -Tissue Removed Subcutaneous Subcutaneous -Post Debridement (cm) - Length 0.4 0.5 -Post Debridement (cm) - Width 1.3 0.5 -Post Debridement (cm) - Depth 0.6 0.1 -Total Square (Post) (cm) 0.52 0.25 -Area of Debridement (cm) - Length 0.4 0.5 -Area of Debridement (cm) - Width 1.3 0.5 -Total Square (Area) (cm) 0.52 0.25 -Tunneling No -Undermining/Tunneling No No -Circular Undermining No No -Wound/Ulcer Outcome Not Healed Not Healed -Ulcer Cleansing Rinsed/ Rinsed/ Irrigated with Irrigated with Saline Saline -Foul Odor after Cleansing No No -Bioengineered Tissue No No -Bleeding Controlled with Pressure Pressure -Offloading No No -Treatment Response Procedure Procedure Tolerated Well Tolerated Well -Debridement - Subq, 1st 20sq cm Yes No #5 right ankle -Time 14:28 14:00 -Correct Patient Yes Yes -Correct Side, Site, Position Yes Yes -Correct Procedure Yes Yes -Procedure Performed Yes Yes -Type of Procedure Debridement Debridement -Clinical Debridement Subcutaneous Subcutaneous -Tissue Removed Subcutaneous Subcutaneous -Post Debridement (cm) - Length 0.9 1.5 -Post Debridement (cm) - Width 0.8 1.5 -Post Debridement (cm) - Depth 0.2 0.3 -Total Square (Post) (cm) 0.72 2.25 -Area of Debridement (cm) - Length 0.9 1.5 -Area of Debridement (cm) - Width 0.8 1.5 -Total Square (Area) (cm) 0.72 2.25 -Tunneling No No -Undermining/Tunneling No No -Circular Undermining No No -Wound/Ulcer Outcome Not Healed Not Healed -Ulcer Cleansing Rinsed/ Rinsed/ Irrigated with Irrigated with Saline Saline -Foul Odor after Cleansing No No -Bioengineered Tissue No No -Bleeding Controlled with Pressure Pressure -Offloading No No -Treatment Response Procedure Procedure Tolerated Well Tolerated Well -Debridement - Subq, 1st 20sq cm No Yes Pain Scale: 0-10 Numeric Is Patient Pain Free? Yes Yes - Nurse 3 - General Ulcer D/C NN Start: 12/18/20 14:17 Freq: Status: Active Protocol: Activity Type Activity Date Activity User E-Sign Co-Sign Detail Recorded Client Recorded Date Recorded By Document 12/18/20 14:38 [id number] 12/18/20 14:39 KR Document 01/01/21 14:12 KR [id number] 01/01/21 14:13 KR 12/18/20 01/01/21 14:38 14:12 Wound Care Nurse 3 #6 right Hip -Primary Dressing Applied C Hydrogel ($) C Hydrogel ($) -Primary Dressing Covered/Secured with Dry Gauze, Dry Gauze, Secured with Secured with Tape Tape #5 right ankle -Primary Dressing Applied C Hydrogel ($) Promogran -Primary Dressing Covered/Secured with Dry Gauze, Dry Gauze, Secured with Secured with Tape Tape -Promogran 1 Right -Tubular Bandage Double Layer -Size of Tubigrip Used Size E -Size E ($) 2 Pain Scale: 0-10 Numeric Is Patient Pain Free? Yes Yes - Visit Discharge Discharge Condition Stable Stable Ambulatory Status Wheelchair Wheelchair Transportation Private Auto Private Auto Accompanied by grandson grandson Assessment/Plan Assessment/Plan (1) Ulcer of right ankle: CODE(S): L97.319 - Non-pressure chronic ulcer of right ankle with unspecified severity (2) Decubitus ulcer of right hip: CODE(S): L89.219 - Pressure ulcer of right hip, unspecified stage (3) Smoker: CODE(S): F17.200 - Nicotine dependence, unspecified, uncomplicated (4) Osteomyelitis of right hip: CODE(S): M86.9 - Osteomyelitis, unspecified (5) Diabetes: CODE(S): E11.9 - Type 2 diabetes mellitus without complications PLAN: Wound care - Right lateral hip is healed. Right lateral ankle is excoriated. Start Aquacel-Ag (silver alginate) daily covered with gauze. Double tubigrip and RICHARDSON wrap for compression. The concern with the right trochanteric/lateral hip/proximal thigh tunnel closing is that the undermining could fill up with fluid and the pressure may cause the ulcer to reopen again in the future. This may require further operative debridement. Patient and his grandson verbalized understanding to this. Wound culture of the right lateral culture was obtained on 01/01/21 which was positive for MRSA and Corynebacterium striatum. He was started on Doxycycline. Operative cultures from 09/14/20 showed E. coli in the bone and was negative or organisms. He was treated with Levaquin. He's also being evaluated by Infectious Diseases. Prealbumin from 09/15/20 was 18.1. Encourage nutritional supplementation with protein to help the healing process. HgbA1c from 09/14/20 was 5.8. For elective surgeries like a myocutaneous flap to close the ulcer, the HgbA1c needs to be less than 8. Followup two weeks.
--- NOTE | 2021-02-26 10:14 | ART_ITS ---
Reason For Study: PVD Procedure A bilateral lower extremity continuous wave Doppler with analog waveform analysis,segmental pressures,and ankle brachial indexes without exercise. Left Segmental Pressures Left brachial= 147mmHg. Left posterior tibial artery = 156mmHg. Left dorsalis pedis artery = 154mmHg. Left digit = 136 mmHg. The left dorsalis pedis waveforms are triphasic. The left posterior tibial artery waveforms are triphasic. Right Segmental Pressures Right brachial= 144mmHg. Right posterior tibial artery = 156mmHg. Right dorsalis pedis artery = 149mmHg. Right digit = 95 mmHg. The right dorsalis pedis waveforms are triphasic. The right posterior tibial artery waveforms are triphasic. Indices The right ankle brachial index by the dorsalis pedis is 1.01. The right ankle brachial index by the posterior tibial artery is 1.06. The right digital-brachial index is 0.65. The left ankle brachial index by the dorsalis pedis is 1.05. The left ankle brachial index by the posterior tibial artery is 1.06. The left post exercise ankle brachial index is 0.93. VL/Lower Ext Art Exam w/o Exercis Interpretation Summary Triphasic Doppler waveforms are noted at ankle level bilaterally. Pulse-volume recordings appear satisfactory at all levels bilaterally, including low thigh, calf, ankle, and d igital levels. Resting ankle-brachial indices are normal bilaterally. The right digital-brachi al index is mildly diminished. The left digital-brachial index is normal. Arterial flow appears normal at ankle level bilaterally, and at digital level o n the left. There is evidence mild arterial occlusive disease at digital level on the right. Ordering Physician: Ginette Alvarez Referring Physician: Abelardo Adamson Performed By: Tomasa De Oliveira RVT
--- NOTE | 2021-02-26 10:14 | VDLE_ITS ---
Reason For Study: Ulcer RIGHT LEFT CFV is compressible, spontaneous, phasic, CFV is compressible, spontaneous, phasic, competent and demonstrates normal competent, and demonstrates normal augmentation. augmentation. FV is compressible, spontaneous, phasic, FV is compressible, spontaneous, phasic, competent and demonstrates normal competent and demonstrates normal augmentation. augmentation. POP V is compressible, spontaneous, phasic, POP V is compressible, spontaneous, phasic, competent and demonstrates normal competent and demonstrates normal augmentation. augmentation. T/P Trunk is compressible. T/P Trunk is compressible. PTV is compressible. PTV is compressible. RT PerV is compressible. LT PerV is compressible. SFJ is competent and measures 0.50 x 0.49 cm. SFJ is competent and measures 0.40 x 0.45 cm. GSV proximal thigh measures 0.39 x 0.36 cm. GSV proximal thigh measures 0.31 x 0.31 cm. GSV at knee measures 0.36 x 0.34 cm. GSV at knee measures 0.31 x 0.35 cm. GSV is competent throughout. GSV is competent throughout. SSV at junction is competent and measures SSV at junction is competent and measures 0.25 x 0.26 cm. 0.21 x 0.22 cm. Procedure This is a venous duplex using B-mode, color flow and spectral Doppler. Exam performed in department. Patient was scanned in reverse Trendelenburg position during reflux assessment. A preliminary report was called and/or faxed to . VL/Venous Duplex US - Aneudy Extrem Interpretation Summary Deep veins of the lower extremities are bilaterally patent and compressible seg mentally. There is no evidence of deep vein thrombosis on either side. Valvular competence appears in tact within the proximal deep venous systems bilaterally. The great saphenous veins appear bila terally patent and compressible segmentally. Sapheno-femoral junctions are bilaterally competent . Valvular competence appears to be intact segmentally within the great saphenous veins bilaterally. Small saphenous veins are patent and competent bilaterally. Ordering Physician: Ginette Alvarez Referring Physician: Abelardo Adamson Performed By: Tomasa De Oliveira RVT
== END 2021-01-16 23:59 ==
LOC: WC 14:15
PROVIDERS: PCP Student in an Organized Health Care Education/Training Program; Referring Provider Family Medicine; Visit Provider Nurse Practitioner Family
DX: E11.622 Type 2 diabetes mellitus with other skin ulcer (principal); L89.214 Pressure ulcer of right hip, stage 4; L97.312 Non-pressure chronic ulcer of right ankle with fat layer exposed; E11.69 Type 2 diabetes mellitus with other specified complication; M86.68 Other chronic osteomyelitis, other site; Z86.14 Personal history of Methicillin resistant Staphylococcus aureus infection; F17.200 Nicotine dependence, unspecified, uncomplicated
CPT/HCPCS: 11042; 87070; 87075; 87077; 87186; 87205

== ENCOUNTER 2021-02-05 13:45 | Outpatient (RCR) | payer MEDICARE, SELFPAY ==
[2021-01-17 00:26] VITALS: BP 149/56; PULSE 90; RESP 16; TEMP 36.2; BMI 26.3
[2021-01-22 13:59] VITALS: BP 142/82; PULSE 63; TEMP 35.7; BMI 26.3
--- NOTE | 2021-01-22 14:39 | PN.PCM_ITS ---
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 History of Wound: Surgery 09/14/20 - Excision right trochanteric pressure sore, Stage IV, with partial ostectomy for osteomyelitis. Wound care - Right lateral ankle Aquacel-Ag covered with gauze daily. Right lateral hip remains healed. Tubigrip topped with FITO wrap for compression. Wound culture of the right lateral culture was obtained on 01/01/21 which was positive for MRSA and Corynebacterium striatum. He was started on Doxycycline. Operative cultures - Bone was positive for E. coli and Soft Tissue was negative. He is currently on Levaquin and will continue them. Patient has appointment to see Infectious Diseases. Pathology - positive for acute and chronic osteomyelitis. Prealbumin from 09/15/20 was 18.1. HgbA1c from 09/14/[address] on 07/31/2020 did not show evidence of osteomyelitis. Ulcerating lesion in the lateral posterior aspect of the right buttock with increased markings in the subcutaneous fat. This abuts the underlying gluteus muscle. Right lateral ankle ulcer shows good granulation tissue. No exposed bone was noted. Today he denies any fever, chills, n/v. Progress of Wound: Stable. Not much improvement. Objective Data Objective Data Vital Signs: Vital Signs Temp Pulse Resp BP 96.2 F L 63 16 142/82 H 01/22/21 13:59 01/22/21 13:59 01/17/21 00:26 01/22/21 13:59 Weight: 140 lb Body Mass Index (BMI) 26.3 Charges/Coding Procedures Integumentary 111xxx-113xx: 93251 Berna subq tissue 20 sq cm/< Physical Exam Const alert and oriented x3 General Appearance: cooperative HEENT normocephalic Eyes PERRL Lymph Lymphatic: no lymphedema noted Resp normal respiratory effort Cardio regular rate GI non-tender Palpation: soft Extremity normal capillary refill Skin Wound Narrative: Right lateral ankle ulcer is stable. It does not show any improvement this week. His edema is improved using the tubigrip and FITO wrap for compression. Neuro CN's II-XII intact bilaterally Psych Appearance: grossly normal Debridement Note Debridement Note Wound debrided: Lateral ankle ulcer Laterality: Right Type of Debridement: Excisional debridement Anesthesia Used: 5% Lidocaine Gel Depth: Down to and including healthy tissue and in the subcutaneous layer Percentage of wound debrided: 100 Instrument Used: 3mm curette Tissue Removed: Subcutaneous tissue and slough Severity: Fat Layer Exposed Bleeding Controlled with: Compression and gauze Patient tolerated procedure: Patient tolerated procedure well Post-Debridement Measurements and Additional Note: Post-Debridement Measurements/Treatment DELVIS - Nurse 1 - General Ulcer Assessment Start: 01/22/21 13:59 Freq: Status: Active Protocol: NADIA Activity Type Activity Date Activity User E-Sign Co-Sign Detail Recorded Client Recorded Date Recorded By Document 01/22/21 13:59 TRAMAINE [id number] 01/22/21 14:01 TRAMAINE 01/22/21 13:59 DELVIS - Today's Visit Information Type of service Follow-up Visit (Physician/DRIVER RECRUITER ) Arrival Mode Wheelchair Accompanied by caregiver Patient Identification Verified (Name & No ) Patient Requires Transmission-Based No Precautions Safety Precautions NA Height and Weight Body Mass Index (BMI) 26.3 BMI Classification Overweight Vital Signs Temperature (97.8 F-99.1 F) 96.2 F L Temperature Source Temporal Pulse Rate (60-100) 63 Pulse Location Monitor Blood Pressure (90/60-120/80) 142/82 H Blood Pressure Mean (mm Hg) 102 Source Monitor History Since Last Visit- (Skip if this is Patient's initial visit) Have you changed medications since your No last visit? Any new allergies or adverse reactions No Had a fall/change in ADL's that may No increase risk of falls Signs or symptoms of abuse and/or No neglect since last visit Have you been in the hospital since your No last visit? Has dressing in place as prescribed Yes Has compression in place as prescribed Yes Has offloadiing in place as prescribed N/A Experienced any changes in pain level or No management Left Footwear Regular Shoe Right Footwear Regular Shoe DELVIS - Nurse 1 - General Ulcer Measurement Start: 01/22/21 13:59 Freq: Status: Active Protocol: Activity Type Activity Date Activity User E-Sign Co-Sign Detail Recorded Client Recorded Date Recorded By Document 01/22/21 13:59 TRAMAINE [id number] 01/22/21 14:01 TRAMAINE 01/22/21 13:59 Wound Center Nurse 1 #5 right ankle -Combined with other wound No -Current Size (cm) - Length 1 -Current Size (cm) - Width 1 -Current Size (cm) - Depth 0.3 -Total Square Cm 1 -Photo Taken Yes -Epithelialization Small 1-33% -Tunneling No -Undermining/Tunneling No -Circular Undermining No -Change in Wound Grade/Stage No -Exudate Amt Small -Exudate Type Serosanguineous -Wound Margin Distinct, Outline Attached -Granulation Amt None Present (0 %) -Granulation Quality N/A -Slough/Fibrin Yes -Necrosis Amt Medium (34-66%) -Necrotic Tissue Type Adherent Slough -Structure Exposed N/A -Texture (Cammie-wound Skin Appearance) Assessed, Scarring -Moisture (Cammie-wound Skin Appearance) No Abnormality, Assessed -Color (Cammie-wound Skin Appearance) No Abnormality, Assessed -Temperature (Cammie-wound Skin No Abnormality Appearance) (Pt Warm) -Ulcer Cleansing Rinsed/ Irrigated with Saline -Foul Odor after Cleansing No -Anesthetic Used 5% Lidocaine Gel WC - Nurse 2 - General Ulcer CM Notes Start: 01/22/21 13:59 Freq: Status: Active Protocol: Activity Type Activity Date Activity User E-Sign Co-Sign Detail Recorded Client Recorded Date Recorded By Document 01/22/21 14:04 [id number] 01/22/21 14:06 VIELKA 01/22/21 14:04 Wound Center Nurse 2 -Time 14:05 -Correct Patient Yes -Correct Side, Site, Position Yes -Correct Procedure Yes -Procedure Performed Yes -Type of Procedure Debridement -Clinical Debridement Subcutaneous -Tissue Removed Subcutaneous -Post Debridement (cm) - Length 1.3 -Post Debridement (cm) - Width 1.3 -Post Debridement (cm) - Depth 0.3 -Total Square (Post) (cm) 1.69 -Area of Debridement (cm) - Length 1.3 -Area of Debridement (cm) - Width 1.3 -Total Square (Area) (cm) 1.69 -Tunneling No -Undermining/Tunneling No -Circular Undermining No -Wound/Ulcer Outcome Not Healed -Ulcer Cleansing Rinsed/ Irrigated with Saline -Foul Odor after Cleansing No -Bioengineered Tissue No -Bleeding Controlled with Pressure -Offloading No -Treatment Response Procedure Tolerated Well -Debridement - Subq, 1st 20sq cm Yes Pain Scale: 0-10 Numeric Is Patient Pain Free? Yes - Nurse 3 - General Ulcer D/C NN Start: 01/22/21 13:59 Freq: Status: Active Protocol: Activity Type Activity Date Activity User E-Sign Co-Sign Detail Recorded Client Recorded Date Recorded By Document 01/22/21 14:27 VIELKA [id number] 01/22/21 14:28 VIELKA 01/22/21 14:27 Wound Care Nurse 3 #5 right ankle -Ulcer Cleansing Rinsed/ Irrigated with Saline -Foul Odor after Cleansing No -Primary Dressing Applied Aquacel AG 4x4 -Primary Dressing Covered/Secured with Dry Gauze & Roll Gauze, Secured with Tape -Aquacel AG 4x4 1 Right -Compression Wrap Fito Wrap -Tubular Bandage Double Layer -Size of Tubigrip Used Size D -Size D ($) 0 Pain Scale: 0-10 Numeric Is Patient Pain Free? Yes WC - Visit Discharge Discharge Condition Stable Ambulatory Status Wheelchair Transportation Private Auto Medication Reconcilliation completed & Yes provided to patient/care provider Clinical Summary of Care Provided Yes Assessment/Plan Assessment/Plan (1) Ulcer of right ankle: CODE(S): L97.319 - Non-pressure chronic ulcer of right ankle with unspecified severity (2) Diabetes: CODE(S): E11.9 - Type 2 diabetes mellitus without complications (3) Smoker: CODE(S): F17.200 - Nicotine dependence, unspecified, uncomplicated (4) Edema of right lower extremity: CODE(S): R60.0 - Localized edema PLAN: Wound care - Right lateral hip remains healed. Right lateral ankle Aquacel-Ag (silver alginate) daily covered with gauze. Double tubigrip and FITO wrap for compression. The compression has helped decreased his edema. His skin is very dry, encouraged him to use lotion at least once per day and to increase his water intake. Wound culture of the right lateral culture was obtained on 01/01/21 which was positive for MRSA and Corynebacterium striatum. Continue Doxycycline. Will obtain an x-ray of his right ankle since his ulcer is showing no improvement. Operative cultures from 09/14/20 showed E. coli in the bone and was negative or organisms. He was treated with Levaquin. He's also being evaluated by Infectious Diseases. Prealbumin from 09/15/20 was 18.1. Encourage nutritional supplementation with protein to help the healing process. HgbA1c from 09/14/20 was 5.8. For elective surgeries like a myocutaneous flap to close the ulcer, the HgbA1c needs to be less than 8. Followup two weeks.
--- NOTE | 2021-01-22 14:41 | RAD_ITS ---
STUDY: XR Ankle Min 3 Views REASON FOR EXAM: Male, 75 years old. ANKLE PAIN TECHNIQUE: XR Ankle Min 3 Views COMPARISON: None. FINDINGS: Normal visualized distal tibia and fibula. Normal medial and lateral malleoli. Normal tibiotalar articulation and ankle mortise. There is an enthesophyte involving the posterior superior calcaneus at the site of insertion of the Achilles tendon. The visualized subtalar, talonavicular, calcaneocuboid and tarsal articulations are normal. There is a plantar calcaneal spur. There is soft tissue swelling around the ankle. RAD/Ankle min 3 Views IMPRESSION: There is soft tissue swelling. Electronically Signed: Federico Young MD at 17:30 EST , Service support ,
[2021-02-05 13:38] VITALS: BP 156/52; PULSE 77; RESP 18; TEMP 36.2; BMI 26.3
--- NOTE | 2021-02-05 14:20 | PN.PCM_ITS ---
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 History of Wound: Surgery 09/14/20 - Excision right trochanteric pressure sore, Stage IV, with partial ostectomy for osteomyelitis. Wound care - Right lateral ankle Aquacel-Ag covered with gauze daily. Right lateral hip remains healed. Tubigrip topped with FITO wrap for compression. Wound culture of the right lateral culture was obtained on 01/01/21 which was positive for MRSA and Corynebacterium striatum. He was started on Doxycycline. Operative cultures - Bone was positive for E. coli and Soft Tissue was negative. He is currently on Levaquin and will continue them. Patient has appointment to see Infectious Diseases. Pathology - positive for acute and chronic osteomyelitis. Prealbumin from 09/15/20 was 18.1. HgbA1c from 09/14/[address] on 07/31/2020 did not show evidence of osteomyelitis. Ulcerating lesion in the lateral posterior aspect of the right buttock with increased markings in the subcutaneous fat. This abuts the underlying gluteus muscle. Right lateral ankle ulcer shows good granulation tissue. No exposed bone was noted. Today he denies any fever, chills, n/v. Progress of Wound: Stable. Not much improvement. Objective Data Objective Data Vital Signs: Vital Signs Temp Pulse Resp BP 97.1 F L 77 18 156/52 H 02/05/21 13:38 02/05/21 13:38 02/05/21 13:38 02/05/21 13:38 Weight: 140 lb Body Mass Index (BMI) 26.3 Charges/Coding Procedures Integumentary 111xxx-113xx: 56112 Berna subq tissue 20 sq cm/< Physical Exam Const alert and oriented x3 HEENT normocephalic Head and Scalp: atraumatic Resp normal respiratory effort Cardio regular rate GI non-tender Extremity Extremity Narrative: +1 lower extremity edema Skin Wound Narrative: Right lateral ankle ulcer is stable. No improvement from last visit. There is thickened scar tissue surrounding the ulcer. Neuro CN's II-XII intact bilaterally Psych Appearance: grossly normal Debridement Note Debridement Note Wound debrided: lateral ankel ulcer Laterality: Right Type of Debridement: Excisional debridement Anesthesia Used: 5% Lidocaine Gel Depth: Down to and including healthy tissue and in the subcutaneous layer Percentage of wound debrided: 100 Instrument Used: 3mm curette Tissue Removed: Non viable tissue and slough, scar tissue surrounding the ulcer Severity: Fat Layer Exposed Amount of bleeding with debridement: Mild Bleeding Controlled with: Pressure and Compression and gauze Patient tolerated procedure: Patient tolerated procedure well Post-Debridement Measurements and Additional Note: Post-Debridement Measurements/Treatment WC - Nurse 1 - General Ulcer Assessment Start: 01/22/21 13:59 Freq: Status: Active Protocol: NADIA Activity Type Activity Date Activity User E-Sign Co-Sign Detail Recorded Client Recorded Date Recorded By Document 01/22/21 13:59 NC [id number] 01/22/21 14:01 AK Document 02/05/21 13:38 [facility] [id number] 02/05/21 13:43 BM 01/22/21 02/05/21 13:59 13:38 WC - Today's Visit Information Type of service Follow-up Visit Follow-up Visit (Physician/LAUNDRY ATTENDANT (Physician/LAUNDRY ATTENDANT ) ) Arrival Mode Wheelchair Wheelchair Transfer Assistance None Accompanied by caregiver Patient Identification Verified (Name & No Yes ) Patient Requires Transmission-Based No No Precautions Safety Precautions NA Height and Weight Body Mass Index (BMI) 26.3 26.3 BMI Classification Overweight Overweight Vital Signs Temperature (97.8 F-99.1 F) 96.2 F L 97.1 F L Temperature Source Temporal Temporal Pulse Rate (60-100) 63 77 Pulse Location Monitor Monitor Respiratory Rate (12-18) 18 Respiratory rate source Observation Blood Pressure (90/60-120/80) 142/82 H 156/52 H Blood Pressure Mean (mm Hg) 102 86 Source Monitor Monitor History Since Last Visit- (Skip if this is Patient's initial visit) Have you changed medications since your No No last visit? Any new allergies or adverse reactions No No Had a fall/change in ADL's that may No No increase risk of falls Signs or symptoms of abuse and/or No No neglect since last visit Have you been in the hospital since your No No last visit? Has dressing in place as prescribed Yes Yes Has compression in place as prescribed Yes N/A Has offloadiing in place as prescribed N/A Yes Experienced any changes in pain level or No No management Left Footwear Regular Shoe Right Footwear Regular Shoe Pain Scale: 0-10 Numeric Is Patient Pain Free? Yes WC - Nurse 1 - General Ulcer Measurement Start: 01/22/21 13:59 Freq: Status: Active Protocol: Activity Type Activity Date Activity User E-Sign Co-Sign Detail Recorded Client Recorded Date Recorded By Document 01/22/21 13:59 NC [id number] 01/22/21 14:01 [place] Document 02/05/21 13:38 [facility] [id number] 02/05/21 13:43 [facility] 01/22/21 02/05/21 13:59 13:38 Wound Center Nurse 1 #5 right ankle -Combined with other wound No -Current Size (cm) - Length 1 1 -Current Size (cm) - Width 1 0.8 -Current Size (cm) - Depth 0.3 0.3 -Total Square Cm 1 0.8 -Photo Taken Yes No -Epithelialization Small 1-33% -Tunneling No -Undermining/Tunneling No -Circular Undermining No -Change in Wound Grade/Stage No -Exudate Amt Small Medium -Exudate Type Serosanguineous -Wound Margin Distinct, Distinct, Outline Outline Attached Attached -Granulation Amt None Present (0 Medium (34-66%) %) -Granulation Quality N/A [place] -Slough/Fibrin Yes -Necrosis Amt Medium (34-66%) Medium (34-66%) -Necrotic Tissue Type Adherent Slough Adherent Slough -Structure Exposed N/A N/A -Texture (Cammie-wound Skin Appearance) Assessed, Scarring Scarring -Moisture (Cammie-wound Skin Appearance) No Abnormality, No Abnormality Assessed -Color (Cammie-wound Skin Appearance) No Abnormality, Hemosiderin Assessed Staining -Temperature (Cammie-wound Skin No Abnormality No Abnormality Appearance) (Pt Warm) (Pt Warm) -Tenderness on Palpation (Cammie-wound No Skin Appearance) -Ulcer Cleansing Rinsed/ Rinsed/ Irrigated with Irrigated with Saline Saline -Foul Odor after Cleansing No No -Anesthetic Used 5% Lidocaine 4% Lidocaine Gel Solution Right Calf (cm) 28.7 Right Ankle (cm) 21.6 WC - Nurse 2 - General Ulcer CM Notes Start: 01/22/21 13:59 Freq: Status: Active Protocol: Activity Type Activity Date Activity User E-Sign Co-Sign Detail Recorded Client Recorded Date Recorded By Document 01/22/21 14:04 [id number] 01/22/21 14:06 Document 02/05/21 13:54 [id number] 02/05/21 13:58 01/22/21 02/05/21 14:04 13:54 Wound Center Nurse 2 #5 right ankle -Time 14:05 13:54 -Correct Patient Yes Yes -Correct Side, Site, Position Yes Yes -Correct Procedure Yes Yes -Procedure Performed Yes Yes -Type of Procedure Debridement Debridement -Clinical Debridement Subcutaneous Subcutaneous -Tissue Removed Subcutaneous Subcutaneous -Post Debridement (cm) - Length 1.3 1.3 -Post Debridement (cm) - Width 1.3 1.3 -Post Debridement (cm) - Depth 0.3 0.3 -Total Square (Post) (cm) 1.69 1.69 -Area of Debridement (cm) - Length 1.3 1.3 -Area of Debridement (cm) - Width 1.3 1.3 -Total Square (Area) (cm) 1.69 1.69 -Tunneling No No -Undermining/Tunneling No No -Circular Undermining No No -Wound/Ulcer Outcome Not Healed Not Healed -Ulcer Cleansing Rinsed/ Rinsed/ Irrigated with Irrigated with Saline Saline -Foul Odor after Cleansing No No -Bioengineered Tissue No No -Bleeding Controlled with Pressure Pressure -Offloading No No -Treatment Response Procedure Procedure Tolerated Well Tolerated Well -Debridement - Subq, 1st 20sq cm Yes Yes Pain Scale: 0-10 Numeric Is Patient Pain Free? Yes Yes WC - Nurse 3 - General Ulcer D/C NN Start: 01/22/21 13:59 Freq: Status: Active Protocol: Activity Type Activity Date Activity User E-Sign Co-Sign Detail Recorded Client Recorded Date Recorded By Document 01/22/21 14:27 [id number] 01/22/21 14:28 Document 02/05/21 14:05 [id number] 02/05/21 14:06 01/22/21 02/05/21 14:27 14:05 Wound Care Nurse 3 #5 right ankle -Ulcer Cleansing Rinsed/ Rinsed/ Irrigated with Irrigated with Saline Saline -Foul Odor after Cleansing No No -Primary Dressing Applied Aquacel AG 4x4 Aquacel AG 2x2 -Primary Dressing Covered/Secured with Dry Gauze & Dry Gauze & Roll Gauze, Roll Gauze, Secured with Secured with Tape Tape -Aquacel AG 4x4 1 -Aquacel AG 2x2 1 Right -Compression Wrap Fito Wrap -Tubular Bandage Double Layer -Size of Tubigrip Used Size D -Size D ($) 0 Pain Scale: 0-10 Numeric Is Patient Pain Free? Yes Yes WC - Visit Discharge Discharge Condition Stable Stable Ambulatory Status Wheelchair Wheelchair Transportation Private Auto Private Auto Accompanied by family Medication Reconcilliation completed & Yes Yes provided to patient/care provider Clinical Summary of Care Provided Yes Yes Assessment/Plan Assessment/Plan (1) Ulcer of right ankle: CODE(S): L97.319 - Non-pressure chronic ulcer of right ankle with unspecified severity (2) Edema of right lower extremity: CODE(S): R60.0 - Localized edema (3) Smoker: CODE(S): F17.200 - Nicotine dependence, unspecified, uncomplicated (4) Diabetes: CODE(S): E11.9 - Type 2 diabetes mellitus without complications PLAN: Wound care - Right lateral hip remains healed. Right lateral ankle Aquacel-Ag (silver alginate) daily covered with gauze. Double tubigrip for compression. Stop the FITO wrap because he is having difficulties with it not staying on. The compression has helped decreased his edema. His skin is very dry, encouraged him to use lotion at least once per day and to increase his water intake. Wound culture of the right lateral culture was obtained on 01/01/21 which was positive for MRSA and Corynebacterium striatum. Completed Doxycycline. Right ankle x-ray from 01/22/21 showed Soft tissue swelling around ankle. Operative cultures from 09/14/20 showed E. coli in the bone and was negative or organisms. He was treated with Levaquin. Prealbumin from 09/15/20 was 18.1. Encourage nutritional supplementation with protein to help the healing process. HgbA1c from 09/14/20 was 5.8. For elective surgeries like a myocutaneous flap to close the ulcer, the HgbA1c needs to be less than 8. Since there has been a delay in the healing of his right lateral ankle ulcer, will order arterial and vascular studies of his right lower extremity. Unable to find any recent studies in the past year. Followup two weeks.
== END 2021-02-16 23:59 ==
LOC: WC 13:45
PROVIDERS: PCP Student in an Organized Health Care Education/Training Program; Referring Provider Family Medicine; Visit Provider Nurse Practitioner Family
DX: E11.622 Type 2 diabetes mellitus with other skin ulcer (principal); L89.214 Pressure ulcer of right hip, stage 4; E11.69 Type 2 diabetes mellitus with other specified complication; Z86.14 Personal history of Methicillin resistant Staphylococcus aureus infection; M86.68 Other chronic osteomyelitis, other site; L97.312 Non-pressure chronic ulcer of right ankle with fat layer exposed; R60.0 Localized edema; F17.200 Nicotine dependence, unspecified, uncomplicated
CPT/HCPCS: 11042; 73610

== ENCOUNTER 2021-03-19 13:00 | Outpatient (RCR) | payer MEDICARE, SELFPAY ==
[2021-02-17 00:25] VITALS: BP 156/52; PULSE 77; RESP 18; TEMP 36.2; BMI 26.3
[2021-02-19 13:07] VITALS: BP 105/63; PULSE 91; RESP 20; TEMP 36.1
--- NOTE | 2021-02-19 15:32 | PN.PCM_ITS ---
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 History of Wound: Surgery 09/14/20 - Excision right trochanteric pressure sore, Stage IV, with partial ostectomy for osteomyelitis. Wound care - Right lateral ankle moistened Aquacel-Ag covered with gauze daily. Right lateral hip remains healed. Double tubigrip topped with RICHARDSON wrap for compression. Wound culture of the right lateral culture was obtained on 01/01/21 which was positive for MRSA and Corynebacterium striatum. He was started on Doxycycline. Operative cultures - Bone was positive for E. coli and Soft Tissue was negative. He completed Levaquin. Pathology - positive for acute and chronic osteomyelitis. Prealbumin from 09/15/20 was 18.1. HgbA1c from 09/14/[address] on 07/31/2020 did not show evidence of osteomyelitis. Ulcerating lesion in the lateral posterior aspect of the right buttock with increased markings in the subcutaneous fat. This abuts the underlying gluteus muscle. Right lateral ankle ulcer has slowed down healing. Vascular studies ordered and scheduled for next week. Today he denies any fever, chills, n/v. Progress of Wound: Right lateral ankle ulcer is stable. Objective Data Objective Data Vital Signs: Vital Signs Temp Pulse Resp BP 97 F L 91 20 H 105/63 02/19/21 13:07 02/19/21 13:07 02/19/21 13:07 02/19/21 13:07 Weight: 308 lb 10.354 oz Body Mass Index (BMI) 26.3 Charges/Coding Procedures Integumentary 111xxx-113xx: 98238 Berna subq tissue 20 sq cm/< Physical Exam Const alert and oriented x3 HEENT normocephalic Head and Scalp: atraumatic Resp normal respiratory effort Cardio regular rate Extremity normal capillary refill Extremity Narrative: Bilateral lower extremity edema Skin Wound Narrative: Right lateral ankle ulcer stable but no improvement from last visit. Neuro CN's II-XII intact bilaterally Psych Appearance: grossly normal Debridement Note Debridement Note Wound debrided: lateral leg ulcer Laterality: Right Type of Debridement: Excisional debridement Anesthesia Used: 5% Lidocaine Gel Depth: Down to and including healthy tissue and in the subcutaneous layer Percentage of wound debrided: 100 Instrument Used: 3mm curette Tissue Removed: Subcutaneous tissue and slough Severity: Fat Layer Exposed Amount of bleeding with debridement: Mild Bleeding Controlled with: Pressure Patient tolerated procedure: Patient tolerated procedure well Post-Debridement Measurements and Additional Note: Post-Debridement Measurements/Treatment WC - Nurse 1 - General Ulcer Assessment Start: 02/19/21 13:07 Freq: Status: Active Protocol: NADIA Activity Type Activity Date Activity User E-Sign Co-Sign Detail Recorded Client Recorded Date Recorded By Document 02/19/21 13:07 DL [id number] 02/19/21 13:11 DL 02/19/21 13:07 WC - Today's Visit Information Type of service Follow-up Visit (Physician/ASSISTANT PROFESSOR OF EDUCATION ) Arrival Mode Ambulatory Transfer Assistance None Patient Identification Verified (Name & Yes ) Patient Requires Transmission-Based No Precautions Height and Weight Weight 308 lb 10.354 oz Weight in Pounds 308.6 lbs Weight Measurement Method Estimated by Patient Vital Signs Temperature (97.8 F-99.1 F) 97 F L Temperature Source Temporal Pulse Rate (60-100) 91 Pulse Location Monitor Respiratory Rate (12-18) 20 H Respiratory rate source Observation Blood Pressure (90/60-120/80) 105/63 Blood Pressure Mean (mm Hg) 77 Source Monitor History Since Last Visit- (Skip if this is Patient's initial visit) Have you changed medications since your No last visit? Any new allergies or adverse reactions No Had a fall/change in ADL's that may No increase risk of falls Signs or symptoms of abuse and/or No neglect since last visit Have you been in the hospital since your No last visit? Has dressing in place as prescribed Yes Has compression in place as prescribed Yes Has offloadiing in place as prescribed N/A Experienced any changes in pain level or No management Pain Scale: 0-10 Numeric Is Patient Pain Free? Yes - Nurse 1 - General Ulcer Measurement Start: 02/19/21 13:07 Freq: Status: Active Protocol: Activity Type Activity Date Activity User E-Sign Co-Sign Detail Recorded Client Recorded Date Recorded By Document 02/19/21 13:07 DL [id number] 02/19/21 13:11 DL 02/19/21 13:07 Wound Center Nurse 1 #5 right ankle -Current Size (cm) - Length 0.9 -Current Size (cm) - Width 0.9 -Current Size (cm) - Depth 0.3 -Total Square Cm 0.81 -Photo Taken No -Exudate Amt Small -Wound Margin Distinct, Outline Attached -Granulation Amt Medium (34-66%) -Granulation Quality Red -Necrosis Amt Medium (34-66%) -Necrotic Tissue Type Adherent Slough -Structure Exposed N/A -Texture (Cammie-wound Skin Appearance) Scarring -Moisture ([place]-wound Skin Appearance) No Abnormality -Color (Cammie-wound Skin Appearance) No Abnormality -Temperature (Cammie-wound Skin No Abnormality Appearance) (Pt Warm) -Tenderness on Palpation (Cammie-wound No Skin Appearance) -Ulcer Cleansing Rinsed/ Irrigated with Saline -Foul Odor after Cleansing No -Anesthetic Used 5% Lidocaine Gel Right Calf (cm) 31 Right Ankle (cm) 23.3 WC - Nurse 2 - General Ulcer CM Notes Start: 02/19/21 13:07 Freq: Status: Active Protocol: Activity Type Activity Date Activity User E-Sign Co-Sign Detail Recorded Client Recorded Date Recorded By Document 02/19/21 13:24 VIELKA [id number] 02/19/21 13:25 VIELKA Edit Result 02/19/21 13:24 VIELKA (1) [id number] 02/19/21 13:26 VIELKA (1) #5 right ankle - Post Debridement (cm) - Length => 1.2 - Post Debridement (cm) - Width => 1.2 - Post Debridement (cm) - Depth => 0.3 - Total Square (Post) (cm) => 1.44 - Area of Debridement (cm) - Length => 1.2 - Area of Debridement (cm) - Width => 1.2 - Total Square (Area) (cm) => 1.44 02/19/21 13:24 Wound Center Nurse 2 #5 right ankle -Time 13:24 -Correct Patient Yes -Correct Side, Site, Position Yes -Correct Procedure Yes -Procedure Performed Yes -Type of Procedure Incision & Drainage -Clinical Debridement Subcutaneous -Tissue Removed Subcutaneous -Post Debridement (cm) - Length 1.2 -Post Debridement (cm) - Width 1.2 -Post Debridement (cm) - Depth 0.3 -Total Square (Post) (cm) 1.44 -Area of Debridement (cm) - Length 1.2 -Area of Debridement (cm) - Width 1.2 -Total Square (Area) (cm) 1.44 -Tunneling No -Undermining/Tunneling No -Circular Undermining No -Wound/Ulcer Outcome Not Healed -Ulcer Cleansing Rinsed/ Irrigated with Saline -Foul Odor after Cleansing No -Bioengineered Tissue No -Bleeding Controlled with Pressure -Offloading No -Treatment Response Procedure Tolerated Well -Debridement - Subq, 1st 20sq cm Yes Pain Scale: 0-10 Numeric Is Patient Pain Free? Yes - Nurse 3 - General Ulcer D/C NN Start: 02/19/21 13:07 Freq: Status: Active Protocol: Activity Type Activity Date Activity User E-Sign Co-Sign Detail Recorded Client Recorded Date Recorded By Document 02/19/21 13:32 [facility] [id number] 02/19/21 13:33 [facility] 02/19/21 13:32 Wound Care Nurse 3 #5 right ankle -Ulcer Cleansing Rinsed/ Irrigated with Saline -Foul Odor after Cleansing No -Primary Dressing Applied Aquacel AG 2x2 -Other Dressing drsg per ak bakeshop cleaner -Primary Dressing Covered/Secured with Dry Gauze, Secured with Tape -Aquacel AG 2x2 1 Right -Other wearing own compression stockings Treatment Response Procedure Tolerated Well Pain Scale: 0-10 Numeric Is Patient Pain Free? Yes - Visit Discharge Discharge Condition Stable Ambulatory Status Wheelchair Transportation Private Auto Accompanied by family friend Facility Type Home Health Assessment/Plan Assessment/Plan (1) Diabetic ulcer of right ankle: CODE(S): E11.622 - Type 2 diabetes mellitus with other skin ulcer; L97.319 - Non-pressure chronic ulcer of right ankle with unspecified severity (2) Ulcer of right ankle: CODE(S): L97.319 - Non-pressure chronic ulcer of right ankle with unspecified severity (3) Edema of right lower extremity: CODE(S): R60.0 - Localized edema (4) Diabetes: CODE(S): E11.9 - Type 2 diabetes mellitus without complications (5) Smoker: CODE(S): F17.200 - Nicotine dependence, unspecified, uncomplicated PLAN: Wound care - Right lateral hip remains healed. Right lateral ankle moistened Aquacel-Ag (silver alginate) daily covered with gauze. Double tubigrip for compression. Stop the RICHARDSON wrap because he is having difficulties with it not staying on. The compression has helped decreased his edema. His skin is very dry, encouraged him to use lotion at least once per day and to increase his water intake. Wound culture of the right lateral culture was obtained on 01/01/21 which was positive for MRSA and Corynebacterium striatum. Completed Doxycycline. Right ankle x-ray from 01/22/21 showed Soft tissue swelling around ankle. Operative cultures from 09/14/20 showed E. coli in the bone and was negative or organisms. He was treated with Levaquin. Prealbumin from 09/15/20 was 18.1. Encourage nutritional supplementation with protein to help the healing process. HgbA1c from 09/14/20 was 5.8. For elective surgeries like a myocutaneous flap to close the ulcer, the HgbA1c needs to be less than 8. Since there has been a delay in the healing of his right lateral ankle ulcer, will order arterial and vascular studies of his right lower extremity. Unable to find any recent studies in the past year. His vascular studies are scheduled for next week. Followup one week after his vascular studies.
[2021-02-26 11:38] VITALS: BP 126/56; PULSE 89; RESP 20; TEMP 35.1; BMI 26.3
--- NOTE | 2021-02-26 13:59 | PCM.WC.PN ---
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 Progress of Wound: Right lateral ankle ulcer is stable. Objective Data Objective Data Vital Signs: Vital Signs Temp Pulse Resp BP 95.2 F L 89 20 H 126/56 H 02/26/21 11:38 02/26/21 11:38 02/26/21 11:38 02/26/21 11:38 Weight: 308 lb 10.354 oz Body Mass Index (BMI) 26.3 Charges/Coding Procedures Integumentary 10xxx: 09929 Drainage of skin abscess 111xxx-113xx: 36033 Berna subq tissue 20 sq cm/< Physical Exam Const alert and oriented x3 General Appearance: cooperative HEENT normocephalic Resp normal respiratory effort Cardio regular rhythm GI non-tender Palpation: soft Extremity normal capillary refill General Extremity: edema Skin Wound Narrative: Right lateral ankle ulcer is stable. He has +2 pitting edema. Neuro CN's II-XII intact bilaterally Psych Appearance: grossly normal Thought Process: normal thought process Debridement Note Debridement Note Wound debrided: lateral ankle ulcer Laterality: Right Type of Debridement: Excisional debridement Anesthesia Used: 5% Lidocaine Gel Depth: Down to and including healthy tissue and in the subcutaneous layer Percentage of wound debrided: 100 Instrument Used: 3mm curette Tissue Removed: Subcutaneous tissue and slough Severity: Fat Layer Exposed Amount of bleeding with debridement: Mild Bleeding Controlled with: Pressure Patient tolerated procedure: Patient tolerated procedure well Post-Debridement Measurements and Additional Note: Post-Debridement Measurements/Treatment - Nurse 1 - General Ulcer Assessment Start: 02/19/21 13:07 Freq: Status: Active Protocol: NADIA Activity Type Activity Date Activity User E-Sign Co-Sign Detail Recorded Client Recorded Date Recorded By Document 02/19/21 13:07 DL [id number] 02/19/21 13:11 DL Document 02/26/21 11:38 DL [id number] 02/26/21 11:44 DL 02/19/21 02/26/21 13:07 11:38 - Today's Visit Information Type of service Follow-up Visit Follow-up Visit (Physician/LAMINATING MACHINE OFFBEARER (Physician/LAMINATING MACHINE OFFBEARER ) ) Arrival Mode Ambulatory Ambulatory, Wheelchair Transfer Assistance None None Patient Identification Verified (Name & Yes Yes ) Patient Requires Transmission-Based No No Precautions Height and Weight Weight 308 lb 10.354 oz Weight in Pounds 308.6 lbs Weight Measurement Method Estimated by Patient Body Mass Index (BMI) 26.3 BMI Classification Overweight Vital Signs Temperature (97.8 F-99.1 F) 97 F L 95.2 F L Temperature Source Temporal Temporal Pulse Rate (60-100) 91 89 Pulse Location Monitor Monitor Respiratory Rate (12-18) 20 H 20 H Respiratory rate source Observation Observation Blood Pressure (90/60-120/80) 105/63 126/56 H Blood Pressure Mean (mm Hg) 77 79 Source Monitor Monitor History Since Last Visit- (Skip if this is Patient's initial visit) Have you changed medications since your No No last visit? Any new allergies or adverse reactions No No Had a fall/change in ADL's that may No No increase risk of falls Signs or symptoms of abuse and/or No No neglect since last visit Have you been in the hospital since your No No last visit? Has dressing in place as prescribed Yes Yes Has compression in place as prescribed Yes Yes Has offloadiing in place as prescribed N/A N/A Experienced any changes in pain level or No No management Pain Scale: 0-10 Numeric Is Patient Pain Free? Yes Yes WC - Nurse 1 - General Ulcer Measurement Start: 02/19/21 13:07 Freq: Status: Active Protocol: Activity Type Activity Date Activity User E-Sign Co-Sign Detail Recorded Client Recorded Date Recorded By Document 02/19/21 13:07 DL [id number] 02/19/21 13:11 DL Document 02/26/21 11:38 DL [id number] 02/26/21 11:44 DL 02/19/21 02/26/21 13:07 11:38 Wound Center Nurse 1 #5 right ankle -Current Size (cm) - Length 0.9 1.2 -Current Size (cm) - Width 0.9 1 -Current Size (cm) - Depth 0.3 0.2 -Total Square Cm 0.81 1.2 -Photo Taken No No -Exudate Amt Small Medium -Exudate Type Serosanguineous -Wound Margin Distinct, Distinct, Outline Outline Attached Attached -Granulation Amt Medium (34-66%) Large (67-100%) -Granulation Quality Red Red -Necrosis Amt Medium (34-66%) Small (1-33%) -Necrotic Tissue Type Adherent Slough Adherent Slough -Structure Exposed N/A N/A -Texture (Acmmie-wound Skin Appearance) Scarring Localized Edema ,Scarring -Moisture (Cammie-wound Skin Appearance) No Abnormality Dry/Scaly -Color (Cammie-wound Skin Appearance) No Abnormality Hemosiderin Staining -Temperature (Cammie-wound Skin No Abnormality No Abnormality Appearance) (Pt Warm) (Pt Warm) -Tenderness on Palpation (Cammie-wound No No Skin Appearance) -Ulcer Cleansing Rinsed/ Rinsed/ Irrigated with Irrigated with Saline Saline -Foul Odor after Cleansing No No -Anesthetic Used 5% Lidocaine 4% Lidocaine Gel Solution Right Calf (cm) 31 31.5 Right Ankle (cm) 23.3 22 WC - Nurse 2 - General Ulcer CM Notes Start: 02/19/21 13:07 Freq: Status: Active Protocol: Activity Type Activity Date Activity User E-Sign Co-Sign Detail Recorded Client Recorded Date Recorded By Document 02/19/21 13:24 [id number] 02/19/21 13:25 Edit Result 02/19/21 13:24 JF (1) [id number] 02/19/21 13:26 JF Document 02/26/21 11:53 [id number] 02/26/21 11:54 (1) #5 right ankle - Post Debridement (cm) - Length => 1.2 - Post Debridement (cm) - Width => 1.2 - Post Debridement (cm) - Depth => 0.3 - Total Square (Post) (cm) => 1.44 - Area of Debridement (cm) - Length => 1.2 - Area of Debridement (cm) - Width => 1.2 - Total Square (Area) (cm) => 1.44 02/19/21 02/26/21 13:24 11:53 Wound Center Nurse 2 #5 right ankle -Time 13:24 11:54 -Correct Patient Yes Yes -Correct Side, Site, Position Yes Yes -Correct Procedure Yes Yes -Procedure Performed Yes Yes -Type of Procedure Incision & Debridement Drainage -Clinical Debridement Subcutaneous Subcutaneous -Tissue Removed Subcutaneous Subcutaneous -Post Debridement (cm) - Length 1.2 1.3 -Post Debridement (cm) - Width 1.2 1.3 -Post Debridement (cm) - Depth 0.3 0.3 -Total Square (Post) (cm) 1.44 1.69 -Area of Debridement (cm) - Length 1.2 1.3 -Area of Debridement (cm) - Width 1.2 1.3 -Total Square (Area) (cm) 1.44 1.69 -Tunneling No No -Undermining/Tunneling No No -Circular Undermining No No -Wound/Ulcer Outcome Not Healed Not Healed -Ulcer Cleansing Rinsed/ Rinsed/ Irrigated with Irrigated with Saline Saline -Foul Odor after Cleansing No No -Bioengineered Tissue No No -Bleeding Controlled with Pressure Pressure -Offloading No No -Treatment Response Procedure Procedure Tolerated Well Tolerated Well -Debridement - Subq, 1st 20sq cm Yes Yes Pain Scale: 0-10 Numeric Is Patient Pain Free? Yes Yes - Nurse 3 - General Ulcer D/C NN Start: 02/19/21 13:07 Freq: Status: Active Protocol: Activity Type Activity Date Activity User E-Sign Co-Sign Detail Recorded Client Recorded Date Recorded By Document 02/19/21 13:32 [facility] [id number] 02/19/21 13:33 [facility] Document 02/26/21 12:07 [facility] [id number] 02/26/21 12:08 [facility] 02/19/21 02/26/21 13:32 12:07 Wound Care Nurse 3 #5 right ankle -Ulcer Cleansing Rinsed/ Rinsed/ Irrigated with Irrigated with Saline Saline -Foul Odor after Cleansing No No -Primary Dressing Applied Aquacel AG 2x2 Aquacel AG 4x4 -Other Dressing drsg per [place] car sales representative -Primary Dressing Covered/Secured with Dry Gauze, Dry Gauze, Secured with Secured with Tape Tape -Other Covering DRSG PER [place] BRIDGE WORKER APPRENTICE -Aquacel AG 4x4 1 -Aquacel AG 2x2 1 Right -Other wearing own OWN COMPRESSION compression STOCKING stockings APPLIED Treatment Response Procedure Procedure Tolerated Well Tolerated Well Pain Scale: 0-10 Numeric Is Patient Pain Free? Yes Yes WC - Visit Discharge Discharge Condition Stable Stable Ambulatory Status Wheelchair Wheelchair Transportation Private Auto Private Auto Accompanied by family friend Facility Type Home Health Assessment/Plan Assessment/Plan (1) Diabetic ulcer of right ankle: CODE(S): E11.622 - Type 2 diabetes mellitus with other skin ulcer; L97.319 - Non-pressure chronic ulcer of right ankle with unspecified severity (2) Ulcer of right ankle: CODE(S): L97.319 - Non-pressure chronic ulcer of right ankle with unspecified severity (3) Edema of right lower extremity: CODE(S): R60.0 - Localized edema (4) Smoker: CODE(S): F17.200 - Nicotine dependence, unspecified, uncomplicated (5) Diabetes: CODE(S): E11.9 - Type 2 diabetes mellitus without complications PLAN: Wound care - Right lateral hip remains healed. Right lateral ankle moistened Aquacel-Ag (silver alginate) daily covered with gauze. He has a new compression stocking that zips. Concerned that he is still edematous. Recommend 3M 2 layer wraps but patient would like to try his compression stockings first. Recommend using a donut over ankle at night to prevent any pressure on right lateral ankle. His skin is very dry, encouraged him to use lotion at least once per day and to increase his water intake. Wound culture of the right lateral culture was obtained on 01/01/21 which was positive for MRSA and Corynebacterium striatum. Completed Doxycycline. Right ankle x-ray from 01/22/21 showed Soft tissue swelling around ankle. Arterial and venous studies done 02/26/21. Operative cultures from 09/14/20 showed E. coli in the bone and was negative or organisms. He was treated with Levaquin. Prealbumin from 09/15/20 was 18.1. Encourage nutritional supplementation with protein to help the healing process. HgbA1c from 09/14/20 was 5.8. For elective surgeries like a myocutaneous flap to close the ulcer, the HgbA1c needs to be less than 8. Since there has been a delay in the healing of his right lateral ankle ulcer, will order arterial and vascular studies of his right lower extremity.
[2021-03-19 13:10] VITALS: BP 146/67; PULSE 80; RESP 16; TEMP 35.8; BMI 26.3
--- NOTE | 2021-03-25 19:32 | PCM.WC.PN ---
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 History of Wound: Surgery 09/14/20 - Excision right trochanteric pressure sore, Stage IV, with partial ostectomy for osteomyelitis. Wound care - Right lateral ankle moistened Aquacel-Ag covered with gauze daily. Right lateral hip remains healed. Compression stocking for compression. Wound culture of the right lateral culture was obtained on 01/01/21 which was positive for MRSA and Corynebacterium striatum. He was started on Doxycycline. Operative cultures - Bone was positive for E. coli and Soft Tissue was negative. He completed Levaquin. Pathology - positive for acute and chronic osteomyelitis. Prealbumin from 09/15/20 was 18.1. HgbA1c from 09/14/[address] on 07/31/2020 did not show evidence of osteomyelitis. Ulcerating lesion in the lateral posterior aspect of the right buttock with increased markings in the subcutaneous fat. This abuts the underlying gluteus muscle. Right lateral ankle ulcer has slowed down healing. Arterial studies done 02/26/21 - The right ankle brachial index by the dorsalis pedis is 1.01. The left ankle brachial index by the dorsalis pedis is 1.05. Triphasic Doppler waveforms are noted at ankle level bilaterally. Arterial flow appears normal at ankle level bilaterally, and at digital level on the left. There is evidence mild arterial occlusive disease at digital level on the right. Venous studies completed 02/26/21 - Valvular competence appears intact within the proximal deep venous systems bilaterally. The great saphenous veins appear bilaterally patent and compressible segmentally. Sapheno-femoral junctions are bilaterally competent . Valvular competence appears to be intact segmentally within the great saphenous veins bilaterally. Small saphenous veins are patent and competent bilaterally. Today he denies any fever, chills, n/v. Progress of Wound: Right lateral ankle ulcer is stable. Objective Data Objective Data Vital Signs: Vital Signs Temp Pulse Resp BP 96.5 F L 80 16 146/67 H 03/19/21 13:10 03/19/21 13:10 03/19/21 13:10 03/19/21 13:10 Oxygen Delivery Method Room Air Weight: 308 lb 10.354 oz Body Mass Index (BMI) 26.3 Charges/Coding Procedures Integumentary 111xxx-113xx: 50959 Berna subq tissue 20 sq cm/< Physical Exam Const alert and oriented x3 General Appearance: cooperative HEENT normocephalic Resp normal respiratory effort Cardio regular rate Extremity normal capillary refill Extremity Narrative: edema+1 bilateral lower legs, improved using the compression stockings. General Extremity: edema Skin Wound Narrative: Right lateral ankle ulcer is stable, pink center, raised scarring surrounding the ulcer. Neuro CN's II-XII intact bilaterally Psych Appearance: grossly normal Thought Process: normal thought process Debridement Note Debridement Note Wound debrided: lateral ankle ulcer Laterality: Right Type of Debridement: Excisional debridement Anesthesia Used: 5% Lidocaine Gel Depth: Down to and including healthy tissue and in the subcutaneous layer Percentage of wound debrided: 100 Instrument Used: 3mm curette Tissue Removed: Subcutaneous tissue and slough Severity: Fat Layer Exposed Amount of bleeding with debridement: Mild Patient tolerated procedure: Patient tolerated procedure well Post-Debridement Measurements and Additional Note: Post-Debridement Measurements/Treatment - Nurse 1 - General Ulcer Assessment Start: 02/19/21 13:07 Freq: Status: Active Protocol: [email or web address] Activity Type Activity Date Activity User E-Sign Co-Sign Detail Recorded Client Recorded Date Recorded By Document 02/19/21 13:07 [id number] 02/19/21 13:11 DL Document 02/26/21 11:38 [id number] 02/26/21 11:44 DL Document 03/19/21 13:10 [facility] [id number] 03/19/21 13:18 [facility] 02/19/21 02/26/21 03/19/21 13:07 11:38 13:10 - Today's Visit Information Type of service Follow-up Visit Follow-up Visit Follow-up Visit (Physician/MANAGER TELEMETRY (Physician/MANAGER TELEMETRY (Physician/MANAGER TELEMETRY ) ) ) Arrival Mode Ambulatory Ambulatory, Wheelchair Wheelchair Transfer Assistance None None Other Transfer Assist (Other) stand by assist Accompanied by friend Patient Identification Verified (Name & Yes Yes Yes ) Patient Requires Transmission-Based No No No Precautions Height and Weight Weight 308 lb 10.354 oz Weight in Pounds 308.6 lbs Weight Measurement Method Estimated by Patient Body Mass Index (BMI) 26.3 26.3 BMI Classification Overweight Overweight Vital Signs Temperature (97.8 F-99.1 F) 97 F L 95.2 F L 96.5 F L Temperature Source Temporal Temporal Temporal Pulse Rate (60-100) 91 89 80 Pulse Location Monitor Monitor Monitor Respiratory Rate (12-18) 20 H 20 H 16 Respiratory rate source Observation Observation Observation Oxygen Delivery Method Room Air Blood Pressure (90/60-120/80) 105/63 126/56 H 146/67 H Blood Pressure Mean (mm Hg) 77 79 93 Source Monitor Monitor Monitor Position Sitting Blood Pressure Location Left Arm History Since Last Visit- (Skip if this is Patient's initial visit) Have you changed medications since your No No No last visit? Any new allergies or adverse reactions No No No Had a fall/change in ADL's that may No No No increase risk of falls Signs or symptoms of abuse and/or No No No neglect since last visit Have you been in the hospital since your No No No last visit? Has dressing in place as prescribed Yes Yes Yes Has compression in place as prescribed Yes Yes Yes Has offloadiing in place as prescribed N/A N/A N/A Experienced any changes in pain level or No No No management Left Footwear Regular Shoe Right Footwear Regular Shoe Pain Scale: 0-10 Numeric Is Patient Pain Free? Yes Yes Yes WC - Nurse 1 - General Ulcer Measurement Start: 02/19/21 13:07 Freq: Status: Active Protocol: Activity Type Activity Date Activity User E-Sign Co-Sign Detail Recorded Client Recorded Date Recorded By Document 02/19/21 13:07 DL [id number] 02/19/21 13:11 DL Document 02/26/21 11:38 DL [id number] 02/26/21 11:44 DL Document 03/19/21 13:10 [facility] [id number] 03/19/21 13:18 [facility] 02/19/21 02/26/21 03/19/21 13:07 11:38 13:10 Wound Center Nurse 1 #5 right ankle -Combined with other wound No -Current Size (cm) - Length 0.9 1.2 0.8 -Current Size (cm) - Width 0.9 1 0.7 -Current Size (cm) - Depth 0.3 0.2 0.3 -Total Square Cm 0.81 1.2 0.56 -Date of Last Picture (Recall this 03/19/21 field) -Photo Taken No No Yes -Epithelialization None Present -Tunneling No -Undermining/Tunneling No -Circular Undermining No -Exudate Amt Small Medium Medium -Exudate Type Serosanguineous Serosanguineous -Wound Margin Distinct, Distinct, Thickened Outline Outline Attached Attached -Granulation Amt Medium (34-66%) Large (67-100%) Small (1-33%) -Granulation Quality Red Red Britt -Slough/Fibrin Yes -Necrosis Amt Medium (34-66%) Small (1-33%) Large (67-100%) -Necrotic Tissue Type Adherent Slough Adherent Slough Adherent Slough -Structure Exposed N/A N/A -Texture (Cammie-wound Skin Appearance) Scarring Localized Edema Assessed, ,Scarring Scarring -Moisture (Cammie-wound Skin Appearance) No Abnormality Dry/Scaly Assessed -Color (Cammie-wound Skin Appearance) No Abnormality Hemosiderin Assessed, Staining Erythema -Temperature (Cammie-wound Skin No Abnormality No Abnormality Appearance) (Pt Warm) (Pt Warm) -Tenderness on Palpation (Cammie-wound No No No Skin Appearance) -Ulcer Cleansing Rinsed/ Rinsed/ Soap and Water Irrigated with Irrigated with Saline Saline -Foul Odor after Cleansing No No No -Anesthetic Used 5% Lidocaine 4% Lidocaine 5% Lidocaine Gel Solution Gel Right Calf (cm) 31 31.5 Right Ankle (cm) 23.3 22 WC - Nurse 2 - General Ulcer CM Notes Start: 02/19/21 13:07 Freq: Status: Active Protocol: Activity Type Activity Date Activity User E-Sign Co-Sign Detail Recorded Client Recorded Date Recorded By Document 02/19/21 13:24 [id number] 02/19/21 13:25 Edit Result 02/19/21 13:24 VIELKA (1) [id number] 02/19/21 13:26 Document 02/26/21 11:53 VIELKA [id number] 02/26/21 11:54 Document 03/19/21 13:26 VIELKA [id number] 03/19/21 13:28 VIELKA (1) #5 right ankle - Post Debridement (cm) - Length => 1.2 - Post Debridement (cm) - Width => 1.2 - Post Debridement (cm) - Depth => 0.3 - Total Square (Post) (cm) => 1.44 - Area of Debridement (cm) - Length => 1.2 - Area of Debridement (cm) - Width => 1.2 - Total Square (Area) (cm) => 1.44 02/19/21 02/26/21 03/19/21 13:24 11:53 13:26 Wound Center Nurse 2 #5 right ankle -Time 13:24 11:54 13:27 -Correct Patient Yes Yes Yes -Correct Side, Site, Position Yes Yes Yes -Correct Procedure Yes Yes Yes -Procedure Performed Yes Yes Yes -Type of Procedure Incision & Debridement Debridement Drainage -Clinical Debridement Subcutaneous Subcutaneous Subcutaneous -Tissue Removed Subcutaneous Subcutaneous Subcutaneous -Post Debridement (cm) - Length 1.2 1.3 1.2 -Post Debridement (cm) - Width 1.2 1.3 1 -Post Debridement (cm) - Depth 0.3 0.3 0.2 -Total Square (Post) (cm) 1.44 1.69 1.2 -Area of Debridement (cm) - Length 1.2 1.3 1.2 -Area of Debridement (cm) - Width 1.2 1.3 1 -Total Square (Area) (cm) 1.44 1.69 1.2 -Tunneling No No No -Undermining/Tunneling No No No -Circular Undermining No No No -Wound/Ulcer Outcome Not Healed Not Healed Not Healed -Ulcer Cleansing Rinsed/ Rinsed/ Rinsed/ Irrigated with Irrigated with Irrigated with Saline Saline Saline -Foul Odor after Cleansing No No No -Bioengineered Tissue No No No -Bleeding Controlled with Pressure Pressure Pressure -Offloading No No No -Treatment Response Procedure Procedure Procedure Tolerated Well Tolerated Well Tolerated Well -Debridement - Subq, 1st 20sq cm Yes Yes Yes Pain Scale: 0-10 Numeric Is Patient Pain Free? Yes Yes Yes WC - Nurse 3 - General Ulcer D/C NN Start: 02/19/21 13:07 Freq: Status: Active Protocol: Activity Type Activity Date Activity User E-Sign Co-Sign Detail Recorded Client Recorded Date Recorded By Document 02/19/21 13:32 [facility] [id number] 02/19/21 13:33 [facility] Document 02/26/21 12:07 [facility] [id number] 02/26/21 12:08 [facility] Document 03/19/21 13:35 [facility] [id number] 03/19/21 13:36 [facility] 02/19/21 02/26/21 03/19/21 13:32 12:07 13:35 Wound Care Nurse 3 #5 right ankle -Ulcer Cleansing Rinsed/ Rinsed/ Rinsed/ Irrigated with Irrigated with Irrigated with Saline Saline Saline -Foul Odor after Cleansing No No No -Primary Dressing Applied Aquacel AG 2x2 Aquacel AG 4x4 Aquacel AG 4x4 -Other Dressing drsg per [place] anger control counselor drsg per [place] anger control counselor -Primary Dressing Covered/Secured with Dry Gauze, Dry Gauze, Dry Gauze, Secured with Secured with Secured with Tape Tape Tape -Other Covering DRSG PER [place] CAMOUFLAGE SPECIALIST -Aquacel AG 4x4 1 1 -Aquacel AG 2x2 1 Right -Other wearing own OWN COMPRESSION own compression compression STOCKING stocking stockings APPLIED applied Treatment Response Procedure Procedure Procedure Tolerated Well Tolerated Well Tolerated Well Pain Scale: 0-10 Numeric Is Patient Pain Free? Yes Yes Yes WC - Visit Discharge Discharge Condition Stable Stable Stable Ambulatory Status Wheelchair Wheelchair Wheelchair Transportation Private Auto Private Auto Private Auto Accompanied by family friend friend Facility Type Home Health Assessment/Plan Assessment/Plan (1) Ulcer of right ankle: CODE(S): L97.319 - Non-pressure chronic ulcer of right ankle with unspecified severity (2) Edema of right lower extremity: CODE(S): R60.0 - Localized edema (3) Smoker: CODE(S): F17.200 - Nicotine dependence, unspecified, uncomplicated PLAN: Wound care - Right lateral hip remains healed. Right lateral ankle moistened Aquacel-Ag (silver alginate) daily covered with gauze. He has a new compression stocking that zips. He now has +1 edema, which is improved compared to the tubigrip compression. Recommend using a donut over ankle at night to prevent any pressure on right lateral ankle. His skin is very dry, encouraged him to use lotion at least once per day and to increase his water intake. Wound culture of the right lateral culture was obtained on 01/01/21 which was positive for MRSA and Corynebacterium striatum. Completed Doxycycline. Right ankle x-ray from 01/22/21 showed Soft tissue swelling around ankle. Arterial and venous studies done 02/26/21 with results discussed in HPI. Operative cultures from 09/14/20 showed E. coli in the bone and was negative or organisms. He was treated with Levaquin. Prealbumin from 09/15/20 was 18.1. Encourage nutritional supplementation with protein to help the healing process. HgbA1c from 09/14/20 was 5.8. For elective surgeries like a myocutaneous flap to close the ulcer, the HgbA1c needs to be less than 8. Follow up 2 weeks.
== END 2021-03-19 23:59 ==
LOC: WC 13:00
PROVIDERS: PCP Student in an Organized Health Care Education/Training Program; Referring Provider Family Medicine; Visit Provider Nurse Practitioner Family
DX: E11.622 Type 2 diabetes mellitus with other skin ulcer (principal); L97.312 Non-pressure chronic ulcer of right ankle with fat layer exposed; F17.200 Nicotine dependence, unspecified, uncomplicated; R60.0 Localized edema
CPT/HCPCS: 11042; 93923; 93970

== ENCOUNTER 2021-04-16 13:30 | Outpatient (RCR) | payer MEDICARE, SELFPAY ==
[2021-03-20 00:29] VITALS: BP 146/67; PULSE 80; RESP 16; TEMP 35.8; BMI 26.3
[2021-04-02 13:11] VITALS: BP 120/54; PULSE 77; RESP 16; TEMP 35.9; BMI 26.3
--- NOTE | 2021-04-02 13:40 | PCM.WC.PN ---
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 History of Wound: Surgery 09/14/20 - Excision right trochanteric pressure sore, Stage IV, with partial ostectomy for osteomyelitis. Wound care - Right lateral ankle will start collagen hydrogel covered with adaptic and topped with gauze daily. Right lateral hip remains healed. He is using a zip up compression sleeve. Wound culture of the right lateral culture was obtained on 01/01/21 which was positive for MRSA and Corynebacterium striatum. He was started on Doxycycline. Operative cultures - Bone was positive for E. coli and Soft Tissue was negative. He completed Levaquin. Pathology - positive for acute and chronic osteomyelitis. Prealbumin from 09/15/20 was 18.1. HgbA1c from 09/14/[address] on 07/31/2020 did not show evidence of osteomyelitis. Ulcerating lesion in the lateral posterior aspect of the right buttock with increased markings in the subcutaneous fat. This abuts the underlying gluteus muscle. Right lateral ankle ulcer has slowed down healing. Arterial studies done 02/26/21 - The right ankle brachial index by the dorsalis pedis is 1.01. The left ankle brachial index by the dorsalis pedis is 1.05. Triphasic Doppler waveforms are noted at ankle level bilaterally. Arterial flow appears normal at ankle level bilaterally, and at digital level on the left. There is evidence mild arterial occlusive disease at digital level on the right. Venous studies completed 02/26/21 - Valvular competence appears intact within the proximal deep venous systems bilaterally. The great saphenous veins appear bilaterally patent and compressible segmentally. Sapheno-femoral junctions are bilaterally competent . Valvular competence appears to be intact segmentally within the great saphenous veins bilaterally. Small saphenous veins are patent and competent bilaterally. Today he denies any fever, chills, n/v. Progress of Wound: Right lateral ankle ulcer is stable. Not much improvement. There is good bleeding with debridement. There is +1 edema. Objective Data Objective Data Vital Signs: Vital Signs Temp Pulse Resp BP 96.7 F L 77 16 120/54 L 04/02/21 13:11 04/02/21 13:11 04/02/21 13:11 04/02/21 13:11 Oxygen Delivery Method Room Air Weight: 308 lb 10.354 oz Body Mass Index (BMI) 26.3 Charges/Coding Procedures Integumentary 111xxx-113xx: 22952 Berna subq tissue 20 sq cm/< Physical Exam Const alert and oriented x3 General Appearance: cooperative HEENT normocephalic Resp normal respiratory effort Cardio regular rate Extremity normal capillary refill General Extremity: edema Skin Wound Narrative: Right lateral ankle ulcer is stable. Not much improvement. There is good bleeding with debridement. There is +1 edema. Neuro CN's II-XII intact bilaterally Psych affect normal Debridement Note Debridement Note Wound debrided: lateral ankle ulcer Laterality: Right Type of Debridement: Excisional debridement Anesthesia Used: 5% Lidocaine Gel Depth: Down to and including healthy tissue and in the subcutaneous layer Percentage of wound debrided: 100 Instrument Used: 3mm curette Tissue Removed: Subcutaneous tissue and slough Severity: Fat Layer Exposed Amount of bleeding with debridement: Mild Bleeding Controlled with: Pressure Patient tolerated procedure: Patient tolerated procedure well Post-Debridement Measurements and Additional Note: Post-Debridement Measurements/Treatment - Nurse 1 - General Ulcer Assessment Start: 04/02/21 13:10 Freq: Status: Active Protocol: DELVIS.FRANCISCA Activity Type Activity Date Activity User E-Sign Co-Sign Detail Recorded Client Recorded Date Recorded By Document 04/02/21 13:11 [facility] [id number] 04/02/21 13:17 [facility] 04/02/21 13:11 - Today's Visit Information Type of service Follow-up Visit (Physician/FOUNDATION COORDINATOR ) Arrival Mode Wheelchair Transfer Assistance None Accompanied by friend Patient Identification Verified (Name & Yes ) Patient Requires Transmission-Based No Precautions Height and Weight Body Mass Index (BMI) 26.3 BMI Classification Overweight Vital Signs Temperature (97.8 F-99.1 F) 96.7 F L Temperature Source Temporal Pulse Rate (60-100) 77 Pulse Location Monitor Respiratory Rate (12-18) 16 Respiratory rate source Observation Oxygen Delivery Method Room Air Blood Pressure (90/60-120/80) 120/54 L Blood Pressure Mean (mm Hg) 76 Source Monitor Position Sitting Blood Pressure Location Left Arm History Since Last Visit- (Skip if this is Patient's initial visit) Have you changed medications since your No last visit? Any new allergies or adverse reactions No Had a fall/change in ADL's that may No increase risk of falls Signs or symptoms of abuse and/or No neglect since last visit Have you been in the hospital since your No last visit? Has dressing in place as prescribed Yes Has compression in place as prescribed Yes Has offloadiing in place as prescribed N/A Experienced any changes in pain level or No management Left Footwear Regular Shoe Right Footwear Regular Shoe Pain Scale: 0-10 Numeric Is Patient Pain Free? Yes DELVIS - Nurse 1 - General Ulcer Measurement Start: 04/02/21 13:10 Freq: Status: Active Protocol: Activity Type Activity Date Activity User E-Sign Co-Sign Detail Recorded Client Recorded Date Recorded By Document 04/02/21 13:11 [facility] [id number] 04/02/21 13:17 [facility] 04/02/21 13:11 Wound Center Nurse 1 #5 right ankle -Combined with other wound No -Current Size (cm) - Length 1.2 -Current Size (cm) - Width 0.9 -Current Size (cm) - Depth 0.3 -Total Square Cm 1.08 -Date of Last Picture (Recall this 04/02/21 field) -Photo Taken Yes -Epithelialization None Present -Tunneling No -Undermining/Tunneling No -Circular Undermining No -Exudate Amt Medium -Exudate Type Serosanguineous -Wound Margin Distinct, Outline Attached -Granulation Amt Small (1-33%) -Granulation Quality [place] -Slough/Fibrin Yes -Necrosis Amt Large (67-100%) -Necrotic Tissue Type Eschar -Texture (Cammie-wound Skin Appearance) Assessed, Scarring -Moisture (Cammie-wound Skin Appearance) Assessed,Dry/ Scaly -Color (Cammie-wound Skin Appearance) Assessed -Temperature (Cammie-wound Skin No Abnormality Appearance) (Pt Warm) -Tenderness on Palpation (Cammie-wound No Skin Appearance) -Ulcer Cleansing Rinsed/ Irrigated with Saline -Foul Odor after Cleansing No -Anesthetic Used 5% Lidocaine Gel DELVIS - Nurse 2 - General Ulcer CM Notes Start: 04/02/21 13:10 Freq: Status: Active Protocol: Activity Type Activity Date Activity User E-Sign Co-Sign Detail Recorded Client Recorded Date Recorded By Document 04/02/21 13:31 [id number] 04/02/21 13:33 JF 04/02/21 13:31 Wound Center Nurse 2 -Time 13:31 -Correct Patient Yes -Correct Side, Site, Position Yes -Correct Procedure Yes -Procedure Performed Yes -Type of Procedure Debridement -Clinical Debridement Subcutaneous -Tissue Removed Subcutaneous -Post Debridement (cm) - Length 1.2 -Post Debridement (cm) - Width 1.0 -Post Debridement (cm) - Depth 0.3 -Total Square (Post) (cm) 1.20 -Area of Debridement (cm) - Length 1.2 -Area of Debridement (cm) - Width 1.0 -Total Square (Area) (cm) 1.20 -Tunneling No -Undermining/Tunneling No -Circular Undermining No -Wound/Ulcer Outcome Not Healed -Ulcer Cleansing Rinsed/ Irrigated with Saline -Foul Odor after Cleansing No -Bioengineered Tissue No -Offloading No -Treatment Response Procedure Tolerated Well -Debridement - Subq, 1st 20sq cm Yes Pain Scale: 0-10 Numeric Is Patient Pain Free? Yes Assessment/Plan Assessment/Plan (1) Ulcer of right ankle: CODE(S): L97.319 - Non-pressure chronic ulcer of right ankle with unspecified severity (2) Edema of right lower extremity: CODE(S): R60.0 - Localized edema (3) Smoker: CODE(S): F17.200 - Nicotine dependence, unspecified, uncomplicated (4) Diabetes: CODE(S): E11.9 - Type 2 diabetes mellitus without complications PLAN: Wound care - Right lateral hip remains healed. Right lateral ankle collagen hydrogel covered with adaptic and topped with gauze daily. He has a new compression stocking that zips. He now has +1 edema, which is improved compared to the tubigrip compression. Recommend using a donut over ankle at night to prevent any pressure on right lateral ankle. His skin is very dry, encouraged him to use lotion at least once per day and to increase his water intake. Wound culture of the right lateral culture was obtained on 01/01/21 which was positive for MRSA and Corynebacterium striatum. Completed Doxycycline. Right ankle x-ray from 01/22/21 showed Soft tissue swelling around ankle. Arterial and venous studies done 02/26/21 with results discussed in HPI. Operative cultures from 09/14/20 showed E. coli in the bone and was negative or organisms. He was treated with Levaquin. Prealbumin from 09/15/20 was 18.1. Encourage nutritional supplementation with protein to help the healing process. HgbA1c from 09/14/20 was 5.8. For elective surgeries like a myocutaneous flap to close the ulcer, the HgbA1c needs to be less than 8. Follow up 2 weeks.
[2021-04-16 13:42] VITALS: BP 123/52; PULSE 78; RESP 16; TEMP 36; BMI 26.3
--- NOTE | 2021-04-16 14:17 | PCM.WC.PN ---
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 History of Wound: Surgery 09/14/20 - Excision right trochanteric pressure sore, Stage IV, with partial ostectomy for osteomyelitis. Wound care - Right lateral ankle will start collagen hydrogel covered with adaptic and topped with gauze daily. Right lateral hip remains healed. He is using a zip up compression sleeve. Wound culture of the right lateral culture was obtained on 01/01/21 which was positive for MRSA and Corynebacterium striatum. He was started on Doxycycline. Operative cultures - Bone was positive for E. coli and Soft Tissue was negative. He completed Levaquin. Pathology - positive for acute and chronic osteomyelitis. Prealbumin from 09/15/20 was 18.1. HgbA1c from 09/14/[address] on 07/31/2020 did not show evidence of osteomyelitis. Ulcerating lesion in the lateral posterior aspect of the right buttock with increased markings in the subcutaneous fat. This abuts the underlying gluteus muscle. Right lateral ankle ulcer has slowed down healing. Arterial studies done 02/26/21 - The right ankle brachial index by the dorsalis pedis is 1.01. The left ankle brachial index by the dorsalis pedis is 1.05. Triphasic Doppler waveforms are noted at ankle level bilaterally. Arterial flow appears normal at ankle level bilaterally, and at digital level on the left. There is evidence mild arterial occlusive disease at digital level on the right. Venous studies completed 02/26/21 - Valvular competence appears intact within the proximal deep venous systems bilaterally. The great saphenous veins appear bilaterally patent and compressible segmentally. Sapheno-femoral junctions are bilaterally competent . Valvular competence appears to be intact segmentally within the great saphenous veins bilaterally. Small saphenous veins are patent and competent bilaterally. Today he denies any fever, chills, n/v. Progress of Wound: Right lateral ankle ulcer is stable. Not much improvement in the size of the ulcer. Objective Data Objective Data Vital Signs: Vital Signs Temp Pulse Resp BP 96.8 F L 78 16 123/52 H 04/16/21 13:42 04/16/21 13:42 04/16/21 13:42 04/16/21 13:42 Oxygen Delivery Method Room Air Weight: 308 lb 10.354 oz Body Mass Index (BMI) 26.3 Charges/Coding Procedures Integumentary 111xxx-113xx: 28203 Berna subq tissue 20 sq cm/< Physical Exam Const alert and oriented x3 HEENT normocephalic Resp normal respiratory effort Cardio regular rate Extremity normal capillary refill Extremity Narrative: +1 edema of bilateral lower extremities. General Extremity: edema Skin Wound Narrative: Right lateral ankle ulcer with thickened scar tissue surrounding the ulcer. Neuro CN's II-XII intact bilaterally Psych Appearance: grossly normal Debridement Note Debridement Note Wound debrided: Lateral ankle ulcer Laterality: Right Type of Debridement: Excisional debridement Depth: Down to and including healthy tissue and in the subcutaneous layer Percentage of wound debrided: 100 Instrument Used: - (Misonix ultrasound debridement instrument) Severity: Fat Layer Exposed Amount of bleeding with debridement: Mild Bleeding Controlled with: Pressure Patient tolerated procedure: Patient tolerated procedure well Debridement Free Text: Using the Misonix ultrasound debridement instrument, able to remove some of the extra thick scar tissue around the edges of the ulcer and had good bleeding in the center of the ulcer. Post-Debridement Measurements and Additional Note: Post-Debridement Measurements/Treatment - Nurse 1 - General Ulcer Assessment Start: 04/02/21 13:10 Freq: Status: Active Protocol: NADIA Activity Type Activity Date Activity User E-Sign Co-Sign Detail Recorded Client Recorded Date Recorded By Document 04/02/21 13:11 [facility] [id number] 04/02/21 13:17 [facility] Document 04/16/21 13:42 [facility] [id number] 04/16/21 13:49 [facility] 04/02/21 04/16/21 13:11 13:42 - Today's Visit Information Type of service Follow-up Visit Follow-up Visit (Physician/DENTAL HYGIENIST (Physician/DENTAL HYGIENIST ) ) Arrival Mode Wheelchair Ambulatory Transfer Assistance None None Accompanied by friend friend Patient Identification Verified (Name & Yes Yes ) Patient Requires Transmission-Based No No Precautions Height and Weight Body Mass Index (BMI) 26.3 26.3 BMI Classification Overweight Overweight Vital Signs Temperature (97.8 F-99.1 F) 96.7 F L 96.8 F L Temperature Source Temporal Temporal Pulse Rate (60-100) 77 78 Pulse Location Monitor Monitor Respiratory Rate (12-18) 16 16 Respiratory rate source Observation Observation Oxygen Delivery Method Room Air Room Air Blood Pressure (90/60-120/80) 120/54 L 123/52 H Blood Pressure Mean (mm Hg) 76 75 Source Monitor Monitor Position Sitting Sitting Blood Pressure Location Left Arm Left Arm History Since Last Visit- (Skip if this is Patient's initial visit) Have you changed medications since your No No last visit? Any new allergies or adverse reactions No No Had a fall/change in ADL's that may No No increase risk of falls Signs or symptoms of abuse and/or No No neglect since last visit Have you been in the hospital since your No No last visit? Has dressing in place as prescribed Yes Yes Has compression in place as prescribed Yes Yes Has offloadiing in place as prescribed N/A N/A Experienced any changes in pain level or No No management Left Footwear Regular Shoe Regular Shoe Right Footwear Regular Shoe Regular Shoe Pain Scale: 0-10 Numeric Is Patient Pain Free? Yes Yes WC - Nurse 1 - General Ulcer Measurement Start: 04/02/21 13:10 Freq: Status: Active Protocol: Activity Type Activity Date Activity User E-Sign Co-Sign Detail Recorded Client Recorded Date Recorded By Document 04/02/21 13:11 [facility] [id number] 04/02/21 13:17 [facility] Document 04/16/21 13:42 [facility] [id number] 04/16/21 13:49 [facility] 04/02/21 04/16/21 13:11 13:42 Wound Center Nurse 1 #5 right ankle -Combined with other wound No No -Current Size (cm) - Length 1.2 1.1 -Current Size (cm) - Width 0.9 1 -Current Size (cm) - Depth 0.3 0.4 -Total Square Cm 1.08 1.1 -Date of Last Picture (Recall this 04/02/21 04/16/21 field) -Photo Taken Yes No -Epithelialization None Present None Present -Tunneling No No -Undermining/Tunneling No No -Circular Undermining No No -Exudate Amt Medium Medium -Exudate Type Serosanguineous Serosanguineous -Wound Margin Distinct, Distinct, Outline Outline Attached Attached -Granulation Amt Small (1-33%) None Present (0 %) -Granulation Quality [place] -Slough/Fibrin Yes Yes -Necrosis Amt Large (67-100%) Large (67-100%) -Necrotic Tissue Type Eschar Adherent Slough -Texture (Cammie-wound Skin Appearance) Assessed, Assessed, Scarring Scarring -Moisture (Cammie-wound Skin Appearance) Assessed,Dry/ Assessed Scaly -Color (Cammie-wound Skin Appearance) Assessed Assessed -Temperature (Cammie-wound Skin No Abnormality No Abnormality Appearance) (Pt Warm) (Pt Warm) -Tenderness on Palpation (Cammie-wound No No Skin Appearance) -Ulcer Cleansing Rinsed/ Rinsed/ Irrigated with Irrigated with Saline Saline -Foul Odor after Cleansing No No -Anesthetic Used 5% Lidocaine 5% Lidocaine Gel Gel Lower Limb Edema Present Yes Right Calf (cm) 28 Right Ankle (cm) 23 WC - Nurse 2 - General Ulcer CM Notes Start: 04/02/21 13:10 Freq: Status: Active Protocol: Activity Type Activity Date Activity User E-Sign Co-Sign Detail Recorded Client Recorded Date Recorded By Document 04/02/21 13:31 [id number] 04/02/21 13:33 Document 04/16/21 13:56 [id number] 04/16/21 13:58 04/02/21 04/16/21 13:31 13:56 Wound Center Nurse 2 #5 right ankle -Time 13:31 13:57 -Correct Patient Yes Yes -Correct Side, Site, Position Yes Yes -Correct Procedure Yes Yes -Procedure Performed Yes Yes -Type of Procedure Debridement Debridement -Clinical Debridement Subcutaneous Subcutaneous -Tissue Removed Subcutaneous Subcutaneous -Post Debridement (cm) - Length 1.2 1.0 -Post Debridement (cm) - Width 1.0 0.9 -Post Debridement (cm) - Depth 0.3 0.2 -Total Square (Post) (cm) 1.20 0.90 -Area of Debridement (cm) - Length 1.2 1.0 -Area of Debridement (cm) - Width 1.0 0.9 -Total Square (Area) (cm) 1.20 0.90 -Tunneling No No -Undermining/Tunneling No No -Circular Undermining No No -Wound/Ulcer Outcome Not Healed Not Healed -Ulcer Cleansing Rinsed/ Rinsed/ Irrigated with Irrigated with Saline Saline -Foul Odor after Cleansing No No -Bioengineered Tissue No No -Bleeding Controlled with Pressure -Offloading No No -Treatment Response Procedure Procedure Tolerated Well Tolerated Well -Debridement - Subq, 1st 20sq cm Yes Yes Pain Scale: 0-10 Numeric Is Patient Pain Free? Yes Yes - Nurse 3 - General Ulcer D/C NN Start: 04/02/21 13:10 Freq: Status: Active Protocol: Activity Type Activity Date Activity User E-Sign Co-Sign Detail Recorded Client Recorded Date Recorded By Document 04/02/21 13:40 [id number] 04/02/21 13:40 Document 04/16/21 14:06 [facility] [id number] 04/16/21 14:07 [facility] 04/02/21 04/16/21 13:40 14:06 Wound Care Nurse 3 #5 right ankle -Ulcer Cleansing Rinsed/ Rinsed/ Irrigated with Irrigated with Saline Saline -Foul Odor after Cleansing No No -Primary Dressing Applied C Hydrogel ($), NonAdherent NonAdherent Contact Layer, Contact Layer Other -Other Dressing hydrogel -Primary Dressing Covered/Secured with Dry Gauze, Dry Gauze, Secured with Secured with Tape Tape Right -Stockings Yes -Other pts own stocking applied Treatment Response Procedure Tolerated Well Pain Scale: 0-10 Numeric Is Patient Pain Free? Yes Yes - Visit Discharge Discharge Condition Stable Stable Ambulatory Status Wheelchair Wheelchair Transportation Private Auto Private Auto Accompanied by friend Medication Reconcilliation completed & Yes provided to patient/care provider Clinical Summary of Care Provided Yes Assessment/Plan Assessment/Plan (1) Ulcer of right ankle: CODE(S): L97.319 - Non-pressure chronic ulcer of right ankle with unspecified severity (2) Edema of right lower extremity: CODE(S): R60.0 - Localized edema (3) Smoker: CODE(S): F17.200 - Nicotine dependence, unspecified, uncomplicated (4) Diabetes: CODE(S): E11.9 - Type 2 diabetes mellitus without complications (5) Diabetic ulcer of right ankle: CODE(S): E11.622 - Type 2 diabetes mellitus with other skin ulcer; L97.319 - Non-pressure chronic ulcer of right ankle with unspecified severity PLAN: Wound care - Right lateral hip remains healed. Right lateral ankle collagen hydrogel covered with adaptic and topped with gauze daily. He is using a 30-40 mmHg compression stocking. Recommend using a donut over ankle at night to prevent any pressure on right lateral ankle. His skin is very dry, encouraged him to use lotion at least once per day and to increase his water intake. Wound culture of the right lateral culture was obtained on 01/01/21 which was positive for MRSA and Corynebacterium striatum. Completed Doxycycline. Right ankle x-ray from 01/22/21 showed Soft tissue swelling around ankle. Arterial and venous studies done 02/26/21 with results discussed in HPI. Operative cultures from 09/14/20 showed E. coli in the bone and was negative or organisms. He was treated with Levaquin. Prealbumin from 09/15/20 was 18.1. Encourage nutritional supplementation with protein to help the healing process. Follow up 2 weeks.
== END 2021-04-16 23:59 ==
LOC: WC 13:30
PROVIDERS: PCP Student in an Organized Health Care Education/Training Program; Referring Provider Family Medicine; Visit Provider Nurse Practitioner Family
DX: E11.622 Type 2 diabetes mellitus with other skin ulcer (principal); L89.214 Pressure ulcer of right hip, stage 4; L97.312 Non-pressure chronic ulcer of right ankle with fat layer exposed; R60.0 Localized edema; F17.200 Nicotine dependence, unspecified, uncomplicated; Z86.16 Personal history of COVID-19
CPT/HCPCS: 11042

== ENCOUNTER 2021-05-14 13:30 | Outpatient (RCR) | payer MEDICARE, SELFPAY ==
[2021-04-17 00:27] VITALS: BP 123/52; PULSE 78; RESP 16; TEMP 36; BMI 26.3
[2021-04-30 13:24] VITALS: BP 122/78; PULSE 67; TEMP 36.3; BMI 26.3
--- NOTE | 2021-04-30 14:04 | PCM.WC.PN ---
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 History of Wound: Surgery 09/14/20 - Excision right trochanteric pressure sore, Stage IV, with partial ostectomy for osteomyelitis. Wound care - Right lateral ankle collagen hydrogel covered with adaptic and topped with gauze daily. Right lateral hip remains healed. He is using a zip up compression sleeve to bilateral lower extremity. Wound culture of the right lateral culture was obtained on 01/01/21 which was positive for MRSA and Corynebacterium striatum. He was started on Doxycycline. Operative cultures - Bone was positive for E. coli and Soft Tissue was negative. He completed Levaquin. Pathology - positive for acute and chronic osteomyelitis. Prealbumin from 09/15/20 was 18.1. HgbA1c from 09/14/[address] on 07/31/2020 did not show evidence of osteomyelitis. Ulcerating lesion in the lateral posterior aspect of the right buttock with increased markings in the subcutaneous fat. This abuts the underlying gluteus muscle. Right lateral ankle ulcer has slowed down healing. Arterial studies done 02/26/21 - The right ankle brachial index by the dorsalis pedis is 1.01. The left ankle brachial index by the dorsalis pedis is 1.05. Triphasic Doppler waveforms are noted at ankle level bilaterally. Arterial flow appears normal at ankle level bilaterally, and at digital level on the left. There is evidence mild arterial occlusive disease at digital level on the right. Venous studies completed 02/26/21 - Valvular competence appears intact within the proximal deep venous systems bilaterally. The great saphenous veins appear bilaterally patent and compressible segmentally. Sapheno-femoral junctions are bilaterally competent . Valvular competence appears to be intact segmentally within the great saphenous veins bilaterally. Small saphenous veins are patent and competent bilaterally. Today he denies any fever, chills, n/v. Progress of Wound: Right lateral ankle ulcer is mildly improved, base of the ulcer is pink and bleeds well with debridement. Objective Data Objective Data Vital Signs: Vital Signs Temp Pulse Resp BP 97.4 F L 67 16 122/78 H 04/30/21 13:24 04/30/21 13:24 04/17/21 00:27 04/30/21 13:24 Weight: 308 lb 10.354 oz Body Mass Index (BMI) 26.3 Charges/Coding Procedures Integumentary 111xxx-113xx: 67240 Berna subq tissue 20 sq cm/< Physical Exam Const alert and oriented x3 HEENT normocephalic Resp normal respiratory effort Cardio regular rate Extremity normal capillary refill Extremity Narrative: +1 edema lower extremity Skin Wound Narrative: Right lateral ankle ulcer beefy pink, bleeds well with debridement. Appears smaller in size. Neuro CN's II-XII intact bilaterally Psych Appearance: grossly normal Debridement Note Debridement Note Wound debrided: Lateral ankle ulcer Laterality: Right Type of Debridement: Excisional debridement Anesthesia Used: 5% Lidocaine Gel Depth: Down to and including healthy tissue and in the subcutaneous layer Percentage of wound debrided: 100 Instrument Used: 3mm curette Tissue Removed: Subcutaneous tissue and slough Severity: Fat Layer Exposed Amount of bleeding with debridement: Mild Bleeding Controlled with: Pressure and Compression and gauze Patient tolerated procedure: Patient tolerated procedure well Post-Debridement Measurements and Additional Note: Post-Debridement Measurements/Treatment - Nurse 1 - General Ulcer Assessment Start: 04/30/21 13:24 Freq: Status: Active Protocol: NADIA Activity Type Activity Date Activity User E-Sign Co-Sign Detail Recorded Client Recorded Date Recorded By Document 04/30/21 13:24 HARDIK [id number] 04/30/21 13:25 HARDIK 04/30/21 13:24 - Today's Visit Information Type of service Follow-up Visit (Physician/[employer] ) Arrival Mode Wheelchair Patient Identification Verified (Name & Yes ) Height and Weight Body Mass Index (BMI) 26.3 BMI Classification Overweight Vital Signs Temperature (97.8 F-99.1 F) 97.4 F L Temperature Source Temporal Pulse Rate (60-100) 67 Pulse Location Monitor Blood Pressure (90/60-120/80) 122/78 H Blood Pressure Mean (mm Hg) 92 Source Monitor Position Sitting Blood Pressure Location Right Arm History Since Last Visit- (Skip if this is Patient's initial visit) Have you changed medications since your No last visit? Any new allergies or adverse reactions No Had a fall/change in ADL's that may No increase risk of falls Signs or symptoms of abuse and/or No neglect since last visit Have you been in the hospital since your No last visit? Has dressing in place as prescribed Yes Has compression in place as prescribed Yes Has offloadiing in place as prescribed N/A Experienced any changes in pain level or No management Left Footwear Regular Shoe Right Footwear Regular Shoe Pain Scale: 0-10 Numeric Is Patient Pain Free? Yes - Nurse 1 - General Ulcer Measurement Start: 04/30/21 13:24 Freq: Status: Active Protocol: Activity Type Activity Date Activity User E-Sign Co-Sign Detail Recorded Client Recorded Date Recorded By Document 04/30/21 13:24 HARDIK [id number] 04/30/21 13:25 KR 04/30/21 13:24 Wound Center Nurse 1 #5 right ankle -Current Size (cm) - Length 1 -Current Size (cm) - Width 0.8 -Current Size (cm) - Depth 0.2 -Total Square Cm 0.8 -Exudate Amt Small -Exudate Type Yellow/Green -Wound Margin Distinct, Outline Attached -Granulation Amt Small (1-33%) -Granulation Quality Red -Necrosis Amt Medium (34-66%) -Necrotic Tissue Type Adherent Slough -Texture (Cammie-wound Skin Appearance) Assessed, Scarring -Moisture (Cammie-wound Skin Appearance) Assessed,Dry/ Scaly -Color (Cammie-wound Skin Appearance) No Abnormality, Assessed -Temperature (Cammie-wound Skin No Abnormality Appearance) (Pt Warm) -Tenderness on Palpation (Cammie-wound No Skin Appearance) -Ulcer Cleansing Rinsed/ Irrigated with Saline -Foul Odor after Cleansing No -Anesthetic Used 5% Lidocaine Gel WC - Nurse 3 - General Ulcer D/C NN Start: 04/30/21 13:24 Freq: Status: Active Protocol: Activity Type Activity Date Activity User E-Sign Co-Sign Detail Recorded Client Recorded Date Recorded By Document 04/30/21 13:49 HARDIK [id number] 04/30/21 13:51 KR 04/30/21 13:49 Wound Care Nurse 3 -Ulcer Cleansing Rinsed/ Irrigated with Saline -Primary Dressing Applied C Hydrogel ($), NonAdherent Contact Layer -Primary Dressing Covered/Secured with Dry Gauze, Secured with Tape Pain Scale: 0-10 Numeric Is Patient Pain Free? Yes WC - Visit Discharge Discharge Condition Stable Ambulatory Status Wheelchair Transportation Private Auto Assessment/Plan Assessment/Plan (1) Ulcer of right ankle: CODE(S): L97.319 - Non-pressure chronic ulcer of right ankle with unspecified severity (2) Edema of right lower extremity: CODE(S): R60.0 - Localized edema (3) Smoker: CODE(S): F17.200 - Nicotine dependence, unspecified, uncomplicated (4) Diabetic ulcer of right ankle: CODE(S): E11.622 - Type 2 diabetes mellitus with other skin ulcer; L97.319 - Non-pressure chronic ulcer of right ankle with unspecified severity PLAN: Wound care - Right lateral hip remains healed. Right lateral ankle collagen hydrogel covered with adaptic and topped with gauze daily. He is using a 30-40 mmHg compression stocking. Recommend using a donut over ankle at night to prevent any pressure on right lateral ankle. His skin is very dry, encouraged him to use lotion at least once per day and to increase his water intake. Wound culture of the right lateral culture was obtained on 01/01/21 which was positive for MRSA and Corynebacterium striatum. Completed Doxycycline. Right ankle x-ray from 01/22/21 showed Soft tissue swelling around ankle. Arterial and venous studies done 02/26/21 with results discussed in HPI. Operative cultures from 09/14/20 showed E. coli in the bone and was negative or organisms. He was treated with Levaquin. Prealbumin from 09/15/20 was 18.1. Encourage nutritional supplementation with protein to help the healing process. Follow up 2 weeks.
[2021-05-14 13:37] VITALS: BP 133/86; PULSE 85; TEMP 35.9; BMI 26.3
--- NOTE | 2021-05-14 15:19 | PCM.WC.PN ---
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 History of Wound: Surgery 09/14/20 - Excision right trochanteric pressure sore, Stage IV, with partial ostectomy for osteomyelitis. Wound care - Right lateral ankle collagen hydrogel covered with adaptic and topped with gauze daily. Right lateral hip remains healed. He is using a zip up compression sleeve to bilateral lower extremities for compression. Wound culture of the right lateral culture was obtained on 01/01/21 which was positive for MRSA and Corynebacterium striatum. He was started on Doxycycline. Operative cultures - Bone was positive for E. coli and Soft Tissue was negative. He completed Levaquin. Pathology - positive for acute and chronic osteomyelitis. Prealbumin from 09/15/20 was 18.1. HgbA1c from 09/14/[address] on 07/31/2020 did not show evidence of osteomyelitis. Ulcerating lesion in the lateral posterior aspect of the right buttock with increased markings in the subcutaneous fat. This abuts the underlying gluteus muscle. Right lateral ankle ulcer has slowed down healing. Arterial studies done 02/26/21 - The right ankle brachial index by the dorsalis pedis is 1.01. The left ankle brachial index by the dorsalis pedis is 1.05. Triphasic Doppler waveforms are noted at ankle level bilaterally. Arterial flow appears normal at ankle level bilaterally, and at digital level on the left. There is evidence mild arterial occlusive disease at digital level on the right. Venous studies completed 02/26/21 - Valvular competence appears intact within the proximal deep venous systems bilaterally. The great saphenous veins appear bilaterally patent and compressible segmentally. Sapheno-femoral junctions are bilaterally competent . Valvular competence appears to be intact segmentally within the great saphenous veins bilaterally. Small saphenous veins are patent and competent bilaterally. Today he denies any fever, chills, n/v. Progress of Wound: Right lateral ankle ulcer is mildly improved, base of the ulcer is pink and bleeds well with debridement. Objective Data Objective Data Vital Signs: Vital Signs Temp Pulse Resp BP 96.7 F L 85 16 133/86 H 05/14/21 13:37 05/14/21 13:37 04/17/21 00:27 05/14/21 13:37 Weight: 308 lb 10.354 oz Body Mass Index (BMI) 26.3 Charges/Coding Procedures Integumentary 111xxx-113xx: 23328 Berna subq tissue 20 sq cm/< Physical Exam Const alert and oriented x3 General Appearance: cooperative HEENT normocephalic Head and Scalp: atraumatic Resp normal respiratory effort Cardio regular rate Extremity normal capillary refill Extremity Narrative: +1 non pitting edema Skin Wound Narrative: Right lateral ankle with pink base. Mild thickened tissue surrounding the ulcer. Neuro CN's II-XII intact bilaterally Psych Appearance: grossly normal Debridement Note Debridement Note Wound debrided: Lateral ankle ulcer Laterality: Right Type of Debridement: Excisional debridement Anesthesia Used: 5% Lidocaine Gel Depth: Down to and including healthy tissue and in the subcutaneous layer Percentage of wound debrided: 100 Instrument Used: 5mm curette Tissue Removed: Subcutaneous tissue and slough Severity: Fat Layer Exposed Amount of bleeding with debridement: Mild Bleeding Controlled with: Compression and gauze Patient tolerated procedure: Patient tolerated procedure well Post-Debridement Measurements and Additional Note: Post-Debridement Measurements/Treatment - Nurse 1 - General Ulcer Assessment Start: 04/30/21 13:24 Freq: Status: Active Protocol: DELVIS.FRANCISCA Activity Type Activity Date Activity User E-Sign Co-Sign Detail Recorded Client Recorded Date Recorded By Document 04/30/21 13:24 [id number] 04/30/21 13:25 Document 05/14/21 13:37 [id number] 05/14/21 13:40 KR 04/30/21 05/14/21 13:24 13:37 - Today's Visit Information Type of service Follow-up Visit Follow-up Visit (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 (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 ) ) Arrival Mode Wheelchair Wheelchair Patient Identification Verified (Name & Yes Yes ) Height and Weight Body Mass Index (BMI) 26.3 26.3 BMI Classification Overweight Overweight Vital Signs Temperature (97.8 F-99.1 F) 97.4 F L 96.7 F L Temperature Source Temporal Temporal Pulse Rate (60-100) 67 85 Pulse Location Monitor Monitor Blood Pressure (90/60-120/80) 122/78 H 133/86 H Blood Pressure Mean (mm Hg) 92 101 Source Monitor Position Sitting Blood Pressure Location Right Arm History Since Last Visit- (Skip if this is Patient's initial visit) Have you changed medications since your No No last visit? Any new allergies or adverse reactions No No Had a fall/change in ADL's that may No No increase risk of falls Signs or symptoms of abuse and/or No No neglect since last visit Have you been in the hospital since your No No last visit? Has dressing in place as prescribed Yes Yes Has compression in place as prescribed Yes Yes Has offloadiing in place as prescribed N/A N/A Experienced any changes in pain level or No No management Left Footwear Regular Shoe Regular Shoe Right Footwear Regular Shoe Regular Shoe Pain Scale: 0-10 Numeric Is Patient Pain Free? Yes Yes WC - Nurse 1 - General Ulcer Measurement Start: 04/30/21 13:24 Freq: Status: Active Protocol: Activity Type Activity Date Activity User E-Sign Co-Sign Detail Recorded Client Recorded Date Recorded By Document 04/30/21 13:24 KR [id number] 04/30/21 13:25 KR Document 05/14/21 13:37 KR [id number] 05/14/21 13:40 KR 04/30/21 05/14/21 13:24 13:37 Wound Center Nurse 1 #5 right ankle -Current Size (cm) - Length 1 0.8 -Current Size (cm) - Width 0.8 0.7 -Current Size (cm) - Depth 0.2 0.3 -Total Square Cm 0.8 0.56 -Exudate Amt Small Small -Exudate Type Yellow/Green Serosanguineous -Wound Margin Distinct, Distinct, Outline Outline Attached Attached -Granulation Amt Small (1-33%) Medium (34-66%) -Granulation Quality Red [place] -Necrosis Amt Medium (34-66%) Small (1-33%) -Necrotic Tissue Type Adherent Slough Adherent Slough -Texture (Cammie-wound Skin Appearance) Assessed, No Abnormality, Scarring Scarring -Moisture (Cammie-wound Skin Appearance) Assessed,Dry/ No Abnormality, Scaly Assessed -Color (Cammie-wound Skin Appearance) No Abnormality, No Abnormality, Assessed Assessed -Temperature (Cammie-wound Skin No Abnormality No Abnormality Appearance) (Pt Warm) (Pt Warm) -Tenderness on Palpation (Cammie-wound No No Skin Appearance) -Ulcer Cleansing Rinsed/ Rinsed/ Irrigated with Irrigated with Saline Saline -Foul Odor after Cleansing No No -Anesthetic Used 5% Lidocaine 5% Lidocaine Gel Gel - Nurse 2 - General Ulcer CM Notes Start: 04/30/21 13:24 Freq: Status: Active Protocol: Activity Type Activity Date Activity User E-Sign Co-Sign Detail Recorded Client Recorded Date Recorded By Document 04/30/21 14:07 PL [id number] 04/30/21 14:08 PL Document 05/14/21 13:44 [id number] 05/14/21 13:46 JF 04/30/21 05/14/21 14:07 13:44 Wound Center Nurse 2 #5 right ankle -Time 13:40 13:45 -Correct Patient Yes Yes -Correct Side, Site, Position Yes Yes -Correct Procedure Yes Yes -Procedure Performed Yes Yes -Type of Procedure Debridement Debridement -Clinical Debridement Subcutaneous Subcutaneous -Tissue Removed Dermis Subcutaneous -Post Debridement (cm) - Length 1.3 1.0 -Post Debridement (cm) - Width 1.0 0.9 -Post Debridement (cm) - Depth 0.1 0.3 -Total Square (Post) (cm) 1.30 0.90 -Area of Debridement (cm) - Length 1.3 1.0 -Area of Debridement (cm) - Width 1.0 0.9 -Total Square (Area) (cm) 1.30 0.90 -Tunneling No No -Undermining/Tunneling No No -Circular Undermining No No -Wound/Ulcer Outcome Not Healed Not Healed -Ulcer Cleansing Rinsed/ Rinsed/ Irrigated with Irrigated with Saline Saline -Foul Odor after Cleansing No No -Bioengineered Tissue No No -Bleeding Controlled with Pressure Pressure -Treatment Response Procedure Procedure Tolerated Well Tolerated Well -Offloading No -Debridement - Subq, 1st 20sq cm Yes Yes Pain Scale: 0-10 Numeric Is Patient Pain Free? Yes Yes - Nurse 3 - General Ulcer D/C NN Start: 04/30/21 13:24 Freq: Status: Active Protocol: Activity Type Activity Date Activity User E-Sign Co-Sign Detail Recorded Client Recorded Date Recorded By Document 04/30/21 13:49 KR [id number] 04/30/21 13:51 KR Document 05/14/21 13:56 BMF [id number] 05/14/21 13:57 [facility] 04/30/21 05/14/21 13:49 13:56 Wound Care Nurse 3 #5 right ankle -Ulcer Cleansing Rinsed/ Rinsed/ Irrigated with Irrigated with Saline Saline -Foul Odor after Cleansing No -Primary Dressing Applied C Hydrogel ($), C Hydrogel ($), NonAdherent NonAdherent Contact Layer Contact Layer -Primary Dressing Covered/Secured with Dry Gauze, Dry Gauze, Secured with Secured with Tape Tape -Other Covering DRSG PER KR FRENCH PASTRY COOK RLE -Other OWN COMPRESSION STOCKING APPLIED Treatment Response Procedure Tolerated Well Pain Scale: 0-10 Numeric Is Patient Pain Free? Yes Yes WC - Visit Discharge Discharge Condition Stable Stable Ambulatory Status Wheelchair Wheelchair Transportation Private Auto Private Auto Accompanied by FRIEND Assessment/Plan Assessment/Plan (1) Diabetic ulcer of right ankle: CODE(S): E11.622 - Type 2 diabetes mellitus with other skin ulcer; L97.319 - Non-pressure chronic ulcer of right ankle with unspecified severity (2) Ulcer of right ankle: CODE(S): L97.319 - Non-pressure chronic ulcer of right ankle with unspecified severity (3) Edema of right lower extremity: CODE(S): R60.0 - Localized edema (4) Diabetes: CODE(S): E11.9 - Type 2 diabetes mellitus without complications (5) Smoker: CODE(S): F17.200 - Nicotine dependence, unspecified, uncomplicated PLAN: Wound care - Right lateral hip remains healed. Right lateral ankle collagen hydrogel covered with adaptic and topped with gauze daily. He is using a 30-40 mmHg compression stocking. Recommend using a donut over ankle at night to prevent any pressure on right lateral ankle. His skin is very dry, encouraged him to use lotion at least once per day and to increase his water intake. Wound culture of the right lateral culture was obtained on 01/01/21 which was positive for MRSA and Corynebacterium striatum. Completed Doxycycline. Right ankle x-ray from 01/22/21 showed Soft tissue swelling around ankle. Arterial and venous studies done 02/26/21 with results discussed in HPI. Operative cultures from 09/14/20 showed E. coli in the bone and was negative or organisms. He was treated with Levaquin. Prealbumin from 09/15/20 was 18.1. Encourage nutritional supplementation with protein to help the healing process. Follow up 3 weeks.
== END 2021-05-17 23:59 | disposition home or self-care (01) ==
LOC: WC 13:30
PROVIDERS: PCP Student in an Organized Health Care Education/Training Program; Referring Provider Family Medicine; Visit Provider Nurse Practitioner Family
DX: E11.622 Type 2 diabetes mellitus with other skin ulcer (principal); L97.312 Non-pressure chronic ulcer of right ankle with fat layer exposed; R60.0 Localized edema; F17.200 Nicotine dependence, unspecified, uncomplicated; Z86.14 Personal history of Methicillin resistant Staphylococcus aureus infection
CPT/HCPCS: 11042

== ENCOUNTER 2021-06-04 13:11 | Outpatient (RCR) | payer MEDICARE, SELFPAY ==
[2021-05-18 00:29] VITALS: BP 133/86; PULSE 85; RESP 16; TEMP 35.9; BMI 26.3
[2021-06-04 13:05] VITALS: BP 111/47; PULSE 79; RESP 16; TEMP 36; BMI 26.3
--- NOTE | 2021-06-04 14:06 | PCM.WC.PN ---
History of Present Illness Date of Service: 06/04/21 Chief Complaint: Nonhealing diabetic ulcer right lateral ankle. History of Wound: Surgery 09/14/20 - Excision right trochanteric pressure sore, Stage IV, with partial ostectomy for osteomyelitis. Wound care - Right lateral ankle collagen hydrogel covered with adaptic and topped with gauze daily. Right lateral hip remains healed. He is using a zip up compression sleeve to bilateral lower extremity. Wound culture of the right lateral culture was obtained on 01/01/21 which was positive for MRSA and Corynebacterium striatum. He was started on Doxycycline. Operative cultures - Bone was positive for E. coli and Soft Tissue was negative. He completed Levaquin. Pathology - positive for acute and chronic osteomyelitis. Prealbumin from 09/15/20 was 18.1. HgbA1c from 09/14/[address] on 07/31/2020 did not show evidence of osteomyelitis. Ulcerating lesion in the lateral posterior aspect of the right buttock with increased markings in the subcutaneous fat. This abuts the underlying gluteus muscle. Right lateral ankle ulcer has slowed down healing. Arterial studies done 02/26/21 - The right ankle brachial index by the dorsalis pedis is 1.01. The left ankle brachial index by the dorsalis pedis is 1.05. Triphasic Doppler waveforms are noted at ankle level bilaterally. Arterial flow appears normal at ankle level bilaterally, and at digital level on the left. There is evidence mild arterial occlusive disease at digital level on the right. Venous studies completed 02/26/21 - Valvular competence appears intact within the proximal deep venous systems bilaterally. The great saphenous veins appear bilaterally patent and compressible segmentally. Sapheno-femoral junctions are bilaterally competent . Valvular competence appears to be intact segmentally within the great saphenous veins bilaterally. Small saphenous veins are patent and competent bilaterally. Today he denies any fever, chills, n/v. Progress of Wound: Right lateral ankle is stable. There is increased biofilm in the base of the ulcer. Objective Data Objective Data Vital Signs: Vital Signs Temp Pulse Resp BP 96.8 F L 79 16 111/47 L 06/04/21 13:05 06/04/21 13:05 06/04/21 13:05 06/04/21 13:05 Oxygen Delivery Method Room Air Weight: 308 lb 10.354 oz Body Mass Index (BMI) 26.3 Charges/Coding Procedures Integumentary 111xxx-113xx: 10810 Berna subq tissue 20 sq cm/< Physical Exam Const alert and oriented x3 HEENT normocephalic Resp normal respiratory effort Cardio regular rate Extremity normal capillary refill General Extremity: edema bilateral lower extremity Details: mild Skin Skin Narrative: He has a bruise on his right lateral small toe. It is approx 6mm diameter. It is smooth, flat, non painful. The skin is intact and the toe has capillary refill <3 seconds. Wound Narrative: Right lateral ankle ulcer has increased non viable tissue in the base of the ulcer. It does not seem to showing a lot of improvement. Neuro CN's II-XII intact bilaterally Psych Appearance: grossly normal Debridement Note Debridement Note Wound debrided: Lateral ankle ulcer Laterality: Right Wound Grade/Stage: stage IV Type of Debridement: Excisional debridement Anesthesia Used: 5% Lidocaine Gel Depth: Down to and including healthy tissue and in the subcutaneous layer Percentage of wound debrided: 100 Instrument Used: - ([employer] aquasonic debrider) Tissue Removed: Nonviable tissue and slough Severity: Fat Layer Exposed Amount of bleeding with debridement: Mild Bleeding Controlled with: Pressure Patient tolerated procedure: Patient tolerated procedure well Post-Debridement Measurements and Additional Note: Post-Debridement Measurements/Treatment - Nurse 1 - General Ulcer Assessment Start: 06/04/21 13:05 Freq: Status: Active Protocol: DELVIS.FRANCISCA Activity Type Activity Date Activity User E-Sign Co-Sign Detail Recorded Client Recorded Date Recorded By Document 06/04/21 13:05 [id number] 06/04/21 13:07 HARDIK 06/04/21 13:05 - Today's Visit Information Type of service Follow-up Visit (Physician/AUDITING CODER ) Arrival Mode Wheelchair Transfer Assistance Other Transfer Assist (Other) stand by Accompanied by friend Patient Identification Verified (Name & Yes ) Patient Requires Transmission-Based No Precautions Height and Weight Body Mass Index (BMI) 26.3 BMI Classification Overweight Vital Signs Temperature (97.8 F-99.1 F) 96.8 F L Temperature Source Temporal Pulse Rate (60-100) 79 Pulse Location Monitor Respiratory Rate (12-18) 16 Respiratory rate source Observation Oxygen Delivery Method Room Air Blood Pressure (90/60-120/80) 111/47 L Blood Pressure Mean (mm Hg) 68 Source Monitor Position Sitting Blood Pressure Location Left Arm History Since Last Visit- (Skip if this is Patient's initial visit) Have you changed medications since your No last visit? Any new allergies or adverse reactions No Had a fall/change in ADL's that may No increase risk of falls Signs or symptoms of abuse and/or No neglect since last visit Have you been in the hospital since your No last visit? Has dressing in place as prescribed Yes Has compression in place as prescribed Yes Has offloadiing in place as prescribed N/A Experienced any changes in pain level or No management Left Footwear Regular Shoe Right Footwear Regular Shoe Pain Scale: 0-10 Numeric Is Patient Pain Free? Yes DELVIS - Nurse 1 - General Ulcer Measurement Start: 06/04/21 13:05 Freq: Status: Active Protocol: Activity Type Activity Date Activity User E-Sign Co-Sign Detail Recorded Client Recorded Date Recorded By Document 06/04/21 13:05 HARDIK [id number] 06/04/21 13:07 HARDIK 06/04/21 13:05 Wound Center Nurse 1 #5 right ankle -Combined with other wound No -Current Size (cm) - Length 0.9 -Current Size (cm) - Width 0.6 -Current Size (cm) - Depth 0.2 -Total Square Cm 0.54 -Date of Last Picture (Recall this 06/04/21 field) -Photo Taken Yes -Epithelialization None Present -Tunneling No -Undermining/Tunneling No -Circular Undermining No -Exudate Amt Small -Exudate Type Serosanguineous -Wound Margin Distinct, Outline Attached -Granulation Amt Small (1-33%) -Granulation Quality Az[place] -Slough/Fibrin Yes -Necrosis Amt Large (67-100%) -Necrotic Tissue Type Adherent Slough -Texture (Cammie-wound Skin Appearance) Assessed, Scarring -Moisture (Cammie-wound Skin Appearance) Assessed -Color (Cammie-wound Skin Appearance) Assessed, Erythema -Temperature (Cammie-wound Skin No Abnormality Appearance) (Pt Warm) -Tenderness on Palpation (Cammie-wound No Skin Appearance) -Ulcer Cleansing Rinsed/ Irrigated with Saline -Foul Odor after Cleansing No -Anesthetic Used 5% Lidocaine Gel Lower Limb Edema Present Yes Right Calf (cm) 32.1 Right Ankle (cm) 26.9 WC - Nurse 2 - General Ulcer CM Notes Start: 06/04/21 13:05 Freq: Status: Active Protocol: Activity Type Activity Date Activity User E-Sign Co-Sign Detail Recorded Client Recorded Date Recorded By Document 06/04/21 13:18 VIELKA [id number] 06/04/21 13:22 VIELKA 06/04/21 13:18 Wound Center Nurse 2 #5 right ankle -Time 13:19 -Correct Patient Yes -Correct Side, Site, Position Yes -Correct Procedure Yes -Procedure Performed Yes -Type of Procedure Debridement -Clinical Debridement Subcutaneous -Tissue Removed Subcutaneous -Post Debridement (cm) - Length 0.9 -Post Debridement (cm) - Width 0.7 -Post Debridement (cm) - Depth 0.3 -Total Square (Post) (cm) 0.63 -Area of Debridement (cm) - Length 0.9 -Area of Debridement (cm) - Width 0.7 -Total Square (Area) (cm) 0.63 -Tunneling No -Undermining/Tunneling No -Circular Undermining No -Wound/Ulcer Outcome Not Healed -Ulcer Cleansing Rinsed/ Irrigated with Saline -Foul Odor after Cleansing No -Bioengineered Tissue No -Bleeding Controlled with Pressure -Treatment Response Procedure Tolerated Well -Offloading No -Debridement - Subq, 1st 20sq cm Yes Pain Scale: 0-10 Numeric Is Patient Pain Free? Yes - Nurse 3 - General Ulcer D/C NN Start: 06/04/21 13:05 Freq: Status: Active Protocol: Activity Type Activity Date Activity User E-Sign Co-Sign Detail Recorded Client Recorded Date Recorded By Document 06/04/21 13:32 HARDIK [id number] 06/04/21 13:33 HARDIK 06/04/21 13:32 Wound Care Nurse 3 #5 right ankle -Ulcer Cleansing Rinsed/ Irrigated with Saline -Primary Dressing Applied C Hydrogel ($), NonAdherent Contact Layer -Primary Dressing Covered/Secured with Dry Gauze, Secured with Tape Pain Scale: 0-10 Numeric Is Patient Pain Free? Yes WC - Visit Discharge Discharge Condition Stable Ambulatory Status Wheelchair Transportation Private Auto Assessment/Plan Assessment/Plan (1) Diabetic ulcer of right ankle: CODE(S): E11.622 - Type 2 diabetes mellitus with other skin ulcer; L97.319 - Non-pressure chronic ulcer of right ankle with unspecified severity (2) Ulcer of right ankle: CODE(S): L97.319 - Non-pressure chronic ulcer of right ankle with unspecified severity (3) Edema of right lower extremity: CODE(S): R60.0 - Localized edema (4) Smoker: CODE(S): F17.200 - Nicotine dependence, unspecified, uncomplicated (5) Diabetes: CODE(S): E11.9 - Type 2 diabetes mellitus without complications PLAN: For his debridement today we used the [employer] sonic debrider. It helped to decrease some of the non viable tissue in the base of the ulcer and the it helped make the edges bleed. Patient tolerated this quite well. Wound care - Right lateral hip remains healed. Right lateral ankle collagen hydrogel covered with adaptic and topped with gauze daily. He is using a 30-40 mmHg compression stocking. Will keep an eye on the new bruising on his right lateral small toe. Unsure of the cause. Instructed both the patient and his grandson to monitor that and make sure his compression stockings are not rubbing in that area. Recommend using a donut over ankle at night to prevent any pressure on right lateral ankle. Wound culture of the right lateral culture was obtained on 01/01/21 which was positive for MRSA and Corynebacterium striatum. Completed Doxycycline. Right ankle x-ray from 01/22/21 showed Soft tissue swelling around ankle. Arterial and venous studies done 02/26/21 with results discussed in HPI. Operative cultures from 09/14/20 showed E. coli in the bone and was negative or organisms. He was treated with Levaquin. Prealbumin from 09/15/20 was 18.1. Encourage nutritional supplementation with protein to help the healing process. Follow up 3 weeks. Instructed to call or come in sooner if develop any concerns.
== END 2021-06-16 23:59 | disposition home or self-care (01) ==
LOC: WC 13:11
PROVIDERS: PCP Student in an Organized Health Care Education/Training Program; Referring Provider Family Medicine; Visit Provider Nurse Practitioner Family
DX: E11.622 Type 2 diabetes mellitus with other skin ulcer (principal); L97.312 Non-pressure chronic ulcer of right ankle with fat layer exposed; F17.200 Nicotine dependence, unspecified, uncomplicated; R60.0 Localized edema
CPT/HCPCS: 11042

== ENCOUNTER 2021-07-09 13:00 | Outpatient (RCR) | payer MEDICARE, SELFPAY ==
[2021-06-17 00:28] VITALS: BP 111/47; PULSE 79; RESP 16; TEMP 36; BMI 26.3
[2021-06-25 13:16] VITALS: BP 122/51; PULSE 74; RESP 16; TEMP 35.8; BMI 26.3
--- NOTE | 2021-06-25 13:52 | PCM.WC.PN ---
History of Present Illness Date of Service: 06/25/21 Chief Complaint: Nonhealing diabetic ulcer right lateral ankle. History of Wound: Surgery 09/14/20 - Excision right trochanteric pressure sore, Stage IV, with partial ostectomy for osteomyelitis. Wound care - Right lateral ankle collagen hydrogel covered with adaptic and topped with gauze daily. Right lateral hip remains healed. He is using a zip up compression sleeve to bilateral lower extremity. Wound culture of the right lateral culture was obtained on 01/01/21 which was positive for MRSA and Corynebacterium striatum. He was started on Doxycycline. Operative cultures - Bone was positive for E. coli and Soft Tissue was negative. He completed Levaquin. Pathology - positive for acute and chronic osteomyelitis. Prealbumin from 09/15/20 was 18.1. HgbA1c from 09/14/[address] on 07/31/2020 did not show evidence of osteomyelitis. Ulcerating lesion in the lateral posterior aspect of the right buttock with increased markings in the subcutaneous fat. This abuts the underlying gluteus muscle. Right lateral ankle ulcer has slowed down healing. Arterial studies done 02/26/21 - The right ankle brachial index by the dorsalis pedis is 1.01. The left ankle brachial index by the dorsalis pedis is 1.05. Triphasic Doppler waveforms are noted at ankle level bilaterally. Arterial flow appears normal at ankle level bilaterally, and at digital level on the left. There is evidence mild arterial occlusive disease at digital level on the right. Venous studies completed 02/26/21 - Valvular competence appears intact within the proximal deep venous systems bilaterally. The great saphenous veins appear bilaterally patent and compressible segmentally. Sapheno-femoral junctions are bilaterally competent . Valvular competence appears to be intact segmentally within the great saphenous veins bilaterally. Small saphenous veins are patent and competent bilaterally. Today he denies any fever, chills, n/v. Progress of Wound: Right lateral ankle ulcer is beefy pink. It still has edges that curl inwards. The right lateral toe bruise is healing well, there is no opening on that area. Objective Data Objective Data Vital Signs: Vital Signs Temp Pulse Resp BP 96.4 F L 74 16 122/51 H 06/25/21 13:16 06/25/21 13:16 06/25/21 13:16 06/25/21 13:16 Oxygen Delivery Method Room Air Weight: 308 lb 10.354 oz Body Mass Index (BMI) 26.3 Charges/Coding Procedures Integumentary 111xxx-113xx: 43493 Berna subq tissue 20 sq cm/< Physical Exam Const alert General Appearance: cooperative HEENT normocephalic Resp normal respiratory effort Cardio regular rate Extremity no calf tenderness Extremity Narrative: +1 edema of lower legs/ankles/feet Skin Wound Narrative: Right lateral ankle ulcer base is beefy pink, the edges still are curving inwards. Right lateral toe bruising is resolved and not opened. Dry scab removed from this area and the skin is intact. Neuro Sensorium / Orientation: awake and alert Debridement Note Debridement Note Wound debrided: lateral ankle ulcer Laterality: Right Type of Debridement: Excisional debridement Anesthesia Used: 5% Lidocaine Gel Depth: Down to and including healthy tissue and in the subcutaneous layer Percentage of wound debrided: 100 Instrument Used: 3mm curette Tissue Removed: Nonviable tissue and slough Severity: Fat Layer Exposed Amount of bleeding with debridement: Mild Bleeding Controlled with: Pressure and Compression and gauze Patient tolerated procedure: Patient tolerated procedure well Post-Debridement Measurements and Additional Note: Post-Debridement Measurements/Treatment - Nurse 1 - General Ulcer Assessment Start: 06/25/21 13:16 Freq: Status: Active Protocol: NADIA Activity Type Activity Date Activity User E-Sign Co-Sign Detail Recorded Client Recorded Date Recorded By Document 06/25/21 13:16 [facility] [id number] 06/25/21 13:20 [facility] 06/25/21 13:16 - Today's Visit Information Type of service Follow-up Visit (Physician/[employer] DEAN ) Arrival Mode Ambulatory Transfer Assistance None Accompanied by FRIEND Patient Identification Verified (Name & Yes ) Patient Requires Transmission-Based No Precautions Height and Weight Body Mass Index (BMI) 26.3 BMI Classification Overweight Vital Signs Temperature (97.8 F-99.1 F) 96.4 F L Temperature Source Temporal Pulse Rate (60-100) 74 Pulse Location Monitor Respiratory Rate (12-18) 16 Respiratory rate source Observation Oxygen Delivery Method Room Air Blood Pressure (90/60-120/80) 122/51 H Blood Pressure Mean (mm Hg) 74 Source Monitor Position Sitting Blood Pressure Location Left Arm History Since Last Visit- (Skip if this is Patient's initial visit) Have you changed medications since your No last visit? Any new allergies or adverse reactions No Had a fall/change in ADL's that may No increase risk of falls Signs or symptoms of abuse and/or No neglect since last visit Have you been in the hospital since your No last visit? Has dressing in place as prescribed Yes Has compression in place as prescribed Yes Has offloadiing in place as prescribed N/A Experienced any changes in pain level or No management Left Footwear Regular Shoe Right Footwear Regular Shoe Pain Scale: 0-10 Numeric Is Patient Pain Free? Yes - Nurse 1 - General Ulcer Measurement Start: 06/25/21 13:16 Freq: Status: Active Protocol: Activity Type Activity Date Activity User E-Sign Co-Sign Detail Recorded Client Recorded Date Recorded By Document 06/25/21 13:16 [facility] [id number] 06/25/21 13:20 [facility] 06/25/21 13:16 Wound Center Nurse 1 #5 right ankle -Combined with other wound No -Current Size (cm) - Length 0.8 -Current Size (cm) - Width 0.5 -Current Size (cm) - Depth 0.2 -Total Square Cm 0.40 -Photo Taken No -Epithelialization None Present -Tunneling No -Undermining/Tunneling No -Circular Undermining No -Exudate Amt Medium -Exudate Type Serosanguineous -Wound Margin Thickened & Rolled Under -Granulation Amt Medium (34-66%) -Granulation Quality Red -Slough/Fibrin Yes -Necrosis Amt Medium (34-66%) -Necrotic Tissue Type Adherent Slough -Texture (Cammie-wound Skin Appearance) Assessed, Scarring -Moisture (Cammie-wound Skin Appearance) Assessed -Color (Cammie-wound Skin Appearance) Assessed -Temperature (Cammie-wound Skin No Abnormality Appearance) (Pt Warm) -Tenderness on Palpation (Cammie-wound No Skin Appearance) -Ulcer Cleansing Rinsed/ Irrigated with Saline -Foul Odor after Cleansing No -Anesthetic Used 5% Lidocaine Gel Lower Limb Edema Present Yes Right Calf (cm) 31.2 Right Ankle (cm) 23 WC - Nurse 2 - General Ulcer CM Notes Start: 06/25/21 13:16 Freq: Status: Active Protocol: Activity Type Activity Date Activity User E-Sign Co-Sign Detail Recorded Client Recorded Date Recorded By Document 06/25/21 13:42 [address] [id number] 06/25/21 13:43 PL 06/25/21 13:42 Wound Center Nurse 2 #5 right ankle -Time 13:36 -Correct Patient Yes -Correct Side, Site, Position Yes -Correct Procedure Yes -Procedure Performed Yes -Type of Procedure Debridement -Clinical Debridement Subcutaneous -Tissue Removed Subcutaneous -Post Debridement (cm) - Length 1.0 -Post Debridement (cm) - Width 0.8 -Post Debridement (cm) - Depth 0.2 -Total Square (Post) (cm) 0.80 -Area of Debridement (cm) - Length 1 -Area of Debridement (cm) - Width 0.8 -Total Square (Area) (cm) 0.8 -Tunneling No -Undermining/Tunneling No -Circular Undermining No -Wound/Ulcer Outcome Not Healed -Ulcer Cleansing Rinsed/ Irrigated with Saline -Foul Odor after Cleansing No -Bioengineered Tissue No -Bleeding Controlled with Pressure -Treatment Response Procedure Tolerated Well -Debridement - Subq, 1st 20sq cm Yes Pain Scale: 0-10 Numeric Is Patient Pain Free? Yes - Nurse 3 - General Ulcer D/C NN Start: 06/25/21 13:16 Freq: Status: Active Protocol: Activity Type Activity Date Activity User E-Sign Co-Sign Detail Recorded Client Recorded Date Recorded By Document 06/25/21 13:51 TRAMAINE [id number] 06/25/21 13:52 TRAMAINE 06/25/21 13:51 Wound Care Nurse 3 #5 right ankle -Ulcer Cleansing Rinsed/ Irrigated with Saline -Foul Odor after Cleansing No -Negative Pressure Wound Therapy N/A -Primary Dressing Applied C Hydrogel ($) -Primary Dressing Covered/Secured with Dry Gauze, Secured with Tape Pain Scale: 0-10 Numeric Is Patient Pain Free? Yes WC - Visit Discharge Discharge Condition Stable Ambulatory Status Wheelchair Accompanied by caregiver Medication Reconcilliation completed & Yes provided to patient/care provider Clinical Summary of Care Provided Yes Assessment/Plan Assessment/Plan (1) Diabetic ulcer of right ankle: CODE(S): E11.622 - Type 2 diabetes mellitus with other skin ulcer; L97.319 - Non-pressure chronic ulcer of right ankle with unspecified severity (2) Ulcer of right ankle: CODE(S): L97.319 - Non-pressure chronic ulcer of right ankle with unspecified severity (3) Diabetes: CODE(S): E11.9 - Type 2 diabetes mellitus without complications (4) Smoker: CODE(S): F17.200 - Nicotine dependence, unspecified, uncomplicated (5) Edema of right lower extremity: CODE(S): R60.0 - Localized edema PLAN: Subcutaneous debridement was performed today. Wound bed is a nice beefy pink. Wound care - Right lateral hip remains healed. Right lateral ankle collagen hydrogel covered with adaptic and topped with gauze daily. He is using a 30-40 mmHg compression stocking. The bruising on his right lateral small toe has resolved. Tissue is intact. Recommend using a donut over ankle at night to prevent any pressure on right lateral ankle. Wound culture of the right lateral culture was obtained on 01/01/21 which was positive for MRSA and Corynebacterium striatum. Completed Doxycycline. Right ankle x-ray from 01/22/21 showed Soft tissue swelling around ankle. Arterial and venous studies done 02/26/21 with results discussed in HPI. Operative cultures from 09/14/20 showed E. coli in the bone and was negative or organisms. He was treated with Levaquin. Prealbumin from 09/15/20 was 18.1. Encourage nutritional supplementation with protein to help the healing process. Follow up 2 weeks. Instructed to call or come in sooner if develop any concerns.
[2021-07-09 13:08] VITALS: BP 115/47; PULSE 84; BMI 26.3
--- NOTE | 2021-07-09 15:10 | PCM.WC.PN ---
History of Present Illness Date of Service: 07/09/21 Chief Complaint: Nonhealing diabetic ulcer right lateral ankle. History of Wound: Surgery 09/14/20 - Excision right trochanteric pressure sore, Stage IV, with partial ostectomy for osteomyelitis. Wound care - Right lateral ankle collagen hydrogel covered with adaptic and topped with gauze daily. Right lateral hip remains healed. He is using a zip up compression sleeve to bilateral lower extremity. Wound culture of the right lateral culture was obtained on 01/01/21 which was positive for MRSA and Corynebacterium striatum. He was started on Doxycycline. Operative cultures - Bone was positive for E. coli and Soft Tissue was negative. He completed Levaquin. Pathology - positive for acute and chronic osteomyelitis. Prealbumin from 09/15/20 was 18.1. HgbA1c from 09/14/[address] on 07/31/2020 did not show evidence of osteomyelitis. Ulcerating lesion in the lateral posterior aspect of the right buttock with increased markings in the subcutaneous fat. This abuts the underlying gluteus muscle. Right lateral ankle ulcer has slowed down healing. Arterial studies done 02/26/21 - The right ankle brachial index by the dorsalis pedis is 1.01. The left ankle brachial index by the dorsalis pedis is 1.05. Triphasic Doppler waveforms are noted at ankle level bilaterally. Arterial flow appears normal at ankle level bilaterally, and at digital level on the left. There is evidence mild arterial occlusive disease at digital level on the right. Venous studies completed 02/26/21 - Valvular competence appears intact within the proximal deep venous systems bilaterally. The great saphenous veins appear bilaterally patent and compressible segmentally. Sapheno-femoral junctions are bilaterally competent . Valvular competence appears to be intact segmentally within the great saphenous veins bilaterally. Small saphenous veins are patent and competent bilaterally. Today he denies any fever, chills, n/v. Progress of Wound: Right lateral ankle ulcer is slightly smaller, the base of the ulcer is beefy pink. Objective Data Objective Data Vital Signs: Vital Signs Temp Pulse Resp BP 96.4 F L 84 16 115/47 L 06/25/21 13:16 07/09/21 13:08 06/25/21 13:16 07/09/21 13:08 Oxygen Delivery Method Room Air Weight: 308 lb 10.354 oz Body Mass Index (BMI) 26.3 Charges/Coding Procedures Integumentary 111xxx-113xx: 31862 Berna subq tissue 20 sq cm/< Physical Exam Const alert General Appearance: cooperative HEENT normocephalic Resp normal respiratory effort Cardio regular rate Extremity no calf tenderness Extremity Narrative: +1 edema of lower legs/ankles/feet Skin Wound Narrative: Right lateral ankle ulcer is smaller in size, the base of the ulcer is pink, the edges still are curling in. Neuro Sensorium / Orientation: awake and alert Debridement Note Debridement Note Wound debrided: lateral ankle ulcer Laterality: Right Type of Debridement: Excisional debridement Anesthesia Used: 4% Lidocaine Solution Depth: Down to and including healthy tissue and in the subcutaneous layer Percentage of wound debrided: 100 Instrument Used: 3mm curette Tissue Removed: non viable tissue and slough Severity: Fat Layer Exposed Amount of bleeding with debridement: Mild Bleeding Controlled with: Pressure Patient tolerated procedure: Patient tolerated procedure well Post-Debridement Measurements and Additional Note: Post-Debridement Measurements/Treatment - Nurse 1 - General Ulcer Assessment Start: 06/25/21 13:16 Freq: Status: Active Protocol: .JORJET Activity Type Activity Date Activity User E-Sign Co-Sign Detail Recorded Client Recorded Date Recorded By Document 06/25/21 13:16 [facility] [id number] 06/25/21 13:20 [facility] Document 07/09/21 13:08 [place] [id number] 07/09/21 13:11 [place] 06/25/21 07/09/21 13:16 13:08 - Today's Visit Information Type of service Follow-up Visit Follow-up Visit (Physician/CONTACT CENTER ENGINEER (Physician/CONTACT CENTER ENGINEER ) ) Arrival Mode Ambulatory Wheelchair Transfer Assistance None Accompanied by FRIEND Patient Identification Verified (Name & Yes Yes ) Patient Requires Transmission-Based No No Precautions Height and Weight Body Mass Index (BMI) 26.3 26.3 BMI Classification Overweight Overweight Vital Signs Temperature (97.8 F-99.1 F) 96.4 F L Temperature Source Temporal Pulse Rate (60-100) 74 84 Pulse Location Monitor Monitor Respiratory Rate (12-18) 16 Respiratory rate source Observation Oxygen Delivery Method Room Air Blood Pressure (90/60-120/80) 122/51 H 115/47 L Blood Pressure Mean (mm Hg) 74 69 Source Monitor Monitor Position Sitting Blood Pressure Location Left Arm History Since Last Visit- (Skip if this is Patient's initial visit) Have you changed medications since your No No last visit? Any new allergies or adverse reactions No No Had a fall/change in ADL's that may No No increase risk of falls Signs or symptoms of abuse and/or No No neglect since last visit Have you been in the hospital since your No No last visit? Has dressing in place as prescribed Yes Yes Has compression in place as prescribed Yes Yes Has offloadiing in place as prescribed N/A N/A Experienced any changes in pain level or No No management Left Footwear Regular Shoe Regular Shoe Right Footwear Regular Shoe Regular Shoe Pain Scale: 0-10 Numeric Is Patient Pain Free? Yes Yes WC - Nurse 1 - General Ulcer Measurement Start: 06/25/21 13:16 Freq: Status: Active Protocol: Activity Type Activity Date Activity User E-Sign Co-Sign Detail Recorded Client Recorded Date Recorded By Document 06/25/21 13:16 [facility] [id number] 06/25/21 13:20 [facility] Document 07/09/21 13:08 [place] [id number] 07/09/21 13:11 [place] 06/25/21 07/09/21 13:16 13:08 Wound Center Nurse 1 #5 right ankle -Combined with other wound No No -Current Size (cm) - Length 0.8 0.5 -Current Size (cm) - Width 0.5 0.3 -Current Size (cm) - Depth 0.2 0.2 -Total Square Cm 0.40 0.15 -Date of Last Picture (Recall this 07/09/21 field) -Photo Taken No Yes -Epithelialization None Present -Tunneling No No -Undermining/Tunneling No No -Circular Undermining No No -Change in Wound Grade/Stage No -Exudate Amt Medium Medium -Exudate Type Serosanguineous Serosanguineous -Wound Margin Thickened & Thickened & Rolled Under Rolled Under -Granulation Amt Medium (34-66%) Medium (34-66%) -Granulation Quality Red Navarro -Slough/Fibrin Yes -Necrosis Amt Medium (34-66%) Medium (34-66%) -Necrotic Tissue Type Adherent Slough Adherent Slough -Structure Exposed N/A -Texture (Cammie-wound Skin Appearance) Assessed, No Abnormality, Scarring Assessed -Moisture (Cammie-wound Skin Appearance) Assessed No Abnormality, Assessed -Color (Cammie-wound Skin Appearance) Assessed No Abnormality, Assessed -Temperature (Cammie-wound Skin No Abnormality No Abnormality Appearance) (Pt Warm) (Pt Warm) -Tenderness on Palpation (Cammie-wound No No Skin Appearance) -Ulcer Cleansing Rinsed/ Rinsed/ Irrigated with Irrigated with Saline Saline -Foul Odor after Cleansing No No -Anesthetic Used 5% Lidocaine 4% Lidocaine Gel Solution Lower Limb Edema Present Yes Right Calf (cm) 31.2 30 Right Ankle (cm) 23 27 WC - Nurse 2 - General Ulcer CM Notes Start: 06/25/21 13:16 Freq: Status: Active Protocol: Activity Type Activity Date Activity User E-Sign Co-Sign Detail Recorded Client Recorded Date Recorded By Document 06/25/21 13:42 PL [id number] 06/25/21 13:43 PL Document 07/09/21 13:23 [id number] 07/09/21 13:24 VIELKA 06/25/21 07/09/21 13:42 13:23 Wound Center Nurse 2 #5 right ankle -Time 13:36 13:24 -Correct Patient Yes Yes -Correct Side, Site, Position Yes Yes -Correct Procedure Yes Yes -Procedure Performed Yes Yes -Type of Procedure Debridement Debridement -Clinical Debridement Subcutaneous Subcutaneous -Tissue Removed Subcutaneous Subcutaneous -Post Debridement (cm) - Length 1.0 0.6 -Post Debridement (cm) - Width 0.8 0.5 -Post Debridement (cm) - Depth 0.2 0.2 -Total Square (Post) (cm) 0.80 0.30 -Area of Debridement (cm) - Length 1 0.6 -Area of Debridement (cm) - Width 0.8 0.5 -Total Square (Area) (cm) 0.8 0.30 -Tunneling No No -Undermining/Tunneling No No -Circular Undermining No No -Wound/Ulcer Outcome Not Healed Not Healed -Ulcer Cleansing Rinsed/ Rinsed/ Irrigated with Irrigated with Saline Saline -Foul Odor after Cleansing No No -Bioengineered Tissue No No -Bleeding Controlled with Pressure Pressure -Treatment Response Procedure Procedure Tolerated Well Tolerated Well -Offloading No -Debridement - Subq, 1st 20sq cm Yes Yes Pain Scale: 0-10 Numeric Is Patient Pain Free? Yes Yes WC - Nurse 3 - General Ulcer D/C NN Start: 06/25/21 13:16 Freq: Status: Active Protocol: Activity Type Activity Date Activity User E-Sign Co-Sign Detail Recorded Client Recorded Date Recorded By Document 06/25/21 13:51 TRAMAINE [id number] 06/25/21 13:52 TRAMAINE 06/25/21 13:51 Wound Care Nurse 3 #5 right ankle -Ulcer Cleansing Rinsed/ Irrigated with Saline -Foul Odor after Cleansing No -Negative Pressure Wound Therapy N/A -Primary Dressing Applied C Hydrogel ($) -Primary Dressing Covered/Secured with Dry Gauze, Secured with Tape Pain Scale: 0-10 Numeric Is Patient Pain Free? Yes WC - Visit Discharge Discharge Condition Stable Ambulatory Status Wheelchair Accompanied by caregiver Medication Reconcilliation completed & Yes provided to patient/care provider Clinical Summary of Care Provided Yes Assessment/Plan Assessment/Plan (1) Diabetic ulcer of right ankle: CODE(S): E11.622 - Type 2 diabetes mellitus with other skin ulcer; L97.319 - Non-pressure chronic ulcer of right ankle with unspecified severity (2) Ulcer of right ankle: CODE(S): L97.319 - Non-pressure chronic ulcer of right ankle with unspecified severity (3) Diabetes: CODE(S): E11.9 - Type 2 diabetes mellitus without complications (4) Smoker: CODE(S): F17.200 - Nicotine dependence, unspecified, uncomplicated (5) Edema of right lower extremity: CODE(S): R60.0 - Localized edema PLAN: Subcutaneous debridement was performed today. Wound bed is a nice beefy pink. Wound care - Right lateral ankle collagen hydrogel covered with adaptic and topped with gauze daily. He is using a 30-40 mmHg compression stocking. Recommend using a donut over ankle at night to prevent any pressure on right lateral ankle. Wound culture of the right lateral culture was obtained on 01/01/21 which was positive for MRSA and Corynebacterium striatum. Completed Doxycycline. Right ankle x-ray from 01/22/21 showed Soft tissue swelling around ankle. Arterial and venous studies done 02/26/21 with results discussed in HPI. Operative cultures from 09/14/20 showed E. coli in the bone and was negative or organisms. He was treated with Levaquin. Prealbumin from 09/15/20 was 18.1. Encourage nutritional supplementation with protein to help the healing process. Follow up 3 weeks due to the holiday and vacation. Instructed to call or come in sooner if develop any concerns.
== END 2021-07-17 23:59 | disposition home or self-care (01) ==
LOC: WC 13:00
PROVIDERS: PCP Student in an Organized Health Care Education/Training Program; Referring Provider Family Medicine; Visit Provider Nurse Practitioner Family
DX: E11.622 Type 2 diabetes mellitus with other skin ulcer (principal); L97.312 Non-pressure chronic ulcer of right ankle with fat layer exposed; R60.0 Localized edema; S90.31XA Contusion of right foot, initial encounter; F17.200 Nicotine dependence, unspecified, uncomplicated; Z86.14 Personal history of Methicillin resistant Staphylococcus aureus infection; X58.XXXA Exposure to other specified factors, initial encounter
CPT/HCPCS: 11042

== ENCOUNTER 2021-07-30 13:00 | Outpatient (RCR) | payer MEDICARE, SELFPAY ==
[2021-07-18 00:44] VITALS: BP 115/47; PULSE 84; RESP 16; TEMP 35.8; BMI 26.3
[2021-07-30 13:05] VITALS: BP 133/70; PULSE 88; TEMP 36.1; BMI 26.3
--- NOTE | 2021-07-30 15:21 | PCM.WC.PN ---
History of Present Illness Date of Service: 07/30/21 Chief Complaint: Nonhealing diabetic ulcer right lateral ankle. History of Wound: Surgery 09/14/20 - Excision right trochanteric pressure sore, Stage IV, with partial ostectomy for osteomyelitis. Wound care - Right lateral ankle collagen hydrogel covered with adaptic and topped with gauze daily. He is using a zip up compression sleeve to bilateral lower extremity. Wound culture obtained today, 07/30/21 due to no improvement in the ulcer. Depending on the results of the culture, it may necessitate the need for treatment with antibiotics. Wound culture of the right lateral culture was obtained on 01/01/21 which was positive for MRSA and Corynebacterium striatum. He was started on Doxycycline. Operative cultures - Bone was positive for E. coli and Soft Tissue was negative. He completed Levaquin. Pathology - positive for acute and chronic osteomyelitis. Prealbumin from 09/15/20 was 18.1. HgbA1c from 09/14/[address] on 07/31/2020 did not show evidence of osteomyelitis. Ulcerating lesion in the lateral posterior aspect of the right buttock with increased markings in the subcutaneous fat. This abuts the underlying gluteus muscle. Right lateral ankle ulcer has slowed down healing. Arterial studies done 02/26/21 - The right ankle brachial index by the dorsalis pedis is 1.01. The left ankle brachial index by the dorsalis pedis is 1.05. Triphasic Doppler waveforms are noted at ankle level bilaterally. Arterial flow appears normal at ankle level bilaterally, and at digital level on the left. There is evidence mild arterial occlusive disease at digital level on the right. Venous studies completed 02/26/21 - Valvular competence appears intact within the proximal deep venous systems bilaterally. The great saphenous veins appear bilaterally patent and compressible segmentally. Sapheno-femoral junctions are bilaterally competent . Valvular competence appears to be intact segmentally within the great saphenous veins bilaterally. Small saphenous veins are patent and competent bilaterally. Today he denies any fever, chills, n/v. Progress of Wound: Right lateral ankle ulcer is stable. No improvement. His edema has increased. He continues to wear his compression stockings, but they are over 6 months old, so may need to be replaced. Objective Data Objective Data Vital Signs: Vital Signs Temp Pulse Resp BP 97.0 F L 88 16 133/70 H 07/30/21 13:05 07/30/21 13:05 07/18/21 00:44 07/30/21 13:05 Weight: 308 lb 10.354 oz Body Mass Index (BMI) 26.3 Charges/Coding Procedures Integumentary 111xxx-113xx: 01415 Berna subq tissue 20 sq cm/< Physical Exam Const alert General Appearance: cooperative HEENT normocephalic Resp normal respiratory effort Cardio regular rate Extremity no calf tenderness Extremity Narrative: +1 pitting edema of lower legs/ankles/feet Skin Wound Narrative: Right lateral ankle ulcer is stable the base of the ulcer is pink. Neuro Sensorium / Orientation: awake and alert Debridement Note Debridement Note Wound debrided: Lateral ankle ulcer Laterality: Right Type of Debridement: Excisional debridement Anesthesia Used: 5% Lidocaine Gel Depth: Down to and including healthy tissue and in the subcutaneous layer Percentage of wound debrided: 100 Instrument Used: 5mm curette Tissue Removed: Nonviable tissue and slough Severity: Fat Layer Exposed Amount of bleeding with debridement: Mild Bleeding Controlled with: Pressure Patient tolerated procedure: Patient tolerated procedure well Post-Debridement Measurements and Additional Note: Post-Debridement Measurements/Treatment WC - Nurse 1 - General Ulcer Assessment Start: 07/30/21 13:05 Freq: Status: Active Protocol: NADIA Activity Type Activity Date Activity User E-Sign Co-Sign Detail Recorded Client Recorded Date Recorded By Document 07/30/21 13:05 HARDIK [id number] 07/30/21 13:06 HARDIK 07/30/21 13:05 - Today's Visit Information Type of service Follow-up Visit (Physician/DATA CODER OPERATOR ) Arrival Mode Wheelchair Patient Identification Verified (Name & Yes ) Height and Weight Body Mass Index (BMI) 26.3 BMI Classification Overweight Vital Signs Temperature (97.8 F-99.1 F) 97.0 F L Temperature Source Temporal Pulse Rate (60-100) 88 Pulse Location Monitor Blood Pressure (90/60-120/80) 133/70 H Blood Pressure Mean (mm Hg) 91 Source Monitor Position Sitting Blood Pressure Location Right Arm History Since Last Visit- (Skip if this is Patient's initial visit) Have you changed medications since your No last visit? Any new allergies or adverse reactions No Had a fall/change in ADL's that may No increase risk of falls Signs or symptoms of abuse and/or No neglect since last visit Have you been in the hospital since your No last visit? Has dressing in place as prescribed Yes Has compression in place as prescribed Yes Has offloadiing in place as prescribed N/A Experienced any changes in pain level or No management Left Footwear Regular Shoe Right Footwear Regular Shoe Pain Scale: 0-10 Numeric Is Patient Pain Free? Yes - Nurse 1 - General Ulcer Measurement Start: 07/30/21 13:05 Freq: Status: Active Protocol: Activity Type Activity Date Activity User E-Sign Co-Sign Detail Recorded Client Recorded Date Recorded By Document 07/30/21 13:05 KR [id number] 07/30/21 13:06 HARDIK 07/30/21 13:05 Wound Center Nurse 1 #5 right ankle -Current Size (cm) - Length 0.2 -Current Size (cm) - Width 0.1 -Current Size (cm) - Depth 0.1 -Total Square Cm 0.02 -Exudate Amt Small -Exudate Type Serosanguineous -Wound Margin Distinct, Outline Attached -Granulation Amt Small (1-33%) -Granulation Quality Devers -Necrosis Amt None Present (0 %) -Necrotic Tissue Type Adherent Slough -Texture (Cammie-wound Skin Appearance) Assessed, Scarring -Color (Cammie-wound Skin Appearance) No Abnormality, Assessed -Temperature (Cammie-wound Skin No Abnormality Appearance) (Pt Warm) -Tenderness on Palpation (Cammie-wound No Skin Appearance) -Ulcer Cleansing Rinsed/ Irrigated with Saline -Foul Odor after Cleansing No -Anesthetic Used 4% Lidocaine Solution Right Calf (cm) 26.6 Right Ankle (cm) 21 - Nurse 2 - General Ulcer CM Notes Start: 07/30/21 13:05 Freq: Status: Active Protocol: Activity Type Activity Date Activity User E-Sign Co-Sign Detail Recorded Client Recorded Date Recorded By Document 07/30/21 13:22 VIELKA [id number] 07/30/21 13:27 VIELKA 07/30/21 13:22 Wound Center Nurse 2 #5 right ankle -Time 13:27 -Correct Patient Yes -Correct Side, Site, Position Yes -Correct Procedure Yes -Procedure Performed Yes -Type of Procedure Debridement -Clinical Debridement Subcutaneous -Tissue Removed Subcutaneous -Post Debridement (cm) - Length 0.5 -Post Debridement (cm) - Width 0.4 -Post Debridement (cm) - Depth 0.1 -Total Square (Post) (cm) 0.20 -Area of Debridement (cm) - Length 0.5 -Area of Debridement (cm) - Width 0.4 -Total Square (Area) (cm) 0.20 -Tunneling No -Undermining/Tunneling No -Circular Undermining No -Wound/Ulcer Outcome Not Healed -Ulcer Cleansing Rinsed/ Irrigated with Saline -Foul Odor after Cleansing No -Bioengineered Tissue No -Bleeding Controlled with Pressure -Treatment Response Procedure Tolerated Well -Offloading No -Debridement - Subq, 1st 20sq cm Yes Pain Scale: 0-10 Numeric Is Patient Pain Free? Yes - Nurse 3 - General Ulcer D/C NN Start: 07/30/21 13:05 Freq: Status: Active Protocol: Activity Type Activity Date Activity User E-Sign Co-Sign Detail Recorded Client Recorded Date Recorded By Document 07/30/21 13:38 DL [id number] 07/30/21 13:39 DL 07/30/21 13:38 Wound Care Nurse 3 #5 right ankle -Ulcer Cleansing Rinsed/ Irrigated with Saline -Foul Odor after Cleansing No -Primary Dressing Applied NonAdherent Contact Layer -Other Dressing hydrogel -Primary Dressing Covered/Secured with Dry Gauze, Secured with Tape Right -Stockings Yes Treatment Response Procedure Tolerated Well Pain Scale: 0-10 Numeric Is Patient Pain Free? Yes - Visit Discharge Discharge Condition Stable Ambulatory Status Wheelchair Transportation Private Auto Facility Type Home Health Orders Sent Yes Assessment/Plan Assessment/Plan (1) Diabetic ulcer of right ankle: CODE(S): E11.622 - Type 2 diabetes mellitus with other skin ulcer; L97.319 - Non-pressure chronic ulcer of right ankle with unspecified severity (2) Ulcer of right ankle: CODE(S): L97.319 - Non-pressure chronic ulcer of right ankle with unspecified severity (3) Diabetes: CODE(S): E11.9 - Type 2 diabetes mellitus without complications (4) Smoker: CODE(S): F17.200 - Nicotine dependence, unspecified, uncomplicated (5) Edema of right lower extremity: CODE(S): R60.0 - Localized edema PLAN: Subcutaneous debridement was performed today. Wound bed is a nice beefy pink. Wound care - Right lateral ankle collagen hydrogel covered with adaptic and topped with gauze daily. He is using a 30-40 mmHg compression stocking. Although he is wearing his compression stockings, his edema has increased. Discussed elevating legs, trying double layer Tubigrip to see if this would be a better compression. Concerned that his compression stockings may have stretched out and are not giving good compression any longer. Wound culture obtained today, 07/30/21. Depending on the results of the culture it may necessitate treatment with antibiotics. Wound culture of the right lateral culture was obtained on 01/01/21 which was positive for MRSA and Corynebacterium striatum. Completed Doxycycline. Right ankle x-ray from 01/22/21 showed Soft tissue swelling around ankle. Arterial and venous studies done 02/26/21 with results discussed in HPI. Operative cultures from 09/14/20 showed E. coli in the bone and was negative or organisms. He was treated with Levaquin. Prealbumin from 09/15/20 was 18.1. Encourage nutritional supplementation with protein to help the healing process. Follow up 3 weeks. Instructed to call or come in sooner if develop any concerns.
--- NOTE | 2021-08-03 11:22 | WC ---
Patient was notified by this nurse to start a course of Doxycycline BID x 14 days from the medication he has in his possession. Patient was advised that he did not have enough medication on hand to contact the [facility] a perscription would be called in. Patient verbally acknowledged the instructions.
== END 2021-08-16 23:59 | disposition home or self-care (01) ==
LOC: WC 13:00
PROVIDERS: PCP Student in an Organized Health Care Education/Training Program; Referring Provider Family Medicine; Visit Provider Nurse Practitioner Family
DX: E11.622 Type 2 diabetes mellitus with other skin ulcer (principal); L97.312 Non-pressure chronic ulcer of right ankle with fat layer exposed; F17.200 Nicotine dependence, unspecified, uncomplicated; R60.0 Localized edema
CPT/HCPCS: 11042; 87070; 87075; 87077; 87205

== ENCOUNTER 2021-08-27 12:59 | Outpatient (RCR) | payer MEDICARE, SELFPAY ==
[2021-08-17 00:28] VITALS: BP 133/70; PULSE 88; RESP 16; TEMP 36.1; BMI 26.3
[2021-08-27 13:03] VITALS: BP 121/42; PULSE 89; TEMP 35.8; BMI 26.3
--- NOTE | 2021-08-27 13:37 | PCM.WC.PN ---
History of Present Illness Date of Service: 08/27/21 Chief Complaint: Nonhealing diabetic ulcer right lateral ankle. History of Wound: Surgery 09/14/20 - Excision right trochanteric pressure sore, Stage IV, with partial ostectomy for osteomyelitis. Wound care - Right lateral ankle collagen hydrogel covered with adaptic and topped with gauze daily. He is using a zip up compression sleeve to bilateral lower extremity. He now has a new ulcer on the right proximal lateral leg, just below the knee. This is from the zipper from his compression stockings. Wound care will be collagen hydrogel covered with adaptic and topped with gauze daily after washing with soap and water. Wound culture obtained on 07/30/21 which was positive for Proprionibacterium acnes, which he was started on Augmentin since he still drinks alcohol daily and may not tolerated Flagyl. Also started him on a probiotic and encouraged him to eat yogurt. Wound culture of the right lateral culture was obtained on 01/01/21 which was positive for MRSA and Corynebacterium striatum. He was started on Doxycycline. Operative cultures - Bone was positive for E. coli and Soft Tissue was negative. He completed Levaquin. Pathology - positive for acute and chronic osteomyelitis. Prealbumin from 09/15/20 was 18.1. HgbA1c from 09/14/[address] on 07/31/2020 did not show evidence of osteomyelitis. Ulcerating lesion in the lateral posterior aspect of the right buttock with increased markings in the subcutaneous fat. This abuts the underlying gluteus muscle. Right lateral ankle ulcer has slowed down healing. Arterial studies done 02/26/21 - The right ankle brachial index by the dorsalis pedis is 1.01. The left ankle brachial index by the dorsalis pedis is 1.05. Triphasic Doppler waveforms are noted at ankle level bilaterally. Arterial flow appears normal at ankle level bilaterally, and at digital level on the left. There is evidence mild arterial occlusive disease at digital level on the right. Venous studies completed 02/26/21 - Valvular competence appears intact within the proximal deep venous systems bilaterally. The great saphenous veins appear bilaterally patent and compressible segmentally. Sapheno-femoral junctions are bilaterally competent . Valvular competence appears to be intact segmentally within the great saphenous veins bilaterally. Small saphenous veins are patent and competent bilaterally. Today he denies any fever, chills, n/v. Progress of Wound: Right lateral ankle ulcer is almost healed. The new right proximal lateral leg ulcer is superficial. It was caused by the zipper on his compression stockings. Objective Data Objective Data Vital Signs: Vital Signs Temp Pulse Resp BP 96.5 F L 89 16 121/42 H 08/27/21 13:03 08/27/21 13:03 08/17/21 00:28 08/27/21 13:03 Weight: 308 lb 10.354 oz Body Mass Index (BMI) 26.3 Charges/Coding Procedures Integumentary 111xxx-113xx: [id number] Berna subq tissue 20 sq cm/< Physical Exam Const alert General Appearance: cooperative HEENT normocephalic Resp normal respiratory effort Cardio regular rate Extremity no calf tenderness Extremity Narrative: +1 pitting edema of lower legs/ankles/feet Skin Wound Narrative: Right lateral ankle ulcer is improved and smaller in size. New right lateral proximal leg ulcer, just below the knee is stable and superficial. Neuro Sensorium / Orientation: awake and alert Debridement Note Debridement Note Wound debrided: Lateral ankle ulcer Laterality: Right Type of Debridement: Excisional debridement Anesthesia Used: 5% Lidocaine Gel Depth: Down to and including healthy tissue and in the subcutaneous layer Percentage of wound debrided: 100 Instrument Used: - (1 mm curette) Tissue Removed: Nonviable tissue and slough Severity: Fat Layer Exposed Amount of bleeding with debridement: Mild Bleeding Controlled with: Pressure Patient tolerated procedure: Patient tolerated procedure well Post-Debridement Measurements and Additional Note: Post-Debridement Measurements/Treatment - Nurse 1 - General Ulcer Assessment Start: 08/27/21 13:03 Freq: Status: Active Protocol: NADIA Activity Type Activity Date Activity User E-sign Co-sign Detail Recorded Client Recorded Date Recorded By Document 08/27/21 13:03 HARDIK [id number] 08/27/21 13:07 HARDIK 08/27/21 13:03 - Today's Visit Information Type of service Follow-up Visit (Physician/VENDING STAND SUPERVISOR ) Arrival Mode Wheelchair Patient Identification Verified (Name & Yes ) Height and Weight Body Mass Index (BMI) 26.3 BMI Classification Overweight Vital Signs Temperature (97.8 F-99.1 F) 96.5 F L Temperature Source Temporal Pulse Rate (60-100) 89 Pulse Location Monitor Blood Pressure (90/60-120/80) 121/42 H Blood Pressure Mean (mm Hg) 68 Source Monitor Position Semi-Fowlers Blood Pressure Location Right Arm History Since Last Visit- (Skip if this is Patient's initial visit) Have you changed medications since your No last visit? Any new allergies or adverse reactions No Had a fall/change in ADL's that may No increase risk of falls Signs or symptoms of abuse and/or No neglect since last visit Have you been in the hospital since your No last visit? Has dressing in place as prescribed Yes Has compression in place as prescribed Yes Has offloadiing in place as prescribed N/A Experienced any changes in pain level or No management Left Footwear Regular Shoe Right Footwear Regular Shoe Pain Scale: 0-10 Numeric Is Patient Pain Free? Yes WC - Nurse 1 - General Ulcer Measurement Start: 08/27/21 13:03 Freq: Status: Active Protocol: Activity Type Activity Date Activity User E-sign Co-sign Detail Recorded Client Recorded Date Recorded By Document 08/27/21 13:03 HARDIK [id number] 08/27/21 13:07 HARDIK 08/27/21 13:03 Wound Center Nurse 1 #7 Right lateral leg -Current Size (cm) - Length 1 -Current Size (cm) - Width 0.5 -Current Size (cm) - Depth 0.1 -Total Square Cm 0.5 -Exudate Amt Medium -Exudate Type Serosanguineous -Wound Margin Distinct, Outline Attached -Granulation Amt Medium (34-66%) -Granulation Quality Red -Texture (Cammie-wound Skin Appearance) Assessed, Scarring -Moisture (Cammie-wound Skin Appearance) No Abnormality, Assessed -Color (Cammie-wound Skin Appearance) No Abnormality, Assessed -Tenderness on Palpation (Cammie-wound Yes Skin Appearance) -Ulcer Cleansing Rinsed/ Irrigated with Saline -Foul Odor after Cleansing No -Anesthetic Used 5% Lidocaine Gel #5 right ankle -Current Size (cm) - Length 0.2 -Current Size (cm) - Width 0.1 -Current Size (cm) - Depth 0.1 -Total Square Cm 0.02 -Exudate Amt Small -Exudate Type Serosanguineous -Wound Margin Distinct, Outline Attached -Granulation Amt Small (1-33%) -Granulation Quality [place] -Necrosis Amt None Present (0 %) -Texture (Cammie-wound Skin Appearance) Assessed, Scarring -Moisture (Cammie-wound Skin Appearance) No Abnormality, Assessed -Temperature (Cammie-wound Skin No Abnormality Appearance) (Pt Warm) -Tenderness on Palpation (Cammie-wound No Skin Appearance) -Ulcer Cleansing Rinsed/ Irrigated with Saline -Foul Odor after Cleansing No -Anesthetic Used 5% Lidocaine Gel WC - Nurse 2 - General Ulcer CM Notes Start: 08/27/21 13:03 Freq: Status: Active Protocol: Activity Type Activity Date Activity User E-sign Co-sign Detail Recorded Client Recorded Date Recorded By Document 08/27/21 13:22 VIELKA [id number] 08/27/21 13:25 VIELKA 08/27/21 13:22 Wound Center Nurse 2 #7 Right lateral leg -Time 13:23 -Correct Patient Yes -Correct Side, Site, Position Yes -Correct Procedure Yes -Procedure Performed Yes -Type of Procedure Debridement -Clinical Debridement Subcutaneous -Tissue Removed Subcutaneous -Post Debridement (cm) - Length 2.2 -Post Debridement (cm) - Width 0.8 -Post Debridement (cm) - Depth 0.1 -Total Square (Post) (cm) 1.76 -Area of Debridement (cm) - Length 2.2 -Area of Debridement (cm) - Width 0.8 -Total Square (Area) (cm) 1.76 -Tunneling No -Undermining/Tunneling No -Circular Undermining No -Wound/Ulcer Outcome Not Healed -Ulcer Cleansing Rinsed/ Irrigated with Saline -Foul Odor after Cleansing No -Bioengineered Tissue No -Bleeding Controlled with Pressure -Treatment Response Procedure Tolerated Well -Offloading No -Debridement - Subq, 1st 20sq cm Yes #5 right ankle -Time 13:24 -Correct Patient Yes -Correct Side, Site, Position Yes -Correct Procedure Yes -Procedure Performed Yes -Type of Procedure Debridement -Clinical Debridement Subcutaneous -Tissue Removed Subcutaneous -Post Debridement (cm) - Length 0.3 -Post Debridement (cm) - Width 0.2 -Post Debridement (cm) - Depth 0.1 -Total Square (Post) (cm) 0.06 -Area of Debridement (cm) - Length 0.3 -Area of Debridement (cm) - Width 0.2 -Total Square (Area) (cm) 0.06 -Tunneling No -Undermining/Tunneling No -Circular Undermining No -Wound/Ulcer Outcome Not Healed -Ulcer Cleansing Rinsed/ Irrigated with Saline -Foul Odor after Cleansing No -Bioengineered Tissue No -Bleeding Controlled with Pressure -Treatment Response Procedure Tolerated Well -Offloading No -Debridement - Subq, 1st 20sq cm No Pain Scale: 0-10 Numeric Is Patient Pain Free? Yes WC - Nurse 3 - General Ulcer D/C NN Start: 08/27/21 13:03 Freq: Status: Active Protocol: Activity Type Activity Date Activity User E-sign Co-sign Detail Recorded Client Recorded Date Recorded By Document 08/27/21 13:33 HARDIK [id number] 08/27/21 13:33 KR 08/27/21 13:33 Wound Care Nurse 3 #7 Right lateral leg -Ulcer Cleansing Rinsed/ Irrigated with Saline -Primary Dressing Applied C Hydrogel ($), NonAdherent Contact Layer -Primary Dressing Covered/Secured with Dry Gauze, Secured with Tape #5 right ankle -Primary Dressing Covered/Secured with Dry Gauze, Secured with Tape Pain Scale: 0-10 Numeric Is Patient Pain Free? Yes WC - Visit Discharge Discharge Condition Stable Ambulatory Status Wheelchair Transportation Private Auto Additional Wound Wound debrided: Lateral, proximal leg ulcer, just distal to the knee Laterality: Right Type of Debridement: Excisional debridement Anesthesia Used: 5% Lidocaine Gel Depth: Down to and including healthy tissue and in the subcutaneous layer Percentage of wound debrided: 100 Instrument Used: 3mm curette Tissue Removed: Nonviable tissue and slough Severity: Fat Layer Exposed Amount of bleeding with debridement: Mild Bleeding Controlled with: Pressure Patient tolerated procedure: Patient tolerated procedure well Assessment/Plan Assessment/Plan (1) Diabetic ulcer of right ankle: CODE(S): E11.622 - Type 2 diabetes mellitus with other skin ulcer; L97.319 - Non-pressure chronic ulcer of right ankle with unspecified severity (2) Ulcer of right ankle: CODE(S): L97.319 - Non-pressure chronic ulcer of right ankle with unspecified severity (3) Diabetes: CODE(S): E11.9 - Type 2 diabetes mellitus without complications (4) Smoker: CODE(S): F17.200 - Nicotine dependence, unspecified, uncomplicated (5) Edema of right lower extremity: CODE(S): R60.0 - Localized edema (6) Ulcer of right lower extremity with fat layer exposed: CODE(S): L97.912 - Non-pressure chronic ulcer of unspecified part of right lower leg with fat layer exposed PLAN: Plan Subcutaneous debridement was performed today on both the right lateral ankle and right lateral proximal leg ulcers. Wound care - Right lateral ankle and right lateral proximal leg ulcers collagen hydrogel covered with adaptic and topped with gauze daily after washing with soap and water. He is using a 30-40 mmHg compression stocking. Wound culture obtained on 07/30/21, which was positive for Proprionibacterium acnes. After discussing treatment with the patient, it was decided to start him on Augmentin and a probiotic than starting him on Flagyl since it could interact with alcohol if he decides to drink. Wound culture of the right lateral culture was obtained on 01/01/21 which was positive for MRSA and Corynebacterium striatum. Completed Doxycycline. Right ankle x-ray from 01/22/21 showed Soft tissue swelling around ankle. Arterial and venous studies done 02/26/21 with results discussed in HPI. Operative cultures from 09/14/20 showed E. coli in the bone and was negative or organisms. He was treated with Levaquin. Prealbumin from 09/15/20 was 18.1. Encourage nutritional supplementation with protein to help the healing process. Follow up 3 weeks. Instructed to call or come in sooner if develop any concerns.
== END 2021-09-16 23:59 | disposition home or self-care (01) ==
LOC: WC 12:59
PROVIDERS: PCP Student in an Organized Health Care Education/Training Program; Referring Provider Family Medicine; Visit Provider Nurse Practitioner Family
DX: E11.622 Type 2 diabetes mellitus with other skin ulcer (principal); L97.312 Non-pressure chronic ulcer of right ankle with fat layer exposed; L97.812 Non-pressure chronic ulcer of other part of right lower leg with fat layer exposed; R60.0 Localized edema; F17.200 Nicotine dependence, unspecified, uncomplicated
CPT/HCPCS: 11042

== ENCOUNTER 2021-09-24 13:02 | Outpatient (RCR) | payer MEDICARE, SELFPAY ==
[2021-09-17 00:23] VITALS: BP 121/42; PULSE 89; RESP 16; TEMP 35.8; BMI 26.3
[2021-09-24 13:11] VITALS: BP 127/64; PULSE 86; RESP 22; TEMP 36.4; BMI 26.3
--- NOTE | 2021-09-24 14:27 | PCM.WC.PN ---
History of Present Illness Date of Service: 09/24/21 Chief Complaint: Nonhealing diabetic ulcer right lateral ankle. History of Wound: Surgery 09/14/20 - Excision right trochanteric pressure sore, Stage IV, with partial ostectomy for osteomyelitis. Wound care - Right lateral ankle collagen hydrogel covered with adaptic and topped with gauze daily. He is using a zip up compression sleeve to bilateral lower extremity. He now has a new ulcer on the right proximal lateral leg, just below the knee. This is from the zipper from his compression stockings. Wound care will be collagen hydrogel covered with adaptic and topped with gauze daily after washing with soap and water. Wound culture obtained on 07/30/21 which was positive for Proprionibacterium acnes, which he was started on Augmentin since he still drinks alcohol daily and may not tolerated Flagyl. Also started him on a probiotic and encouraged him to eat yogurt. Wound culture of the right lateral culture was obtained on 01/01/21 which was positive for MRSA and Corynebacterium striatum. He was started on Doxycycline. Operative cultures - Bone was positive for E. coli and Soft Tissue was negative. He completed Levaquin. Pathology - positive for acute and chronic osteomyelitis. Prealbumin from 09/15/20 was 18.1. HgbA1c from 09/14/[address] on 07/31/2020 did not show evidence of osteomyelitis. Ulcerating lesion in the lateral posterior aspect of the right buttock with increased markings in the subcutaneous fat. This abuts the underlying gluteus muscle. Right lateral ankle ulcer has slowed down healing. Arterial studies done 02/26/21 - The right ankle brachial index by the dorsalis pedis is 1.01. The left ankle brachial index by the dorsalis pedis is 1.05. Triphasic Doppler waveforms are noted at ankle level bilaterally. Arterial flow appears normal at ankle level bilaterally, and at digital level on the left. There is evidence mild arterial occlusive disease at digital level on the right. Venous studies completed 02/26/21 - Valvular competence appears intact within the proximal deep venous systems bilaterally. The great saphenous veins appear bilaterally patent and compressible segmentally. Sapheno-femoral junctions are bilaterally competent . Valvular competence appears to be intact segmentally within the great saphenous veins bilaterally. Small saphenous veins are patent and competent bilaterally. Today he denies any fever, chills, n/v. Progress of Wound: Both the right lateral ankle ulcer and the right lateral leg ulcer is also healed today. Objective Data Objective Data Vital Signs: Vital Signs Temp Pulse Resp BP 97.5 F L 86 22 H 127/64 H 09/24/21 13:11 09/24/21 13:11 09/24/21 13:11 09/24/21 13:11 Weight: 308 lb 10.354 oz Body Mass Index (BMI) 26.3 Charges/Coding Visit Charges Office Visits / Consults: 18267 OV L3 Est Physical Exam Const alert General Appearance: cooperative HEENT normocephalic Resp normal respiratory effort Cardio regular rate Extremity no calf tenderness Extremity Narrative: +1 edema of lower legs/ankles/feet Skin Wound Narrative: Right lateral ankle ulcer is healed with fragile epithelial tissue present. The right lateral proximal leg ulcer is also healed today. Neuro Sensorium / Orientation: awake and alert Psych affect normal Debridement Note Debridement Note No debridement was completed: No debridement was completed today Post-Debridement Measurements and Additional Note: Post-Debridement Measurements/Treatment WC - Nurse 1 - General Ulcer Assessment Start: 09/24/21 13:11 Freq: Status: Active Protocol: WC.LOWEXT Activity Type Activity Date Activity User E-sign Co-sign Detail Recorded Client Recorded Date Recorded By Document 09/24/21 13:11 DL [id number] 09/24/21 13:19 DL 09/24/21 13:11 - Today's Visit Information Type of service Follow-up Visit (Physician/OLD TESTAMENT PROFESSOR ) Arrival Mode Wheelchair Transfer Assistance Manual Transfer Assist (Other) x1 Patient Identification Verified (Name & Yes ) Patient Requires Transmission-Based No Precautions Height and Weight Body Mass Index (BMI) 26.3 BMI Classification Overweight Vital Signs Temperature (97.8 F-99.1 F) 97.5 F L Temperature Source Temporal Pulse Rate (60-100) 86 Pulse Location Monitor Respiratory Rate (12-18) 22 H Respiratory rate source Observation Blood Pressure (90/60-120/80) 127/64 H Blood Pressure Mean (mm Hg) 85 Source Monitor History Since Last Visit- (Skip if this is Patient's initial visit) Have you changed medications since your No last visit? Any new allergies or adverse reactions No Had a fall/change in ADL's that may No increase risk of falls Signs or symptoms of abuse and/or No neglect since last visit Have you been in the hospital since your No last visit? Has dressing in place as prescribed Yes Has compression in place as prescribed Yes Has offloadiing in place as prescribed N/A Experienced any changes in pain level or No management Pain Scale: 0-10 Numeric Is Patient Pain Free? Yes WC - Nurse 1 - General Ulcer Measurement Start: 09/24/21 13:11 Freq: Status: Active Protocol: Activity Type Activity Date Activity User E-sign Co-sign Detail Recorded Client Recorded Date Recorded By Document 09/24/21 13:11 DL [id number] 09/24/21 13:19 DL 09/24/21 13:11 Wound Center Nurse 1 #7 Right lateral leg -Current Size (cm) - Length 0.1 -Current Size (cm) - Width 0.1 -Current Size (cm) - Depth 0.1 -Total Square Cm 0.01 -Photo Taken Yes -Exudate Amt None Present -Wound Margin Flat & Intact -Granulation Amt Large (67-100%) -Granulation Quality [place] -Necrosis Amt Small (1-33%) -Structure Exposed N/A -Texture (Cammie-wound Skin Appearance) Scarring -Moisture (Cammie-wound Skin Appearance) No Abnormality -Color (Cammie-wound Skin Appearance) No Abnormality -Temperature (Cammie-wound Skin No Abnormality Appearance) (Pt Warm) -Tenderness on Palpation (Cammie-wound Yes Skin Appearance) -Ulcer Cleansing Rinsed/ Irrigated with Saline -Foul Odor after Cleansing No -Anesthetic Used 4% Lidocaine Solution #5 right ankle -Current Size (cm) - Length 0.1 -Current Size (cm) - Width 0.1 -Current Size (cm) - Depth 0.1 -Total Square Cm 0.01 -Photo Taken Yes -Exudate Amt None Present -Wound Margin Flat & Intact -Granulation Amt Large (67-100%) -Granulation Quality [place] -Necrosis Amt None Present (0 %) -Structure Exposed N/A -Texture (Cammie-wound Skin Appearance) Scarring -Moisture (Cammie-wound Skin Appearance) No Abnormality -Temperature (Cammie-wound Skin No Abnormality Appearance) (Pt Warm) -Tenderness on Palpation (Cammie-wound No Skin Appearance) -Ulcer Cleansing Rinsed/ Irrigated with Saline -Foul Odor after Cleansing No -Anesthetic Used 4% Lidocaine Solution WC - Nurse 2 - General Ulcer CM Notes Start: 09/24/21 13:11 Freq: Status: Active Protocol: Activity Type Activity Date Activity User E-sign Co-sign Detail Recorded Client Recorded Date Recorded By Document 09/24/21 13:34 VIELKA [id number] 09/24/21 13:35 VIELKA 09/24/21 13:34 Wound Center Nurse 2 #7 Right lateral leg -Correct Patient No -Correct Side, Site, Position No -Correct Procedure No -Procedure Performed No -Post Debridement (cm) - Length 0 -Post Debridement (cm) - Width 0 -Post Debridement (cm) - Depth 0 -Total Square (Post) (cm) 0 -Area of Debridement (cm) - Length 0 -Area of Debridement (cm) - Width 0 -Total Square (Area) (cm) 0 -Wound/Ulcer Outcome Healed- Epithelialized #5 right ankle -Correct Patient No -Correct Side, Site, Position No -Correct Procedure No -Procedure Performed No -Post Debridement (cm) - Length 0 -Post Debridement (cm) - Width 0 -Post Debridement (cm) - Depth 0 -Total Square (Post) (cm) 0 -Area of Debridement (cm) - Length 0 -Area of Debridement (cm) - Width 0 -Total Square (Area) (cm) 0 -Wound/Ulcer Outcome Healed- Epithelialized Pain Scale: 0-10 Numeric Is Patient Pain Free? Yes Assessment/Plan Assessment/Plan (1) Diabetic ulcer of right ankle: CODE(S): E11.622 - Type 2 diabetes mellitus with other skin ulcer; L97.319 - Non-pressure chronic ulcer of right ankle with unspecified severity (2) Ulcer of right ankle: CODE(S): L97.319 - Non-pressure chronic ulcer of right ankle with unspecified severity (3) Diabetes: CODE(S): E11.9 - Type 2 diabetes mellitus without complications (4) Smoker: CODE(S): F17.200 - Nicotine dependence, unspecified, uncomplicated (5) Edema of right lower extremity: CODE(S): R60.0 - Localized edema (6) Ulcer of right lower extremity with fat layer exposed: CODE(S): L97.912 - Non-pressure chronic ulcer of unspecified part of right lower leg with fat layer exposed PLAN: Plan Both the right lateral ankle and right lateral proximal leg ulcers are healed today. Start to massage with lotion daily to help soften the scarring. Keep the lateral ankle ulcer covered with gauze for 1-2 weeks while wearing compression to prevent the fragile epithelial tissue from rubbing off. Continue to wear compression socks. Continue to keep legs elevated when sitting. Encouraged patient to stop smoking as it may have deleterious effects health. Follow up on an as needed basis.
== END 2021-09-25 13:04 | disposition home or self-care (01) ==
LOC: WC 13:02
PROVIDERS: PCP Student in an Organized Health Care Education/Training Program; Referring Provider Family Medicine; Visit Provider Nurse Practitioner Family
DX: Z09 Encounter for follow-up examination after completed treatment for conditions other than malignant neoplasm (principal); E11.9 Type 2 diabetes mellitus without complications; Z86.14 Personal history of Methicillin resistant Staphylococcus aureus infection; F17.200 Nicotine dependence, unspecified, uncomplicated; R60.0 Localized edema
CPT/HCPCS: 99213; G0463

== ENCOUNTER 2024-05-21 14:48 | Emergency (ER) | payer MEDICARE, SELFPAY ==
[2024-05-21 14:49] VITALS: BP 113/50; PULSE 114; RESP 18; TEMP 36.9; O2SAT 95
--- NOTE | 2024-05-21 15:08 | EDS_ITS ---
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 He states he is here to get it c hanged. Asked why he states because it has been 4-5 weeks and he is supposed to get it changed every 4 weeks. He states he is having no issues. He was diagnosed with infection couple weeks ago just recently finished the antibiotics and he has no symptoms. No abdominal pain, leakage around the catheter, back pain, fevers, chills, generalized malaise. When asked why he came to the ER, he states because the ER that I usually go to I have to wait too long. When asked why he goes to the ER to have this done instead of urology, he states he has transportation issues getting to [place], they only change Lopez's on certain days, he has changed his established urology practice 2 hours here in [place] but the practice at [facility] in [place] has not sent his records yet so we cannot get an appointment yet. 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 Essential tremor Hyperlipidemia Hypertension Diabetes mellitus type 2 in nonobese Bipolar disorder Alcoholism Home Medications ?Medication ?Instructions ?Recorded ?Last Taken ?Type gabapentin 600 mg tablet,extended 600 mg PO QHS Unknown History release 24 hr (Gralise) metoprolol succinate 100 mg 100 mg PO QHS 09/12/16 Unk nown History tablet,extended release 24 hr atorvastatin 40 mg tablet (Lipitor) 40 mg PO QHS 09/13 Unknown History levothyroxine 25 mcg tablet 25 mcg PO DAILY 06/19/20 U nknown History (Synthroid) lorazepam 1 mg tablet 1 mg PO Q8H PRN PRN Anxiety 06/19/20 Unknown History terazosin 5 mg capsule 5 mg PO QHS 06/19/20 Unknown History tramadol 50 mg tablet 50 mg PO Q12H PRN PRN Pain 0 06/19/20 Unknown History aspirin 325 mg tablet 325 mg PO QHS 09/07/20 Unkno wn History promethazine 25 mg tablet 25 mg PO Q6H PRN Nausea 08/18 11/07 Unknown History diazepam 5 mg tablet (Valium) 5 mg PO BID PRN muscle s pasm 7 09/19/20 Unknown Rx days #14 tabs docusate sodium 100 mg capsule 100 mg PO BID 30 days # 60 caps 09/19/20 Unknown Rx (DOK) levofloxacin 500 mg tablet 500 mg PO DAILY 21 days #21 tabs 09/19/20 Unknown Rx oxycodone-acetaminophen 5 mg-325 1 tab PO Q4H PRN pain (scale score 09/19/20 Unknown Rx mg tablet (Percocet) 7-10) 7 days #40 tabs polysaccharide iron complex 150 mg 150 mg PO DAILYCM 3 0 days #30 caps 09/19/20 Unknown Rx iron capsule (Ferrex) nystatin 100,000 unit/gram topical 1 applic topical BI D 14 days #30 12/09/20 Unknown Rx cream grams doxycycline monohydrate 100 mg 100 mg PO BID 21 days # 42 tabs 01/05/21 Unknown Rx tablet doxycycline monohydrate 100 mg 100 mg PO BID 21 days # 42 tabs 01/08/21 Unknown Rx tablet Allergy/AdvReac Type Severity Reaction Status Date / Time levofloxacin (From Levaquin) Allergy Other Verified 05/21/24 14:49 Surgical History (Updated 09/07/20 @ 13:41 by Argentina Ruiz) History of hand surgery History of bowel resection History of colonoscopy Social History household members: family Smoking Status: Current every day smoker tobacco type: cigarettes and cigars ROS ROS ED Constitutional Constitutional ED: Denies chills or fever(s) Eyes Eyes: Denies change in vision ENT ENT ED: Reports other Details: hard of hearing, no changes Cardiovascular Cardiovascular: Denies chest pain Respiratory/Chest Respiratory/Chest: Denies dyspnea Gastrointestinal Gastrointestinal: Denies abdominal pain, nausea or vomiting Genitourinary Genitourinary ED: Denies hematuria Integumentary Reports pruritus, rash and other Details: Chronic psoriasis lesions, no new rashes Neurologic Neurologic: Denies headache(s) EXAM Physical Exam Const Vital Signs: 05/21/24 14:49 Temperature 98.5 F Temperature Source Oral Pulse Rate 114 H Respiratory Rate 18 Blood Pressure 113/50 L Blood Pressure Mean 71 Pulse Ox 95 Oxygen Delivery Method Room Air Positive well nourished and well developed General Appearance ED: well developed and NAD HEENT Reports moist mucous membranes Eyes PERRL and EOMs intact bilaterally Resp normal respiratory effort Resp Narrative: Conversing in full sentences GI non-tender and non-distended Auscultation: normoactive bowel sounds Palpation: soft no CVA tenderness Narrative: Lopez catheter in place no signs of urethritis, uncircumcised penis normal appearing, scrotum normal appearing no testicular tenderness. No discharge or leakage of urine around the catheter. Transparent yellow urine within the catheter in the bag no blood. Extremity normal to inspection Neuro oriented x3, CN's II-XII intact bilaterally and moves all extremities Psych mental status grossly normal Skin Skin Narrative: Some scattered small erythematous nontender patches consistent with psoriasis. MDM MDM MDM Narrative Medical decision making narrative: Nursing to change the patient's Lopez. It is a 18 [place], he states they typically use a coud?. We discussed at length trying to follow-up at urology for this as opposed to having to go to the ER, they typically do this service. Discharge Plan Triage Chief Complaint: Lopez C/O ED Provider: Geoff Hood Dx/Rx/DC Orders Clinical Impression: Encounter for Lopez catheter replacement Instructions: ED Lopez Catheter, Care Prescriptions: No Action metoprolol succinate 100 MG tablet extended release 24 hr 100 mg PO QHS Patient Comments: Heart Gralise 600 MG tablet extended release 24 hr 600 mg PO QHS Patient Comments: Pain atorvastatin [Lipitor] 40 MG tablet 40 mg PO QHS Patient Comments: Lower Cholesterol Levels terazosin 5 mg capsule 5 mg PO QHS tramadol 50 mg tablet 50 mg PO Q12H PRN PRN (Reason: Pain) Patient Comments: TAKE 1 TABLET BY MOUTH EVERY 12 HOURS FOR 30 DAYS NEEDED FOR PAIN levothyroxine [Synthroid] 25 mcg Tablet 25 mcg PO DAILY lorazepam 1 mg tablet 1 mg PO Q8H PRN PRN (Reason: Anxiety) Patient Comments: TAKE 1 TABLET BY MOUTH AT BEDTIME aspirin 325 mg Tablet 325 mg PO QHS Patient Comments: pt to clarify with Dr Fenton if/when to stop aspirin promethazine 25 mg Tablet 25 mg PO Q6H PRN (Reason: Nausea) polysaccharide iron complex [Ferrex 150] 150 mg iron Capsule 150 mg PO DAILYCM 30 Days Qty: 30 1RF docusate sodium [DOK] 100 mg Capsule 100 mg PO BID 30 Days Qty: 60 1RF levofloxacin 500 mg tablet 500 mg PO DAILY 21 Days Qty: 21 1RF oxycodone-acetaminophen [Percocet] 5-325 mg tablet 1 tab PO Q4H PRN (Reason: pain (scale score 7-10)) 7 Days Qty: 40 0RF diazepam [Valium] 5 mg tablet 5 mg PO BID PRN (Reason: muscle spasm) 7 Days Qty: 14 0RF nystatin 100,000 unit/gram cream 1 applic topical BID 14 Days Qty: 30 1RF doxycycline monohydrate 100 mg tablet 100 mg PO BID 21 Days Qty: 42 1RF doxycycline monohydrate 100 mg tablet 100 mg PO BID 21 Days Qty: 42 1RF Primary Care Provider: Abelardo Adamson Referrals: Brian Ceballos MD [Med Staff - Active Staff] - Print Language: Azeri Disposition Disposition: Home, Self Care
[2024-05-21] MEDS: Lidocaine Jelly 2% 20 ML Syringe (URO-JET) 1 APPLIC TOPICAL (16:17)
== END 2024-05-21 16:52 | disposition home or self-care (01) ==
LOC: ED 15:18
PROVIDERS: Emergency Provider Emergency Medicine; PCP Nurse Practitioner Adult Health; Visit Provider Emergency Medicine
DX: R33.9 Retention of urine, unspecified (principal); E11.9 Type 2 diabetes mellitus without complications; F17.210 Nicotine dependence, cigarettes, uncomplicated; Z86.16 Personal history of COVID-19; Z86.73 Personal history of transient ischemic attack (TIA), and cerebral infarction without residual deficits
CPT/HCPCS: 51702; 99283

== ENCOUNTER 2024-07-19 17:52 | Emergency (ER) | payer MEDICARE, SELFPAY ==
[2024-07-19 17:53] VITALS: BP 176/102; PULSE 116
[2024-07-19 17:54] VITALS: BP 115/78; PULSE 115; RESP 16; TEMP 37; O2SAT 98
[2024-07-19 17:57] VITALS: BMI 20.1
[2024-07-19 21:53] VITALS: BP 152/94; PULSE 115
--- NOTE | 2024-07-19 22:29 | EDS_ITS ---
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 Essential tremor Hyperlipidemia Hypertension Diabetes mellitus type 2 in nonobese Bipolar disorder Alcoholism Home Medications ?Medication ?Instructions ?Recorded ?Last Taken ?Type gabapentin 600 mg tablet,extended 600 mg PO QHS Unknown History release 24 hr (Gralise) metoprolol succinate 100 mg 100 mg PO QHS 09/12/16 Unk nown History tablet,extended release 24 hr atorvastatin 40 mg tablet (Lipitor) 40 mg PO QHS 09/13 Unknown History levothyroxine 25 mcg tablet 25 mcg PO DAILY 06/19/20 U nknown History (Synthroid) lorazepam 1 mg tablet 1 mg PO Q8H PRN PRN Anxiety 06/19/20 Unknown History terazosin 5 mg capsule 5 mg PO QHS 06/19/20 Unknown History tramadol 50 mg tablet 50 mg PO Q12H PRN PRN Pain 0 06/19/20 Unknown History aspirin 325 mg tablet 325 mg PO QHS 09/07/20 Unkno wn History promethazine 25 mg tablet 25 mg PO Q6H PRN Nausea 08/18 11/07 Unknown History diazepam 5 mg tablet (Valium) 5 mg PO BID PRN muscle s pasm 7 09/19/20 Unknown Rx days #14 tabs docusate sodium 100 mg capsule 100 mg PO BID 30 days # 60 caps 09/19/20 Unknown Rx (DOK) levofloxacin 500 mg tablet 500 mg PO DAILY 21 days #21 tabs 09/19/20 Unknown Rx oxycodone-acetaminophen 5 mg-325 1 tab PO Q4H PRN pain (scale score 09/19/20 Unknown Rx mg tablet (Percocet) 7-10) 7 days #40 tabs polysaccharide iron complex 150 mg 150 mg PO DAILYCM 3 0 days #30 caps 09/19/20 Unknown Rx iron capsule (Ferrex) nystatin 100,000 unit/gram topical 1 applic topical BI D 14 days #30 12/09/20 Unknown Rx cream grams doxycycline monohydrate 100 mg 100 mg PO BID 21 days # 42 tabs 01/05/21 Unknown Rx tablet doxycycline monohydrate 100 mg 100 mg PO BID 21 days # 42 tabs 01/08/21 Unknown Rx tablet Allergy/AdvReac Type Severity Reaction Status Date / Time No Known Allergies Allergy Verified 07/19/24 17:54 Family History no significant family his Surgical History History of hand surgery History of bowel resection History of colonoscopy Social History household members: family Smoking Status: Current every day smoker tobacco type: cigarettes and cigars EXAM Physical Exam Const Vital Signs: 07/19/24 17:53 07/19/24 17:54 07/19/24 21:53 Temperature 98.6 F Temperature Source Oral Pulse Rate 116 H 115 H 115 H Respiratory Rate 16 Blood Pressure 176/102 H 115/78 152/94 H Blood Pressure Mean 126 90 113 Pulse Ox 98 Oxygen Delivery Method Room Air MDM MDM MDM Narrative Medical decision making narrative: HISTORY OF PRESENT ILLNESS: Chief complaint: Lopez change 78-year-old female presents for routine Lopez change. He has no complaints abdominal pain fever or trouble urinating. REVIEW OF SYSTEMS: Pertinent positives: None Pertinent negatives: None PHYSICAL EXAM: Nursing triage notes reviewed, Vital signs reviewed Constitutional: please see mdm Abdomen: Soft, there is no tenderness, rigidity, rebound or guarding, no obvious peritoneal signs, no palpable pulsatile abdominal masses, no auscultated abdominal bruit : No CVAT, Lopez catheter in place draining clear urine, urethra intact with no excoriations, lesions or signs of breakdown or infection Skin: No rash or lesions noted MEDICAL DECISION MAKING: Chief Complaint: please see HPI External records reviewed: Reviewed past ED note from 05/21/2024 for similar complaints Factors affecting care: Prostate issue urinary tension, Social determinants of health: none History obtained from others: none Consults: none MDM Narrative: The patient was hemodynamically stable, tachycardic otherwise afebrile and nontoxic-appearing. Exam unremarkable. Patient was asymptomatic. His Lopez was changed. Patient was implored to seek outpatient care for routine Lopez catheter changes. He was discharged home. The patient and/or family, caregivers express understanding. The patient and/or family, caregivers agrees with the plan. Shared decision making: I will have a discussion with the patient and or visitors regarding risk/benefits of further testing or admission. They will be made aware of of the risk/benefits inherent in this decision they will be given the opportunity to voice understanding. Total critical care time today provided was at least 0 minutes. This excludes separately billable procedures. Critical care time (if documented) is secondary to the patient having high probability of clinically significant/life threatening deterioration in the patient's condition which required my urgent intervention. Impression: 1. Encounter for Lopez catheter change 2. History of chronic indwelling Lopez Dispo: Discharge home This note was generated with ADOP dictation software. It may contain incorrect words, spelling, and punctuation that were not noted in review of the chart prior to signing. Discharge Plan Triage Chief Complaint: Lopez C/O ED Provider: Jaleel Cormier/Rx/DC Orders Prescriptions: No Action metoprolol succinate 100 MG tablet extended release 24 hr 100 mg PO QHS Patient Comments: Heart Gralise 600 MG tablet extended release 24 hr 600 mg PO QHS Patient Comments: Pain atorvastatin [Lipitor] 40 MG tablet 40 mg PO QHS Patient Comments: Lower Cholesterol Levels terazosin 5 mg capsule 5 mg PO QHS tramadol 50 mg tablet 50 mg PO Q12H PRN PRN (Reason: Pain) Patient Comments: TAKE 1 TABLET BY MOUTH EVERY 12 HOURS FOR 30 DAYS NEEDED FOR PAIN levothyroxine [Synthroid] 25 mcg Tablet 25 mcg PO DAILY lorazepam 1 mg tablet 1 mg PO Q8H PRN PRN (Reason: Anxiety) Patient Comments: TAKE 1 TABLET BY MOUTH AT BEDTIME aspirin 325 mg Tablet 325 mg PO QHS Patient Comments: pt to clarify with Dr Fenton if/when to stop aspirin promethazine 25 mg Tablet 25 mg PO Q6H PRN (Reason: Nausea) polysaccharide iron complex [Ferrex 150] 150 mg iron Capsule 150 mg PO DAILYCM 30 Days Qty: 30 1RF docusate sodium [DOK] 100 mg Capsule 100 mg PO BID 30 Days Qty: 60 1RF levofloxacin 500 mg tablet 500 mg PO DAILY 21 Days Qty: 21 1RF oxycodone-acetaminophen [Percocet] 5-325 mg tablet 1 tab PO Q4H PRN (Reason: pain (scale score 7-10)) 7 Days Qty: 40 0RF diazepam [Valium] 5 mg tablet 5 mg PO BID PRN (Reason: muscle spasm) 7 Days Qty: 14 0RF nystatin 100,000 unit/gram cream 1 applic topical BID 14 Days Qty: 30 1RF doxycycline monohydrate 100 mg tablet 100 mg PO BID 21 Days Qty: 42 1RF doxycycline monohydrate 100 mg tablet 100 mg PO BID 21 Days Qty: 42 1RF Primary Care Provider: NOT,DEFINED Referrals: NOT,DEFINED [Primary Care Provider] - Print Language: Ecuadorean
[2024-07-19 23:00] VITALS: BP 152/94; PULSE 115; RESP 16; TEMP 37; O2SAT 98
--- NOTE | 2024-07-19 23:02 | ED.RN ---
sotelo catheter replaced. Coude used. No complications. Catheter draining
== END 2024-07-19 23:03 | disposition home or self-care (01) ==
PROVIDERS: Emergency Provider Emergency Medicine; Referring Provider Emergency Medicine; Visit Provider Emergency Medicine
DX: Z46.6 Encounter for fitting and adjustment of urinary device (principal); E11.9 Type 2 diabetes mellitus without complications; F17.210 Nicotine dependence, cigarettes, uncomplicated; F17.290 Nicotine dependence, other tobacco product, uncomplicated; Z86.73 Personal history of transient ischemic attack (TIA), and cerebral infarction without residual deficits; Z86.16 Personal history of COVID-19
CPT/HCPCS: 51702; 99283